=== PATIENT | male | born 1950 | race Caucasian/White ===

== ENCOUNTER 2017-08-20 19:31 | Emergency (ER) | payer MEDICARE, OTHER ==
[~2017-08-20] VITALS: Ht 172.7 cm; Wt 77.1 kg
[~2017-08-20 19:31] MED LIST: APPLE CIDER VINEGAR; DICLOFENAC SODI75 MG PO; MECLIZINE HCL25 MG PO; OMEGA-3 SOFTGE1 EACH PO; REFRESH15 ML OP
[2017-08-20] MEDS ORDERED: OFLOXACIN5 M1 OP (19:44)
== END 2017-08-20 20:04 | disposition home or self-care (01) ==
LOC: ED 19:31
DX: S91.331A Puncture wound without foreign body, right foot, initial encounter (principal); Z79.899 Other long term (current) drug therapy; Z23 Encounter for immunization; W22.09XA Striking against other stationary object, initial encounter
CPT/HCPCS: 90471; 90715; 99282

== ENCOUNTER 2019-04-09 12:51 | Day surgery (SDC) | payer MEDICARE, OTHER ==
[~2019-04-09] VITALS: Ht 172.7 cm; Wt 78.0 kg
[~2019-04-09 12:51] MED LIST changes: +FISH OIL 1,0001 EAC2 NG; +OFLOXACIN5 M1 OP
--- NOTE | 2019-04-09 14:22 | NUR ---
04/09/19 1422 Sheets,Apurva 1406 PT ARRIVED TO PACU, PT WAKES OFF AND ON AND TALKS TO RN. PT DENIES PAIN AND NAUSEA. PT ENCOURAGED TO PASS GAS. 1415 O2 REMOVED, PT WAKES AND TALKING TO RN. HOB INCREASED SLIGHTLY.
--- NOTE | 2019-04-10 14:56 | PATH ---
[facility] [address] [place], [place] [address] Signed SPECIMEN(S): A RECTAL POLYP SPECIMEN SOURCE: A. RECTAL POLYP CLINICAL HISTORY: Surveillance. Postop: Hyperplastic lesion rectosigmoid. MICROSCOPIC DESCRIPTION: Histologic sections of all submitted blocks are examined by light microscopy. These findings, together with the gross examination, support the pathologic diagnosis. FINAL PATHOLOGIC DIAGNOSIS: Rectum, polyp, polypectomy: - Fragments of rectal mucosa with no histopathologic abnormality. - Negative for dysplasia or malignancy. COMMENT: Multiple additional levels were examined. Benign lymphoid aggregates are seen, which can sometimes appear as a polypoid mass during colonoscopy. Clinical correlation is required. NAL:caw:C2NR GROSS DESCRIPTION: The specimen, labeled "DT, rectal polyp," is received in formalin and consists of two pink-kinney soft tissue fragment(s) that measure 0.3-0.4 cm in greatest dimension. The specimen is entirely submitted in cassette (A1). JS (under the direct supervision of a pathologist) The Gross Description was prepared using a voice recognition system. The report was reviewed for accuracy; however, sound-alike word errors, addition and/or deletions may occur. If there is any question about this report, please contact Client Services. PERFORMING LABORATORY: The technical component was performed by [email or web address], [address] [place] [id number] (Licensed Customs Broker: Benita Holley MD; CLIA# [id number]). [facility], [address] [address] (Licensed Customs Broker: Taiwo Oviedo MD; CLIA# [id number]). PATIENT NAME: SONIYA MENESES PATHOLOGY DATE OF : 46 REPORT #: [id number] PHYSICIAN: CHERELLEYTE PATHOLOGY PCP: OSWALD TALAVERA MD REPORT IS CONFIDENTIAL AND NOT TO BE RELEASED WITHOUT AUTHORIZATION [address] [address] Signed Diagnostician: Tessa Finley MD Pathologist Electronically Signed 04/10/2019 Copies: ~ PATIENT NAME: SONIYA MENESES PATHOLOGY DATE OF : 46 REPORT #: [id number] PHYSICIAN: RACHEAL PATHOLOGY PCP: OSWALD TALAVERA MD REPORT IS CONFIDENTIAL AND NOT TO BE RELEASED WITHOUT AUTHORIZATION
--- NOTE | 2019-04-11 12:08 | OR ---
[facility] [address] [place], [place] [address] Signed DATE OF OPERATION: 04/09/2019 SURGEON: Mckenna Gordon MD PREOPERATIVE DIAGNOSES: 1. Family history of colon cancer (father). 2. Surveillance colonoscopy. POSTOPERATIVE DIAGNOSIS: Linear possibly hyperplastic versus adenomatous lesion of rectosigmoid. PROCEDURE PERFORMED: Total colonoscopy to cecum with biopsy of rectosigmoid mucosal lesion. ANESTHESIA: Intravenous sedation, fentanyl 100 mcg, Versed 5 mg. INDICATION: This 68-year-old white man is a patient of Dr. Maurer and well known to me from the past having undergone colonoscopy in 2001, 2005, and 2011. He does have family history of colon cancer in his father and polyps in a brother. He is currently symptom free. He is admitted to undergo surveillance colonoscopy, understand the risks of bleeding, infection, and perforation. Additionally, the patient has a history of total knee replacement and Ancef antibiotic was given preoperatively. FINDINGS: The prep was excellent. Complete colonoscopy was undertaken to the cecum without question. It had a linear lesion of the rectosigmoid, which may have been hyperplastic versus adenomatous. It was multiply biopsied. There were no other findings of concern. DESCRIPTION OF PROCEDURE: The patient was brought to the endoscopy suite and placed in lateral decubitus position, given intravenous sedation to the point of slurred speech and nystagmus. Digital rectal examination was normal. An Olympus video colonoscope was passed in the rectum and manipulated throughout the colon ultimately intubating the cecum. The ileocecal valve and appendiceal orifice were well visualized. The scope was then withdrawn and examination throughout showed no sign of abnormality into the rectosigmoid where a linear mucosal lesion was noted. Narrow band imaging showed this to be of uncertain etiology. Multiple biopsies were taken of Electronically Signed By: MCKENNA GORDON MD 04/11/19 1208 PATIENT NAME: SONIYA MENESES OPERATIVE REPORT DATE OF : 46 REPORT #: [id number] PHYSICIAN: MCKENNA GORDON MD PCP: SHUBHAM MAURER MD REPORT IS CONFIDENTIAL AND NOT TO BE RELEASED WITHOUT AUTHORIZATION [facility] [address] [place], [place] [address] Signed the lesion. The scope was then retroflexed, showing a bit of anal papilla hypertrophy, but no other abnormality. The scope was straightened, withdrawn, removed, and the patient was taken to recovery room in good condition. CONCLUDING DIAGNOSIS: Mucosal lesion in the rectosigmoid, uncertain etiology, biopsied. PLAN: Recommend repeat colonoscopy in 5 years due to family history of colon cancer in his father, sooner if symptoms should develop. We will be mindful of the pathology report pending regarding the rectosigmoid biopsy. MD CARMEN Barron/MODL /[id number] cc: Shubham Maurer MD Copies: SHUBHAM MAURER MD ~ Electronically Signed By: MCKENNA GORDON MD 04/11/19 1208 PATIENT NAME: SONIYA MENESES OPERATIVE REPORT DATE OF : 46 REPORT #: [id number] PHYSICIAN: MCKENNA GORDON MD PCP: SHUBHAM MAURER MD REPORT IS CONFIDENTIAL AND NOT TO BE RELEASED WITHOUT AUTHORIZATION
== END 2019-04-09 15:37 | disposition home or self-care (01) ==
LOC: OPS 12:51 → DS 14:00 → OPS 15:37
PROVIDERS: Surgery
PROC: 0DBP8ZX Excision of Rectum, Via Natural or Artificial Opening Endoscopic, Diagnostic (ICD-10-PCS; principal; 2019-04-09 14:00)
DX: Z12.11 Encounter for screening for malignant neoplasm of colon (principal); K62.1 Rectal polyp; Z80.0 Family history of malignant neoplasm of digestive organs; Z98.890 Other specified postprocedural states
CPT/HCPCS: 99153; G0500; J0690; J2250; J3010; J7121

== ENCOUNTER 2019-09-03 12:34 | Emergency (ER) | payer MEDICARE, OTHER ==
[~2019-09-03] VITALS: Ht 172.7 cm; Wt 82.5 kg
--- OUTSIDE RECORDS SUMMARY | ~2019-09-03 | XMS | Encounter Summary ---
Demographics + + + | Address | [address] | | | [place] [address] | + + + | Home Phone | | + + + | Preferred Language | Unknown | + + + | Marital Status | Single | + + + | Sabianism Affiliation | 1077 | + + + | Race | Unknown | + + + | Ethnic Group | Unknown | + + + Author + + + | Author | [facility] | | | and [place] | + + + | Organization | [facility] | | | and [place] | + + + | Address | Unknown | + + + | Phone | Unavailable | + + + Support + + + + + | Name | Relationship | Address | Phone | + + + + + | Ron Day | ECON | Unknown | | + + + + + | Henok Day | ECON | Unknown | | + + + + + | Bruno Day | ECON | Unknown | | + + + + + | Yung Vivar | ECON | [place] | | | | | [address] | | + + + + + | Santo Cervantes | ECON | Unknown | | + + + + + Care Team Providers + +------+ + | Care Shampoo Person Name | Role | Phone | + +------+ + | Shubham Maurer MD | PCP | | + +------+ + Reason for Visit + + + | Reason | Comments | + + + | Follow-up | left knee pain onset 1 month | + + + Encounter Details +--------+---------+ + + + | Date | Type | Department | Care Team | Description | +--------+---------+ + + + | 10/05/ | Office | [facility] | Julius Nowak | Primary | | 2019 | Visit | ORTHOPEDIC SURGERY | MD Liliana [address] [facility] | osteoarthritis of | | | | [address] [place] [address] | [place] | left knee (Primary | | | | [place] | [address] | Dx) | | | | [address] | | | | | | [phone] | | | +--------+---------+ + + + Social History + +-------+ +--------+------+ | Tobacco Use | Types | Packs/Day | Years | Date | | | | | Used | | + +-------+ +--------+------+ | Never Smoker | | | | | + +-------+ +--------+------+ + +---+---+---+ | Smokeless Tobacco: | | | | | Never Used | | | | + +---+---+---+ + + +---------+ + | Alcohol Use | Drinks/Week | oz/Week | Comments | + + +---------+ + | Yes | 0 Standard drinks | 0.0 | | | | or equivalent | | | + + +---------+ + + + + | Sex Assigned at | Date Recorded | | | | + + + | Not on file | | + + + + + + + | Job Start Date | Occupation | Industry | + + + + | Not on file | Not on file | Not on file | + + + + + + + + | Travel History | Travel Start | Travel End | + + + + + + | No recent travel history available. | + + documented as of this encounter Last Filed Vital Signs + + + + + | Vital Sign | Reading | Time Taken | Comments | + + + + + | Blood Pressure | - | - | | + + + + + | Pulse | - | - | | + + + + + | Temperature | - | - | | + + + + + | Respiratory Rate | - | - | | + + + + + | Oxygen Saturation | - | - | | + + + + + | Inhaled Oxygen | - | - | | | Concentration | | | | + + + + + | Weight | 78.5 kg (173 lb) | 10/05/2018 11:56 AM | | | | | PDT | | + + + + + | Height | 171.5 cm (5' 7.5") | 10/05/2018 11:56 AM | | | | | PDT | | + + + + + | Body Mass Index | 26.7 | 10/05/2018 11:56 AM | | | | | PDT | | + + + + + documented in this encounter Progress Notes Julius Nowak MD - 10/05/2018 11:45 AM Colette returns for a complaint of left knee pain. He underwent a right total knee on 12/19/2017 which has gone on to do well. He is now noting left knee discomfort associated with vigorous activity. He does have known osteoar throsis of the left knee. Examination: Exam of the left knee reveals that his left knee range of motion is approximat john 8 to 115 degrees with pain at the limits of motion. The left knee is tender over the me dial and lateral joint lines. However, the left knee ligaments are stable and neurovascular function is intact to the left foot. Imaging: X-rays taken of the left knee last October are reviewed which show moderate degener ative joint disease with medial compartment narrowing and chondrocalcinosis. Advice: We have discussed our findings with Don. He is still getting along fairly well and is walking a mile a day. He notes occasional pain in his left knee but feels that it is st ill functioning satisfactorily. We therefore have suggested ongoing conservative management with Visco supplementation that he has found helpful in the past. He would like to procee d with a repeat left knee Visco supplementation injection and will return for this following financial clearance. documented in this encounter Plan of Treatment Not on filedocumented as of this encounter Visit Diagnoses + + | Diagnosis | + + | Primary osteoarthritis of left knee - Primary Primary localized osteoarthrosis, lower | | leg | + + documented in this encounter
--- OUTSIDE RECORDS SUMMARY | ~2019-09-03 | XMS | Encounter Summary ---
Demographics + + + | Address | [address] | | | [place] [address] | + + + | Home Phone | | + + + | Preferred Language | Unknown | + + + | Marital Status | Single | + + + | Alevism Affiliation | 1077 | + + + | Race | Unknown | + + + | Ethnic Group | Unknown | + + + Author + + + | Author | [facility] | | | and [place] | + + + | Organization | [facility] | | | and [place] | [...] [place] | | | | | [address] | | + + + + + | Santo Cervantes | ECON | Unknown | | + + + + + Care Team Providers + +------+ + | Care Manager Corporate Name | Role | Phone | + +------+ + | Shubham Maurer MD | PCP | | + +------+ + Encounter Details +--------+ + + + + | Date | Type | Department | Care Team | Description | +--------+ + + + + | 03/26/ | Hospital | [facility] | Min Tello MD | Lumbar | | 2015 | Encounter | MED CTR XRAY [address] | radiculopathy; Other | | | | [place] | [place] [address] | secondary | | | | [place] [address] | [phone] | scoliosis, lumbar | | | | [phone] | | region; Degenerative | | | | | Ron Montero MD | disc disease, | | | | | [address] [place] [address] | lumbar; Facet | | | | | [place], [place] | arthropathy, lumbar; | | | | | [address] | Lumbar spinal | | | | | | stenosis; Foraminal | | | | | | stenosis of lumbar | | | | | | region | +--------+ + + + + Social History + +-------+ [...] | 0 Standard drinks | 0.0 | Rare | | | or equivalent | | [...] + + documented as of this encounter Medications at Time of Discharge + + + +---------+--------+ + | Medication | Sig | Dispensed | Refills | Start | End Date | | | | | | Date | | + + + +---------+--------+ + | cholecalciferol | Take 1,000 Units by | | 0 | | / | | (VITAMIN D-3) 1,000 | mouth Daily. | | | | 6 | | units capsule | | | | | | + + + +---------+--------+ + | GCY-UKJ-Lolbyba E | Take 2 capsules by | | 0 | | 05/25/201 | | (OMEGA-3 COMPLEX PO) | mouth Daily. | | | | 6 | + + + +---------+--------+ + | diclofenac | Take 75 mg by mouth | | 0 | | | | (VOLTAREN) 75 mg EC | 2 times daily. | | | | 6 | | tablet | | | | | | + + + +---------+--------+ + | FERROUS SULFATE PO | Take by mouth | | 0 | | | | | Daily. | | | | 6 | + + + +---------+--------+ + | Henniker-3 Krill Oil | Take 2 capsules by | | 0 | | | | 500 MG CAPS | mouth 2 times daily. | | | | 6 | + + + +---------+--------+ + | PLANT STEROLS AND | Take by mouth 2 | | 0 | | | | STANOLS PO | times daily. | | | | 6 | + + + +---------+--------+ + | Red Yeast Rice 600 | Take 1 capsule by | | 0 | | | | MG CAPS | mouth 2 times daily. | | | | 6 | + + + +---------+--------+ + | TURMERIC PO | Take by mouth 2 | | 0 | | | | | times daily. | | | | 6 | + + + +---------+--------+ + documented as of this encounter Plan of Treatment Not on filedocumented as of this encounter Procedures + +--------+ + + + | Procedure Name | Priori | Date/Time | Associated Diagnosis | Comments | | | ty | | | | + +--------+ + + + | XR CHEST PA AND | Routin | 03/26/2015 | Lumbar | Results for this | | LATERAL | e | 11:55 AM | radiculopathy Other | procedure are in the | | | | PST | secondary | results section. | | | | | scoliosis, lumbar | | | | | | region Degenerative | | | | | | disc disease, | | | | | | lumbar Facet | | | | | | arthropathy, lumbar | | | | | | Lumbar spinal | | | | | | stenosis Foraminal | | | | | | stenosis of lumbar | | | | | | region | | + +--------+ + + + documented in this encounter Results XR Chest PA and Lateral (03/26/2015 11:55 AM PST) + + | Specimen | + + | | + + + + + | Narrative | Performed At | + + + | EXAM: XR CHEST PA AND LATERAL dated 03/26/2015 11:55 AM HISTORY: | [facility] | | preoperative clearance Comparison: None. TECHNIQUE: Frontal | [facility] | | and lateral views of the chest. FINDINGS: The lungs are | [facility] | | symmetrically aerated. They are clear. There are no pleural | - IMAGING | | effusions. There is no pneumothorax. The cardiac and mediastinal | | | contours are not enlarged. Focal levoconvex scoliosis in the upper | | | thoracic spine. IMPRESSION - Negative two-view chest | | | radiograph. Dictated and Signed by: Jeronimo Marr MD | | | Electronically signed: 03/26/2015 1:32 PM | | + + + + + | Procedure Note | + + | Luis, Reggie Results In - 03/26/2015 1:35 PM PST EXAM: XR CHEST PA AND LATERAL dated | | 03/26/2015 11:55 AMHISTORY: preoperative clearanceComparison: None.TECHNIQUE: Frontal | | and lateral views of the chest.FINDINGS:The lungs are symmetrically aerated. They are | | clear. There are no pleuraleffusions. There is no pneumothorax. The cardiac and | | mediastinal contours arenot enlarged. Focal levoconvex scoliosis in the upper thoracic | | spine.IMPRESSION -Negative two-view chest radiograph. Dictated and Signed by: Jeronimo Ceron | | MD Justa Electronically signed: 03/26/2015 1:32 PM | | | |FINDINGS: | |The lungs are symmetrically aerated. They are clear. There are no pleural | |effusions. There is no pneumothorax. The cardiac and mediastinal contours are | |not enlarged. Focal levoconvex scoliosis in the upper thoracic spine. | | | |IMPRESSION - | | | |Negative two-view chest radiograph. | | | |Dictated and Signed by: Jeronimo Marr MD | | Electronically signed: 03/26/2015 1:32 PM | + + + + + + + | Performing | Address | City/State/Zipcode | Phone Number | | Organization | | | | + + + + + | [place] | [address] | [place] | [phone] | | [facility] | | [address] | | | - IMAGING | | | | + + + + + documented in this encounter Visit Diagnoses + + | Diagnosis | + + | Lumbar radiculopathy Thoracic or lumbosacral neuritis or radiculitis, unspecified | + + | Other secondary scoliosis, lumbar region | + + | Degenerative disc disease, lumbar Degeneration of lumbar or lumbosacral | | intervertebral disc | + + | Facet arthropathy, lumbar Lumbosacral spondylosis without myelopathy | + + | Lumbar spinal stenosis Spinal stenosis, lumbar region, without neurogenic | | claudication | + + | Foraminal stenosis of lumbar region Spinal stenosis, lumbar region, without | | neurogenic claudication | + + documented in this encounter"
--- OUTSIDE RECORDS SUMMARY | ~2019-09-03 | XMS | Encounter Summary ---
Demographics + + + | Address | [address] | | | [place] [address] | + + + | Home Phone | | + + + | Preferred Language | Unknown | + + + | Marital Status | Single | + + + | Baptist Affiliation | 1077 | + + + | Race | Unknown | + + + | Ethnic Group | Unknown | + + + Author + + + | Author | [facility] | | | and [place] | + + + | Organization | [facility] | | | and [place] [...] [place] | | | | | [address] | | + + + + + | Santo Cervantes | ECON | Unknown | | + + + + + Care Team Providers + +------+ + | Care Levi Maker Name | Role | Phone | + +------+ + | Shubham Maurer MD | PCP | | + +------+ + Reason for Referral Evaluate & Treat (Routine) +--------+ + + + + + | Status | Reason | Specialty | Diagnoses / | Referred By | Referred To | | | | | Procedures | Contact | Contact | +--------+ + + + + + | Closed | Specialty | Physical | Diagnoses | [facility], | | | | Services | Therapy | Status post | Damian | | | | Required | | right knee | [facility]CCA [facility] | | | | | | replacement | [address] | | | | | | | [address] [place] | | | | | | | [place] | | | | | | | [address] | | | | | | | Phone: | | | | | | | [phone] | | | | | | | Fax: | | | | | | | [phone] | | +--------+ + + + + + Reason for Visit +--------+ + | Reason | Comments | +--------+ + | Other | | +--------+ + Encounter Details +--------+ + + + + | Date | Type | Department | Care Team | Description | +--------+ + + + + | 01/04/ | Telephone | [facility] | Damian Escobedo | Other | | 2017 | | ORTHOPEDIC SURGERY | [address] | | | | | [address] [facility] | [address] | | | | | [place] | [place] [address] | | | | | [address] | [phone] | | | | | [phone] | | | +--------+ + + + [...] as of this encounter Plan of Treatment + + +--------+ + + | Name | Type | Priori | Associated Diagnoses | Order Schedule | | | | ty | | | + + +--------+ + + | * [facility] | Outpatient | Routin | Status post right | Ordered: 01/09/2018 | | Therapy - AMB | Referral | e | knee replacement | | | Referral | | | | | + + +--------+ + + documented as of this encounter Visit Diagnoses + + | Diagnosis | + + | Status post right knee replacement - Primary | + + | Status post knee replacement, unspecified laterality | + + documented in this encounter"
--- OUTSIDE RECORDS SUMMARY | ~2019-09-03 | XMS | Encounter Summary ---
Demographics + + + | Address | [address] | | | [place] [address] | + + + | Home Phone | | + + + | Preferred Language | Unknown | + + + | Marital Status | Single | + + + | Jew Affiliation | 1077 | + + + | Race | Unknown | + + + | Ethnic Group | Unknown | + + + Author + + + | Author | [facility] | | | and [place] | + + + | Organization | [facility] | | | and [place] [...] [place] | | | | | [address] | | + + + + + | Santo Cervantes | ECON | Unknown | | + + + + + Care Team Providers + +------+ + | Care Hotel Clerk Name | Role | Phone | + +------+ + | Shubham Maurer MD | PCP | | + +------+ + Reason for Visit + + + | Reason | Comments | + + + | Knee Pain | | + + + Encounter Details +--------+ + + + + | Date | Type | Department | Care Team | Description | +--------+ + + + + | 06/10/ | Telephone | [facility] | Min Tello MD | Knee Pain | | 2016 | | NEUROSURGERY [address] | | | | | [address] | [place] [address] | | | | | [place] | [phone] | | | | | [address] | | | | | | [phone] | | | +--------+ + + + [...] filedocumented as of this encounter Visit Diagnoses Not on filedocumented in this encounter"
--- OUTSIDE RECORDS SUMMARY | ~2019-09-03 | XMS | Encounter Summary ---
Demographics + + + | Address | [address] | | | [place] [address] | + + + | Home Phone | | + + + | Preferred Language | Unknown | + + + | Marital Status | Single | + + + | Orthodoxy Affiliation | 1077 | + + + | Race | Unknown | + + + | Ethnic Group | Unknown | + + + Author + + + | Author | [facility] | | | and [place] | + + + | Organization | [facility] | | | and [place] [...] [place] | | | | | [address] | | + + + + + | [place]erv[place] | ECON | Unknown | | + + + + + Care Team Providers + +------+ + | Care Slot Machine Mechanic Name | Role | Phone | + +------+ + | Shubham Maurer MD | PCP | | + +------+ + Encounter Details +--------+ + + + + | Date | Type | Department | Care Team | Description | +--------+ + + + + | 01/24/ | Hospital | [facility] | Damian Escobedo | Status post right | | 2018 | Encounter | [facility] | [address] | knee replacement; | | | | [address] [place] | [address] | Right knee pain, | | | | [place] | [place] [address] | unspecified | | | | [address] | [phone] | chronicity | | | | [phone] | | | +--------+ + + + [...] + + + +---------+ + + | fish oil 1,000 mg | Take 1,000 mg by | | 0 | | | | capsule | mouth Daily. | | | | 9 | + + + +---------+ + + documented as of this encounter Plan of Treatment Not on filedocumented as of this encounter Procedures + +--------+ + + + | Procedure Name | Priori | Date/Time | Associated Diagnosis | Comments | | | ty | | | | + +--------+ + + + | XR KNEE RIGHT 1 - 2 | Routin | 01/24/2018 | Status post right | Results for this | | VW | e | 1:26 PM | knee replacement | procedure are in the | | | | PDT | Right knee pain, | results section. | | | | | unspecified | | | | | | chronicity | | + +--------+ + + + documented in this encounter Results XR Knee Right 1 - 2 Vw (01/24/2018 1:26 PM PDT) + + | Specimen | + + | | + + + + + | Narrative | Performed At | + + + | XR KNEE RIGHT 1 - 2 VW 01/24/2018 1:26 PM HISTORY: S/P RIGHT | [facility] | | TOTAL KNEE ARTHROPLASTY dos 12/19/17. COMPARISON: 12/19/2017 | | | FINDINGS: There is hardware for right knee arthroplasty that is | | | intact with no evidence for loosening. Bone mineralization is normal. | | | There is no significant joint effusion. Decreasing mild soft tissue | | | swelling throughout the right anterior knee soft tissues. | | | IMPRESSION - Intact right knee arthroplasty. Dictated and Signed | | | by: Dewey Lemon MD Electronically signed: 01/24/2018 2:03 PM | | | | | + + + + + | Procedure Note | + + | Luis, Rad Results In - 01/24/2018 2:07 PM PDT XR KNEE RIGHT 1 - 2 VW 01/24/2018 1:26 | | PMHISTORY: S/P RIGHT TOTAL KNEE ARTHROPLASTY dos 12/19/17.COMPARISON: | | 12/19/2017FINDINGS:There is hardware for right knee arthroplasty that is intact with no | | evidencefor loosening. Bone mineralization is normal. There is no significant | | jointeffusion.Decreasing mild soft tissue swelling throughout the right anterior knee | | softtissues.IMPRESSION -Intact right knee arthroplasty. Dictated and Signed by: Dewey | | MD Xochilt Electronically signed: 01/24/2018 2:03 PM | |There is hardware for right knee arthroplasty that is intact with no evidence | |for loosening. Bone mineralization is normal. There is no significant joint | |effusion. | |Decreasing mild soft tissue swelling throughout the right anterior knee soft | |tissues. | | | |IMPRESSION - | |Intact right knee arthroplasty. | | | |Dictated and Signed by: Dewey Lemon MD | | Electronically signed: 01/24/2018 2:03 PM | + + + +---------+ + + | Performing | Address | City/State/Zipcode | Phone Number | | Organization | | | | + +---------+ + + | [facility] | | | | + +---------+ + + documented in this encounter Visit Diagnoses + + | Diagnosis | + + | Status post right knee replacement | + + | Right knee pain, unspecified chronicity | + + documented in this encounter"
--- OUTSIDE RECORDS SUMMARY | ~2019-09-03 | XMS | Encounter Summary ---
Demographics + + + | Address | [address] | | | [place] [address] | + + + | Home Phone | | + + + | Preferred Language | Unknown | + + + | Marital Status | Single | + + + | Latter-Day Affiliation | 1077 | + + + | Race | Unknown | + + + | Ethnic Group | Unknown | + + + Author + + + | Author | [facility] | | | and [place] | + + + | Organization | [facility] | | | and [place] [...] [place] | | | | | [address] | | + + + + + | Santo Cervantes | ECON | Unknown | | + + + + + Care Team Providers + +------+ + | Care Catalyst Operator Gasoline Name | Role | Phone | + +------+ + | Shubham Maurer MD | PCP | | + +------+ + Reason for Visit + + + | Reason | Comments | + + + | Back Pain | Discuss CT | + + + Encounter Details +--------+---------+ + + + | Date | Type | Department | Care Team | Description | +--------+---------+ + + + | 12/29/ | Office | [facility] | Min Tello MD | S/P lumbar fusion | | 2016 | Visit | NEUROSURGERY [address] | [address] | (Primary Dx); DDD | | | | [address] | [place] [address] | (degenerative disc | | | | [place] | [phone] | disease), lumbar | | | | [address] | | | | | | [phone] | | | +--------+---------+ + + + [...] + + + | Blood Pressure | 104/62 | 12/30/2015 3:53 PM | | | | | PDT | | + + + + + | Pulse | 59 | 12/30/2015 3:53 PM | | | | | PDT | | + + + + + | Temperature | - | - | | + + + + + | Respiratory Rate | 16 | 12/30/2015 3:53 PM | | | | | PDT | | + + + + + | Oxygen Saturation | - | - | | + + + + + | Inhaled Oxygen | - | - | | | Concentration | | | | + + + + + | Weight | 80.2 kg (176 lb 12.8 | 12/30/2015 3:53 PM | | | | oz) | PDT | | + + + + + | Height | 172.7 cm (5' 8") | 12/30/2015 3:53 PM | | | | | PDT | | + + + + + | Body Mass Index | 26.88 | 12/30/2015 3:53 PM | | | | | PDT | | + + + + + documented in this encounter Progress Notes Min Tello MD - 12/31/2015 8:44 AM PDTFormatting of this note might be different from t isabel original. .. Min Tello MD [address] [place] [address], [address] [place] [address] FAX: NEUROSURGERY FOLLOW-UP CHIEF COMPLAINT: Chief Complaint Patient presents with Back Pain Discuss CT HISTORY OF PRESENT ILLNESS: The patient is a 65 y.o. male that had a lumbar fusion around 9 months ago. He has been doing better over the last several months and presents reporting that his strength is again improving and his symptoms are decreasing. He continues to exer cise and gradually increase his activities. CURRENT MEDICATIONS: Current Outpatient Prescriptions Medication Sig Dispense Refill diclofenac (VOLTAREN) 75 mg EC tablet Take 75 mg by mouth 2 times daily. mometasone (ELOCON) 0.1 % cream Apply 1 Application topically Daily. [place]-3 Fatty Acids (OMEGA 3 PO) Take 2 capsules by mouth 2 times daily. No current facility-administered medications for this visit. ALLERGIES: No Known Allergies SOCIAL HISTORY: The patient reports that he has never smoked. He has never used smokeless tobacco. He repo rts that he drinks alcohol. He reports that he does not use illicit drugs. INTERIM PHYSICAL EXAMINATION: Blood pressure 104/62, pulse 59, resp. rate 16, height 1.727 m (5' 8"), weight 80.196 kg (1 76 lb 12.8 oz). Body mass index is 26.89 kg/(m^2). GENERAL: Raúl Day is in no acute distress with unlabored respirations. SPINE: The patient s incisions are healing well without drainage, significant erythema, o r discharge. EXTREMITIES: No lower extremity edema. NEUROLOGICAL EXAMINATION: MENTAL STATUS: The patient is awake, alert, and oriented. He follows simple and complex commands MOTOR EXAM: Motor strength is 5/5 left dorsiflexion and EHL. 4/5 dorsiflexion and EHL on r ight side. SENSORY EXAM: The sensory examination is shows anterior foot numbness on the right side RADIOGRAPHIC REVIEW: MRI of the patient's lumbar spine shows disease at L1-2 and L2-3 with central spinal stenos is ranging from moderate to moderately severe. His canal at L3-S1 is markedly improved. CT imaging shows slight halo around his right S1 screw. His fusion has increased at each s egment. ASSESSMENT: Encounter Diagnoses Name Primary? S/P lumbar fusion Yes DDD (degenerative disc disease), lumbar Past Medical History Diagnosis Date Degenerative disc disease, lumbar Hard of hearing bilateral hearing aids PLAN: The patient is doing better now. He continues to use his bone growth stimulator and increases in his activities have helped him. I would like to see him back in about 3 months and follow-up on his progress or the lack th ereof. Hopefully he will have another good series of months. ELECTRONICALLY SIGNED BY: Min Tello MD, 12/31/2015 8:44 [facility] Plan [facility] Treatment Not on filedocumented as of this encounter Visit Diagnoses + + | Diagnosis | + + | S/P lumbar fusion - Primary Arthrodesis status | + + | DDD (degenerative disc disease), lumbar Degeneration of lumbar or lumbosacral | | intervertebral disc | + + documented in this encounter
--- OUTSIDE RECORDS SUMMARY | ~2019-09-03 | XMS | Encounter Summary ---
Demographics + + + | Address | [address] | | | [place] [address] | + + + | Home Phone | | + + + | Preferred Language | Unknown | + + + | Marital Status | Single | + + + | Yazidi Affiliation | 1077 | + + + | Race | Unknown | + + + | Ethnic Group | Unknown | + + + Author + + + | Author | [facility] | | | and [place] | + + + | Organization | [facility] | | | and [place] [...] [place] | | | | | [address] | | + + + + + | [place] | ECON | Unknown | | + + + + + Care Team Providers + +------+ + | Care Wildlife Biologist Name | Role | Phone | + [...] | | | | | | | [place] TOTAL | | | | | | [...] + + + + | 12/19/ | Anesthesia | [facility] | Abeba Han | | | 2017 | Event | [facility] | DO [place] [address] | | | | | [address] | [facility] | | | | | [place] | [place] [address] | | | | | [address] | [phone] | | | | | [phone] | | | +--------+ + + + + Anesthesia Record + + + + + | Procedure Name | Responsible | Anesthesia Start | Anesthesia Stop Time | | | Anesthesiologist | Time | | + + + + + | RIGHT ARTHROPLASTY | Abeba Han, | 12/19/17 1209 | 12/19/17 1359 | | KNEE (Right Knee) | DO | | | + + + + + +----+---+ + + | Da | T | Event | Comment | | te | i | | | | | m | | | | | e | | | +----+---+ + + | 09 | 1 | An Checkout | Pre-use anesthesia machine/equipment checkout. | | /2 | 1 | | | | 4/ | 4 | | | | 20 | 0 | | | | 18 | | | | +----+---+ + + | | 1 | | | | | 1 | | | | | 5 | | | | | 0 | | | +----+---+ + + | | 1 | An Start | Reassessment prior to anesthesia induction/procedure. | | | 2 | | | | | 0 | | | | | 9 | | | +----+---+ + + | | 1 | An Start | | | | 2 | Data | | | | 0 | | | | | 9 | | | +----+---+ + + | | 1 | Preoxygenat | | | | 2 | ed | | | | 1 | | | | | 1 | | | +----+---+ + + | | 1 | An | | | | 2 | Induction | | | | 1 | | | | | 2 | | | +----+---+ + + | | 1 | An | | | | 2 | Intubation | | | | 1 | | | | | 3 | | | +----+---+ + + | | 1 | [place] | | | | 2 | 43-degrees | | | | 2 | | | | | 6 | | | +----+---+ + + | | 1 | First | | | | 2 | Inc/Proc St | | | | 2 | | | | | 9 | | | +----+---+ + + | | 1 | [place] off | | | | 3 | | | | | 4 | | | | | 9 | | | +----+---+ + + | | 1 | Extubated | | | | 3 | Awake | | | | 5 | | | | | 5 | | | +----+---+ + + | | 1 | an stop | | | | 3 | data | | | | 5 | | | | | 5 | | | +----+---+ + + | | 1 | An Stop | Patient handed off to recovery nurse. | | | 5 | | | | | 9 | | | +----+---+ + + +------+ | Meds | +------+ + + + | Name | Total | + + + | fentaNYL injection (2 mL) | 75 mcg | + + + | ropivacaine 0.5% | 30 mL | + + + | lidocaine 2% (PF) | 10 mL | + + + | propofol (DIPRIVAN) injection | 200 mg | | (bolus) (20 mL) | | + + + | propofol | 183.21 mg | + + + | ePHEDrine | 5 mg | + + + | dexamethasone | 5 mg | + + + | tranexamic acid | 2,000 mg | + + + | ceFAZolin (ANCEF, KEFZOL) 100 | 2 g | | mg/mL IV syringe 2 g | | + + + | lidocaine 1% | 40 mg | + + + | lactated ringers (LR) infusion | 0 mL | + + + + + | Name | + + | N2O Flow Rate (L/Min) | + + | O2 Flow Rate (L/Min) | + + | Insp O2 | + + | Exp SEV | + + | Air Flow Rate (L/Min) | + + + + | No blood administrations on file. | + + +--------+ + + + | Type | Details | Placement | Removal | +--------+ + + + | Periph | 12/19/17; 1040; Left; Forearm; | 12/19/17 1040 by | 12/20/17 0425 by | | eral | [id number] catheter system; | Ying Mcgovern, | Francoise Darby, | | IV | 18 gauge, 1 1/4 in length; | RN | RN | | | distraction, intradermal | | | | | injection; removed inadvertently; | | | | | 12/20/17; 0425 | | | +--------+ + + + | Airway | Placement Date: 12/19/17; | 12/19/17 1214 by | 12/19/17 1355 by | | | Placement Time: 1214 (created via | Abeba Han, | Abeba Han, | | | procedure documentation); Mask | DO | DO | | | Ventilation: EZ; Attempts: 1; | | | | | Airway Type: laryngeal mask; | | | | | Size: 5; Trauma: none; Placement | | | | | Check: exhaled CO2 detection | | | | | device; Removal Date: 12/19/17; | | | | | Removal Time: 1355 | | | +--------+ + + + | Read | 12/19/17; 1231; Right; knee; | 12/19/17 1231 by | 12/22/17 1504 by | | only - | healing within expectations; | Madelyn Juarez RN | Adelita Benson RN | | | 12/22/17; 1504 | | | | Incisi | | | | | on | | | | +--------+ + + + documented in this encounter Social History + +-------+ +--------+------+ | Tobacco [...] | + +--------+ + + + | ANE AIRWAY NOTE | Routin | 12/19/2017 | | Results for this | | | e | 12:18 PM | | procedure are in the | | | | PDT | | results section. | + +--------+ + + + | ANE NERVE BLOCK | Routin | 12/19/2017 | | Results for this | | CATHETER NOTE | e | 12:09 PM | | procedure are in the | | | | PDT | | results section. | + +--------+ + + + | ANE NERVE BLOCK | Routin | 12/19/2017 | | Results for this | | CATHETER NOTE | e | 12:09 PM | | procedure are in the | | | | PDT | | results section. | + +--------+ + + + documented in this encounter Results Anesthesia Airway Note (12/19/2017 12:18 PM PDT) + + + | Narrative | Performed At | + + + | Abeba Han DO 12/19/2017 12:18 Anesthesia Airway | | | Placement 12/19/2017 12:14 Preprocedure check: patient identified, | | | oxygen, airway assessed, patient reassessment prior to induction, | | | airway equipment checked and suction Rapid Sequence Induction: no | | | Mask ventilation: easy Attempts: 1 Airway type: laryngeal mask | | | Size: 5 Tube secured with: adhesive tape Trauma: none Tube | | | placement verification: carbon dioxide detection Performing provider: | | | ABEBA HAN Electronically Signed by: Abeba Han | | Jose Chaparrog date/time: | | | 12/19/2017 12:18 | | + + + + + | Procedure Note | + + | Abeba Han DO - 12/19/2017 12:18 PM PDT Anesthesia Airway | | Placement12/19/2017 12:14Preprocedure check: patient identified, oxygen, airway assessed, | | patient reassessment prior to induction, airway equipment checked and suctionRapid | | Sequence Induction: noMask ventilation: easyAttempts: 1Airway type: laryngeal maskSize: | | 5Tube secured with: adhesive tapeTrauma: noneTube placement verification: carbon | | dioxide detectionPerforming provider: ABEBA HANElectronically Signed by: DO Jenny Recio date/time: 12/19/2017 12:18 | |Airway type: laryngeal mask | |Size: 5 | |Tube secured with: adhesive tape | |Trauma: none | |Tube placement verification: carbon dioxide detection | |Performing provider: ABEBA HAN | | | | | |Electronically Signed by: DO Jenny Card date/time: 11/27 12:18 | | | + + Anesthesia Perineural Note (12/19/2017 12:09 PM PDT) + + + | Narrative | Performed At | + + + | Abeba Han DO 12/19/2017 12:10 Perineural Procedure | | | Note 12/19/2017 11:55 LDA Nerve Block Type: IPACK. Laterality: | | | right Continuous block with catheter: No Provider requested | | | procedure: Julius Nowak Indication: postoperative analgesia | | | Preprocedure check: patient identified, procedure and rescue equipment | | | checked, preevaluation including airway assessment complete, | | | risks/benefits discussed, consent obtained, timeout performed, | | | reassessment prior to procedure and monitors applied Patient | | | position: supine Preparation: chlorhexidine/isopropyl alcohol, 1% | | | lidocaine infiltration Introducer used: no Local anesthetic | | | infiltration volume in ml: 2 mL Technique: ultrasound Radiology | | | image stored in patient's chart: ultrasound Needle: echogenic, | | | stimulating, insulated and short-bevel Needle size: 22 g Needle | | | length: 4 in Medication administered through: needle Negative | | | findings: no blood aspirated and no paresthesia Total volume of local | | | anesthetic solution administered: 20 mL Attempts: 1 Ease of | | | procedure: easy Comments: SpO2, NBP monitored during procedure and | | | recorded in anesthesia record. Patient supine with hip abducted and | | | knee flexed. Ultrasound probe used to identify popliteal artery | | | and femoral condyles. Under continuous ultrasound guidance the | | | Stimuplex needle was advanced from medial to lateral between the | | | femoral condyles and the popliteal artery with needle tip visualized | | | throughout. 15ml 0.5% Ropivacaine with 5ml 2% lidocaine was | | | injected in 5 ml increments as the needle was withdrawn, with | | | intermittent negative aspiration and no paresthesias. Ultrasound | | | image placed in chart. Please see anesthesia record or flowsheet | | | for vital sign documentation and see anesthesia record or MAR for | | | all medication documentation. Performing provider: ABEBA HAN | | | SARAVANAN Electronically Signed by: Abeba Han DO | | | ESig date/time: 12/19/2017 12:09 | | + + + + + | Procedure Note | + + | Abeba Han DO - 12/19/2017 12:09 PM PDT Perineural Procedure Note12/19/2017 | | 11:55LDA Nerve Block Type: IPACK.Laterality: rightContinuous block with catheter: | | NoProvider requested procedure: Julius NowakIndication: postoperative | | analgesiaPreprocedure check: patient identified, procedure and rescue equipment checked, | | preevaluation including airway assessment complete, risks/benefits discussed, consent | | obtained, timeout performed, reassessment prior to procedure and monitors appliedPatient | | position: supinePreparation: chlorhexidine/isopropyl alcohol, 1% lidocaine | | infiltrationIntroducer used: noLocal anesthetic infiltration volume in ml: 2 | | mLTechnique: ultrasoundRadiology image stored in patient's chart: ultrasoundNeedle: | | echogenic, stimulating, insulated and short-bevelNeedle size: 22 gNeedle length: 4 | | inMedication administered through: needleNegative findings: no blood aspirated and no | | paresthesiaTotal volume of local anesthetic solution administered: 20 mLAttempts: 1Ease | | of procedure: easyComments: SpO2, NBP monitored during procedure and recorded in | | anesthesia record. Patient supine with hip abducted and knee flexed. Ultrasound probe | | used to identify popliteal artery and femoral condyles. Under continuous ultrasound | | guidance the Stimuplex needle was advanced from medial to lateral between the femoral | | condyles and the popliteal artery with needle tip visualized throughout. 15ml 0.5% | | Ropivacaine with 5ml 2% lidocaine was injected in 5 ml increments as the needle was | | withdrawn, with intermittent negative aspiration and no paresthesias. Ultrasound image | | placed in chart.Please see anesthesia record or flowsheet for vital sign documentation | | and see anesthesia record or MAR for all medication documentation.Performing provider: | | ABEBA HANElectronically Signed by: Abeba Han DO | | ESig date/time: 12/19/2017 12:09 | | | |Comments: SpO2, NBP monitored during procedure and recorded in anesthesia record. Patient s upine with hip abducted and knee flexed. Ultrasound probe used to identify popliteal arter y and femoral condyles. Under | |continuous ultrasound guidance the Stimuplex needle was advanced from medial to lateral bet ween the femoral condyles and the popliteal artery with needle tip visualized throughout. 15ml 0.5% Ropivacaine with 5ml 2% | |lidocaine was injected in 5 ml increments as the needle was withdrawn, with intermittent ne gative aspiration and no paresthesias. Ultrasound image placed in chart. | | | |Please see anesthesia record or flowsheet for vital sign documentation and see anesthesia r ecord or MAR for all medication documentation. | | | | | |Performing provider: ABEBA HAN | | | | | | | |Electronically Signed by: Abeba Han DO ESig date/time: 12/19/2017 12:09 | + + Anesthesia Perineural Note (12/19/2017 12:09 PM PDT) + + + | Narrative | Performed At | + + + | Abeba Han DO 12/19/2017 12:09 Perineural Procedure | | | Note 12/19/2017 11:52 Nerve block: adductor canal-femoral | | | Laterality: right Continuous block with catheter: No Provider | | | requested procedure: Julius Nowak Indication: postoperative | | | analgesia Preprocedure check: patient identified, procedure and | | | rescue equipment checked, preevaluation including airway assessment | | | complete, risks/benefits discussed, consent obtained, timeout | | | performed, reassessment prior to procedure and monitors applied | | | Patient position: supine Preparation: chlorhexidine/isopropyl | | | alcohol, 1% lidocaine infiltration Introducer used: no Local | | | anesthetic infiltration volume in ml: 2 mL Technique: ultrasound | | | Radiology image stored in patient's chart: ultrasound Needle: | | | stimulating Needle size: 22 g Needle length: 4 in Medication | | | administered through: needle Negative findings: no blood aspirated | | | and no paresthesia Total volume of local anesthetic solution | | | administered: 20 mL Attempts: 1 Ease of procedure: easy | | | Comments: SpO2, NBP monitored during procedure and recorded in | | | anesthesia record. Ultrasound used to identify femoral artery and | | | femoral nerve. Femoral artery traced distally to mid thigh. | | | Under continuous ultrasound guidance the Stimuplex needle was | | | advanced to the adductor canal lateral to the femoral artery with | | | needle tip visualized throughout. 15ml 0.5% Ropivacaine with 5ml | | | 2% lidocaine was injected in 5 ml increments within the adductor | | | canal with intermittent negative aspiration and no paresthesias. | | | Ultrasound image placed in chart. Please see anesthesia record | | | or flowsheet for vital sign documentation and see anesthesia record | | | or MAR for all medication documentation. Performing provider: | | | ABEBA HAN Electronically Signed by: Abeba Mercado | | | DO Jenny Han date/time: 12/19/2017 | | | 12:09 | | + + + + + | Procedure Note | + + | Abeba Han DO - 12/19/2017 12:09 PM PDT Perineural Procedure Note12/19/2017 | | 11:52Nerve block: adductor canal-femoralLaterality: rightContinuous block with | | catheter: NoProvider requested procedure: Julius NowakIndication: postoperative | | analgesiaPreprocedure check: patient identified, procedure and rescue equipment checked, | | preevaluation including airway assessment complete, risks/benefits discussed, consent | | obtained, timeout performed, reassessment prior to procedure and monitors appliedPatient | | position: supinePreparation: chlorhexidine/isopropyl alcohol, 1% lidocaine | | infiltrationIntroducer used: noLocal anesthetic infiltration volume in ml: 2 | | mLTechnique: ultrasoundRadiology image stored in patient's chart: ultrasoundNeedle: | | stimulatingNeedle size: 22 gNeedle length: 4 inMedication administered through: | | needleNegative findings: no blood aspirated and no paresthesiaTotal volume of local | | anesthetic solution administered: 20 mLAttempts: 1Ease of procedure: easyComments: SpO2, | | NBP monitored during procedure and recorded in anesthesia record. Ultrasound used to | | identify femoral artery and femoral nerve. Femoral artery traced distally to mid thigh. | | Under continuous ultrasound guidance the Stimuplex needle was advanced to the adductor | | canal lateral to the femoral artery with needle tip visualized throughout. 15ml 0.5% | | Ropivacaine with 5ml 2% lidocaine was injected in 5 ml increments within the adductor | | canal with intermittent negative aspiration and no paresthesias. Ultrasound image placed | | in chart.Please see anesthesia record or flowsheet for vital sign documentation and see | | anesthesia record or MAR for all medication documentation.Performing provider: GUILLE | | ABEBA CARLTONElectronically Signed by: DO Jenny Card | | date/time: 12/19/2017 12:09 | |Ease of procedure: easy | | | |Comments: SpO2, NBP monitored during procedure and recorded in anesthesia record. Ultrasou nd used to identify femoral artery and femoral nerve. Femoral artery traced distally to mid thigh. Under continuous ultrasound | |guidance the Stimuplex needle was advanced to the adductor canal lateral to the femoral art humberto with needle tip visualized throughout. 15ml 0.5% Ropivacaine with 5ml 2% lidocaine was injected in 5 ml increments within | |the adductor canal with intermittent negative aspiration and no paresthesias. Ultrasound im age placed in chart. | | | | | |Please see anesthesia record or flowsheet for vital sign documentation and see anesthesia r ecord or MAR for all medication documentation. | | | | | |Performing provider: ABEBA HAN | | | | | | | |Electronically Signed by: DO Jenny Card date/time: 12/19/2017 12:09 | + + documented in this encounter Visit Diagnoses Not on filedocumented in this encounter Administered Medications + +--------+ +------+------+------+ | Medication Order | MAR | Action | Dose | Rate | Site | | | Action | Date | | | | + +--------+ +------+------+------+ | ceFAZolin (ANCEF, KEFZOL) 100 | Given | 12/20/19 | 2 g | | | | mg/mL IV syringe 2 g 2 g, | | 18 12:16 | | | | | Intravenous, Administer over 30 | | PM PDT | | | | | Minutes, Prior to Incision, | | | | | | | Starting 12/18/17 at 2312, For | | | | | | | 1 dose, Give within one hour | | | | | | | prior to incision., Pre-op, | | | | | | | Indications: Surgical Prophylaxis | | | | | | + +--------+ +------+------+------+ +---+---+ | | | +---+---+ + +-------+ +------+---+---+ | dexamethasone (PF) 10 mg/mL | Given | 12/20/19 | 5 mg | | | | injection Intravenous, PRN, | | 18 12:19 | | | | | Starting 12/19/17 at 1219, | | PM PDT | | | | | Anesthesia Intra-op | | | | | | + +-------+ +------+---+---+ +---+---+ | | | +---+---+ + +-------+ +------+---+---+ | ePHEDrine (AKOVAZ) 50 mg/mL | Given | 12/20/19 | 5 mg | | | | injection PRN, Starting Mon | | 18 1:27 | | | | | 12/19/17 at 1327, Anesthesia | | PM PDT | | | | | Intra-op | | | | | | + +-------+ +------+---+---+ +---+---+ | | | +---+---+ + +-------+ +--------+---+---+ | fentaNYL (PF) injection PRN, | Given | 12/20/19 | 50 mcg | | | | Pain, Starting 12/19/17 at | | 18 12:30 | | | | | 1222, Anesthesia Intra-op | | PM PDT | | | | + +-------+ +--------+---+---+ +-------+ +--------+---+---+ | Given | 12/20/19 | 25 mcg | | | | | 18 12:22 | | | | | | PM PDT | | | | +-------+ +--------+---+---+ +---+---+ | | | +---+---+ + +-------+ +-------+---+---+ | lidocaine (PF) 1% injection | Given | 12/20/19 | 40 mg | | | | Intravenous, PRN, Starting Mon | | 18 12:12 | | | | | 12/19/17 at 1212, Anesthesia | | PM PDT | | | | | Intra-op | | | | | | + +-------+ +-------+---+---+ +---+---+ | | | +---+---+ + +-------+ +-------+---+---+ | lidocaine (PF) 2% injection | Given | 12/20/19 | 5 mLs | | | | PRN, Starting 12/19/17 at | | 18 11:55 | | | | | 1152, Anesthesia Intra-op | | AM PDT | | | | + +-------+ +-------+---+---+ +-------+ +-------+---+---+ | Given | 12/20/19 | 5 mLs | | | | | 18 11:52 | | | | | | AM PDT | | | | +-------+ +-------+---+---+ +---+---+ | | | +---+---+ + +-------+ +--------+---+---+ | propofol (DIPRIVAN) injection | Given | 12/20/19 | 200 mg | | | | PRN, Starting Tue12/19/17 at | | 18 12:12 | | | | | 1212, Anesthesia Intra-op | | PM PDT | | | | + +-------+ +--------+---+---+ +---+---+ | | | +---+---+ + +---------+ + +-------+---+ | propofol (DIPRIVAN) injection | New Bag | 12/20/19 | 25 | 11.8 | | | Intravenous, CONTINUOUS PRN, | | 18 12:14 | mcg/kg/m | mL/hr | | | Starting Tue12/19/17 at 1214, | | PM PDT | in | | | | Anesthesia Intra-op | | | | | | + +---------+ + +-------+---+ +---+---+ | | | +---+---+ + +-------+ +--------+---+---+ | ropivacaine (NAROPIN) 5 mg/mL | Given | 12/20/19 | 15 mLs | | | | (0.5%) injection PERINEURAL, | | 18 11:55 | | | | | PRN, Starting Tue12/19/17 at | | AM PDT | | | | | 1152, Anesthesia Intra-op | | | | | | + +-------+ +--------+---+---+ +-------+ +--------+---+---+ | Given | 12/20/19 | 15 mLs | | | | | 18 11:52 | | | | | | AM PDT | | | | +-------+ +--------+---+---+ +---+---+ | | | +---+---+ + +-------+ + +---+---+ | tranexamic acid (CYKLOKAPRON) | Given | 12/20/19 | 1,000 mg | | | | injection Intravenous, | | 18 1:27 | | | | | Administer over 15 Minutes, PRN, | | PM PDT | | | | | Starting Tue12/19/17 at 1217, | | | | | | | Anesthesia Intra-op | | | | | | + +-------+ + +---+---+ +-------+ + +---+---+ | Given | 12/20/19 | 1,000 mg | | | | | 18 12:17 | | | | | | PM PDT | | | | +-------+ + +---+---+ +---+---+ | | | +---+---+ documented in this encounter"
--- OUTSIDE RECORDS SUMMARY | ~2019-09-03 | XMS | Encounter Summary ---
Demographics + + + | Address | [address] | | | [place] [address] | + + + | Home Phone | | + + + | Preferred Language | Unknown | + + + | Marital Status | Single | + + + | Orthodox Affiliation | 1077 | + + + | Race | Unknown | + + + | Ethnic Group | Unknown | + + + Author + + + | Author | [facility] | | | and [place] | + + + | Organization | [facility] | | | and [...] [place] | | | | | [address] | | + + + + + | Santo Cervantes | ECON | Unknown | | + + + + + Care Team Providers + +------+ + | Care Astronomy Professor Name | Role | Phone | + +------+ + | Shubham Maurer MD | PCP | | + +------+ + Reason for Visit + + + | Reason | Comments | + + + | Follow-up | F/U Xray's | + + + Encounter Details +--------+---------+ + + + | Date | Type | Department | Care Team | Description | +--------+---------+ + + + | 06/15/ | Office | [facility] | Min Tello MD | S/P lumbar fusion | | 2017 | Visit | NEUROSURGERY [address] | [address] | (Primary Dx) | | | | [address] | [place] [address] | | | | | [address] | [phone] | | | | | [address] | | | | | | [phone] | | | +--------+---------+ + + + [...] + + + | Blood Pressure | 93/56 | 06/15/2016 4:11 PM | | | | | PDT | | + + + + + | Pulse | 73 | 06/15/2016 4:11 PM | | | | | PDT [...] + + + + | Weight | 78 kg (172 lb) | 06/15/2016 4:11 PM | | | | | PDT | | + + + + + | Height | 172.7 cm (5' 8") | 06/15/2016 4:11 PM | | | | | PDT | | + + + + + | Body Mass Index | 26.15 | 06/15/2016 4:11 PM | | | | | PDT | | + + + + + documented in this encounter Progress Notes Min Tello MD - 06/15/2016 4:24 PM PDTFormatting of this note might be different from t isabel original. Min Tello MD [address] [facility], [address] [place] [address] FAX: NEUROSURGERY FOLLOW-UP CHIEF COMPLAINT: Chief Complaint Patient presents with Follow-up F/U Xray's HISTORY OF PRESENT ILLNESS: The patient is a 66 y.o. male that had a lumbar fusion around 04/2015. He has been doing better over the last several months and presents reporting that his strength is again improving and his symptoms are decreasing. He continues to exercise a nd gradually increase his activities. He has no new issues or complaints. CURRENT MEDICATIONS: Current Outpatient Prescriptions Medication Sig Dispense Refill diclofenac (VOLTAREN) 75 mg EC tablet Take 75 mg by mouth 2 times daily. mometasone (ELOCON) 0.1 % cream Apply 1 Application topically Daily. [place]-3 Fatty Acids (OMEGA 3 PO) Take 2 capsules by mouth 2 times daily. No current facility-administered medications for this visit. ALLERGIES: No Known Allergies SOCIAL HISTORY: The patient reports that he has never smoked. He has never used smokeless tobacco. He repo rts that he drinks alcohol. He reports that he does not use illicit drugs. INTERIM PHYSICAL EXAMINATION: Blood pressure 93/56, pulse 73, height 1.727 m (5' 8"), weight 78.019 kg (172 lb). Body mas s index is 26.16 kg/(m^2). GENERAL: Raúl Day is in no acute distress with unlabored respirations. SPINE: The patient s incisions are healing well without drainage, significant erythema, o r discharge. EXTREMITIES: No lower extremity edema. NEUROLOGICAL EXAMINATION: MENTAL STATUS: The patient is awake, alert, and oriented. He follows simple and complex commands MOTOR EXAM: Motor strength is 5/5 left dorsiflexion and EHL. 4+/5 dorsiflexion and EHL on right side. SENSORY EXAM: The sensory examination is [...] fusion has increased at each s egment. X-rays today whos increasing bone fromatino at L3-4 and L4-5. ASSESSMENT: Encounter Diagnosis Name Primary? S/P lumbar fusion Yes Past Medical History Diagnosis Date Degenerative disc disease, lumbar Hard of hearing bilateral hearing aids PLAN: The patient is doing better. While his CT is not ideal, I would recommend continued conser vative care. If his symptoms worsen, he may require revision. I would not recommend revision in the absence of severe symptoms. He agreed with this plan of care. He can follow-up on an as needed basis. ELECTRONICALLY SIGNED BY: Min Tello MD, 07/06/2016 10:54 documented in this enc nter Plan of Treatment Not on filedocumented as of this encounter Visit Diagnoses + + | Diagnosis | + + | S/P lumbar fusion - Primary Arthrodesis status | + + documented in this encounter
--- OUTSIDE RECORDS SUMMARY | ~2019-09-03 | XMS | Encounter Summary ---
Demographics + + + | Address | [address] | | | [place] [address] | + + + | Home Phone | | + + + | Preferred Language | Unknown | + + + | Marital Status | Single | + + + | Anglican Affiliation | 1077 | + + + | Race | Unknown | + + + | Ethnic Group | Unknown | + + + Author + + + | Author | [facility] | | | and [place] | + + + | Organization | [facility] | | | and [place] [...] [place] | | | | | [address] | | + + + + + | Santo Cervantes | ECON | Unknown | | + + + + + Care Team Providers + +------+ + | Care Cooker Syrup Name | Role | Phone | + +------+ + | Shubham Maurer MD | PCP | | + +------+ + Encounter Details +--------+ + + + + | Date | Type | Department | Care Team | Description | +--------+ + + + + | 03/26/ | Hospital | [facility] | Min Tello MD | | | 2014 | Encounter | [facility] | [address] | | | | | [address] | [place] [address] | | | | | [address] | [phone] | | | | | [address] | | | | | | [phone] | | | +--------+ + + + [...] Units by | | 0 | | | | (VITAMIN D-3) 1,000 | mouth Daily. | | | | 6 | | units capsule | | | | | | + + + +---------+--------+ + | ZEA-BMF-Msndflv E | Take 2 capsules by | | 0 | | | | (OMEGA-3 COMPLEX PO) | mouth [...] | + + + +---------+--------+ + | [place]-3 Krill Oil | Take 2 capsules by [...] | + + + +---------+--------+ + | EVANMERBRIAN PO | Take by mouth 2 | | 0 | | | | | times daily. | | | | 6 | + + + +---------+--------+ + documented as of this encounter Plan of Treatment Not on filedocumented as of this encounter Visit Diagnoses Not on filedocumented in this encounter"
--- OUTSIDE RECORDS SUMMARY | ~2019-09-03 | XMS | Encounter Summary ---
Demographics + + + | Address | [address] | | | [place] [address] | + + + | Home Phone | | + + + | Preferred Language | Unknown | + + + | Marital Status | Single | + + + | Restorationist Affiliation | 1077 | + + + | Race | Unknown | + + + | Ethnic Group | Unknown | + + + Author + + + | Author | [facility] | | | and [place] | + + + | Organization | [facility] | | | and [place] | + + + | Address | [...] [place] | | | | | [address] | | + + + + + | Santo Cervantes | ECON | Unknown | | + + + + + Care Team Providers + +------+ + | Care Supervisor Plastics Name | Role | Phone | + +------+ + | Shubham Maurer MD | PCP | | + +------+ + Encounter Details +--------+ + + + + | Date | Type | Department | Care Team | Description | +--------+ + + + + | 04/28/ | Orders Only | [facility] | Jovan Alford | Lumbar radiculopathy | | 2016 | | NEUROSURGERY [address] | [address] | (Primary Dx); S/P | | | | [address] | [address] | lumbar fusion | | | | [address] | [place] [address] | | | | | [address] | [phone] | | | | | [phone] | | | +--------+ + + + [...] Not on filedocumented as of this encounter Results XR Lumbar Spine 2 or 3 Vw (06/04/2015 11:24 AM [facility]) + + | Specimen | + + | | + + + + + | Narrative | Performed At | + + + | XR LUMBAR SPINE 2 OR 3 VW 06/04/2015 11:24 AM HISTORY: Postop. | [facility] | | COMPARISON: Multiple priors FINDINGS: There is stable hardware | [facility] | | for posterior fusion from L3 through S1 with spacer hardware at these [facility] | | levels. Moderate spondylosis is observed. Mild retrolisthesis is | - IMAGING | | present of L2 over L3. There is minimal anterolisthesis of L4 over L5. | | | Bone mineralization is normal. Vertebral body height are preserved | | | with no evidence for compression fractures. Moderate disc narrowing | | | is at L1-2. There is mild disc narrowing at L2-3. Vacuum phenomenon | | | are present at these 2 levels. Facet joints are intact. Visualized | | | ribs and pelvic osseous structures show no acute findings. Mild | | | atherosclerosis is seen. Soft tissues are unremarkable. IMPRESSION | | | - Stable posterior fusion from L3 through S1. Dictated and | | | Signed by: Faisal Nguyen MD Electronically signed: 06/04/2015 11:41 | | | AM | | + + + + + | Procedure Note | + + | Reggie Smith Results In - 06/04/2015 11:44 AM PST XR LUMBAR SPINE 2 OR 3 VW 06/04/2015 | | 11:24 AMHISTORY: Postop.COMPARISON: Multiple priorsFINDINGS:There is stable hardware for | | posterior fusion from L3 through S1 with spacerhardware at these levels. Moderate | | spondylosis is observed. Mild retrolisthesisis present of L2 over L3. There is minimal | | anterolisthesis of L4 over L5. Bonemineralization is normal. Vertebral body height are | | preserved with no evidencefor compression fractures. Moderate disc narrowing is at L1-2. | | There is milddisc narrowing at L2-3. Vacuum phenomenon are present at these 2 levels. | | Facetjoints are intact. Visualized ribs and pelvic osseous structures show no | | acutefindings. Mild atherosclerosis is seen. Soft tissues are unremarkable.IMPRESSION | | -Stable posterior fusion from L3 through S1.Dictated and Signed by: Faisal Nguyen MD | | Electronically signed: 06/04/2015 11:41 AM | |for compression fractures. Moderate disc narrowing is at L1-2. There is mild | |disc narrowing at L2-3. Vacuum phenomenon are present at these 2 levels. Facet | |joints are intact. Visualized ribs and pelvic osseous structures show no acute | |findings. Mild atherosclerosis is seen. Soft tissues are unremarkable. | | | |IMPRESSION - | |Stable posterior fusion from L3 through S1. | | | |Dictated and Signed by: Faisal Nguyen MD | | Electronically signed: 06/04/2015 11:41 AM | + + + + + + + | Performing | Address | City[facility]State[facility] | Phone Number | | Organization | | | | + + + + + | [address] | [address] | [place], [place] | [phone] | | [facility] | | [address] | | | - IMAGING | | | | + + + + + documented in this encounter Visit Diagnoses + + | Diagnosis | + + | Lumbar radiculopathy - Primary Thoracic or lumbosacral neuritis or radiculitis, | | unspecified | + + | S/P lumbar fusion Arthrodesis status | + + documented in this encounter"
--- OUTSIDE RECORDS SUMMARY | ~2019-09-03 | XMS | Encounter Summary ---
Demographics + + + | Address | [address] | | | [place] [address] | + + + | Home Phone | | + + + | Preferred Language | Unknown | + + + | Marital Status | Single | + + + | Adventism Affiliation | 1077 | + + + | Race | Unknown | + + + | Ethnic Group | Unknown | + + + Author + + + | Author | [facility] | | | and [place] | + + + | Organization | [facility] | | | and [...] [place] | | | | | [address] | | + + + + + | Santo Cervantes | ECON | Unknown | | + + + + + Care Team Providers + +------+ + | Care Quarry Supervisor Open Pit Name | Role | Phone | + +------+ + | Shubham Maurer MD | PCP | | + +------+ + Encounter Details +--------+ + + + + | Date | Type | Department | Care Team | Description | +--------+ + + + + | 06/15/ | Orders Only | [facility] | Min Tello MD | Status post lumbar | | 2017 | | NEUROSURGERY [address] | [address] | spinal fusion | | | | [address] | [place] [address] | (Primary Dx) | | | | [address] | [phone] | | | | | [address] | | | | | | [phone] | | | +--------+ + + + [...] XR Lumbar Spine 2 or 3 Vw (06/15/2016 2:57 PM PDT) + + | Specimen | + + | | + + + + + | Narrative | Performed At | + + + | EXAM:XR LUMBAR SPINE 2 OR 3 VW CLINICAL HISTORY: post lumbar | [facility] | | fusion COMPARISON: CT dated December 15, 2015. Radiographs | [facility] | | dated October 20, 2015. FINDINGS: Frontal and lateral views of the | [facility] | | lumbar spine. Posterior and interbody fusion changes from L3 | - IMAGING | | through S1. Intact hardware. No change in position of the | | | interbody graft markers. No change in spinal alignment. No solid | | | osseous fusion across L3-L4. No definite solid osseous fusion at | | | L4-L5 or L5-S1. No interval compression deformities. The soft | | | tissues are unremarkable. IMPRESSION - No solid osseous fusion | | | across L3-L4. Uncertain fusion status across L4-L5 and L5-S1. | | | Dictated and Signed by: Jeronimo Marr MD Electronically signed: | | | 06/15/2016 4:22 PM | | + + + + + | Procedure Note | + + | Luis, Rad Results In - 06/15/2016 4:25 PM PDT EXAM:XR LUMBAR SPINE 2 OR 3 VW | | | | CLINICAL HISTORY: post lumbar fusion | | | | COMPARISON: CT dated December 15, 2015. Radiographs dated October 20, 2015. | | | | FINDINGS: Frontal and lateral views of the lumbar spine. Posterior and | | interbody fusion changes from L3 through S1. Intact hardware. No change in | | position of the interbody graft markers. No change in spinal alignment. No | | solid osseous fusion across L3-L4. No definite solid osseous fusion at L4-L5 or | | L5-S1. No interval compression deformities. The soft tissues are unremarkable. | | | | IMPRESSION - | | | | No solid osseous fusion across L3-L4. | | | | Uncertain fusion status across L4-L5 and L5-S1. | | | | Dictated and Signed by: Jeronimo Marr MD | | Electronically signed: 06/15/2016 4:22 PM | + + + + + + + | Performing | Address | City/State/Zipcode | Phone Number | | Organization | | | | + + + + + | [address] | [address] | [place] | [phone] | | [facility] | | [address] | | | - IMAGING | | | | + + + + + documented in this encounter Visit Diagnoses + + | Diagnosis | + + | Status post lumbar spinal fusion - Primary Arthrodesis status | + + documented in this encounter"
--- OUTSIDE RECORDS SUMMARY | ~2019-09-03 | XMS | Encounter Summary ---
Demographics + + + | Address | [address] | | | [place] [address] | + + + | Home Phone | | + + + | Preferred Language | Unknown | + + + | Marital Status | Single | + + + | Buddhist Affiliation | 1077 | + + + | Race | Unknown | + + + | Ethnic Group | Unknown | + + + Author + + + | Author | [facility] | | | and [place] | + + + | Organization | [facility] | | | and [...] [place] | | | | | [address] | | + + + + + | Santo Cervantes | ECON | Unknown | | + + + + + Care Team Providers + +------+ + | Care Physician Chief Of Pathology Name | Role | Phone | + +------+ + | Shubham Maurer MD | PCP | | + +------+ + Encounter Details +--------+ + + + + | Date | Type | Department | Care Team | Description | +--------+ + + + + | 10/09/ | Orders Only | [facility] | Jovan Alford | Lumbar | | 2016 | | NEUROSURGERY [address] | [address] | radiculopathy; | | | | [address] | [address] | Spinal stenosis, | | | | [place], [place] | [place] [address] | lumbar; DDD | | | | [address] | [phone] | (degenerative disc | | | | [phone] | | disease), lumbar | +--------+ + + + + Social [...] or radiculitis, unspecified | + + | Spinal stenosis, lumbar Spinal stenosis, lumbar region, without neurogenic | | claudication | + + | DDD (degenerative disc disease), lumbar Degeneration of lumbar or lumbosacral | | intervertebral disc | + + documented in this encounter"
--- OUTSIDE RECORDS SUMMARY | ~2019-09-03 | XMS | Encounter Summary ---
Demographics + + + | Address | [address] | | | [place] [address] | + + + | Home Phone | | + + + | Preferred Language | Unknown | + + + | Marital Status | Single | + + + | Temple Affiliation | 1077 | + + + | Race | Unknown | + + + | Ethnic Group | Unknown | + + + Author + + + | Author | [facility] | | | and [place] | + + + | Organization | [facility] | | | and [place] [...] [place] | | | | | [address] | | + + + + + | Santo Cervantes | ECON | Unknown | | + + + + + Care Team Providers + +------+ + | Care Audit Associate Name | Role | Phone | + +------+ + | Shubham Maurer MD | PCP | | + +------+ + Reason for Visit + + + | Reason | Comments | + + + | Home Health | Request | + + + Encounter Details +--------+ + + + + | Date | Type | Department | Care Team | Description | +--------+ + + + + | 04/08/ | Telephone | [facility] [place] | Min Tello MD | Home Health (Request | | 2016 | | NEUR[address]UR[address]ERY [address] | [address] | ) | | | | [address] | [place] [address] | | | | | [address] | [phone] | | | | | [address] | | | | | | [phone] | | | +--------+ + + + [...]
--- OUTSIDE RECORDS SUMMARY | ~2019-09-03 | XMS | Encounter Summary ---
Demographics + + + | Address | [address] | | | [place] [address] | + + + | Home Phone | | + + + | Preferred Language | Unknown | + + + | Marital Status | Single | + + + | Latter Day Affiliation | 1077 | + + + | Race | Unknown | + + + | Ethnic Group | Unknown | + + + Author + + + | Author | [facility] | | | and [place] | + + + | Organization | [facility] | | | and [...] [place] | | | | | [address] | | + + + + + | Santo Cervantes | ECON | Unknown | | + + + + + Care Team Providers + +------+ + | Care Coding And Reimbursement Specialist Name | Role | Phone | + +------+ + | Shubham Maurer MD | PCP | | + +------+ + Reason for Visit + + + | Reason | Comments | + + + | Results, Imaging | | + + + Encounter Details +--------+ + + + + | Date | Type | Department | Care Team | Description | +--------+ + + + + | 03/05/ | Telephone | [facility] [place] | Min Tello MD | Results, Imaging | | 2015 | | NEUROSUR[address]ERY [address] | [address] | | | | | [address] | [place] [address] | | | | | [address] | [phone] | | | | | [address] | | | | | | [phone] | | | +--------+ + + + [...]
--- OUTSIDE RECORDS SUMMARY | ~2019-09-03 | XMS | Encounter Summary ---
Demographics + + + | Address | [address] | | | [place] [address] | + + + | Home Phone | | + + + | Preferred Language | Unknown | + + + | Marital Status | Single | + + + | Protestant Affiliation | 1077 | + + + | Race | Unknown | + + + | Ethnic Group | Unknown | + + + Author + + + | Author | [facility] | | | and [place] | + + + | Organization | [facility] | | | and [...] [place] | | | | | [address] | | + + + + + | Santo Cervantes | ECON | Unknown | | + + + + + Care Team Providers + +------+ + | Care Strategic Accounts Manager Name | Role | Phone | [...] Radiology | Diagnoses | Min Tello | [facility] | | | | | Neck pain, | [address] | [address] | | | | | acute Left | [address] | [place], | | | | | arm pain | [place], | [place] | | | | | Left arm | [place] [address] | [address] | | | | | numbness | Phone: | Phone: | | | | | Other | [phone] | [phone] | | | | | osteoarthrit | Fax: | Fax: | | | | | is of spine, | [phone] | [phone] | | | | | cervical | | | | | | | region | | | | | | | Procedures | | | | | | | MRI Cervical | | | | | | | Spine wo | | | | | | | Contrast | | | +--------+--------+ + + + + Reason for Visit Diagnostic/Screening (Urgent) +--------+--------+ + + + + | Status | Reason | Specialty | Diagnoses / | Referred By | Referred To | | | | | Procedures | Contact | Contact | +--------+--------+ + + + + | Closed | | Radiology | Diagnoses | Min Tello | [facility] | | | | | Neck pain, | [address] | [address] | | | | | acute Left | [address] | [place], | | | | | arm pain | [place], | [place] | | | | | Left arm | [place] [address] | [address] | | | | | numbness | Phone: | Phone: | | | | | Other | [phone] | [phone] | | | | | osteoarthrit | Fax: | Fax: | | | | | is of spine, | [phone] | [phone] | | | | | cervical | [...] | +--------+ + + + + | 02/28/ | Hospital | [facility] | Min Tello MD | Neck pain, acute; | | 2014 | Encounter | MED CTR MRI [address] | [address] | Left arm pain; Left | | | | [address] [place], | [place] [address] | arm numbness; Other | | | | [place] [address] | [phone] | osteoarthritis of | | | | [phone] | | spine, cervical | | | [...] | + + + +---------+--------+ + | MSN-RZC-Louwdfo E | Take 2 capsules by | [...] | + + + +---------+--------+ + | Wilmer-3 Krill Oil | Take 2 capsules by [...] | + +--------+ + + + | MRI CERVICAL SPINE | Routin | 02/28/2015 | Neck pain, acute | Results for this | | WO CONTRAST | e | 3:46 PM | Left arm pain Left | procedure are in the | | | | PST | arm numbness Other | results section. | | | | | osteoarthritis of | | | | | | spine, cervical | | | | | | region | | + +--------+ + + + documented in this encounter Results MRI Cervical Spine wo Contrast (02/28/2015 3:46 PM PST) + + | Specimen | + + | | + + + + + | Narrative | Performed At | + + + | EXAM: MRI CERVICAL SPINE WO CONTRAST dated 02/28/2015 2:02 PM. | [facility] | | HISTORY: neck and left arm symptoms COMPARISON: None. | [facility] | | TECHNIQUE: Multiplanar multisequence MR imaging of the cervical spine | [facility] | | without contrast. This is performed [...] ST. | [address] | [place], [place] | [phone] | | [facility] | | [address] | | | - IMAGING | | [...]
--- OUTSIDE RECORDS SUMMARY | ~2019-09-03 | XMS | Encounter Summary ---
Demographics + + + | Address | [address] | | | [place] [address] | + + + | Home Phone | | + + + | Preferred Language | Unknown | + + + | Marital Status | Single | + + + | Denominational Affiliation | 1077 | + + + | Race | Unknown | + + + | Ethnic Group | Unknown | + + + Author + + + | Author | [facility] | | | and [place] | + + + | Organization | [facility] | | | and [...] [place] | | | | | [address] | | + + + + + | Santo Cervantes | ECON | Unknown | | + + + + + Care Team Providers + +------+ + | Care Dcs Engineer Name | Role | Phone | + +------+ + | Shubham Maurer MD | PCP | | + +------+ + Reason for Visit + + + | Reason | Comments | + + + | Post-op Question | | + + + Encounter Details +--------+ + + + + | Date | Type | Department | Care Team | Description | +--------+ + + + + | 08/17/ | Telephone | [facility] [place] | Min Tello MD | Post-op Question | | 2017 | | NEUROSURGERY [address] | [address] | | | | | [address] | [place] [address] | | | | | [address] | [phone] | | | | | [address] | | | | | | [phone] | | | +--------+ + + + [...]
--- OUTSIDE RECORDS SUMMARY | ~2019-09-03 | XMS | Encounter Summary ---
Demographics + + + | Address | [address] | | | [place] [address] | + + + | Home Phone [...] + + + | Author | [facility] | | | and [place] | + + + | Organization | [facility] | | | and [place] [...] + | Yung Vivar | ECON | [place] | | | | | [address] | | + + + + + | Santo Cervantes | ECON | Unknown | | + + + + + Care Team Providers + +------+ + | Care Tunnel Drier Operator Name | Role | Phone | [...] + + | 01/24/ | Office | [facility] | Damian Escobedo | Status post right | | 2018 | Visit | ORTHOPEDIC SURGERY | [address] | knee replacement | | | | [address] | [address] [place] | (Primary Dx) | | | | [place], [place] | [place] [address] | | | | | [address] | [phone] | | | | | [phone] | | | +--------+---------+ + + + [...] differe nt from the original. Name:Raúl Day Todays Date: 01/25/2018 Age: 67 y.o. PCP: Shubham Maurer MD Chief Complaint Patient presents with Post Op right total knee arthroplasty DOS 12/19/17 SUBJECTIVE: Second postoperative visit for right total knee arthroplasty performed on 12/19/17. Continu es outpatient physical therapy and Agustina. Physical range of motion is improving. Only [...] 7:24 This note was dictated using the Outsell voice recognition system. Minor errors in grammar may have occurred. documented in t his encounter Plan of Treatment Not on filedocumented as of this encounter Visit Diagnoses + + | Diagnosis | + + | Status post right knee replacement - Primary | + + documented in this encounter
--- OUTSIDE RECORDS SUMMARY | ~2019-09-03 | XMS | Encounter Summary ---
Demographics + + + | Address | [address] | | | [place] [address] | + + + | Home Phone | | + + + | Preferred Language | Unknown | + + + | Marital Status | Single | + + + | Congregational Affiliation | 1077 | + + + | Race | Unknown | + + + | Ethnic Group | Unknown | + + + Author + + + | Author | [facility] | | | and [place] | + + + | Organization | [facility] | | | and [place] | [...] [place] | | | | | [address] | | + + + + + | Santo Cervantes | ECON | Unknown | | + + + + + Care Team Providers + +------+ + | Care Log Raft Worker Name | Role | Phone | + [...] | | [address] | [place] [address] | | | | | [place] | [phone] | | | | | [address] | | | | | | [phone] | | | +--------+ + + + [...]
--- OUTSIDE RECORDS SUMMARY | ~2019-09-03 | XMS | Encounter Summary ---
Demographics + + + | Address | [address] | | | [place] [address] | + + + | Home Phone | | + + + | Preferred Language | Unknown | + + + | Marital Status | Single | + + + | Yazidism Affiliation | 1077 | + + + | Race | Unknown | + + + | Ethnic Group | Unknown | + + + Author + + + | Author | [facility] | | | and [place] | + + + | Organization | [facility] | | | and [place] [...] [place] | | | | | [address] | | + + + + + | Santo Cervantes | ECON | Unknown | | + + + + + Care Team Providers + +------+ + | Care Aircraft Avionics Technician Name | Role | Phone | + +------+ + | Atul Adkins MD | PCP | | + +------+ + Reason for Visit + + + | Reason | Comments | + + + | New Patient | Back pain | + + + Evaluate & Treat (Routine) +--------+--------+ + + + + | Status | Reason | Specialty | Diagnoses / | Referred By | Referred To | | | | | Procedures | Contact | Contact | +--------+--------+ + + + + | Closed | | Neurosurgery | Diagnoses | Luc[place], | Min Tello | | | | | Lumbar pain | Atul Mandujano MD [address] | | | | | Procedures | MD [address] | [address] [address] | | | | | [place] OFFICE | [address] | [place], [place] | | | | | CONSULTATION | [address] | [address] | | | | | NEW/ESTAB | [place], | Phone: | | | | | PATIENT [address] | [place] | [phone] | | | | | MIN | [address] | Fax: | | | | | | Phone: | [phone] | | | | | | [phone] | | | | | | | Fax: | | | | | | | [phone] | | +--------+--------+ + + + + Encounter Details +--------+---------+ + + + | Date | Type | Department | Care Team | Description | +--------+---------+ + + + | 11/29/ | Office | [facility] | Min Tello MD | Bilateral low back | | 2015 | Visit | NEUROSURGERY [address] | [address] | pain, with sciatica | | | | [address] | [place] [address] | presence unspecified | | | | [place] | [phone] | (Primary Dx); | | | | [address] | | Lumbar scoliosis; | | | | [phone] | | Degenerative disc | | | | | | disease, lumbar; | | | | | | Facet arthropathy, | | | | | | lumbar; Lumbar | | | | | | radiculopathy; | | | | | | Lumbar [...] + + + | Blood Pressure | 110/70 | 11/29/2014 12:12 PM | | | | | PDT | | + + + + + | Pulse | 60 | 11/29/2014 12:12 PM | | | | | PDT | | + + + + + | Temperature | - | - | | + + + + + | Respiratory Rate | 20 | 11/29/2014 12:12 PM | | | | | PDT | | + + + + + | Oxygen Saturation | - | - | | + + + + + | Inhaled Oxygen | - | - | | | Concentration | | | | + + + + + | Weight | 78 kg (172 lb) | 11/29/2014 12:12 PM | | | | | PDT | | + + + + + | Height | 172.7 cm (5' 8") | 11/29/2014 12:12 PM | | | | | PDT | | + + + + + | Body Mass Index | 26.15 | 11/29/2014 12:12 PM | | | | | PDT | | + + + + + documented in this encounter Patient Instructions Patient Instructions Min Tello MD - 11/29/2014 1:27 PM PDTA spine class is usually neida ilable sometime before your surgery. These classes are very useful in preparing for spinal surgery. I would encourage you to attend one. After surgery, it is critical that you do not start or resume smoking and also that you kaye id taking any and all anti-inflammatory medications like ibuprofen, Motrin, naproxen, Aleve, Celebrex, diclofenac, Mobic, meloxicam, and many others. The bone is much less likely to h eal if you do not avoid these. It is usually best not to take these or smoke for 6 months. You can research this procedure more at: http://www.nuvasive.com/patient-solutions/ Choose your Diagnosis first and then choose XLIF and TLIF under the [facility] [facility] link. documented in this encounter Progress Notes Min Tello MD - 11/29/2014 12:21 PM PDTFormatting of this note might be different from t he original. Min Tello MD [address] [place] [address], [address] [place], [place] [address] FAX: NEUROSURGERY HISTORY AND PHYSICAL EXAMINATION CHIEF COMPLAINT: Chief Complaint Patient presents with New Patient Back pain HISTORY OF PRESENT ILLNESS: The patient is a 64 y.o. male with the complaint of back and l eg pain symptoms that began years prior. In January 2014, things got very severe. He has had severe back and leg pain. The patient describes severe pain down the right leg to the r ight foot. His right leg is weak. His pain is very intense if he over does things now. He has 6-9/10 pain. The symptoms have been stable but remain unimproved. He rates the pain as severe. The [...] and NSAIDS. He is taking pain medication. PAST MEDICAL HISTORY: Past Medical History Diagnosis Date Hernia cerebri (HCC) Degenerative disc disease, lumbar PAST SURGICAL HISTORY: Past Surgical History Procedure Laterality Date Hernia repair Right 1979 El Vasectomy 1982 CURRENT MEDICATIONS: Current Outpatient Prescriptions Medication Sig Dispense Refill cholecalciferol (VITAMIN D-3) 1,000 units capsule Take 1,000 Units by mouth Daily. FUY-ATX-Zwofsxw E (OMEGA-3 COMPLEX PO) Take 2 capsules by mouth Daily. diclofenac (VOLTAREN) 75 mg EC tablet Take 75 mg by mouth 2 times daily. FERROUS SULFATE PO Take by mouth Daily. [place]-3 Krill Oil 500 MG CAPS Take 1 [...] no rheumatoid arthritis. PHYSICAL EXAMINATION: Blood pressure 110/70, pulse 60, resp. rate 20, height 1.727 m (5' 8"), weight 78.019 kg (1 72 lb). Body mass index is 26.16 kg/(m^2). GENERAL: Raúl Day is in no acute distress with unlabored respirations. The patient does appear uncomfortable throughout the exam today. [...] has no apparent deficits with short or snf memory. CRANIAL NERVES: II: Acuity is intact. [...] Intrinsics 5 5 Ulnar Intrinsics 5 5 Fund Director Strength 5 5 Hip Flexion 5 5 [...] have rightward disc collap se with leftward scoliosis ASSESSMENT: NEUROSURGICAL DIAGNOSES: Encounter Diagnoses Name Primary? Bilateral low back pain, with sciatica presence unspecified Yes Lumbar scoliosis Degenerative disc disease, lumbar Facet arthropathy, lumbar Lumbar radiculopathy Lumbar spinal stenosis Foraminal stenosis of lumbar region GENERAL DIAGNOSES: Past Medical History Diagnosis Date Hernia cerebri (HCC) Degenerative disc disease, lumbar PLAN: Raúl Day presented today, and it was a pleasure seeing this patient and assessing h is problems. The patient has radiculopathy and stenosis symptoms with severe degenerative c hanges from L1-S1. I had a lengthy discussion with the patient about his options for care including surgical a nd non-surgical options. I recommended he obtain imaging of his lumbar spine with x-rays an d scoliosis series so that I could plan options for him. We did discuss techniques and options for a multilevel fusion. We discussed the risks, alternatives, and benefits [...] improve the probability and rate of fusion. I will await the x-rays and contact the patient with a presentation of his options. ELECTRONICALLY SIGNED BY: Min Tello MD, 11/29/2014 13:38 documented in this encou nter Plan of Treatment + +---------+--------+ + + | Name | Type | Priori | Associated Diagnoses | Order Schedule | | | | ty | | | + +---------+--------+ + + | XR Lumbar Spine 4 + | Imaging | Routin | Bilateral low back | Expected: | | Vw | | e | pain, with sciatica | 11/29/2014, Expires: | | | | | presence | 11/30/2015 | | | | | unspecified | | + +---------+--------+ + + documented as of this encounter Visit Diagnoses + + | Diagnosis | + + | Bilateral low back pain, with sciatica presence unspecified - Primary | + + | Lumbar scoliosis Scoliosis (and kyphoscoliosis), idiopathic | + + | Degenerative disc disease, lumbar Degeneration of lumbar or lumbosacral | | intervertebral disc | + + | Facet arthropathy, lumbar Lumbosacral spondylosis without myelopathy | + + | Lumbar radiculopathy Thoracic or lumbosacral neuritis or radiculitis, unspecified | + + | Lumbar spinal stenosis Spinal stenosis, lumbar region, without neurogenic | | claudication | + + | Foraminal stenosis of lumbar region Spinal stenosis, lumbar region, without | | neurogenic claudication | + + documented in this encounter
--- OUTSIDE RECORDS SUMMARY | ~2019-09-03 | XMS | Encounter Summary ---
Demographics + + + | Address | [address] | | | [place] [address] | + + + | Home Phone | | + + + | Preferred Language | Unknown | + + + | Marital Status | Single | + + + | Alevism Affiliation | 1077 | + + + | Race | Unknown | + + + | Ethnic Group | Unknown | + + + Author + + + | Author | [facility] | | | and [place] | + + + | Organization | [facility] | | | and [place] [...] [place] | | | | | [address] | | + + + + + | Santo Cervantes | ECON | Unknown | | + + + + + Care Team Providers + +------+ + | Care Batch And Furnace Operator Name | Role | Phone | + +------+ + | Shubham Maurer MD | PCP | | + +------+ + Encounter Details +--------+ + + + + | Date | Type | Department | Care Team | Description | +--------+ + + + + | 11/11/ | Orders Only | [facility] | Julius Nowak | Primary | | 2018 | | ORTHOPEDIC SURGERY | MD Liliana [address] [facility] | osteoarthritis of | | | | [address] [facility] | [place] | both knees (Primary | | | | [place] | [address] | Dx); Pain in both | | | | [address] | | knees, unspecified | | | | [phone] | | chronicity | +--------+ + + [...] | + + | Primary osteoarthritis of both knees - Primary Primary localized osteoarthrosis, | | lower leg | + + | Pain in both knees, unspecified chronicity | + + documented in this encounter"
--- OUTSIDE RECORDS SUMMARY | ~2019-09-03 | XMS | Encounter Summary ---
Demographics + + + | Address | [address] | | | [place] [address] | + + + | Home Phone | | + + + | Preferred Language | Unknown | + + + | Marital Status | Single | + + + | Episcopal Affiliation | 1077 | + + + | Race | Unknown | + + + | Ethnic Group | Unknown | + + + Author + + + | Author | [facility] | | | and [place] | + + + | Organization | [facility] | | | and [...] [place] | | | | | [address] | | + + + + + | [place] | ECON | Unknown | | + + + + + Care Team Providers + +------+ + | Care Aircraft Engine Mechanic Name | Role | Phone | [...] + + + | Closed | | | Diagnoses | | Min Tello | | | | | Scoliosis | | MD Nazia [address] | | | | | of lumbar | | [address] | | | | | spine, | | [place], [place] | | | | | unspecified | | [address] | | | | | scoliosis | | Phone: | | | | | Scoliosis of | | [phone] | | | | | lumbar | | Fax: | | | | | spine, | | [phone] | | | | | unspecified | | | | | | | scoliosis | | | | | | | [M41.9] | | | | | | | Procedures | | | | | | | [place] | | | | | | | ARTHRODESIS | | | | | | | POSTERIOR/PO | | | | | | | STEROLATERAL | | | | | | | LUMBAR | | | +--------+--------+ + + + + Encounter Details +--------+ + + + + | Date | Type | Department | Care Team | Description | +--------+ + + + + | 05/05/ | Anesthesia | [facility] | Anand Reeves | | | 2016 | Event | [facility] | MD Lyn [address] | | | | | [address] | [address] [place] | | | | | [place] | [address] | | | | | [address] | | | | | | [phone] | Nolberto Villavicencio MD | | | | | | [address] | | | | | | [place] | | | | | | [address] | | | | | | | | +--------+ + + + + Anesthesia Record + + + + + | Procedure Name | Responsible | Anesthesia Start | Anesthesia Stop Time | | | Anesthesiologist | Time | | + + + + + | L3-4, L4-5 Lateral | Anand Lyn Reeves, | 05/05/15 1529 | 05/05/152046 | | Anterior Interbody | MD | | | | Fusion, L5-S1 | | | | | Transforaminal | | | | | Lumbar Interbody | | | | | Fusion, Laminectomy | | | | | @ L3-4, L4-5, L5-S1 | | | | | (Bilateral Spine | | | | | Lumbar) | | | | + + + + + +----+---+ + + | Da | T | Event | Comment | | te | i | | | | | m | | | | | e | | | +----+---+ + + | 02 | 1 | | | | /0 | 5 | | | | 8/ | 0 | | | | 20 | 6 | | | | 16 | | | | +----+---+ + + | | 1 | An Checkout | Pre-use anesthesia machine/equipment checkout. | | | 5 | | | | | 0 | | | | | 9 | | | +----+---+ + + | | 1 | An Start | Reassessment prior to anesthesia induction/procedure. | | | 5 | | | | | 2 | | | | | 9 | | | +----+---+ + + | | 1 | Antibiotic | | | | 5 | Given | | | | 2 | | | | | 9 | | | +----+---+ + + | | 1 | Preoxygenat | | | | 5 | ed | | | | 3 | | | | | 5 | | | +----+---+ + + | | 1 | An | | | | 5 | Induction | | | | 3 | | | | | 6 | | | +----+---+ + + | | 1 | An | Reasonable mask with OPA; difficult seal with chisholm stubble | | | 5 | Intubation | however. Limited mouth opening; unable to achieve a good view | | | 3 | | with Mac 3 without risking cranking on teeth, so changed to | | | 8 | | Olson 3 following re-masking. Easily intubated with unassisted | | | | | Olson 3 attempt. | +----+---+ + + | | 1 | Quick Note | Nosebleed noted from initial nasopharyngeal temperature probe | | | 5 | | placement (R nare). 4x4 gauze packed into nose after temp probe | | | 4 | | pulled. Temp probe placed atraumatically in L nare. | | | 9 | | | +----+---+ + + | | 1 | Lillie | | | | 5 | 43-degrees | | | | 5 | | | | | 9 | | | +----+---+ + + | | 1 | First | | | | 6 | Inc/Proc St | | | | 0 | | | | | 1 | | | +----+---+ + + | | 1 | Lillie off | | | | 6 | | | | | 5 | | | | | 7 | | | +----+---+ + + | | 1 | Lillie | | | | 7 | 38-degrees | | | | 1 | | | | | 1 | | | +----+---+ + + | | 2 | Lillie off | | | | 0 | | | | | 3 | | | | | 4 | | | +----+---+ + + | | 2 | Breathing | | | | 0 | Spontaneous | | | | 3 | ly | | | | 4 | | | +----+---+ + + | | 2 | Oropharynx | | | | 0 | Suctioned | | | | 3 | | | | | 4 | | | +----+---+ + + | | 2 | An Stop | Patient handed off to recovery nurse. | | | 4 | | | | | 7 | | | +----+---+ + + +------+ | Meds | +------+ + + + | Name | Total | + + + | midazolam | 2 mg | + + + | fentaNYL | 200 mcg | + + + | lidocaine 2% (PF) | 80 mg | + + + | propofol | 200 mg | + + + | succinylcholine | 80 mg | + + + | ketamine | 125 mg | + + + | dexamethasone | 10 mg | + + + | ondansetron | 4 mg | + + + | dexmedetomidine (Bolus) | 80 mcg | + + + | HYDROmorphone | 2 mg | + + + | phenylephrine | 550 mcg | + + + | ePHEDrine | 45 mg | + + + | glycopyrrolate | 0.2 mg | + + + | ceFAZolin in dextrose (ANCEF) | 2 g | | IVPB 2 g | | + + + | magnesium sulfate | 2 g | + + + | lactated ringers (LR) infusion | 2,800 mL | + + + + + | Name | + + | N2O Flow Rate (L/Min) | + + | O2 Flow Rate (L/Min) | + + | Insp O2 | + + | Exp SEV | + + | Exp PIERRE | + + | Air Flow Rate (L/Min) | + + + + | No blood administrations on file. | + + +--------+ + + + | Type | Details | Placement | Removal | +--------+ + + + | Periph | 05/05/15; 1412; [id number] | 05/05/15 1412 by | 05/08/15 1036 by | | eral | catheter system; 20 gauge, 1 in | Nayana Salcedo RN | Katie Callahan | | IV | length; distraction; short term | | ROZ Delgado | | | use; 05/08/15; 1036 | | | +--------+ + + + | Airway | Placement Date: 05/05/15; | 05/05/151537 by | 05/05/152053 by | | | Placement Time: 1537; Mask | Nolberto Villavicencio MD | Doni Leyva RN | | | Ventilation: EZ w/OA; Airway | | | | | Grade: III (Modified Grade 1 w/ | | | | | Olson 3); Successful Technique: | | | | | video scope (Olson 3); | | | | | Laryngoscope Blade Size: 3; | | | | | Attempts: 2; Airway Type: | | | | | endotracheal, cuffed; Size: 6.5; | | | | | Airway Tube Secured At: 24; Tube | | | | | Reference Point: lip; Trauma: | | | | | none; Other Equipment: stylette; | | | | | Placement Check: exhaled CO2 | | | | | detection device; Removal: per | | | | | protocol, removed by RN; Removal | | | | | Date: 05/05/15; Removal Time: | | | | | 2053 | | | +--------+ + + + | Read | 05/05/15; 1614; Bilateral; back; | 05/05/151613 by | 05/08/15 104 by | | only - | healing within expectations; | Cathy Aquino RN | Katie E | | | 05/08/15; 1044 | | ROZ Delgado | | Incisi | | | | | on | | | | +--------+ + + + | Read | 05/05/15; 1614; Left; flank; | 05/05/151613 by | 05/08/15 1044 by | | only - | healing within expectations; | Cathy Aquino RN | Katie E | | | 02/11/16; 1044 | | ROZ Delgado | | Incisi | | | | | on | | | | +--------+ + + + | Urethr | 05/05/15; 1751; indicated due to | 05/05/151751 by | 05/06/15 09 by | | al | specific surgical procedure; | Cathy Aquino RN | Ying Ramirez RN | | Cathet | indwelling double lumen catheter; | | | | er | 14; 1; 10; 10; none; urethral | | | | | catheter removed; 05/06/15; 899 | | | +--------+ + + + | Drain/ | 05/05/15; 1999; #1; Left; lumbar | 05/05/151999 by | 05/08/15 1037 by | | Device | spine; collapsible closed device; | Wilberto Davis RN | Katie E | | Site | 10f nathan drain; short term use; | | ROZ Delgado | | | 05/08/15; 1037 | | | +--------+ + + + | Drain/ | 05/05/15; 1999; #2; Right; lumbar | 05/05/151999 by | 05/08/15 1037 by | | Device | spine; collapsible closed | Wilberto Davis RN | Katie E | | Site | device; 10f nathan drain; short | | ROZ Delgado | | | term use; 05/08/15; 1037 | | | +--------+ + + + [...] | | + +--------+ +------+------+------+ | ceFAZolin in dextrose (ANCEF) | Given | 05/05/19 | 2 g | | | | IVPB 2 g 2 g, Intravenous, | | 16 3:29 | | | | | Administer over 30 Minutes, Prior | | PM PST | | | | | to Incision, Starting 05/05/15 | | | | | | | at 1316, For 1 dose, Administer | | | | | | | within 1 hour of surgical | | | | | | | incision., Pre-op | | | | | | + +--------+ +------+------+------+ +---+---+ | | | +---+---+ + +-------+ +-------+---+---+ | dexamethasone (DECADRON) 10 | Given | 05/05/19 | 10 mg | | | | mg/mL injection Intravenous, | | 16 3:47 | | | | | PRN, Starting 05/05/15 at 1547, | | PM PST | | | | | Anesthesia Intra-op | | | | | | + +-------+ +-------+---+---+ +---+---+ | | | +---+---+ + +-------+ +--------+---+---+ | dexmedetomidine (PRECEDEX) in | Given | 05/05/19 | 80 mcg | | | | sodium chloride bolus infusion | | 16 5:12 | | | | | Intravenous, PRN, Starting Mon | | PM PST | | | | | 05/05/15 at 1712, Anesthesia | | | | | | | Intra-op | | | | | | + +-------+ +--------+---+---+ +---+---+ | | | +---+---+ + +-------+ +-------+---+---+ | ePHEDrine 50 mg/mL injection | Given | 05/05/19 | 10 mg | | | | PRN, Starting 05/05/15 at 1553, | | 16 6:21 | | | | | Anesthesia Intra-op | | PM PST | | | | + +-------+ +-------+---+---+ +-------+ +-------+---+---+ | Given | 05/05/19 | 10 mg | | | | | 16 5:02 | | | | | | PM PST | | | | +-------+ +-------+---+---+ | Given | 05/05/19 | 10 mg | | | | | 16 3:57 | | | | | | PM PST | | | | +-------+ +-------+---+---+ +---+---+ | | | +---+---+ + +-------+ +---------+---+---+ | fentaNYL injection PRN, Pain, | Given | 05/05/19 | 100 mcg | | | | Starting Tue05/05/15 at 1529, | | 16 7:27 | | | | | Anesthesia Intra-op | | PM PST | | | | + +-------+ +---------+---+---+ +-------+ +--------+---+---+ | Given | 05/05/19 | 50 mcg | | | | | 16 3:36 | | | | | | PM PST | | | | +-------+ +--------+---+---+ | Given | 05/05/19 | 50 mcg | | | | | 16 3:29 | | | | | | PM PST | | | | +-------+ +--------+---+---+ +---+---+ | | | +---+---+ + +-------+ +--------+---+---+ | glycopyrrolate (JANINE) | Given | 05/05/19 | 0.2 mg | | | | injection Intravenous, PRN, | | 16 3:54 | | | | | Secretions, Starting Tue05/05/15 | | PM PST | | | | | at 1554, Anesthesia Intra-op | | | | | | + +-------+ +--------+---+---+ +---+---+ | | | +---+---+ + +-------+ +--------+---+---+ | HYDROmorphone (DILAUDID) 2 | Given | 05/05/19 | 1.2 mg | | | | mg/mL injection PRN, Pain, | | 16 4:15 | | | | | Starting 05/05/15 at 1601, | | PM PST | | | | | Anesthesia Intra-op | | | | | | + +-------+ +--------+---+---+ +-------+ +--------+---+---+ | Given | 05/05/19 | 0.8 mg | | | | | 16 4:01 | | | | | | PM PST | | | | +-------+ +--------+---+---+ +---+---+ | | | +---+---+ + +-------+ +-------+---+---+ | ketamine 50 mg/mL injection | Given | 05/05/19 | 25 mg | | | | PRN, Starting Tue05/05/15 at 1545, | | 16 4:15 | | | | | Anesthesia Intra-op | | PM PST | | | | + +-------+ +-------+---+---+ +-------+ +-------+---+---+ | Given | 05/05/19 | 25 mg | | | | | 16 4:00 | | | | | | PM PST | | | | +-------+ +-------+---+---+ | Given | 05/05/19 | 75 mg | | | | | 16 3:45 | | | | | | PM PST | | | | +-------+ +-------+---+---+ +---+---+ | | | +---+---+ + +---------+ +---+-------+---+ | lactated ringers (LR) infusion | New Bag | 05/05/19 | | 100 | | | at 100 mL/hr, Intravenous, | | 16 11:29 | | mL/hr | | | CONTINUOUS, Starting 05/05/15 | | PM PST | | | | | at 1345 | | | | | | + +---------+ +---+-------+---+ +---------+ +---+---+---+ | New Bag | 05/05/19 | | | | | | 16 6:15 | | | | | | PM PST | | | | +---------+ +---+---+---+ | New Bag | 05/05/19 | | | | | | 16 4:55 | | | | | | PM PST | | | | +---------+ +---+---+---+ +---+---+ | | | +---+---+ + +-------+ +-------+---+---+ | lidocaine (PF) 2% injection | Given | 05/05/19 | 80 mg | | | | PRN, Starting 05/05/15 at 1536, | | 16 3:36 | | | | | Anesthesia Intra-op | | PM PST | | | | + +-------+ +-------+---+---+ +---+---+ | | | +---+---+ + +-------+ +-----+---+---+ | magnesium sulfate 500 mg/mL | Given | 05/05/19 | 2 g | | | | injection Intravenous, PRN, | | 16 5:12 | | | | | Starting Tue05/05/15 at 1712, | | PM PST | | | | | Anesthesia Intra-op | | | | | | + +-------+ +-----+---+---+ +---+---+ | | | +---+---+ + +-------+ +------+---+---+ | midazolam (VERSED) 1 mg/mL | Given | 05/05/19 | 2 mg | | | | injection Intravenous, PRN, | | 16 3:29 | | | | | Anxiety, Starting Tue05/05/15 at | | PM PST | | | | | 1529, Anesthesia Intra-op | | | | | | + +-------+ +------+---+---+ +---+---+ | | | +---+---+ + +-------+ +------+---+---+ | ondansetron (ZOFRAN) injection | Given | 05/05/19 | 4 mg | | | | PRN, Nausea, Vomiting, Starting | | 16 3:47 | | | | | 05/05/15 at 1547, Anesthesia | | PM PST | | | | | Intra-op | | | | | | + +-------+ +------+---+---+ +---+---+ | | | +---+---+ + +-------+ +---------+---+---+ | phenylephrine (KARINA-SYNEPHRINE) | Given | 05/05/19 | 100 mcg | | | | 10 mg/mL injection Intravenous, | | 16 8:17 | | | | | PRN, Starting 05/05/15 at 1536, | | PM PST | | | | | Anesthesia Intra-op | | | | | | + +-------+ +---------+---+---+ +-------+ +--------+---+---+ | Given | 05/05/19 | 50 mcg | | | | | 16 7:24 | | | | | | PM PST | | | | +-------+ +--------+---+---+ | Given | 05/05/19 | 50 mcg | | | | | 16 7:16 | | | | | | PM PST | | | | +-------+ +--------+---+---+ +---+---+ | | | +---+---+ + +-------+ +-------+---+---+ | propofol (DIPRIVAN) injection | Given | 05/05/19 | 40 mg | | | | PRN, Starting 05/05/15 at 1536, | | 16 5:02 | | | | | Anesthesia Intra-op | | PM PST | | | | + +-------+ +-------+---+---+ +-------+ +--------+---+---+ | Given | 05/05/19 | 160 mg | | | | | 16 3:36 | | | | | | PM PST | | | | +-------+ +--------+---+---+ +---+---+ | | | +---+---+ + +-------+ +-------+---+---+ | succinylcholine (ANECTINE) | Given | 02/08/20 | 80 mg | | | | injection Intravenous, MICHAELN, | | 16 3:36 | | | | | Starting 05/05/15 at 1536, | | PM PST | | | | | Anesthesia Intra-op | | | | | | + +-------+ +-------+---+---+ +---+---+ | | | +---+---+ documented in this encounter"
--- OUTSIDE RECORDS SUMMARY | ~2019-09-03 | XMS | Encounter Summary ---
Demographics + + + | Address | [address] | | | [place] [address] | + + + | Home Phone | | + + + | Preferred Language | Unknown | + + + | Marital Status | Single | + + + | Pentecostalism Affiliation | PRO | + + + | Race | Unknown | + + + | Ethnic Group | Not or | + + + Author + + + | Author | [facility] | + + + | Organization | [facility] | + + + | Address | Unknown | + + + | Phone | Unavailable | + + + Support + + +---------+ + | Name | Relationship | Address | Phone | + + +---------+ + | Ron Day | ECON | Unknown | | + + +---------+ + Care Team Providers + +------+ + | Care Data Warehouse Manager Name | Role | Phone | + +------+ + | Shubham Maurer MD | PCP | | + +------+ + Encounter Details +--------+ + + + + | Date | Type | Department | Care Team | Description | +--------+ + + + + | 01/15/ | [facility]Sc | [facility] | Min Tello MD | | | 2019 | anned | [facility] | [address] | | | | | [address] | [address] | | | | | [address] | [place] [address] | | | | | [place], [place] | [phone] | | | | | [address] | | | | | | [phone] | | | +--------+ + + + [...] Comments | + + +---------+ + | Never | | | | + + +---------+ + + + + + | Alcohol Habits | Answer | Date Recorded | + + + + | How often do you have a drink containing | Never | 01/09/2019 | | alcohol? | | | + + + + | How many drinks containing alcohol do you | Not asked | | | have on a typical day when you are | | | | drinking? | | | + + + + | How often do you have six or more drinks on | Not asked | | | one occasion? | | | + + + + + + + | Sex Assigned [...]
--- OUTSIDE RECORDS SUMMARY | ~2019-09-03 | XMS | Encounter Summary ---
Demographics + + + | Address | [address] | | | [place] [address] | + + + | Home Phone | | + + + | Preferred Language | Unknown | + + + | Marital Status | Single | + + + | Advent Affiliation | 1077 | + + + | Race | Unknown | + + + | Ethnic Group | Unknown | + + + Author + + + | Author | [facility] | | | and [place] | + + + | Organization | [facility] | | | and [place] | + + + | Address | Unknown | + + + | Phone | Unavailable | + + + Support + + + + + | Name | Relationship | Address | Phone | + + + + + | Maryam Day | ECON | Unknown | | + + + + + | Henok Day | ECON | Unknown | | + + + + + | Bruno Day | ECON | Unknown | | + + + + + | Yung [address]ar | ECON | [place] | | | | | [address] | | + + + + + | Santo Cervantes | ECON | Unknown | | + + + + + Care Team Providers + +------+ + | Care Conduit Mechanic Name | Role | Phone | + +------+ + | Shubham Maurer MD | PCP | | + +------+ + Encounter Details +--------+ + + + + | Date | Type | Department | Care Team | Description | +--------+ + + + + | 03/26/ | Preadmit | [facility] | Min Tello MD | Lumbar | | 2015 | Visit | [facility] | [address] | radiculopathy; Other | | | | CLINIC [address] | [place] [address] | secondary | | | | [place] | [phone] | scoliosis, lumbar | | | | [address] | | region; Degenerative | | | | [phone] | | disc disease, | | | | | | lumbar; Facet | | | | | | arthropathy, lumbar; | | | | | | Lumbar [...] | + +--------+ + + + | ECG 12 LEAD | Routin | 03/26/2015 | Lumbar | Results for this | | | e | 12:36 PM | radiculopathy Other | procedure are in [...] | + +--------+ + + + | CULTURE, MRSA | Routin | 03/26/2015 | | Results for this | | | e | 11:40 AM | | procedure are in the | | | | PST | | results section. | + +--------+ + + + | CBC WITH | Routin | 03/26/2015 | Lumbar | Results for this | | DIFFERENTIAL | e | 11:40 AM | radiculopathy Other | procedure are [...] + | BASIC METABOLIC | Routin | 03/26/2015 | Lumbar | Results for this | | PANEL | e | 11:40 AM | radiculopathy Other | procedure are [...] + + documented in this encounter Results ECG 12 lead (03/26/2015 12:36 PM PST) + + + + + + | Component | Value | Ref Range | Performed | Pathologist | | | | | At | Signature | + + + + + + | VENTRICULAR | 61 | BPM | [facility] | | | RATE EKG | | | | | + + + + + + | ATRIAL RATE | 61 | BPM | [facility] | | + + + + + + | P-R | 156 | ms | [facility] | | | INTERVAL | | | | | + + + + + + | QRS | 90 | ms | [facility] | | | DURATION | | | | | + + + + + + | Q-T | 398 | ms | [facility] | | | INTERVAL | | | | | + + + + + + | Q-T | 400 | ms | [facility] | | | INTERVAL | | | | | | (CORRECTED) | | | | | + + + + + + | P WAVE AXIS | 59 | degrees | [facility] | | + + + + + + | QRS AXIS | -17 | degrees | [facility] | | + + + + + + | T AXIS | -7 | degrees | [facility] | | + + + + + + | INTERPRETAT | Normal sinus | | [facility] | | | ION TEXT | rhythmMinimal voltage | | | | | | criteria for LVH, may be | | | | | | normal | | | | | | variantBorderline ECGNo | | | | | | previous ECGs | | | | | | availableConfirmed by | | | | | | MARYAM VILLALPANDO MD ([id number]) | | | | | | on 03/27/2015 7:02:51 AM | | | | | | | | | | + + + + + + + + | Specimen | + + | | + + + + + | Narrative | Performed At | + + + | | | + + + + +---------+ + + | Performing | Address | City/State/Zipcode | Phone Number | | Organization | | | | + +---------+ + + | [facility] | | | | + +---------+ + + CBC with Differential (03/26/2015 11:40 AM PST) + + + + + + | Component | Value | Ref Range | Performed | Pathologist | | | | | At | Signature | + + + + + + | WBC | 6.1 | 4.0 - 11.0 K/uL | [facility] | | | | | | [facility] | [facility] - | | | | | | [facility]ATORY | | + + + + + + | RBC | 5.41 | 4.30 - 5.70 | [facility] | | | | | M/uL | [facility] | | | | | [facility] | | | | | | [facility] - | | | | | | LABORATORY | | + + + + + + | Hemoglobin | 15.2 | 13.5 - 18.0 | [facility] | | | | | g/dL | [facility] | | | | | | [facility] | | | | | | [facility] - | | | | | | LABORATORY | | + + + + + + | Hematocrit | 47.1 | 40.0 - 51.0 % | [facility] | | | | | | [facility] | | [facility] | [facility] | | | | | | [facility] - | | | | | | LABORATORY | | + + + + + + | MCV | 87.1 | 83.0 - 101.0 fL | [facility] | | | | | | [facility] | | | | | | [facility] | | | | | | [facility] - | | | | | | LABORATORY | | + + + + + + | MCH | 28.1 | 28.0 - 35.0 pg | [facility] | | | | | | [facility] | | | | | | [facility] | | | | | | [facility] - | | | | | | LABORATORY | | + + + + + + | MCHC | 32.3 | 32.0 - 36.0 | [facility] | | | | | g/dL | [facility] | | | | | | [facility] | | | | | | [facility] - | | | | | | LABORATORY | | + + + + + + | RDW-CV | 14.9 | <15.0 % | [facility] | | | | | | [facility] | [facility] | [facility] | | | | | | [facility] - | | | | | | LABORATORY | | + + + + + + | Platelet | 273 | 140 - 440 K/uL | [facility] | | | Count | | | [facility] | | | | | | [facility] | | | | | | [facility] - | | | | | | LABORATORY | | + + + + + + | MPV | 9.3 | fL | [facility] | | | | | | [facility] | | | | | | [facility] | | | | | | [facility] - | | | | | | LABORATORY | | + + + + + + | % | 75.2 | 45.0 - 82.0 % | [facility] | | | Neutrophils | | | [facility] | | | | | | [facility] | | | | | | C[facility] - | | | | | | LABORATORY | | + + + + + + | % | 16.0 (L) | 20.0 - 45.0 % | [facility] | | | Lymphocytes | | | [facility] | | | | | | [facility] | | | | | | C[facility] - | | | | | | LABORATORY | | + + + + + + | % Monocytes | 5.6 | 4.0 - 12.0 % | [facility] | | | | | | [facility] | | | | | | [facility] | | | | | | [facility] - | | | | | | LABORATORY | | + + + + + + | % | 2.4 | 0.0 - 5.0 % | [facility] | | | Eosinophils | | | [facility] | | | | | | [facility] | | | | | | [facility] - | | | | | | LABORATORY | | + + + + + + | % Basophils | 0.8 | 0.0 - 1.0 % | [facility] | | | | | | [facility] | | | | | | [facility] | | | | | | [facility] - | | | | | | LABORATORY | | + + + + + + | Absolute | 4.60 | 1.80 - 8.50 | [facility] | | | Neutrophils | | K/uL | [facility] | | | | | | [facility] | | | | | | [facility] - | | | | | | LABORATORY | | + + + + + + | Absolute | 1.00 | 0.60 - 3.20 | [facility] | | | Lymphocytes | | K/uL | [facility] | | | | | | [facility] | | | | | | [facility] - | | | | | | LABORATORY | | + + + + + + | Absolute | 0.30 | 0.00 - 1.00 | [facility] | | | Monocytes | | K/uL | [facility] | | | | | | [facility] | | | | | | [facility] - | | | | | | LABORATORY | | + + + + + + | Absolute | 0.10 | 0.00 - 0.40 | [facility] | | | Eosinophils | | K/uL | [facility] | | | | | | [facility] | | | | | | C[facility] - | | | | | | LABORATORY | | + + + + + + | Absolute | 0.10 | 0.00 - 0.10 | [facility] | | | Basophils | | K/uL | [facility] | | | | [...] ST. | [address] | [place] | [phone] | | [facility] | | [address] | | | - LABORATORY | | | | + + + + + Basic Metabolic Panel (03/26/2015 11:40 AM PST) + +--------+ + + + | Component | Value | Ref Range | Performed | Pathologist | | | | | At | Signature | + +--------+ + + + | Na | 139 | 136 - 149 | [facility] | | | | | mmol/L | [facility] | | | [facility] | | [facility] | | | | | | [facility] - | | | | | | LABORATORY | | + +--------+ + + + | K | 4.2 | 3.5 - 5.1 | [facility] | | | | | mmol/L | [facility] | | | | | | [facility] | | | | | | [facility] - | | | | | | LABORATORY | | + +--------+ + + + | Cl | 101 | 98 - 109 mmol/L | [facility] | | | | | | [facility] | | | | | | [facility] | | | | | | [facility] - | | | | | | LABORATORY | | + +--------+ + + + | CO2 | 31 | 24 - 31 mmol/L | [facility] | | | | | | [facility] | | | | | | [facility] | | | | | | [facility] - | | | | | | LABORATORY | | + +--------+ + + + | Anion Gap | 7 | 3 - 16 mmol/L | [facility] | | | | | | [facility] | | | [facility] | | [facility] | | | | | | [facility] - | | | | | | LABORATORY | | + +--------+ + + + | Glucose | 89 | 70 - 109 mg/dL | [facility] | | | | | | [facility] | | | | | | [facility] | | | | | | [facility] - | | | | | | LABORATORY | | + +--------+ + + + | BUN | 22 (H) | 7 - 18 mg/dL | [facility] | | | | | | [facility] | | | | | | [facility] | | | | | | [facility] - | | | | | | LABORATORY | | + +--------+ + + + | Creatinine | 1.08 | 0.60 - 1.30 | [facility] | | | | | mg/dL | [facility] | | | | | | [facility] | | | | | | C[facility] - | | | | | | LABORATORY | | + +--------+ + + + | eGFR if not | >60 | >=60 | [facility] | | | | | mL/min/1.73m2 | [facility] | | [facility] | | | [facility] | | | | | | CENTER - | | | | | | LABORATORY | | + +--------+ + + + | Calcium | 9.5 | 8.3 - 10.5 | [facility] | | | | | mg/dL | [facility] | | | | | | [facility] | | | | | | CENTER - | | | | | | LABORATORY | | + +--------+ + + + | BUN/Creatin | 20.4 | | [facility] | | | ine Ratio | | | [facility] | | | | | | [facility] | | | | | | CENTER - | | | | | | LABORATORY | | + +--------+ + + + + + | Specimen | + + | Blood | + + + + + + + | Performing | Address | City/State/Zipcode | Phone Number | | Organization | | | | + + + + + | [facility] | [address] | [place] | [phone] | | [facility] | | [address] | | | - LABORATORY | | | | + + + + + Culture, MRSA (03/26/2015 11:40 AM PST) + + + + + + | Component | Value | Ref Range | Performed | Pathologist | | | | | At | Signature | + + + + + + | Culture | Negative for MRSA by | | [facility] | | | | chromogenic agar method | | [facility] | | | | | | [facility] | | | | | | CENTER - | | | | | | LABORATORY | | + + + + + + + + | Specimen | + + | Respiratory - Both | | anterior nares (body | | structure) | + + + + + + + | Performing | Address | City/State/Zipcode | Phone Number | | Organization | | | | + + + + + | [facility] | [address] | [place] | [phone] | | [facility] | | [address] | | | - LABORATORY | | [...]
--- OUTSIDE RECORDS SUMMARY | ~2019-09-03 | XMS | Encounter Summary ---
Demographics + + + | Address | [address] | | | [place] [address] | + + + | Home Phone | | + + + | Preferred Language | Unknown | + + + | Marital Status | Single | + + + | Restoration Affiliation | 1077 | + + + | Race | Unknown | + + + | Ethnic Group | Unknown | + + + Author + + + | Author | [facility] | | | and [place] | + + + | Organization | [facility] | | | and [...] [place] | | | | | [address] | | + + + + + | Santo Cervantes | ECON | Unknown | | + + + + + Care Team Providers + +------+ + | Care Regional Transportation Manager Name | Role | Phone | + +------+ + | Atul Adkins MD | PCP | | + +------+ + Reason for Visit +--------+ + | Reason | Comments | +--------+ + | Other | Xrays | +--------+ + Encounter Details +--------+ + + + + | Date | Type | Department | Care Team | Description | +--------+ + + + + | 12/19/ | Telephone | [facility] [place] | Min Tello MD | Other (Xrays) | | 2014 | | NEUROSURGERY [address] | [address] | | | | | [address] | [place] [address] | | | | | [place] | [phone] | | | | | [address] | | | | | | [phone] | | | +--------+ + + + [...]
--- OUTSIDE RECORDS SUMMARY | ~2019-09-03 | XMS | Encounter Summary ---
Demographics + + + | Address | [address] | | | [place] [address] | + + + | Home Phone | | + + + | Preferred Language | Unknown | + + + | Marital Status | Single | + + + | Sabianism Affiliation | 1077 | + + + | Race | Unknown | + + + | Ethnic Group | Unknown | + + + Author + + + | Author | [facility] | | | and [place] | + + + | Organization | [facility] | | | and [...] [place] | | | | | [address] | | + + + + + | Santo Cervantes | ECON | Unknown | | + + + + + Care Team Providers + +------+ + | Care Anchorer Name | Role | Phone | + +------+ + | Shubham Maurer MD | PCP | | + +------+ + Reason for Visit + + + | Reason | Comments | + + + | Medication Refill | | + + + Encounter Details +--------+--------+ + + + | Date | Type | Department | Care Team | Description | +--------+--------+ + + + | 09/21/ | Refill | [facility] [place] | Julius Nowak | Medication Refill | | 2018 | | ORTHOPEDIC SURGERY | MD [address] | | | | | [address] [facility] | [place] | | | | | [place] | [address] | | | | | [address] | | | | | | [phone] | | | +--------+--------+ + + + [...]
--- OUTSIDE RECORDS SUMMARY | ~2019-09-03 | XMS | Encounter Summary ---
Demographics + + + | Address | [address] | | | [place] [address] | + + + | Home Phone | | + + + | Preferred Language | Unknown | + + + | Marital Status | Single | + + + | Sikhism Affiliation | 1077 | + + + | Race | Unknown | + + + | Ethnic Group | Unknown | + + + Author + + + | Author | [facility] | | | and [place] | + + + | Organization | [facility] | | | and [...] [place] | | | | | [address] | | + + + + + | Santo Cervantes | ECON | Unknown | | + + + + + Care Team Providers + +------+ + | Care Rodbuster Name | Role | Phone | + [...] Services | Therapy | Status post | [place] | [facility] | | | Required | | right knee | [address] | PHYSICAL | | | | | replacement | [address] | THERAPY [address] | | | | | Right knee | [address] | [address] | | | | | pain, | [place] | [place], [place] | | | | | unspecified | [address] | [address] | | | | | chronicity | Phone: | Phone: | | | | | | [phone] | [phone] | | | | | | Fax: | Fax: | | | | | | [phone] | [phone] | +--------+ + + + + + Encounter Details +--------+ + + + + | Date | Type | Department | Care Team | Description | +--------+ + + + + | 01/10/ | Orders Only | [facility] | Damian Escobedo | Status post right | | 2018 | | ORTHOPEDIC SURGERY | [address] | knee replacement | | | | [address] [facility] | [address] | (Primary Dx); Right | | | | [place] | [facility] [place] [place] [address] | knee pain, | | | | [address] | [phone] | unspecified | | | | [phone] | | chronicity | +--------+ + + [...]
--- OUTSIDE RECORDS SUMMARY | ~2019-09-03 | XMS | Encounter Summary ---
Demographics + + + | Address | [address] | | | [place] [address] | + + + | Home Phone | | + + + | Preferred Language | Unknown | + + + | Marital Status | Single | + + + | Rastafarian Affiliation | 1077 | + + + | Race | Unknown | + + + | Ethnic Group | Unknown | + + + Author + + + | Author | [facility] | | | and [place] | + + + | Organization | [facility] | [...] [place] | | | | | [address] | | + + + + + | Santo Cervantes | ECON | Unknown | | + + + + + Care Team Providers + +------+ + | Care Precision Machining Instructor Name | Role | Phone | [...] | Radiology | Diagnoses | [place], | [address] | | | | | Spinal | Jovan | [address] | | | | | stenosis, | [address] | [place], | | | | | lumbar | [address] | [place] [address] | | | | | Lumbar | [address] | Phone: | | | | | radiculopath | [place] | [phone] | | | | | y S/P | [address] | Fax: | | | | | lumbar | Phone: | [phone] | | | | | fusion DDD | [phone] | | | | | | (degenerativ | Fax: | | | | | | e disc | [phone] | | | | | | disease), [...] + + | 11/12/ | Office | [facility] | Jovan Alford | Spinal stenosis, | | 2016 | Visit | NEUROSURGERY [address] | [address] | lumbar (Primary Dx); | | | | [address] | [address] | Lumbar | | | | [place], [place] | [place] [address] | radiculopathy; S/P | | | | [address] | [phone] | lumbar fusion; DDD | | | | [phone] | | (degenerative disc | | | [...] the original. .. Jovan Alford PA-C [address] [facility], [address] [place] [address] FAX: NEUROSURGERY FOLLOW-UP CHIEF COMPLAINT: Chief Complaint [...] % cream Apply 1 Application topically Daily. [place]-3 Fatty Acids (OMEGA 3 PO) Take 2 [...] documented in this encounter Plan of Treatment + +---------+--------+ + + [...]
--- OUTSIDE RECORDS SUMMARY | ~2019-09-03 | XMS | Encounter Summary ---
Demographics + + + | Address | [address] | | | [place] [address] | + + + | Home Phone | | + + + | Preferred Language | Unknown | + + + | Marital Status | Single | + + + | Gnosticism Affiliation | 1077 | + + + | Race | Unknown | + + + | Ethnic Group | Unknown | + + + Author + + + | Author | [facility] | | | and [place] | + + + | Organization | [facility] | | | and [...] [place] | | | | | [address] | | + + + + + | Santo Cervantes | ECON | Unknown | | + + + + + Care Team Providers + +------+ + | Care Retail Marketing Manager Name | Role | Phone | + +------+ + | Shubham Maurer MD | PCP | | + +------+ + Encounter Details +--------+ + + + + | Date | Type | Department | Care Team | Description | +--------+ + + + + | 12/13/ | Episode | [facility] [place] | Elsa Delaney, | | | 2017 | Changes | ORTHOPEDIC SURGERY | Channel Worker | | | | | [address] [place] | | | | | | [place] | | | | | | [address] | | | | | | [phone] | | | +--------+ + + + [...]
--- OUTSIDE RECORDS SUMMARY | ~2019-09-03 | XMS | Encounter Summary ---
Demographics + + + | Address | [address] | | | [place] [address] | + + + | Home Phone | | + + + | Preferred Language | Unknown | + + + | Marital Status | Single | + + + | Tenriism Affiliation | 1077 | + + + | Race | Unknown | + + + | Ethnic Group | Unknown | + + + Author + + + | Author | [facility] | | | and [place] | + + + | Organization | [facility] | | [...] [place] | | | | | [address] | | + + + + + | Santo Cervantes | ECON | Unknown | | + + + + + Care Team Providers + +------+ + | Care Automobile Detailer Name | Role | Phone | + +------+ + | Shubham Maurer MD | PCP | | + +------+ + Encounter Details +--------+ + + + + | Date | Type | Department | Care Team | Description | +--------+ + + + + | 01/24/ | Hospital | [facility] | Damian Escobedo | Status post right | | 2018 | Encounter | [facility] | [address] | knee replacement; | | | | [address] [place] | [place] | Right knee pain, | | | | [place] | [place] [address] | unspecified | | | | [address] | [phone] | chronicity | | | | [phone] | | | +--------+ + + + [...]
--- OUTSIDE RECORDS SUMMARY | ~2019-09-03 | XMS | Encounter Summary ---
Demographics + + + | Address | [address] | | | [place] [address] | + + + | Home Phone | | + + + | Preferred Language | Unknown | + + + | Marital Status | Single | + + + | Tenriism Affiliation | 1077 | + + + | Race | Unknown | + + + | Ethnic Group | Unknown | + + + Author + + + | Author | [facility] | | | and [place] | + + + | Organization | [facility] | | | and [place] | [...] [place] | | | | | [address] | | + + + + + | Santo Cervantes | ECON | Unknown | | + + + + + Care Team Providers + +------+ + | Care Fishing Vessel Captain Name | Role | Phone | + +------+ + | Shubham Maurer MD | PCP | | + +------+ + Reason for Visit +--------+ + | Reason | Comments | +--------+ + | Other | | +--------+ + Encounter Details +--------+ + + + + | Date | Type | Department | Care Team | Description | +--------+ + + + + | 10/07/ | Telephone | [facility] [place] | Min Tello MD | Other | | 2015 | | NEUROSURGERY [address] | [address] | | | | | [address] | [place] [address] | | | | | [place] | [phone] | | | | | [address] | | | | | | [phone] | | | +--------+ + + + [...]
--- OUTSIDE RECORDS SUMMARY | ~2019-09-03 | XMS | Encounter Summary ---
Demographics + + + | Address | [address] | | | [place] [address] | + + + | Home Phone [...] | Author | [facility] | | | and [place] | + + + | Organization | [facility] | | | and [place] [...] | + + + + + | rBuno Day | ECON | Unknown | | + + + + + | Yung Vivar | ECON | [place] | | | | | [address] | | + + + + + | Santo Cervantes | ECON | Unknown | | + + + + + Care Team Providers + +------+ + | Care Hand Blocker Name | Role | Phone | + [...] + + | Closed | Specialty | Pain Medicine | Diagnoses | Min Tello | SONYA | | | Services | | | [address] | HEALTHCARE | | | Required | | Degenerative | [address] | [address] | | | | | disc | [place], | [address] | | | | | disease, | [place] [address] | [place], | | | | | lumbar | Phone: | [place] [address] | | | | | Facet | [phone] | Phone: | | | | | arthropathy, | Fax: | [phone] | | | | | lumbar | [phone] | Fax: | | | | | Foram[place] | | [phone] | | | | | stenosis of | | | | | | | lumbar | | | | | | | region | | | | | | | Lumbar | | | | | | | radiculopath | | | | | | | y Other | | | | | | | secondary | | | | | | | scoliosis, | | | | | | | lumbar | | | | | | | region | | | | | | | Lumbar | | | | | | | spinal | | | | | | | stenosis | | | | | | | S/P lumbar | | | | | | | fusion | | | +--------+ + + + + + Reason for Visit +--------+ + | Reason | Comments | +--------+ + | Other | REQUEST FOR REFERRAL TO A PAIN MANAGEMENT FACILITY | +--------+ + Encounter Details +--------+ + + + + | Date | Type | Department | Care Team | Description | +--------+ + + + + | 06/12/ | Telephone | [facility] [place] | Min Tello MD | Other (REQUEST FOR | | 2015 | | NEUROSURGERY [address] | [address] | REFERRAL TO A PAIN | | | | [address] | [place] [address] | MANAGEMENT FACILITY) | | | | [place] | [phone] | | | | | [address] | | | | | | [phone] | | | +--------+ + + + [...] | + + +--------+ + + | Pain Clinic, | Outpatient | Routin | Degenerative disc | Ordered: 06/17/2015 | | External - AMB | Referral | e | disease, lumbar | | | Referral | | | Facet arthropathy, | | | | | | lumbar Foram[place] | | | | | | stenosis of lumbar | | | | | | region Lumbar | | | | | | radiculopathy Other | | | | | | secondary | | | | | | scoliosis, lumbar | | | | | | region Lumbar | | | | | | spinal stenosis S/P | | | | | | lumbar fusion | | + + +--------+ + + documented as of this encounter Visit Diagnoses + + | Diagnosis | + + | Degenerative disc disease, lumbar - Primary Degeneration of lumbar or lumbosacral | | intervertebral disc | + + | Facet arthropathy, lumbar Lumbosacral spondylosis without myelopathy | + + | Foraminal stenosis of lumbar region Spinal stenosis, lumbar region, without | | neurogenic claudication | + + | Lumbar radiculopathy Thoracic or lumbosacral neuritis or radiculitis, unspecified | + + | Other secondary scoliosis, lumbar region | + + | Lumbar spinal stenosis Spinal stenosis, lumbar region, without neurogenic | | claudication | + + | S/P lumbar fusion Arthrodesis status | + + documented in this encounter"
--- OUTSIDE RECORDS SUMMARY | ~2019-09-03 | XMS | Encounter Summary ---
Demographics + + + | Address | [address] | | | [place] [address] | + + + | Home Phone [...] Author | [facility] | | | and [place] | + + + | Organization | [facility] | | | and [place] [...] [place] | | | | | [address] | | + + + + + | Santo Cervantes | ECON | Unknown | | + + + + + Care Team Providers + +------+ + | Care Strip Picker Name | Role | Phone | + [...] + + + | Closed | | MRI | Diagnoses | West, | [address] ST | | | | | Lumbar | Jovan | FELISA | | | | | radiculopath | BECCA Mejia [facility] | | | | | y Spinal | [address] | [address] | | | | | stenosis, | [address] | [address] | | | | | lumbar DDD | [place] | [place] | | | | | (degenerativ | [address] | [address] | | | | | e disc | Phone: | Phone: | | | | | disease), | [phone] | [phone] | | | | | lumbar | Fax: | Fax: | | | | | Procedures | [phone] | [phone] | | | | | MRI Lumbar | | | | | | | Spine w wo | | | | | | | Contrast | | | +--------+--------+ + + + + Reason for Visit + + + | Reason | Comments | + + + | Follow-up | Discuss an increase in symptoms | + + + Encounter Details +--------+---------+ + + + | Date | Type | Department | Care Team | Description | +--------+---------+ + + + | 10/09/ | Office | [facility] | Jovan Alford | Lumbar radiculopathy | | 2015 | Visit | NEUROSURGERY [address] | [address] | (Primary Dx); | | | | [address] | [address] | Spinal stenosis, | | | | [place], [place] | [place] [address] | lumbar; DDD | | | | [address] | [phone] | (degenerative disc | | | | [phone] | | disease), lumbar | +--------+---------+ + + + Social History [...] + + + | Blood Pressure | 100/58 | 10/10/2015 8:46 AM | | | | | PDT | | + + + + + | Pulse | 59 | 10/10/2015 8:46 AM | | | | | PDT | | + + + + + | Temperature | - | - | | + + + + + | Respiratory Rate | 20 | 10/10/2015 8:46 AM | | | | | PDT | | + + + + + | Oxygen Saturation | - | - | | + + + + + | Inhaled Oxygen | - | - | | | Concentration | | | | + + + + + | Weight | 79.4 kg (175 lb) | 10/10/2015 8:46 AM | | | | | PDT | | + + + + + | Height | 172.7 cm (5' 8") | 10/10/2015 8:46 AM | | | | | PDT | | + + + + + | Body Mass Index | 26.61 | 10/10/2015 8:46 AM | | | | | PDT | | + + + + + documented in this encounter Progress Notes Jovan Alford PA - 10/10/2015 9:07 AM PDTFormatting of this note might be differen t from the original. .. STEVE Mills [address] [facility], [address] [place], [place] [id number] FAX: NEUROSURGERY FOLLOW-UP CHIEF COMPLAINT: Chief Complaint Patient presents with Follow-up Discuss an increase in symptoms HISTORY OF PRESENT ILLNESS: The patient is a 65 y.o. male that had a lumbar fusion around 6 months ago. The patient had been doing fairly well. Unfortunately over the last month o r so he is had increasing weakness and some numbness in his feet prior to surgery he had rig ht-sided weakness. This resolved after surgery. He notices both of his feet flap with walk ing. He notices numbness in the top of his right foot. He has been seen by his primary car e provider been asked to be seen here for follow-up because of his worsening symptoms CURRENT MEDICATIONS: Current Outpatient Prescriptions Medication Sig Dispense Refill diclofenac (VOLTAREN) 75 mg EC tablet Take 75 mg by mouth 2 times daily. [place]-3 Krill Oil 500 MG CAPS Take 1 capsule by mouth Daily. No current facility-administered medications for this visit. ALLERGIES: No Known Allergies SOCIAL HISTORY: The patient reports that he has never smoked. He has never used smokeless tobacco. He repo rts that he drinks alcohol. He reports that he does not use illicit drugs. INTERIM PHYSICAL EXAMINATION: Blood pressure 100/58, pulse 59, resp. rate 20, height 1.727 m (5' 8"), weight 79.379 kg (1 75 lb). Body mass index is 26.61 kg/(m^2). GENERAL: Raúl Day is in no [...] foot numbness on the rig ht side ASSESSMENT: Encounter Diagnoses Name Primary? Lumbar radiculopathy Yes Spinal stenosis, lumbar DDD (degenerative disc disease), lumbar Past Medical History Diagnosis Date Hernia cerebri (HCC) Degenerative disc disease, lumbar Hard of hearing bilateral hearing aids PLAN: Overall, the patient is doing okay but has had significant progressive symptoms over the la st month or so. He has significant weakness on the left side which has not been present michael or or since surgery. He does have weakness on the right side. This was present prior to carbajal rgery but had resolved completely his postoperative and follow this. Both right and left si ded weakness is a significant change from his recent baseline and needs to be further evalua becka. I am planning to obtain an MRI with and without contrast of his lumbar spine as well a s flexion and extension x-rays of his lumbar spine. He will follow up in our office to revi ew the results after these tests have been completed. He will continue to follow-up with pr s primary care provider as needed ELECTRONICALLY SIGNED BY: STEVE Mills, 10/10/2015 9:25 documented in th is encounter Plan of Treatment + +---------+--------+ + + | Name | Type | Priori | Associated Diagnoses | Order Schedule | | | | ty | | | + +---------+--------+ + + | MRI Lumbar Spine w | Imaging | Routin | Lumbar | Expected: | | wo Contrast | | e | radiculopathy | 10/10/2015, Expires: | | | | | Spinal stenosis, | 10/09/2016 | | | | | lumbar DDD | | | | | | (degenerative disc | | | | | | disease), lumbar | | + +---------+--------+ + + | XR Lumbar Spine 4 + | Imaging | Routin | Lumbar | Ordered: 10/10/2015 | | Vw | | e | radiculopathy | | | | | | Spinal stenosis, | | | | | | lumbar DDD | | | | | | (degenerative disc | | | | | | disease), lumbar | | + +---------+--------+ + + documented as of this encounter Visit Diagnoses + + | Diagnosis | + + | Lumbar radiculopathy - Primary Thoracic or lumbosacral neuritis or radiculitis, | | unspecified | + + | Spinal stenosis, lumbar Spinal stenosis, lumbar region, without neurogenic | | claudication | + + | DDD (degenerative disc disease), lumbar Degeneration of lumbar or lumbosacral | | intervertebral disc | + + documented in this encounter
--- OUTSIDE RECORDS SUMMARY | ~2019-09-03 | XMS | Encounter Summary ---
Demographics + + + | Address | [address] | | | [place] [address] | + + + | Home Phone | | + + + | Preferred Language | Unknown | + + + | Marital Status | Single | + + + | Gnosticism Affiliation | 1077 | + + + | Race | Unknown | + + + | Ethnic Group | Unknown | + + + Author + + + | Author | and [facility] | | | and [place] | + + + | Organization | and [facility] | | [...] [place] | | | | | [address] | | + + + + + | Santo Cervantes | ECON | Unknown | | + + + + + Care Team Providers + +------+ + | Care Landing Gear Mechanic Name | Role | Phone | [...] | +--------+ + + + + | 04/10/ | Telephone | [facility] | Min Tello MD | Other | | 2015 | | NEUROSURGERY [address] | [address] | | | | | [address] | [place] [address] | | | | | [place] | [phone] | | | | | [address] | | | | | | [phone] | | | +--------+ + + + [...]
--- OUTSIDE RECORDS SUMMARY | ~2019-09-03 | XMS | Encounter Summary ---
Demographics + + + | Address | [address] | | | [place] [address] | + + + | Home Phone | | + + + | Preferred Language | Unknown | + + + | Marital Status | Single | + + + | Hoahaoism Affiliation | 1077 | + + + | Race | Unknown | + + + | Ethnic Group | Unknown | + + + Author + + + | Author | [facility] | | | and [place] | + + + | Organization | [facility] | | [...] [place] | | | | | [address] | | + + + + + | Santo Cervantes | ECON | Unknown | | + + + + + Care Team Providers + +------+ + | Care Plant Operator Control Room Operator Name | Role | Phone | [...] | | [address] | [place] [address] | (degenerative disc | | | | [place] | [phone] | disease), lumbar | | | | [address] | | | | | | [phone] | | | +--------+---------+ + + + [...] t isabel original. .. Min Tello MD [address] [place] [address], [address] [place] [address] FAX: NEUROSURGERY FOLLOW-UP CHIEF COMPLAINT: [...] % cream Apply 1 Application topically Daily. [place]-3 Fatty Acids (OMEGA 3 PO) Take 2 [...] Tello MD, 12/31/2015 8:[address] [place] Plan of Treatment Not on filedocumented as of this encounter Visit Diagnoses + + | Diagnosis | + + | S/P lumbar fusion - Primary Arthrodesis status | + + | DDD (degenerative disc disease), lumbar Degeneration of lumbar or lumbosacral | | intervertebral disc | + + documented in this encounter
--- OUTSIDE RECORDS SUMMARY | ~2019-09-03 | XMS | Encounter Summary ---
Demographics + + + | Address | [address] | | | [place] [address] | + + + | Home Phone | | + + + | Preferred Language | Unknown | + + + | Marital Status | Single | + + + | Cheondoism Affiliation | 1077 | + + + | Race | Unknown | + + + | Ethnic Group | Unknown | + + + Author + + + | Author | [facility] | | | and [place] | + + + | Organization | [facility] | | | and [place] | [...] [place] | | | | | [address] | | + + + + + | Santo Cervantes | ECON | Unknown | | + + + + + Care Team Providers + +------+ + | Care Cloth Washer Name | Role | Phone | + +------+ + | Shubham Maurer MD | PCP | | + +------+ + Reason for Visit + + + | Reason | Comments | + + + | Pre-op Exam | right total knee arthroplasty dos 12/19/17 | + + + | Knee Pain | right knee | + + + Encounter Details +--------+---------+ + + + | Date | Type | Department | Care Team | Description | +--------+---------+ + + + | 12/15/ | Office | [facility] | Julius Nowak | Pre-op testing | | 2018 | Visit | ORTHOPEDIC SURGERY | MD Liliana [address] [facility] | (Primary Dx); | | | | [address] [facility] | [facility] [place] | Primary | | | | [place], [place] | [address] | osteoarthritis of | | | | [address] | | both knees; Nocturia | | | | [phone] | | | +--------+---------+ + + + [...] + + + | Blood Pressure | 123/65 | 12/15/2017 3:25 PM | | | | | PDT | | + + + + + | Pulse | 58 | 12/15/2017 3:25 PM | | | | | PDT | | + + + + + | Temperature | 36.1 C (96.9 F) | 12/15/2017 3:25 PM | | | | | PDT | | + + + + + | Respiratory Rate | 14 | 12/15/2017 3:25 PM | | | | | PDT | | + + + + + | Oxygen Saturation | 99% | 12/15/2017 3:25 PM | | | | | PDT | | + + + + + | Inhaled Oxygen | - | - | | | Concentration | | | | + + + + + | Weight | 79.4 kg (175 lb) | 12/15/2017 3:25 PM | | | | | PDT | | + + + + + | Height | 172.7 cm (5' 8") | 12/15/2017 3:25 PM | | | | | PDT | | + + + + + | Body Mass Index | 26.61 | 12/15/2017 3:25 PM | | | | | PDT | | + + + + + documented in this encounter Plan of Treatment Not on filedocumented as of this encounter Procedures + +--------+ + + + | Procedure Name | Priori | Date/Time | Associated Diagnosis | Comments | | | ty | | | | + +--------+ + + + | CULTURE, MRSA | Routin | 12/15/2017 | Pre-op testing | Results for this | | | e | 4:53 PM | Primary | procedure are in the | | | | PDT | osteoarthritis of | results section. | | | | | both knees | | + +--------+ + + + documented in this encounter Results Urinalysis with Microscopic with Culture if Indicated (12/15/2017 5:10 PM PDT) + + + + + + | Component | Value | Ref Range | Performed | Pathologist | | | | | At | Signature | + + + + + + | Color, | Yellow | Light Yellow, | [facility] | | | Urine | | Yellow, Straw | [facility] | | | | | | [facility] | | | | | | [facility] - | | | | | | LABORATORY | | + + + + + + | Clarity | Clear | Clear | [facility] | | | | | | [facility] | | | | | | [facility] | | | | | | [facility] - | | | | | | LABORATORY | | + + + + + + | pH, Urine | 5.0 | 5.0 - 8.0 | [facility] | | | | | | [facility] | | | | | | [facility] | | | | | | C[facility] - | | | | | | LABORATORY | | + + + + + + | Specific | 1.013 | 1.001 - 1.030 | [facility] | | | [place], | | | [facility] | | | Urine | | | MEDICAL | | | | | | CENTER - | | | | | | LABORATORY | | + + + + + + | Protein, | Negative | Negative | [facility] | | | Urine | | | [facility] | | | | | | MEDICAL | | | | | | CENTER - | | | | | | LABORATORY | | + + + + + + | Blood, | Negative | Negative | [facility] | | | Urine | | | [facility] | | | | | | MEDICAL | | | | | | CENTER - | | | | | | LABORATORY | | + + + + + + | Glucose, | Negative | Negative | [facility] | | | Urine | | | [facility] | | | | | | MEDICAL | | | | | | CENTER - | | | | | | LABORATORY | | + + + + + + | Ketones, | 20 mg/dL (A) | Negative | [facility] | | | Urine | | | [facility] | | | | | | [facility] | | | | | | CENTER - | | | | | | LABORATORY | | + + + + + + | Bilirubin, | Negative | Negative | [facility] | | | Urine | | | [facility] | | | | | | MEDICAL | | | | | | CENTER - | | | | | | LABORATORY | | + + + + + + | Nitrite, | Negative | Negative | [facility] | | | Urine | | | [facility] | | | | | | MEDICAL | | | | | | CENTER - | | | | | | LABORATORY | | + + + + + + | Leukocyte | Negative | Negative | [facility] | | | Esterase, | | | [facility] | | | Urine | | | MEDICAL | | | | | | CENTER - | | | | | | LABORATORY | | + + + + + + | Urobilinoge | Negative | 0.2 mg/dL, 1.0 | [facility] | | | n, Urine | | mg/dL, Negative | [facility] | | | | | | MEDICAL | | | | | | CENTER - | | | | | | LABORATORY | | + + + + + + | White Blood | 0-2 | 0 - 2 /HPF | [facility] | | | Cells, | | | [facility] | | | Urine | | | MEDICAL | | | | | | CENTER - | | | | | | LABORATORY | | + + + + + + | Red Blood | 0-2 | 0 - 2 /HPF | [facility] | | | Cells, | | | [facility] | | | Urine | | | MEDICAL | | | | | | CENTER - | | | | | | LABORATORY | | + + + + + + | Squamous | 0-2 | 0 - 2 /LPF | [facility] | | | Epithelial | | | [facility] | | | Cells, | | | MEDICAL | | | Urine | | | CENTER - | | | | | | LABORATORY | | + + + + + + | Bacteria, | Negative | Negative /HPF | [facility] | | | Urine | | | [facility] | | | | | | MEDICAL | | | | | | CENTER - | | | | | | LABORATORY | | + + + + + + + + | Specimen | + + | Urine | + + + + + + + | Performing | Address | City/State/Zipcode | Phone Number | | Organization | | | | + + + + + | [facility] | [address] | [place] | [phone] | | [facility] | | [address] | | | - LABORATORY | | | | + + + + + Culture, MRSA (12/15/2017 4:53 PM PDT) + + + + + + [...] + | Specimen | + + | Tissue - Both | | anterior nares (body | | structure) | + + + + + + + | Performing | Address | City/State/Zipcode | Phone Number | | Organization | | | | + + + + + | [facility] | [address] | [place] | [phone] | | [facility] | | [address] | | | - LABORATORY | | | | + + + + + documented in this encounter Visit Diagnoses + + | Diagnosis | + + | Pre-op testing - Primary Preoperative examination, unspecified | + + | Primary osteoarthritis of both knees Primary localized osteoarthrosis, lower leg | + + | Nocturia | + + documented in this encounter
--- OUTSIDE RECORDS SUMMARY | ~2019-09-03 | XMS | Encounter Summary ---
Demographics + + + | Address | [address] | | | [place] [address] | + + + | Home Phone | | + + + | Preferred Language | Unknown | + + + | Marital Status | Single | + + + | Alevism Affiliation | 1077 | + + + | Race | Unknown | + + + | Ethnic Group | Unknown | + + + Author + + + | Author | [facility] | | | and [place] | + + + | Organization | [facility] | | | and [place] [...] [place] | | | | | [address] | | + + + + + | Santo Cervantes | ECON | Unknown | | + + + + + Care Team Providers + +------+ + | Care Video Tape Duplicator Name | Role | Phone | + +------+ + | Shubham Maurer MD | PCP | | + +------+ + Encounter Details +--------+ + + + + | Date | Type | Department | Care Team | Description | +--------+ + + + + | 11/07/ | Orders Only | [facility] | Julius Nowak | Pain in both knees, | | 2018 | | ORTHOPEDIC SURGERY | MD [address]iana [address] [facility] | unspecified | | | | [address] [facility] | [place] | chronicity (Primary | | | | [place] | [address] | Dx) | | | | [address] | | | | | | [phone] | | | +--------+ + + + [...] filedocumented as of this encounter Results XR Knee Left 4 + Vw (11/08/2017 2:18 PM PDT) + + | Specimen | + + | | + + + + + | Narrative | Performed At | + + + | CLINICAL INFORMATION: left knee pain. COMPARISON: None | [facility] | | available. FINDINGS: 4 views of each knee. Bones: No | | | fracture or dislocation. No periostitis or erosion. Joints: | | | Severe right and moderate left renal compartment joint space | | | narrowing. The lateral compartment spaces appear preserved. | | | Patellofemoral compartment spaces are preserved. Bilateral | | | tricompartment osteophyte formation, most notable at the right medial | | | compartment. Probable small bilateral joint effusions. Soft | | | tissue: Mineralization noted within bilateral menisci. IMPRESSION | | | - Bilateral tricompartment osteoarthritis, severe right and moderate | | | left medial compartment degeneration. Probable small bilateral | | | joint effusions. Bilateral chondrocalcinosis. Dictated and | | | Signed by: Manpreet Curran MD Electronically signed: 11/08/2017 | | | 3:12 PM | | + + + + + | Procedure Note | + + | Luis, Rad Results In - 11/08/2017 3:15 PM PDT CLINICAL INFORMATION: left knee pain. | | | | COMPARISON: None available. | | | | FINDINGS: | | 4 views of each knee. | | | | Bones: No fracture or dislocation. No periostitis or erosion. | | | | Joints: Severe right and moderate left renal compartment joint space narrowing. | | The lateral compartment spaces appear preserved. Patellofemoral compartment | | spaces are preserved. Bilateral tricompartment osteophyte formation, most | | notable at the right medial compartment. Probable small bilateral joint | | effusions. | | | | Soft tissue: Mineralization noted within bilateral menisci. | | | | IMPRESSION - | | Bilateral tricompartment osteoarthritis, severe right and moderate left medial | | compartment degeneration. | | | | Probable small bilateral joint effusions. | | | | Bilateral chondrocalcinosis. | | | | Dictated and Signed by: Manpreet Curran MD | | Electronically signed: 11/08/2017 3:12 PM | + + + +---------+ + + | Performing | Address | City/State/Zipcode | Phone Number | | Organization | | | | + +---------+ + + | [facility] | | | | + +---------+ + + XR Knee Right 1 - 2 Vw (11/08/2017 2:18 PM PDT) + + | Specimen | + + | | + + + + + | Narrative | Performed At | + + + | CLINICAL INFORMATION: left knee pain. COMPARISON: None | [facility] | | available. FINDINGS: 4 views of each knee. Bones: No | | | fracture or dislocation. No periostitis or erosion. Joints: | | | Severe right and moderate left renal compartment joint space | | | narrowing. The lateral compartment spaces appear preserved. | | | Patellofemoral compartment spaces are preserved. Bilateral | | | tricompartment osteophyte formation, most notable at the right medial | | | compartment. Probable small bilateral joint effusions. Soft | | | tissue: Mineralization noted within bilateral menisci. IMPRESSION | | | - Bilateral tricompartment osteoarthritis, severe right and moderate | | | left medial compartment degeneration. Probable small bilateral | | | joint effusions. Bilateral chondrocalcinosis. Dictated and | | | Signed by: Manpreet Curran MD Electronically signed: 11/08/2017 | | | 3:12 PM | | + + + + + | Procedure Note | + + | Luis, Rad Results In - 11/08/2017 3:15 PM PDT CLINICAL INFORMATION: left knee pain. | | | | COMPARISON: None available. | | | | FINDINGS: | | 4 views of each knee. | | | | Bones: No fracture or dislocation. No periostitis or erosion. | | | | Joints: Severe right and moderate left renal compartment joint space narrowing. | | The lateral compartment spaces appear preserved. Patellofemoral compartment | | spaces are preserved. Bilateral tricompartment osteophyte formation, most | | notable at the right medial compartment. Probable small bilateral joint | | effusions. | | | | Soft tissue: Mineralization noted within bilateral menisci. | | | | IMPRESSION - | | Bilateral tricompartment osteoarthritis, severe right and moderate left medial | | compartment degeneration. | | | | Probable small bilateral joint effusions. | | | | Bilateral chondrocalcinosis. | | | | Dictated and Signed by: Manpreet Curran MD | | Electronically signed: 11/08/2017 3:12 PM | + + + +---------+ + + | Performing | Address | City/State/Zipcode | Phone Number | | Organization | | | | + +---------+ + + | [facility] | | | | + +---------+ + + documented in this encounter Visit Diagnoses + + | Diagnosis | + + | Pain in both knees, unspecified chronicity - Primary | + + documented in this encounter"
--- OUTSIDE RECORDS SUMMARY | ~2019-09-03 | XMS | Encounter Summary ---
Demographics + + + | Address | [address] | | | [place] [address] | + + + | Home Phone | | + + + | Preferred Language | Unknown | + + + | Marital Status | Single | + + + | Confucianism Affiliation | 1077 | + + + | Race | Unknown | + + + | Ethnic Group | Unknown | + + + Author + + + | Author | [facility] | | | and [place] | + + + | Organization | [facility] [...] [place] | | | | | [address] | | + + + + + | Santo Cervantes | ECON | Unknown | | + + + + + Care Team Providers + +------+ + | Care Paper Rewinder Operator Name | Role | Phone | [...] 2017 | Changes | ORTHOPEDIC SURGERY | Wire Bound Box Machine Helper | | | | | [place] | | | | | | [place] | | | | | | [address] | | | | | | [phone] | | | +--------+ + + + [...]
--- OUTSIDE RECORDS SUMMARY | ~2019-09-03 | XMS | Encounter Summary ---
Demographics + + + | Address | [address] | | | [place] [address] | + + + | Home Phone [...] + + + | Author | [facility] | | | and [place] | + + + | Organization | [facility] | | | and [...] [place] | | | | | [address] | | + + + + + | Santo Crevantes | ECON | Unknown | | + + + + + Care Team Providers + +------+ + | Care Aquarium Specialist Name | Role | Phone | [...] | | | | spine, | | [place], [place] | | | | | unspecified | | [address] | | | | | scoliosis | | Phone: | | | | | Scoliosis of | | [phone] | | | | | lumbar | | Fax: | | | | | spine, | | [phone] | | | | | unspecified | | | | | | | scoliosis | | | | | | | [M41.9] | | | | | | | Procedures | | | | | | | [place] | | | | | | | [...] + + | 05/05/ | Surgery | [facility] | Min Tello MD | L3-4, L4-5 Lateral | | 2016 | | MED CTR OR INTRA OP | [address] | Anterior Interbody | | | | [address] | [place] [address] | Fusion, L5-S1 | | | | [place] | [phone] | Transforaminal | | | | [address] | | Lumbar Interbody | | | | [phone] | | Fusion, Laminectomy | | | [...] + + + | Blood Pressure | 110/59 | 05/08/2015 8:00 AM | | | | | PST | | + + + + + | Pulse | 81 | 05/08/2015 8:00 AM | | | | | PST | | + + + + + | Temperature | 35.5 C (95.9 F) | 05/08/2015 8:00 AM | | | | | PST | | + + + + + | Respiratory Rate | 20 | 05/08/2015 8:00 AM | | | | | PST | | + + + + + | Oxygen Saturation | 96% | 05/08/2015 8:00 AM | | | | | PST | | + + + + + | Inhaled Oxygen | - | - | | | Concentration | | | | + + + + + | Weight | 83.5 kg (184 lb 1.4 | 05/06/2015 5:00 AM | | | | oz) | PST | | + + + [...] might be differen t from the original. [facility] NEUROSURGERY DISCHARGE SUMMARY Patient Name: Raúl Day [...] PO Take 2 capsules by mouth Daily. [place]-3 Krill Oil 500 MG Caps Take 1 [...] Units Take 1,000 Units by mouth Daily. VOO-NJT-Jpznaja E (OMEGA-3 COMPLEX PO) 2 capsules Take 2 capsules by mouth Daily. [place]-3 Krill Oil 500 MG CAPS 1 capsule [...] + + + +---------+ + + | BCR-OVX-Kpmdpbt E | Take 2 capsules by | [...] + + + +---------+ + + | [place]-3 Krill Oil | Take 2 capsules by [...] documented as of this encounter Progress Notes Katie Delgado RN - 05/08/2015 10:42 AM PSTPt [facility] Pt was wheeled out in a stable condition. Report given to Re at [facility]. Electro nically signed by Katie Delgado RN at 05/08/2015 10:44 AM PSTWest, Jaspreet Espino - 05/07/2015 7:42 AM PST [facility] PROGRESS NOTE Pt. Name/Age/: Raúl Day 65 y.o. 1950 Med. Record Number: [id number] Date of admission: 05/05/2015 Subjective: The patient [...] Electronically signed by: Jovan Alford, 05/07/2015 7:42 [facility] erik Joseph, Medical Student - 05/06/2015 7:36 AM PST67 [...] and ambulating today. documented in this encounter Plan of Treatment + +------+--------+ + + | Name | [...] placement of hardware for posterior fusion from Y3zstolxm S1 with spacer | | hardware at [...]
--- OUTSIDE RECORDS SUMMARY | ~2019-09-03 | XMS | Encounter Summary ---
Demographics + + + | Address | [address] | | | [place] [address] | + + + | Home Phone [...] + + + | Author | [facility] | | | and [place] | + + + | Organization | [facility] | | | and [place] [...] [place] | | | | | [address] | | + + + + + | Santo Cervantes | ECON | Unknown | | + + + + + Care Team Providers + +------+ + | Care Energy Efficiency Engineer Name | Role | Phone | [...] 2017 | Changes | ORTHOPEDIC SURGERY | Teaching Fellow | | | | | [place] | | | | | | [place] | | | | | | [address] | | | | | | [phone] | | | +--------+ + + + [...]
--- OUTSIDE RECORDS SUMMARY | ~2019-09-03 | XMS | Encounter Summary ---
Demographics + + + | Address | [address] | | | [place] [address] | + + + | Home Phone | | + + + | Preferred Language | Unknown | + + + | Marital Status | Single | + + + | Hinduism Affiliation | 1077 | + + + | Race | Unknown | + + + | Ethnic Group | Unknown | + + + Author + + + | Author | [facility] | | | and [place] | + + + | Organization | [facility] | | | and [place] [...] [place] | | | | | [address] | | + + + + + | Santo Cervantes | ECON | Unknown | | + + + + + Care Team Providers + +------+ + | Care Personnel Administrator Name | Role | Phone | + +------+ + | Shubham Maurer MD | PCP | | + +------+ + Reason for Visit + + + | Reason | Comments | + + + | Follow-up | S/P: L3-5 LAIF, L5-S1 DREW BARRIOS L3-S1 on 05/05/15 12wk po | + + + Encounter Details +--------+---------+ + + + | Date | Type | Department | Care Team | Description | +--------+---------+ + + + | 08/19/ | Office | [facility] | Min Tello MD | S/P lumbar fusion | | 2016 | Visit | NEUROSURGERY [address] | [address] | (Primary Dx) | | | | [address] | [place] [address] | | | | | [place] | [phone] | | | | | [address] | | | | | | [phone] | | | +--------+---------+ + + + [...] + + + | Blood Pressure | 99/59 | 08/20/2015 12:06 PM | | | | | PDT | | + + + + + | Pulse | 59 | 08/20/2015 12:06 PM | | | | | PDT | | + + + + + | Temperature | - | - | | + + + + + | Respiratory Rate | 16 | 08/20/2015 12:06 PM | | | | | PDT | | + + + + + | Oxygen Saturation | - | - | | + + + + + | Inhaled Oxygen | - | - | | | Concentration | | | | + + + + + | Weight | 78.9 kg (174 lb) | 08/20/2015 12:06 PM | | | | | PDT | | + + + + + | Height | 172.7 cm (5' 8") | 08/20/2015 12:06 PM | | | | | PDT | | + + + + + | Body Mass Index | 26.46 | 08/20/2015 12:06 PM | | | | | PDT | | + + + + + documented in this encounter Progress Notes Min Tello MD - 08/20/2015 2:13 PM PDTFormatting of this note might be different from t he original. Min Tello MD [address] [place] [address], [address] [place], [place] [id number] FAX: NEUROSURGERY FOLLOW-UP CHIEF COMPLAINT: Chief Complaint Patient presents with Follow-up S/P: L3-5 LAIF, L5-S1 TLIF, LAMI L3-S1 on 05/05/15 12wk po HISTORY OF PRESENT ILLNESS: The patient is a 65 y.o. male that had a lumbar fusion around 3 months ago. He returns and overall is doing great. The patient complains of some tingli ng in his legs but overall he feels like he is improving well. The patient has been walkin g as much as directed. He is not still taking pain medications at this point. The patient has had no issues with his surgical site. He is very pleased with his improvement. CURRENT MEDICATIONS: Current Outpatient Prescriptions Medication Sig Dispense Refill acetaminophen (TYLENOL) 500 mg tablet Take 500 mg by mouth every 6 hours as needed for Pain. [place]-3 Krill Oil 500 MG CAPS Take 1 capsule by mouth Daily. No current facility-administered medications for this visit. ALLERGIES: No Known Allergies SOCIAL HISTORY: The patient reports that he has never smoked. He has never used smokeless tobacco. He repo rts that he drinks alcohol. He reports that he does not use illicit drugs. INTERIM PHYSICAL EXAMINATION: Blood pressure 99/59, pulse 59, resp. rate 16, height 1.727 m (5' 8"), weight 78.926 kg (17 4 lb). Body mass index is 26.46 kg/(m^2). GENERAL: Raúl Day is in no acute distress with unlabored respirations. SPINE: The patient s incisions are healing well without drainage, significant erythema, o r discharge. EXTREMITIES: No lower extremity edema. NEUROLOGICAL EXAMINATION: MENTAL STATUS: The patient is awake, alert, and oriented. He follows simple and complex commands MOTOR EXAM: Motor strength is 5/5. SENSORY EXAM: The sensory examination is unchanged when compared to the preoperative exam. RADIOGRAPHIC REVIEW: The patient s x-rays show stable instrumentation and alignment and were reviewed with the patient today. Increased bony fusion is noted but it is not complete. ASSESSMENT: Encounter Diagnosis Name Primary? S/P lumbar fusion Yes Past Medical History Diagnosis Date Hernia cerebri (HCC) Degenerative disc disease, lumbar Hard of hearing bilateral hearing aids PLAN: Overall, the patient is doing well. Most of the preoperative symptoms are resolving as exp ected. The patient is planning to go home today after being at a [facility]p facility. He did start anti-inflammatories for his knee discomfort. I've asked him to follow-up with his primary care provider for direction on how to treat his knee pain without anti-inflamma tories. A median with a list of questions 2 pages long. All of these were reviewed with yanira ray in detail. All of his questions were answered fully. He did ask for refill of his pain m edication to help with pain control. This was again provided I increased the patient s activities now allowing a 30 pound lifting restriction that can be gradually increased to an as tolerated limit. The patient should increase range of bill on activities as tolerated. They should continue regular exercise and strengthening with th e hope that they can avoid additional surgery. [facility] pain medication does not appear to be needed. The patient needs to follow-up in 6 months with x-rays for re-evaluation ELECTRONICALLY SIGNED BY: Min Tello MD, 08/20/2015 14:13 documented in this encou nter Plan of Treatment + +---------+--------+ + + | Name | Type | Priori | Associated Diagnoses | Order Schedule | | | | ty | | | + +---------+--------+ + + | XR Lumbar Spine 2 or | Imaging | Routin | S/P lumbar fusion | Expected: 02/16/2016 | | 3 Vw | | e | | (Approximate), | | | | | | Expires: 08/18/2016 | + +---------+--------+ + + documented as of this encounter Visit Diagnoses + + | Diagnosis | + + | S/P lumbar fusion - Primary Arthrodesis status | + + documented in this encounter
--- OUTSIDE RECORDS SUMMARY | ~2019-09-03 | XMS | Encounter Summary ---
Demographics + + + | Address | [address] | | | [place] [address] | + + + | Home Phone | | + + + | Preferred Language | Unknown | + + + | Marital Status | Single | + + + | Episcopalian Affiliation | 1077 | + + + | Race | Unknown | + + + | Ethnic Group | Unknown | + + + Author + + + | Author | [facility] | | | and [place] | + + + | Organization | [facility] | | | and [place] [...] [place] | | | | | [address] | | + + + + + | Santo Cervantes | ECON | Unknown | | + + + + + Care Team Providers + +------+ + | Care Material Mixer Name | Role | Phone | + [...] | | [address] | [place] [address] | | | | | [place] | [phone] | | | | | [address] | | | | | | [phone] | | | +--------+ + + + [...]
--- OUTSIDE RECORDS SUMMARY | ~2019-09-03 | XMS | Encounter Summary ---
Demographics + + + | Address | [address] | | | [place] [address] | + + + | Home Phone | | + + + | Preferred Language | Unknown | + + + | Marital Status | Single | + + + | Orthodoxy Affiliation | PRO | + + + [...] Team Providers + +------+ + | Care Crap Game Box Person Name | Role | Phone | + +------+ + | Shubham Maurer MD | PCP | | + +------+ + Reason for Visit + + + | Reason | Comments | + + + | Phone communication | | + + + Encounter Details [...] | | | | [address] | [place] [address] | | | | | [place], [place] | [phone] | | | | | [address] | | | | | | [phone] | | | +--------+ + + + [...]
--- OUTSIDE RECORDS SUMMARY | ~2019-09-03 | XMS | Encounter Summary ---
Demographics + + + | Address | [address] | | | [place] [address] | + + + | Home Phone | | + + + | Preferred Language | Unknown | + + + | Marital Status | Single | + + + | Mosque Affiliation | 1077 | + + + | Race | Unknown | + + + | Ethnic Group | Unknown | + + + Author + + + | Author | [facility] | | | and [place] | + + + | Organization | [facility] | | | and [place] | [...] [place] | | | | | [address] | | + + + + + | Santo Cervantes | ECON | Unknown | | + + + + + Care Team Providers + +------+ + | Care Financial Operations Analyst Name | Role | Phone | + +------+ + | Shubham Maurer MD | PCP | | + +------+ + Encounter Details +--------+ + + + + | Date | Type | Department | Care Team | Description | +--------+ + + + + | 01/17/ | Orders Only | [facility] | Damian Escobedo | Status post right | | 2018 | | ORTHOPEDIC SURGERY | [address] | knee replacement | | | | [address] [facility] | Steven Awad | (Primary Dx); Right | | | | [place] | [place] [address] | knee pain, | | | | [address] | [phone] | unspecified | | | | [phone] | | chronicity | +--------+ + + [...]
--- OUTSIDE RECORDS SUMMARY | ~2019-09-03 | XMS | Encounter Summary ---
Demographics + + + | Address | [address] | | | [place] [address] | + + + | Home Phone [...] + | Author | [facility] | | | and [place] | + + + | Organization | [facility] | | | and [place] [...] [place] | | | | | [address] | | + + + + + | Santo Cervantes | ECON | Unknown | | + + + + + Care Team Providers + +------+ + | Care Final Assembly Inspector Name | Role | Phone | [...] Radiology | Diagnoses | Min Tello | [facility] | | | | | Neck pain, | [address] | [address] | | | | | acute Left | [address] | [place], | | | | | arm pain | [place], | [place] | | | | | Left arm | [place] [address] | [address] | | | | | numbness | Phone: | Phone: | | | | | Other | [phone] | [phone] | | | | | osteoarthrit | Fax: | Fax: | | | | | is of spine, | [phone] | [phone] | | | | | cervical | [...] Radiology | Diagnoses | Min Tello | [facility] | | | | | Neck pain, | [address] | [address] | | | | | acute Left | [address] | [place], | | | | | arm pain | [place], | [place] | | | | | Left arm | [place] [address] | [address] | | | | | numbness | Phone: | Phone: | | | | | Other | [phone] | [phone] | | | | | osteoarthrit | Fax: | Fax: | | | | | is of spine, | [phone] | [phone] | | | | | cervical | [...] + + | 02/28/ | Hospital | [facility] | Min Tello MD | Neck pain, acute; | | 2014 | Encounter | MED CTR MRI [address] | [address] | Left arm pain; Left | | | | [address] [place], | [place] [address] | arm numbness; Other | | | | [place] [address] | [phone] | osteoarthritis of | | | | [phone] | | spine, cervical | | | [...] | + + + +---------+--------+ + | AXP-HZW-Uutjndk E | Take 2 capsules by | [...] | + + + +---------+--------+ + | [place]-3 Krill Oil | Take 2 capsules by [...] MR imaging of the cervical spine | [facility] | | without contrast. This is performed [...] ST. | [address] | [place], [place] | [phone] | | [facility] | | [address] | | | - IMAGING | | [...]
--- OUTSIDE RECORDS SUMMARY | ~2019-09-03 | XMS | Encounter Summary ---
Demographics + + + | Address | [address] | | | [place] [address] | + + + | Home Phone [...] | Author | [facility] | | | and [place] | + + + | Organization | [facility] | | | and [place] [...] [place] | | | | | [address] | | + + + + + | Santo Cervantes | ECON | Unknown | | + + + + + Care Team Providers + +------+ + | Care Staying Machine Operator Name | Role | Phone [...] | +--------+ + + + + | 07/04/ | Telephone | [facility] [place] | Min Tello MD | Post-op Question | | 2018 | | NEUROSURGERY [address] | [address] | | | | | [address] | [place] [address] | | | | | [place] | [phone] | | | | | [address] | | | | | | [phone] | | | +--------+ + + + [...]
--- OUTSIDE RECORDS SUMMARY | ~2019-09-03 | XMS | Encounter Summary ---
Demographics + + + | Address | [address] | | | [place] [address] | + + + | Home Phone | | + + + | Preferred Language | Unknown | + + + | Marital Status | Single | + + + | Gnosticism Affiliation | 1077 | + + + | Race | Unknown | + + + | Ethnic Group | Unknown | + + + Author + + + | Author | [facility] | | | and [place] | + + + | Organization | [facility] | [...] [place] | | | | | [address] | | + + + + + | Santo Cervantes | ECON | Unknown | | + + + + + Care Team Providers + +------+ + | Care Plant Breeder Name | Role | Phone | + [...] | | | | spine, | | [place], [place] | | | | | unspecified | | [address] | | | | | scoliosis | | Phone: | | | | | Scoliosis of | | [phone] | | | | | lumbar | | Fax: | | | | | spine, | | [phone] | | | | | unspecified | | | | | | | scoliosis | | | | | | | [M41.9] | | | | | | | Procedures | | | | | | | [place] | | | | | | | [...] + + | 05/05/ | Surgery | [facility] | Min Tello MD | L3-4, L4-5 Lateral | | 2016 | | MED CTR OR INTRA OP | [address] | Anterior Interbody | | | | [address] | [place] [address] | Fusion, L5-S1 | | | | [place] | [phone] | Transforaminal | | | | [address] | | Lumbar Interbody | | | | [phone] | | Fusion, Laminectomy | | | [...] might be differen t from the original. [facility] NEUROSURGERY DISCHARGE SUMMARY Patient Name: Raúl [...] PO Take 2 capsules by mouth Daily. [place]-3 Krill Oil 500 MG Caps Take 1 [...] Units Take 1,000 Units by mouth Daily. THG-RFN-Affpcje E (OMEGA-3 COMPLEX PO) 2 capsules Take 2 capsules by mouth Daily. [place]-3 Krill Oil 500 MG CAPS 1 capsule [...] + + + +---------+ + + | JWK-KVX-Fzmmglv E | Take 2 capsules by | [...] + + + +---------+ + + | [place]-3 Krill Oil | Take 2 capsules by [...] - 05/08/2015 10:42 AM PSTPt [facility] Pt was wheeled out in a stable condition. Report given to Re at [facility]. Electro nically signed by Katie Delgado RN at 05/08/2015 10:44 AM PSTWest, Jaspreet Espino - 05/07/2015 7:42 AM PST [facility] PROGRESS NOTE Pt. Name/Age/: Raúl Day 65 y.o. 1950 Med. Record Number: [id number] Date of admission: 05/05/2015 Subjective: The patient [...] signed by: Jovan Alford, 05/07/2015 7:42 [facility] erik Joseph, Medical Student - 05/06/2015 [...] placement of hardware for posterior fusion from D4pfnpigj S1 with spacer | | hardware at [...]
--- OUTSIDE RECORDS SUMMARY | ~2019-09-03 | XMS | Encounter Summary ---
Demographics + + + | Address | [address] | | | [place] [address] | + + + | Home Phone [...] | Author | [facility] | | | and [place] | + + + | Organization | [facility] | | | and [place] [...] [place] | | | | | [address] | | + + + + + | Santo Cervantes | ECON | Unknown | | + + + + + Care Team Providers + +------+ + | Care Commercial Front Load Operator Name | Role | Phone | + +------+ + | Shubham Maurer MD | PCP | | + +------+ + Reason for Visit + + + | Reason | Comments | + + + | Appointment | | + + + Encounter Details +--------+ + + + + | Date | Type | Department | Care Team | Description | +--------+ + + + + | 10/23/ | Telephone | [facility] [place] | Min Tello MD | Appointment | | 2016 | | NEUROSURGERY [address] | [address] | | | | | [address] | [place] [address] | | | | | [place] | [phone] | | | | | [address] | | | | | | [phone] | | | +--------+ + + + [...]
--- OUTSIDE RECORDS SUMMARY | ~2019-09-03 | XMS | Encounter Summary ---
Demographics + + + | Address | [address] | | | [place] [address] | + + + | Home Phone [...] | [facility] | | | and [place] | + + + | Organization | [facility] | | | and [...] [place] | | | | | [address] | | + + + + + | Santo Cervantes | ECON | Unknown | | + + + + + Care Team Providers + +------+ + | Care Para Machine Operator Name | Role | Phone [...] | | | | spine, | | [place], [place] | | | | | unspecified | | [address] | | | | | scoliosis | | Phone: | | | | | Scoliosis of | | [phone] | | | | | lumbar | | Fax: | | | | | spine, | | [phone] | | | | | unspecified | | | | | | | scoliosis | | | | | | | [M41.9] | | | | | | | Procedures | | | | | | | [place] | | | | | | | [...] + + + + | 05/05/ | Hospital | [facility] | Min Tello MD | | | 2015 | Encounter | MED CTR XRAY [address] | [address] | | | | | [place] [address] | [place] [address] | | | | | [place] [address] | [phone] | | | | | [phone] | | | +--------+ + + + [...] + + + +---------+ + + | dexamethasone | 2 MG PO TID x 5 | 30 | 0 | 05/04/19 | | | (DECADRON) 2 MG | DAYS, THEN 2 MG PO | tablet | | 16 | 6 | | tablet | BID x 5 DAYS, THEN 2 | | | | | | | MG PO DAILY x 5 | | | | | | | DAYS | | | | | + + + +---------+ + + | FQR-MQK-Oezxoid E | Take 2 capsules by | | 0 | | | | (OMEGA-3 COMPLEX PO) | mouth Daily. | | | | 6 | + + + +---------+ + + | diclofenac | Take 75 mg by mouth | | 0 | | | | (VOLTAREN) 75 mg EC | 2 times daily. | | | | 6 | | tablet | | | | | | + + + +---------+ + + | FERROUS SULFATE PO | Take [...] + + + +---------+ + + | [place]-3 Krill Oil | Take 2 capsules by [...] | + +--------+ + + + | BARRON SOSA STATS NO | Routin | 05/05/2015 | | Results for this | | CHARGE | e | 8:12 PM | | procedure are in the | | | | PST | | results section. | + +--------+ + + + documented in this encounter Results BARRON Ceja Stats No Charge (05/05/2015 8:12 PM PST) + [...]
--- OUTSIDE RECORDS SUMMARY | ~2019-09-03 | XMS | Encounter Summary ---
Demographics + + + | Address | [address] | | | [place] [address] | + + + | Home Phone | | + + + | Preferred Language | Unknown | + + + | Marital Status | Single | + + + | Holiness Affiliation | 1077 | + + + | Race | Unknown | + + + | Ethnic Group | Unknown | + + + Author + + + | Author | [facility] | | | and [place] | + + + | Organization | [facility] | [...] + + + + + | Bruno Dya | ECON | Unknown | | + + + + + | Yung Vivar | ECON | [place] | | | | | [address] | | + + + + + | Santo Cervantes | ECON | Unknown | | + + + + + Care Team Providers + +------+ + | Care Transit Operator Name | Role | Phone | + +------+ + | Shubham Maurer MD | PCP | | + +------+ + Encounter Details +--------+ + + + + | Date | Type | Department | Care Team | Description | +--------+ + + + + | 11/14/ | Episode | [facility] [place] | Elsa Delaney, | | | 2017 | Changes | ORTHOPEDIC SURGERY | [employer]el [employer] Technician | | | | | [place] | | | | | | [place] | | | | | | [address] | | | | | | [phone] | | | +--------+ + + + [...]
--- OUTSIDE RECORDS SUMMARY | ~2019-09-03 | XMS | Encounter Summary ---
Demographics + + + | Address | [address] | | | [place] [address] | + + + | Home Phone | | + + + | Preferred Language | Unknown | + + + | Marital Status | Single | + + + | Restorationist Affiliation | 1077 | + + + | Race | Unknown | + + + | Ethnic Group | Unknown | + + + Author + + + | Author | [facility] | | | and [place] | + + + | Organization | [facility] | [...] [place] | | | | | [address] | | + + + + + | Santo Cervantes | ECON | Unknown | | + + + + + Care Team Providers + +------+ + | Care English Instructor Name | Role | Phone | [...] | | | | | | | [address] | | | | | | | Phone: | | | | | | | [phone] | | | | | | | Fax: | | | | | | | [phone] | | +--------+ + + + + + Reason for Visit +--------+ + | Reason | Comments | +--------+ + | Other | | +--------+ + Encounter Details +--------+ + + + + | Date | Type | Department | Care Team | Description | +--------+ + + + + | 01/04/ | Telephone | [facility] | Damian Escobedo | Other | | 2017 | | ORTHOPEDIC SURGERY | [address] | | | | | [address] [facility] | [address] | | | | | [place] | [place] [address] | | | | | [address] | [phone] | | | | | [phone] | | | +--------+ + + + [...]
--- OUTSIDE RECORDS SUMMARY | ~2019-09-03 | XMS | Encounter Summary ---
Demographics + + + | Address | [address] | | | [place] [address] | + + + | Home Phone | | + + + | Preferred Language | Unknown | + + + | Marital Status | Single | + + + | Yazidi Affiliation | 1077 | + + + | Race | Unknown | + + + | Ethnic Group | Unknown | + + + Author + + + | Author | [facility] | | | and [place] | + + + | Organization | [facility] | | | and [place] | [...] [place] | | | | | [address] | | + + + + + | Santo Cervantes | ECON | Unknown | | + + + + + Care Team Providers + +------+ + | Care Enterer Name | Role | Phone | + +------+ + | Shubham Maurer MD | PCP | | + +------+ + Encounter Details +--------+ + + + + | Date | Type | Department | Care Team | Description | +--------+ + + + + | 03/08/ | Hospital | [facility] | Julius Nowak | Left knee pain, | | 2019 | Encounter | [facility] | MD [address] [facility] | unspecified | | | | [address] | [place] | chronicity | | | | [place] | [address] | | | | | [address] | | | | | | [phone] | | | +--------+ + + + [...] TABLET THE | 2 | 0 | 09/21/ | | | (DURICEF) 500 mg | [...]
--- OUTSIDE RECORDS SUMMARY | ~2019-09-03 | XMS | Encounter Summary ---
Demographics + + + | Address | [address] | | | [place] [address] | + + + | Home Phone | | + + + | Preferred Language | Unknown | + + + | Marital Status | Single | + + + | Christianity Affiliation | 1077 | + + + | Race | Unknown | + + + | Ethnic Group | Unknown | + + + Author + + + | Author | [facility] | | | and [place] | + + + | Organization | [facility] | | | and [...] [place] | | | | | [address] | | + + + + + | Santo Cervantes | ECON | Unknown | | + + + + + Care Team Providers + +------+ + | Care Hydro Electric Station Operator Name | Role | Phone | + +------+ + | Shubham Maurer MD | PCP | | + +------+ + Reason for Visit +--------+ + | Reason | Comments | +--------+ + | LABS | | +--------+ + Encounter Details +--------+ + + + + | Date | Type | Department | Care Team | Description | +--------+ + + + + | 10/15/ | Telephone | [facility] | Jovan Alford | LABS | | 2015 | | NEUROSURGERY [address] | [address] | | | | | [facility] [address] | [address] | | | | | [address] | [place] [address] | | | | | [address] | [phone] | | | | | [phone] | | | +--------+ + + + [...] of this encounter Plan of Treatment + +------+--------+ + + | Name | Type | Priori | Associated Diagnoses | Order Schedule | | | | ty | | | + +------+--------+ + + | BUN | Lab | Routin | DDD (degenerative | 1 Occurrences | | | | e | disc disease), | starting 10/16/2015 | | | | | lumbar Lumbar | until 10/15/2016 | | | | | radiculopathy Other | | | | | | secondary | | | | | | scoliosis, lumbar | | | | | | region S/P lumbar | | | | | | fusion Spinal | | | | | | stenosis, lumbar | | + +------+--------+ + + | Creatinine | Lab | Routin | DDD (degenerative | 1 Occurrences | | | | e | disc disease), | starting 10/16/2015 | | | | | lumbar Lumbar | until 10/15/2016 | | | | | radiculopathy Other | | | | | | secondary | | | | | | scoliosis, lumbar | | | | | | region S/P lumbar | | | | | | fusion Spinal | | | | | | stenosis, lumbar | | + +------+--------+ + + documented as of this encounter Visit Diagnoses + + | Diagnosis | + + | DDD (degenerative disc disease), lumbar - Primary Degeneration of lumbar or | | lumbosacral intervertebral disc | + + | Lumbar radiculopathy Thoracic or lumbosacral neuritis or radiculitis, unspecified | + + | Other secondary scoliosis, lumbar region | + + | S/P lumbar fusion Arthrodesis status | + + | Spinal stenosis, lumbar Spinal stenosis, lumbar region, without neurogenic | | claudication | + + documented in this encounter"
--- OUTSIDE RECORDS SUMMARY | ~2019-09-03 | XMS | Encounter Summary ---
Demographics + + + | Address | [address] | | | [place] [address] | + + + | Home Phone | | + + + | Preferred Language | Unknown | + + + | Marital Status | Single | + + + | Synagogue Affiliation | 1077 | + + + | Race | Unknown | + + + | Ethnic Group | Unknown | + + + Author + + + | Author | [facility] | | | and [place] | + + + | Organization | [facility] | | | and [...] [place] | | | | | [address] | | + + + + + | Santo Cervantes | ECON | Unknown | | + + + + + Care Team Providers + +------+ + | Care Multiple Drum Sander Helper Name | Role | Phone | + +------+ + | Shubham Maurer MD | PCP | | + +------+ + Reason for Visit + + + | Reason | Comments | + + + | Post-op Exam | Right total knee arthroplasty | + + + Encounter Details +--------+---------+ + + + | Date | Type | Department | Care Team | Description | +--------+---------+ + + + | 10/09/ | Office | [facility] [place] | Damian Escobedo | Status post knee | | 2018 | Visit | ORTHOPEDIC SURGERY | [address] | replacement, | | | | [address] | [address] | unspecified | | | | [place], [place] | [place] [address] | laterality (Primary | | | | [address] | [phone] | Dx) | | | | [phone] | | | +--------+---------+ + + + [...] | 78.8 kg (173 lb 11.6 | 01/03/2018 2:18 PM | | | | oz) | PDT | | + + + + + | Height | 171.5 cm (5' 7.5") | 01/03/2018 2:18 PM | | | | | PDT | | + + + + + | Body Mass Index | 26.81 | 01/03/2018 2:18 PM | | | | | PDT | | + + + + + documented in this encounter Progress Notes Damian Escobedo PA-C - 01/03/2018 2:45 PM PDTFormatting of this note might be differe nt from the original. ORTHOPEDICS [address] [place] [address] FAX: [phone] Name: Raúl Day : 1950 Age: 67 y.o. Todays Date: 01/03/2018 Primary Care Provider: Shubham Maurer MD Subjective: First postoperative visit for right total knee arthroplasty performed on 12/19/17. He is be en discharged [facility] 4 he was placed postoperatively. He has a pain has b een prominent but well controlled. He is not taking any pain medication at this time. Cont inues with aspirin for blood thinning therapy. Current level pain is rated at 4 Objective: Inspection of the incision site reveals that it is his healing appropriately and quite well . No erythema, induration, swelling or signs of infection noted. No open wound or drainage is noted. Enrique over the incision site removed today in the office. Incision site was c leaned and Steri-Strips were placed over the incision site. Skin is warm and dry. Neurovas cularly intact over the incision site and right knee. Ambulates with assistance of a cane. Active range of motion today is approximately 8 80 degrees. Vitals: 01/03/18 1418 Weight: 78.8 kg (173 lb 11.6 oz) Height: 1.715 m (5' 7.5") Assessment/Plan: 1. Right total knee arthroplasty, status postop A. patient is recovering appropriately and well. No evidence of competition or infection. Active range wasapproximately 8 80 degrees with effort. Continue with pain medication a s prescribed. Continue with aspirin for blood thinning therapy for the next 2 weeks. [facility] physical therapy order was placed for the [facility] in [facility]. B. Patient will follow-up in approximately 3-4 weeks' time for reevaluation and x-rays. C. Patient was advised that should they have any questions, comments or concerns to irma ct our office. Damian Escobedo PA-C 01/03/2018 14:59 This note was dictated using the Sciona voice recognition system. There may be minor errors in grammar. documented in t his encounter Plan of Treatment Not on filedocumented as of this encounter Visit Diagnoses + + | Diagnosis | + + | Status post knee replacement, unspecified laterality - Primary | + + documented in this encounter
--- OUTSIDE RECORDS SUMMARY | ~2019-09-03 | XMS | Encounter Summary ---
Demographics + + + | Address | [address] | | | [place] [address] | + + + | Home Phone | | + + + | Preferred Language | Unknown | + + + | Marital Status | Single | + + + | Hoahaoism Affiliation | 1077 | + + + | Race | Unknown | + + + | Ethnic Group | Unknown | + + + Author + + + | Author | [facility] | | | and [place] | + + + | Organization | [facility] | | | and [place] [...] [place] | | | | | [address] | | + + + + + | Santo Cervantes | ECON | Unknown | | + + + + + Care Team Providers + +------+ + | Care Quarter Backer Name | Role | Phone | + [...] Radiology | Diagnoses | Min Tello | [facility] | | | | | Neck pain, | [address] | [address] | | | | | acute Left | [address] | [place], | | | | | arm pain | [place], | [place] | | | | | Left arm | [place] [address] | [address] | | | | | numbness | Phone: | Phone: | | | | | Other | [phone] | [phone] | | | | | osteoarthrit | Fax: | Fax: | | | | | is of spine, | [phone] | [phone] | | | | | cervical | [...] | 02/28/ | Office | [facility] [place] | Min Tello MD | 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 Min Tello MD [address] [place] [address], [address] [place] [address] FAX: NEUROSURGERY FOLLOW-UP CHIEF COMPLAINT: [...] Hernia repair Right 1980 El Vasectomy 1982 CURRENT MEDICATIONS: Current Outpatient Prescriptions Medication Sig Dispense Refill cholecalciferol (VITAMIN D-3) 1,000 units capsule Take 1,000 Units by mouth Daily. CVX-NHC-Kimmbzb E (OMEGA-3 COMPLEX PO) Take 2 capsules by mouth Daily. diclofenac (VOLTAREN) 75 mg EC tablet Take 75 mg by mouth 2 times daily. FERROUS SULFATE PO Take by mouth Daily. [place]-3 Krill Oil 500 MG CAPS Take 1 [...] has no apparent deficits with short or prison memory. CRANIAL NERVES: II: Acuity is intact. [...] Intrinsics 5 5 Ulnar Intrinsics 5 5 Building Mechanic Strength 5 5 Hip Flexion 5 5 [...] and benefits to surgical intervention with Mr. Bobo donovan in clinic. These risks included but were [...] in this encou nter Plan of Treatment Not on filedocumented as of this encounter Results MRI Cervical Spine wo Contrast (02/28/2015 3:46 PM PST) + + | Specimen | + + | | + + + + + | Narrative | Performed At | + + + | EXAM: MRI CERVICAL SPINE WO CONTRAST dated 02/28/2015 2:02 PM. | [facility] | | HISTORY: neck and left arm symptoms COMPARISON: None. | [facility] | | TECHNIQUE: Multiplanar multisequence MR imaging of the cervical spine | [facility] | | without contrast. This is performed [...] ST. | [address] | [place] | [phone] | | [facility] | | [address] | | | - IMAGING | | [...]
--- OUTSIDE RECORDS SUMMARY | ~2019-09-03 | XMS | Encounter Summary ---
Demographics + + + | Address | [address] | | | [place] [address] | + + + | Home Phone | | + + + | Preferred Language | Unknown | + + + | Marital Status | Single | + + + | Roman Catholic Affiliation | 1077 | + + + | Race | Unknown | + + + | Ethnic Group | Unknown | + + + Author + + + | Author | [facility] | | | and [place] | + + + | Organization | [facility] | | | and [place] [...] [place] | | | | | [address] | | + + + + + | Santo Cervantes | ECON | Unknown | | + + + + + Care Team Providers + +------+ + | Care Senior Systems Programmer Name | Role | Phone | + +------+ + | Atul Adkins MD | PCP | | + +------+ + Encounter Details +--------+ + + + + | Date | Type | Department | Care Team | Description | +--------+ + + + + | 11/29/ | Hospital | [facility] | Min Tello MD | Other back pain | | 2015 | Encounter | MED CTR XRAY [address] | [address] | | | | | [place] [address] | [place] [address] | | | | | [place] [address] | [phone] | | | | | [phone] | | | +--------+ + + + [...] | + + + +---------+--------+ + | TIR-CJO-Ilvkqxp E | Take 2 capsules by | [...] | + + + +---------+--------+ + | [place]-3 Krill Oil | Take 2 capsules by [...] + +--------+ + + + | XR SPINE SURVEY 2 OR | Routin | 11/29/2014 | Other back pain | Results for this | | 3 VIEWS | e | 3:04 PM | | procedure are in the | | | | PDT | | results section. | + +--------+ + + + documented in this encounter Results XR Spine Survey AP and Lateral (11/29/2014 3:04 PM PDT) + + | Specimen | + + | | + + + + + | Narrative | Performed At | + + + | EXAM: XR SPINE SURVEY AP AND LATERAL dated 11/29/2014 1:45 PM | [facility] | | HISTORY:back pain COMPARISON: None. FINDINGS:8 views of the | . [facility] | | spine. There is a levoconvex curvature in the upper thoracic | [facility] | | spine. The apex is at T3-T4. There is a compensatory gradual | - IMAGING | | curve through the thoracic spine. A focal levoconvex curvature in | | | the lumbar spine, apex at L4. Right and left lateral bending shows | | | movement in the compensatory curve through the thoracic spine. | | | Minimal movement in the upper thoracic and lower lumbar curvature. | | | No accentuated thoracic kyphosis. Retrolisthesis of L2. | | | Anterolisthesis of L4. Moderate disc narrowing at L1-L2 and | | | L2-L3. Mild disc narrowing at L5-S1. Significant facet arthrosis | | | at L4-L5 and L5-S1. No abnormal translation with flexion or | | | extension. Incidental note is made of cervical spondylosis at | | | C5-C6, C6-C7, and C7-T1. The soft tissues are unremarkable. | | | IMPRESSION - Levoconvex scoliosis in the upper thoracic spine and | | | lower lumbar spine. Spondylolisthesis and spondylosis in the | | | lumbar spine. Dictated and Signed by: Jeronimo Marr MD | | | Electronically signed: 11/29/2014 4:55 PM | | + + + + + | Procedure Note | + + | Luis, Rad Results In - 11/29/2014 4:58 PM PDT EXAM: XR SPINE SURVEY AP AND LATERAL | | dated 11/29/2014 1:45 PMHISTORY:back painCOMPARISON: None.FINDINGS:8 views of the | | spine.There is a levoconvex curvature in the upper thoracic spine. The apex is atT3-T4. | | There is a compensatory gradual curve through the thoracic spine. Afocal levoconvex | | curvature in the lumbar spine, apex at L4. Right and leftlateral bending shows movement | | in the compensatory curve through the thoracicspine. Minimal movement in the upper | | thoracic and lower lumbar curvature. Noaccentuated thoracic kyphosis.Retrolisthesis of | | L2. Anterolisthesis of L4. Moderate disc narrowing at L1-L2and L2-L3. Mild disc | | narrowing at L5-S1. Significant facet arthrosis at L4-L5and L5-S1. No abnormal | | translation with flexion or extension.Incidental note is made of cervical spondylosis at | | C5-C6, C6-C7, and C7-T1.The soft tissues are unremarkable.IMPRESSION -Levoconvex | | scoliosis in the upper thoracic spine and lower lumbar spine.Spondylolisthesis and | | spondylosis in the lumbar spine.Dictated and Signed by: Jeronimo Marr MD | | Electronically signed: 11/29/2014 4:55 PM | | | |Retrolisthesis of L2. Anterolisthesis of L4. Moderate disc narrowing at L1-L2 | |and L2-L3. Mild disc narrowing at L5-S1. Significant facet arthrosis at L4-L5 | |and L5-S1. No abnormal translation with flexion or extension. | | | |Incidental note is made of cervical spondylosis at C5-C6, C6-C7, and C7-T1. | | | |The soft tissues are unremarkable. | | | |IMPRESSION - | | | |Levoconvex scoliosis in the upper thoracic spine and lower lumbar spine. | | | |Spondylolisthesis and spondylosis in the lumbar spine. | | | |Dictated and Signed by: Jeronimo Marr MD | | Electronically signed: 11/29/2014 4:55 PM | + + + + + + + | Performing | Address | City/State/Zipcode | Phone Number | | Organization | | | | + + + + + | [place] | [address] | [place] | [phone] | | [facility] | | [address] | | | - IMAGING | | | | + + + + + documented in this encounter Visit Diagnoses + + | Diagnosis | + + | Other back pain | + + documented in this encounter"
--- OUTSIDE RECORDS SUMMARY | ~2019-09-03 | XMS | Encounter Summary ---
Demographics + + + | Address | [address] | | | [place] [address] | + + + | Home Phone [...] | Author | [facility] | | | and [place] | + + + | Organization | [facility] | | | and [place] [...] [place] | | | | | [address] | | + + + + + | Santo Cervantes | ECON | Unknown | | + + + + + Care Team Providers + +------+ + | Care Water Resources Engineer Name | Role | Phone | [...] | | [address] | [place] [address] | | | | | [place] | [phone] | | | | | [address] | | | | | | [phone] | | | +--------+---------+ + + + [...] t isabel original. Min Tello MD [address] [facility], [address] [place] [address] FAX: NEUROSURGERY FOLLOW-UP CHIEF COMPLAINT: [...] % cream Apply 1 Application topically Daily. [place]-3 Fatty Acids (OMEGA 3 PO) Take 2 [...]
--- OUTSIDE RECORDS SUMMARY | ~2019-09-03 | XMS | Encounter Summary ---
Demographics + + + | Address | [address] | | | [place] [address] | + + + | Home Phone [...] | Author | [facility] | | | and [place] | + + + | Organization | [facility] | | | and [place] [...] [place] | | | | | [address] | | + + + + + | Santo Cervantes | ECON | Unknown | | + + + + + Care Team Providers + +------+ + | Care Manager Business Operations Name | Role | Phone | + +------+ + | Atul Adkins MD | PCP | | + +------+ + Encounter Details +--------+ + + + + | Date | Type | Department | Care Team | Description | +--------+ + + + + | 09/23/ | Orders Only | [facility] [place] | Min Tello MD | Other back pain | | 2015 | | NEUROSURGERY [address] | [address] | (Primary Dx) | | | | [address] | [place] [address] | | | | | [place] | [phone] | | | | | [address] | | | | | | [phone] | | | +--------+ + + + + Social History + +-------+ +--------+------+ | Tobacco Use | Types | Packs/Day | Years | Date | | | | | Used | | + +-------+ +--------+------+ | Never Assessed | | | | | + +-------+ +--------+------+ + + + | Sex Assigned at [...] filedocumented as of this encounter Results XR Spine Survey AP [...] levoconvex curvature in the upper thoracic | [facility] | | spine. The apex is [...] + + | Performing | Address | City/State/[facility] | Phone Number | | Organization | | | | + + + + + | [facility] | [address] | [place] | [phone] | | [facility] | | [address] | | | - IMAGING | | | | + + + + + documented in this encounter Visit Diagnoses + + | Diagnosis | + + | Other back pain - Primary | + + documented in this encounter"
--- OUTSIDE RECORDS SUMMARY | ~2019-09-03 | XMS | Encounter Summary ---
Demographics + + + | Address | [address] | | | [place] [address] | + + + | Home Phone [...] | Author | [facility] | | | and [place] | + + + | Organization | [facility] | | | and [place] [...] [place] | | | | | [address] | | + + + + + | Santo Cervantes | ECON | Unknown | | + + + + + Care Team Providers + +------+ + | Care Blasting Entry Specialist Name | Role | Phone | [...] + + | 03/23/ | Telephone | [facility] | Damian Escobedo | Other | | 2017 | | ORTHOPEDIC SURGERY | [address] | | | | | [address] [facility] | [facility] | | | | | [place] | [place] [address] | | | | | [address] | [phone] | | | | | [phone] | | | +--------+ + + + [...]
--- OUTSIDE RECORDS SUMMARY | ~2019-09-03 | XMS | Encounter Summary ---
Demographics + + + | Address | [address] | | | [place] [address] | + + + | Home Phone | | + + + | Preferred Language | Unknown | + + + | Marital Status | Single | + + + | Methodist Affiliation | 1077 | + + + | Race | Unknown | + + + | Ethnic Group | Unknown | + + + Author + + + | Author | [facility] | | | and [place] | + + + | Organization | [facility] | | | and [...] [place] | | | | | [address] | | + + + + + | Santo Cervantes | ECON | Unknown | | + + + + + Care Team Providers + +------+ + | Care Hot Saw Helper Name | Role | Phone | [...] | | [address] | [place] [address] | | | | | [place] | [phone] | | | | | [address] | | | | | | [phone] | | | +--------+ + + + [...]
--- OUTSIDE RECORDS SUMMARY | ~2019-09-03 | XMS | Encounter Summary ---
Demographics + + + | Address | [address] | | | [place] [address] | + + + | Home Phone | | + + + | Preferred Language | Unknown | + + + | Marital Status | Single | + + + | Mu-Ism Affiliation | 1077 | + + + | Race | Unknown | + + + | Ethnic Group | Unknown | + + + Author + + + | Author | [facility] | | | and [place] | + + + | Organization | [facility] | | | and [...] [place] | | | | | [address] | | + + + + + | Santo Cervantes | ECON | Unknown | | + + + + + Care Team Providers + +------+ + | Care Coordinator Of Online Programs Name | Role | Phone | + +------+ + | Shubham Maurer MD | PCP | | + +------+ + Encounter Details +--------+ + + + + | Date | Type | Department | Care Team | Description | +--------+ + + + + | 06/15/ | [facility] | [facility] | Min Tello MD | Status post lumbar | | 2017 | Encounter | MED CTR XRAY [address] | [address] | spinal fusion | | | | [address] | [place] [address] | | | | | [place] [address] | [phone] | | | | | [phone] | | | +--------+ + + + [...] 2 times daily. | | | | 8 | | tablet | | | | | | + + + +---------+--------+ + | mometasone | Apply 1 Application | | 0 | | | | (ELOCON) 0.1 % cream | topically Daily. | | | | 8 | + + + +---------+--------+ + | [place]-3 Fatty | Take 2 capsules by | | 0 | | | | Acids (OMEGA 3 PO) | mouth 2 times daily. | | | | 8 | + + + +---------+--------+ + documented as of this encounter Plan of Treatment Not on filedocumented as of this encounter Procedures + +--------+ + + + | Procedure Name | Priori | Date/Time | Associated Diagnosis | Comments | | | ty | | | | + +--------+ + + + | XR LUMBAR SPINE 2 OR | Routin | 06/15/2016 | Status post lumbar | Results for this | | 3 VW | e | 2:57 PM | spinal fusion | procedure are in the | | [...] CT dated December 15, 2015. Radiographs | [facility] | | dated October 20, 2015. FINDINGS: Frontal and lateral views of the [facility] | | lumbar spine. Posterior [...] + + | [address] | [address] | [place], [place] | [phone] | | [facility] | | [address] | | | - IMAGING | | | | + + + + + documented in this encounter Visit Diagnoses + + | Diagnosis | + + | Status post lumbar spinal fusion Arthrodesis status | + + documented in this encounter"
--- OUTSIDE RECORDS SUMMARY | ~2019-09-03 | XMS | Encounter Summary ---
Demographics + + + | Address | [address] | | | [place] [address] | + + + | Home Phone | | + + + | Preferred Language | Unknown | + + + | Marital Status | Single | + + + | Rastafari Affiliation | 1077 | + + + | Race | Unknown | + + + | Ethnic Group | Unknown | + + + Author + + + | Author | [facility] | | | and [place] | + + + | Organization | [facility] | | | and [...] [place] | | | | | [address] | | + + + + + | Santo Cervantes | ECON | Unknown | | + + + + + Care Team Providers + +------+ + | Care Zmt Operator Name | Role | Phone | + +------+ + | Shubham Maurer MD | PCP | | + +------+ + Encounter Details +--------+ + + + + | Date | Type | Department | Care Team | Description | +--------+ + + + + | 03/26/ | Hospital | [facility] | Min Tello MD | | | 2014 | Encounter | MED CTR LABORATORY | [address] | | | | | [address] | [place] [address] | | | | | [place] | [phone] | | | | | [address] | | | | | | [phone] | | | +--------+ + + + [...] | + + + +---------+--------+ + | TCE-VBX-Qbguwtm E | Take 2 capsules by | [...] | + + + +---------+--------+ + | Skand[place]-3 Krill Oil | Take 2 capsules by [...]
--- OUTSIDE RECORDS SUMMARY | ~2019-09-03 | XMS | Encounter Summary ---
Demographics + + + | Address | [address] | | | [place] [address] | + + + | Home Phone | | + + + | Preferred Language | Unknown | + + + | Marital Status | Single | + + + | Zoroastrian Affiliation | 1077 | + + + | Race | Unknown | + + + | Ethnic Group | Unknown | + + + Author + + + | Author | [facility] | | | and [place] | + + + | Organization | [facility] | | | and [...] [place] | | | | | [address] | | + + + + + | Santo Cervantes | ECON | Unknown | | + + + + + Care Team Providers + +------+ + | Care Tour Bus Driver/Guide Name | Role | Phone | + [...] + + | 01/24/ | Office | [facility] | Damian Escobedo | Status post right | | 2018 | Visit | ORTHOPEDIC SURGERY | [address] | knee replacement | | | | [address] | [address] [place] | (Primary Dx) | | | | [place], [place] | [facility] [place] [address] | | | | | [address] | [phone] | | | | | [phone] | | | +--------+---------+ + + + [...] 7:24 This note was dictated using the ActiViews voice recognition system. Minor errors in grammar may have occurred. documented in t his encounter Plan of Treatment Not on filedocumented as of this encounter Visit Diagnoses + + | Diagnosis | + + | Status post right knee replacement - Primary | + + documented in this encounter
--- OUTSIDE RECORDS SUMMARY | ~2019-09-03 | XMS | Encounter Summary ---
Demographics + + + | Address | [address] | | | [place] [address] | + + + | Home Phone [...] | Author | [facility] | | | and [place] | + + + | Organization | [facility] | | | and [place] [...] [place] | | | | | [address] | | + + + + + | Santo Cervantes | ECON | Unknown | | + + + + + Care Team Providers + +------+ + | Care Saloon Keeper Name | Role | Phone | + [...] | | [address] | [place] [address] | | | | | [place] | [phone] | | | | | [address] | | | | | | [phone] | | | +--------+ + + + [...] levoconvex curvature in the upper thoracic | [facility] | | spine. The apex is [...] + + | Performing | Address | City/State/Inscription [facility] Cent[facility]ode | Phone Number | | Organization | | | | + + + + + | [facility] | [address] | [place] | [phone] | | [facility] | | [address] | | | - IMAGING | | | | + + + + + documented in this encounter Visit Diagnoses + + | Diagnosis | + + | Other back pain - Primary | + + documented in this encounter"
--- OUTSIDE RECORDS SUMMARY | ~2019-09-03 | XMS | Encounter Summary ---
Demographics + + + | Address | [address] | | | [place] [address] | + + + | Home Phone | | + + + | Preferred Language | Unknown | + + + | Marital Status | Single | + + + | Confucianist Affiliation | PRO | + + + [...] Team Providers + +------+ + | Care Cargo And Container Inspector Name | Role | Phone | [...]
--- OUTSIDE RECORDS SUMMARY | ~2019-09-03 | XMS | Encounter Summary ---
Demographics + + + | Address | [address] | | | [place] [address] | + + + | Home Phone [...] + | Author | [facility] | | | and [place] | + + + | Organization | [facility] | | | and [place] [...] [place] | | | | | [address] | | + + + + + | Santo Cervantes | ECON | Unknown | | + + + + + Care Team Providers + +------+ + | Care Offset Machine Operator Name | Role | Phone [...] | | | | | | [address] | [address] [place] | | | | | | [place], | [place], [place] | | | | | | [place] [address] | [address] Phone: | | | | | | Phone: | [phone] | | | | | | [phone] | Fax: | | | | | | Fax: | [phone] | | | | | | [phone] | | +--------+--------+ + + + + Encounter Details +--------+---------+ + + + | Date | Type | Department | Care Team | Description | +--------+---------+ + + + | 11/08/ | Office | [facility] | Julius Nowak | Primary | | 2018 | Visit | ORTHOPEDIC SURGERY | MD Liliana [address] | osteoarthritis of | | | | [address] | [place] | both knees (Primary | | | | [place], [place] | [address] | Dx) | | | | [address] | | | | | | [phone] | | | +--------+---------+ + + + [...] t from the original. Raúl Day 1950 [id number] Raúl Day is 67 y.o. male who [...] L4-5, L5-S1; Surgeon: Min Tello MD; Location: [facility] MAIN OR TOE SURGERY Right VASECTOMY 1982 No Known Allergies Current Outpatient Prescriptions Medication Sig Dispense Refill Black Pepper-Turmeric (TURMERIC COMPLEX/BLACK PEPPER) 3-500 MG CAPS Take by mouth. diclofenac (VOLTAREN) 75 mg EC tablet Take 75 mg by mouth 2 times daily. fish oil 1,000 mg capsule Take 1,000 mg by mouth 3 times daily. Misc Natural Products (GLUCOSAMINE CHOND COMPLEX/MSM PO) Take 1,500 mg by mouth. [place]-3 Fatty Acids (OMEGA 3 PO) Take 2 [...] change with prominent medial compartment wear with [id number]-br-[id number] articulation in th e medial compartment. There [...] a right total knee joint arthroplasty [facility] express financial clearance at a time that is [...]
--- OUTSIDE RECORDS SUMMARY | ~2019-09-03 | XMS | Encounter Summary ---
Demographics + + + | Address | [address] | | | [place] [address] | + + + | Home Phone [...] | [facility] | | | and [place] | + + + | Organization | [facility] | | | and [...] [place] | | | | | [address] | | + + + + + | Santo Cervantes | ECON | Unknown | | + + + + + Care Team Providers + +------+ + | Care Survey Technologist Name | Role | Phone | + [...] | | [address] | [place] [address] | | | | | [place] | [phone] | | | | | [address] | | | | | | [phone] | | | +--------+ + + + [...]
--- OUTSIDE RECORDS SUMMARY | ~2019-09-03 | XMS | Encounter Summary ---
Demographics + + + | Address | [address] | | | [place] [address] | + + + | Home Phone | | + + + | Preferred Language | Unknown | + + + | Marital Status | Single | + + + | Bahai Affiliation | 1077 | + + + | Race | Unknown | + + + | Ethnic Group | Unknown | + + + Author + + + | Author | [facility] | | | and [place] | + + + | Organization | [facility] | [...] [place] | | | | | [address] | | + + + + + | Santo Cervantes | ECON | Unknown | | + + + + + Care Team Providers + +------+ + | Care Tacking Machine Operator Name | Role | Phone [...] + + | 12/20/ | Telephone | [facility] | Damian Escobedo | Appointment | | 2017 | | ORTHOPEDIC SURGERY | [address] | | | | | [address] [facility] | [address] | | | | | [place] | [place] [address] | | | | | [address] | [phone] | | | | | [phone] | | | +--------+ + + + [...]
--- OUTSIDE RECORDS SUMMARY | ~2019-09-03 | XMS | Encounter Summary ---
Demographics + + + | Address | [address] | | | [place] [address] | + + + | Home Phone [...] | Author | [facility] | | | and [place] | + + + | Organization | [facility] | [...] [place] | | | | | [address] | | + + + + + | Santo Cervantes | ECON | Unknown | | + + + + + Care Team Providers + +------+ + | Care Highway Engineering Technician Name | Role | Phone | [...] 2017 | Changes | ORTHOPEDIC SURGERY | Pipefitter | | | | | [address] [place] | | | | | | [place] | | | | | | [address] | | | | | | [phone] | | | +--------+ + + + [...]
--- OUTSIDE RECORDS SUMMARY | ~2019-09-03 | XMS | Encounter Summary ---
Demographics + + + | Address | [address] | | | [place] [address] | + + + | Home Phone [...] Author | [facility] | | | and [place] | + + + | Organization | [facility] | | [...] [place] | | | | | [address] | | + + + + + | Santo Cervantes | ECON | Unknown | | + + + + + Care Team Providers + +------+ + | Care Spring Former Machine Name | Role | Phone | + [...] Min Tello MD | Other | | 2014 | | NEUROSURGERY [address] | [address] | | | | | [address] | [place] [address] | | | | | [place] | [phone] | | | | | [address] | | | | | | [phone] | | | +--------+ + + + [...]
--- OUTSIDE RECORDS SUMMARY | ~2019-09-03 | XMS | Encounter Summary ---
Demographics + + + | Address | [address] | | | [place] [address] | + + + | Home Phone [...] Team Providers + +------+ + | Care Dry Lumber Grader Name | Role | Phone | + [...] | | | | [address] | [place] [address] | | | | | [place], [place] | [phone] | | | | | [address] | | | | | | [phone] | | | +--------+ + + + [...]
--- OUTSIDE RECORDS SUMMARY | ~2019-09-03 | XMS | Encounter Summary ---
Demographics + + + | Address | [address] | | | [place] [address] | + + + | Home Phone | | + + + | Preferred Language | Unknown | + + + | Marital Status | Single | + + + | Muslim Affiliation | 1077 | + + + | Race | Unknown | + + + | Ethnic Group | Unknown | + + + Author + + + | Author | [facility] | | | and [place] | + + + | Organization | [facility] | [...] [place] | | | | | [address] | | + + + + + | Santo Cervantes | ECON | Unknown | | + + + + + Care Team Providers + +------+ + | Care Information Consultant Name | Role | Phone | + [...] | | [address] | [place] [address] | | | | | [place] | [phone] | | | | | [address] | | | | | | [phone] | | | +--------+ + + + [...]
--- OUTSIDE RECORDS SUMMARY | ~2019-09-03 | XMS | Encounter Summary ---
Demographics + + + | Address | [address] | | | [place] [address] | + + + | Home Phone | | + + + | Preferred Language | Unknown | + + + | Marital Status | Single | + + + | Yarsanism Affiliation | 1077 | + + + | Race | Unknown | + + + | Ethnic Group | Unknown | + + + Author + + + | Author | [facility] | | | and [place] | + + + | Organization | [facility] | | | and [...] [place] | | | | | [address] | | + + + + + | Santo Cervantes | ECON | Unknown | | + + + + + Care Team Providers + +------+ + | Care Manufacturing Weaver Name | Role | Phone | + +------+ + | Shubham Maurer MD | PCP | | + +------+ + Encounter Details +--------+ + + + + | Date | Type | Department | Care Team | Description | +--------+ + + + + | 06/03/ | Hospital | [facility] | Jovan Alford | Lumbar | | 2016 | Encounter | MED CTR XRAY [address] | [address] | radiculopathy; S/P | | | | [place] | [place] [address] | lumbar fusion | | | | [place] [address] | [place] [address] | | | | | [phone] | [phone] | | | | | | | [...] + + + +---------+ + + | AUL-QUA-Scpzrqq E | Take 2 capsules by | [...] + + + +---------+ + + | [place]-3 Krill Oil | Take 2 capsules by | | 0 | | | | 500 MG CAPS | mouth 2 times daily. | | | | 6 | + + + +---------+ + + | | Take 1-2 tablets by | 120 | 0 | 06/04/19 | | | oxyCODONE-acetaminop | mouth every [...] LUMBAR SPINE 2 [place] | Routin | 06/04/2015 | Lumbar | Results for this | | 3 VW | e | 11:24 AM | radiculopathy S/P | procedure are in the | | | | PST | lumbar fusion | results section. | + +--------+ + [...] priors FINDINGS: There is stable hardware | . [facility] | | for posterior fusion from L3 through S1 with spacer hardware at these [facility] | | levels. Moderate spondylosis is observed. [...] + | Luis, Rad Results In - 06/04/2015 11:44 AM PST [...] [address] | [place] | [phone] | | [facility] | | [address] | | | - IMAGING | | | | + + + + + documented in this encounter Visit Diagnoses + + | Diagnosis | + + | Lumbar radiculopathy Thoracic or lumbosacral neuritis or radiculitis, unspecified | + + | S/P lumbar fusion Arthrodesis status | + + documented in this encounter"
--- OUTSIDE RECORDS SUMMARY | ~2019-09-03 | XMS | Encounter Summary ---
Demographics + + + | Address | [address] | | | [place] [address] | + + + | Home Phone [...] Author | [facility] | | | and [place] | + + + | Organization | [facility] | | | and [place] [...] [place] | | | | | [address] | | + + + + + | Santo Cervantes | ECON | Unknown | | + + + + + Care Team Providers + +------+ + | Care Spectrographic Analyst Name | Role | Phone | + +------+ + | Shubham Maurer MD | PCP | | + +------+ + Encounter Details +--------+ + + + + | Date | Type | Department | Care Team | Description | +--------+ + + + + | 03/05/ | Orders Only | [facility] | Min Tello MD | Lumbar radiculopathy | | 2015 | | NEUROSURGERY [address] | [address] | (Primary Dx); Other | | | | [address] | [place] [address] | secondary | | | | [place] | [phone] | scoliosis, lumbar | | | | [address] | | region; Degenerative | | | | [phone] | | disc disease, | | | [...] on filedocumented as of this encounter Results ECG 12 [...] | | | | MARYAM VILLALPANDO MD ([id number]) | | | | | | on [...] + | [facility] | [address] | [place] | [phone] | | [facility] | | [address] | | | - IMAGING | | [...] [facility] | | | | | | [facility] | | | | | | MEDICAL | | | | | | CENTER - | | | | | | LABORATORY | | + + + + + + | RBC | 5.41 | 4.30 - 5.70 | [facility] | | | | | M/uL | [facility] | [...] | + + + + + | [facility] [facility] | [address] | [place] | [phone] | | [facility] | | [address] | | | - LABORATORY | | [...] [facility] | | | | | | [facility] | | | | | | MEDICAL | | | | | | CENTER - | | | | | | LABORATORY | | + +--------+ + + + | Creatinine | 1.08 | 0.60 - 1.30 | [facility] | | | | | mg/dL | [facility] | | | | | | MEDICAL | | | | | | CENTER - | | | | | | LABORATORY | | + +--------+ + + + | eGFR if not | >60 | >=60 | [facility] | | | | | mL/min/1.73m2 | [facility] | | | [place] | | | MEDICAL | | | [...] [address] | [place] | [phone] | | [facility] | | [address] | | | - LABORATORY | | [...]
--- OUTSIDE RECORDS SUMMARY | ~2019-09-03 | XMS | Encounter Summary ---
Demographics + + + | Address | [address] | | | [place] [address] | + + + | Home Phone | | + + + | Preferred Language | Unknown | + + + | Marital Status | Single | + + + | Gnosticism Affiliation | PRO | + + + [...] Team Providers + +------+ + | Care Website Designer Name | Role | Phone | + [...]
--- OUTSIDE RECORDS SUMMARY | ~2019-09-03 | XMS | Encounter Summary ---
Demographics + + + | Address | [address] | | | [place] [address] | + + + | Home Phone [...] Author | [facility] | | | and [place] | + + + | Organization | [facility] | | | and [...] [place] | | | | | [address] | | + + + + + | Santo Cervantes | ECON | Unknown | | + + + + + Care Team Providers + +------+ + | Care Promotions Representative Name | Role | Phone | + [...] + | 03/23/ | Telephone | [facility] | Damian Escobedo | Other | | 2017 | | ORTHOPEDIC SURGERY | [address] | | | | | [address] [facility] | [facility] | | | | | [place] | [place] [address] | | | | | [address] | [phone] | | | | | [phone] | | | +--------+ + + + [...]
--- OUTSIDE RECORDS SUMMARY | ~2019-09-03 | XMS | Encounter Summary ---
Demographics + + + | Address | [address] | | | [place] [address] | + + + | Home Phone | | + + + | Preferred Language | Unknown | + + + | Marital Status | Single | + + + | Yazdanism Affiliation | 1077 | + + + | Race | Unknown | + + + | Ethnic Group | Unknown | + + + Author + + + | Author | [facility] | | | and [place] | + + + | Organization | [facility] | | | and [place] [...] [place] | | | | | [address] | | + + + + + | Santo Cervantes | ECON | Unknown | | + + + + + Care Team Providers + +------+ + | Care Marine Surveyor Name | Role | Phone | + [...] | | spinal | [address] | HOSPITAL | | | | | stenosis | [address] | [address] | | | | | Lumbar | [address] | AVE | | | | | radiculopath | [place] | [place] | | | | | [place] | [address] | [address] | | | | | stenosis of | Phone: | Phone: | | | | | lumbar | [phone] | [phone] | | | | | region | Fax: | Fax: | | | | | Facet | [phone] | [phone] | | | | | arthropathy, | [...] + + | 06/03/ | Office | [facility] | Jovan Alford | Lumbar spinal | | 2016 | Visit | NEUROSURGERY [address] | [address] | stenosis (Primary | | | | [address] | [address] | Dx); Lumbar | | | | [place] | [place] [address] | radiculopathy; | | | | [address] | [phone] | 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 WEEK 1 If [...] your back and use good technique when picker tender helper things and bending. Electronica lly signed by STEVE Ricardo at 06/04/2015 1:38 PM PST documented in this encounter Progress Notes Jovan Alford PA - 06/04/2015 1:39 PM PSTFormatting of this note might be differen t from the original. STEVE Mills [address] [facility], [address] [place], [place] [address] FAX: NEUROSURGERY FOLLOW-UP CHIEF COMPLAINT: Chief Complaint [...] needed for Muscle spasms. 90 tablet 3 KLC-ADG-Macvbjg E (OMEGA-3 COMPLEX PO) Take 2 capsules by mouth Daily. lactulose 10 g/15 mL solution Take 30 mLs by mouth Daily as needed. 240 mL PRN [place]-3 Krill Oil 500 MG CAPS Take 1 [...] home today after being a t a fdc facility. He did start anti-inflammatories for his [...] rehabilitation and to advance with therapy as tolera becka. We discussed that we can provide pain [...] th is encounter Plan of Treatment + + +--------+ [...] priors. FINDINGS: Again seen are hardware | [facility] | | for posterior fusion from L3 through S1 with spacer hardware at these | [facility] | | levels. Slight left curvature [...] + | [address] | [address] | [place] | [phone] | | [facility] | | [address] | | | - IMAGING | | [...]
--- OUTSIDE RECORDS SUMMARY | ~2019-09-03 | XMS | Encounter Summary ---
Demographics + + + | Address | [address] | | | [place] [address] | + + + | Home Phone | | + + + | Preferred Language | Unknown | + + + | Marital Status | Single | + + + | Adventist Affiliation | 1077 | + + + | Race | Unknown | + + + | Ethnic Group | Unknown | + + + Author + + + | Author | [facility] | | | and [place] | + + + | Organization | [facility] | | | and [...] [place] | | | | | [address] | | + + + + + | Santo Cervantes | ECON | Unknown | | + + + + + Care Team Providers + +------+ + | Care Electric Trucker Name | Role | Phone | + [...] | | | | spine, | | [place], [place] | | | | | unspecified | | [address] | | | | | scoliosis | | Phone: | | | | | Scoliosis of | | [phone] | | | | | lumbar | | Fax: | | | | | spine, | | [phone] | | | | | unspecified | | | | | | | scoliosis | | | | | | | [M41.9] | | | | | | | Procedures | | | | | | | CT | | | | | | | [...] + + | 05/05/ | Hospital | [facility] | Min Tello MD | Gait abnormality | | 2016 - | Encounter | MED CTR SUR[facility] | [address] | (Primary Dx) | | | | [address] | [place] [address] | | | 05/08/ | | [place] [address] | [phone] | | | 2015 | | [phone] | | | +--------+ + + + [...] might be differen t from the original. [facility] NEUROSURGERY DISCHARGE SUMMARY Patient Name: Raúl Day [...] PO Take 2 capsules by mouth Daily. [place]-3 Krill Oil 500 MG Caps Take 1 [...] Units Take 1,000 Units by mouth Daily. HQD-CNV-Mzsrruv E (OMEGA-3 COMPLEX PO) 2 capsules Take 2 capsules by mouth Daily. [place]-3 Krill Oil 500 MG CAPS 1 capsule [...] + + + +---------+ + + | ADT-QLZ-Ilqopat E | Take 2 capsules by | [...] + + + +---------+ + + | [place]-3 Krill Oil | Take 2 capsules by [...] - 05/08/2015 10:42 [facility] Pt was wheeled out in a stable condition. Report given to Re at [facility]. Electro nically signed by Katie Delgado RN at 05/08/2015 10:44 AM Jovan Pat P A - 05/07/2015 7:42 AM PST [facility] PROGRESS NOTE Pt. Name/Age/: Raúl Day 65 y.o. 1950 Med. Record Number: [id number] Date of admission: 05/05/2015 Subjective: The patient [...] Intake/Output Summary (Last 24 hours) at 05/07/15 0710 Last data filed at 05/07/15 0500 Gross per 24 hour Intake 1260 ml [...] signed by: Jovan Alford, 05/07/2015 7:42 [facility] Derik Yu, Medical Student - 05/06/2015 7:36 [...] + | Reggie Smith Results In - 05/06/2015 10:35 AM PST XR LUMBAR SPINE 2 OR 3 VW 05/05/2015 | | 11:17 PMHISTORY: post op.COMPARISON: MRI lumbar spine 09/06/2014.FINDINGS:There has been | | interval placement of hardware for posterior fusion from C0vlrndsz S1 with spacer | | hardware at [...] | | | + +---------+ + + BARRON AlemanMehrdad Segura (05/05/2015 8:12 PM PST) + + | [...] + | Diagnosis | + + | Gait abnormality - Primary Abnormality of gait | + + documented in this encounter Administered Medications + +--------+ +-------+------+------+ | Medication Order | MAR | Action | Dose | Rate | Site | | | Action | Date | | | | + +--------+ +-------+------+------+ | bisacodyl (DULCOLAX) | Given | 05/07/ | 10 mg | | | | suppository 10 mg 10 mg, Rectal, | | 16 1:43 | | | | | DAILY PRN, Constipation, | | PM PST | | | | | Starting 05/05/15 at 2300, If | | | | | | | all other bowel medications | | | | | | | ineffective x 24 hours or not | | | | | | | ordered, Post-op/Phase II | | | | | | + +--------+ +-------+------+------+ +---+---+ | | | +---+---+ + +-------+ + +---+---+ | calcium carbonate (TUMS) | Given | 05/06/19 | 1,000 mg | | | | chewable tablet 1,000 mg 1,000 | | 16 11:01 | | | | | mg, Oral, EVERY 2 HOURS PRN, | | AM PST | | | | | Indigestion, Starting 05/05/15 | | | | | | | at 2300, Post-op/Phase II | | | | | | + +-------+ + +---+---+ +---+---+ | | | +---+---+ + +---------+ +-----+-------+---+ | ceFAZolin in dextrose (ANCEF) | New Bag | 05/06/19 | 2 g | 100 | | | IVPB 2 g 2 g, Intravenous, | | 16 6:34 | | mL/hr | | | Administer over 30 Minutes, EVERY | | AM PST | | | | | 8 HOURS INTERVAL, First dose on | | | | | | | 05/05/15 at 2330, For 2 doses, | | | | | | | Start 8 hours after previous | | | | | | | dose. Last dose to be given | | | | | | | within 24 hours of surgery end | | | | | | | time., Post-op/Phase II | | | | | | + +---------+ +-----+-------+---+ +---------+ +-----+-------+---+ | New Bag | 05/05/19 | 2 g | 100 | | | | 16 11:29 | | mL/hr | | | | PM PST | | | | +---------+ +-----+-------+---+ +---+---+ | | | +---+---+ + +-------+ +-------+---+---+ | cyclobenzaprine (FLEXERIL) | Given | 05/06/19 | 10 mg | | | | tablet 10 mg 10 mg, Oral, EVERY | | 16 5:09 | | | | | 8 HOURS PRN, Muscle spasms, | | PM PST | | | | | Starting 05/05/15 at 2300, Use | | | | | | | if methocarbamol ineffective or | | | | | | | not ordered., Post-op/Phase II | | | | | | + +-------+ +-------+---+---+ +-------+ +-------+---+---+ | Given | 05/06/19 | 10 mg | | | | | 16 9:42 | | | | | | AM PST | | | | +-------+ +-------+---+---+ +---+---+ | | | +---+---+ + +-------+ +--------+---+---+ | docusate sodium (COLACE) | Given | 05/07/19 | 100 mg | | | | capsule 100 mg 100 mg, Oral, 2 | | 16 10:19 | | | | | TIMES DAILY PRN, Constipation, | | AM PST | | | | | Starting 05/05/15 at 2300, | | | | | | | First line agent for | | | | | | | constipation, Post-op/Phase II | | | | | | + +-------+ +--------+---+---+ +-------+ +--------+---+---+ | Given | 05/06/19 | 100 mg | | | | | 16 8:49 | | | | | | AM PST | | | | +-------+ +--------+---+---+ +---+---+ | | | +---+---+ + +-------+ +--------+---+---+ | fentaNYL injection 25-50 mcg | Given | 05/05/19 | 50 mcg | | | | 25-50 mcg, Intravenous, EVERY 5 | | 16 9:13 | | | | | MIN PRN, Pain, Starting Mon | | PM PST | | | | | 05/05/15 at 1947, Maximum total | | | | | | | dose 250 mcg. PACU IV Narcotic | | | | | | | Priority: Only use fentanyl for | | | | | | | immediate post-op pain (one dose) | | | | | | | or breakthrough pain when any | | | | | | | other IV narcotics ordered have | | | | | | | been ineffective (if ordered). | | | | | | | If both morphine and | | | | | | | hydromorphone are ordered, use | | | | | | | morphine first, and use | | | | | | | hydromporphone if morphine | | | | | | | ineffective., Recovery/Phase I | | | | | | + +-------+ +--------+---+---+ +---+---+ | | | +---+---+ + +-------+ +--------+---+---+ | HYDROmorphone (DILAUDID) | Given | 05/05/19 | 0.5 mg | | | | injection 0.2-0.5 mg 0.2-0.5 mg, | | 16 9:52 | | | | | Intravenous, EVERY 5 MIN PRN, | | PM PST | | | | | Pain, Starting 05/05/15 at | | | | | | | 1947, Maximum total dose 4 mg. | | | | | | | PACU IV Narcotic Priority: Only | | | | | | | use fentanyl for immediate | | | | | | | post-op pain (one dose) or | | | | | | | breakthrough pain when any other | | | | | | | IV narcotics ordered have been | | | | | | | ineffective (if ordered). If | | | | | | | both morphine and hydromorphone | | | | | | | are ordered, use morphine first, | | | | | | | and use hydromporphone if | | | | | | | morphine ineffective., | | | | | | | Recovery/Phase I | | | | | | + +-------+ +--------+---+---+ +-------+ +--------+---+---+ | Given | 05/05/19 | 0.5 mg | | | | | 16 9:42 | | | | | | PM PST | | | | +-------+ +--------+---+---+ | Given | 05/05/19 | 0.5 mg | | | | | 16 9:33 | | | | | | PM [...] | | +---+---+ + +-------+ +--------+---+---+ | lactulose liquid 30 mL 30 mL, | Given | 05/07/19 | 30 mLs | | | | Oral, DAILY PRN, Constipation, | | 16 1:43 | | | | | Starting 05/05/15 at 2300, If | | PM PST | | | | | docusate, senna, and polyethylene | | | | | | | glycol ineffective x 24 hours or | | | | | | | not ordered, Post-op/Phase II | | | | | | + +-------+ +--------+---+---+ +---+---+ | | | +---+---+ + +-------+ +--------+---+---+ | magnesium hydroxide (MILK OF | Given | 05/07/19 | 30 mLs | | | | MAGNESIA) 400 mg/5 mL suspension | | 16 1:43 | | | | | 30 mL 30 mL, Oral, NIGHTLY PRN, | | PM PST | | | | | Constipation, Starting Wed | | | | | | | 05/07/15 at 0000, If docusate, | | | | | | | senna, and polyethylene glycol | | | | | | | ineffective x 24 hours or not | | | | | | | ordered, Post-op/Phase II | | | | | | + +-------+ +--------+---+---+ +---+---+ | | | +---+---+ + +---------+ +--------+--------+---+ | methocarbamol (ROBAXIN) 750 mg | New Bag | 05/06/19 | 750 mg | 143.3 | | | in sodium chloride 0.9% 100 mL | | 16 8:47 | | mL/hr | | | IVPB 750 mg, Intravenous, | | AM PST | | | | | Administer over 45 Minutes, EVERY | | | | | | | 6 HOURS INTERVAL, First dose on | | | | | | | 05/05/15 at 2100, For 3 doses, | | | | | | | Post-op/Phase II | | | | | | + +---------+ +--------+--------+---+ +---------+ +--------+--------+---+ | New Bag | 05/06/19 | 750 mg | 143.3 | | | | 16 2:24 | | mL/hr | | | | AM PST | | | | +---------+ +--------+--------+---+ | New Bag | 05/05/19 | 750 mg | 143.3 | | | | 16 9:09 | | mL/hr | | | | PM PST | | | | +---------+ +--------+--------+---+ +---+---+ | | | +---+---+ + +-------+ +-------+---+ + | methylnaltrexone (RELISTOR) | Given | 05/07/19 | 12 mg | | Abdomen- | | injection 12 mg 12 mg, | | 16 4:18 | | | LLQ | | Subcutaneous, ONCE PRN, | | PM PST | | | | | Constipation, Unrelieved by | | | | | | | Miralax, milk of magnesia, and | | | | | | | bisacodyl suppository, Starting | | | | | | | 05/07/15 at 1200, For 1 dose, | | | | | | | Call pharmacy if needed, | | | | | | + +-------+ +-------+---+ + +---+---+ | | | +---+---+ + +-------+ +-------+---+---+ | metoclopramide (REGLAN) 5 mg/mL | Given | 05/07/19 | 10 mg | | | | injection 10 mg 10 mg, | | 16 2:54 | | | | | Intravenous, EVERY 4 HOURS PRN, | | PM PST | | | | | Nausea, Vomiting, Starting Mon | | | | | | | 05/05/15 at 2209, Use if | | | | | [...] +-------+ +-------+---+---+ +-------+ +-------+---+---+ | Given | 05/07/19 | 10 mg | | | | | 16 6:32 | | | | | | AM PST | | | | +-------+ +-------+---+---+ | Given | 05/06/19 | 10 mg | | | | | 16 11:04 | | | | | | PM PST | | | | +-------+ +-------+---+---+ +---+---+ | | | +---+---+ + +-------+ +------+---+---+ | morphine injection 2-4 mg 2-4 | Given | 05/07/19 | 4 mg | | | | mg, Intravenous, EVERY 2 HOURS | | 16 6:57 | | | | | PRN, Pain, Starting 05/05/15 at | | PM PST | | | | | 2300, Slow IV push, not faster | | | | | | | than 2 mg/minute. If ineffective | | | | | | | or not tolerated, use | | | | | | | hydromorphone IV if ordered., | | | | | | | Post-op/Phase II | | | | | | + +-------+ +------+---+---+ +-------+ +------+---+---+ | Given | 05/07/19 | 2 mg | | | | | 16 1:43 | | | | | | PM PST | | | | +-------+ +------+---+---+ | Given | 05/05/19 | 2 mg | | | | | 16 11:29 | | | | | | PM PST | | | | +-------+ +------+---+---+ +---+---+ | | | +---+---+ + +-------+ +------+---+---+ | ondansetron (ZOFRAN) injection | Given | 05/05/19 | 4 mg | | | | 4 mg 4 mg, Intravenous, ONCE | | 16 9:15 | | | | | PRN, Nausea, Starting 05/05/15 | | PM PST | | | | | at 1947, For 1 dose, | | | | | | | Recovery/Phase I | | | | | | + +-------+ +------+---+---+ +---+---+ | | | +---+---+ + +-------+ +------+---+---+ | ondansetron (ZOFRAN) injection | Given | 05/07/19 | 4 mg | | | | 4 mg 4 mg, Intravenous, EVERY 6 | | 16 6:57 | | | | | HOURS PRN, Nausea, Vomiting, | | PM PST | | | | | Starting 05/05/15 at 2300, | | | | | | | First line agent Use PO option | | | | | | | unless NPO status or unable to | | | | | | | tolerate, Post-op/Phase II | | | | | | + +-------+ +------+---+---+ +-------+ +------+---+---+ | Given | 05/07/19 | 4 mg | | | | | 16 1:43 | | | | | | PM PST | | | | +-------+ +------+---+---+ +---+---+ | | | +---+---+ + +-------+ +---------+---+---+ | oxyCODONE-acetaminophen | Given | 05/08/19 | 2 | | | | (PERCOCET) 5-325 mg per tablet | | 16 9:52 | tablets | | | | 1-2 tablet 1-2 tablet, Oral, | | AM PST | | | | | EVERY 4 HOURS PRN, Pain, Starting | | | | | | | 05/05/15 at 2300, | | | | | | | Post-op/Phase II | | | | | | + +-------+ +---------+---+---+ +-------+ +---------+---+---+ | Given | 05/07/19 | 2 | | | | | 16 3:35 | tablets | | | | | AM PST | | | | +-------+ +---------+---+---+ | Given | 05/06/19 | 2 | | | | | 16 11:21 | tablets | | | | | PM PST | | | | +-------+ +---------+---+---+ +---+---+ | | | +---+---+ + +-------+ +------+---+---+ | polyethylene glycol (MIRALAX) | Given | 05/07/19 | 17 g | | | | powder 17 g 17 g, Oral, DAILY | | 16 10:19 | | | | | PRN, Constipation, Starting Mon | | AM PST | | | | | 05/05/15 at 2300, If docusate and | | | | | | | senna ineffective or not ordered, | | | | | | | Post-op/Phase II | | | | | | + +-------+ +------+---+---+ +---+---+ | | | +---+---+ + +---------+ +---------+---+ + | scopolamine (TRANSDERM-SCOP) 1 | Patch | 05/05/19 | 1 patch | | Ear-Behi | | mg/3 days 1 patch 1 patch, | Applied | 16 2:19 | | | nd Left | | Transdermal, ONCE PRN, For | | PM PST | | | | | history of Post-Operative Nausea | | | | | | | that has not been resolved by | | | | | | | more modern anesthetics., | | | | | | | Starting 05/05/15 at 1316, For | | | | | | | 1 dose, Apply to mastoid process, | | | | | | | Pre-op | | | | | | + +---------+ +---------+---+ + +---+---+ | | | +---+---+ + +-------+ +--------+---+---+ | senna (SENOKOT) tablet 8.6 mg | Given | 05/07/19 | 8.6 mg | | | | 8.6 mg, Oral, 2 TIMES DAILY PRN, | | 16 10:19 | | | | | Constipation, Starting 05/05/15 | | AM PST | | | | | at 2300, If docusate ineffective | | | | | | | or not ordered, Post-op/Phase II | | | | | | + +-------+ +--------+---+---+ +-------+ +--------+---+---+ | Given | 05/06/19 | 8.6 mg | | | | | 16 8:49 | | | | | | AM PST | | | | +-------+ +--------+---+---+ +---+---+ | | | +---+---+ + +-------+ +-------+---+---+ | simethicone (MYLICON) chewable | Given | 05/06/19 | 80 mg | | | | tablet 80 mg 80 mg, Oral, 4 | | 16 5:08 | | | | | TIMES DAILY PRN, Gas, Starting | | PM PST | | | | | 05/06/15 at 1152 | | | | | | + +-------+ +-------+---+---+ +-------+ +-------+---+---+ | Given | 05/06/19 | 80 mg | | | | | 16 12:58 | | | | | | PM PST | | | | +-------+ +-------+---+---+ +---+---+ | | | +---+---+ + +-------+ +-------+---+---+ | simethicone (MYLICON) chewable | Given | 05/07/19 | 80 mg | | | | tablet 80 mg 80 mg, Oral, ONCE, | | 16 4:58 | | | | | 05/07/15 at 0515, For 1 dose | | AM PST | | | | + +-------+ +-------+---+---+ +---+---+ | | | +---+---+ + +-------+ +-------+---+---+ | simethicone (MYLICON) chewable | Given | 05/07/19 | 80 mg | | | | tablet 80 mg 80 mg, Oral, 4 | | 16 7:00 | | | | | TIMES DAILY PRN, Ari, Starting | | PM PST | | | | | 05/07/15 at 0453 | | | | | | + +-------+ +-------+---+---+ +-------+ +-------+---+---+ | Given | 05/07/19 | 80 mg | | | | | 16 6:40 | | | | | | AM PST | | | | +-------+ +-------+---+---+ +---+---+ | | | +---+---+ + +-------+ +--------+---+---+ | tamsulosin (FLOMAX) capsule 0.4 | Given | 05/08/19 | 0.4 mg | | | | mg 0.4 mg, Oral, DAILY AFTER | | 16 9:47 | | | | | BREAKFAST, First dose on Tue | | AM PST | | | | | 05/06/15 at 0900, Do not open | | | | | | | capsule., Post-op/Phase II | | | | | | + +-------+ +--------+---+---+ +-------+ +--------+---+---+ | Given | 05/07/19 | 0.4 mg | | | | | 16 10:18 | | | | | | AM PST | | | | +-------+ +--------+---+---+ | Given | 05/06/19 | 0.4 mg | | | | | 16 8:47 | | | | | | AM PST | | | | +-------+ +--------+---+---+ +---+---+ | | | +---+---+ documented in this encounter
--- OUTSIDE RECORDS SUMMARY | ~2019-09-03 | XMS | Encounter Summary ---
Demographics + + + | Address | [address] | | | [place] [address] | + + + | Home Phone [...] + + + | Author | [facility] | | | and [place] | + + + | Organization | [facility] | | | and [...] [place] | | | | | [address] | | + + + + + | Santo Cervantes | ECON | Unknown | | + + + + + Care Team Providers + +------+ + | Care Business Development Specialist Name | Role | Phone | [...] | | [address] | [place] [address] | osteoarthritis of | | | | [place] | [phone] | spine, cervical | | | | [address] | | region | | | | [phone] | | | +--------+ + + + [...]
--- OUTSIDE RECORDS SUMMARY | ~2019-09-03 | XMS | Encounter Summary ---
Demographics + + + | Address | [address] | | | [place] [address] | + + + | Home Phone [...] + + | Author | [facility] | | | and [place] | + + + | Organization | [facility] | | | and [place] [...] [place] | | | | | [address] | | + + + + + | Santo Cervantes | ECON | Unknown | | + + + + + Care Team Providers + +------+ + | Care Monkey Keeper Name | Role | Phone | [...] | | | | | | | [place] | | | | | | [...] + + | 12/19/ | Anesthesia | [facility] | Abeba Han | | | 2017 | Event | MED CTR OR INTRA OP | DO [address] | | | | | [address] | [address] [facility] | | | | | [place] | [place] [address] | | | | | [address] | [phone] | | | | | [phone] | | | +--------+ + + + [...] +----+---+ + + | | 1 | [place] | | | | 2 | 43-degrees | | | | 2 | | | | | 6 | | | +----+---+ + + | | 1 | First | | | | 2 | Inc/Proc St | | | | 2 | | | | | 9 | | | +----+---+ + + | | 1 | [place] off | | | | 3 | [...] 12/20/17 0425 by | | eral | [id number] catheter system; | Ying Mcgovern, | Francoise [...] Performed At | + + + | bAeba Han DO 12/19/2017 12:10 Perineural Procedure | [...]
--- OUTSIDE RECORDS SUMMARY | ~2019-09-03 | XMS | Encounter Summary ---
Demographics + + + | Address | [address] | | | [place] [address] | + + + | Home Phone [...] | Author | [facility] | | | and [place] | + + + | Organization | [facility] | | | and [...] [place] | | | | | [address] | | + + + + + | Santo Cervantes | ECON | Unknown | | + + + + + Care Team Providers + +------+ + | Care Front End Developer Designer Name | Role | Phone | [...] | | | | | | [place] [address] | [address] Phone: | | | | | | Phone: | [phone] | | | | | | [phone] | Fax: | | | | | | Fax: | [phone] | | | | | | [phone] | | +--------+--------+ + + + + Encounter Details +--------+---------+ + + + | Date | Type | Department | Care Team | Description | +--------+---------+ + + + | 11/08/ | Office | [facility] | Julius Nowak | Primary | | 2018 | Visit | ORTHOPEDIC SURGERY | MD Liliana [address] | osteoarthritis of | | | | [address] | [place] | both knees (Primary | | | | [place], [place] | [id number] | Dx) | | | | [address] | | | | | | [phone] | | | +--------+---------+ + + + [...] t from the original. Raúl Day 1950 [id number] Raúl Day is 67 y.o. male who [...] L4-5, L5-S1; Surgeon: Min Tello MD; Location: [facility] MAIN OR TOE SURGERY Right VASECTOMY [...] COMPLEX/MSM PO) Take 1,500 mg by mouth. [facility]-3 Fatty Acids (OMEGA 3 PO) Take 2 [...] change with prominent medial compartment wear with [id number] articulation in th e medial compartment. There [...] a right total knee joint arthroplasty f [facility] financial clearance at a time that is [...]
--- OUTSIDE RECORDS SUMMARY | ~2019-09-03 | XMS | Encounter Summary ---
Demographics + + + | Address | [address] | | | [place] [address] | + + + | Home Phone | | + + + | Preferred Language | Unknown | + + + | Marital Status | Single | + + + | Oriental Orthodox Affiliation | 1077 | + + + | Race | Unknown | + + + | Ethnic Group | Unknown | + + + Author + + + | Author | [facility] | | | and [place] | + + + | Organization | [facility] | | | and [place] [...] [place] | | | | | [address] | | + + + + + | Santo Cervantes | ECON | Unknown | | + + + + + Care Team Providers + +------+ + | Care Line Installation Supervisor Name | Role | Phone | [...] | | [address] | [place] [address] | | | | | [place] | [phone] | | | | | [address] | | | | | | [phone] | | | +--------+ + + + [...]
--- OUTSIDE RECORDS SUMMARY | ~2019-09-03 | XMS | Encounter Summary ---
Demographics + + + | Address | [address] | | | [place] [address] | + + + | Home Phone [...] Author | [facility] | | | and [place] | + + + | Organization | [facility] | | | and [place] [...] [place] | | | | | [address] | | + + + + + | Santo Cervantes | ECON | Unknown | | + + + + + Care Team Providers + +------+ + | Care Loss Prevention Research Engineer Name | Role | Phone | [...] | +--------+ + + + + | 05/08/ | Telephone | [facility] | Damian Escobedo | Other | | 2018 | | ORTHOPEDIC SURGERY | [address] | | | | | [address] [facility] | [place] | | | | | [place] | [place] [address] | | | | | [address] | [phone] | | | | | [phone] | | | +--------+ + + + [...]
--- OUTSIDE RECORDS SUMMARY | ~2019-09-03 | XMS | Encounter Summary ---
Demographics + + + | Address | [address] | | | [place] [address] | + + + | Home Phone [...] | Author | [facility] | | | and [place] | + + + | Organization | [facility] | | | and [place] [...] [place] | | | | | [address] | | + + + + + | Santo Cervantes | ECON | Unknown | | + + + + + Care Team Providers + +------+ + | Care C4 Planner Name | Role | Phone | + [...] + + | 12/15/ | Office | [facility] | Julius Nowak | Pre-op testing | | 2018 | Visit | ORTHOPEDIC SURGERY | MD Liliana [address] [facility] | (Primary Dx); | | | | [address] [facility] | [facility] | Primary | | | | [place] | [address] | osteoarthritis of | | | | [address] | | both knees; Nocturia | | | | [phone] | | | +--------+---------+ + + + [...] - 1.030 | [facility] | | | [place], | | | [facility] | | [...] [address] | [place] | [phone] | | [facility] | | [address] | | | - LABORATORY | | [...] [address] | [place] | [phone] | | [facility] | | [address] | | | - LABORATORY | | [...]
--- OUTSIDE RECORDS SUMMARY | ~2019-09-03 | XMS | Encounter Summary ---
Demographics + + + | Address | [address] | | | [place] [address] | + + + | Home Phone | | + + + | Preferred Language | Unknown | + + + | Marital Status | Single | + + + | Scientologist Affiliation | [id number] | + + + | Race | Unknown | + + + | Ethnic Group | Unknown | + + + Author + + + | Author | [facility] | | | and [place] | + + + | Organization | [facility] | | | and [place] [...] [place] | | | | | [address] | | + + + + + | [place] | ECON | Unknown | | + + + + + Care Team Providers + +------+ + | Care Mannequin Decorator Name | Role | Phone | + +------+ + | Shubham Maurer MD | PCP | | + +------+ + Encounter Details +--------+ + + + + | Date | Type | Department | Care Team | Description | +--------+ + + + + | 06/15/ | Hospital | [facility] | Jovan Alford | Canceled (OTHER) | | 2016 | Encounter | [facility] [address] | | | | | [place] | [address] | | | | | [place] [address] | [place] [address] | | | | | [phone] | [phone] | | | | | | | [...] | + + + +---------+--------+ + | [place]-3 Fatty | Take 2 capsules by | | 0 | | | | Acids (OMEGA 3 PO) | mouth 2 times daily. | | | | 8 | + + + +---------+--------+ + documented as of this encounter Plan of Treatment Not on filedocumented as of this encounter Visit Diagnoses Not on filedocumented in this encounter"
--- OUTSIDE RECORDS SUMMARY | ~2019-09-03 | XMS | Encounter Summary ---
Demographics + + + | Address | [address] | | | [place] [address] | + + + | Home Phone [...] Author | [facility] | | | and [place] | + + + | Organization | [facility] | | | and [place] [...] [place] | | | | | [address] | | + + + + + | Santo Cervantes | ECON | Unknown | | + + + + + Care Team Providers + +------+ + | Care Manager Mortgage Name | Role | Phone | + +------+ + | Shubham Maurer MD | PCP | | + +------+ + Encounter Details +--------+ + + + + | Date | Type | Department | Care Team | Description | +--------+ + + + + | 02/28/ | Hospital | [facility] | Min Tello MD | Bilateral low back | | 2015 | Encounter | MED CTR XRAY [address] | [address] | pain, with sciatica | | | | [address] [address] | [place] [address] | presence unspecified | | | | [place] [address] | [phone] | | | | | [phone] | | | +--------+ + + + [...] | + + + +---------+--------+ + | OXP-MLD-Qvgssgv E | Take 2 capsules by | [...] | + + + +---------+--------+ + | [place]-3 Krill Oil | Take 2 capsules by [...] of this encounter Plan of Treatment + +---------+--------+ + + | Name | Type | Priori | Associated Diagnoses | Order Schedule | | | | ty | | | + +---------+--------+ + + | XR Lumbar Spine 4 + | Imaging | Routin | Bilateral low back | 1 Occurrences | | Vw | | e | pain, with sciatica | starting 02/28/2015 | | | | | presence | until 02/28/2015 | | | | | unspecified | | + +---------+--------+ + + documented as of this encounter Visit Diagnoses + + | Diagnosis | + + | Bilateral low back pain, with sciatica presence unspecified | + + documented in this encounter"
--- OUTSIDE RECORDS SUMMARY | ~2019-09-03 | XMS | Clinical Summary ---
Demographics + + + | Address | [address] | | | [place] [address] | + + + | Home Phone [...] | Author | [facility] | | | and [place] | + + + | Organization | [facility] | | [...] [place] | | | | | [address] | | + + + + + | Santo Cervantes | ECON | Unknown | | + + + + + Care Team Providers + +------+ + | Care Rn Plasma Center Name | Role | Phone | + [...] TABLET THE | 2 | 0 | 06/ | | Activ | | (DURICEF) 500 mg | MORNING OF DENTAL | capsule | | 10/14 | | e | | capsule | PROCEDURE AND ONE 12 | | | 19 | | | | | HOURS LATER | | | | | | + + + +---------+------+------+-------+ Active Problems + + + | Problem | Noted Date | + + + | Spondylosis of lumbar [...] | 6 | + + + + Immunizations + + + + | Name [...] Comments | + + +------+ + | Prostate cancer | Father | | | + + +------+ + | Heart disease | Mother | | | + + +------+ + | Stroke | Mother | | | + + +------+ + | Cancer | Paternal | | | | | Grandfath | | | | | er | | | + + +------+ + + +------+ + + | Relation | Name | Status | Comments | + +------+ + + | Child | | Alive | | + +------+ + + | Father | | | cancer | + +------+ + + | Mother | | Alive | | + +------+ + + | Paternal Grandfather | | | | + +------+ + + Social [...] recent travel history available. | + + Last Filed Vital Signs + [...] Weight | 78.5 kg (173 lb) | 03/08/2019 2:38 PM | | | | | PST | | + + + + + | Height | 171.5 cm (5' 7.5") | 03/08/2019 2:38 PM | | | | | PST | | + + + + + | Body Mass Index | 26.7 | 03/08/2019 2:38 PM | | | | | PST | | + + + + + Plan of Treatment + + + + + | Health Maintenance | Due Date | Last Done | Comments | + + + + [...] + + + + | Vaccine: Zoster (3 | | 01/29/2019, 07/30/2008 | | | of 3) | 9 | | | + + + + + | Vaccine: | | 08/20/2017, 11/09/2011, | | | Dtap/Tdap/Td (4 - | 8 | 05/30/2006 | | | Td) | | | | + + + + + | Vaccine: | Completed | 12/24/2013, 07/30/2013 | | | Pneumococcal 65+ | | | | + + + + + | Vaccine: Influenza | Completed | 01/19/2019, 12/17/2016, | | | | | 12/06/2014, Additional history | | | | | exists [...] | | 04/27/ | 00-111 | | [id number]: Qty: 2 | c | Knee | ZIMM | | 2022 | 2-140- | | on 12/19/2017 by Eliu, | | | | | | 01 / | | Julius Ford MD at [facility] | | | | | | /[id number] | | [facility] | | | | | | 767 | | CENTER | | | | | | | + +--------+--------+ +--------+--------+--------+ | Imp Knee Fem Stem Rt Sz9 - | Generi | Right: | NORAH - | | 02/24/ | 42-502 | | [id number]: Qty: 1 | c | Knee | ZIMM | | 2026 | 6-066- | | on 12/19/2017 by Eliu, | | | | | | 02 / | | Julius Ford MD at [facility] | | | | | | /[id number] | | [facility] | | | | | | 975 | | CENTER | | | | | | | + +--------+--------+ +--------+--------+--------+ | Imp Knee Tib 5deg Rt Szf - | Generi | Right: | NORAH - | | 08/25/ | 42-532 | | [id number]: Qty: 1 | c | Knee | ZIMM | | 2027 | 0-075- | | on 12/19/2017 by Eliu, | | | | | | 02 / | | Julius Ford MD at [facility] | | | | | | /[id number] | | [facility] | | | | | | 098 | | CENTER | | | | | | | + +--------+--------+ +--------+--------+--------+ | Imp Knee Ptela Polyeth 35mm - | Generi | Right: | NORAH - | | 09/24/ | 42-540 | | [id number]: Qty: 1 | c | Knee | ZIM | | 2025 | 0-000- | | on 12/19/2017 by Eliu, | | | | | | 35 / | | Julius Ford MD at [facility] | | | | | | /[id number] | | [facility] | | | | | | 384 | | CENTER | | | | | | | + +--------+--------+ +--------+--------+--------+ | Imp Knee Surf [facility] R 11 | Generi | Right: | NORAH - | | 12/25/ | 42-522 | | 8-11ef - [id number]: | c | Knee | ZIMM | | 2021 | 1-008- | | Qty: 1 on 12/19/2017 by | | | | | | 11 / | | Julius Nowak MD at | | | | | | /[id number] | | [facility] | | | | | | 859 | | [facility] | | | | | | | + +--------+--------+ +--------+--------+--------+ | Chips Can 1.7-10mm 30cc - | | Spine | MEDTRONIC - | | 09/10/ | [id number] | | SnaImplanted: Qty: 1 on | | Lumbar | MEDT | | 2020 | | | 05/05/2015 by Min Tello, | | | | | | /[id number] | | at [facility] | | | | | | 1-022 | | [facility] | | | | | | / | + +--------+--------+ +--------+--------+--------+ | Yonatan Ti Prebent Lordtc 95mm - | | Spine | NUVASIVE - | | | [id number] | | [id number]: Qty: 2 on | | Lumbar | NVSV | | | 5 / / | | 05/05/2015 by Min Tello | | | | | | | | at [facility] | | | | | | | | [facility] | | | | | | | + +--------+--------+ +--------+--------+--------+ | Screw Polyax Prcpt 7.5x50mm - | | Spine | NUVASIVE - | | | [id number] | | [id number]: Qty: 4 | | Lumbar | NVSV | | | 0A / / | | on 05/05/2015 by Min Tello | | | | | | | | MD Nazia at [facility] | | | | | | | | [facility] | | | | | | | + +--------+--------+ +--------+--------+--------+ | Screw Prcpt 8.5x45mm - | | Spine | NUVASIVE - | | | [id number] | | [id number]: Qty: 2 on | | Lumbar | NVSV | | | 5A / / | | 05/05/2015 by Min Tello, | | | | | | | | at [facility] | | | | | | | | [facility] | | | | | | | + +--------+--------+ +--------+--------+--------+ | Putty [place] 10cc Dbm - | | Spine | OSTEOTECH - | | 01/14/ | [id number] | | [id number]: Qty: 1 | | Lumbar | OSTT | | 2017 | /[id number] | | on 05/05/2015 by Min Tello | | | | | | 9-033 | | MD Nazia at [facility] | | | | | | / | | [facility] | | | | | | | + +--------+--------+ +--------+--------+--------+ | Graft Infuse Bone Kit Xxs - | | Spine | SOFAMOR | | 12/03/ | [id number] | | SnaImplanted: Qty: 1 on | | Lumbar | DANEK - DIV | | 2016 | 0 / | | 05/05/2015 by Min Tello, | | | [employer] | | | /[id number] | | at [facility] | | | - SFDK | | | [id number] | | [facility] | | | | | | | + +--------+--------+ +--------+--------+--------+ | Graft Infuse Bone Kit Xs - | | Spine | SOFAMOR | | 02/02/ | [id number] | | SnaImplanted: Qty: 1 on | | Lumbar | DANEK - DIV | | 2015 | 0 / | | 05/05/2015 by Min Tello, | | | [employer] | | | /[id number] | | MD at [facility] | | | - SFDK | | | 47AAD | | [facility] | | | | | | | + +--------+--------+ +--------+--------+--------+ | Imp Spn Intbdy Xlw | | Spine | NUVASIVE - | | | [id number] | | [id number] - | | Lumbar | NVSV | | | 0 / / | | [id number]: Qty: 1 on | | | | | | | | 05/05/2015 by Min Tello, | | | | | | | | at [facility] | | | | | | | | [facility] | | | | | | | + +--------+--------+ +--------+--------+--------+ | Imp Spn Intbdy Xlw | | Spine | NUVASIVE - | | | [id number] | | [id number] - | | Lumbar | NVSV | | | 5 / / | | [id number]: Qty: 1 on | | | | | | | | 05/05/2015 by Min Tello, | | | | | | | | at [facility] | | | | | | | | [facility] | | | | | | | + +--------+--------+ +--------+--------+--------+ | Tlif Oblique [id number] 12deg | | Spine | NUVASIVE - | | | [id number] | | - [id number]: Qty: 1 | | Lumbar | NVSV | | | 2 / / | | on 05/05/2015 by Min Tello | | | | | | | | MD Nazia at [facility] | | | | | | | | [facility] | | | | | | | + +--------+--------+ +--------+--------+--------+ | Screw Set - | | Spine | NUVASIVE - | | | [id number] | | [id number]: Qty: 9 on | | Lumbar | NVSV | | | 0 / / | | 05/05/2015 by Min Tello | | | | | | | | at [facility] | | | | | | | | [facility] | | | | | | | + +--------+--------+ +--------+--------+--------+ | Screw Polyax Precept 7.5x55 - | | Spine | NUVASIVE - | | | [id number] | | [id number]: Qty: 2 | | Lumbar | NVSV | | | 5A / / | | on 05/05/2015 by Min Tello | | | | | | | | MD Nazia at [facility] | | | | | | | | [facility] | | | | | | | + +--------+--------+ +--------+--------+--------+ Results Not on filefrom Last 3 Months [...] +--------+ +---------+--------+ | MEDICARE | MEDICA | [id number] | 04/28/19 | [phone] | | Medica | | | RE | | 14-Pre | 5 | | re | | | PART A | | sent | | | | | | AND B | | | | | | + +--------+ +--------+ +---------+--------+ | | TRICAR | [id number] | | [phone] | | Indemn | [...] Self | [birth year] | [address] | | [place] | sharda/Zelalem | | 1951 | [phone] | [place] [address] | | | [place] | | | 2 (Home) | | + +--------+ +--------+ + + Advance Directives + + + + + | Type | Date Recorded | Patient | Explanation | | | | Director Of Consumer Marketing | | + + + + + | Power of | | | | | Food Preparation Worker | | | | + + + [...]
--- OUTSIDE RECORDS SUMMARY | ~2019-09-03 | XMS | Encounter Summary ---
Demographics + + + | Address | [address] | | | [place] [address] | + + + | Home Phone [...] | Author | [facility] | | | and [place] | + + + | Organization | [facility] | [...] [place] | | | | | [address] | | + + + + + | Santo Cervantes | ECON | Unknown | | + + + + + Care Team Providers + +------+ + | Care Floor Helper Name | Role | Phone | + +------+ + | Shubham Maurer MD | PCP | | + +------+ + Encounter Details +--------+ + + + + | Date | Type | Department | Care Team | Description | +--------+ + + + + | 04/28/ | [facility] Only | [facility] Jovan Alford | Lumbar radiculopathy | | 2016 | | NEUROSURGERY [address] | [address] | (Primary Dx); S/P | | | | [address] | [address] | lumbar fusion | | | | [place] | [place] [address] | | | | | [address] | [phone] | | | | | [phone] | | | +--------+ + + + [...] 2 or 3 Vw (06/04/2015 11:24 AM [facility]) + + | Specimen | [...] through S1 with spacer hardware at these [facility] | | levels. Moderate spondylosis [...] + + | Performing | Address | City/State[facility] | Phone Number | | Organization | | | | + + + + + | [address] | [address] | [place], [place] | [phone] | | [facility] | | [address] | | | - IMAGING | | [...]
--- OUTSIDE RECORDS SUMMARY | ~2019-09-03 | XMS | Encounter Summary ---
Demographics + + + | Address | [address] | | | [place] [address] | + + + | Home Phone | | + + + | Preferred Language | Unknown | + + + | Marital Status | Single | + + + | Scientology Affiliation | 1077 | + + + | Race | Unknown | + + + | Ethnic Group | Unknown | + + + Author + + + | Author | [facility] | | | and [place] | + + + | Organization | [facility] | | | and [...] [place] | | | | | [address] | | + + + + + | Santo Cervantes | ECON | Unknown | | + + + + + Care Team Providers + +------+ + | Care Mine Safety Engineer Name | Role | Phone | [...] | | Spinal | Jovan | [place] | | | | | stenosis, | [address] | [place], | | | | | lumbar | [address] | [place] [address] | | | | | Lumbar | [address] | Phone: | | | | | radiculopath | [place] | [phone] | | | | | y S/P | [address] | Fax: | | | | | lumbar | Phone: | [phone] | | | | | fusion DDD | [phone] | | | | | | (degenerativ | Fax: | | | | | | e disc | [phone] | | | | | | disease), [...] + + | 11/12/ | Office | [facility] | Jovan Alford | Spinal stenosis, | | 2016 | Visit | NEUROSURGERY [address] | [address] | lumbar (Primary Dx); | | | | [address] | [address] | Lumbar | | | | [place], [place] | [place] [address] | radiculopathy; S/P | | | | [address] | [phone] | lumbar fusion; DDD | | | | [phone] | | (degenerative disc | | | [...] the original. .. Jovan Alford PA-C [address] [facility] [address] [place] [address] FAX: NEUROSURGERY FOLLOW-UP CHIEF COMPLAINT: Chief Complaint [...] % cream Apply 1 Application topically Daily. [place]-3 Fatty Acids (OMEGA 3 PO) Take 2 [...]
--- OUTSIDE RECORDS SUMMARY | ~2019-09-03 | XMS | Encounter Summary ---
Demographics + + + | Address | [address] | | | [place] [address] | + + + | Home Phone [...] Author | [facility] | | | and [place] | + + + | Organization | [facility] [...] [place] | | | | | [address] | | + + + + + | Santo Cervantes | ECON | Unknown | | + + + + + Care Team Providers + +------+ + | Care Tradeshow Worker Name | Role | Phone | + +------+ + | Shubham Maurer MD | PCP | | + +------+ + Reason for Visit + + + | Reason | Comments | + + + | Follow-up | Left knee pain *HAVING EXTREME PAIN* | + + + Follow Up (Routine) +--------+--------+ + + + + | Status | Reason | Specialty | Diagnoses / | Referred By | Referred To | | | | | Procedures | Contact | Contact | +--------+--------+ + + + + | Closed | | Orthopedic | Diagnoses | [place], | Eliu, | | | | Surgery | Pain in | Shubham C, | Julius Ford MD | | | | | right knee | [address] | [address] | | | | | Pain in left | [address] | [address] | | | | | knee | [place], | [place] | | | | | Procedures | [place] [address] | [address] Phone: | | | | | FOLLOW UP | Phone: | [phone] | | | | | | [phone] | Fax: | | | | | | Fax: | [phone] | | | | | | [phone] | | +--------+--------+ + + + + Encounter Details +--------+---------+ + + + | Date | Type | Department | Care Team | Description | +--------+---------+ + + + | 03/08/ | Office | [facility] | Julius Nowak | Left knee pain, | | 2019 | Visit | ORTHOPEDIC SURGERY | MD Liliana [address] | unspecified | | | | [address] | [place] | chronicity (Primary | | | | [place] | [address] | Dx); Primary | | | | [address] | | osteoarthritis of | | | | [phone] | | left knee | +--------+---------+ + + + Social History [...] encounter Progress Notes Julius Nowak MD - 03/08/2019 3:15 PM PSTDon turns for follow-up of his left knee. He has already undergone a successful right total knee joint replacement on 12/19/2017 but now is noting intermittent left knee pain. He states today that he had a particularly bad s juan of pain over 1 month ago but now has been essentially pain-free for the past 4 weeks. Examination: Exam reveals that Kvng is walking with an even gait. His left knee motion is a pproximately 8 to 115 degrees with some pain at the limits of motion. He continues to have good stability and neurovascular function is intact his left foot. Imaging: X rays taken today of the left knee show moderate medial compartment narrowing wi th some preservation of joint space. Chondrocalcinosis is seen in the medial and lateral me nisci as well. Advice: Kvng is experiencing ongoing symptoms of osteoarthrosis of his left knee. However, he is still ambulating well and is having only intermittent pain. He therefore plans to con tinue to manage his symptoms with vdcx-cje-aydzbyk medication and will contact us in the fut ure if his pain becomes more intense and more persisting. He understands that he may requir e left knee joint replacement at some future time but currently is getting by fairly well. documented in th is encounter Plan of Treatment Not on filedocumented [...] + | Left knee pain, unspecified chronicity - Primary | + + | Primary osteoarthritis of left knee Primary localized osteoarthrosis, lower leg | + + documented in this encounter
--- OUTSIDE RECORDS SUMMARY | ~2019-09-03 | XMS | Encounter Summary ---
Demographics + + + | Address | [address] | | | [place] [address] | + + + | Home Phone [...] Author + + + | Author | [facility] | | | and [place] | + + + | Organization | [facility] | | | and [...] [place] | | | | | [address] | | + + + + + | Santo Cervantes | ECON | Unknown | | + + + + + Care Team Providers + +------+ + | Care Programmer Analyst Name | Role | Phone [...] | | [address] | [place] [address] | | | | | [place] | [phone] | | | | | [address] | | | | | | [phone] | | | +--------+ + + + [...]
--- OUTSIDE RECORDS SUMMARY | ~2019-09-03 | XMS | Encounter Summary ---
Demographics + + + | Address | [address] | | | [place] [address] | + + + | Home Phone [...] Author | [facility] | | | and [place] | + + + | Organization | [facility] | | | and [...] [place] | | | | | [address] | | + + + + + | Santo Cervantes | ECON | Unknown | | + + + + + Care Team Providers + +------+ + | Care Manager Installation Name | Role | Phone | + +------+ + | Shubham Maurer MD | PCP | | + +------+ + Encounter Details +--------+ + + + + | Date | Type | Department | Care Team | Description | +--------+ + + + + | 02/28/ | Hospital | [facility] | Min Tello MD | Bilateral low back | | 2015 | Encounter | MED CTR XRAY [address] | [address] | pain, with sciatica | | | | [place] [address] | [place] [address] | presence unspecified | | | | [place] [address] | [phone] | | | | | [phone] | | | +--------+ + + + [...] | + + + +---------+--------+ + | UGQ-MOJ-Kbnboxq E | Take 2 capsules by | [...] | + + + +---------+--------+ + | [place]-3 Krill Oil | Take 2 capsules by [...]
--- OUTSIDE RECORDS SUMMARY | ~2019-09-03 | XMS | Encounter Summary ---
Demographics + + + | Address | [address] | | | [place] [address] | + + + | Home Phone | | + + + | Preferred Language | Unknown | + + + | Marital Status | Single | + + + | Faith Affiliation | PRO | + + + [...] Team Providers + +------+ + | Care Sales Team Leader Name | Role | Phone | + [...] | | | | | radiculopath | [place], | | | | | | y DDD | [place] [address] | | | | | | (degenerativ | Phone: | | | | | | e disc | [phone] | | | | | | disease), | Fax: | | | | | | cervical | [phone] | | | | | | Cervical [...] | | | | disc | | [place], [place] | | | | | disease, | | [address] | | | | | lumbar | | Phone: | | | | | Facet | | [phone] | | | | | arthropathy, | | Fax: | | | | | lumbar | | [phone] | | | | | Lumbar | [...] | | [address] | [place] [address] | (degenerative disc | | | | [place], [place] | [phone] | disease), cervical; | | | | [address] | | Cervical stenosis of | | | | [phone] | | spinal canal; Other | | [...] from t isabel original. Min Tello MD [facility] [address] [place] [address] NEUROSURGERY HISTORY AND PHYSICAL EXAMINATION CHIEF COMPLAINT: [...] has no apparent deficits with short or alf memory. CRANIAL NERVES: II: Acuity is intact. [...] Intrinsics 5 5 Ulnar Intrinsics 5 5 Floor Framer Strength 5 5 Hip Flexion 4+ 5 [...] stenosis. We will order the imaging at [facility]. We had a general discussion about [...] ed by Rene Hope. Min Tello MD [facility] [address] [place] [address] [address] [place] [id number] Rhianna Roberts MA - 12/26 1:00 PM [...]
--- OUTSIDE RECORDS SUMMARY | ~2019-09-03 | XMS | Encounter Summary ---
Demographics + + + | Address | [address] | | | [place] [address] | + + + | Home Phone | | + + + | Preferred Language | Unknown | + + + | Marital Status | Single | + + + | Scientology Affiliation | 1077 | + + + | Race | Unknown | + + + | Ethnic Group | Unknown | + + + Author + + + | Author | [facility] | | | and [place] | + + + | Organization | [facility] | [...] [place] | | | | | [address] | | + + + + + | Santo Cervantes | ECON | Unknown | | + + + + + Care Team Providers + +------+ + | Care Superintendent Marine Name | Role | Phone | + +------+ + | Shubham Maurer MD | PCP | | + +------+ + Reason for Visit + + + | Reason | Comments | + + + | Surgery Appointment | | + + + Encounter Details +--------+ + + + + | Date | Type | Department | Care Team | Description | +--------+ + + + + | 12/13/ | Telephone | [facility] | Julius Nowak | Surgery Appointment | | 2017 | | ORTHOPEDIC SURGERY | MD Liliana [address] | | | | | [address] [facility] | [place] | | | | | [place] | [address] | | | | | [address] | | | | | | [phone] | | | +--------+ + + + [...]
--- OUTSIDE RECORDS SUMMARY | ~2019-09-03 | XMS | Encounter Summary ---
Demographics + + + | Address | [address] | | | [place] [address] | + + + | Home Phone | | + + + | Preferred Language | Unknown | + + + | Marital Status | Single | + + + | Gnosticism Affiliation | 1077 | + + + | Race | Unknown | + + + | Ethnic Group | Unknown | + + + Author + + + | Author | [facility] | | | and [place] | + + + | Organization | [facility] | | | [...] [place] | | | | | [address] | | + + + + + | Santo Cervantes | ECON | Unknown | | + + + + + Care Team Providers + +------+ + | Care Screw Machine Tool Setter Name | Role | Phone | + +------+ + | Shubham Maurer MD | PCP | | + +------+ + Encounter Details +--------+ + + + + | Date | Type | Department | Care Team | Description | +--------+ + + + + | 10/09/ | Orders Only | [facility] | Jovan Alford | Lumbar | | 2016 | | NEUROSURGERY [address] | [address] | radiculopathy; | | | | [address] | [address] | Spinal stenosis, | | | | [place], [place] | [place] [address] | lumbar; [place] | | | | [address] | [phone] | (degenerative disc | | | | [phone] | | disease), lumbar | +--------+ + [...]
--- OUTSIDE RECORDS SUMMARY | ~2019-09-03 | XMS | Encounter Summary ---
Demographics + + + | Address | [address] | | | [place] [address] | + + + | Home Phone [...] | Author | [facility] | | | and [place] | + + + | Organization | [facility] | | | and [...] [place] | | | | | [address] | | + + + + + | Santo Cervantes | ECON | Unknown | | + + + + + Care Team Providers + +------+ + | Care Transmission Maintenance Supervisor Name | Role | Phone | + +------+ + | Shubham Maurer MD | PCP | | + +------+ + Reason for Visit +---------+ + | Reason | Comments | +---------+ + | Post Op | | +---------+ + Encounter Details +--------+ + + + + | Date | Type | Department | Care Team | Description | +--------+ + + + + | 05/14/ | Telephone | [facility] | Min Tello MD | Post Op | | 2015 | | NEUROSURGERY [address] | [address] | | | | | [address] | [place] [address] | | | | | [place] | [phone] | | | | | [address] | | | | | | [phone] | | | +--------+ + + + [...]
--- OUTSIDE RECORDS SUMMARY | ~2019-09-03 | XMS | Encounter Summary ---
Demographics + + + | Address | [address] | | | [place] [address] | + + + | Home Phone [...] + + + | Author | [facility] | | | and [place] | + + + | Organization | [facility] | | | and [...] [place] | | | | | [address] | | + + + + + | Santo Cervantes | ECON | Unknown | | + + + + + Care Team Providers + +------+ + | Care Counselor Nurses' Association Name | Role | Phone | + +------+ + | Shubham Maurer MD | PCP | | + +------+ + Encounter Details +--------+ + + + + | Date | Type | Department | Care Team | Description | +--------+ + + + + | 06/15/ | Orders Only | [facility] | Min Tello MD | Status post lumbar | | 2017 | | NEUROSURGERY [address] | [address] | spinal fusion | | | | [address] | [place] [address] | (Primary Dx) | | | | [place] | [phone] | | | | | [address] | | | | | | [phone] | | | +--------+ + + + [...] CT dated December 15, 2015. Radiographs | [facility] | | dated October 20, 2015. FINDINGS: Frontal and lateral views of the | [facility] | | lumbar spine. Posterior and interbody [...] + | [address] | [address] | [place] | [phone] | | [facility] | | [address] | | | - IMAGING | | | | + + + + + documented in this encounter Visit Diagnoses + + | Diagnosis | + + | Status post lumbar spinal fusion - Primary Arthrodesis status | + + documented in this encounter"
--- OUTSIDE RECORDS SUMMARY | ~2019-09-03 | XMS | Encounter Summary ---
Demographics + + + | Address | [address] | | | [place] [address] | + + + | Home Phone [...] | Author | [facility] | | | and [place] | + + + | Organization | [facility] | | | and [...] [place] | | | | | [address] | | + + + + + | Santo Cervantes | ECON | Unknown | | + + + + + Care Team Providers + +------+ + | Care Sdv Pilot/Navigator/Dds Operator Name | Role | Phone | [...] | | [address] | [place] [address] | | | | | [place] | [phone] | | | | | [address] | | | | | | [phone] | | | +--------+ + + + [...]
--- OUTSIDE RECORDS SUMMARY | ~2019-09-03 | XMS | Encounter Summary ---
Demographics + + + | Address | [address] | | | [place] [address] | + + + | Home Phone [...] | Author | [facility] | | | and [place] | + + + | Organization | [facility] | [...] [place] | | | | | [address] | | + + + + + | Santo Cervantes | ECON | Unknown | | + + + + + Care Team Providers + +------+ + | Care Union Laborer Name | Role | Phone | + [...] YAW | unspecified | | | | [place], [place] | [place] [address] | laterality (Primary | | | | [address] | [phone] | Dx) | | | | [phone] | | | +--------+---------+ + + + [...] be differe nt from the original. ORTHOPEDICS [address] [place] [address] FAX: [phone] Name: Raúl Day : 1950 Age: 67 y.o. Todays Date: 01/03/2018 Primary Care Provider: Shubham Maurer MD Subjective: First postoperative visit for right total knee arthroplasty performed on 12/19/17. He is be en [facility] 4 he was placed [...] thinning therapy for the next 2 weeks. [facility] physical therapy order was placed for the R[facility] in [facility]. B. Patient will follow-up in approximately 3-4 weeks' time for reevaluation and x-rays. C. Patient was advised that should they have any questions, comments or concerns to irma ct our office. Damian Escobedo PA-C 01/03/2018 14:59 This note was dictated using the Cartour voice recognition system. There may be minor errors in grammar. documented in t his encounter Plan of Treatment Not on filedocumented as of this encounter Visit Diagnoses + + | Diagnosis | + + | Status post knee replacement, unspecified laterality - Primary | + + documented in this encounter
--- OUTSIDE RECORDS SUMMARY | ~2019-09-03 | XMS | Encounter Summary ---
Demographics + + + | Address | [address] | | | [place] [address] | + + + | Home Phone | | + + + | Preferred Language | Unknown | + + + | Marital Status | Single | + + + | Uatsdin Affiliation | 1077 | + + + | Race | Unknown | + + + | Ethnic Group | Unknown | + + + Author + + + | Author | [facility] | | | and [place] | + + + | Organization | [facility] | | | and [place] [...] [place] | | | | | [address] | | + + + + + | Santo Cervantes | ECON | Unknown | | + + + + + Care Team Providers + +------+ + | Care Slubber Runner Name | Role | Phone | + [...] + | 08/19/ | Office | [facility] | Min Tello MD | S/P lumbar fusion | | 2016 | Visit | NEUROSURGERY [address] | [address] | (Primary Dx) | | | | [address] | [place] [address] | | | | | [place] | [phone] | | | | | [address] | | | | | | [phone] | | | +--------+---------+ + + + [...] from t he original. Min Tello MD [address] [place] [address], [address] [place], [place] [id number] FAX: NEUROSURGERY FOLLOW-UP CHIEF COMPLAINT: Chief Complaint [...] every 6 hours as needed for Pain. [place]-3 Krill Oil 500 MG CAPS Take 1 [...] go home today after being at a custodial facility. He did start anti-inflammatories for his [...] hope that they can avoid additional surgery. group home pain medication does not appear to be [...]
--- OUTSIDE RECORDS SUMMARY | ~2019-09-03 | XMS | Encounter Summary ---
Demographics + + + | Address | [address] | | | [place] [address] | + + + | Home Phone [...] [facility] | | | and [place] | + + + | Organization | [facility] | | | and [...] [place] | | | | | [address] | | + + + + + | Santo Cervantes | ECON | Unknown | | + + + + + Care Team Providers + +------+ + | Care Center Machine Set Up Operator Name | Role | Phone | [...] Description | +--------+--------+ + + + | 03/06/ | Refill | [facility] | Damian Escobedo | Medication Refill | | 2017 | | ORTHOPEDIC SURGERY | [address] | | | | | [address] [facility] | [place] | | | | | [place] | [place] [address] | | | | | [address] | [phone] | | | | | [phone] | | | +--------+--------+ + + + [...]
--- OUTSIDE RECORDS SUMMARY | ~2019-09-03 | XMS | Encounter Summary ---
Demographics + + + | Address | [address] | | | [place] [address] | + + + | Home Phone [...] | Author | [facility] | | | and [place] | + + + | Organization | [facility] | | | and [...] [place] | | | | | [address] | | + + + + + | Santo Cervantes | ECON | Unknown | | + + + + + Care Team Providers + +------+ + | Care Chair Name | Role | Phone | + [...] 2017 | Changes | ORTHOPEDIC SURGERY | Director Transportation | | | | | [place] | | | | | | [place] | | | | | | [address] | | | | | | [phone] | | | +--------+ + + + [...]
--- OUTSIDE RECORDS SUMMARY | ~2019-09-03 | XMS | Encounter Summary ---
Demographics + + + | Address | [address] | | | [place] [address] | + + + | Home Phone [...] [facility] | | | and [place] | + + + | Organization | [facility] | | [...] [place] | | | | | [address] | | + + + + + | Santo Cervantes | ECON | Unknown | | + + + + + Care Team Providers + +------+ + | Care Boats Renter Name | Role | Phone | + +------+ + | Atul Adkins MD | PCP | | + +------+ + Encounter Details +--------+ + + + + | Date | Type | Department | Care Team | Description | +--------+ + + + + | 11/11/ | Abstract | [facility] | Min Tello MD | | | 2015 | | NEUROSURGERY [address] | [address] [facility] [address] | | | | | [address] [facility] [address] | [place] [address] | | | | | [place] | [phone] | | | | | [address] | | | | | | [phone] | | | +--------+ + + + [...]
--- OUTSIDE RECORDS SUMMARY | ~2019-09-03 | XMS | Encounter Summary ---
Demographics + + + | Address | [address] | | | [place] [address] | + + + | Home Phone | | + + + | Preferred Language | Unknown | + + + | Marital Status | Single | + + + | Roman Catholic Affiliation | PRO | + + + [...] Team Providers + +------+ + | Care Bacon Skinner Name | Role | Phone | + [...] | | | | [address] | [place] [address] | | | | | [place], [place] | [phone] | | | | | [address] | | | | | | [phone] | | | +--------+ + + + [...]
--- OUTSIDE RECORDS SUMMARY | ~2019-09-03 | XMS | Clinical Summary ---
Demographics + + + | Address | [address] | | | [place] [address] | + + + | Home Phone [...] | Author | [facility] | | | and [place] | + + + | Organization | [facility] | | | and [...] [place] | | | | | [address] | | + + + + + | Santo Cervantes | ECON | Unknown | | + + + + + Care Team Providers + +------+ + | Care Undertaker Assistant Name | Role | Phone | + [...] | | 04/27/ | 00-111 | | [id number]: Qty: 2 | c | Knee | ZIMM | | 2022 | 2-140- | | on 12/19/2017 by Eliu, | | | | | | 01 / | | Julius Ford MD at [facility] | | | | | | /[id number] | | [facility] | | | | | | 767 | | CENTER | | | | | | | + +--------+--------+ +--------+--------+--------+ | Imp Knee Fem Stem Rt Sz9 - | Generi | Right: | NORAH - | | 02/24/ | 42-502 | | [id number]: Qty: 1 | c | Knee | ZIMM | | 2026 | 6-066- | | on 12/19/2017 by Eliu, | | | | | | 02 / | | Julius Ford MD at [facility] | | | | | | /[id number] | | [facility] | | | | | | 975 | | CENTER | | | | | | | + +--------+--------+ +--------+--------+--------+ | Imp Knee Tib 5deg Rt Szf - | Generi | Right: | NORAH - | | 08/25/ | 42-532 | | [id number]: Qty: 1 | c | Knee | ZIMM | | 2027 | 0-075- | | on 12/19/2017 by Eliu, | | | | | | 02 / | | Julius Ford MD at [facility] | | | | | | /[id number] | | [facility] | | | | | | 098 | | CENTER | | | | | | | + +--------+--------+ +--------+--------+--------+ | Imp Knee Ptela Polyeth 35mm - | Generi | Right: | NORAH - | | 09/24/ | 42-540 | | [id number]: Qty: 1 | c | Knee | ZIM | | 2025 | 0-000- | | on 12/19/2017 by Eliu, | | | | | | 35 / | | Julius Ford MD at [facility] | | | | | | /[id number] | | [facility] | | | | | | 384 | | CENTER | | | | | | | + +--------+--------+ +--------+--------+--------+ | Imp Knee Surf [facility] R 11 | Generi | Right: | NORAH - | | 12/25/ | 42-522 | | 8-11ef - [id number]: | c | Knee | ZIMM | | 2021 | 1-008- | | Qty: 1 on 12/19/2017 by | | | | | | 11 / | | Julius Nowak MD at | | | | | | /[id number] | | [facility] | | | | | | 859 | | [facility] | | | | | | | + +--------+--------+ +--------+--------+--------+ | Chips Can 1.7-10mm 30cc - | | Spine | MEDTRONIC - | | 09/10/ | [id number] | | SnaImplanted: Qty: 1 on | | Lumbar | MEDT | | 2020 | | | 05/05/2015 by Min Tello, | | | | | | /[id number] | | at [facility] | | | | | | 1-022 | | [facility] | | | | | | / | + +--------+--------+ +--------+--------+--------+ | Yonatan Ti Prebent Lordtc 95mm - | | Spine | NUVASIVE - | | | 145554 | | [id number]: Qty: 2 on | | Lumbar | NVSV | | | 5 / / | | 05/05/2015 by Min Tello | | | | | | | | at [facility] | | | | | | | | [facility] | | | | | | | + +--------+--------+ +--------+--------+--------+ | Screw Polyax Prcpt 7.5x50mm - | | Spine | NUVASIVE - | | | [id number] | | [id number]: Qty: 4 | | Lumbar | NVSV | | | 0A / / | | on 05/05/2015 by Min Tello | | | | | | | | MD Nazia at [facility] | | | | | | | | [facility] | | | | | | | + +--------+--------+ +--------+--------+--------+ | Screw Prcpt 8.5x45mm - | | Spine | NUVASIVE - | | | [id number] | | [id number]: Qty: 2 on | | Lumbar | NVSV | | | 5A / / | | 05/05/2015 by Min Tello, | | | | | | | | at [facility] | | | | | | | | [facility] | | | | | | | + +--------+--------+ +--------+--------+--------+ | Putty Mason 10cc Dbm - | | Spine | OSTEOTECH - | | 01/14/ | 05069 | | [id number]: Qty: 1 | | Lumbar | OSTT | | 2017 | /[id number] | | on 05/05/2015 by Min Tello | | | | | | 9-033 | | MD Nazia at [facility] | | | | | | / | | [facility] | | | | | | | + +--------+--------+ +--------+--------+--------+ | Graft Infuse Bone Kit Xxs - | | Spine | SOFAMOR | | 12/03/ | [id number] | | SnaImplanted: Qty: 1 on | | Lumbar | DANEK - DIV | | 2016 | 0 / | | 05/05/2015 by Min eTllo, | | | MEDTRONIC | | | /[id number] | | at [facility] | | | - SFDK | | | [id number] | | [facility] | | | | | | | + +--------+--------+ +--------+--------+--------+ | Graft Infuse Bone Kit Xs - | | Spine | SOFAMOR | | 02/02/ | [id number] | | SnaImplanted: Qty: 1 on | | Lumbar | DANEK - DIV | | 2015 | 0 / | | 05/05/2015 by Min Tello, | | | MEDTRONIC | | | /[id number] | | MD at [facility] | | | - SFDK | | | 47AAD | | [facility] | | | | | | | + +--------+--------+ +--------+--------+--------+ | Imp Spn Intbdy Xlw | | Spine | NUVASIVE - | | | [id number] | | [id number] - | | Lumbar | NVSV | | | 0 / / | | [id number]: Qty: 1 on | | | | | | | | 05/05/2015 by Min Tello, | | | | | | | | at [facility] | | | | | | | | [facility] | | | | | | | + +--------+--------+ +--------+--------+--------+ | Imp Spn Intbdy Xlw | | Spine | NUVASIVE - | | | [id number] | | [id number] - | | Lumbar | NVSV | | | 5 / / | | [id number]: Qty: 1 on | | | | | | | | 05/05/2015 by Min Tello, | | | | | | | | at [facility] | | | | | | | | [facility] | | | | | | | + +--------+--------+ +--------+--------+--------+ | Tlif Oblique [id number] 12deg | | Spine | NUVASIVE - | | | 889155 | | - [id number]: Qty: 1 | | Lumbar | NVSV | | | 2 / / | | on 05/05/2015 by Min Tello | | | | | | | | MD Nazia at [facility] | | | | | | | | [facility] | | | | | | | + +--------+--------+ +--------+--------+--------+ | Screw Set - | | Spine | NUVASIVE - | | | [id number] | | [id number]: Qty: 9 on | | Lumbar | NVSV | | | 0 / / | | 05/05/2015 by Min Tello | | | | | | | | at [facility] | | | | | | | | [facility] | | | | | | | + +--------+--------+ +--------+--------+--------+ | Screw Polyax Precept 7.5x55 - | | Spine | NUVASIVE - | | | [id number] | | [id number]: Qty: 2 | | Lumbar | NVSV | | | 5A / / | | on 05/05/2015 by Min Tello | | | | | | | | MD Nazia at [facility] | | | | | | | | [facility] | | | | | | [...] +--------+ +---------+--------+ | MEDICARE | MEDICA | [id number] | 04/28/19 | [phone] | | Medica | | | RE | | 14-Pre | 5 | | re | | | PART A | | sent | | | | | | AND B | | | | | | + +--------+ +--------+ +---------+--------+ | | TRICAR | [id number] | | [phone] | | Indemn | [...] | 1951 | [phone] | [place] [address] | | | [place] | | | 2 (Home) | | + +--------+ +--------+ + + Advance Directives + + + + + | Type | Date Recorded | Patient | Explanation | | | | Natural Gas Shothole Driller | | + + + + + | Power of | | | | | Epoxy Fabrication Supervisor | | | | + + + [...]
--- OUTSIDE RECORDS SUMMARY | ~2019-09-03 | XMS | Encounter Summary ---
Demographics + + + | Address | [address] | | | [place] [address] | + + + | Home Phone | | + + + | Preferred Language | Unknown | + + + | Marital Status | Single | + + + | Jainism Affiliation | 1077 | + + + | Race | Unknown | + + + | Ethnic Group | Unknown | + + + Author + + + | Author | [facility] | | | and [place] | + + + | Organization | [facility] | | | and [place] [...] [place] | | | | | [address] | | + + + + + | Santo Cervantes | ECON | Unknown | | + + + + + Care Team Providers + +------+ + | Care Straw Boss Name | Role | Phone | + [...] | NEUROSURGERY [address] | [address] [facility] [address] | | | | | [address]IRT [facility] [address] | [place] [address] | | | | | [place] | [phone] | | | | | [address] | | | | | | [phone] | | | +--------+ + + + [...]
--- OUTSIDE RECORDS SUMMARY | ~2019-09-03 | XMS | Encounter Summary ---
Demographics + + + | Address | [address] | | | [place] [address] | + + + | Home Phone [...] + | Author | [facility] | | | and [place] | + + + | Organization | [facility] | | | and [...] [place] | | | | | [address] | | + + + + + | Santo Cervantes | ECON | Unknown | | + + + + + Care Team Providers + +------+ + | Care Brand Director Name | Role | Phone | [...] | | | | spine, | | [place], [place] | | | | | unspecified | | [address] | | | | | scoliosis | | Phone: | | | | | Scoliosis of | | [phone] | | | | | lumbar | | Fax: | | | | | spine, | | [phone] | | | | | unspecified | | | | | | | scoliosis | | | | | | | [M41.9] | | | | | | | Procedures | | | | | | | ID | | | | | | | [...] | | | | | [address] [place] | | | | | [place] | [address] | | | | | [address] | | | | | | [phone] | Nolberto Villavicencio MD | | | | | | [address] | | | | | | [place] | | | | | | [address] | | | | | | | [...] +----+---+ + + | | 1 | [place] | | | | 5 | 43-degrees | | | | 5 | | | | | 9 | | | +----+---+ + + | | 1 | First | | | | 6 | [address] | | | | 0 | | | | | 1 | | | +----+---+ + + | | 1 | [place] off | | | | 6 | | | | | 5 | | | | | 7 | | | +----+---+ + + | | 1 | [place] | | | | 7 | 38-degrees | | | | 1 | | | | | 1 | | | +----+---+ + + | | 2 | [place] off | | | | 0 | [...] + + | Periph | 05/05/15; 1412; [id number] | 05/05/15 1412 by | 05/08/15 1036 [...]
--- OUTSIDE RECORDS SUMMARY | ~2019-09-03 | XMS | Encounter Summary ---
Demographics + + + | Address | [address] | | | [place] [address] | + + + | Home Phone [...] + | Author | [facility] | | | and [place] | + + + | Organization | [facility] | | | and [...] [place] | | | | | [address] | | + + + + + | Santo Cervantes | ECON | Unknown | | + + + + + Care Team Providers + +------+ + | Care Management Development Specialist Name | Role | Phone | + +------+ + | Shubham Maurer MD | PCP | | + +------+ + Encounter Details +--------+ + + + + | Date | Type | Department | Care Team | Description | +--------+ + + + + | 11/08/ | Hospital | [facility] | Julius Nowak | Pain in both knees, | | 2018 | Encounter | [facility] | MD Liliana [address] [facility] | unspecified | | | | [address] | [place] | chronicity | | | | [place] | [address] | | | | | [address] | | | | | | [phone] | | | +--------+ + + + [...] | + + + +---------+--------+ + | [place]-3 Fatty | Take 2 capsules by | [...]
--- OUTSIDE RECORDS SUMMARY | ~2019-09-03 | XMS | Encounter Summary ---
Demographics + + + | Address | [address] | | | [place] [address] | + + + | Home Phone | | + + + | Preferred Language | Unknown | + + + | Marital Status | Single | + + + | Quaker Affiliation | 1077 | + + + | Race | Unknown | + + + | Ethnic Group | Unknown | + + + Author + + + | Author | [facility] | | | and [place] | + + + | Organization | [facility] | | | and [...] [place] | | | | | [address] | | + + + + + | Santo Cervantes | ECON | Unknown | | + + + + + Care Team Providers + +------+ + | Care Railroad Crossing Protection Maintainer Name | Role | Phone | + [...] | | | | | disc | [place], | [address] | | | | | disease, | [place] [address] | [place], | | | | | lumbar | Phone: | [place] [address] | | | | | Facet | [phone] | Phone: | | | | | arthropathy, | Fax: | [phone] | | | | | lumbar | [phone] | Fax: | | | | | Foraminal | | [phone] | | | | | stenosis of [...] | | [address] | [place] [address] | MANAGEMENT FACILITY) | | | | [place] | [phone] | | | | | [address] | | | | | | [phone] | | | +--------+ + + + [...]
--- OUTSIDE RECORDS SUMMARY | ~2019-09-03 | XMS | Encounter Summary ---
Demographics + + + | Address | [address] | | | [place] [address] | + + + | Home Phone | | + + + | Preferred Language | Unknown | + + + | Marital Status | Single | + + + | Anabaptist Affiliation | 1077 | + + + | Race | Unknown | + + + | Ethnic Group | Unknown | + + + Author + + + | Author | [facility] | | | and [place] | + + + | Organization | [facility] | | | and [...] [place] | | | | | [address] | | + + + + + | Santo Cervantes | ECON | Unknown | | + + + + + Care Team Providers + +------+ + | Care Filing Machine Operator Name | Role | Phone [...] | | [address] | [place] [address] | laterality (Primary | | | | [place] | [phone] | Dx) | | | | [address] | | | | | | [phone] | | | +--------+ + + + [...]
--- OUTSIDE RECORDS SUMMARY | ~2019-09-03 | XMS | Encounter Summary ---
Demographics + + + | Address | [address] | | | [place] [address] | + + + | Home Phone [...] | [facility] | | | and [place] | + + + | Organization | [facility] | [...] [place] | | | | | [address] | | + + + + + | Santo Cervantes | ECON | Unknown | | + + + + + Care Team Providers + +------+ + | Care Garbage Collector Driver Name | Role | Phone | + [...] Services | Therapy | Status post | [place] | [facility] | | | Required | | right knee | BECCA Nuñez | PHYSICAL | | | | | replacement | [address] | THERAPY [address] | | | | | Right knee | [address] | [place]IA [place] | | | | | pain, | [place], [place] | [place], [place] | | | | | unspecified | [address] | [address] | | | | | chronicity | Phone: | Phone: | | | | | | [phone] | [phone] | | | | | | Fax: | Fax: | | | | | | [phone] | [phone] | +--------+ + + + + + Encounter Details +--------+ + + + + | Date | Type | Department | Care Team | Description | +--------+ + + + + | 01/10/ | Orders Only | [facility] | Damian Escobedo | Status post right | | 2018 | | ORTHOPEDIC SURGERY | BECCA Nuñez [address] | knee replacement | | | | [address] [facility] | Steven Starkey | (Primary Dx); Right | | | | [place] | [place] [address] | knee pain, | | | | [address] | [phone] | unspecified | | | | [phone] | | chronicity | +--------+ + + [...]
--- OUTSIDE RECORDS SUMMARY | ~2019-09-03 | XMS | Encounter Summary ---
Demographics + + + | Address | [address] | | | [place] [address] | + + + | Home Phone [...] | Author | [facility] | | | and [place] | + + + | Organization | [facility] | | [...] [place] | | | | | [address] | | + + + + + | Santo Cervantes | ECON | Unknown | | + + + + + Care Team Providers + +------+ + | Care Field Assessor Name | Role | Phone | + [...] | | [address] | [place] [address] | | | | | [place] | [phone] | | | | | [address] | | | | | | [phone] | | | +--------+ + + + [...]
--- OUTSIDE RECORDS SUMMARY | ~2019-09-03 | XMS | Encounter Summary ---
Demographics + + + | Address | [address] | | | [place] [address] | + + + | Home Phone | | + + + | Preferred Language | Unknown | + + + | Marital Status | Single | + + + | Adventism Affiliation | 1077 | + + + | Race | Unknown | + + + | Ethnic Group | Unknown | + + + Author + + + | Author | [facility] | | | and [place] | + + + | Organization | [facility] | | | and [...] [place] | | | | | [address] | | + + + + + | Santo Cervantes | ECON | Unknown | | + + + + + Care Team Providers + +------+ + | Care Spool Tender Name | Role | Phone | + +------+ + | Shubham Maurer MD | PCP | | + +------+ + Encounter Details +--------+ + + + + | Date | Type | Department | Care Team | Description | +--------+ + + + + | 11/07/ | Orders Only | [facility] | Julius Nowak | Pain in both knees, | | 2018 | | ORTHOPEDIC SURGERY | MD Liliana [address] [facility] | unspecified | | | | [address] [facility] | [place] | chronicity (Primary | | | | [place] | [address] | Dx) | | | | [address] | | | | | | [phone] | | | +--------+ + + + [...]
--- OUTSIDE RECORDS SUMMARY | ~2019-09-03 | XMS | Encounter Summary ---
Demographics + + + | Address | [address] | | | [place] [address] | + + + | Home Phone [...] | Author | [facility] | | | and [place] | + + + | Organization | [facility] | | | and [place] [...] [place] | | | | | [address] | | + + + + + | Santo Cervantes | ECON | Unknown | | + + + + + Care Team Providers + +------+ + | Care Wallpaper Inspector Name | Role | Phone | + +------+ + | Shubham Maurer MD | PCP | | + +------+ + Encounter Details +--------+ + + + + | Date | Type | Department | Care Team | Description | +--------+ + + + + | 11/11/ | Orders Only | [facility] | Julius Nowak | Primary | | 2018 | | ORTHOPEDIC SURGERY | MD Liliana [address] 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
--- OUTSIDE RECORDS SUMMARY | ~2019-09-03 | XMS | Encounter Summary ---
Demographics + + + | Address | [address] | | | [place] [address] | + + + | Home Phone [...] Author | [facility] | | | and [place] | + + + | Organization | [facility] | | | and [place] [...] [place] | | | | | [address] | | + + + + + | Santo Cervantes | ECON | Unknown | | + + + + + Care Team Providers + +------+ + | Care Mechanical And Auto Body Car Checker Name | Role | Phone | + +------+ + | Shubham Maurer MD | PCP | | + +------+ + Encounter Details +--------+ + + + + | Date | Type | Department | Care Team | Description | +--------+ + + + + | 03/26/ | Hospital | [facility] | Min Tello MD | Lumbar | | 2015 | Encounter | MED CTR XRAY [address] | [address] | radiculopathy; Other | | | | [address] [place] | [place] [address] | secondary | | | | [place] [address] | [phone] | scoliosis, lumbar | | | | [phone] | | region; Degenerative | | | | | Ron Montero MD | disc disease, | | | | | [address] [place] [address] | lumbar; Facet | | | | | [place], [place] | arthropathy, lumbar; | | | | | [address] | Lumbar spinal | | | | [...] | + + + +---------+--------+ + | QEL-NYA-Hjbfztb E | Take 2 capsules by | [...] | + + + +---------+--------+ + | [place]-3 Krill Oil | Take 2 capsules by [...] [address] | [place] | [phone] | | [facility] | | [address] | | | - IMAGING | | [...]
--- OUTSIDE RECORDS SUMMARY | ~2019-09-03 | XMS | Encounter Summary ---
Demographics + + + | Address | [address] | | | [place] [address] | + + + | Home Phone | | + + + | Preferred Language | Unknown | + + + | Marital Status | Single | + + + | Religion Affiliation | 1077 | + + + | Race | Unknown | + + + | Ethnic Group | Unknown | + + + Author + + + | Author | [facility] | | | and [place] | + + + | Organization | [facility] | | | and [place] [...] [place] | | | | | [address] | | + + + + + | Santo Cervantes | ECON | Unknown | | + + + + + Care Team Providers + +------+ + | Care Director Mba Name | Role | Phone | + +------+ + | Shubham Maurer MD | PCP | | + +------+ + Encounter Details +--------+ + + + + | Date | Type | Department | Care Team | Description | +--------+ + + + + | 03/26/ | Preadmit | [facility] | Min Tello MD | Lumbar | | 2015 | Visit | MED CTR PREADMIT | [address] | radiculopathy; Other | | | | CLINIC [address] | [place] [address] | secondary | | | | [place] | [phone] | scoliosis, lumbar | | | | [address] | | region; Degenerative | | | | [phone] | | disc disease, | | | [...] | | | | MARYAM VILLALPANDO MD ([id number]) | | | | | | on [...] ST. | [address] | [place] | [phone] | | [facility] | | [address] | | | - LABORATORY | | [...] mL/min/1.73m2 | [facility] | | | [place] | | | MEDICAL | | | [...] [address] | [place] | [phone] | | [facility] | | [address] | | | - LABORATORY | | [...] [address] | [place] | [phone] | | [facility] | | [address] | | | - LABORATORY | | [...]
--- OUTSIDE RECORDS SUMMARY | ~2019-09-03 | XMS | Encounter Summary ---
Demographics + + + | Address | [address] | | | [place] [address] | + + + | Home Phone [...] Team Providers + +------+ + | Care Clinical Laboratory Medical Director Name | Role | Phone | [...] | | | | [address] | [place] [address] | | | | | [place], [place] | [phone] | | | | | [address] | | | | | | [phone] | | | +--------+ + + + [...]
--- OUTSIDE RECORDS SUMMARY | ~2019-09-03 | XMS | Encounter Summary ---
Demographics + + + | Address | [address] | | | [place] [address] | + + + | Home Phone [...] | [facility] | | | and [place] | + + + | Organization | [facility] | | | and [place] [...] [place] | | | | | [address] | | + + + + + | Santo Cervantes | ECON | Unknown | | + + + + + Care Team Providers + +------+ + | Care Olive Pitter Name | Role | Phone | + +------+ + | Atul Adkins MD | PCP | | + +------+ + Encounter Details +--------+ + + + + | Date | Type | Department | Care Team | Description | +--------+ + + + + | 11/29/ | Hospital | [facility] | Min Tello MD | Other back pain | | 2015 | Encounter | MED CTR XRAY [address] | [address] | | | | | [place] | [place] [address] | | | | | [place] [address] | [phone] | | | | | [phone] | | | +--------+ + + + [...] | + + + +---------+--------+ + | KII-GSP-Jurfpeh E | Take 2 capsules by | [...] | + + + +---------+--------+ + | Cook-3 Krill Oil | Take 2 capsules by [...] [address] | [place] | [phone] | | [facility] | | [address] | | | - IMAGING | | | | + + + + + documented in this encounter Visit Diagnoses + + | Diagnosis | + + | Other back pain | + + documented in this encounter"
--- OUTSIDE RECORDS SUMMARY | ~2019-09-03 | XMS | Encounter Summary ---
Demographics + + + | Address | [address] | | | [place] [address] | + + + | Home Phone | | + + + | Preferred Language | Unknown | + + + | Marital Status | Single | + + + | Islam Affiliation | 1077 | + + + | Race | Unknown | + + + | Ethnic Group | Unknown | + + + Author + + + | Author | [facility] | | | and [place] | + + + | Organization | [facility] | | | and [...] [place] | | | | | [address] | | + + + + + | Santo Cervantes | ECON | Unknown | | + + + + + Care Team Providers + +------+ + | Care Sander Portable Machine Name | Role | Phone | + +------+ + | Shubham Maurer MD | PCP | | + +------+ + Encounter Details +--------+ + + + + | Date | Type | Department | Care Team | Description | +--------+ + + + + | 01/17/ | Orders Only | [facility] | Damian Escobedo | Status post right | | 2018 | | ORTHOPEDIC SURGERY | [address] | knee replacement | | | | [address] [facility] | [address] | (Primary Dx); Right | | | | [place] | [place] [address] | knee pain, | | | | [address] | [phone] | unspecified | | | | [phone] | | chronicity | +--------+ + + [...]
--- OUTSIDE RECORDS SUMMARY | ~2019-09-03 | XMS | Clinical Summary ---
Demographics + + + | Address | [address] | | | [place] [address] | + + + | Home Phone [...] + + + | Author | [facility] Location | + + + | [...] Team Providers + +------+ + | Care Ranch Manager Name | Role | Phone | + +------+ + | Shubham Maurer MD | PCP | | + +------+ + Source Comments S[facility] is fully live on both [facility] and [facility] InPatient.[facility] Allergies No Known Allergies Medications No known [...] + + | Influenza (Flu) | | 11/26/2017, 12/17/2016, | | | vaccination (#1) | 9 | 12/06/2014, Additional history | | | | | exists | | + + + + + | Pneumococcal | Completed | 12/24/2013, 07/30/2013 | | | vaccination | | | | + + + [...] + +--------+ | MEDICARE | MEDICA | xxxxxxxxxxx | Effect | [phone] | [address] | Medica | | | RE A & | | meera | 1 | [address] | re | | | B | | for | | [place], [place] | | | | | | all | | [address] | | | | | | dates | | | | + +--------+ +--------+ + +--------+ | | TRICAR | xxxxxxxxx | | [phone] | | Indemn | | | E [...] | | [address] | | | al/[place] | | 1951 | [phone] | [place] [address] | | | [place] | | | 2 (Home) | | + +--------+ +--------+ + +
--- OUTSIDE RECORDS SUMMARY | ~2019-09-03 | XMS | Encounter Summary ---
Demographics + + + | Address | [address] | | | [place] [address] | + + + | Home Phone [...] | Author | [facility] | | | and [place] | + + + | Organization | [facility] | [...] [place] | | | | | [address] | | + + + + + | Santo Cervantes | ECON | Unknown | | + + + + + Care Team Providers + +------+ + | Care Biller Name | Role | Phone | + [...] | | radiculopath | BECCA Mejia | [facility] | | | | | y Spinal | [address] | [address] | | | | | stenosis, | [address] | [address]VE | | | | | lumbar DDD | [place] | [place] | | | | | (degenerativ | [address] | [address] | | | | | e disc | Phone: | Phone: | | | | | disease), | [phone] | [phone] | | | | | lumbar | Fax: | Fax: | | | | | Procedures | [phone] | [phone] | | | | | MRI Lumbar [...] + + | 10/09/ | Office | [facility] | Jovan Alford | Lumbar radiculopathy | | 2015 | Visit | NEUROSURGERY [address] | [address] | (Primary Dx); | | | | [address] | [address] | Spinal stenosis, | | | | [place], [place] | [place] [address] | lumbar; DDD | | | | [address] | [phone] | (degenerative disc | | | | [phone] | | disease), lumbar | +--------+---------+ + [...] from the original. .. STEVE [place] [address] [facility], [address] [place], [place] [id number] FAX: NEUROSURGERY FOLLOW-UP CHIEF COMPLAINT: Chief Complaint [...] 75 mg by mouth 2 times daily. [place]-3 Krill Oil 500 MG CAPS Take 1 [...] right side. This was present prior to carbaajl rgery but had resolved completely his postoperative [...]
--- OUTSIDE RECORDS SUMMARY | ~2019-09-03 | XMS | Encounter Summary ---
Demographics + + + | Address | [address] | | | [place] [address] | + + + | Home Phone [...] Author | [facility] | | | and [place] | + + + | Organization | [facility] | | [...] [place] | | | | | [address] | | + + + + + | Santo Cervantes | ECON | Unknown | | + + + + + Care Team Providers + +------+ + | Care Painter Aircraft Name | Role | Phone | + +------+ + | Shubham Maurer MD | PCP | | + +------+ + Encounter Details +--------+ + + + + | Date | Type | Department | Care Team | Description | +--------+ + + + + | 03/05/ | Orders Only | [facility] | Min Tello MD | Lumbar radiculopathy | | 2015 | | NEUROSURGERY [address] | [address] | (Primary Dx); Other | | | | [address] | [place] [address] | secondary | | | | [place] | [phone] | scoliosis, lumbar | | | | [address] | | region; Degenerative | | | | [phone] | | disc disease, | | | [...] | | | | MARYAM VILLALPANDO MD ([id number]) | | | | | | on [...] + | [facility] | [address] | [place] | [phone] | | [facility] | | [address] | | | - IMAGING | | [...] + | [facility] | [address] | [place] | [phone] | | [facility] | | [address] | | | - LABORATORY | | [...] mL/min/1.73m2 | [facility] | | | [place] | | | MEDICAL | | | [...] [address] | [place] | [phone] | | [facility] | | [address] | | | - LABORATORY | | [...]
--- OUTSIDE RECORDS SUMMARY | ~2019-09-03 | XMS | Encounter Summary ---
Demographics + + + | Address | [address] | | | [place] [address] | + + + | Home Phone | | + + + | Preferred Language | Unknown | + + + | Marital Status | Single | + + + | Catholic Affiliation | 1077 | + + + | Race | Unknown | + + + | Ethnic Group | Unknown | + + + Author + + + | Author | [facility] | | | and [place] | + + + | Organization | [facility] | | | and [place] | [...] [place] | | | | | [address] | | + + + + + | Santo Cervantes | ECON | Unknown | | + + + + + Care Team Providers + +------+ + | Care Welt Pocket Machine Operator Name | Role | Phone [...] | | [address] | [place] [address] | | | | | [place] | [phone] | | | | | [address] | | | | | | [phone] | | | +--------+ + + + [...]
--- OUTSIDE RECORDS SUMMARY | ~2019-09-03 | XMS | Encounter Summary ---
Demographics + + + | Address | [address] | | | [place] [address] | + + + | Home Phone [...] + + + | Author | and [facility] | | | and [place] | + + + | Organization | [facility] | | | and [place] [...] [place] | | | | | [address] | | + + + + + | Santo Cervantes | ECON | Unknown | | + + + + + Care Team Providers + +------+ + | Care It Applications Analyst Name | Role | Phone | [...] | | | | | | | DC TOTAL | | | | | | [...] + + | 12/19/ | Hospital | [facility] | Julius Nowak | Primary | | 2018 - | Encounter | MED CTR SURGICAL | MD Liliana [address] [facility] | osteoarthritis of | | | | [address] | [place] | right knee | | 12/22/ | | [place] [address] | [address] | | | 2017 | | [phone] | | | +--------+ + + + [...] Physician Discharge Summary Patient ID: Raúl Day [id number] y.o. 1950 Admit date: 12/19/2017 Discharge [...] felt to be ready for transfer to [facility] on 12/22/17. Consults: none Significant Diagnostic Studies: radiology: X-Ray: Right total knee arthroplasty. Treatments: therapies: PT Discharge Exam: Intact, recent right total knee arthroplasty. Disposition: [facility] Patient Instructions: Discharge Medications New [...] mg of acetaminophen (Tylenol) per day. Hydrocodone-acetaminophen (Dodge ) and Oxycodone-acetaminophen (Percocet) have 325 mg [...] within 3 days after discharge, contact the doc tor's office. documented in this encounter Medications at [...] | | | (TYLENOL) 500 mg | mouth [...] no signi ficant hemarthrosis. Plan: Transfer to [facility] for rehab/ PT RTC 01/03 for staple removal. ulius Nowak MD - 12/21/2017 1:50 PM PDT Raúl Day SUBJECTIVE: Some pain as expected with nausea due to pain medication. Otherwise, no complaints. OBJECTIVE: Vitals with Comments 12/20/2017 12/20/2017 12/20/2017 12/21/2017 SYSTOLIC 98 98 112 105 DIASTOLIC 53 50 57 60 BP Comments - - - - Pulse 61 68 66 65 Temp 97.9 97.6 98.6 98.6 Resp 20 18 18 18 Weight - - - - Height [...] Intake/Output Summary (Last 24 hours) at 12/20/17 0817 Last data filed at 12/20/17 0814 Gross [...] Julius Nowak MD documented in this encounter Plan of Treatment [...] (L) | 40.0 - 51.0 % | [facility] [...] ST. | [address] | [place], [place] | [phone] | | [facility] | | [address] | | | - LABORATORY | | [...] | | | | | mg/dL | [facility] | | | | | | MEDICAL | | | | | | CENTER - | | | | | | LABORATORY | | + + + + + + | eGFR if not | >60Comment: GLOMERULAR | >=60 | [facility] | | | | FILTRATION | mL/min/1.73m2 | [facility] | | | [place] | RATE,ESTIMATED | | MEDICAL | | | | mL/min/1.10l2Zlan than | | CENTER - | | [...] | | | | | mg/dL | [facility] | | | | | | MEDICAL [...] | [address] | [place] | [phone] | | [facility] | | [address] | | | - LABORATORY | | [...] + | Reggie Smith Results In - 12/19/2017 2:32 PM PDT [...] | | | | | Oral, ONCE, Tue12/19/17 at 1030, | | AM PDT | [...]
--- OUTSIDE RECORDS SUMMARY | ~2019-09-03 | XMS | Encounter Summary ---
Demographics + + + | Address | [address] | | | [place] [address] | + + + | Home Phone [...] + + + | Author | [facility] | | | and [place] | + + + | Organization | [facility] | | | and [...] [place] | | | | | [address] | | + + + + + | Santo Cervantes | ECON | Unknown | | + + + + + Care Team Providers + +------+ + | Care Design Checker Name | Role | Phone | [...] [place] | | | | | [address] [facility] | [place] | | | | | [place] | [address] | | | | | [address] | | | | | | [phone] | | | +--------+ + + + [...]
--- OUTSIDE RECORDS SUMMARY | ~2019-09-03 | XMS | Encounter Summary ---
Demographics + + + | Address | [address] | | | [place] [address] | + + + | Home Phone [...] | Author | [facility] | | | and [place] | + + + | Organization | [facility] | [...] [place] | | | | | [address] | | + + + + + | Santo Cervantes | ECON | Unknown | | + + + + + Care Team Providers + +------+ + | Care Digital Circuit Designer Name | Role | Phone | [...] 2017 | Changes | ORTHOPEDIC SURGERY | Mitten Stitcher | | | | | [place] | | | | | | [place] | | | | | | [address] | | | | | | [phone] | | | +--------+ + + + [...]
--- OUTSIDE RECORDS SUMMARY | ~2019-09-03 | XMS | Encounter Summary ---
Demographics + + + | Address | [address] | | | [place] [address] | + + + | Home Phone [...] | Author | [facility] | | | and [place] | + + + | Organization | [facility] [...] [place] | | | | | [address] | | + + + + + | Santo Cervantes | ECON | Unknown | | + + + + + Care Team Providers + +------+ + | Care Metal Refiner Name | Role | Phone | + +------+ + | Shubham Maurer MD | PCP | | + +------+ + Encounter Details +--------+ + + + + | Date | Type | Department | Care Team | Description | +--------+ + + + + | 06/15/ | [facility] | [facility] | Min Tello MD | Status post lumbar | | 2017 | Encounter | MED CTR XRAY [address] | [address] | spinal fusion | | | | [address] [address] | [place] [address] | | | | | [place] [address] | [phone] | | | | | [phone] | | | +--------+ + + + [...] | + + + +---------+--------+ + | [place]-3 Fatty | Take 2 capsules by | [...] CT dated December 15, 2015. Radiographs | [facility] | | dated October 20, 2015. FINDINGS: Frontal and lateral views of the [facility] | | lumbar spine. Posterior [...] ST. | [address] | [place], [place] | [phone] | | [facility] | | [address] | | | - IMAGING | | | | + + + + + documented in this encounter Visit Diagnoses + + | Diagnosis | + + | Status post lumbar spinal fusion Arthrodesis status | + + documented in this encounter"
--- OUTSIDE RECORDS SUMMARY | ~2019-09-03 | XMS | Encounter Summary ---
Demographics + + + | Address | [address] | | | [place] [address] | + + + | Home Phone | | + + + | Preferred Language | Unknown | + + + | Marital Status | Single | + + + | Congregation Affiliation | 1077 | + + + | Race | Unknown | + + + | Ethnic Group | Unknown | + + + Author + + + | Author | [facility] | | | and [place] | + + + | Organization | [facility] | | | and [...] [place] | | | | | [address] | | + + + + + | Santo Cervantes | ECON | Unknown | | + + + + + Care Team Providers + +------+ + | Care Coin Box Inspector Name | Role | Phone | [...] | | | | | | | ME TOTAL | | | | | | [...] 12/19/ | Surgery | [facility] | Julius Nowak | RIGHT ARTHROPLASTY | | 2018 | | MED CTR OR INTRA OP | MD Liliana [address] [facility] | KNEE | | | | [address] | [place] | | | | | [place] | [address] | | | | | [address] | | | | | | [phone] | | | +--------+---------+ + + + [...] Physician Discharge Summary Patient ID: Raúl Day [id number] y.o. 1950 Admit date: 12/19/2017 Discharge [...] felt to be ready for transfer to [facility] [place] on 12/22/17. Consults: none Significant Diagnostic Studies: radiology: X-Ray: Right total knee arthroplasty. Treatments: therapies: PT Discharge Exam: Intact, recent right total knee arthroplasty. Disposition: [facility] Patient Instructions: Discharge Medications New Medications Details [...] with Dr. Nowak in 12 days. Signed: uJlius Nowak MD 12/22/2017 13:01 documented in th [...] mg of acetaminophen (Tylenol) per day. Hydrocodone-acetaminophen (Alvord ) and Oxycodone-acetaminophen (Percocet) have 325 mg [...] no signi ficant hemarthrosis. Plan: Transfer to [facility] for rehab/ PT RTC 01/03 for staple [...] [address] | [place] | [phone] | | [facility] | | [address] | | | - LABORATORY | | [...] | | | FILTRATION | mL/min/1.73m2 | [facility] | | | [place] | RATE,ESTIMATED | | MEDICAL | | | | mL/min/1.18v4Qhcj than | | CENTER - | | [...] | ine Ratio | | | ST[facility]iana [facility] | | | | [...] + + | [facility] | [address] | [place] | [phone] | | [facility] | | [address] | | | - LABORATORY | | [...] | | | | | | Infiltration, VIDEO PRODUCTION SPECIALIST, Starting | | | | | | [...]
--- OUTSIDE RECORDS SUMMARY | ~2019-09-03 | XMS | Encounter Summary ---
Demographics + + + | Address | [address] | | | [place] [address] | + + + | Home Phone | | + + + | Preferred Language | Unknown | + + + | Marital Status | Single | + + + | Voodoo Affiliation | 1077 | + + + | Race | Unknown | + + + | Ethnic Group | Unknown | + + + Author + + + | Author | [facility] | | | and [place] | + + + | Organization | [facility] [...] [place] | | | | | [address] | | + + + + + | Santo Cervantes | ECON | Unknown | | + + + + + Care Team Providers + +------+ + | Care Medical Records Receptionist Name | Role | Phone | + [...] | | | | | | | RI TOTAL | | | | | | [...] + + | 12/19/ | Hospital | [facility] | Julius Nowak | Primary | | 2018 - | Encounter | MED CTR SURGICAL | MD [address] [facility] | osteoarthritis of | | | | [address] [place] | [place] | right knee | | 12/22/ | | [place] [address] | 173[address] | | | 2017 | | [phone] | | | +--------+ + + + [...] Physician Discharge Summary Patient ID: Raúl Day [id number] y.o. 1950 Admit date: 12/19/2017 Discharge [...] to be ready for transfer to [facility] [place] on 12/22/17. Consults: none Significant Diagnostic Studies: radiology: X-Ray: Right total knee arthroplasty. Treatments: therapies: PT Discharge Exam: Intact, recent right total knee arthroplasty. Disposition: [facility] Patient Instructions: Discharge Medications New [...] mg of acetaminophen (Tylenol) per day. Hydrocodone-acetaminophen ([place] ) and Oxycodone-acetaminophen (Percocet) have 325 mg [...] no signi ficant hemarthrosis. Plan: Transfer to [facility] for rehab/ PT RTC 01/03 for [...] ST[address] | [address] | [place], [place] | [phone] | | [facility] | | [address] | | | - LABORATORY | | [...] | | | | | mg/dL | [facility] | | | | | | MEDICAL | | | | | | CENTER - | | | | | | LABORATORY | | + + + + + + | eGFR if not | >60Comment: GLOMERULAR | >=60 | [facility] | | | | FILTRATION | mL/min/1.73m2 | [facility] | | | [place]BANIAN | RATE,ESTIMATED | | MEDICAL | | | | mL/min/1.75c0Wwct than | | CENTER - | | [...] | | | | | mg/dL | [facility] | | | | | | MEDICAL [...] [address] | [place] | [phone] | | [facility] | | [address] | | | - LABORATORY | | [...]
--- OUTSIDE RECORDS SUMMARY | ~2019-09-03 | XMS | Encounter Summary ---
Demographics + + + | Address | [address] | | | [place] [address] | + + + | Home Phone [...] + | Author | [facility] | | | and [place] | + + + | Organization | [facility] | | | and [...] [place] | | | | | [address] | | + + + + + | Santo Cervantes | ECON | Unknown | | + + + + + Care Team Providers + +------+ + | Care Fruit Thinner Name | Role | Phone | + [...] + + | 03/06/ | Office | [facility] | Damian Escobedo | Status post right | | 2018 | Visit | ORTHOPEDIC SURGERY | [address] | knee replacement | | | | [address] [facility] | [address] [place] | (Primary Dx) | | | | [place], [place] | [place] [address] | | | | | [address] | [phone] | | | | | [phone] | | | +--------+---------+ + + + [...] from the original. Name:Raúl Day Todays Date: 03/06/2018 Age: 67 y.o. PCP: Shubham Maurer MD Chief Complaint Patient presents with Post Op right total knee arthroplasty DOS 12/19/17 SUBJECTIVE: Postoperative visit for right total knee arthroplasty performed on 12/19/17. This pain over lying the minimal and well-controlled. He is not taking any prescribed ueoc-bjp-iggmvox johanna n medication. He is doing physical therapy in [place] and doing well. Current level pain is [...] 14:25 This note was dictated using the Scivantage voice recognition system. Minor errors in grammar may have occurred. documented in t his encounter Plan of Treatment Not on filedocumented as of this encounter Visit Diagnoses + + | Diagnosis | + + | Status post right knee replacement - Primary | + + documented in this encounter
--- OUTSIDE RECORDS SUMMARY | ~2019-09-03 | XMS | Encounter Summary ---
Demographics + + + | Address | [address] | | | [place] [address] | + + + | Home Phone [...] + | Author | [facility] | | | and [place] | + + + | Organization | [facility] | | [...] [place] | | | | | [address] | | + + + + + | Santo Cervantes | ECON | Unknown | | + + + + + Care Team Providers + +------+ + | Care Skull Chopper Name | Role | Phone | + [...] | | | | Procedures | [place] [address] | [address] Phone: | | | | | FOLLOW UP | Phone: | [phone] | | | | | | [phone] | Fax: | | | | | | Fax: | [phone] | | | | | | [phone] | | +--------+--------+ + + + + [...] | | | | [place] | [address] | Dx); Primary | | | | [address] | | osteoarthritis of | | | | [phone] | | left knee | +--------+---------+ + [...] con tinue to manage his symptoms with qaeu-stp-haqkwyc medication and will contact us in the [...]
--- OUTSIDE RECORDS SUMMARY | ~2019-09-03 | XMS | Encounter Summary ---
Demographics + + + | Address | [address] | | | [place] [address] | + + + | Home Phone [...] Author | [facility] | | | and [place] | + + + | Organization | [facility] | | [...] [place] | | | | | [address] | | + + + + + | Santo Cervantes | ECON | Unknown | | + + + + + Care Team Providers + +------+ + | Care Supervisor Ornamental Ironworking Name | Role | Phone | + +------+ + | Shubham Maurer MD | PCP | | + +------+ + Encounter Details +--------+ + + + + | Date | Type | Department | Care Team | Description | +--------+ + + + + | 06/03/ | Hospital | [facility] | Jovan Alford | Lumbar | | 2016 | Encounter | MED CTR XRAY [address] | [address] | radiculopathy; S/P | | | | [place] | [address] | lumbar fusion | | | | [place] [address] | [place] [address] | | | | | [phone] | [phone] | | | | | | | [...] + + + +---------+ + + | UMO-IXQ-Ycihvyk E | Take 2 capsules by | [...] + + + +---------+ + + | [place]-3 Krill Oil | Take 2 capsules by [...] through S1 with spacer hardware at these [facility] | | levels. Moderate spondylosis is [...] [address] | [place] | [phone] | | [facility] | | [address] | | | - IMAGING | | | | + + + + + documented in this encounter Visit Diagnoses + + | Diagnosis | + + | Lumbar radiculopathy Thoracic or lumbosacral neuritis or radiculitis, unspecified | + + | S/P lumbar fusion Arthrodesis status | + + documented in this encounter"
--- OUTSIDE RECORDS SUMMARY | ~2019-09-03 | XMS | Encounter Summary ---
Demographics + + + | Address | [address] | | | [place] [address] | + + + | Home Phone [...] Author | [facility] | | | and [place] | + + + | Organization | [facility] | | | and [...] [place] | | | | | [address] | | + + + + + | Santo Cervantes | ECON | Unknown | | + + + + + Care Team Providers + +------+ + | Care Product Safety Officer Name | Role | Phone | [...] Radiology | Diagnoses | Min Tello | [facility] | | | | | Neck pain, | MD [address] | [address] | | | | | acute Left | [address] | [place], | | | | | arm pain | [place], | [place] | | | | | Left arm | [place] [address] | [address] | | | | | numbness | Phone: | Phone: | | | | | Other | [phone] | [phone] | | | | | osteoarthrit | Fax: | Fax: | | | | | is of spine, | [phone] | [phone] | | | | | cervical | [...] | 02/28/ | Office | [facility] | Min Tello MD | 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 Min Tello MD [address] [place] [address], [address] [place] [address] FAX: NEUROSURGERY FOLLOW-UP CHIEF COMPLAINT: [...] capsule Take 1,000 Units by mouth Daily. UVI-VEL-Pkvrxpq E (OMEGA-3 COMPLEX PO) Take 2 capsules by mouth Daily. diclofenac (VOLTAREN) 75 mg EC tablet Take 75 mg by mouth 2 times daily. FERROUS SULFATE PO Take by mouth Daily. [place]-3 Krill Oil 500 MG CAPS Take 1 [...] has no apparent deficits with short or long-term memory. CRANIAL NERVES: II: Acuity is intact. [...] Intrinsics 5 5 Ulnar Intrinsics 5 5 Sample Puller Strength 5 5 Hip Flexion 5 5 [...] and left arm symptoms COMPARISON: None. | [facility] | | TECHNIQUE: Multiplanar multisequence MR imaging of the cervical spine | [facility] | | without contrast. This is performed [...] [address] | [place] | [phone] | | [facility] | | [address] | | | - IMAGING | | [...]
--- OUTSIDE RECORDS SUMMARY | ~2019-09-03 | XMS | Encounter Summary ---
Demographics + + + | Address | [address] | | | [place] [address] | + + + | Home Phone | | + + + | Preferred Language | Unknown | + + + | Marital Status | Single | + + + | Adventism Affiliation | 1077 | + + + | Race | Unknown | + + + | Ethnic Group | Unknown | + + + Author + + + | Author | [facility] | | | and [place] | + + + | Organization | [facility] | | | and [place] | [...] [place] | | | | | [address] | | + + + + + | Santo Cervantes | ECON | Unknown | | + + + + + Care Team Providers + +------+ + | Care Plasterer Journeyman Name | Role | Phone | + [...] | | [address] | [place] [address] | osteoarthritis of | | | | [place] | [phone] | spine, cervical | | | | [address] | | region | | | | [phone] | | | +--------+ + + + [...]
--- OUTSIDE RECORDS SUMMARY | ~2019-09-03 | XMS | Encounter Summary ---
Demographics + + + | Address | [address] | | | [place] [address] | + + + | Home Phone [...] | Author | [facility] | | | and [place] | + + + | Organization | [facility] | | | and [...] [place] | | | | | [address] | | + + + + + | Santo Cervantes | ECON | Unknown | | + + + + + Care Team Providers + +------+ + | Care Ob/Gyn Doctor Name | Role | Phone | + [...] | Procedures | MD [address] | [facility] [address] | | | | | [place] OFFICE | [address] | [place], [place] | | | | | CONSULTATION | [address] | [address] | | | | | NEW/ESTAB | [place], | Phone: | | | | | PATIENT 60 | [place] | [phone] | | | | | MIN | [address] | Fax: | | | | | | Phone: | [phone] | | | | | | [phone] | | | | | | | Fax: | | | | | | | [phone] | | +--------+--------+ + + + + [...] | | [address] | [place] [address] | presence unspecified | | | | [place] | [phone] | (Primary Dx); | | | | [address] | | Lumbar scoliosis; | | | | [phone] | | Degenerative disc | | | [...] from t he original. Min Tello MD [address] [place] [address], [address] [place], [place] [address] FAX: NEUROSURGERY HISTORY AND PHYSICAL EXAMINATION CHIEF [...] capsule Take 1,000 Units by mouth Daily. DHS-WYS-Tbirxuu E (OMEGA-3 COMPLEX PO) Take 2 capsules by mouth Daily. diclofenac (VOLTAREN) 75 mg EC tablet Take 75 mg by mouth 2 times daily. FERROUS SULFATE PO Take by mouth Daily. [place]-3 Krill Oil 500 MG CAPS Take 1 [...] has no apparent deficits with short or fdc memory. CRANIAL NERVES: II: Acuity is intact. [...] Intrinsics 5 5 Ulnar Intrinsics 5 5 Extrusion Die Repair Manager Strength 5 5 Hip Flexion 5 5 [...]
--- OUTSIDE RECORDS SUMMARY | ~2019-09-03 | XMS | Encounter Summary ---
Demographics + + + | Address | [address] | | | [place] [address] | + + + | Home Phone | | + + + | Preferred Language | Unknown | + + + | Marital Status | Single | + + + | Jainism Affiliation | PRO | + + + [...] Team Providers + +------+ + | Care Asset Specialist Name | Role | Phone | [...] | | | | [address] | [place] [address] | | | | | [place], [place] | [phone] | | | | | [address] | | | | | | [phone] | | | +--------+ + + + [...]
--- OUTSIDE RECORDS SUMMARY | ~2019-09-03 | XMS | Encounter Summary ---
Demographics + + + | Address | [address] | | | [place] [address] | + + + | Home Phone [...] + + | Author | [facility] | | | and [place] | + + + | Organization | [facility] | | | and [place] [...] [place] | | | | | [address] | | + + + + + | Santo Cervantes | ECON | Unknown | | + + + + + Care Team Providers + +------+ + | Care Stock Handler Name | Role | Phone | + [...] | | | | | | | NM TOTAL | | | | | | [...] [place] INTRA OP | MD [address] [facility] | [place] | | | | [address] | [place] | | | | | [place] | [address] | | | | | [address] | | | | | | [phone] | | | +--------+---------+ + + + [...] Physician Discharge Summary Patient ID: Raúl Day [id number] y.o. 1950 Admit date: 12/19/2017 Discharge [...] felt to be ready for transfer to [facility] [place] on 12/22/17. Consults: none Significant Diagnostic Studies: radiology: X-Ray: Right total knee arthroplasty. Treatments: therapies: PT Discharge Exam: Intact, recent right total knee arthroplasty. Disposition: [facility] Patient Instructions: Discharge Medications New [...] mg of acetaminophen (Tylenol) per day. Hydrocodone-acetaminophen ([place] ) and Oxycodone-acetaminophen (Percocet) have 325 mg [...] no signi ficant hemarthrosis. Plan: Transfer to [facility] for rehab/ PT RTC 01/03 [...] [address] | [place] | [phone] | | [facility] | | [address] | | | - LABORATORY | | [...] | | | FILTRATION | mL/min/1.73m2 | [facility] | | | [place] | RATE,ESTIMATED | | MEDICAL | | | | mL/min/1.26z5Bvcc than | | CENTER - | | [...] | ine Ratio | | | [facility] | | | | | | [...] [address] | [place] | [phone] | | [facility] | | [address] | | | - LABORATORY | | [...] | | | | | | Infiltration, ELEVATOR INSTALLER APPRENTICE, Starting | | | | | | [...]
--- OUTSIDE RECORDS SUMMARY | ~2019-09-03 | XMS | Encounter Summary ---
Demographics + + + | Address | [address] | | | [place] [address] | + + + | Home Phone [...] + | Author | [facility] | | | and [place] | + + + | Organization | [facility] [place] [...] [place] | | | | | [address] | | + + + + + | Santo Cervantes | ECON | Unknown | | + + + + + Care Team Providers + +------+ + | Care Collection Systems Modeler Name | Role | Phone | + [...] 2017 | Changes | ORTHOPEDIC SURGERY | Manager Utilization | | | | | [address] [place] | | | | | | [place] | | | | | | [address] | | | | | | [phone] | | | +--------+ + + + [...]
--- OUTSIDE RECORDS SUMMARY | ~2019-09-03 | XMS | Encounter Summary ---
Demographics + + + | Address | [address] | | | [place] [address] | + + + | Home Phone [...] | Author | [facility] | | | and [place] | + + + | Organization | [facility] [...] [place] | | | | | [address] | | + + + + + | Santo Cervantes | ECON | Unknown | | + + + + + Care Team Providers + +------+ + | Care Leak Detector Name | Role | Phone | + [...] + + | 03/06/ | Office | [facility] | Damian Escobedo | Status post right | | 2018 | Visit | ORTHOPEDIC SURGERY | [address] | knee replacement | | | | [address] [facility] | [address] [place] | (Primary Dx) | | | | [place], [place] | [place] [address] | | | | | [address] | [phone] | | | | | [phone] | | | +--------+---------+ + + + [...] well-controlled. He is not taking any prescribed xvqd-upr-cvynnzp johanna n medication. He is doing physical therapy in [place] and doing well. Current level pain is [...] 14:25 This note was dictated using the [email or web address] voice recognition system. Minor errors in grammar may have occurred. documented in t his encounter Plan of Treatment Not on filedocumented as of this encounter Visit Diagnoses + + | Diagnosis | + + | Status post right knee replacement - Primary | + + documented in this encounter
--- OUTSIDE RECORDS SUMMARY | ~2019-09-03 | XMS | Encounter Summary ---
Demographics + + + | Address | [address] | | | [place] [address] | + + + | Home Phone [...] | Author | [facility] | | | and [place] | + + + | Organization | [facility] | | | and [...] [place] | | | | | [address] | | + + + + + | Santo Cervantes | ECON | Unknown | | + + + + + Care Team Providers + +------+ + | Care Senior Communications Engineer Name | Role | Phone | + +------+ + | Shubham Maurer MD | PCP | | + +------+ + Encounter Details +--------+ + + + + | Date | Type | Department | Care Team | Description | +--------+ + + + + | 11/08/ | Hospital | [facility] | Julius Nowak | Pain in both knees, | | 2018 | Encounter | MED CTR [facility]NA [facility] | MD [address] [facility] | unspecified | | | | [address] [place] | [place] | chronicity | | | | [place] | [address] | | | | | [address] | | | | | | [phone] | | | +--------+ + + + [...] | + + + +---------+--------+ + | Merkel-3 Fatty | Take 2 capsules by | [...]
--- OUTSIDE RECORDS SUMMARY | ~2019-09-03 | XMS | Encounter Summary ---
Demographics + + + | Address | [address] | | | [place] [address] | + + + | Home Phone | | + + + | Preferred Language | Unknown | + + + | Marital Status | Single | + + + | Shinto Affiliation | 1077 | + + + | Race | Unknown | + + + | Ethnic Group | Unknown | + + + Author + + + | Author | [facility] | | | and [place] | + + + | Organization | [facility] | | | and [...] [place] | | | | | [address] | | + + + + + | Santo Cervantes | ECON | Unknown | | + + + + + Care Team Providers + +------+ + | Care Drug Safety Assistant Name | Role | Phone | [...] | ORTHOPEDIC SURGERY | MD [address] [facility] | osteoarthritis of | | | | [address] [place] [address] | [place] | left knee (Primary | | | | [place] | [address] | Dx) | | | | [address] | | | | | | [phone] | | | +--------+---------+ + + + [...]
--- OUTSIDE RECORDS SUMMARY | ~2019-09-03 | XMS | Encounter Summary ---
Demographics + + + | Address | [address] | | | [place] [address] | + + + | Home Phone [...] | [facility] | | | and [place] | + + + | Organization | [facility] | [...] [place] | | | | | [address] | | + + + + + | Santo Cervantes | ECON | Unknown | | + + + + + Care Team Providers + +------+ + | Care Patient Flow Coordinator Name | Role | Phone | [...] + | 10/15/ | Telephone | [facility] | Jovan Alford | LABS | | 2015 | | NEUROSURGERY [address] | [address] | | | | | [facility] | [place] [address] | | | | | [place] | [place] [address] | | | | | [address] | [phone] | | | | | [phone] | | | +--------+ + + + [...]
--- OUTSIDE RECORDS SUMMARY | ~2019-09-03 | XMS | Encounter Summary ---
Demographics + + + | Address | [address] | | | [place] [address] | + + + | Home Phone [...] | Author | [facility] | | | and [place] | + + + | Organization | [facility] | | | and [place] [...] [place] | | | | | [address] | | + + + + + | Santo Cervantes | ECON | Unknown | | + + + + + Care Team Providers + +------+ + | Care Shift Coordinator Name | Role | Phone | [...] | | [address] | [place] [address] | laterality (Primary | | | | [place] | [phone] | Dx) | | | | [address] | | | | | | [phone] | | | +--------+ + + + [...]
--- OUTSIDE RECORDS SUMMARY | ~2019-09-03 | XMS | Encounter Summary ---
Demographics + + + | Address | [address] | | | [place] [address] | + + + | Home Phone | | + + + | Preferred Language | Unknown | + + + | Marital Status | Single | + + + | Quaker Affiliation | 1077 | + + + | Race | Unknown | + + + | Ethnic Group | Unknown | + + + Author + + + | Author | [facility] | | | and [place] | + + + | Organization | [facility] | | | and [place] [...] [place] | | | | | [address] | | + + + + + | Santo Cervantes | ECON | Unknown | | + + + + + Care Team Providers + +------+ + | Care Rapid Outsole Stitcher Name | Role | Phone | + [...] SUSANA | | | | | [address] [facility] | [place] | | | | | [place] | [address] | | | | | [address] | | | | | | [phone] | | | +--------+--------+ + + + [...]
--- OUTSIDE RECORDS SUMMARY | ~2019-09-03 | XMS | Encounter Summary ---
Demographics + + + | Address | [address] | | | [place] [address] | + + + | Home Phone | | + + + | Preferred Language | Unknown | + + + | Marital Status | Single | + + + | Zoroastrian Affiliation | PRO | + + + [...] Team Providers + +------+ + | Care Tea Taster Name | Role | Phone | + [...] | | | | | radiculopath | [place], | | | | | | y [place] | [place] [address] | | | | | | (degenerativ | Phone: | | | | | | e disc | [phone] | | | | | | disease), | Fax: | | | | | | cervical | [phone] | | | | | | Cervical [...] | Lumbar | Epic Brittanyt | MD Nazai [address] | | | | | scoliosis | | [address] | | | | | Degenerative | | [address] | | | | | disc | | [place], [place] | | | | | disease, | | [address] | | | | | lumbar | | Phone: | | | | | Facet | | [phone] | | | | | arthropathy, | | Fax: | | | | | lumbar | | [phone] | | | | | Lumbar | [...] | | [address] | [place] [address] | (degenerative disc | | | | [place], [place] | [phone] | disease), cervical; | | | | [address] | | Cervical stenosis of | | | | [phone] | | spinal canal; Other | | [...] from t isabel original. Min Tello MD [facility] [address] [place] [address] [place] [address] NEUROSURGERY HISTORY AND PHYSICAL EXAMINATION CHIEF COMPLAINT: [...] has no apparent deficits with short or nursing home memory. CRANIAL NERVES: II: Acuity is [...] Intrinsics 5 5 Ulnar Intrinsics 5 5 Fishing Guide Strength 5 5 Hip Flexion 4+ 5 [...] stenosis. We will order the imaging at [facility]. We had a general discussion about [...] ed by Rene Hope. Min Tello MD [facility] NEUROSURGERY [address] [place] [address] [address] [place] [id number] Rhianna Roberts MA - 12/26 1:00 PM [...]
--- OUTSIDE RECORDS SUMMARY | ~2019-09-03 | XMS | Encounter Summary ---
Demographics + + + | Address | [address] | | | [place] [address] | + + + | Home Phone | | + + + | Preferred Language | Unknown | + + + | Marital Status | Single | + + + | Taoism Affiliation | 1077 | + + + | Race | Unknown | + + + | Ethnic Group | Unknown | + + + Author + + + | Author | [facility] | | | and [place] | + + + | Organization | [facility] | | | and [place] | [...] [place] | | | | | [address] | | + + + + + | Santo Cervantes | ECON | Unknown | | + + + + + Care Team Providers + +------+ + | Care Engineering Executive Name | Role | Phone | + [...] | | | | y [place] | [address] | [address] | | | | | stenosis of | Phone: | Phone: | | | | | lumbar | [phone] | [phone] | | | | | region | Fax: | Fax: | | | | | Facet | [phone] | [phone] | | | | | arthropathy, | [...] + + | 06/03/ | Office | [facility] | Jovan Alford | Lumbar spinal | | 2016 | Visit | NEUROSURGERY [address] | [address] | stenosis (Primary | | | | [address] | [address] | Dx); Lumbar | | | | [place] | [place] [address] | radiculopathy; | | | | [address] | [phone] | Foraminal stenosis | | | | [phone] | | of lumbar region; | | [...] your back and use good technique when worm picker things and bending. Electronica lly signed by STEVE Ricardo at 06/04/2015 1:38 PM PST documented in this encounter Progress Notes Jovan Alford PA - 06/04/2015 1:39 PM PSTFormatting of this note might be differen t from the original. STEVE Mills [address] [facility], [address] [place], [place] [address] FAX: NEUROSURGERY FOLLOW-UP CHIEF COMPLAINT: Chief Complaint [...] needed for Muscle spasms. 90 tablet 3 AGA-HVR-Izrsegg E (OMEGA-3 COMPLEX PO) Take 2 capsules by mouth Daily. lactulose 10 g/15 mL solution Take 30 mLs by mouth Daily as needed. 240 mL PRN [place]-3 Krill Oil 500 MG CAPS Take 1 [...] home today after being a t a care home facility. He did start anti-inflammatories for his [...] priors. FINDINGS: Again seen are hardware | [facility] | | for posterior fusion from L3 through S1 with spacer hardware at these | [facility] | | levels. Slight left curvature of [...] + | [address] | [address] | [place] | [phone] | | [facility] | | [address] | | | - IMAGING | | [...]
--- OUTSIDE RECORDS SUMMARY | ~2019-09-03 | XMS | Clinical Summary ---
Demographics + + + | Address | [address] | | | [place] [address] | + + + | Home Phone | | + + + | Preferred Language | Unknown | + + + | Marital Status | Single | + + + | Presybeterian Affiliation | PRO | + + + [...] Providers + +------+ + | Care Senior Category Manager Name | Role | Phone | + +------+ + | Shubham Maurer MD | PCP | | + +------+ + Source Comments SANTIAGO is fully live on both [facility] and [facility] InPatient.[facility] Allergies No Known Allergies Medications No known [...] | [employer] | xxxxxxxxxxx | Effect | [phone] | [address] | [employer] | | | RE A & | | meera | 1 | [address] | re | | | B | | for | | [place], [place] | | | | | | all | | [address] | | | | | | dates [...] Self | [birth year] | [address] | | | al/[place] | | 1951 | [phone] | [place] [address] | | | [place] | | | 2 (Home) | | + +--------+ +--------+ + +
--- OUTSIDE RECORDS SUMMARY | ~2019-09-03 | XMS | Encounter Summary ---
Demographics + + + | Address | [address] | | | [place] [address] | + + + | Home Phone [...] + | Author | [facility] | | | and [place] | + + + | Organization | [facility] [place] [...] [place] | | | | | [address] | | + + + + + | Santo Cervantes | ECON | Unknown | | + + + + + Care Team Providers + +------+ + | Care Security Supervisor Name | Role | Phone | + +------+ + | Shubham Maurer MD | PCP | | + +------+ + Encounter Details +--------+ + + + + | Date | Type | Department | Care Team | Description | +--------+ + + + + | 08/19/ | Hospital | [facility] | Jovan Alford | Lumbar spinal | | 2016 | Encounter | MED CTR XRAY [address] | [address] | stenosis; Lumbar | | | | [place] | [address] | radiculopathy; | | | | [place] [address] | [place] [address] | Foraminal stenosis | | | | [phone] | of lumbar region; | | | [...] | + + + +---------+--------+ + | [place]-3 Krill Oil | Take 2 capsules by [...] priors. FINDINGS: Again seen are hardware | [employer] | | for posterior fusion from L3 through S1 with spacer hardware at these [facility] | | levels. Slight left curvature [...] + + + + + | [facility] | [address] | [place] | [phone] | | [facility] | | [address] | | | - IMAGING | | [...]
--- OUTSIDE RECORDS SUMMARY | ~2019-09-03 | XMS | Encounter Summary ---
Demographics + + + | Address | [address] | | | [place] [address] | + + + | Home Phone [...] Author | [facility] | | | and [place] | + + + | Organization | [facility] | [...] [place] | | | | | [address] | | + + + + + | Santo Cervantes | ECON | Unknown | | + + + + + Care Team Providers + +------+ + | Care Hand Stapler Name | Role | Phone | + +------+ + | Shubham Maurer MD | PCP | | + +------+ + Encounter Details +--------+ + + + + | Date | Type | Department | Care Team | Description | +--------+ + + + + | 06/15/ | Hospital | [facility] | Jovan Alford | Canceled (OTHER) | | 2016 | Encounter | MED CTR XRAY [address] | [address] | | | | | [place] | [address] | | | | | [place] [address] | [place] [address] | | | | | [phone] | [phone] | | | | | | | [...] | + + + +---------+--------+ + | [place]-3 Fatty | Take 2 capsules by | | 0 | | | | Acids (OMEGA 3 PO) | mouth 2 times daily. | | | | 8 | + + + +---------+--------+ + documented as of this encounter Plan of Treatment Not on filedocumented as of this encounter Visit Diagnoses Not on filedocumented in this encounter"
--- OUTSIDE RECORDS SUMMARY | ~2019-09-03 | XMS | Encounter Summary ---
Demographics + + + | Address | [address] | | | [place] [address] | + + + | Home Phone [...] | Author | [facility] | | | and [place] | + + + | Organization | [facility] | | | and [...] [place] | | | | | [address] | | + + + + + | Santo Cervantes | ECON | Unknown | | + + + + + Care Team Providers + +------+ + | Care Underwater Welder Name | Role | Phone | + [...] + + | 05/01/ | Telephone | [facility] | Min Tello MD | Other | | 2016 | | NEUROSURGERY [address] | [address] | | | | | [address] | [place] [address] | | | | | [place] | [phone] | | | | | [address] | | | | | | [phone] | | | +--------+ + + + [...]
--- OUTSIDE RECORDS SUMMARY | ~2019-09-03 | XMS | Encounter Summary ---
Demographics + + + | Address | [address] | | | [place] [address] | + + + | Home Phone [...] Author | [facility] | | | and [place] | + + + | Organization | [facility] [...] [place] | | | | | [address] | | + + + + + | Santo Cervantes | ECON | Unknown | | + + + + + Care Team Providers + +------+ + | Care Ip Litigation Associate Name | Role | Phone | [...] | | | | spine, | | [place], [place] | | | | | unspecified | | [address] | | | | | scoliosis | | Phone: | | | | | Scoliosis of | | [phone] | | | | | lumbar | | Fax: | | | | | spine, | | [phone] | | | | | unspecified | | | | | | | scoliosis | | | | | | | [M41.9] | | | | | | | Procedures | | | | | | | [place] | | | | | | | [...] + + | 05/05/ | Hospital | [facility] | Min Tello MD | Gait abnormality | | 2016 - | Encounter | MED CTR SURGICAL | [address] | (Primary Dx) | | | | [address] | [place] [address] | | | 05/08/ | | [place] [address] | [phone] | | | 2015 | | [phone] | | | +--------+ + + + [...] might be differen t from the original. [facility] NEUROSURGERY DISCHARGE SUMMARY Patient Name: Raúl Day [...] PO Take 2 capsules by mouth Daily. [place]-3 Krill Oil 500 MG Caps Take 1 [...] Units Take 1,000 Units by mouth Daily. URA-ZXE-Bdblxcd E (OMEGA-3 COMPLEX PO) 2 capsules Take 2 capsules by mouth Daily. [place]-3 Krill Oil 500 MG CAPS 1 capsule [...] + + + +---------+ + + | WWB-JVB-Xpuypqo E | Take 2 capsules by | [...] + + + +---------+ + + | [place]-3 Krill Oil | Take 2 capsules by [...] - 05/08/2015 10:[facility] in a stable condition. Report given to Re at [facility]. Electro nically signed by Katie Delgado RN at 05/08/2015 10:44 AM Jovan Pat P A - 05/07/2015 7:42 AM PST [facility] PROGRESS NOTE Pt. Name/Age/: Raúl Day 65 y.o. 1950 Med. Record Number: [id number] Date of admission: 05/05/2015 Subjective: The patient [...] Intake/Output Summary (Last 24 hours) at 05/07/15 0731 Last data filed at 05/07/15 0505 Gross per 24 hour Intake 1260 ml [...] signed by: Jovan Alford, 05/07/2015 7:42 [facility] Derik Yu, Medical Student - 05/06/2015 [...] placement of hardware for posterior fusion from [id number] S1 with spacer | | hardware at [...]
--- OUTSIDE RECORDS SUMMARY | ~2019-09-03 | XMS | Encounter Summary ---
Demographics + + + | Address | [address] | | | [place] [address] | + + + | Home Phone [...] + + | Author | [facility] | | | and [place] | + + + | Organization | [facility] | | [...] [place] | | | | | [address] | | + + + + + | Santo Cervantes | ECON | Unknown | | + + + + + Care Team Providers + +------+ + | Care Finish Saw Operator Name | Role | Phone | [...] + + | 12/20/ | Telephone | [facility] | Damian Escobedo | Appointment | | 2017 | | ORTHOPEDIC SURGERY | [address] | | | | | [address] [facility] | [place] | | | | | [place] | [place] [address] | | | | | [address] | [phone] | | | | | [phone] | | | +--------+ + + + [...]
--- OUTSIDE RECORDS SUMMARY | ~2019-09-03 | XMS | Encounter Summary ---
Demographics + + + | Address | [address] | | | [place] [address] | + + + | Home Phone [...] Author | [facility] | | | and [place] | + + + | Organization | [facility] | | | and [place] | [...] [place] | | | | | [address] | | + + + + + | Santo Cervantes | ECON | Unknown | | + + + + + Care Team Providers + +------+ + | Care Registered Art Therapist Name | Role | Phone | + [...] | | [address] | [place] [address] | | | | | [place] | [phone] | | | | | [address] | | | | | | [phone] | | | +--------+ + + + [...]
--- OUTSIDE RECORDS SUMMARY | ~2019-09-03 | XMS | Encounter Summary ---
Demographics + + + | Address | [address] | | | [place] [address] | + + + | Home Phone [...] + | Author | [facility] | | | and [place] | + + + | Organization | [facility] | [...] [place] | | | | | [address] | | + + + + + | Santo Cervantes | ECON | Unknown | | + + + + + Care Team Providers + +------+ + | Care Loom Changeover Operator Name | Role | Phone | [...] | | [address] | [place] [address] | | | | | [place] | [phone] | | | | | [address] | | | | | | [phone] | | | +--------+ + + + [...]
--- OUTSIDE RECORDS SUMMARY | ~2019-09-03 | XMS | Encounter Summary ---
Demographics + + + | Address | [address] | | | [place] [address] | + + + | Home Phone [...] | Author | [facility] | | | and [place] | + + + | Organization | [facility] | | | and [place] | [...] [place] | | | | | [address] | | + + + + + | Santo Cervantes | ECON | Unknown | | + + + + + Care Team Providers + +------+ + | Care Director Of Managed Care Name | Role | Phone | + +------+ + | Shubham Maurer MD | PCP | | + +------+ + Encounter Details +--------+ + + + + | Date | Type | Department | Care Team | Description | +--------+ + + + + | 08/19/ | Hospital | [facility] | Jovan Alford | Lumbar spinal | | 2016 | Encounter | MED CTR XRAY [address] | [address] | stenosis; Lumbar | | | | [place] | [address] | radiculopathy; | | | | [place] [address] | [place] [address] | Foraminal stenosis | | | | [phone] | of lumbar region; | | | [...] | + + + +---------+--------+ + | [place]-3 Krill Oil | Take 2 capsules by [...] priors. FINDINGS: Again seen are hardware | [employer] | | for posterior fusion from L3 through S1 with spacer hardware at these [facility] | | levels. Slight left [...] | + + + + + | [facility] | [address] | [place] | [phone] | | [facility] | | [address] | | | - IMAGING | | [...]
--- OUTSIDE RECORDS SUMMARY | ~2019-09-03 | XMS | Encounter Summary ---
Demographics + + + | Address | [address] | | | [place] [address] | + + + | Home Phone | | + + + | Preferred Language | Unknown | + + + | Marital Status | Single | + + + | Christianity Affiliation | 1077 | + + + | Race | Unknown | + + + | Ethnic Group | Unknown | + + + Author + + + | Author | [facility] | | | and [place] | + + + | Organization | [facility] | [...] [place] | | | | | [address] | | + + + + + | Santo Cervantes | ECON | Unknown | | + + + + + Care Team Providers + +------+ + | Care Electronic Publications Specialist Name | Role | Phone | [...] + | 05/08/ | Telephone | [facility] | Damian Escobedo | Other | | 2018 | | ORTHOPEDIC SURGERY | [address] | | | | | [address] [facility] | [address] [place] | | | | | [place] | [place] [address] | | | | | [address] | [phone] | | | | | [phone] | | | +--------+ + + + [...]
--- OUTSIDE RECORDS SUMMARY | ~2019-09-03 | XMS | Encounter Summary ---
Demographics + + + | Address | [address] | | | [place] [address] | + + + | Home Phone [...] + + | Author | [facility] | | | and [place] | + + + | Organization | [facility] | | | and [...] [place] | | | | | [address] | | + + + + + | Santo Cervantes | ECON | Unknown | | + + + + + Care Team Providers + +------+ + | Care Carrot Harvester Name | Role | Phone | + [...] | | | | spine, | | [place], [place] | | | | | unspecified | | [address] | | | | | scoliosis | | Phone: | | | | | Scoliosis of | | [phone] | | | | | lumbar | | Fax: | | | | | spine, | | [phone] | | | | | unspecified | | | | | | | scoliosis | | | | | | | [M41.9] | | | | | | | Procedures | | | | | | | [place] | | | | | | | [...] + + | 05/05/ | Hospital | [facility] | Min Tello MD | | | 2015 | Encounter | MED CTR XRAY [address] | [address] | | | | | [place] | [place] [address] | | | | | [place] [address] | [phone] | | | | | [phone] | | | +--------+ + + + [...] + + + +---------+ + + | DPM-OMH-Sfiqdur E | Take 2 capsules by | [...] + + + +---------+ + + | [place]-3 Krill Oil | Take 2 capsules by [...]
--- OUTSIDE RECORDS SUMMARY | ~2019-09-03 | XMS | Encounter Summary ---
Demographics + + + | Address | [address] | | | [place] [address] | + + + | Home Phone [...] Author | [facility] | | | and [place] | + + + | Organization | [facility] | | | and [place] [...] [place] | | | | | [address] | | + + + + + | Santo Cervantes | ECON | Unknown | | + + + + + Care Team Providers + +------+ + | Care Mint Wafer Depositor Name | Role | Phone | + +------+ + | Shubham Maurer MD | PCP | | + +------+ + Encounter Details +--------+ + + + + | Date | Type | Department | Care Team | Description | +--------+ + + + + | 03/08/ | Hospital | [facility] | Julius Nowak | Left knee pain, | | 2019 | Encounter | MED CTR [place] [facility]IN | MD [address]iana [address] [facility] | unspecified | | | | [address] [place] | [place] | chronicity | | | | [place] | [address] | | | | | [address] | | | | | | [phone] | | | +--------+ + + + [...]
--- OUTSIDE RECORDS SUMMARY | ~2019-09-03 | XMS | Encounter Summary ---
Demographics + + + | Address | [address] | | | [place] [address] | + + + | Home Phone [...] + + + | Author | [facility] | | | and [place] | + + + | Organization | [facility] [...] [place] | | | | | [address] | | + + + + + | Santo Cervantes | ECON | Unknown | | + + + + + Care Team Providers + +------+ + | Care Tax Collection Coordinator Name | Role | Phone | [...] [address] | | | | | [address] [facility] | [address] | | | | | [place] | [place] [address] | | | | | [address] | [phone] | | | | | [phone] | | | +--------+--------+ + + + [...]
[2019-09-03] MEDS ORDERED: CEFADROXIL500 MG PO (12:44)
--- NOTE | 2019-09-03 16:37 | EKG ---
[facility] [address] [facility] [place], [place] [address] Signed Atrial flutter with variable AV block Possible Inferior infarct , age undetermined Abnormal ECG No previous ECGs available Confirmed by KHADRA HILLS MD ([id number]) on 09/03/2019 4:36:44 PM Electronically Signed By: KHADRA HILLS MD 09/03/19 1637 PATIENT NAME: SONIYA MENESES Electrocardiogram DATE OF : 46 PHYSICIAN: KHADRA HILLS MD REPORT #: [id number] REPORT IS CONFIDENTIAL AND NOT TO BE RELEASED WITHOUT AUTHORIZATION
== END 2019-09-03 20:49 | disposition short-term general hospital (02) ==
LOC: ED 12:34
DX: I63.231 Cerebral infarction due to unspecified occlusion or stenosis of right carotid arteries (principal); I48.92 Unspecified atrial flutter; Z79.899 Other long term (current) drug therapy
CPT/HCPCS: 70450; 70496; 70498; 71045; 80053; 84484; 85025; 85610; 85730; 93005; 93010; 99285-25; Q9967

== ENCOUNTER 2019-09-16 14:57 | Emergency (ER) | payer MEDICARE, OTHER ==
[~2019-09-16] VITALS: Ht 172.7 cm; Wt 82.5 kg
[~2019-09-16 14:57] MED LIST changes: +CEFADROXIL500 MG PO
--- OUTSIDE RECORDS SUMMARY | 2019-09-16 15:00 | XMS ---
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 - 2 Visits in 30 Days CARE PROVIDERS There are no care providers on record at this time. Radha has no Care Guidelines for this patient. [place] VISIT COUNT (12 MO.) [facility] T[facility] 2 NOTE: Visits indicate total known visits. ED/C VISIT TRACKING (12 MO.) 09/16/2019 14:[address] [facility] [place] TYPE: Emergency COMPLAINT: - SOB 09/03/2019 12:34 [facility] [place] TYPE: Emergency COMPLAINT: - LEFT ARM NUMBNESS/TINGLING DIAGNOSES: - Cerebral infarction due to unspecified occlusion or stenosis - Anesthesia of skin - Unspecified atrial flutter - Other group home (current) drug therapy INPATIENT VISIT TRACKING (12 MO.) 09/03/2019 23:53 [place] TYPE: Neuro Surgery DIAGNOSES: - Acute embolism and thrombosis of unspecified vein - Hyperlipidemia, unspecified - carotid stenosis - Occlusion and stenosis of right carotid artery - Postprocedural hypotension - Cerebral infarction, unspecified - Unspecified atrial flutter [id number]
[2019-09-16] MEDS ORDERED: CLOPIDOGREL75 MG PO (15:12)
[2019-09-16] MEDS ORDERED: ATORVASTATIN CA80 MG PO (15:12)
[2019-09-16] MEDS ORDERED: ELIQUIS5 MG PO (15:13)
[2019-09-16] MEDS ORDERED: METOPROLOL SUCC50 MG PO (18:15)
[2019-09-17] MEDS ORDERED: METOPROLOL SUCC25 MG PO (05:48)
--- NOTE | 2019-09-17 07:32 | EKG ---
[facility] [address] [facility] [place] [address] Signed Atrial flutter with 3:1 AV conduction Left axis deviation Inferior infarct (cited on or before 03-SEP-2019) Abnormal ECG When compared with ECG of 03-SEP-2019 13:23, Questionable change in initial forces of Inferior leads ST now depressed in Inferior leads T wave inversion more evident in Inferior leads QT has lengthened Confirmed by KHADRA HILLS MD ([id number]) on 09/17/2019 7:32:05 AM Electronically Signed By: KHADRA HILLS MD 09/17/19 0732 PATIENT NAME: SONIYA MENESES Electrocardiogram DATE OF : 46 PHYSICIAN: KHADRA HILLS MD REPORT #: [id number] REPORT IS CONFIDENTIAL AND NOT TO BE RELEASED WITHOUT AUTHORIZATION
== END 2019-09-16 19:00 | disposition home or self-care (01) ==
LOC: ED 14:57
DX: I48.92 Unspecified atrial flutter (principal); Z79.899 Other long term (current) drug therapy; Z79.01 Long term (current) use of anticoagulants
CPT/HCPCS: 71045; 71260; 80053; 83735; 84484; 85025; 93005; 93010; 99285-25; Q9967

== ENCOUNTER 2020-01-09 12:13 | Emergency (ER) | payer MEDICARE, OTHER ==
[~2020-01-09] VITALS: Ht 172.7 cm; Wt 81.7 kg
--- OUTSIDE RECORDS SUMMARY | ~2020-01-09 | XMS | Encounter Summary ---
Demographics + + + | Address | [address] | | | [place] [address] | + + + | Home Phone | | + + + | Preferred Language | Unknown | + + + | Marital Status | Single | + + + | Uatsdin Affiliation | 1077 | + + + | Race | White | + + + | Ethnic Group | Not or | + + + Author + + + | Author | [facility] | | | and [place] | + + + | Organization | [facility] | | | and [place] | + + + | Address | [...] | + + + + + | [address] Viv[address] | ECON | [place] | | | | | [address] | | + + + + + | S[place] Cervantes | ECON | Unknown | | + + + + + Care Team Providers + +------+ + | Care Set Up Mechanic [employer] Name | Role | Phone | + +------+ + | Shubham Maurer MD | PCP | | + +------+ + Encounter Details +--------+ + + + + | Date | Type | Department | Care Team | Description | +--------+ + + + + | 03/08/ | Hospital | [facility] | Julius Nowak | Left knee pain, | | 2019 | Encounter | [facility] | MD [address] [facility] | unspecified | | | | [address] | [place] | chronicity | | | | [place] | [id number] | | | | | [address] | | | | | | [phone] | | | +--------+ + + + + Social [...] on file | | + + + documented as of this encounter Medications at Time of Discharge + + + +---------+ + + | Medication | Sig | Dispensed | Refills | Start | End Date | | | | | | Date | | + + + +---------+ + + | artificial tears | Place 1 drop into | | 0 | | | | (REFRESH TEARS) | both eyes every hour | | | | | | ophthalmic solution | as needed for Dry | | | | | | | Eyes. | | | | | + + + +---------+ + + | cefadroxil | TAKE ONE TABLET THE | 2 | 0 | 09/22/19 | | | (DURICEF) 500 mg | MORNING OF DENTAL | capsule | | 19 | | | capsule | PROCEDURE AND ONE 12 | | | | | | | HOURS LATER | | | | | + + + +---------+ + + documented as of this encounter Plan of Treatment +--------+---------+ + + + | Date | Type | Specialty | Care Team | Description | +--------+---------+ + + + | 01/24/ | Office | Cardiology | Christiano Frost, | | | 2019 | Visit | | MD [address] | | | | | | [place], | | | | | | [place] [address] | | | | | | [phone] | | | | | | | | +--------+---------+ + + + documented as of this encounter Procedures + +--------+ + + + | Procedure Name | Priori | Date/Time | Associated Diagnosis | Comments | | | ty | | | | + +--------+ + + + | XR KNEE LEFT 4 + VW | Routin | 03/08/2019 | Left knee pain, | Results for this | | | e | 2:44 PM | unspecified | procedure are in the | | | | PST | chronicity | results section. 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 Meniscal chondrocalcinosis. Dictated and Signed | | | by: Manpreet Curran MD Electronically signed: 03/08/2019 3:33 PM | | | | | + + + + + + | Narrative | Performed At | + + + | CLINICAL INFORMATION: left knee pain. COMPARISON: 11/08/2017. | [facility] | | FINDINGS: 4 views of the left knee. Bones: No fracture or | | | dislocation. No periostitis. Joints: Right total knee | | | arthroplasty changes. Left moderate medial compartment joint space | | | narrowing. The lateral and patellofemoral joint spaces appear | | | preserved. Small tricompartment osteophyte formation. No joint | | | effusion. Soft tissue: Medial and lateral meniscal | | | chondrocalcinosis. | | + + + + + | Procedure Note | + + | Luis, Rad Results In - 03/08/2019 3:36 PM PST CLINICAL INFORMATION: left knee pain. | | | | COMPARISON: 11/08/2017. | | | | FINDINGS: | | 4 views of the left knee. | | | | Bones: No fracture or dislocation. No periostitis. | | | | Joints: Right total knee arthroplasty changes. Left moderate medial compartment | | joint space narrowing. The lateral and patellofemoral joint spaces appear | | preserved. Small tricompartment osteophyte formation. No joint effusion. | | | | Soft tissue: Medial and lateral meniscal chondrocalcinosis. 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 | | | | Meniscal chondrocalcinosis. | | | | Dictated and Signed by: Manpreet Curran MD | | Electronically signed: 03/08/2019 3:33 PM | + + + +---------+ + + | Performing | Address | City/State/Zipcode | Phone Number | | Organization | | | | + +---------+ + + | [facility] | | | | + +---------+ + + documented in this encounter Visit Diagnoses + + | Diagnosis | + + | Left knee pain, unspecified chronicity | + + documented in this encounter"
--- OUTSIDE RECORDS SUMMARY | ~2020-01-09 | XMS | Encounter Summary ---
Demographics + + + | Address | [address] | | | [place] [address] | + + + | Home Phone | | + + + | Preferred Language | Unknown | + + + | Marital Status | Single | + + + | Yarsani Affiliation | [id number] | + + + | Race | White | + + + | Ethnic Group | Not or | + + + Author + + + | Author | Located Within [facility] | | | and [place] | + + + | Organization | Located Within [facility] | | | and [...] [place] | | | | | [address] | | + + + + + | Santo Cervantes | ECON | Unknown | | + + + + + Care Team Providers + +------+ + | Care Fur Weigher Name | Role | Phone | + +------+ + | Shubham Maurer MD | PCP | | + +------+ + Reason for Visit Auth/Cert +--------+--------+ + + + + | Status | Reason | Specialty | Diagnoses / | Referred By | Referred To | | | | | Procedures | Contact | Contact | +--------+--------+ + + + + | | | | Diagnoses | | | | | | | Primary | | | | | | | osteoarthrit | | | | | | | is of both | | | | | | | knees | | | | | | | (M17.0), | | | | | | | Pain in both | | | | | | | knees, | | | | | | | unspecified | | | | | | | chronicity | | | | | | | (M25.561, | | | | | | | M25.562) | | | | | | | Procedures | | | | | | | [place] TOTAL | | | | | | | KNEE | | | | | | | ARTHROPLASTY | | | | | | | RIGHT | | | | | | | ARTHROPLASTY | | | | | | | KNEE | | | +--------+--------+ + + + + Encounter Details +--------+ + + + + | Date | Type | Department | Care Team | Description | +--------+ + + + + | 12/19/ | Hospital | [facility] | Julius Nowak | Primary | | 2018 - | Encounter | MED [facility] SUR[facility] | MD Liliana [address] [facility] | osteoarthritis of | | | | [address] | [place] | right knee | | 12/22/ | | [place] [address] | [id number] | | | 2018 | | [phone] | | | +--------+ + + + [...] + + + | Blood Pressure | 103/56 | 12/22/2017 7:43 AM | | | | | PDT | | + + + + + | Pulse | 71 | 12/22/2017 7:43 AM | | | | | PDT | | + + + + + | Temperature | 36.4 C (97.5 F) | 12/22/2017 7:43 AM | | | | | PDT | | + + + + + | Respiratory Rate | 18 | 12/22/2017 7:43 AM | | | | | PDT | | + + + + + | Oxygen Saturation | 97% | 12/22/2017 7:43 AM | | | | | PDT | | + + + + + | Inhaled Oxygen | - | - | | | Concentration | | | | + + + + + | Weight | 78.8 kg (173 lb 11.6 | 12/19/2017 10:10 AM | | | | oz) | PDT | | + + + + + | Height | 171.5 cm (5' 7.5") | 12/19/2017 10:10 AM | | | | | PDT | | + + + + + | Body Mass Index | 26.81 | 12/19/2017 10:10 AM | | | | | PDT | | + + + + + documented in this encounter Discharge Summaries Julius Nowak MD - 12/22/2017 1:01 PM PDTFormatting of this note might be differen t from the original. Physician Discharge Summary Patient ID: Raúl Day [id number] 67 y.o. 1950 Admit date: 12/19/2017 Discharge date and time: 12/22/17 Admitting Physician: Julius Nowak MD Discharge Physician: Julius Nowak MD Admission Diagnoses: Primary osteoarthritis of both knees (M17.0), Pain in both knees, unsp ecified chronicity (M25.561, M25.562) Discharge Diagnoses: same. Admission Condition: fair Discharged Condition: stable Indication for Admission: Disabling right knee pain. Hospital Course: The patient was admitted and underwent a right total knee joint arthroplas ty on 12/19/17 which went well. He did well post operatively and Physical therapy proceeded well. Moderate swelling occurred at the operative site but it was felt that swelling/hemart hrosis did not require formal drainage. The patient was felt to be ready for transfer to [facility] at the [place] on 12/22/17. Consults: none Significant Diagnostic Studies: radiology: X-Ray: Right total knee arthroplasty. Treatments: therapies: PT Discharge Exam: Intact, recent right total knee arthroplasty. Disposition: [facility] Patient Instructions: Discharge Medications New Medications Details aspirin 325 MG EC tablet Take 1 tablet by mouth Daily. docusate sodium 100 MG capsule Take 100 mg by mouth Twice daily as needed for Constipation. aka: COLACE HYDROcodone-acetaminophen 7.5-325 mg per tablet Take 1 tablet by mouth every 6 hours as needed for Pain. aka: NORCO Unchanged Medications Details acetaminophen 500 mg tablet Take 500-1,000 mg by mouth every 6 hours as needed for Pain. aka: TYLENOL artificial tears ophthalmic solution Place 1 drop into both eyes every hour as needed for Dry Eyes. aka: REFRESH TEARS Discontinued Medications fish oil 1,000 mg capsule GLUCOSAMINE CHOND COMPLEX/MSM PO Activity: activity as tolerated Diet: regular diet Wound Care: May remove Aquacel in one week and leave off. Follow-up with Dr. Nowak in 12 days. Signed: Julius Nowak MD 12/22/2017 13:01 documented in th is encounter Discharge Instructions Instructions Damian Escobedo PA-C - 12/22/2017Please keep appointment in Dr Nowak' s office as already scheduled. Take pain medications as prescribed if necessary Remove aquacell bandage from left knee in 6 days Continue with aspirin 325mg daily for blood thinning therapy for next 4 wks. Continue with full wt bearing on right leg. If you have any questions, comments or concerns please contact our office Do not exceed 4,000 mg of acetaminophen (Tylenol) per day. Hydrocodone-acetaminophen ([place] ) and Oxycodone-acetaminophen (Percocet) have 325 mg acetaminophen per tablet. Regular stren gth acetaminophen is 325 mg per tablet. Extra strength has 500 mg per tablet. Do not consume alcohol while taking opioid mediations. If constipation arises, try docusate-senna one tablet twice daily; milk of magnesia 30 mL o nce each night; or Miralax one capful (17 grams) dissolved in half a cup of water once daily for 3 days. If constipation does not resolve within 3 days after discharge, contact the brandon saldivar's office. documented in this encounter Medications at Time of Discharge [...] + + + +---------+ + + | acetaminophen | Take 500-1,000 mg by | | 0 | | 01/24/ | | (TYLENOL) 500 mg | mouth every 6 hours | | | | 8 | | tablet | as needed for Pain. | | | | | + + + +---------+ + + | aspirin 325 MG EC | Take 1 tablet by | 30 | 0 | 12/24/19 | | | tablet | mouth Daily. | tablet | | 18 | 8 | + + + +---------+ + + | docusate sodium | Take 100 mg by mouth | 30 | 0 | 12/23/19 | | | (COLACE) 100 MG | Twice daily as | capsule | | 18 | 8 | | capsule | needed for | | | | | | | Constipation. | | | | | + + + +---------+ + + | | Take 1 tablet by | 80 | 0 | 12/23/19 | | | HYDROcodone-acetamin | mouth every 6 hours | tablet | | 18 | 8 | | ophen (NORCO) | as needed for Pain. | | | | | | 7.5-325 mg per | | | | | | | tablet | | | | | | + + + +---------+ + + documented as of this encounter Progress Notes Julius Nowak MD - 12/22/2017 12:54 PM PDTORTHO Pod # 3 No complaints, pain improving. Afebrile, VSS Right knee Aquacel bandage is dry and intact. Moderate swelling of right knee but no signi ficant hemarthrosis. Plan: Transfer to [facility] for rehab/ PT RTC 01/03 for staple removal. Julius Wang MD - 12/21/2017 1:50 PM PDT Raúl Day SUBJECTIVE: Some pain as expected with nausea due to pain medication. Otherwise, no complaints. OBJECTIVE: Vitals with Comments 12/20/2017 12/20/2017 12/20/2017 12/21/2017 SYSTOLIC 98 98 112 105 DIASTOLIC 53 50 57 60 BP Comments - - - - Pulse 61 68 66 65 Temp 97.9 97.6 98.6 98.6 Resp 18 Weight - - - - Height - - - - SPO2 99 95 94 94 BMI - - - - Pain Score - - - - Pain Score - - - - Pain Loc - - - - Pain Loc - - - - Pain Edu? - - - - Intake/Output Summary (Last 24 hours) at 12/21/17 1350 Last data filed at 12/21/17 0910 Gross per 24 hour Intake 1240 ml Output 2650 ml Net -1410 ml No results found for this or any previous visit (from the past 24 hour(s)). Microbiology Results (72 hrs) No results found for the last 72 hours. Bandages removed. Drainage on bandages but no active drainage seen. Some swelling of righ t knee joint and subcutaneous tissues. NV function intact to feet. ASSESSMENT: Stable. PLAN: Mobilize. Will monitor knee swelling to see if hemarthrosis evacuation will be needed. Julius Nowak MD Julius Wang MD - 12/20/2017 8:17 AM PDTFormatting of this note might be di fferent from the original. Raúl Day SUBJECTIVE: Comfortable. Answered multiple questions. Has not had any pain medication yet. OBJECTIVE: Vitals with Comments 12/19/2017 12/19/2017 12/20/2017 12/20/2017 SYSTOLIC 136 111 101 114 DIASTOLIC 77 67 58 56 BP Comments - - - - Pulse 72 67 71 60 Temp 98.8 98.8 97.7 97.9 Resp - 18 18 20 Weight - - - - Height - - - - SPO2 97 95 95 99 BMI - - - - Pain Score - - - - Pain Score - - - - Pain Loc - - - - Pain Loc - - - - Pain Edu? - - - - Intake/Output Summary (Last 24 hours) at 12/20/17 08 Last data filed at 12/20/17 0814 Gross per 24 hour Intake 2505 ml Output 2230 ml Net 275 ml Recent Results (from the past 24 hour(s)) Basic Metabolic Panel Collection Time: 12/20/17 5:24 Result Value Ref Range NA 139 136 - 149 mmol/L K 4.6 3.5 - 5.1 mmol/L CL 104 98 - 109 mmol/L CO2 26 24 - 31 mmol/L ANION GAP 9 3 - 16 mmol/L GLUCOSE 105 70 - 109 mg/dL BUN 13 7 - 18 mg/dL Creatinine, Serum/Plasma 0.89 0.60 - 1.30 mg/dL eGFR if not >60 >=60 mL/min/1.73m2 CALCIUM 9.1 8.3 - 10.5 mg/dL BUN/CREA 14.6 Hemoglobin and Hematocrit Collection Time: 12/20/17 5:24 Result Value Ref Range Hct 38.9 (L) 40.0 - 51.0 % Hgb 12.8 (L) 13.5 - 18.0 g/dL Microbiology Results (72 hrs) No results found for the last 72 hours. Bandages clean and dry. NV function intact to feet. ASSESSMENT: Stable. PLAN: Mobilize with PT. Julius Nowak MD documented in this encounter H&P Notes Julius Nowak MD - 12/19/2017 11:50 AM PDTSURGICAL INTERIM HISTORY & PHYSICAL UPDAT E Pt. Name/Age/: Raúl Day 67 y.o. 1950 Date of admission: 12/19/2017 The current H&P was reviewed. The patient was reexamined. Re-evaluation of the patient co nfirms the necessity for the scheduled procedure. No change has occurred in the patient s condition since the H&P was completed less than 30 days ago. VERIFICATION OF CONSENT (PARQ) The patient was counseled regarding the procedure, its indications, risks, potential compli cations and alternatives. Any questions were answered. Consent was obtained. Electronically signed by: Julius Nowak MD, 12/19/2017 11:50 [facility] Julius Wang MD - 12/15/2017 3:00 PM PDT History of present illness: Raúl is a 67 y.o. male who presents to our clinic today for a preop examination. Raúl is scheduled for a right total knee joint arthroplasty on 12/19/17 . He has a many year history of bilateral knee pain, right worse than left. He has failed conservative measures including oral medication, glucosamine, exercises, and knee joint inje ctions. His x-rays show advanced osteoarthrosis of both knees and he therefore is felt to b e a candidate for staged, bilateral total knee joint replacement starting with the right anish e first. Past Medical History: Diagnosis Date Arthritis Cataract Degenerative disc disease, lumbar Hard of hearing bilateral hearing aids Hernia cerebri (HCC) Past Surgical History: Procedure Laterality Date CATARACT REMOVAL Bilateral 2017 in [place] HERNIA REPAIR Right 1980 [place]UMBAR SPINE SURGERY Bilateral 05/05/2015 Procedure: L3-4, L4-5 Lateral Anterior Interbody Fusion, L5-S1 Transforaminal Lumbar Inter body Fusion, Laminectomy @ L3-4, L4-5, L5-S1; Surgeon: Jan Tello MD; Location: [facility] MAIN OR TOE SURGERY Right VASECTOMY 1982 No Known Allergies Current Outpatient Prescriptions on File Prior to Visit Medication Sig Dispense Refill fish oil 1,000 mg capsule Take 1,000 mg by mouth 3 times daily. Misc Natural Products (GLUCOSAMINE CHOND COMPLEX/MSM PO) Take 1 tablet by mouth 3 times daily. No current facility-administered medications on file prior to visit. Family History Problem Relation Age of Onset Prostate cancer Father Heart disease Mother Stroke Mother Cancer Paternal Grandfather Social History Social History Marital status: Single Spouse name: N/A Number of children: 1 Years of education: 14 Occupational History retired Social History Main Topics Smoking status: Never Smoker Smokeless tobacco: Never Used Alcohol use 0.0 oz/week Comment: Rare Drug use: No Sexual activity: No Other Topics Concern Not on file Social History Narrative No narrative on file Review of Systems Eyes: [] Double vision [x] Glasses/contacts [] Failing vision Ear/Nose/Throat: [] Frequent Colds [] Sinus Disease [] Nose obstruction [] Sneezing Spells [] Change in taste [] Artificial teeth [] Ears ringing [] Ear pain [] Hearing loss [] Teeth problems [] Hoarseness [] Neck swelling [] Sore throat [] Congestion [] Nosebleeds [] Nasal allergies Respiratory: [] Asthma/Wheezing [] Pneumonia [] Night sweats [] Shortness of breath [] Chronic cough [] Coughing up blood [] Exposure to tuberculosis Cardiovascular: [] Heart Problems [] Hypertension [] Heart murmur [] Palpitations [] Rheumatic fever [] Phlebitis [] Chest pain [] Ankle swelling [] Leg cramps [] Racin g heart [] Skipping beats [] Blood clots Gastrointestinal: [] Abdominal pain [] Heartburn [] Blood from rectum [] Colitis [] Gallbladder problems [] Troubl e swallowing [] Bloated stomach [] Change in stools [] Vomiting blood [] Nausea [] Hemorrhoids [] Jaundice [ ] Hepatitis [] Diarrhea [] Constipation [] Diverticulitis Urinary Tract: [] Painful urination [] Kidney Stones [] Any urine leakage [] Weak urine stream [] Night urination [] Urine infections [] Bedwetting [] Blood in urine Skin: [] Skin rashes [] Itching/Burning [] Skin bruises easil y [] Artificial tanning [] Skin cancer [] Hair loss [] Changes in moles Musculoskeletal: [] Physical handicaps [] Back or shoulder pain []Rheumatoid disease [] Osteoarthritis [] Joint pain [] Joint swelling []Gout [] Leg cramps at night Neurological: [] Headaches [] Seizures [] Stroke/TIA [] Faintness [] Tremors [] Numbness [] Dizziness [] Changes in handwriting [] Memory loss [] Shooting pains Psychiatric: [] Depression [] Suicidal thoughts [] Sleep pattern changes [] Appetite changes [] Recent counseling [] Nervousness/anxiety [] Physical violence [] Marital problems Endocrine: [] Thyroid [] Diabetes Systemic: []Weight loss/gain (over 10 lbs) []Fever/chills []Fatigue [] Sleeping Difficulties [] Speech change [] Voice change Vitals: 12/15/17 1525 BP: 123/65 Pulse: 58 Resp: 14 Temp: 36.1 C (96.9 F) PainSc: 7 PainLoc: Knee Estimated body mass index is 26.61 kg/m as calculated from the following: Height as of this encounter: 1.727 m (5' 8"). Weight as of this encounter: 79.4 kg (175 lb). Physical examination:Patient is alert and oriented and in no acute distress. Inspection reveals: Skin is warm dry and intact with no gross deformity. Head: Oral pharnyx nonerythematous nonedematous no exudate noted Neck: Supple nontender without any lymphadenopathy. Heart: Regular rate and rhythm. Lungs: Clear to auscultation. Abdomen: Soft nontender no masses organomegaly. Cranial nerves 2-12 grossly intact. Musculoskeletal: His right knee is mildly swollen. The knee joint is tender to palpation particularly over the joint lines. Range of motion is approximately 5-115. Ligaments are stable and neurovascular function is intact to the right foot. Assessment: Bilateral knee osteoarthrosis, right worse than left. Plan: The patient is scheduled for a right total knee joint arthroplasty on 12/19/17. There fore, the planned procedure with its risks, possible complications, expected prognosis, and treatment alternatives was discussed with the patient. Risks and possible complications wer e listed but not limited to infection, nerve and vessel damage, bleeding, pain, scarring, st iffness, residual symptoms remaining after surgery, and the risk of anesthesia including kaycee th. No guarantees were given or implied other than that of diligent effort. I expect that this patient will require at least 2 days of inpatient care. documented in th is encounter Miscellaneous Notes Plan of Care - Adelita Benson RN - 12/22/2017 3:11 PM PDTProblem: Patient Care Overview (A dult) Goal: Care Team Goals & Evaluation PROBLEM-RELATED GOALS: Patient will remain free from falls/injury throughout the time of admission until discharge on 12/21/17 Patient will demonstrate increased movement of RLE and efficiently weight bear at tolerated on the RLE by 12/21/17 Patient will achieve adequate pain relieve of 3/10 or less by time of discharge on 12/21/17 Patient will remain free from infection and demonstrate wound healing by time of discharge on 12/21/17 5. Prevent post operative hypoxia by 12/22/17 6. Prevent post operative atelectasis/pneumonia by 12/22/17 7. Patient will be modified independent with ambulation in the hallway by 12/22/2017 STRATEGY TO ACHIEVE GOALS: Routinely round on patient to ensure safety measures are in place and patient's needs are m et appropriately Assess patients CMS and muscle strengths, encourage AROM of RLE, and ambulation Routinely assess patients pain and implement non-pharmacologic and pharmacologic interventi ons as appropriate Assess patients surgical site for any sign/symptoms of infection, monitor vital signs, and lab results 5. Titrate oxygen to room air keeping oxygen saturation at or >92% 6. Patient to achieve 75% of predicted normal for inspirometer and or using on own -Patient will participate in PT activities Outcome: Adequate for Discharge Date Met: 12/22/17 Goal Evaluation: Kvng is doing very well. Modified independence in room, with FWW. Reminder to continue to use walker when ambulating in room, Kvng verbalized his understanding. No falls this shift. R eports pain in right knee of 0-1/10, well controlled with Oxycodone 5 mg x 1 today. VSS, afe brile, on RA with SpO2 at 97%. Aquacel dressing CDI. Polar care in place. Dorsal/plantar f lexion strong in RLE, brisk cap refill, CMS intact. Calls appropriately for cares and needs . IV removed intact. Escorted out with staff from [facility] in wheelchair. Discharged to [facility] for continued Rehab. NF Transfer - Hammad Escobedo PA-C - 12/22/2017 1:24 PM PDTFormatting of this note might be different from t isabel original. [facility] FACILITY TRANSFER ORDERS Patient Name: Raúl Day Patient : 1950 Gender: male Date of Admission: 12/19/2017 Date of Discharge: 12/22/2017 Admitting Provider: Julius Nowak* Discharging Provider: Damian Escobedo PA-C Consultants: PT, OT, Respiratory PCP: Shubham Maurer [facility] transferring to: [facility] Provider after transfer: To Be determined CODE STATUS: [x] Attempt CPR [] Do not resuscitate If patient is pulseless and not breathing, RN/CANDY POLISHER may pronounce . Advanced Directives included: [x] POLST [] MOLST/MOST [] Comfort One ([place]) [] Other: Code status discussed with: [x] Patient [] Spouse/Family [] DPOA [] Other: Name of person discussed with: Date discussed: Isolation/Infection Precautions: [x] None Height: Height: 171.5 cm (5' 7.5") Wt Readings from Last 3 Encounters: 12/19/17 78.8 kg (173 lb 11.6 oz) 12/15/17 79.4 kg (175 lb) 11/08/17 78 kg (172 lb) Admitting Diagnosis: Primary osteoarthritis left knee Patient Active Problem List Diagnosis Lumbar scoliosis S/P lumbar fusion Lumbar radiculopathy Spinal stenosis, lumbar DDD (degenerative disc disease), lumbar Spondylosis of lumbar joint Neurogenic claudication No Known Allergies There is no immunization history on file for this patient. Diet: [] As tolerated CONFIDENTIAL SECRETARY may upgrade or downgrade diet as condition Indicates. [x] RN may downgrade diet as indicated. Type: [x] Continue current diet of: Diet and Supplements Diet Diet general; Effective Now Number of Occurrences: Until Specified Order Questions: Type Diet general [] Other: Consistency/Precautions: [] Whole [] Thin Liquids [] Cut-up [] [place] Thick [] Advanced Chopped [] Honey Thickened [] Chopped [] Advanced Ground [] 1:1 feedings [] Ground/Pureed [] Other: Tube Feedings: [] PEG [] GT [] JT [] NGT [] Formula type: (Embossograph Operator may change/substitute if indicated). [] Continuous Rate: ml/hr, infusing hrs/day [] Bolus feeds: ml every hours [] Additional water: ml every hours Respiratory: [] BiPAP at night & PRN SOB. Settings: O2 L bleed Dx: [] CPAP at night & PRN SOB. Settings: O2 L bleed Dx: [] Suction & Pulmonary toilet PRN secretion/sputum management. Dx: [] Incentive Spirometer QID and PRN while awake. Duration: Dx: [] Tracheostomy management per protocol [] Oxygen: Lpm NC/Trach [] Continuous [] NOC [] Humidified [] prn SaO2 < % [] prn SOB/dyspnea Dx: [] Other: Dx: Bladder: [] Follow nursing protocol for recent lewis removal [] Lewis catheter managment per nursing protocol - Indication: [] Permanent [] Temporary [] Remove lewis catheter on and follow nursing protocol for recent lewis remova l. [] Straight catheter every hour(s) and record amount drain Dx: [] Bladder scan every hour(s) and straight cath for > ml Dx: [] Suprapubic catheter management Dx: Other Lines, Tubes and Drains: (to be managed by nursing protocol) [] IV access and location: [] Permanent [] Temporary: Instructions/indications for removal of IV access: [] May use Alteplase per protocol PRN occluded central venous catheter [] Colostomy [] Ileostomy [] Urostomy [] Nephrostomy [] Dialysis Access - Type & Location: [] Drains - Type & Location: [] Other: Activity/Therapies: [x]WBAT [] Weight Bearing Restricted (specify limb(s)): [x] PT Evaluation & Management for: ____Right total knee arthroplasty [x] OT Evaluation & Management for: ___Right total knee arthroplasty [] CONFIDENTIAL SECRETARY Evaluation &Management for: [] Other: Wound/Skin Care: [] Follow current recommendations of the wound team for treatment. [] Follow standard nursing protocols for wound care. [] Wound Vac management per nursing protocol. Indication: Location: Settings: Change frequency: & prn [x] Other: removal aqua cell bandage from right anterior knee in 6 days. Enrique can get wet in the shower thereafter Labs/Imaging: [] PT/INR: Frequency: Dx: Goal INR: Duration of therapy: [] Fingerstick glucose checks: Dx: DM [] Other: Test/Study Needed/Frequency Diagnosis/Indication Follow up appointments and consultations: ___Damian Escobedo PA-C Date/Time: as schedu led Dr. Date/Time I have advised this patient that he/she not use tobacco products. TB screening: Upon admission the 1st and 2nd step TST will be done as per protocol if Resid ent has no history of TB or a past positive TST. Pharmacist may substitute equivalent Rx based on facility or insurance formulary as needed unless otherwise specified by physician. Please write "EDILBERTO" (Dispense as written) if a medi cation should not be substituted. Please make sure to write a diagnosis for ALL medications continued on transfer. Antibioti cs require a stop date. If medications do not contain a SIG, make sure doses/routes and jamia edule is included. Medication Orders New Medications Details Order Next Dose Due aspirin 325 MG EC tablet Take 1 tablet by mouth Daily. By: Julius Nowak MD Quant: 30 tablet docusate sodium 100 MG capsule Take 100 mg by mouth Twice daily as needed for Constipation. aka: COLACE By: Julius Nowak MD Quant: 30 capsule HYDROcodone-acetaminophen 7.5-325 mg per tablet Take 1 tablet by mouth every 6 hours as needed for Pain. aka: NORCO By: Julius Nowak MD Quant: 80 tablet Unchanged Medications Details Order Next Dose Due acetaminophen 500 mg tablet Take 500-1,000 mg by mouth every 6 hours as needed for Pain. aka: TYLENOL artificial tears ophthalmic solution Place 1 drop into both eyes every hour as needed for Dry Eyes. aka: REFRESH TEARS Discontinued Medications fish oil 1,000 mg capsule GLUCOSAMINE CHOND COMPLEX/MSM PO I, Damian Escobedo PA-C, certify that post hospital nursing home care is medically nece ssary on a continuing basis for any of the conditions for which he/she received care during this hospitalization. Check one: [x] Skilled [] Intermediate Additional Orders/Instructions: Physician's signature: Damian Escobedo PA-C 12/22/2017 13: 24 [facility] USE ONLY: [] Admitting orders verbally reviewed with Admitting Physician, modified where appropriate, and approved. Verbal Order from Date: Time: _ RN name: RN signature: [] Admitting orders reviewed, modified where appropriate, and approved. Physician's signature: Date: Time: lan of Care - Kaila Oviedo MSW - 12/22/2017 12:10 PM PDTThank you for the referral to IPR. We reviewed the patient's chart and he does not meet criteria for admission at this time. The patient i s modified independent with gait, transfers, and bed mobility and walking 150'. Combined thi s is too high functioning for IPR. Thank you again for the referral. Electronically signed by: RYAN Alegre 12/22/2017 12:14 lan of Care - Kenna Rayo, OT - 12/22/2017 11:02 AM PDT Problem: Patient Care Overview (Adult) Goal: Care Team Goals & Evaluation PROBLEM-RELATED GOALS: Patient will remain free from falls/injury throughout the time of admission until discharge on 12/21/17 Patient will demonstrate increased movement of RLE and efficiently weight bear at tolerated on the RLE by 12/21/17 Patient will achieve adequate pain relieve of 3/10 or less by time of discharge on 12/21/17 Patient will remain free from infection and demonstrate wound healing by time of discharge on 12/21/17 5. Prevent post operative hypoxia by 12/22/17 6. Prevent post operative atelectasis/pneumonia by 12/22/17 7. Patient will be modified independent with ambulation in the hallway by 12/22/2017 STRATEGY TO ACHIEVE GOALS: Routinely round on patient to ensure safety measures are in place and patient's needs are m et appropriately Assess patients CMS and muscle strengths, encourage AROM of RLE, and ambulation Routinely assess patients pain and implement non-pharmacologic and pharmacologic interventi ons as appropriate Assess patients surgical site for any sign/symptoms of infection, monitor vital signs, and lab results 5. Titrate oxygen to room air keeping oxygen saturation at or >92% 6. Patient to achieve 75% of predicted normal for inspirometer and or using on own -Patient will participate in PT activities Outcome: Adequate for Discharge Date Met: 12/22/17 Occupational Therapy Plan of Care Treatment Note Summary: Raúl has been participating in occupational therapy for treatment of decrea sed independence with ADL s/p R TKA. Emphasis of session included LB dressing, bed mobility , functional t/fs and mobility, and education and training on manual lymphedema massage to p romote the reduction of swelling ( hand out and training provided). Patient demonstrates pr ogress towards functional goals as evidenced by demonstrating mod I with dressing and functi onal t/fs and mobility in room. Pt reports having no further questions or concerns at this t chanell. Raúl has shown adequate progress towards goals and is to discharge OT at this time. Staff to continue to encourage and promote independence with ADLs and functional mobility. Occupational Therapy Discharge Recommendations are: Recommended discharge disposition: home, home with assist (vs) Post discharge occupational therapy recommendation: pt is motivated participant Planned Interventions:ADL retraining, bed mobility training, transfer training Recommended Frequency: 4 times/wk, 5 times/wk Patient Status/Goals: Reflects last filed data and may be from multiple contributors. ADLs mod I. no assist. UB Dressing, Level of Udell: modified independent Assistive Device: none UB Dressing Assess/Train, Position: sitting increased time and effort but no physcial assist required. LB Dressing, Level of Udell: modified independent Assistive Device: none LB Dressing Assess/Train, Position: sitting, standing LB Dressing Assess/Train, Impairments: impaired balance, decreased flexibility mod I at sink. Grooming, Level of Udell: stand by assist Assistive Device: none Grooming Assess/Train, Position: standing Grooming Assess/Train, Impairments: impaired balance, pain Lymphedema/Edema management Manual Lymphatic Mobilization following right knee surgery: Raúl was instructed if swelling occurs at home to perform 1 set 10 repetitions of each ma ssage technique before meals. 1. Deep breathe - 5x in through the nose, out through the mouth - push all air out. 2. Pull hand from pocket - with hand flat, place index finger on the underwear line (crease of leg), hand toward inside of leg. Gently stretch skin away from groin - this "milks" the lymph nodes in the area. Repeat 10 times. 3. Massage inside of leg - start at the inside of the knee and stroke to the outside of the leg - this will require you to repeat multiple times as you want to include the entire uppe r leg. Repeat 10 times each area. 4. Massage the outside of the leg - start at the knee and stroke up the outside of the leg past the hip. Repeat [address] both hands on each side of the knee with thumbs up and fingers behind knee - gentl y roll your hands upward towards your heart. Repeat 10 times. Bed Mobility increased felicia/effort Assistive Device: none Scoot/Bridge, Level of Udell: modified independent Supine to Sit, Level of Udell: modified independent Sit to Supine, Level of Udell: modified independent Safety Issues: decreased use of legs for bridging/pushing Impairments: decreased flexibility, pain, strength decreased, ROM decreased Transfers increased time/effort; no physcial assist. talked with pt pertaining to tub/shower t/f. pt reports feeling comfortable with t/f and has no further questions or concerns. Bed-Chair, Level of Udell: modified independent Chair-Bed, Level of Udell: modified independent [id number], Assistive Device: 2 wheeled walker (FWW) Sit-Stand, Level of Udell: modified independent Stand-Sit, Level of Udell: modified independent [id number], Assistive Device: 2 wheeled walker (FWW) Toilet, Level of Udell: set up required, verbal cues required, stand by assist Toilet, Assistive Device: 2 wheeled walker (FWW), commode (3 in 1) Maintain Weight Bearing Status: (.) Safety Issues: weight-shifting ability decreased Impairments: decreased flexibility, ROM decreased, strength decreased, pain OT Goal Review Date Most Recent Value STG Review Date 12/27/17 at 12/20/2017 1012 LB Dressing Goal Most Recent Value STG Status met at 12/22/2017 1102 STG Udell Level modified independent at 12/20/2017 1012 STG Adaptive Equipment none at 12/20/2017 1012 Tub/Shower Transfer Goal Most Recent Value Tub/Shower Type tub at 12/20/2017 1012 STG Status discontinued [pt reports feeling comfortable with task, reporting needing no f urther training] at 12/22/2017 1102 STG Udell Level modified independent at 12/20/2017 1012 Electronically signed by: Kenna Christian OT, 12/22/2017 12:09 lan of [facility] - Patricia Phipps - 12/22/2017 9:00 AM PDTThis CM received a call from Dr. Nowak regarding the disposition. This CM talked with Kvng about his discharge plan. Don is ok with going to [facility]. He has been there in the past. Faxed referral to [facility] and messaged Michelle. Michelle will go over the referral and let this CM know. Electronically signed by: Patricia Dawn 12/22/2017 9:02 lan of [facility] - Jenaro Sanchez RN - 12/22/2017 5:29 AM PDTProblem: Patient Care Overview (Adult) Goal: Care Team Goals & Evaluation PROBLEM-RELATED GOALS: Patient will remain free from falls/injury throughout the time of admission until discharge on 12/21/17 Patient will demonstrate increased movement of RLE and efficiently weight bear at tolerated on the RLE by 12/21/17 Patient will achieve adequate pain relieve of 3/10 or less by time of discharge on 12/21/17 Patient will remain free from infection and demonstrate wound healing by time of discharge on 12/21/17 5. Prevent post operative hypoxia by 12/22/17 6. Prevent post operative atelectasis/pneumonia by 12/22/17 7. Patient will be modified independent with ambulation in the hallway by 12/22/2017 STRATEGY TO ACHIEVE GOALS: Routinely round on patient to ensure safety measures are in place and patient's needs are m et appropriately Assess patients CMS and muscle strengths, encourage AROM of RLE, and ambulation Routinely assess patients pain and implement non-pharmacologic and pharmacologic interventi ons as appropriate Assess patients surgical site for any sign/symptoms of infection, monitor vital signs, and lab results 5. Titrate oxygen to room air keeping oxygen saturation at or >92% 6. Patient to achieve 75% of predicted normal for inspirometer and or using on own -Patient will participate in PT activities Outcome: Improving Goal Evaluation: Don is A&O x4, VSS, pain to R knee, continues with polar care and 5 mg of oxycodone; Aqua cell dressing to R knee CDI; Pedal pulses 2+ bilat, No numbness/tingling; tolerating CPM at 0-50; Free from falls/injury, SBA with FWW; Voiding adequate clear yellow urine, up to bathr oom, Last BM 12/20, passing flatus; Able to get sleep during shift. lan of Care - Jitendra Stout RN - 12/21/2017 8:28 PM PDTProblem: Patient Care Overview (Adult) Goal: Care Team Goals & Evaluation PROBLEM-RELATED GOALS: Patient will remain free from falls/injury throughout the time of admission until discharge on 12/21/17 Patient will demonstrate increased movement of RLE and efficiently weight bear at tolerated on the RLE by 12/21/17 Patient will achieve adequate pain relieve of 3/10 or less by time of discharge on 12/21/17 Patient will remain free from infection and demonstrate wound healing by time of discharge on 12/21/17 5. Prevent post operative hypoxia by 12/22/17 6. Prevent post operative atelectasis/pneumonia by 12/22/17 7. Patient will be modified independent with ambulation in the hallway by 12/22/2017 STRATEGY TO ACHIEVE GOALS: Routinely round on patient to ensure safety measures are in place and patient's needs are m et appropriately Assess patients CMS and muscle strengths, encourage AROM of RLE, and ambulation Routinely assess patients pain and implement non-pharmacologic and pharmacologic interventi ons as appropriate Assess patients surgical site for any sign/symptoms of infection, monitor vital signs, and lab results 5. Titrate oxygen to room air keeping oxygen saturation at or >92% 6. Patient to achieve 75% of predicted normal for inspirometer and or using on own -Patient will participate in PT activities Outcome: Improving Goal Evaluation: Don's pain has been better controlled with PO pain medication, PT/OT cleared to be mod-I i n room with FWW, tolerated meals well, dressing changed per Dr. Nowak, voids well, passi ng flatus, no BM today, calls appropriately and makes need known. Possible d/c tomorrow. lan of Care - Kristi Sharma, PT - 12/21/2017 3:55 PM PDTFormatting of this note might be different fr om the original. Problem: Patient Care Overview (Adult) Goal: Care Team Goals & Evaluation PROBLEM-RELATED GOALS: Patient will remain free from falls/injury throughout the time of admission until discharge on 12/21/17 Patient will demonstrate increased movement of RLE and efficiently weight bear at tolerated on the RLE by 12/21/17 Patient will achieve adequate pain relieve of 3/10 or less by time of discharge on 12/21/17 Patient will remain free from infection and demonstrate wound healing by time of discharge on 12/21/17 5. Prevent post operative hypoxia by 12/22/17 6. Prevent post operative atelectasis/pneumonia by 12/22/17 7. Patient will be modified independent with ambulation in the hallway by 12/22/2017 STRATEGY TO ACHIEVE GOALS: Routinely round on patient to ensure safety measures are in place and patient's needs are m et appropriately Assess patients CMS and muscle strengths, encourage AROM of RLE, and ambulation Routinely assess patients pain and implement non-pharmacologic and pharmacologic interventi ons as appropriate Assess patients surgical site for any sign/symptoms of infection, monitor vital signs, and lab results 5. Titrate oxygen to room air keeping oxygen saturation at or >92% 6. Patient to achieve 75% of predicted normal for inspirometer and or using on own -Patient will participate in PT activities Outcome: Goal Achieved Date Met: 12/21/17 Physical Therapy Plan of Care Treatment, Discharge Note Summary: Raúl has been participating in physical therapy for treatment of Impaired fun ctional mobility, decreased flexibility, and pain following elective left total knee arthrop lasty. Patient is now weightbearing as tolerated left lower extremity.. Emphasis of sima mora included review of all functional mobility for consistency, discussion of safety issues w/ being cleared for Mod I in room and review of HEP w/ pt demonstrating independence. Current ly Kvng has met all his goals and is mobilizing at a level necessary for safe home discharge OT and RN consulted and all agree pt is appropriate for Mod I in room during day hours. Whit e board updated to reflect pt's mobility status. Consulted CM regarding assisting pt w/ adele palmaing OP PT at [facility] prior to d/c in order to get him in to see a therapist at [facility] possible time. No further acute PT services indicated at this time. Physical Therapy Discharge Recommendations are: Recommended discharge disposition: home Post discharge physical therapy recommendation: outpatient therapy Equipment Recommendations: 2 wheeled walker (FWW) Planned Interventions: balance training, bed mobility training, gait training, home exerci se program, patient/family education, ROM (Range of Motion), transfer training Recommended Frequency: 2 times/day Patient Status/Goals: Reflects last filed data and may be from multiple contributors. Gait cueing for heel strike/toe off to normalize gait pattern Level of Udell: modified independent Assistive Device: 2 wheeled walker (FWW) Distance (feet): 150' Gait Deviations: conner decreased, step length decreased, weight-shifting ability decrease d Safety Issues: step length decreased, weight-shifting ability decreased Impairments: decreased flexibility, ROM decreased, strength decreased, pain Transfers Increased time and effort but no additional assist Bed-Chair, Level of Udell: modified independent Chair-Bed, Level of Udell: modified independent Lmr-Fzfli-Pao, Assistive Device: 2 wheeled walker (FWW) Sit-Stand, Level of Udell: modified independent Stand-Sit, Level of Udell: modified independent [id number]-Pwd, Assistive Device: 2 wheeled walker (FWW) Safety Issues: weight-shifting ability decreased Impairments: decreased flexibility, ROM decreased, strength decreased, pain Bed Mobility increased time and effort Assistive Device: none Scoot/Bridge, Level of Udell: modified independent Supine to Sit, Level of Udell: modified independent Sit to Supine, Level of Udell: modified independent Safety Issues: decreased use of legs for bridging/pushing Impairments: decreased flexibility, pain, strength decreased, ROM decreased Balance improving Sitting Balance: Static: normal balance Sitting Balance: Dynamic: good balance Standing Balance: Static: good balance Standing Balance: Dynamic: good balance Therapeutic Exercise Reviewed HEP w/ pt able to perform all exercises w/o additional instruction, only reference to handout TKA exercises: right, TKA program Repetitions: 10 Functional Endurance good for stated goals ROM L LE ROM: Within functional limits R LE ROM: knee 7-98 w/ mild overpressure Strength L LE Strength: Grossly 4/5 R LE Strength: 4/5 t/o except quad 3-/5 PT Goal Review Date Most Recent Value STG Review Date 12/22/17 at 12/19/2017 1720 [id number] Goal Most Recent Value STG Status met at 12/20/2017 1357 STG Udell Level modified independent at 12/19/2017 1720 STG Assistive Device none at 12/19/2017 1720 Zth-Aiswe-Izm Goal Most Recent Value STG Status met at 12/21/2017 1030 STG Udell Level modified independent at 12/19/2017 1720 STG Assistive Device 2 wheeled walker (FWW) at 12/19/2017 1720 Gait Goal Most Recent Value STG Status met at 12/21/2017 1030 STG Udell Level modified independent at 12/19/2017 1720 STG Assistive Device 2 wheeled walker (FWW) at 12/19/2017 1720 STG Distance (feet) 150 feet at 12/19/2017 1720 Stair Goal Most Recent Value STG Status progressing at 12/21/2017 1030 STG Udell Level modified independent at 12/19/2017 1720 STG Assistive Device 2 rails at 12/19/2017 1720 STG Number of Stairs 2 at 12/19/2017 1720 Additional Goal #1 PT Most Recent Value STG Status met at 12/21/2017 1555 STG Patient will demonstrate good understanding of TKA exercises and receive a printed johns dout at 12/19/2017 1720 Electronically signed by: Kristi Sharma, PT, 12/21/2017 16:07 lan of [facility] - Lakeshia Alan, EYE PHYSICIAN - 12/21/2017 3:21 PM PDT Problem: Patient Care Overview (Adult) Goal: Care Team Goals & Evaluation PROBLEM-RELATED GOALS: Patient will remain free from falls/injury throughout the time of admission until discharge on 12/21/17 Patient will demonstrate increased movement of RLE and efficiently weight bear at tolerated on the RLE by 12/21/17 Patient will achieve adequate pain relieve of 3/10 or less by time of discharge on 12/21/17 Patient will remain free from infection and demonstrate wound healing by time of discharge on 12/21/17 5. Prevent post operative hypoxia by 12/22/17 6. Prevent post operative atelectasis/pneumonia by 12/22/17 7. Patient will be modified independent with ambulation in the hallway by 12/22/2017 STRATEGY TO ACHIEVE GOALS: Routinely round on patient to ensure safety measures are in place and patient's needs are m et appropriately Assess patients CMS and muscle strengths, encourage AROM of RLE, and ambulation Routinely assess patients pain and implement non-pharmacologic and pharmacologic interventi ons as appropriate Assess patients surgical site for any sign/symptoms of infection, monitor vital signs, and lab results 5. Titrate oxygen to room air keeping oxygen saturation at or >92% 6. Patient to achieve 75% of predicted normal for inspirometer and or using on own -Patient will participate in PT activities Outcome: Improving Physical Therapy Plan of Care Treatment Note Summary: Raúl has been participating in physical therapy for treatment of Impaired fun ctional mobility, decreased flexibility, and pain following elective left total knee arthrop lasty. Patient is now weightbearing as tolerated left lower extremity.. Emphasis of sessio n included functional mobility and activity tolerance training; focus on gait and transfer t raining with FWW. Patient requires cueing regarding conner and normalizing gait pattern . Patient demonstrates progress towards functional goals as evidenced by meeting and exceedin g many PT goals. Remaining barriers to discharge and functional limitations include decreas ed insight into safety and deficits, decreased functional activity tolerance, decreased bed mobility, decreased functional transfers, decreased functional gait distance, decreased gait velocity, stairs at home, not able to navigate stairs and lives alone. Raúl will benefit from continued therapeutic intervention to address ongoing impairments and increase safety and independence with activities necessary for safe discharge. Refer be low for specific details regarding functional levels. Physical Therapy Discharge Recommendations are: Recommended discharge disposition: home Post discharge physical therapy recommendation: outpatient therapy Equipment Recommendations: 2 wheeled walker (FWW) Planned Interventions: balance training, bed mobility training, gait training, home exerci se program, patient/family education, ROM (Range of Motion), transfer training Recommended Frequency: 2 times/day Patient Status/Goals: Reflects last filed data and may be from multiple contributors. Gait cueing for heel strike/toe off to normalize gait pattern Level of Udell: modified independent Assistive Device: 2 wheeled walker (FWW) Distance (feet): 150' Gait Deviations: conner decreased, step length decreased, weight-shifting ability decrease d Safety Issues: step length decreased, weight-shifting ability decreased Impairments: decreased flexibility, ROM decreased, strength decreased, pain Stairs cueing, extra time and effort Number of Stairs: 4 Handrail Location: both sides Level of Udell: supervised, verbal cues required Assistive Device: 2 rails Technique Used: step to step (ascending), step to step (descending) Safety Issues: sequencing ability decreased, weight-shifting ability decreased Impairments: decreased flexibility, ROM decreased, pain, strength decreased Transfers Mod I with FWW Bed-Chair, Level of Udell: modified independent Chair-Bed, Level of Udell: modified independent Vmp-Flexv-Ilg, Assistive Device: 2 wheeled walker (FWW) Sit-Stand, Level of Udell: modified independent Stand-Sit, Level of Udell: modified independent [id number], Assistive Device: 2 wheeled walker (FWW) Maintain Weight Bearing Status: able to maintain weight bearing status Safety Issues: weight-shifting ability decreased, step length decreased Impairments: decreased flexibility, ROM decreased, strength decreased, pain Bed Mobility Mod I Assistive Device: bed rails Scoot/Bridge, Level of Udell: modified independent Supine to Sit, Level of Udell: modified independent Sit to Supine, Level of Udell: modified independent Safety Issues: decreased use of legs for bridging/pushing Impairments: decreased flexibility, pain, strength decreased, ROM decreased Balance improving Sitting Balance: Static: normal balance Sitting Balance: Dynamic: good balance Standing Balance: Static: good balance Standing Balance: Dynamic: good balance Therapeutic Exercise ROM exs Seated exercises: bilateral, knee flexion, long arc quads Repetitions: x 10, x 2 Functional Endurance improving to good PT Goal Review Date Most Recent Value STG Review Date 12/22/17 at 12/19/2017 1720 [id number] Goal Most Recent Value STG Status met at 12/20/2017 1357 STG Udell Level modified independent at 12/19/2017 1720 STG Assistive Device none at 12/19/2017 1720 Zfk-[id number]-Afg Goal Most Recent Value STG Status met at 12/21/2017 1030 STG Udell Level modified independent at 12/19/2017 1720 STG Assistive Device 2 wheeled walker (FWW) at 12/19/2017 1720 Gait Goal Most Recent Value STG Status met at 12/21/2017 1030 STG Udell Level modified independent at 12/19/2017 1720 STG Assistive Device 2 wheeled walker (FWW) at 12/19/2017 1720 STG Distance (feet) 150 feet at 12/19/2017 1720 Stair Goal Most Recent Value STG Status progressing at 12/21/2017 1030 STG Udell Level modified independent at 12/19/2017 1720 STG Assistive Device 2 rails at 12/19/2017 1720 STG Number of Stairs 2 at 12/19/2017 1720 Additional Goal #1 PT Most Recent Value STG Status progressing at 12/20/2017 1357 STG Patient will demonstrate good understanding of TKA exercises and receive a printed johns dout at 12/19/2017 1720 Electronically signed by: Lakeshia Alan PTA, 12/21/2017 15:17 lan of Care - Racquel Jimenez OT - 12/21/2017 3:18 PM PDTFormatting of this note might be different from t he original. Problem: Patient Care Overview (Adult) Goal: Care Team Goals & Evaluation PROBLEM-RELATED GOALS: Patient will remain free from falls/injury throughout the time of admission until discharge on 12/21/17 Patient will demonstrate increased movement of RLE and efficiently weight bear at tolerated on the RLE by 12/21/17 Patient will achieve adequate pain relieve of 3/10 or less by time of discharge on 12/21/17 Patient will remain free from infection and demonstrate wound healing by time of discharge on 12/21/17 5. Prevent post operative hypoxia by 12/22/17 6. Prevent post operative atelectasis/pneumonia by 12/22/17 7. Patient will be modified independent with ambulation in the hallway by 12/22/2017 STRATEGY TO ACHIEVE GOALS: Routinely round on patient to ensure safety measures are in place and patient's needs are m et appropriately Assess patients CMS and muscle strengths, encourage AROM of RLE, and ambulation Routinely assess patients pain and implement non-pharmacologic and pharmacologic interventi ons as appropriate Assess patients surgical site for any sign/symptoms of infection, monitor vital signs, and lab results 5. Titrate oxygen to room air keeping oxygen saturation at or >92% 6. Patient to achieve 75% of predicted normal for inspirometer and or using on own -Patient will participate in PT activities Occupational Therapy Plan of Care Treatment Note Summary: Raúl has been participating in occupational therapy for treatment of decrease d independence with ADL s/p R TKA. Emphasis of session included tub transfer with tub trans danny bench. Patient demonstrates progress towards functional goals as evidenced by demonstra tion of safe transfer after demonstration. Pt. performing functional mobility without physic al assistance and demonstrates good safety awareness. Remaining barriers to discharge and f unctional limitations include decreased functional activity tolerance, decreased functional transfers and decreased ability to perform ADLs. Raúl will benefit from continued therapeutic intervention to address ongoing impairments and increase safety and independence with activities necessary for safe discharge. Refer be low for specific details regarding functional levels. Occupational Therapy Discharge Recommendations are: Recommended discharge disposition: home, home with assist (vs) Post discharge occupational therapy recommendation: pt is motivated participant Planned Interventions:ADL retraining, bed mobility training, transfer training Recommended Frequency: 4 times/wk, 5 times/wk Patient Status/Goals: Reflects last filed data and may be from multiple contributors. Bed Mobility Increased time and effort. No assistance required Assistive Device: bed rails Supine to Sit, Level of Udell: modified independent Sit to Supine, Level of Udell: not tested Safety Issues: decreased use of legs for bridging/pushing Impairments: decreased flexibility, pain, strength decreased, ROM decreased Transfers Increased time, but pt. able to safely manage FWW and complete transfers. Pt. has tub bench at home. Demonstrated safe transfer with tub bench after demonstration. Sit-Stand, Level of Udell: modified independent Stand-Sit, Level of Udell: modified independent [id number], Assistive Device: 2 wheeled walker (FWW) Tub, Level of Udell: stand by assist, verbal cues required Tub, Assistive Device: 2 wheeled walker (FWW), tub bench Safety Issues: weight-shifting ability decreased Impairments: decreased flexibility, ROM decreased, strength decreased, pain OT Goal Review Date Most Recent Value STG Review Date 12/27/17 at 12/20/2017 1012 LB Dressing Goal Most Recent Value STG Status new at 12/20/2017 1012 STG Udell Level modified independent at 12/20/2017 1012 STG Adaptive Equipment none at 12/20/2017 1012 Tub/Shower Transfer Goal Most Recent Value Tub/Shower Type tub at 12/20/2017 1012 STG Status progressing at 12/21/2017 1518 STG Udell Level modified independent at 12/20/2017 1012 Electronically signed by: Racquel Mcrae OT, 12/21/2017 15:29 lan of Care - Ronel Cadena Chaplain - 12/21/2017 11:39 AM PDTProblem: Patient Care Overview (Adult) Goal: Care Team Goals & Evaluation PROBLEM-RELATED GOALS: Patient will remain free from falls/injury throughout the time of admission until discharge on 12/21/17 Patient will demonstrate increased movement of RLE and efficiently weight bear at tolerated on the RLE by 12/21/17 Patient will achieve adequate pain relieve of 3/10 or less by time of discharge on 12/21/17 Patient will remain free from infection and demonstrate wound healing by time of discharge on 12/21/17 5. Prevent post operative hypoxia by 12/22/17 6. Prevent post operative atelectasis/pneumonia by 12/22/17 7. Patient will be modified independent with ambulation in the hallway by 12/22/2017 STRATEGY TO ACHIEVE GOALS: Routinely round on patient to ensure safety measures are in place and patient's needs are m et appropriately Assess patients CMS and muscle strengths, encourage AROM of RLE, and ambulation Routinely assess patients pain and implement non-pharmacologic and pharmacologic interventi ons as appropriate Assess patients surgical site for any sign/symptoms of infection, monitor vital signs, and lab results 5. Titrate oxygen to room air keeping oxygen saturation at or >92% 6. Patient to achieve 75% of predicted normal for inspirometer and or using on own -Patient will participate in PT activities Spiritual Care Raúl Day is a 67 y.o. male who is admitted for Primary osteoarthritis of both knees (M17.0), Pain in both knees, unspecified chronicity (M25.561, M25.562). Extractions Technician visit was in response to a nurse's spiritual care consult request. Spiritual Evaluation: The patient was resting in a bed with his Bible and a Bible study guide open on his lap. H e welcomed the presence of a deli/bakery associate. 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 He seems to be well-supported by friends/fam milton who were calling. He has a strong heidi in God and he welcomed prayer. Spiritual Interventions: The deli/bakery associate attended, offered care, witnessed patient's story, explored meaning and offere d prayer. Spiritual Outcomes: The patient expressed relief for the pain control he was experiencing. He has a strong kimberly th and seemed to be content and hopeful. Spiritual Goals/Follow-up: Follow up as needed or requested. lan of [facility] - Radha Lechuga RN - 12/21/2017 4:11 AM PDTProblem: Patient Care Overview (Adult) Goal: Care Team Goals & Evaluation PROBLEM-RELATED GOALS: Patient will remain free from falls/injury throughout the time of admission until discharge on 12/21/17 Patient will demonstrate increased movement of RLE and efficiently weight bear at tolerated on the RLE by 12/21/17 Patient will achieve adequate pain relieve of 3/10 or less by time of discharge on 12/21/17 Patient will remain free from infection and demonstrate wound healing by time of discharge on 12/21/17 5. Prevent post operative hypoxia by 12/22/17 6. Prevent post operative atelectasis/pneumonia by 12/22/17 7. Patient will be modified independent with ambulation in the hallway by 12/22/2017 STRATEGY TO ACHIEVE GOALS: Routinely round on patient to ensure safety measures are in place and patient's needs are m et appropriately Assess patients CMS and muscle strengths, encourage AROM of RLE, and ambulation Routinely assess patients pain and implement non-pharmacologic and pharmacologic interventi ons as appropriate Assess patients surgical site for any sign/symptoms of infection, monitor vital signs, and lab results 5. Titrate oxygen to room air keeping oxygen saturation at or >92% 6. Patient to achieve 75% of predicted normal for inspirometer and or using on own -Patient will participate in PT activities Outcome: Improving Goal Evaluation: heart regular, lungs clear on R/A. Denies N/T. M/S 06/30. D/P moderate. Some old drainage to RLE, no new drainage. Oxycodone given for pain. ambulating 1 person, FWW. Bowel tones activ e. Last BM 12/20/17. Passing flatus. lan of Care - Oleg arroyo, Enedelia Cueva, TANK REFINISHER - 12/20/2017 6:02 PM PDTProblem: Discharge Planning Goal: Patient's discharge needs will be identified in a timely manner Discharge Planning: Met with patient as he was up sitting in a chair. Kvng is alert, oriented and enjoys conver sing. Kvng states that he lives alone in a single level home with one step in the front and one in the back. He reports that he is independent at baseline. In anticipation of his surgery he has a walker, cane, transfer bench, grabber and high toil et. He denies using any other DME, and states he does not feel that he will need anything a dditional before being discharged. Kvng states that he has a good support system in [place] and that he should get along with out any problems. PCP: Dr. Maurer Preferred pharmacy: [facility] When asked who his ride would be when discharged, he states that a lady named Ronel ([phone], he thinks) told him who would be picking him up. This CM has been unable to locate who t his ride might be. CM should follow up with patient or try calling Ronel to determine if the re is a ride pending. DISPO: Home when ready for discharge. Plans to go to the [facility] in [place] for rehab. lan of Jitendra Radford RN - 12/20/2017 5:30 PM PDTProblem: Patient Care Overview (Adult) Goal: Care Team Goals & Evaluation PROBLEM-RELATED GOALS: Patient will remain free from falls/injury throughout the time of admission until discharge on 12/21/17 Patient will demonstrate increased movement of RLE and efficiently weight bear at tolerated on the RLE by 12/21/17 Patient will achieve adequate pain relieve of 3/10 or less by time of discharge on 12/21/17 Patient will remain free from infection and demonstrate wound healing by time of discharge on 12/21/17 5. Prevent post operative hypoxia by 12/22/17 6. Prevent post operative atelectasis/pneumonia by 12/22/17 7. Patient will be modified independent with ambulation in the hallway by 12/22/2017 STRATEGY TO ACHIEVE GOALS: Routinely round on patient to ensure safety measures are in place and patient's needs are m et appropriately Assess patients CMS and muscle strengths, encourage AROM of RLE, and ambulation Routinely assess patients pain and implement non-pharmacologic and pharmacologic interventi ons as appropriate Assess patients surgical site for any sign/symptoms of infection, monitor vital signs, and lab results 5. Titrate oxygen to room air keeping oxygen saturation at or >92% 6. Patient to achieve 75% of predicted normal for inspirometer and or using on own -Patient will participate in PT activities Outcome: Improving Goal Evaluation: Don has remained free from falls and injury on this shift, SBA FWW to bathroom, JOSE R Wrap C DI, polar care on, educated patient on PRN pain medication with encouragement of some prior to therapy, tolerated meals well, voids without difficulty, BM today, calls appropriately an d makes needs known. lan of Care - Derik Alfredo, EYE PHYSICIAN - 12/20/2017 1:57 PM PDTFormatting of this note might be different fr om the original. Problem: Patient Care Overview (Adult) Goal: Care Team Goals & Evaluation PROBLEM-RELATED GOALS: Patient will remain free from falls/injury throughout the time of admission until discharge on 12/21/17 Patient will demonstrate increased movement of RLE and efficiently weight bear at tolerated on the RLE by 12/21/17 Patient will achieve adequate pain relieve of 3/10 or less by time of discharge on 12/21/17 Patient will remain free from infection and demonstrate wound healing by time of discharge on 12/21/17 5. Prevent post operative hypoxia by 12/22/17 6. Prevent post operative atelectasis/pneumonia by 12/22/17 7. Patient will be modified independent with ambulation in the hallway by 12/22/2017 STRATEGY TO ACHIEVE GOALS: Routinely round on patient to ensure safety measures are in place and patient's needs are m et appropriately Assess patients CMS and muscle strengths, encourage AROM of RLE, and ambulation Routinely assess patients pain and implement non-pharmacologic and pharmacologic interventi ons as appropriate Assess patients surgical site for any sign/symptoms of infection, monitor vital signs, and lab results 5. Titrate oxygen to room air keeping oxygen saturation at or >92% 6. Patient to achieve 75% of predicted normal for inspirometer and or using on own -Patient will participate in PT activities Outcome: Improving Physical Therapy Plan of Care Treatment Note Summary: RN cleared patient for participation and patient agreeable to PT. Raúl has be en participating in physical therapy for treatment of Impaired functional mobility, decrease d flexibility, and pain following elective left total knee arthroplasty. Patient is now salazar ghtbearing as tolerated left lower extremity.. Emphasis of session included bed mobility tr ansfer training, gt training, stair navigation. Patient demonstrates progress towards funct ional goals as evidenced by pt able to navigate stair x4 with close Sup this session, min in creased tolerance with ambulation, pt able to complete bed mobility at a Martita level this ses natalya. Pt cont to present with RLE pain/weakness with WB improving throughout session, improv ising sequencing and safety with transfers and gt training this session. Remaining barriers to discharge and functional limitations include decreased bed mobility, decreased functiona l transfers, decreased functional gait distance, decreased gait velocity, stairs at home and not yet able to mobilize at level safe for home discharge. Raúl will benefit from continued therapeutic intervention to address ongoing impairments and increase safety and independence with activities necessary for safe discharge. Refer be low for specific details regarding functional levels. Physical Therapy Discharge Recommendations are: Recommended discharge disposition: home Post discharge physical therapy recommendation: outpatient therapy Equipment Recommendations: 2 wheeled walker (FWW) Planned Interventions: balance training, bed mobility training, gait training, home exerci se program, patient/family education, ROM (Range of Motion), transfer training Recommended Frequency: 2 times/day Patient Status/Goals: Reflects last filed data and may be from multiple contributors. Gait vc for heel/toe strike to promote normalized gt pattern, AD mgmt, sequencing and safety, ex tra time/effort d/t RLE pain/weakness, reduced conner, general safety d/t slight instabilit y with turn navigation, reduced Level of Udell: supervised, verbal cues required Assistive Device: 2 wheeled walker (FWW) Distance (feet): 145' Impairments: impaired balance, decreased flexibility, motor control impaired Stairs extra time/effort d/t RLE weakness/pain, vc for sequencing and hand palcement, good- return demo post visual demo and vc this session Number of Stairs: 4 Handrail Location: both sides Level of Udell: supervised, verbal cues required Assistive Device: 2 rails Technique Used: step to step (ascending), step to step (descending) Safety Issues: sequencing ability decreased, weight-shifting ability decreased Impairments: pain, strength decreased, decreased flexibility, ROM decreased Transfers pt display good- return demo for sequencing and safety this session, no physical assist thi s session, vc for LE positioning, pacing this [facility] Bed-Chair, Level of Udell: supervised, verbal cues required Chair-Bed, Level of Udell: supervised, verbal cues required [id number], Assistive Device: 2 wheeled walker (FWW) Sit-Stand, Level of Udell: verbal cues required, supervised Stand-Sit, Level of Udell: verbal cues required, supervised [id number], Assistive Device: 2 wheeled walker (FWW) Maintain Weight Bearing Status: assist to maintain weight bearing status, cues to maintain weight bearing status Safety Issues: balance decreased during turns, weight-shifting ability decreased Impairments: decreased flexibility, impaired balance, pain, strength decreased, ROM decreas ed Bed Mobility no physical assist this session, pt able to compelte at a Martita level this session, extra ti me/effort d/t RLE pain/weakness Assistive Device: bed rails Scoot/Bridge, Level of Udell: modified independent Supine to Sit, Level of Udell: modified independent Sit to Supine, Level of Udell: modified independent Safety Issues: decreased use of legs for bridging/pushing Impairments: decreased flexibility, pain, strength decreased, ROM decreased Balance Sitting Balance: Static: normal balance Sitting Balance: Dynamic: good balance Standing Balance: Static: good balance Standing Balance: Dynamic: fair balance Therapeutic Exercise Seated exercises: bilateral, ankle pumps, marching, long arc quads, knee flexion (glut sets ) Repetitions: x10 Functional Endurance good- with mild activities presented this session, secondary to RLE pain/weakness, no rest breaks this session PT Goal Review Date Most Recent Value STG Review Date 12/22/17 at 12/19/2017 1720 [id number] Goal Most Recent Value STG Status met at 12/20/2017 1357 STG Udell Level modified independent at 12/19/2017 1720 STG Assistive Device none at 12/19/2017 1720 [id number] Goal Most Recent Value STG Status progressing at 12/20/2017 1357 STG Udell Level modified independent at 12/19/2017 1720 STG Assistive Device 2 wheeled walker (FWW) at 12/19/2017 1720 Gait Goal Most Recent Value STG Status progressing at 12/20/2017 1357 STG Udell Level modified independent at 12/19/2017 1720 STG Assistive Device 2 wheeled walker (FWW) at 12/19/2017 1720 STG Distance (feet) 150 feet at 12/19/2017 1720 Stair Goal Most Recent Value STG Status progressing at 12/20/2017 1357 STG Udell Level modified independent at 12/19/2017 1720 STG Assistive Device 2 rails at 12/19/2017 1720 STG Number of Stairs 2 at 12/19/2017 1720 Additional Goal #1 PT Most Recent Value STG Status progressing at 12/20/2017 1357 STG Patient will demonstrate good understanding of TKA exercises and receive a printed johns dout at 12/19/2017 1720 Electronically signed by: Derik Alfredo PTA, 12/20/2017 16:58 lan of Care - Racquel Alexander OT - 12/20/2017 10:12 AM PDT Problem: Patient Care Overview (Adult) Goal: Care Team Goals & Evaluation PROBLEM-RELATED GOALS: Patient will remain free from falls/injury throughout the time of admission until discharge on 12/21/17 Patient will demonstrate increased movement of RLE and efficiently weight bear at tolerated on the RLE by 12/21/17 Patient will achieve adequate pain relieve of 3/10 or less by time of discharge on 12/21/17 Patient will remain free from infection and demonstrate wound healing by time of discharge on 12/21/17 5. Prevent post operative hypoxia by 12/22/17 6. Prevent post operative atelectasis/pneumonia by 12/22/17 7. Patient will be modified independent with ambulation in the hallway by 12/22/2017 STRATEGY TO ACHIEVE GOALS: Routinely round on patient to ensure safety measures are in place and patient's needs are m et appropriately Assess patients CMS and muscle strengths, encourage AROM of RLE, and ambulation Routinely assess patients pain and implement non-pharmacologic and pharmacologic interventi ons as appropriate Assess patients surgical site for any sign/symptoms of infection, monitor vital signs, and lab results 5. Titrate oxygen to room air keeping oxygen saturation at or >92% 6. Patient to achieve 75% of predicted normal for inspirometer and or using on own -Patient will participate in PT activities Occupational Therapy Plan of Care Initial Evaluation, Treatment Note Summary: Raúl presents to occupational therapy with decreased independence with ADL s/ p R TKA. Objective exam reveals impairments with ergonomics and body mechanics, gait, locom otion, and balance, muscle performance. Emphasis of session included LB dressing, grooming a t sink, and toilet transfer. Pt. Is motivated to participate and did not require physical as sistance with functional mobility this session. Barriers to discharge and functional limitat ions include decreased functional activity tolerance, decreased bed mobility, decreased func tional transfers, decreased ability to perform BADLs and not yet able to mobilize at level s afe for home discharge. Raúl will benefit from therapeutic intervention to address impairments and increase safet y and independence with activities necessary for safe discharge. Refer below for specific d etails regarding functional levels. Precautions/Limitations: weight bearing status Precaution Comment: WBAT RLE Left Lower Extremity Weight-Bearing: weight-bearing as tolerated Right Lower Extremity Weight-Bearing: weight-bearing as tolerated Previous Level of Function: Transferring: independent Ambulation: independent Toileting: independent Bathing: independent Dressing: independent Eating: independent Communication: understands/communicates without difficulty Swallowin-->swallows foods/liquids without difficulty Equipment Currently Used at Home: raised toilet, bath bench Prior Functional Level Comment: Patient reports he has intermittently used a cane for ambul ation due to pain. Otherwise he is independent with ADLs. Potential available assistance at discharge: Significant Relationships: brother Primary Roles/Responsibilities: (Retired) Provides Primary Care For: no one Living Environment/Accessibility: Lives With: alone Living Arrangements: house Home Accessibility: no concerns Number of Stairs to Enter Home: 1 Number of Stairs Within Home: 0 Financial Concerns: none Transportation Available: none Patient/Family s Goals: To return home and resume outdoor activities, like gardening Rehabilitation potential: good, to achieve stated therapy goals Occupational Therapy Discharge Recommendations are: Recommended discharge disposition: home, home with assist (vs) Post discharge occupational therapy recommendation: pt is motivated participant Equipment Recommendations: Planned Interventions:ADL retraining, bed mobility training, transfer training Recommended Frequency: 4 times/wk, 5 times/wk Patient Status/Goals: Reflects last filed data and may be from multiple contributors. ADLs Pt. able to doff and don socks without AE by bending over to reach feet. LB Dressing, Level of Udell: stand by assist, verbal cues required, set up required Assistive Device: none LB Dressing Assess/Train, Position: sitting LB Dressing Assess/Train, Impairments: impaired balance, decreased flexibility Pt. stood to brush teeth at sink. Grooming, Level of Udell: stand by assist Assistive Device: none Grooming Assess/Train, Position: standing Grooming Assess/Train, Impairments: impaired balance, pain Bed Mobility No assistance needed. Additional time and effort Assistive Device: bed rails, HOB elevated Supine to Sit, Level of Udell: supervised Sit to Supine, Level of Udell: supervised Safety Issues: decreased use of legs for bridging/pushing Impairments: decreased flexibility, motor control impaired Transfers Pt. walked to bathroom and transferred to toilet with commode frame. Brushed teeth while st anding at sink. Sit-Stand, Level of Udell: stand by assist, verbal cues required Stand-Sit, Level of Udell: stand by assist, verbal cues required [id number], Assistive Device: 2 wheeled walker (FWW) Toilet, Level of Udell: set up required, verbal cues required, stand by assist Toilet, Assistive Device: 2 wheeled walker (FWW), commode (3 in 1) Safety Issues: balance decreased during turns, weight-shifting ability decreased Impairments: decreased flexibility, motor control impaired, impaired balance ROM BUE WNL Strength L UE Strength: Grossly 5/5 R UE Strength: Grossly 5/5 OT Goal Review Date Most Recent Value STG Review Date 12/27/17 at 12/20/2017 1012 LB Dressing Goal Most Recent Value STG Status new at 12/20/2017 1012 STG Udell Level modified independent at 12/20/2017 1012 STG Adaptive Equipment none at 12/20/2017 1012 Tub/Shower Transfer Goal Most Recent Value Tub/Shower Type tub at 12/20/2017 1012 STG Status new at 12/20/2017 1012 STG Udell Level modified independent at 12/20/2017 1012 Electronically signed by: Racquel Mcrae OT, 12/20/2017 11:51 lan of Care - Kristi Morris, PT - 12/20/2017 8:58 AM PDT Problem: Patient Care Overview (Adult) Goal: Care Team Goals & Evaluation PROBLEM-RELATED GOALS: Patient will remain free from falls/injury throughout the time of admission until discharge on 12/21/17 Patient will demonstrate increased movement of RLE and efficiently weight bear at tolerated on the RLE by 12/21/17 Patient will achieve adequate pain relieve of 3/10 or less by time of discharge on 12/21/17 Patient will remain free from infection and demonstrate wound healing by time of discharge on 12/21/17 5. Prevent post operative hypoxia by 12/22/17 6. Prevent post operative atelectasis/pneumonia by 12/22/17 7. Patient will be modified independent with ambulation in the hallway by 12/22/2017 STRATEGY TO ACHIEVE GOALS: Routinely round on patient to ensure safety measures are in place and patient's needs are m et appropriately Assess patients CMS and muscle strengths, encourage AROM of RLE, and ambulation Routinely assess patients pain and implement non-pharmacologic and pharmacologic interventi ons as appropriate Assess patients surgical site for any sign/symptoms of infection, monitor vital signs, and lab results 5. Titrate oxygen to room air keeping oxygen saturation at or >92% 6. Patient to achieve 75% of predicted normal for inspirometer and or using on own -Patient will participate in PT activities Outcome: Improving Physical Therapy Plan of Care Treatment Note Summary: Raúl has been participating in physical therapy for treatment of Impaired fun ctional mobility, decreased flexibility, and pain following elective left total knee arthrop lasty. Patient is now weightbearing as tolerated left lower extremity.. Emphasis of sessio n included bed mob, transfers, gait and pt ed. Patient demonstrates progress towards functi onal goals as evidenced by diminishing need for assistance w/ functional mobility and improv ing tolerance for activity w/ increased gait distance w/ improving gait pattern. Pt now able to take full wt thru RLE w/o knee buckling. Remaining barriers to discharge and functional limitations include decreased bed mobility, decreased functional transfers, decreased functional gait distance, decreased gait velocity, stairs at home and not yet able to mobilize at level safe for home discharge. Raúl will benefit from continued therapeutic intervention to address ongoing impairments and increase safety and independence with activities necessary for safe discharge. Refer be low for specific details regarding functional levels. Physical Therapy Discharge Recommendations are: Recommended discharge disposition: home Post discharge physical therapy recommendation: outpatient therapy Equipment Recommendations: 2 wheeled walker (FWW) Planned Interventions: balance training, bed mobility training, gait training, home exerci se program, patient/family education, ROM (Range of Motion), transfer training Recommended Frequency: 2 times/day Patient Status/Goals: Reflects last filed data and may be from multiple contributors. Gait cuing for step sequencing and pattern w/ good return demo of smooth swing thru pattern Level of Udell: supervised, verbal cues required Assistive Device: 2 wheeled walker (FWW) Distance (feet): 100 Impairments: impaired balance, decreased flexibility, motor control impaired Stairs Stairs not assessed at this time however pt does have a step to access home therefore stair training is indicated Transfers cuing for sequencing and hand placement, no additional assist needed Sit-Stand, Level of Udell: stand by assist, verbal cues required Stand-Sit, Level of Udell: stand by assist, verbal cues required Wan-Xsuon-Tux, Assistive Device: 2 wheeled walker (FWW) Maintain Weight Bearing Status: assist to maintain weight bearing status, cues to maintain weight bearing status Safety Issues: balance decreased during turns, weight-shifting ability decreased Impairments: decreased flexibility, motor control impaired, impaired balance Bed Mobility good technique, no assist needed, additional time and effort Assistive Device: bed rails, HOB elevated Scoot/Bridge, Level of Udell: supervised, verbal cues required Supine to Sit, Level of Udell: supervised, verbal cues required Sit to Supine, Level of Udell: supervised, verbal cues required Safety Issues: decreased use of legs for bridging/pushing Impairments: decreased flexibility, motor control impaired Balance Sitting Balance: Static: normal balance Sitting Balance: Dynamic: good balance Standing Balance: Static: good balance Standing Balance: Dynamic: fair balance Therapeutic Exercise Standing exercises: weight shifting Repetitions: 10 Functional Endurance good PT Goal Review Date Most Recent Value STG Review Date 12/22/17 at 12/19/2017 1720 [id number] Goal Most Recent Value STG Status progressing at 12/20/2017 0902 STG Udell Level modified independent at 12/19/2017 1720 STG Assistive Device none at 12/19/2017 1720 Axo-Dtpyz-Oro Goal Most Recent Value STG Status progressing at 12/20/2017 0902 STG Udell Level modified independent at 12/19/2017 1720 STG Assistive Device 2 wheeled walker (FWW) at 12/19/2017 1720 Gait Goal Most Recent Value STG Status progressing at 12/20/2017 0902 STG Udell Level modified independent at 12/19/2017 1720 STG Assistive Device 2 wheeled walker (FWW) at 12/19/2017 1720 STG Distance (feet) 150 feet at 12/19/2017 1720 Stair Goal Most Recent Value STG Status new at 12/19/2017 1720 STG Udell Level modified independent at 12/19/2017 1720 STG Assistive Device 2 rails at 12/19/2017 1720 STG Number of Stairs 2 at 12/19/2017 1720 Additional Goal #1 PT Most Recent Value STG Status new at 12/19/2017 1720 STG Patient will demonstrate good understanding of TKA exercises and receive a printed johns dout at 12/19/2017 1720 Electronically signed by: Kristi Sharma, PT, 12/20/2017 9:08 lan of Radha Hardwick RN - 12/20/2017 4:56 AM PDTProblem: Patient Care Overview (Adult) Goal: Care Team Goals & Evaluation PROBLEM-RELATED GOALS: Patient will remain free from falls/injury throughout the time of admission until discharge on 12/21/17 Patient will demonstrate increased movement of RLE and efficiently weight bear at tolerated on the RLE by 12/21/17 Patient will achieve adequate pain relieve of 3/10 or less by time of discharge on 12/21/17 Patient will remain free from infection and demonstrate wound healing by time of discharge on 12/21/17 5. Prevent post operative hypoxia by 12/22/17 6. Prevent post operative atelectasis/pneumonia by 12/22/17 7. Patient will be modified independent with ambulation in the hallway by 12/22/2017 STRATEGY TO ACHIEVE GOALS: Routinely round on patient to ensure safety measures are in place and patient's needs are m et appropriately Assess patients CMS and muscle strengths, encourage AROM of RLE, and ambulation Routinely assess patients pain and implement non-pharmacologic and pharmacologic interventi ons as appropriate Assess patients surgical site for any sign/symptoms of infection, monitor vital signs, and lab results 5. Titrate oxygen to room air keeping oxygen saturation at or >92% 6. Patient to achieve 75% of predicted normal for inspirometer and or using on own -Patient will participate in PT activities Outcome: Improving Goal Evaluation: Heart regular, lungs on R/A. Numbness to RLE. Pulses 2+. Able to wiggle toes. D/P moderate. Refuses to take anything for pain. Patient stated he wants to try ice and position changes, but says he will take pain medication if pain gets to unbearable. Dressing to RLE CDI. 1 pe rson to BSC, FWW. Bowel tones active, passing flatus. Last BM 12/18/17. Denies N/V. Tolerati ng general diet. lan of Jessica Cope RN - 12/19/2017 6:50 PM PDTProblem: Patient Care Overview (Adult) Goal: Care Team Goals & Evaluation PROBLEM-RELATED GOALS: Patient will remain free from falls/injury throughout the time of admission until discharge on 12/21/17 Patient will demonstrate increased movement of RLE and efficiently weight bear at tolerated on the RLE by 12/21/17 Patient will achieve adequate pain relieve of 3/10 or less by time of discharge on 12/21/17 Patient will remain free from infection and demonstrate wound healing by time of discharge on 12/21/17 5. Prevent post operative hypoxia by 12/22/17 6. Prevent post operative atelectasis/pneumonia by 12/22/17 7. Patient will be modified independent with ambulation in the hallway by 12/22/2017 STRATEGY TO ACHIEVE GOALS: Routinely round on patient to ensure safety measures are in place and patient's needs are m et appropriately Assess patients CMS and muscle strengths, encourage AROM of RLE, and ambulation Routinely assess patients pain and implement non-pharmacologic and pharmacologic interventi ons as appropriate Assess patients surgical site for any sign/symptoms of infection, monitor vital signs, and lab results 5. Titrate oxygen to room air keeping oxygen saturation at or >92% 6. Patient to achieve 75% of predicted normal for inspirometer and or using on own -Patient will participate in PT activities Outcome: Improving Goal Evaluation: Patient alert and oriented x3, free from falls/inury, calls appropriately to make needs kno wn. Patient requested no pain medication and would prefer non-pharmacological interventions. CPM and polar care utilized, IV antibiotics received, patient advanced to a full liquid t for the evening. Patient worked with PT and is a 1 person assist with pivot transfer to BS C. Dressing to RLE is CDI, patient received nerve block and reports numbness to RLE, pulse t o RLE are 2+ and palapable, no discoloration present, a little cooler to touch than the LLE. Will continue to monitor. lan of Care - Nico Biswas, PT - 12/19/2017 5:20 PM PDT Problem: Patient Care Overview (Adult) Goal: Care Team Goals & Evaluation PROBLEM-RELATED GOALS: Patient will remain free from falls/injury throughout the time of admission until discharge on 12/21/17 Patient will demonstrate increased movement of RLE and efficiently weight bear at tolerated on the RLE by 12/21/17 Patient will achieve adequate pain relieve of 3/10 or less by time of discharge on 12/21/17 Patient will remain free from infection and demonstrate wound healing by time of discharge on 12/21/17 5. Prevent post operative hypoxia by 12/22/17 6. Prevent post operative atelectasis/pneumonia by 12/22/17 7. Patient will be modified independent with ambulation in the hallway by 12/22/2017 STRATEGY TO ACHIEVE GOALS: Routinely round on patient to ensure safety measures are in place and patient's needs are m et appropriately Assess patients CMS and muscle strengths, encourage AROM of RLE, and ambulation Routinely assess patients pain and implement non-pharmacologic and pharmacologic interventi ons as appropriate Assess patients surgical site for any sign/symptoms of infection, monitor vital signs, and lab results 5. Titrate oxygen to room air keeping oxygen saturation at or >92% 6. Patient to achieve 75% of predicted normal for inspirometer and or using on own -Patient will participate in PT activities Outcome: Improving Physical Therapy Plan of Care Initial Evaluation, Treatment Note Summary: Raúl presents to physical therapy with Impaired functional mobility, decrease d flexibility, and pain following elective left total knee arthroplasty. Patient is now salazar ghtbearing as tolerated left lower extremity.. Objective exam reveals impairments with ergo nomics and body mechanics, gait, locomotion, and balance, muscle performance. Emphasis of s ession to determine current functional level, bed mobility training, transfer training from bed to commode using frontwheel walker and pivot method, weight-shifting tolerance, safety, application of CPM machine. Barriers to discharge and functional limitations include decreas ed functional transfers, decreased functional gait distance, decreased gait velocity, stairs at home, not able to navigate stairs, lives alone and not yet able to mobilize at level saf e for home discharge. Raúl will benefit from therapeutic intervention to address impairments and increase safet y and independence with activities necessary for safe discharge. Refer below for specific d etails regarding functional levels. Precautions/Limitations: weight bearing status Precaution Comment: Weightbearing as tolerated left lower extremity Left Lower Extremity Weight-Bearing: weight-bearing as tolerated Right Lower Extremity Weight-Bearing: full weight-bearing Previous Level of Function: Transferring: independent Ambulation: independent Toileting: independent Bathing: independent Dressing: independent Eating: independent Communication: understands/communicates without difficulty Swallowin-->swallows foods/liquids without difficulty Equipment Currently Used at Home: cane, straight, single point, shower chair, grab bars, ra ised toilet (patient collected these items for home prior to admission) Prior Functional Level Comment: Patient reports he has intermittently used a cane for ambul ation due to pain. Otherwise he is independent with ADLs. Potential available assistance at discharge: Significant Relationships: brother Primary Roles/Responsibilities: (Retired) Provides Primary Care For: no one Living Environment/Accessibility: Lives With: alone (friends near by) Living Arrangements: house Home Accessibility: no concerns Number of Stairs to Enter Home: 1 Number of Stairs Within Home: 0 Financial Concerns: none Transportation Available: none Patient/Family s Goals: Return home and to walking without pain. Rehabilitation potential: good, to achieve stated therapy goals Physical Therapy Discharge Recommendations are: Recommended discharge disposition: home Post discharge physical therapy recommendation: ongoing low intensity therapy, will benefi t from structured setting, pt is motivated participant, outpatient therapy Equipment Recommendations: 2 wheeled walker (FWW) Planned Interventions: balance training, bed mobility training, gait training, home exerci se program, patient/family education, ROM (Range of Motion), transfer training Recommended Frequency: 2 times/day Patient Status/Goals: Reflects last filed data and may be from multiple contributors. Gait Level of Udell: not appropriate to assess Transfers Moderate physical assistance at left knee for buckling due to residual effects of nerve blo ck. With instruction patient was able to straighten legs underneath him for support, able t o complete bed to commode transfer with heavy use of arms on front will walker. Sit-Stand, Level of Udell: moderate assist (50% patient effort), set up required, ve rbal cues required, tactile cues required Stand-Sit, Level of Udell: moderate assist (50% patient effort), set up required, ve rbal cues required, tactile cues required Bps-[id number]-Icl, Assistive Device: 2 wheeled walker (FWW) Toilet, Level of Udell: moderate assist (50% patient effort), set up required, verba l cues required, tactile cues required Toilet, Assistive Device: 2 wheeled walker (FWW), commode (3 in 1) Maintain Weight Bearing Status: assist to maintain weight bearing status, cues to maintain weight bearing status Safety Issues: balance decreased during turns, weight-shifting ability decreased Impairments: decreased flexibility, pain Bed Mobility No physical assistance necessary patient able to manage lower extremity to edge of bed and sit unassisted. Assistive Device: bed rails, HOB elevated Scoot/Bridge, Level of Udell: stand by assist Supine to Sit, Level of Udell: stand by assist Sit to Supine, Level of Udell: stand by assist Safety Issues: decreased use of legs for bridging/pushing Impairments: decreased flexibility, pain Balance Sitting Balance: Static: good balance Sitting Balance: Dynamic: good balance Standing Balance: Static: poor balance Standing Balance: Dynamic: unable to balance Therapeutic Exercise Standing exercises: weight shifting Repetitions: 10 Functional Endurance Fair, for activities performed ROM L LE ROM: Within functional limits except knee extension/flexion not tested due to Jose R wrap R LE ROM: Within functional limits Strength L LE Strength: Grossly 4/5 except knee extension/flexion and plantar flexion/dorsiflexion n ot tested due to residual effects of nerve block R LE Strength: Grossly 4/5 PT Goal Review Date Most Recent Value STG Review Date 12/22/17 at 12/19/2017 1720 [id number]-Cxb-Vtnygf Goal Most Recent Value STG Status new at 12/19/2017 1720 STG Udell Level modified independent at 12/19/2017 1720 STG Assistive Device none at 12/19/2017 1720 Vlv-Lydms-Dul Goal Most Recent Value STG Status new at 12/19/2017 1720 STG Udell Level modified independent at 12/19/2017 1720 STG Assistive Device 2 wheeled walker (FWW) at 12/19/2017 1720 Gait Goal Most Recent Value STG Status new at 12/19/2017 1720 STG Udell Level modified independent at 12/19/2017 1720 STG Assistive Device 2 wheeled walker (FWW) at 12/19/2017 1720 STG Distance (feet) 150 feet at 12/19/2017 1720 Stair Goal Most Recent Value STG Status new at 12/19/2017 1720 STG Udell Level modified independent at 12/19/2017 1720 STG Assistive Device 2 rails at 12/19/2017 1720 STG Number of Stairs 2 at 12/19/2017 1720 Additional Goal #1 PT Most Recent Value STG Status new at 12/19/2017 1720 STG Patient will demonstrate good understanding of TKA exercises and receive a printed johns dout at 12/19/2017 1720 Electronically signed by: Nico Park, PT, 12/19/2017 17:47 lan of Care - Jan Bain RRT - 12/19/2017 3:52 PM PDTProblem: Patient Care Overview (Adult) Goal: Care Team Goals & Evaluation PROBLEM-RELATED GOALS: Patient will remain free from falls/injury throughout the time of admission until discharge on 12/21/17 Patient will demonstrate increased movement of RLE and efficiently weight bear at tolerated on the RLE by 12/21/17 Patient will achieve adequate pain relieve of 3/10 or less by time of discharge on 12/21/17 Patient will remain free from infection and demonstrate wound healing by time of discharge on 12/21/17 5. Prevent post operative hypoxia by 12/22/17 6. Prevent post operative atelectasis/pneumonia by 12/22/17 STRATEGY TO ACHIEVE GOALS: Routinely round on patient to ensure safety measures are in place and patient's needs are m et appropriately Assess patients CMS and muscle strengths, encourage AROM of RLE, and ambulation Routinely assess patients pain and implement non-pharmacologic and pharmacologic interventi ons as appropriate Assess patients surgical site for any sign/symptoms of infection, monitor vital signs, and lab results 5. Titrate oxygen to room air keeping oxygen saturation at or >92% 6. Patient to achieve 75% of predicted normal for inspirometer and or using on own Goal Evaluation: Patient oxygen saturation on room air = 99%. Patient achieved 85% of predicted normal for inspirometer but became confused as to how to use inspirometer. He n eeds more instruction. Will continue to follow p Note - Julius Nowak MD - 12/19/2017 1:54 PM PDTDate of surgery: 12/19/17 Operating surgeon: Dr. Julius Nowak Independent Film Maker: STEVE Sanchez Anesthesiologist: Dr. Keaton Munoz Preoperative diagnosis: Advanced degenerative joint disease of the right knee Postoperative diagnosis: same Title of procedure: Right total knee joint arthroplasty utilizing Norah Persona componen ts including a size 9 standard width right CR cemented femoral component, size F right stemm ed tibial component, an 11 mm MC articular surface, and a 35 mm all poly patella. History and reason for surgery: Raúl Day is a 67 y.o. male with a long histo ry of right knee pain. He has failed conservative measures and is having difficulty perform ing activities of daily living. The patient has been having increasingly severe right knee p ain and would like to proceed with surgery. X-rays of the right knee show advanced varus os teoarthrosis of the knee joint and therefore is felt to be an appropriate surgical candidate . Therefore, the planned surgical procedure with its risks, possible complications, expecte d prognosis, and treatment alternatives was discussed with the patient. Risks and possible complications were listed but not limited to, infection, nerve and vessel damage, bleeding, pain, scarring, stiffness, the need for physical therapy, and the risk of anesthesia. The p atient verbalized understanding. No guarantees were given or implied other contact diligent effort. Operative procedure: After the patient signed the consent for surgery he received a regiona l anesthetic including adductor canal and I-PACK blocks from anesthesia in the preoperative area. he was then brought to the operating room where he underwent general anesthesia succe ssfully. he received appropriate size doses of Ancef and tranexamic acid. A tourniquet wa s applied to the right proximal thigh. The entire right lower extremity was prepped with al cohol and ChloraPrep and draped in the usual free and sterile manner. At this time the midd le column of the surgical safety checklist was carried out by the surgical team. We then exsanguinated the right lower extremity with an Esmarch bandage and inflated the to urniquet to 250 mmHg with a tourniquet time of 57 minutes. We made a midline anterior inci natalya carried down along the medial side of the patella. We measured the patella thickness a nd then osteotomized and removed the patellar articular surface. We then drilled the patell a for a 35 mm all poly patella and placed the patella protector. We then placed the bent kn ee retractors. We drilled a hole between the femoral condyles through which the distal fem oral alignment guide was placed set at 5 of valgus. We then attached the resection jig se t at 10 mm resection and then secured this and resected the distal femoral articular surface . We then measured the knee for AP distance and then selected the size 10 anterior posterio r chamfer cutting guide. The guide was attached and we first made the anterior cut. Howeve r, we noted that we were overly externally rotated due to the medial posterior femoral condy lar wear that allowed the guide to rotate. We therefore removed the chamfer guide and appli ed to rotational correction guide and drilled new holes. We then applied the size 9 chamfer cutting guide which now fitted well and made the appropriate anterior, posterior, and chamf er cuts and were pleased. Then directed attention to the tibia and attached the external alignment guide and secured it with a measured 4 mm resection from the worn medial tibia. We placed the appropriate ret ractors to protect the posterior structures. We then resected the tibial articular surface. We placed the size F trial tibial tray and secured this in the appropriate position we the n placed the trial femur and a trial articular surface and carried out a range of motion of the knee. We placed a 10-mm thick trial surface. We had good balance, alignment, flexion, e xtension and patellar tracking. We then drilled the femoral lug holes and removed the femoral trial. We drilled and broach ed the tibia and removed the tibial trial. We explored the posterior recess of the knee usi ng the lamina tacking stitch remover and made sure all debris was removed from the posterior recess. We t hen injected the entire interior of the knee with the first injection which included 59 cc o f 0.2% ropivacaine, 1 vial Toradol, and 0.3 cc of epinephrine. We then irrigated the knee t horoughly and used CarboJet to dry the bone. We then mixed methyl methacrylate cement with the usual antibiotics and first cemented in the size F stemmed right tibia. We then cemente d in the size 9 standard width right CR femur. We then placed a trial articular surface and held the knee in full extension while we cemented in the 35 mm patellar component. Excess cement was removed. Following secure cement hardening, we released the tourniquet with tour niquet time of 57 minutes. We then again carried out several trial articular surfaces and f ound that the 11 mm MC articular surface gave us full extension and flexion with a little me dial tightness. We therefore performed an additional medial release and found that we now h ad excellent balance, motion, and alignment and we were pleased. We then removed the trial surface and injected the interior of the knee with a second injection which included 1 vial of Exparel diluted with 30 cc of preservative-free normal saline. We then again irrigated the knee and then inserted and snapped into place the 11 mm MC articular surface. It did no t go in immediately and we removed it an found a small piece of soft tissue in the posterior recess of the tibial tray. We removed this and then we were able to fully seat the articul ar surface. Once again we noted excellent extension and flexion balance alignment and garrett lar tracking. Closure: We sprinkled in 1/2 g of vancomycin powder and 0.6 g of tobramycin powder into the medial and lateral gutters of the knee. We also had soaked the knee on several occasions throughout the case with Irrisept. We then securely closed the capsule with closely spaced interrupted [id number] sutures of #2 Vicryl. We again irrigated the knee and sprinkled the remaining half gram of vancomycin powder and 0.6 g of tobramycin powder and then closed subcutaneous tissues in two layers with 2-0 Vicryl followed by clips for the skin. We dres sed the wound with Xeroform gauze, dry gauze fluffs, ABDs, Kerlix, and a flexed past Jose R wra p. Anesthesia was terminated. The patient was transported to the recovery room in a stable co ndition. There are no immediate postoperative complications. Estimated blood loss: 30 cc. Blood replaced: None Specimens: None Prognosis: Good Electronically signed by: Julius Nowak MD 12/19/2017 13:54 documented in this encounter Plan of Treatment +--------+---------+ + + + | Date | Type | Specialty | Care Team | Description | +--------+---------+ + + + | 01/24/ | Office | Cardiology | Christiano Frost, | | | 2019 | Visit | | [address] | | | | | | [place], | | | | | | [place] [address] | | | | | | [phone] | | | | | | | | +--------+---------+ + + + documented as of this encounter Procedures + +--------+ + + + | Procedure Name | Priori | Date/Time | Associated Diagnosis | Comments | | | ty | | | | + +--------+ + + + | HEMOGLOBIN AND | Routin | 12/20/2017 | | Results for this | | HEMATOCRIT | e | 5:24 AM | | procedure are in the | | | | PDT | | results section. | + +--------+ + + + | BASIC METABOLIC | Routin | 12/20/2017 | | Results for this | | PANEL | e | 5:24 AM | | procedure are in the | | | | PDT | | results section. | + +--------+ + + + | XR KNEE RIGHT 1 - 2 | STAT | 12/19/2017 | | Results for this | | VW | | 2:16 PM | | procedure are in the | | | | PDT | | results section. | + +--------+ + + + | ARTHROPLASTY KNEE | | 12/19/2017 | Primary | | | | | 12:09 PM | osteoarthritis of | | | | | PDT | both knees (M17.0), | | | | | | Pain in both knees, | | | | | | unspecified | | | | | | chronicity (M25.561, | | | | | | M25.562) | | + +--------+ + + + +---+--------+ | | | | | Specia | | | l | | | Needs | | | JAN | | | SABRINA | | | | | | NORAH | +---+--------+ documented in this encounter Results Hemoglobin and Hematocrit (12/20/2017 5:24 AM PDT) + + + + + + | Component | Value | Ref Range | Performed | Pathologist | | | | | At | Signature | + + + + + + | Hematocrit | 38.9 (L) | 40.0 - 51.0 % | [facility] | | | | | | [facility] | | | | | | [facility] | | | | | | [facility] - | | | | | | LABORATORY | | + + + + + + | Hemoglobin | 12.8 (L) | 13.5 - 18.0 | [facility] | | | | | g/dL | [facility] | | | | | | [facility] | | | | | | [facility] - | | | | | | LABORATORY | | + + + + + + + + | Specimen | + + | Blood | + + + + + + + | Performing | Address | City/State/Zipcode | Phone Number | | Organization | | | | + + + + + | [facility] | [address] | [place] | [phone] | | [facility] | | [address] | | | - LABORATORY | | | | + + + + + Basic Metabolic Panel (12/20/2017 5:24 AM PDT) + + + + + + | Component | Value | Ref Range | Performed | Pathologist | | | | | At | Signature | + + + + + + | Na | 139 | 136 - 149 | [facility] | | | | | mmol/L | [facility] | | | | | | [facility] | | | | | | CENTER - | | | | | | LABORATORY | | + + + + + + | K | 4.6 | 3.5 - 5.1 | [facility] | | | | | mmol/L | [facility] | | | | | | [facility] | | | | | | C[facility] - | | | | | | LABORATORY | | + + + + + + | Cl | 104 | 98 - 109 mmol/L | [facility] | | | | | | [facility] | | | | | | [facility] | | | | | | C[facility] - | | | | | | LABORATORY | | + + + + + + | CO2 | 26 | 24 - 31 mmol/L | [facility] | | | | | | [facility] | | | | | | [facility] | | | | | | [facility] - | | | | | | LABORATORY | | + + + + + + | Anion Gap | 9 | 3 - 16 mmol/L | [facility] | | | | | | [facility] | | | | | | [facility] | | | | | | [facility] - | | | | | | LABORATORY | | + + + + + + | Glucose | 105 | 70 - 109 mg/dL | [facility] | | | | | | [facility] | | | | | | [facility] | | | | | | C[facility] - | | | | | | LABORATORY | | + + + + + + | BUN | 13 | 7 - 18 mg/dL | [facility] | | | | | | [facility] | | | | | | [facility] | | | | | | C[facility] - | | | | | | LABORATORY | | + + + + + + | Creatinine | 0.89 | 0.60 - 1.30 | [facility] | | | | | mg/dL | [facility] | | | | | | MEDICAL | | | | | | CENTER - | | | | | | LABORATORY | | + + + + + + | eGFR, | >60Comment: GLOMERULAR | >=60 | [facility] | | | non- | FILTRATION | mL/min/1.73m2 | [facility] | | | [place] | RATE,ESTIMATED | | MEDICAL | | | | mL/min/1.32y7Mqsz than | | CENTER - | | | | 60 Chronic kidney | | LABORATORY | | | | disease,if found over a | | | | | | 3-month period.Less than | | | | | | 15 Kidney failureFor | | | | | | | | | | | | Americans,multiply the | | | | | | calculated GFR by 1.21. | | | | | | | | | | + + + + + + | Calcium | 9.1 | 8.3 - 10.5 | [facility] | | | | | mg/dL | [facility] | | | | | | MEDICAL | | | | | | CENTER - | | | | | | LABORATORY | | + + + + + + | BUN/Creatin | 14.6 | | [facility] | | | ine Ratio | | | [facility] | | | | | | MEDICAL | | | | | | CENTER - | | | | | | LABORATORY | | + + + + + + + + | Specimen | + + | Blood | + + + + + + + | Performing | Address | City/State/Zipcode | Phone Number | | Organization | | | | + + + + + | [facility] | [address] | [place] | [phone] | | [facility] | | [address] | | | - LABORATORY | | | | + + + + + XR Knee Right 1 - 2 Vw (12/19/2017 2:16 PM PDT) + + | Specimen | + + | | + + + + + | Narrative | Performed At | + + + | EXAM:XR KNEE RIGHT 1 - 2 VW CLINICAL HISTORY: right total knee | [facility] | | replacement COMPARISON: Preoperative study 11/08/2017. | | | FINDINGS: Total knee arthroplasty components are now in place. There | | | is no evidence for a component related complication. There are | | | expected operative changes in the soft tissues. IMPRESSION - | | | No radiographic evidence for an immediate complication. Dictated | | | and Signed by: Jeronimo Marr MD Electronically signed: 12/19/2017 | | | 2:29 PM | | + + + + + | Procedure Note | + + | Luis, Reggie Results In - 12/19/2017 2:32 PM PDT EXAM:XR KNEE RIGHT 1 - 2 VW | | | | CLINICAL HISTORY: right total knee replacement | | | | COMPARISON: Preoperative study 11/08/2017. | | | | FINDINGS: Total knee arthroplasty components are now in place. There is no | | evidence for a component related complication. There are expected operative | | changes in the soft tissues. | | | | IMPRESSION - | | | | No radiographic evidence for an immediate complication. | | | | Dictated and Signed by: Jeronimo Marr MD | | Electronically signed: 12/19/2017 2:29 PM | + + + +---------+ + + | Performing | Address | City/State/Zipcode | Phone Number | | Organization | | | | + +---------+ + + | [facility] | | | | + +---------+ + + documented in this encounter Visit Diagnoses + + | Diagnosis | + + | Primary osteoarthritis of right knee Primary localized osteoarthrosis, lower leg | + + documented in this encounter Administered Medications + +--------+ +--------+------+------+ | Medication Order | MAR | Action | Dose | Rate | Site | | | Action | Date | | | | + +--------+ +--------+------+------+ | acetaminophen (TYLENOL) tablet | Given | 12/20/19 | 650 mg | | | | 650 mg 650 mg, Oral, ONCE, Mon | | 18 10:28 | | | | | 12/19/17 at 1030, For 1 dose, | | AM PDT | | | | | Pre-op | | | | | | + +--------+ +--------+------+------+ +---+---+ | | | +---+---+ + +-------+ +--------+---+---+ | aspirin EC tablet 325 mg 325 | Given | 12/23/19 | 325 mg | | | | mg, Oral, DAILY, First dose on | | 18 9:54 | | | | | 12/20/17 at 0700, Do not cut | | AM PDT | | | | | or crush Give first dose within | | | | | | | 20 hours of surgery end time. | | | | | | | Nursing/Pharmacy to retime first | | | | | | | dose to 1900 for surgeries ending | | | | | | | between 2200 and 0900., | | | | | | | Post-op/Phase II | | | | | | + +-------+ +--------+---+---+ +-------+ +--------+---+---+ | Given | 12/22/19 | 325 mg | | | | | 18 8:00 | | | | | | AM PDT | | | | +-------+ +--------+---+---+ | Given | 12/21/19 | 325 mg | | | | | 18 6:58 | | | | | | AM PDT | | | | +-------+ +--------+---+---+ +---+---+ | | | +---+---+ + +---------+ +-----+ +---+ | ceFAZolin (ANCEF, KEFZOL) 100 | New Bag | 12/21/19 | 1 g | 20 mL/hr | | | mg/mL IV syringe 1 g 1 g, | | 18 6:59 | | | | | Intravenous, Administer over 30 | | AM PDT | | | | | Minutes, EVERY 6 HOURS INTERVAL, | | | | | | | First dose on Tue12/19/17 at | | | | | | | 1800, For 3 doses, Start 8 hours | | | | | | | after previous dose. Last dose | | | | | | | to be given within 24 hours of | | | | | | | surgery end time., Post-op/Phase | | | | | | | II, Indications: Surgical | | | | | | | Prophylaxis | | | | | | + +---------+ +-----+ +---+ +---------+ +-----+ +---+ | New Bag | 12/21/19 | 1 g | 20 mL/hr | | | | 18 1:06 | | | | | | AM PDT | | | | +---------+ +-----+ +---+ | New Bag | 12/20/19 | 1 g | 20 mL/hr | | | | 18 5:59 | | | | | | PM PDT | | | | +---------+ +-----+ +---+ +---+---+ | | | +---+---+ + +-------+ +--------+---+---+ | celecoxib (CELEBREX) capsule | Given | 12/23/19 | 100 mg | | | | 100 mg 100 mg, Oral, 2 TIMES | | 18 9:53 | | | | | DAILY, First dose on 12/19/17 | | AM PDT | | | | | at 2100, For 6 doses, If urine | | | | | | | output is less than 240ml/8 hours | | | | | | | (30ml/hr) or if signs of | | | | | | | bleeding, contact MD and hold., | | | | | | | Post-op/Phase II | | | | | | + +-------+ +--------+---+---+ +-------+ +--------+---+---+ | Given | 12/22/19 | 100 mg | | | | | 18 8:47 | | | | | | PM PDT | | | | +-------+ +--------+---+---+ | Given | 12/22/19 | 100 mg | | | | | 18 8:00 | | | | | | AM PDT | | | | +-------+ +--------+---+---+ + +---+ | | | + +---+ | diphenhydrAMINE (BENADRYL) 12.5 | | | mg/5 mL liquid 25 mg 25 mg, | | | Oral, EVERY 4 HOURS PRN, Itching, | | | Starting 12/19/17 at 1511, | | | Oral route is preferred., | | | Post-op/Phase II | | + +---+ | | | + +---+ | diphenhydrAMINE (BENADRYL) | | | injection 12.5 mg 12.5 mg, | | | Intravenous, EVERY 4 HOURS PRN, | | | Itching, Starting 12/19/17 at | | | 1511, Oral route is preferred., | | | Post-op/Phase II | | + +---+ | | | + +---+ | diphenhydrAMINE (BENADRYL) | | | tablet 25 mg 25 mg, Oral, EVERY | | | 4 HOURS PRN, Itching, Starting | | | 12/19/17 at 1511, Oral route | | | is preferred., Post-op/Phase II | | + +---+ | | | + +---+ + +-------+ +--------+---+---+ | gabapentin (NEURONTIN) capsule | Given | 12/20/19 | 300 mg | | | | 300 mg 300 mg, Oral, ONCE, Tue | | 18 10:28 | | | | | 12/19/17 at 1030, For 1 dose, | | AM PDT | | | | | Pre-op | | | | | | + +-------+ +--------+---+---+ +---+---+ | | | +---+---+ + +---------+ +---+-------+---+ | lactated ringers (LR) infusion | New Bag | 12/20/19 | | 100 | | | at 10-100 mL/hr, Intravenous, | | 18 10:28 | | mL/hr | | | CONTINUOUS, Starting 12/19/17 | | AM PDT | | | | | at 1030, TKO. Use unless patient | | | | | | | is on dialysis., Pre-op | | | | | | + +---------+ +---+-------+---+ +---+---+ | | | +---+---+ + + + +---+ +---+ | lactated ringers (LR) infusion | Rate/Dos | 12/20/19 | | 50 mL/hr | | | at 100 mL/hr, Intravenous, | e Change | 18 7:33 | | | | | CONTINUOUS, Starting 12/19/17 | | PM PDT | | | | | at 1530, Post-op/Phase II | | | | | | + + + +---+ +---+ +---------+ +---+-------+---+ | New Bag | 12/20/19 | | 100 | | | | 18 3:25 | | mL/hr | | | | PM PDT | | | | +---------+ +---+-------+---+ +---+---+ | | | +---+---+ + +-------+ +-------+---+---+ | metoclopramide (REGLAN) 5 mg/mL | Given | 12/22/19 | 10 mg | | | | injection 10 mg 10 mg, | | 18 8:00 | | | | | Intravenous, EVERY 4 HOURS PRN, | | AM PDT | | | | | Nausea, Vomiting, Starting Mon | | | | | | | 12/19/17 at 1511, Use if | | | | | | | ondansetron and prochlorperazine | | | | | | | ineffective after 30 minutes or | | | | | | | not ordered Use PO option unless | | | | | | | NPO status or unable to tolerate | | | | | | | Protect from light., | | | | | | | Post-op/Phase II | | | | | | + +-------+ +-------+---+---+ +---+---+ | | | +---+---+ + +-------+ +------+---+---+ | ondansetron (ZOFRAN ODT) | Given | 12/20/19 | 8 mg | | | | disintegrating tablet 8 mg 8 mg, | | 18 10:28 | | | | | Oral, ONCE, 12/19/17 at 1030, | | AM PDT | | | | | For 1 dose, Pre-op | | | | | | + +-------+ +------+---+---+ +---+---+ | | | +---+---+ + +-------+ +------+---+---+ | ondansetron (ZOFRAN) injection | Given | 12/22/19 | 4 mg | | | | 4 mg 4 mg, Intravenous, EVERY 6 | | 18 5:21 | | | | | HOURS PRN, Nausea, Vomiting, | | AM PDT | | | | | Starting 12/19/17 at 1511, | | | | | | | First line agent Use PO option | | | | | | | unless NPO status or unable to | | | | | | | tolerate, Post-op/Phase II | | | | | | + +-------+ +------+---+---+ +---+---+ | | | +---+---+ + +-------+ +------+---+---+ | oxyCODONE (ROXICODONE) tablet | Given | 12/23/19 | 5 mg | | | | 5-20 mg 5-20 mg, Oral, EVERY 3 | | 18 2:39 | | | | | HOURS PRN, Pain, Starting Mon | | PM PDT | | | | | 12/19/17 at 1511, First dose must | | | | | | | be the lowest dose, can titrate | | | | | | | to effective dose by repeat of | | | | | | | lowest dose every 60 minutes prn | | | | | | | pain, may not exceed maximum dose | | | | | | | ordered per interval. Use Pasero | | | | | | | Sedation Scale., Post-op/Phase | | | | | | | II | | | | | | + +-------+ +------+---+---+ +-------+ +------+---+---+ | Given | 12/23/19 | 5 mg | | | | | 18 5:46 | | | | | | AM PDT | | | | +-------+ +------+---+---+ | Given | 12/23/19 | 5 mg | | | | | 18 12:29 | | | | | | AM PDT | | | | +-------+ +------+---+---+ +---+---+ | | | +---+---+ documented in this encounter
--- OUTSIDE RECORDS SUMMARY | ~2020-01-09 | XMS | Encounter Summary ---
Demographics + + + | Address | [address] | | | [place] [address] | + + + | Home Phone | | + + + | Preferred Language | Unknown | + + + | Marital Status | Single | + + + | Caodaism Affiliation | [id number] | + + + [...] [place] | | | | | [id number] | | + + + + + | [place] | ECON | Unknown | | + + + + + Care Team Providers + +------+ + | Care Over[employer]uler [employer] Name | Role | Phone | + +------+ + | Shubham Maurer MD | PCP | | + +------+ + Reason for Visit +---------+ + | Reason | Comments | +---------+ + | Post Op | right total knee arthroplasty DOS 12/19/17 | +---------+ + Encounter Details +--------+---------+ + + + | Date | Type | Department | Care Team | Description | +--------+---------+ + + + | 01/24/ | Office | [facility] | Damian Escobedo | Status post right | | 2018 | Visit | ORTHOPEDIC SURGERY | [address] | knee replacement | | | | [address] [place] | [address] | (Primary Dx) | | | | [place], [place] | [place] [address] | | | | | [address] | [phone] | | | | | [phone] | | | +--------+---------+ + + + [...] | 78.8 kg (173 lb 11.6 | 01/24/2018 1:46 PM | | | | oz) | PDT | | + + + + + | Height | 171.5 cm (5' 7.5") | 01/24/2018 1:46 PM | | | | | PDT | | + + + + + | Body Mass Index | 26.81 | 01/24/2018 1:46 PM | | | | | PDT | | + + + + + documented in this encounter Progress Notes Damian Escobedo PA-C - 01/24/2018 1:45 PM PDTFormatting of this note might be differe nt from the original. Name:Raúl Day Today Date: 01/25/2018 Age: 67 y.o. PCP: Shubham Maurer MD Chief Complaint Patient presents with Post Op right total knee arthroplasty DOS 12/19/17 SUBJECTIVE: Second postoperative visit for right total knee arthroplasty performed on 12/19/17. Continu es outpatient physical therapy and [place]. Physical range of motion is improving. Only using pain medication as prescribed necessary. Usually just uses Tylenol for pain control. He has been full weightbearing. No injuries since surgery. OBJECTIVE: Incision site at the right anterior knees healing appropriately and quite well. There is 7 0, location or infection. skin is warm and dry. active range of motion today is approximat john 5 110 degrees. the right knee remains mild swollen compared bilaterally. warm with p alpation. there is no evidence of any convocation or infection. he was without assistance. he is full weightbearing on the right knee Imaging/Studies: Xr Knee Right 1 - 2 Vw Result Date: 01/24/2018 XR KNEE RIGHT 1 - 2 VW 01/24/2018 1:26 PM HISTORY: S/P RIGHT TOTAL KNEE ARTHROPLASTY dos . COMPARISON: 12/19/2017 FINDINGS: There is hardware for right knee arthroplasty that is intact with no evidence for loosening. Bone mineralization is normal. There is no significa nt joint effusion. Decreasing mild soft tissue swelling throughout the right anterior knee s oft tissues. IMPRESSION - Intact right knee arthroplasty. Dictated and Signed by: Dewey gordillo MD Electronically signed: 01/24/2018 2:03 PM Vitals: 01/24/18 1346 Weight: 78.8 kg (173 lb 11.6 oz) Height: 1.715 m (5' 7.5") ASSESSMENT/PLAN: 1. Right total knee arthroplasty, status postop A. patient is healing appropriately and quite well from right total knee arthroplasty perf ormed just 6 weeks ago. These outpatient physical therapy. Encouraged physical therapy at home upon his own accord daily. Continue with pain medication as prescribed necessary. Fol low-up in about 6 weeks for reexamination. Review of plain film imaging studies obtained to day reveals no evidence of hardware complication or loosening. B. Patient is advised that if they have any questions, comments or concerns to contact our office. Electronically signed by: Damian Escobedo PA-C 01/25/2018 7:24 This note was dictated using the [employer] voice recognition system. Minor errors in grammar may have occurred. documented in t his encounter Plan of Treatment +--------+---------+ + + + | Date | Type | Specialty | Care Team | Description | +--------+---------+ + + + | 01/24/ | Office | Cardiology | Christiano Frost, | | | 2019 | Visit | | MD [address] | | | | | | [place], | | | | | | [place] [address] | | | | | | [phone] | | | | | | | | +--------+---------+ + + + documented as of this encounter Visit Diagnoses + + | Diagnosis | + + | Status post right knee replacement - Primary | + + documented in this encounter
--- OUTSIDE RECORDS SUMMARY | ~2020-01-09 | XMS | Encounter Summary ---
Demographics + + + | Address | [address] | | | [place] [address] | + + + | Home Phone | | + + + | Preferred Language | Unknown | + + + | Marital Status | Single | + + + | Yarsanism Affiliation | 1077 | + + + | Race | White | + + + | Ethnic Group | Not or | + + + Author + + + | Author | [facility] | | | and [place] | + + + | Organization | [facility] | | | and [...] [place] | | | | | [address] | | + + + + + | Santo Cervantes | ECON | Unknown | | + + + + + Care Team Providers + +------+ + | Care Admissions Director Name | Role | Phone | + +------+ + | Shubham Maurer MD | PCP | | + +------+ + Reason for Referral Diagnostic/Screening (Routine) +--------+--------+ + + + + | Status | Reason | Specialty | Diagnoses / | Referred By | Referred To | | | | | Procedures | Contact | Contact | +--------+--------+ + + + + | Closed | | Radiology | Diagnoses | [place], | [address] | | | | | Spinal | Jovan | [address] | | | | | stenosis, | BECCA Mejia | [place], | | | | | lumbar | [address] | [place] [address] | | | | | Lumbar | AVE | Phone: | | | | | radiculopath | [place] | [phone] | | | | | y S/P | [address] | Fax: | | | | | lumbar | Phone: | [phone] | | | | | fusion DDD | [phone] | | | | | | (degenerativ | Fax: | | | | | | e disc | [phone] | | | | | | disease), | | | | | | | lumbar | | | | | | | Osteoarthrit | | | | | | | is of spine | | | | | | | with | | | | | | | radiculopath | | | | | | | y, lumbar | | | | | | | region | | | | | | | Neurogenic | | | | | | | claudication | | | | | | | Procedures | | | | | | | CT Lumbar | | | | | | | Spine wo | | | | | | | Contrast | | | +--------+--------+ + + + + Reason for Visit + + + | Reason | Comments | + + + | Follow-up | | + + + Encounter Details +--------+---------+ + + + | Date | Type | Department | Care Team | Description | +--------+---------+ + + + | 11/12/ | Office | [facility] | Jovan Alford | Spinal stenosis, | | 2016 | Visit | NEUROSURGERY [address] | [address] | lumbar (Primary Dx); | | | | [address] [place], [place] | Lumbar | | | | [place] | [address] | radiculopathy; S/P | | | | [address] | | lumbar fusion; DDD | | | | [phone] | | (degenerative disc | | | | | | disease), lumbar; | | | | | | Osteoarthritis of | | | | | | spine with | | | | | | radiculopathy, | | | | | | lumbar region; | | | | | | Neurogenic | | | | | | claudication | +--------+---------+ + + + Social History [...] + + + | Blood Pressure | 106/64 | 11/13/2015 1:58 PM | | | | | PDT | | + + + + + | Pulse | 65 | 11/13/2015 1:58 PM | | | | | PDT | | + + + + + | Temperature | - | - | | + + + + + | Respiratory Rate | 17 | 11/13/2015 1:58 PM | | | | | PDT | | + + + + + | Oxygen Saturation | - | - | | + + + + + | Inhaled Oxygen | - | - | | | Concentration | | | | + + + + + | Weight | 80.8 kg (178 lb 3.2 | 11/13/2015 1:58 PM | | | | oz) | PDT | | + + + + + | Height | 172.7 cm (5' 8") | 11/13/2015 1:58 PM | | | | | PDT | | + + + + + | Body Mass Index | 27.1 | 11/13/2015 1:58 PM | | | | | PDT | | + + + + + documented in this encounter Patient Instructions Patient Instructions Jovan Alford PA-C - 11/13/2015 2:47 PM PDTToday we decided t o obtain a CT scan of your lumbar spine. After we have completed your evaluation and would like you to return to the office to review the results and make further recommendationsElect ronically signed by Jovan Alford PA-C at 11/13/2015 2:47 PM PDT documented in this encounter Progress Notes Jovan Alford PA-C - 11/13/2015 2:47 PM PDTFormatting of this note might be differ ent from the original. .. Jovan Alford PA-C [address] [place] [address] FAX: NEUROSURGERY FOLLOW-UP CHIEF COMPLAINT: Chief Complaint Patient presents with Follow-up HISTORY OF PRESENT ILLNESS: The patient is a 65 y.o. male that had a lumbar fusion around 6 months ago. Patient is here to follow-up on an MRI of his lumbar spine. Patient had pre vious L3-S1 lumbar fusion. The patient had been doing fairly well. Unfortunately around y or August of this year or so he is had increasing weakness and some numbness in his feet michael or to surgery he had right-sided weakness. This resolved after surgery. He notices both of his feet flap with walking. He notices numbness in the top of his right foot. He has been seen by his primary care provider been asked to be seen here for follow-up because of his w orsening symptoms CURRENT MEDICATIONS: Current Outpatient Prescriptions Medication Sig Dispense Refill diclofenac (VOLTAREN) 75 mg EC tablet Take 75 mg by mouth 2 times daily. mometasone (ELOCON) 0.1 % cream Apply 1 Application topically Daily. Gilbert-3 Fatty Acids (OMEGA 3 PO) Take 2 capsules by mouth 2 times daily. No current facility-administered medications for this visit. ALLERGIES: No Known Allergies SOCIAL HISTORY: The patient reports that he has never smoked. He has never used smokeless tobacco. He repo rts that he drinks alcohol. He reports that he does not use illicit drugs. INTERIM PHYSICAL EXAMINATION: Blood pressure 106/64, pulse 65, resp. rate 17, height 1.727 m (5' 8"), weight 80.831 kg (1 78 lb 3.2 oz). Body mass index is 27.1 kg/(m^2). GENERAL: Raúl Day is in no acute distress with unlabored respirations. SPINE: The patient s incisions are healing well without drainage, significant erythema, o r discharge. EXTREMITIES: No lower extremity edema. NEUROLOGICAL EXAMINATION: MENTAL STATUS: The patient is awake, alert, and oriented. He follows simple and complex commands MOTOR EXAM: Motor strength is 4-/5 left dorsiflexion and EHL.4/5 dorsiflexion and EHL on ri ght side. Both of these are significant change from his last evaluation in our office.. Th e left side his symptoms are new and were not present prior to his previous surgery SENSORY EXAM: The sensory examination is Abnormal showing anterior foot numbness on the rig ht side MRI of the patient's lumbar spine shows progressive disease at L1-2 and L2-3 with central s jean stenosis ranging from moderate to moderately severe ASSESSMENT: Encounter Diagnoses Name Primary? Spinal stenosis, lumbar Yes Lumbar radiculopathy S/P lumbar fusion DDD (degenerative disc disease), lumbar Osteoarthritis of spine with radiculopathy, lumbar region Neurogenic claudication Past Medical History Diagnosis Date Hernia cerebri (HCC) Degenerative disc disease, lumbar Hard of hearing bilateral hearing aids PLAN: I would like the patient to have a CT scan of his lumbar spine. All of this was discussed with him and a friend with him today I would like him to follow-up with after his MRI to review the results and make further recommendations Today I spent greater than 25 minutes with the patient in consultation. A majority of this time was spent in education and counseling of the patient and reviewing his images and janet rds. He had multiple questions today ELECTRONICALLY SIGNED BY: Jovan Alford PA-C, 11/13/2015 14:47 documented in this encounter Plan of Treatment +--------+---------+ + + + | Date | Type | Specialty | Care Team | Description | +--------+---------+ + + + | 01/24/ | Office | Cardiology | Christiano Frost, | | | 2019 | Visit | | MD [address] | | | | | | [place], | | | | | | [place] [address] | | | | | | [phone] | | | | | | | | +--------+---------+ + + + + +---------+--------+ + + | Name | Type | Priori | Associated Diagnoses | Order Schedule | | | | ty | | | + +---------+--------+ + + | CT Lumbar Spine wo | Imaging | Routin | Spinal stenosis, | Expected: | | Contrast | | e | lumbar Lumbar | 11/13/2015, Expires: | | | | | radiculopathy S/P | 11/12/2016 | | | | | lumbar fusion DDD | | | | | | (degenerative disc | | | | | | disease), lumbar | | | | | | Osteoarthritis of | | | | | | spine with | | | | | | radiculopathy, | | | | | | lumbar region | | | | | | Neurogenic | | | | | | claudication | | + +---------+--------+ + + documented as of this encounter Procedures + +--------+ + + + | Procedure Name | Priori | Date/Time | Associated Diagnosis | Comments | | | ty | | | | + +--------+ + + + | IMAGING REPORT - | | 12/15/2015 | | Results for this | | EXTERNAL SCAN | | 12:00 AM | | procedure are in the | | | | PDT | | results section. | + +--------+ + + + documented in this encounter Results IMAGING REPORT - EXTERNAL SCAN (12/15/2015 12:00 AM PDT) + + + | Narrative | Performed At | + + + | Ordered by an | | | unspecified provider. | | + + + documented in this encounter Visit Diagnoses + + | Diagnosis | + + | Spinal stenosis, lumbar - Primary Spinal stenosis, lumbar region, without neurogenic | | claudication | + + | Lumbar radiculopathy Thoracic or lumbosacral neuritis or radiculitis, unspecified | + + | S/P lumbar fusion Arthrodesis status | + + | DDD (degenerative disc disease), lumbar Degeneration of lumbar or lumbosacral | | intervertebral disc | + + | Osteoarthritis of spine with radiculopathy, lumbar region | + + | Neurogenic claudication Spinal stenosis, lumbar region, with neurogenic claudication | + + documented in this encounter
--- OUTSIDE RECORDS SUMMARY | ~2020-01-09 | XMS | Encounter Summary ---
Demographics + + + | Address | [address] | | | [place] [address] | + + + | Home Phone | | + + + | Preferred Language | Unknown | + + + | Marital Status | Single | + + + | Mormonism Affiliation | 1077 | + + + | Race | White | + + + | Ethnic Group | Not or | + + + Author + + + | Author | [facility] | | | and [place] | + + + | Organization | [facility] | | | [...] [place] | | | | | [address] | | + + + + + | Santo Cervantes | ECON | Unknown | | + + + + + Care Team Providers + +------+ + | Care Spring Repairer Helper Hand Name | Role | Phone | + +------+ + | Shubham Maurer MD | PCP | | + +------+ + Reason for Visit + +--------+ + | Reason | Onset | Comments | | | Date | | + +--------+ + | Appointment | 12/20/ | | | | 2017 | | + +--------+ + Encounter Details +--------+ + + + + | Date | Type | Department | Care Team | Description | +--------+ + + + + | 12/20/ | Telephone | [facility] | Damian Escobedo | Appointment | | 2017 | | ORTHOPEDIC SURGERY | [address] | | | | | [address] | [facility] | | | | | [place], [place] | [place] [address] | | | | | [address] | [phone] | | | | | [phone] | | | +--------+ + + + [...] + + documented as of this encounter Miscellaneous Notes Telephone Encounter - Jes Butler CMA - 12/21/2017 8:10 AM PDTOk to check in 1/2 hour [place] akins. eleSamira Her - 12/20/2017 11:32 AM PDTPatient wanted to know if it is ok to check in early on 01/03/18 for his staple removal. He would like to check in a little early. Carey porras documented in th is encounter Plan of Treatment +--------+---------+ + + + | Date | Type | Specialty | Care Team | Description | +--------+---------+ + + + | 01/24/ | Office | Cardiology | Christiano Frost, | | | 2019 | Visit | | MD [address] | | | | | | [place], | | | | | | [place] [address] | | | | | | [phone] | | | | | | | | +--------+---------+ + + + documented as of this encounter Visit Diagnoses Not on filedocumented in this encounter"
--- OUTSIDE RECORDS SUMMARY | ~2020-01-09 | XMS | Encounter Summary ---
Demographics + + + | Address | [address] | | | [place] [address] | + + + | Home Phone | | + + + | Preferred Language | Unknown | + + + | Marital Status | Single | + + + | Sabianist Affiliation | 1077 | + + + | Race | White | + + + | Ethnic Group | Not or | + + + Author + + + | Author | [facility] | | | and [place] | + + + | Organization | [facility] | | [...] [place] | | | | | [address] | | + + + + + | Santo Cervantes | ECON | Unknown | | + + + + + Care Team Providers + +------+ + | Care Lead Cargoman Name | Role | Phone | + +------+ + | Shubham Maurer MD | PCP | | + +------+ + Encounter Details +--------+ + + + + | Date | Type | Department | Care Team | Description | +--------+ + + + + | 03/04/ | Orders Only | [facility] [place] | Min Tello MD | Neck pain, acute | | 2015 | | NEUROSURGERY [address] | [address] | (Primary Dx); Other | | | | [address] | [place] [address] | osteoarthritis of | | | | [place] | [phone] | spine, cervical | | | | [address] | | region | | | | [phone] | | | +--------+ + + + [...] | | | | | | [place] [address] | | | | | | [phone] | | | | | | | | +--------+---------+ + + + documented as of this encounter Visit Diagnoses + + | Diagnosis | + + | Neck pain, acute - Primary Cervicalgia | + + | Other osteoarthritis of spine, cervical region | + + documented in this encounter"
--- OUTSIDE RECORDS SUMMARY | ~2020-01-09 | XMS | Encounter Summary ---
Demographics + + + | Address | [address] | | | [place] [address] | + + + | Home Phone | | + + + | Preferred Language | Unknown | + + + | Marital Status | Single | + + + | Christian Affiliation | 1077 | + + + | Race | White | + + + | Ethnic Group | Not or | + + + Author + + + | Author | [facility] | | | and [place] | + + + | Organization | [facility] | | [...] [place] | | | | | [address] | | + + + + + | Santo Cervantes | ECON | Unknown | | + + + + + Care Team Providers + +------+ + | Care Dust Mill Operator Name | Role | Phone | + +------+ + | Shubham Maurer MD | PCP | | + +------+ + Encounter Details +--------+ + + + + | Date | Type | Department | Care Team | Description | +--------+ + + + + | 12/13/ | Episode | [facility] [place] | Elsa Delaney, | | | 2017 | Changes | ORTHOPEDIC SURGERY | Computer Installation Engineer | | | | | [address] | | | | | | [place] | | | | | | [address] | | | | | | [phone] | | | +--------+ + + + [...] | | | | | | [place] [address] | | | | | | [phone] | | | | | | | | +--------+---------+ + + + documented as of this encounter Visit Diagnoses Not on filedocumented in this encounter"
--- OUTSIDE RECORDS SUMMARY | ~2020-01-09 | XMS | Encounter Summary ---
Demographics + + + | Address | [address] | | | [place] [address] | + + + | Home Phone | | + + + | Preferred Language | Unknown | + + + | Marital Status | Single | + + + | Samaritan Affiliation | 1077 | + + + | Race | White | + + + | Ethnic Group | Not or | + + + Author + + + | Author | [facility] | | | and [place] | + + + | Organization | [facility] | | | [...] [place] | | | | | [address] | | + + + + + | Santo Cervantes | ECON | Unknown | | + + + + + Care Team Providers + +------+ + | Care Drop Forge Operator Name | Role | Phone | [...] | Physical | Diagnoses | [place], | [facility] | | | Services | Therapy | Status post | [place] | [facility] | | | Required | | right knee | [address] | PHYSICAL | | | | | replacement | [address] | THERAPY [address] | | | | | Right knee | [address] | [address] | | | | | pain, | [place] | [place], [place] | | | | | unspecified | [address] | [address] | | | | | chronicity | Phone: | Phone: | | | | | | [phone] | [phone] | | | | | | Fax: | Fax: | | | | | | [phone] | [phone] | +--------+ + + + + + Encounter Details +--------+ + + + + | Date | Type | Department | Care Team | Description | +--------+ + + + + | 01/10/ | Orders Only | [facility] | Damian Escobedo | Status post right | | 2018 | | ORTHOPEDIC SURGERY | [address] | knee replacement | | | | [address] | [place] | (Primary Dx); Right | | | | [place] | [place] [address] | knee pain, | | | | [address] | [phone] | unspecified | | | | [phone] | | chronicity | +--------+ + + + + Social [...] | | | | | | [place] [address] | | | | | | [phone] | | | | | | | | +--------+---------+ + + + + + +--------+ + + | Name | Type | Priori | Associated Diagnoses | Order Schedule | | | | ty | | | + + +--------+ + + | Physical Therapy - | Outpatient | Routin | Status post right | Ordered: 01/10/2018 | | Ambulatory Referral | Referral | e | knee replacement | | | | | | Right knee pain, | | | | | | unspecified | | | | | | chronicity | | + + +--------+ + + documented as of this encounter Visit Diagnoses + + | Diagnosis | + + | Status post right knee replacement - Primary | + + | Right knee pain, unspecified chronicity | + + documented in this encounter"
--- OUTSIDE RECORDS SUMMARY | ~2020-01-09 | XMS | Encounter Summary ---
Demographics + + + | Address | [address] | | | [place] [address] | + + + | Home Phone | | + + + | Preferred Language | Unknown | + + + | Marital Status | Single | + + + | Pentecostal Affiliation | 1077 | + + + | Race | White | + + + | Ethnic Group | Not or | + + + Author + + + | Author | [facility] | | | and [place] | + + + | Organization | [facility] | | | and [...] [place] | | | | | [address] | | + + + + + | Santo Cervantes | ECON | Unknown | | + + + + + Care Team Providers + +------+ + | Care Automatic Dispenser Mechanic Name | Role | Phone | + +------+ + | Shubham Maurer MD | PCP | | + +------+ + Reason for Visit +--------+ + | Reason | Comments | +--------+ + | Other | 30 event monitor | +--------+ + Evaluate & Treat (Routine) +--------+--------+ + + + + | Status | Reason | Specialty | Diagnoses / | Referred By | Referred To | | | | | Procedures | Contact | Contact | +--------+--------+ + + + + | Closed | | Cardiology | Diagnoses | Jose [address] | | | | | 30 day | Christiano Glass, | Cardiology | | | | | Procedures | MD [address] | [place] | | | | | CR EVENT | [address] | [address] | | | | | MONITOR | [place] [address] | [address] | | | | | | [place] | [address] | | | | | | [address] | [place] | | | | | | Phone: | [address] | | | | | | [phone] | Phone: | | | | | | Fax: | [phone] | | | | | | [phone] | Fax: | | | | | | | [phone] | +--------+--------+ + + + + Encounter Details +--------+ + + + + | Date | Type | Department | Care Team | Description | +--------+ + + + + | 10/22/ | Procedure | [facility] | Christiano Frost, | Atrial flutter, | | 2020 | visit | CARDIOLOGY [place] | MD [address] | unspecified type | | | | [address] | [place] [address] [place] ([facility]) | | | | [address] [place] | [place] [address] | | | | | [address] | [phone] | | | | | [phone] | | | +--------+ + + + [...] Comments | + + +---------+ + | Not Currently | 0 Standard drinks | 0.0 | [...] + + + + | Temperature | 36.3 C (97.3 F) | 10/23/2019 1:36 PM | | | | | PDT [...] + + + + | Weight | - | - | | + + + + + | Height | - | - | | + + + + + | Body Mass Index | - | - | | + + + + + documented in this encounter Progress Notes Shelli Crump CMA - 10/23/2019 1:45 PM PDT30 day cardiac event monitor placed on patie nt. EOB/Billing information discussed. Instructions given and understood.Electronically sign ed by Shelli Crump CMA at 10/23/2019 2:30 PM PDTdocumented in this encounter Plan of Treatment +--------+---------+ + + + | Date | Type | Specialty | Care Team | Description | +--------+---------+ + + + | 01/24/ | Office | Cardiology | Christiano Frost, | | | 2019 | Visit | | MD [address] | | | | | | [place] | | | | | | [place] [address] | | | | | | [phone] | | | | | | | | +--------+---------+ + + + documented as of this encounter Visit Diagnoses + + | Diagnosis | + + | Atrial flutter, unspecified type (HCC) | + + documented in this encounter"
--- OUTSIDE RECORDS SUMMARY | ~2020-01-09 | XMS | Encounter Summary ---
Demographics + + + | Address | [address] | | | [place] [address] | + + + | Home Phone | | + + + | Preferred Language | Unknown | + + + | Marital Status | Single | + + + | Jehovah'S Witness Affiliation | 1077 | + + + | Race | White | + + + | Ethnic Group | Not or | + + + Author + + + | Author | [facility] | | | and [place] | + + + | Organization | [facility] | | [...] [place] | | | | | [address] | | + + + + + | Santo Cervantes | ECON | Unknown | | + + + + + Care Team Providers + +------+ + | Care Drug Regulatory Affairs Specialist Name | Role | Phone | + [...] 2017 | Changes | ORTHOPEDIC SURGERY | Print Line Tailer | | | | | [address] | | | | | | [place] | | | | | | [address] | | | | | | [phone] | | | +--------+ + + + [...] | | | | | | [place] [address] | | | | | | [phone] | | | | | | | | +--------+---------+ + + + documented as of this encounter Visit Diagnoses Not on filedocumented in this encounter"
--- OUTSIDE RECORDS SUMMARY | ~2020-01-09 | XMS | Encounter Summary ---
Demographics + + + | Address | [address] | | | [place] [address] | + + + | Home Phone | | + + + | Preferred Language | Unknown | + + + | Marital Status | Single | + + + | Spiritism Affiliation | 1077 | + + + | Race | White | + + + | Ethnic Group | Not or | + + + Author + + + | Author | [facility] | | | and [place] | + + + | Organization | [facility] | | | and [...] [place] | | | | | [address] | | + + + + + | Santo Cervantes | ECON | Unknown | | + + + + + Care Team Providers + +------+ + | Care Email Operations Manager Name | Role | Phone | + +------+ + | Shubham Maurer MD | PCP | | + +------+ + Encounter Details +--------+ + + + + | Date | Type | Department | Care Team | Description | +--------+ + + + + | 01/24/ | Hospital | [facility] | Damian Escobedo | Status post right | | 2018 | Encounter | [facility] [address] [facility] | [address] | knee replacement; | | | | [address] | [address] | Right knee pain, | | | | [place], [place] | [place] [address] | unspecified | | | | [address] | [phone] | chronicity | | | | [phone] | | | +--------+ + + + [...] | 01/24/ | Office | Cardiology | Margot, Christiano M, | | | 2020 | Visit | | MD [address] | | | | | | [place], | | | | | | [place] [address] | | | | | | [phone] | | | | | | | [...]
--- OUTSIDE RECORDS SUMMARY | ~2020-01-09 | XMS | Encounter Summary ---
Demographics + + + | Address | [address] | | | [place] [address] | + + + | Home Phone | | + + + | Preferred Language | Unknown | + + + | Marital Status | Single | + + + | Temple Affiliation | 1077 | + + + | Race | White | + + + | Ethnic Group | Not or | + + + Author + + + | Author | [facility] | | | and [place] | + + + | Organization | [facility] | | | [...] [place] | | | | | [address] | | + + + + + | S[place]ervantes | ECON | Unknown | | + + + + + Care Team Providers + +------+ + | Care Paragliding Instructor Name | Role | Phone | + +------+ + | Shubham Maurer MD | PCP | | + +------+ + Reason for Referral Diagnostic/Screening (Urgent) +--------+--------+ + + + + | Status | Reason | Specialty | Diagnoses / | Referred By | Referred To | | | | | Procedures | Contact | Contact | +--------+--------+ + + + + | Closed | | Radiology | Diagnoses | Min Tello | [facility] | | | | | Neck pain, | MD [address] | [address] | | | | | acute Left | [address] | [place], | | | | | arm pain | [facility], | [place] | | | | | Left arm | [place] [address] | [address] | | | | | numbness | Phone: | Phone: | | | | | Other | [phone] | [phone] | | | | | osteoarthrit | Fax: | Fax: | | | | | is of spine, | [phone] | [phone] | | | | | cervical | | | | | | | region | | | | | | | Procedures | | | | | | | MRI Cervical | | | | | | | Spine wo | | | | | | | Contrast | | | +--------+--------+ + + + + Reason for Visit + + + | Reason | Comments | + + + | Follow-up | Discuss Surgery | + + + Encounter Details +--------+---------+ + + + | Date | Type | Department | Care Team | Description | +--------+---------+ + + + | 02/28/ | Office | [facility] [place] | Min Tello MD | Other secondary | | 2014 | Visit | NEUROSURGERY [address] | [address] | scoliosis, lumbar | | | | [address] | [place] [address] | region (Primary Dx); | | | | [place], [place] | [phone] | Lumbar spinal | | | | [address] | | stenosis; Lumbar | | | | [phone] | | radiculopathy; | | | | | | Foraminal stenosis | | | | | | of lumbar region; | | | | | | Facet arthropathy, | | | | | | lumbar; Degenerative | | | | | | disc disease, | | | | | | lumbar; Neck pain, | | | | | | acute; Left arm | | | | | | pain; Left arm | | | | | | numbness; Other | | | | | | osteoarthritis of | | | | | | spine, cervical | | | | | | region | +--------+---------+ + + + Social History [...] + + + | Blood Pressure | 145/92 | 02/28/2015 9:04 AM | | | | | PST | | + + + + + | Pulse | 64 | 02/28/2015 9:04 AM | | | | | PST | | + + + + + | Temperature | - | - | | + + + + + | Respiratory Rate | 16 | 02/28/2015 9:04 AM | | | | | PST | | + + + + + | Oxygen Saturation | - | - | | + + + + + | Inhaled Oxygen | - | - | | | Concentration | | | | + + + + + | Weight | 78 kg (172 lb) | 02/28/2015 9:04 AM | | | | | PST | | + + + + + | Height | 172.7 cm (5' 8") | 02/28/2015 9:04 AM | | | | | PST | | + + + + + | Body Mass Index | 26.15 | 02/28/2015 9:04 AM | | | | | PST | | + + + + + documented in this encounter Progress Notes Min Tello MD - 02/28/2015 12:57 PM PSTFormatting of this note might be different from leela quinones. Min Tello MD [address] [place] [address], [address] [place] [address] FAX: NEUROSURGERY FOLLOW-UP CHIEF COMPLAINT: Chief Complaint Patient presents with Follow-up Discuss Surgery HISTORY OF PRESENT ILLNESS: The patient is a 64 y.o. male with the complaint of back and l eg pain symptoms that began years prior. In January 2014, things got very severe. He retu rns today still complaining of had severe back and leg pain. The patient describes severe p ain down the right leg to the right foot. His right leg is weak. His pain is very intense if he over does things now. He has 6-9/10 pain. The symptoms have been stable but remain u nimproved. He rates the pain as severe. The symptoms are daily. He describes the pain as aching, num ban, sharp and tingling. His walking distance and leg strength are limited. The patient does not report any change in bowel or bladder function recently. His symptoms improve with walking short distances. His symptoms worsen with moderate exertion. He has tried PT and NSAIDS. He is taking pain medication. He also has intermittent arm numbness and neck pain. PAST MEDICAL HISTORY: Past Medical History Diagnosis Date Hernia cerebri (HCC) Degenerative disc disease, lumbar PAST SURGICAL HISTORY: Past Surgical History Procedure Laterality Date Hernia repair Right 1979 El Vasectomy 1982 CURRENT MEDICATIONS: Current Outpatient Prescriptions Medication Sig Dispense Refill cholecalciferol (VITAMIN D-3) 1,000 units capsule Take 1,000 Units by mouth Daily. AXH-KEK-Pfuqppc E (OMEGA-3 COMPLEX PO) Take 2 capsules by mouth Daily. diclofenac (VOLTAREN) 75 mg EC tablet Take 75 mg by mouth 2 times daily. FERROUS SULFATE PO Take by mouth Daily. [place]-3 Krill Oil 500 MG CAPS Take 1 capsule by mouth Daily. PLANT STEROLS AND STANOLS PO Take by mouth 2 times daily. Red Yeast Rice 600 MG CAPS Take 1 capsule by mouth 2 times daily. TURMERIC PO Take by mouth 2 times daily. No current facility-administered medications for this visit. ALLERGIES: No Known Allergies SOCIAL HISTORY: The patient reports that he has never smoked. He has never used smokeless tobacco. He repo rts that he drinks alcohol. He reports that he does not use illicit drugs. FAMILY HISTORY: Family History Problem Relation Age of Onset Prostate cancer Father Heart disease Mother Stroke Mother Cancer Paternal Grandfather REVIEW OF SYSTEMS GENERALLY: No fever, no night sweats, no anemia, no fatigue, no recent profound weight ch anges. EYES: + eye problems, + use of corrective lenses, no eye injury, no double vision, no blin dness. EARS, NOSE, AND THROAT: No changes in taste or smell, + hearing difficulty, + ringing in t he ears, no ear drainage, no dizziness, no voice changes, no difficulty swallowing, + signif icant snoring, no sleep apnea, no sinus problems, + major dental work. NEUROLOGICALLY: Please see the review of systems discussed above in the history of present illness. In addition, the patient has numbness of arms and legs, muscle aching, and pain i n back. PSYCHIATRIC: + depression, no sleep disorders, + anxiety, no bipolar disorder, no psychoti c episodes. CARDIOVASCULAR: No heart attacks, no heart murmur, no heart fluttering, no chest pain, no ankle swelling. LUNG DISEASE: No shortness of breath, no cough, no tuberculosis, no bloody cough, no asth ma, no emphysema/COPD. GASTROINTESTINAL: No bowel disease, no nausea or vomiting, no rectal bleeding, no constipa tion, no stool incontinence, no liver disease, no gallbladder disease, no abdominal pain, no ulcers. KIDNEY DISEASE: No urinary frequency, no painful or difficult urination, no incontinence. ENDOCRINE: No diabetes, no thyroid disease, no osteopenia or osteoporosis, no breast drain age. SKIN: No breast lumps, no skin changes, no rashes, no itches. HEMATOLOGIC/LYMPHATIC: No enlarged lymph nodes, no easy or unusual bleeding, no personal h istory of cancer. RHEUMATOLOGIC: No joint arthritis, no rheumatoid arthritis. PHYSICAL EXAMINATION: Blood pressure 145/92, pulse 64, resp. rate 16, height 1.727 m (5' 8"), weight 78.019 kg (1 72 lb). Body mass index is 26.16 kg/(m^2). GENERAL: Raúl Day is in no acute distress with unlabored respirations. The p atient does appear uncomfortable throughout the exam today. HEENT: HEAD/FACE: EYES: EARS: NASOPHARNYX: OROPHARNYX: Normocephalic and atraumatic. There are no areas of recent trauma. Normal sclerae without icterus. No drainage or tenderness. Clear without drainage. Clear without erythema. NECK (ANTERIOR): Supple and without palpable masses. CHEST: Clear to ausculation without crackles or wheeze. HEART: Regular rate and rhythm without murmurs. ABDOMEN: Soft, non-tender, non-distended, and without palpable masses. The patient is notob moe. SPINE: There is no tenderness in the midline of the cervical or thoracic spine. There is m ajor palpable deformity of the spine. The lumbar spine shows there is tenderness in the midline of the L4, L5 levels. To palpati on, there is no signficant myofascial tenderness. EXTREMITIES: No cyanosis, clubbing, or edema. Distal pulses are palpable. NEUROLOGICAL EXAM: MENTAL STATUS: The patient is awake, alert, and oriented. He follows simple and complex commands. His speech is fluent, he comprehends speech well, and he repeats well. He has no apparent deficits with short or oysterman memory. CRANIAL NERVES: II: Acuity is intact. Nino are full to confrontation. III, IV, : The pupils are reactive. Extraocular movements are intact. No ptosis is note d. V: Facial sensation is intact and symmetric. VII: Facial movements are symmetric. VIII: Hearing is intact bilaterally. IX, X: The uvula and palate move appropriately. XI: Shrug is equal bilaterally. XII: Tongue protrusion is midline. MOTOR EXAM: (5 IS NORMAL) * Indicates pain limited MUSCLE/ MOVEMENT: RIGHT LEFT Deltoids 5 5 Biceps 5 5 Triceps 5 5 Wrist Flexion 5 5 Wrist Extension 5 5 Median Intrinsics 5 5 Ulnar Intrinsics 5 5 Arts Education Teacher Strength 5 5 Hip Flexion 5 5 Hip Extension 5 5 Knee Flexion 4 5 Knee Extension 5 5 Dorsiflexion 4 5 Extensor Hallicus Longus 4 5 Plantarflexion 5 5 SENSORY EXAM: Sensory exam shows no diminished sensation to light touch or pain throughout the upper and lower extremities. REFLEXES: (2 OR 2+ IS NORMAL) REFLEX: RIGHT LEFT BICEPS 1 1 BRACHIORADIALIS 1 1 TRICEPS 1 1 PATELLAR 1 1 ACHILLES 1 1 CABRAL'S ABSENT ABSENT PLANTAR DOWNGOING DOWNGOING GAIT: Gait is steady. RADIOGRAPHIC REVIEW: The patient's imaging was reviewed in detail with the patient today during the visit. The MRI from 2014 shows severe multilevel lumbar degeneration with central stenosis, foraminal s tenosis, severe DDD, and severe facet arthropathy. He appears to have rightward disc collap se with leftward scoliosis. His worst segments are by far L3-S1. ASSESSMENT: NEUROSURGICAL DIAGNOSES: Encounter Diagnoses Name Primary? Other secondary scoliosis, lumbar region Yes Lumbar spinal stenosis Lumbar radiculopathy Foraminal stenosis of lumbar region Facet arthropathy, lumbar Degenerative disc disease, lumbar Neck pain, acute Left arm pain Left arm numbness Other osteoarthritis of spine, cervical region GENERAL DIAGNOSES: Past Medical History Diagnosis Date Hernia cerebri (HCC) Degenerative disc disease, lumbar PLAN: Raúl Day presented today, and it was a pleasure seeing this patient and asses sing his problems. The patient has radiculopathy and stenosis symptoms with severe degenera tive changes from L1-S1. I had a lengthy discussion with the patient about his options for care including surgical a nd non-surgical options. I recommended he obtain imaging of his lumbar spine with x-rays an d scoliosis series so that I could plan options for him. We did discuss techniques and options for a multilevel fusion. He has the option for a L1- S1 or a more focused surgery from L3-S1. The pros and cons of each were discussed. We discussed the risks, alternatives, and benefits to surgical intervention with Mr. Broussard son in clinic. These risks included but were not limited to , stroke, heart attack, nu mbness, weakness, paralysis, failure of fusion, failure of hardware, subsidence, adjacent se gment degeneration, cerebrospinal fluid leak, bleeding, infection, injury to surrounding tis sues and organs, injury from positioning, injury to the nerves, difficulty with breathing, d ifficulty with swallowing, difficulty with voice change, and need for additional surgery. Surgical options were discussed and the technique to be employed was described in detail to him. All his questions were answered. We discussed that the goal of the surgery is to prevent progression of his disease, but it is not considered a cure. We also discussed that although some patients may obtain 100% sym ptom relief, it is realistic to anticipate that some symptoms will continue postoperatively despite a successful surgery. We also discussed that there is no guarantee that surgery will provide improvement in his c ondition, and indeed may even worsen the symptoms. We also discussed that in the course of the procedure the operative plan may be altered to include more, less, or different levels d epending upon findings in order to provide him with the best possible outcome. I am prescribing a brace before surgery to improve his stability now to support his weak mu scles and to reduce pain by restricting mobility. For multiple (more than 1 level) fusions, I am also prescribing a bone growth stimulator po stoperatively. This is to improve the probability and rate of fusion. He would like to get a cervical MRI and then make a final decision about what he would like to do. He was leaning toward a L3-S1 surgery as discussed and I answered about 30 questio ns he had prepared today for me about the operation. ELECTRONICALLY SIGNED BY: Min Tello MD, 02/28/2015 12:57 documented in this encou nter Plan of Treatment +--------+---------+ + + + | Date | Type | Specialty | Care Team | Description | +--------+---------+ + + + | 01/24/ | Office | Cardiology | Christiano Frost, | | | 2019 | Visit | | [address] | | | | | | [place], | | | | | | [place] [address] | | | | | | [phone] | | | | | | | | +--------+---------+ + + + documented as of this encounter Results MRI Cervical Spine wo Contrast (02/28/2015 3:46 PM PST) + + | Specimen | + + | | + + + + + | Narrative | Performed At | + + + | EXAM: MRI CERVICAL SPINE WO CONTRAST dated 02/28/2015 2:02 PM. | [facility] | | HISTORY: neck and left arm symptoms COMPARISON: None. | [facility] | | TECHNIQUE: Multiplanar multisequence MR imaging of the cervical spine | [facility] | | without contrast. This is performed on a 1.5 Hollie magnet. | - IMAGING | | FINDINGS: There is levoconvex scoliosis in the upper thoracic spine. | | | There is slight retrolisthesis of C6 and C7. Slight | | | anterolisthesis of T1. Diffuse disc desiccation. Mild to moderate | | | disc narrowing at C4-C5 through T1. Modic type I changes in the | | | left half of C7. The cord has normal size and signal throughout its | | | visible course. Limited evaluation of the posterior fossa contents | | | is unremarkable. There is no precervical soft tissue thickening. | | | C2-C3 is unremarkable on the sagittal sequence. The following | | | levels are evaluated in the axial plane: C3-C4: Small posterior | | | disc protrusion. Mild uncinate hypertrophy and facet arthrosis. | | | Mild to moderate right and mild left neural foraminal narrowing. | | | Mild narrowing of the central spinal canal. C4-C5: Posterior disc | | | protrusion. Cord contouring. No cord signal alteration. Facet | | | and uncinate degenerative changes contribute to moderate bilateral | | | neural foraminal narrowing. C5-C6: Posterior disc and osteophyte. | | | Cord contouring. No cord signal alteration. Facet and uncinate | | | degenerative changes. Severe bilateral neural foraminal narrowing. | | | C6-C7: Posterior disc and osteophyte. There is close | | | approximation to the cord. No cord contouring. Facet and uncinate | | | degenerative changes bilaterally. Moderate left and mild right | | | neural foraminal narrowing. C7-T1: Minimal retrolisthesis. | | | Patent central spinal canal. Mild to moderate neural foraminal | | | narrowing bilaterally. The visible paravertebral soft tissues are | | | unremarkable. IMPRESSION - Upper thoracic scoliosis. | | | Diffuse cervical spondylosis. This most significantly affects the | | | central spinal canal at C4-C5 and C5-C6 where there is cord | | | contouring. Neural foraminal narrowing most significantly affects | | | C5-C6 where it is severe bilaterally. It is moderate bilaterally at | | | C4-C5 and moderate on the left at C6-C7. Dictated and Signed by: | | | Jeronimo Marr MD Electronically signed: 02/28/2015 3:41 PM | | + + + + + | Procedure Note | + + | Luis, Rad Results In - 02/28/2015 3:47 PM PST EXAM: MRI CERVICAL SPINE WO CONTRAST | | dated 02/28/2015 2:02 PM.HISTORY: neck and left arm symptomsCOMPARISON: None.TECHNIQUE: | | Multiplanar multisequence MR imaging of the cervical spine withoutcontrast. This is | | performed on a 1.5 Hollie magnet. FINDINGS: There is levoconvex scoliosis in the upper | | thoracic spine. There isslight retrolisthesis of C6 and C7. Slight anterolisthesis of | | T1. Diffuse discdesiccation. Mild to moderate disc narrowing at C4-C5 through T1. | | Modic type Ichanges in the left half of C7. The cord has normal size and signal | | throughoutits visible course. Limited evaluation of the posterior fossa contents | | isunremarkable. There is no precervical soft tissue thickening. C2-C3 isunremarkable | | on the sagittal sequence.The following levels are evaluated in the axial plane:C3-C4: | | Small posterior disc protrusion. Mild uncinate hypertrophy and facetarthrosis. Mild to | | moderate right and mild left neural foraminal narrowing. Mild narrowing of the central | | spinal canal.C4-C5: Posterior disc protrusion. Cord contouring. No cord signal | | alteration. Facet and uncinate degenerative changes contribute to moderate bilateral | | neuralforaminal narrowing.C5-C6: Posterior disc and osteophyte. Cord contouring. No | | cord signalalteration. Facet and uncinate degenerative changes. Severe bilateral | | neuralforaminal narrowing.C6-C7: Posterior disc and osteophyte. There is close | | approximation to the cord. No cord contouring. Facet and uncinate degenerative changes | | bilaterally. Moderate left and mild right neural foraminal narrowing.C7-T1: Minimal | | retrolisthesis. Patent central spinal canal. Mild to moderateneural foraminal | | narrowing bilaterally.The visible paravertebral soft tissues are unremarkable.IMPRESSION | | -Upper thoracic scoliosis.Diffuse cervical spondylosis. This most significantly | | affects the centralspinal canal at C4-C5 and C5-C6 where there is cord contouring.Neural | | foraminal narrowing most significantly affects C5-C6 where it is severebilaterally. It | | is moderate bilaterally at C4-C5 and moderate on the left atC6-C7.Dictated and Signed | | by: Jeronimo Marr MD Electronically signed: 02/28/2015 3:41 PM | | | |C5-C6: Posterior disc and osteophyte. Cord contouring. No cord signal | |alteration. Facet and uncinate degenerative changes. Severe bilateral neural | |foraminal narrowing. | | | |C6-C7: Posterior disc and osteophyte. There is close approximation to the cord. | | No cord contouring. Facet and uncinate degenerative changes bilaterally. | |Moderate left and mild right neural foraminal narrowing. | | | |C7-T1: Minimal retrolisthesis. Patent central spinal canal. Mild to moderate | |neural foraminal narrowing bilaterally. | | | |The visible paravertebral soft tissues are unremarkable. | | | |IMPRESSION - | | | |Upper thoracic scoliosis. | | | |Diffuse cervical spondylosis. This most significantly affects the central | |spinal canal at C4-C5 and C5-C6 where there is cord contouring. | | | |Neural foraminal narrowing most significantly affects C5-C6 where it is severe | |bilaterally. It is moderate bilaterally at C4-C5 and moderate on the left at | |C6-C7. | | | |Dictated and Signed by: Jeronimo Marr MD | | Electronically signed: 02/28/2015 3:41 PM | + + + + + + + | Performing | Address | City/State/Zipcode | Phone Number | | Organization | | | | + + + + + | [facility] | [address] | [place], [place] | [phone] | | [facility] | | [id number] | | | - IMAGING | | | | + + + + + documented in this encounter Visit Diagnoses + + | Diagnosis | + + | Other secondary scoliosis, lumbar region - Primary | + + | Lumbar spinal stenosis Spinal stenosis, lumbar region, without neurogenic | | claudication | + + | Lumbar radiculopathy Thoracic or lumbosacral neuritis or radiculitis, unspecified | + + | Foraminal stenosis of lumbar region Spinal stenosis, lumbar region, without | | neurogenic claudication | + + | Facet arthropathy, lumbar Lumbosacral spondylosis without myelopathy | + + | Degenerative disc disease, lumbar Degeneration of lumbar or lumbosacral | | intervertebral disc | + + | Neck pain, acute Cervicalgia | + + | Left arm pain Pain in limb | + + | Left arm numbness Disturbance of skin sensation | + + | Other osteoarthritis of spine, cervical region | + + documented in this encounter
--- OUTSIDE RECORDS SUMMARY | ~2020-01-09 | XMS | Encounter Summary ---
Demographics + + + | Address | [address] | | | [place] [address] | + + + | Home Phone | | + + + | Preferred Language | Unknown | + + + | Marital Status | Single | + + + | Denominational Affiliation | 1077 | + + + [...] [place] | | | | | [address] | | + + + + + | [place]erv[place] | ECON | Unknown | | + + + + + Care Team Providers + +------+ + | Care Wood Last Maker Name | Role | Phone | + +------+ + | Shubham Maurer MD | PCP | | + +------+ + Reason for Visit + +--------+ + | Reason | Onset | Comments | | | Date | | + +--------+ + | Medication Refill | 10/31/ | | | | 2019 | | + +--------+ + Encounter Details +--------+--------+ + + + | Date | Type | Department | Care Team | Description | +--------+--------+ + + + | 10/31/ | Refill | [facility] | Christiano Frost, | Medication Refill | | 2019 | | CARDIOLOGY [place] | [address] | | | | | [address] | [facility], | | | | | [place], [place] | [place] [address] | | | | | [address] | [phone] | | | | | [phone] | | | +--------+--------+ + + + Social History + +-------+ [...] Description | +--------+---------+ + + + | 10/30/ | Office | Cardiology | Christiano Frost, | | | 2019 | Visit | | [address] | | | | | | [place], | | | | | | [place] [address] | | | | | | [phone] | | | | | | | | +--------+---------+ + + + documented as of this encounter Visit Diagnoses Not on filedocumented in this encounter"
--- OUTSIDE RECORDS SUMMARY | ~2020-01-09 | XMS | Encounter Summary ---
Demographics + + + | Address | [address] | | | [place] [address] | + + + | Home Phone | | + + + | Preferred Language | Unknown | + + + | Marital Status | Single | + + + | Worship Affiliation | 1077 | + + + | Race | White | + + + | Ethnic Group | Not or | + + + Author + + + | Author | [facility] | | | and [place] | + + + | Organization | [facility] | | | [...] [place] | | | | | [address] | | + + + + + | Santo Cervantes | ECON | Unknown | | + + + + + Care Team Providers + +------+ + | Care Food Service Sales Representatives Name | Role | Phone | + [...] 2017 | Changes | ORTHOPEDIC SURGERY | Cat Hooker | | | | | [address] | | | | | | [place] | | | | | | [address] | | | | | | [phone] | | | +--------+ + + + [...] | | | | | | [place] [address] | | | | | | [phone] | | | | | | | | +--------+---------+ + + + documented as of this encounter Visit Diagnoses Not on filedocumented in this encounter"
--- OUTSIDE RECORDS SUMMARY | ~2020-01-09 | XMS | Encounter Summary ---
Demographics + + + | Address | [address] | | | [place] [address] | + + + | Home Phone | | + + + | Preferred Language | Unknown | + + + | Marital Status | Single | + + + | Faith Affiliation | 1077 | + + + | Race | White | + + + | Ethnic Group | Not or | + + + Author + + + | Author | [facility] | | | and [place] | + + + | Organization | [facility] | | | [...] [place] | | | | | [address] | | + + + + + | Santo Cervantes | ECON | Unknown | | + + + + + Care Team Providers + +------+ + | Care Menhaden Fishing Crew Member Name | Role | Phone | + +------+ + | Shubham Maurer MD | PCP | | + +------+ + Encounter Details +--------+ + + + + | Date | Type | Department | Care Team | Description | +--------+ + + + + | 01/17/ | Orders Only | [facility] | Damian Escobedo | Status post right | | 2018 | | ORTHOPEDIC SURGERY | [address] | knee replacement | | | | [address] [place] | [address] | (Primary Dx); Right | | | | [place] | [place] [address] | knee pain, | | | | [address] | [phone] | unspecified | | | | [phone] | | chronicity | +--------+ + + [...] | | | | | | [place] [address] | | | | | | [phone] | | | | | | | | +--------+---------+ + + + documented as of this encounter Results XR Knee Right 1 [...]
--- OUTSIDE RECORDS SUMMARY | ~2020-01-09 | XMS | Encounter Summary ---
Demographics + + + | Address | [address] | | | [place] [address] | + + + | Home Phone [...] Author + + + | Author | [facility] | | | and [place] | + + + | Organization | [facility] | | | and [...] [place] | | | | | [address] | | + + + + + | Santo Cervantes | ECON | Unknown | | + + + + + Care Team Providers + +------+ + | Care Code Inspector Name | Role | Phone | + +------+ + | Shbuham Maurer MD | PCP | | + +------+ + Reason for Visit + +--------+ + | Reason | Onset | Comments | | | Date | | + +--------+ + | Results, Imaging | 03/05/ | | | | 2014 | | + +--------+ + Encounter Details +--------+ + + + + | Date | Type | Department | Care Team | Description | +--------+ + + + + | 03/05/ | Telephone | [facility] [place] | Min Tello MD | Results, Imaging | | 2015 | | NEUROSURGERY [address] | [address] | | | | | [address] | [place] [address] | | | | | [place], [place] | [phone] | | | | | [address] | | | | | | [phone] | | | +--------+ + + + [...] this encounter Miscellaneous Notes Telephone Encounter - Linnea Mclean - 03/05/2015 9:42 AM PSTSurgery scheduled Jada Olsen is advised per Dr. Tello. He verbalized understanding. elephone Encounter - Linnea Mclean - 015 9:21 AM PST----- Message from Min Tello MD sent at 03/04/2015 15:42 PST ----- Regarding: RE: REVIEW MRI He has cervical degeneration and may require surgery on his neck but his back is much worse . Min Tello ----- Message ----- From: Linnea Mclean, Seafood Process Worker Sent: 03/04/2015 9:31 To: Min Tello MD Subject: REVIEW MRI Please review Cervical spine MRI for surgical planning. Letter/telephone f/u. Procedure planned: L3-5 LAIF, L5-S1 TLIF, Lami L3-S1. Thanks, LINNEA MCLEAN documented in this enc ounter Plan of Treatment +--------+---------+ + + + | Date | Type | Specialty | Care Team | Description | +--------+---------+ + + + | 01/24/ | Office | Cardiology | Christiano Frost, | | 2019 | Visit | | MD [address] | | | | | | [place], | | | | | | [place] [address] | | | | | | [phone] | | | | | | | | +--------+---------+ + + + documented as of this encounter Visit Diagnoses Not on filedocumented in this encounter"
--- OUTSIDE RECORDS SUMMARY | ~2020-01-09 | XMS | Encounter Summary ---
Demographics + + + | Address | [address] | | | [place] [address] | + + + | Home Phone | | + + + | Preferred Language | Unknown | + + + | Marital Status | Single | + + + | Judaism Affiliation | 1077 | + + + | Race | White | + + + | Ethnic Group | Not or | + + + Author + + + | Author | [facility] | | | and [place] | + + + | Organization | [facility] | | [...] [place] | | | | | [address] | | + + + + + | Santo Cervantes | ECON | Unknown | | + + + + + Care Team Providers + +------+ + | Care Bus Steward Name | Role | Phone | + +------+ + | Shubham Maurer MD | PCP | | + +------+ + Encounter Details +--------+ + + + + | Date | Type | Department | Care Team | Description | +--------+ + + + + | 08/19/ | Hospital | [facility] | Jovan Alford | Lumbar spinal | | 2016 | Encounter | MED CTR XRAY [address] | [address] | stenosis; Lumbar | | | | [place] | [address] [place] | radiculopathy; | | | | [place] [address] | [address] | Foraminal stenosis | | | | [phone] | | of lumbar region; | | | | | | Facet arthropathy, | | | | | | lumbar; S/P lumbar | | | | | | fusion | +--------+ + + + + Social [...] | + + + +---------+--------+ + | acetaminophen | Take 500 mg by mouth | | 0 | | | | (TYLENOL) 500 mg | every 6 hours as | | | | 6 | | tablet | needed for Pain. | | | | | + + + +---------+--------+ + | Rock[place]-3 Krill Oil | Take 2 capsules by [...] | | | | | | [place] [address] | | | | | | [phone] | | | | | | | | +--------+---------+ + + + documented as of this encounter Procedures + +--------+ + + + | Procedure Name | Priori | Date/Time | Associated Diagnosis | Comments | | | ty | | | | + +--------+ + + + | XR LUMBAR SPINE 2 OR | Routin | 08/20/2015 | Lumbar spinal | Results for this | | 3 VW | e | 10:59 AM | stenosis Lumbar | procedure are in the | | | | PDT | radiculopathy | results section. | | | | | Foraminal stenosis | | | | | | of lumbar region | | | | | | Facet arthropathy, | | | | | | lumbar S/P lumbar | | | | | | fusion | | + +--------+ + + + documented in this encounter Results XR Lumbar Spine 2 or 3 Vw (08/20/2015 10:59 AM PDT) + + | Specimen | + + | | + + + + + | Narrative | Performed At | + + + | XR LUMBAR SPINE 2 OR 3 VW 08/20/2015 10:59 AM HISTORY: Postop. | [facility] | | COMPARISON: Multiple priors. FINDINGS: Again seen are hardware | [employer] | | for posterior fusion from L3 through S1 with spacer hardware at these [facility] | | levels. Slight left curvature of the lumbar spine is observed. | - IMAGING | | Moderate spondylosis is seen. Mild retrolisthesis is present of L2 | | | over L3. There is mild anterolisthesis of L4 over L5. Bone | | | mineralization is normal. Vertebral body height are preserved with no | | | evidence for compression fractures. Moderate disc narrowing is at | | | L1-2. There is mild disc narrowing at L2-3. Facet joints are intact. | | | Visualized ribs and pelvic osseous structures show no acute findings. | | | Mild atherosclerosis is seen. Soft tissues are unremarkable. | | | IMPRESSION - Stable posterior fusion from L3 through S1. Dictated | | | and Signed by: Faisal Nguyen MD Electronically signed: 08/20/2015 | | | 12:44 PM | | + + + + + | Procedure Note | + + | Luis, Rad Results In - 08/20/2015 12:48 PM PDT XR LUMBAR SPINE 2 OR 3 VW 08/20/2015 | | 10:59 AMHISTORY: Postop.COMPARISON: Multiple priors.FINDINGS:Again seen are hardware for | | posterior fusion from L3 through S1 with spacerhardware at these levels. Slight left | | curvature of the lumbar spine is observed.Moderate spondylosis is seen. Mild | | retrolisthesis is present of L2 over L3.There is mild anterolisthesis of L4 over L5. | | Bone mineralization is normal.Vertebral body height are preserved with no evidence for | | compression fractures.Moderate disc narrowing is at L1-2. There is mild disc narrowing | | at L2-3. Facetjoints are intact. Visualized ribs and pelvic osseous structures show no | | acutefindings. Mild atherosclerosis is seen. Soft tissues are unremarkable.IMPRESSION | | -Stable posterior fusion from L3 through S1.Dictated and Signed by: Faisal Nguyen MD | | Electronically signed: 08/20/2015 12:44 PM | |Vertebral body height are preserved with no evidence for compression fractures. | |Moderate disc narrowing is at L1-2. There is mild disc narrowing at L2-3. Facet | |joints are intact. Visualized ribs and pelvic osseous structures show no acute | |findings. Mild atherosclerosis is seen. Soft tissues are unremarkable. | | | |IMPRESSION - | |Stable posterior fusion from L3 through S1. | | | |Dictated and Signed by: Faisal Nguyen MD | | Electronically signed: 08/20/2015 12:44 PM | + + + + + + + | Performing | Address | City/State/Zipcode | Phone Number | | Organization | | | | + + + + + | [facility] | [address] 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
--- OUTSIDE RECORDS SUMMARY | ~2020-01-09 | XMS | Encounter Summary ---
Demographics + + + | Address | [address] | | | [place] [address] | + + + | Home Phone | | + + + | Preferred Language | Unknown | + + + | Marital Status | Single | + + + | Baptism Affiliation | 1077 | + + + [...] + + + + + | Bruno aDy | ECON | Unknown | | + + + + + | Yung Vivar | ECON | [place] | | | | | [address] | | + + + + + | Santo Cervantes | ECON | Unknown | | + + + + + Care Team Providers + +------+ + | Care Lean Engineer Name | Role | Phone | + +------+ + | Shubham Maurer MD | PCP | | + +------+ + Reason for Visit +--------+--------+ + | Reason | Onset | Comments | | | Date | | +--------+--------+ + | Other | 03/23/ | | | | 2017 | | +--------+--------+ + Encounter Details +--------+ + + + + | Date | Type | Department | Care Team | Description | +--------+ + + + + | 03/23/ | Telephone | [facility] | Damian Escobedo | Other | | 2017 | | ORTHOPEDIC SURGERY | [address] | | | | | [address] | [facility] | | | | | [place] | [place] [address] | | | | | [address] | [phone] | | | | | [phone] | | | +--------+ + + + [...] this encounter Miscellaneous Notes Telephone Encounter - Angela Mattson - 03/23/2018 4:30 PM PSTCalled patient to nehemiah goyal that any future dental work will require an antibiotic prior. Thank you. Electronicall y signed by Angela Mattson at 03/23/2018 4:34 PM PSTdocumented in this encounter Plan of Treatment +--------+---------+ + + + | Date | Type | Specialty | Care Team | Description | +--------+---------+ + + + | 01/24/ | Office | Cardiology | Christiano Frost, | | | 2019 | Visit | | MD [address] | | | | | | [place], | | | | | | [place] [address] | | | | | | [phone] | | | | | | | | +--------+---------+ + + + documented as of this encounter Visit Diagnoses Not on filedocumented in this encounter"
--- OUTSIDE RECORDS SUMMARY | ~2020-01-09 | XMS | Encounter Summary ---
Demographics + + + | Address | [address] | | | [place] [address] | + + + | Home Phone | | + + + | Preferred Language | Unknown | + + + | Marital Status | Single | + + + | Gnosticist Affiliation | 1077 | + + + | Race | White | + + + | Ethnic Group | Not or | + + + Author + + + | Author | [facility] | | | and [place] | + + + | Organization | [facility] | | | [...] [place] | | | | | [address] | | + + + + + | Santo Cervantes | ECON | Unknown | | + + + + + Care Team Providers + +------+ + | Care Classroom Instructional Aide Name | Role | Phone | + +------+ + | Shubham Maurer MD | PCP | | + +------+ + Reason for Visit +--------+--------+ + | Reason | Onset | Comments | | | Date | | +--------+--------+ + | Pre-Op | 10/10/ | | | | 2020 | | +--------+--------+ + Encounter Details +--------+ + + + + | Date | Type | Department | Care Team | Description | +--------+ + + + + | 10/10/ | Telephone | [facility] | Christiano Frost, | Pre-Op | | 2020 | | CENTER CV INTRA OP | [address] | | | | | [address] | [address] [address] [facility], | | | | | [place], [place] | [place] [address] | | | | | [address] | [phone] | | | | | [phone] | | | +--------+ + + + [...] this encounter Miscellaneous Notes Telephone Encounter - Faisal Kumari - 10/11/2019 11:29 AM PDTSpoke with patient regarding pr e op instructions. Asked all COVID-19 scheduling questions. All answers were no. documented in this encounter Plan of Treatment +--------+---------+ + + + | Date | Type | Specialty | Care Team | Description | +--------+---------+ + + + | 01/24/ | Office | Cardiology | Christiano Frost, | | | 2019 | Visit | | MD [address] | | | | | | [place], | | | | | | [place] [address] | | | | | | [phone] | | | | | | | | +--------+---------+ + + + documented as of this encounter Visit Diagnoses Not on filedocumented in this encounter"
--- OUTSIDE RECORDS SUMMARY | ~2020-01-09 | XMS | Encounter Summary ---
Demographics + + + | Address | [address] | | | [place] [address] | + + + | Home Phone | | + + + | Preferred Language | Unknown | + + + | Marital Status | Single | + + + | Muslim Affiliation | 1077 | + + + | Race | White | + + + | Ethnic Group | Not or | + + + Author + + + | Author | [facility] | | | and [place] | + + + | Organization | [facility] | | | and [...] [place] | | | | | [address] | | + + + + + | Santo Cervantes | ECON | Unknown | | + + + + + Care Team Providers + +------+ + | Care Otorhinolaryngologist Name | Role | Phone | + [...] + + | 10/05/ | Office | [facility] | Julius Nowak | Primary | | 2018 | Visit | ORTHOPEDIC SURGERY | MD Liliana [address] | osteoarthritis of | | | | [address] [place] | [place] | left knee (Primary | | | | [place], [place] | [address] | Dx) | | | | [address] | | | | | | [phone] | | | +--------+---------+ + + + [...] Advice: We have discussed our findings with Kvng. He is still getting along fairly well [...] | | | | | | [place] [address] | | | | | | [phone] | | | | | | | | +--------+---------+ + + + documented as of this encounter Visit Diagnoses + + | Diagnosis | + + | Primary osteoarthritis of left knee - Primary Primary localized osteoarthrosis, lower | | leg | + + documented in this encounter
--- OUTSIDE RECORDS SUMMARY | ~2020-01-09 | XMS | Encounter Summary ---
Demographics + + + | Address | [address] | | | [place] [address] | + + + | Home Phone | | + + + | Preferred Language | Unknown | + + + | Marital Status | Single | + + + | Hindu Affiliation | 1077 | + + + | Race | White | + + + | Ethnic Group | Not or | + + + Author + + + | Author | [facility] | | | and [place] | + + + | Organization | [facility] | | | [...] [place] | | | | | [address] | | + + + + + | Santo Cervantes | ECON | Unknown | | + + + + + Care Team Providers + +------+ + | Care Scientific Programmer Analyst Name | Role | Phone | + +------+ + | Shubham Maurer MD | PCP | | + +------+ + Reason for Visit +--------+ + | Reason | Comments | +--------+ + | Other | end of study | +--------+ + Encounter Details +--------+ + + + + | Date | Type | Department | Care Team | Description | +--------+ + + + + | 10/22/ | Documentati | [facility] | Beierle, Adelita R, | Other (end of study) | | 2020 | on | CARDIOLOGY [place] | Technologist | | | | | [address] | | | | | | [place] | | | | | | [address] | | | | | | [phone] | | | +--------+ + + + [...] documented as of this encounter Progress Notes Adelita Huang, Technologist - 10/23/2019 11:59 PM PDT Cardiac Fundraising Coordinator Date of Event Monitor: 10/23/19 Referring Physician: [place]: Raúl Day : 1950 Age: 69 y.o. male INDICATIONS: W I48.92 Unspecified atrial flutter, I63.2 CVA FINDINGS: CONCLUSIONS: Associated attestation - Christiano Frost MD - 11/28/2019 9:11 PM PDTA cardiac rhythm anal ysis was performed on 2 leads for 30 days, corresponding to > 2.3 million beats. During the monitored time period, 85.79% of the total recording yielded tracings that were capable of b eing analyzed, which showed the following: The predominant rhythm was sinus, with an average heart rate of 63 bpm, ranging from 45 - 1 15 bpm. A normal circadian rhythm was seen. Sinus bradycardia was present for 33.1% of the recording, with heart rates < 50 bpm present for 3% the recording, confined to late night/ea rly morning hours. Sinus tachycardia was present for < 1% of the time. There was no evidence of atrioventricular block, and no clinically significant pauses were noted. The overall ventricular ectopy burden was 1.82%. There were 63,260 isolated PVCs (approxima tely 1.5 per minute). There were also 1727 ventricular couplets, 109 ventricular triplets, but no evidence of ventricular tachycardia. In addition, 16,890 PVCs occurred in the settin g of ventricular bigeminy and 789 in the setting of of ventricular trigeminy. The overall atrial ectopic rhythm burden was 2.63%. There were 81,965 isolated PACs (1.9 pe r minute). There were 885 atrial couplets and 142 atrial triplets. There were 123 runs of p aroxysmal atrial tachycardia during the monitored time period, the maximum duration of which was 26 consecutive beats, at a rate of 92 bpm. The maximum recorded heart rate during any o f these runs was a 4 beat run at 151 bpm. There were 21,779 PACs in the setting of atrial b igeminy, and 3474 in atrial trigeminy. There was no evidence of paroxysmal atrial fibrillation, atrial flutter or PSVT during the monitored time period. 349 episodes of symptoms were reported during the monitored time period, including 237 epis odes of "shortness of breath" (of which 74 corresponded to sinus bradycardia, 55 to isolated PACs, 49 to isolated PVCs, 5 to ventricular couplets, 5 to atrial couplets, 1 to a blocked PAC, and 1 to an atrial triplet). There were 71 episodes of "palpitations" (of which 33 cor responded to isolated PACs, 24 to isolated PVCs, 6 to NSR, 4 to ventricular couplets, 3 to a trial couplets, and one to an atrial triplet). There were episodes of "dizziness" (5 corre sponded to isolated PVCs, 3 to isolated PACs, and 3 in sinus rhythm). There were 3 episodes of "chest discomfort" that occurred in NSR, and 5 episodes, without specified symptoms (of which 3 corresponded to PACs and 2 occurred in NSR). No significant ST segment abnormalities were noted. CONCLUSION: This is a mildly abnormal 30 day event monitor, with sinus rhythm, rare PVCs, PACs, and rare episodes of low grade complex ventricular and supraventricular ectopy. Howev er, no clinically significant arrhythmias were noted. There were multiple episodes of repo rted symptoms, most of which corresponded to PVCs and PACs or mild low grade ectopy, but felix e occurred in the setting of sinus rhythm. documented in this encounter Plan of Treatment [...] | | | | | | [place] [address] | | | | | | [phone] | | | | | | | | +--------+---------+ + + + documented as of this encounter Visit Diagnoses Not on filedocumented in this encounter
--- OUTSIDE RECORDS SUMMARY | ~2020-01-09 | XMS | Encounter Summary ---
Demographics + + + | Address | [address] | | | [place] [address] | + + + | Home Phone | | + + + | Preferred Language | Unknown | + + + | Marital Status | Single | + + + | Mormonism Affiliation | PRO | + + + [...] Team Providers + +------+ + | Care Non Garment Sewing Machine Operator Name | Role | Phone | + +------+ + | Shubham Maurer MD | PCP | | + +------+ + Encounter Details +--------+ + + + + | Date | Type | Department | Care Team | Description | +--------+ + + + + | 01/09/ | Document-Sc | [facility] | Min Tello MD | | | 2019 | anned | Neurosurgery at [facility] | [address] | | | | | [address] | [address] | | | | | [address] | [place] [address] | | | | | [place], [place] | [phone] | | | | | [address] | | | | | | [phone] | | | +--------+ + + + [...]
--- OUTSIDE RECORDS SUMMARY | ~2020-01-09 | XMS | Encounter Summary ---
Demographics + + + | Address | [address] | | | [place] [address] | + + + | Home Phone [...] Author + + + | Author | [facility] | | | and [place] | + + + | Organization | [facility] | | | [...] [place] | | | | | [address] | | + + + + + | Santo Cervantes | ECON | Unknown | | + + + + + Care Team Providers + +------+ + | Care Aerotriangulation Specialist Name | Role | Phone | [...] | | | | | disc | [place], | [address] | | | | | disease, | [place] [address] | [place] | | | | | lumbar | Phone: | [place] [address] | | | | | Facet | [phone] | Phone: | | | | | arthropathy, | Fax: | [phone] | | | | | lumbar | [phone] | Fax: | | | | | Foraminal | | [phone] | | | | | stenosis of [...] + + + + Reason for Visit +--------+--------+ + | Reason | Onset | Comments | | | Date | | +--------+--------+ + | Other | 06/12/ | REQUEST FOR REFERRAL TO A PAIN MANAGEMENT FACILITY | | | 2015 | | +--------+--------+ + Encounter Details +--------+ + + + + | Date | Type | Department | Care Team | Description | +--------+ + + + + | 06/12/ | Telephone | [facility] | Min Tello MD | Other (REQUEST FOR | | 2015 | | NEUROSURGERY [address] | [address] | REFERRAL TO A PAIN | | | | [address] | [place] [address] | MANAGEMENT FACILITY) | | | | [place] | [phone] | | | | | [address] | | | | | | [phone] | | | +--------+ + + + [...] this encounter Miscellaneous Notes Telephone Encounter - Sarah Mclean - 06/17/2015 11:38 AM PDTReferral to [facility] through [facility] for fax[facility]. Rúal is updated at this time. He will call them directly if he does not get a call to claudia bell in 1 week. elep adrian Encounter - David Stevens - 06/17/2015 9:50 AM PDTPatient is calling to check the status of his referral for pain management. Patient also states that he has an appointment scheduled for today for a knee injection. Patient is asking for a call back at [phone]. Thank you. elephone E eunice - Jovan Alford PA - 06/17/2015 6:45 AM PDTapproved elephone Encounter - Mclean Sarah Rojas - 06/13/2015 12:24 [address]Dr. Maurer calls to let STEVE Bolanos know that Mr. Day st opped by his office requesting Narcotic medication to help manage his knee pain. Current int [place] of medication is Oxycodone 5 mg 2 tabs every [address] Maurer is concerned about t he current narcotic intake. He referred Raúl to get an injection in his knee, and to star t aquatic therapy but would like assistance from our office to help Raúl wean from the med ication-Requests we refer him to the [facility] for pain management. Also, asks t hat we please communicate with him before sending his patient back to him on high doses of n arcotics-possible concerns of an indication of patient having a history of addiction. He is going to start Raúl back on Diclofenac on 08/03/15. Referral to the [facility] attached. Please approve/deny. documented in this encounter Plan of Treatment [...] | | | | | | [place] [address] | | | | | | [phone] | | | | | | | [...]
--- OUTSIDE RECORDS SUMMARY | ~2020-01-09 | XMS | Encounter Summary ---
Demographics + + + | Address | [address] | | | [place] [address] | + + + | Home Phone | | + + + | Preferred Language | Unknown | + + + | Marital Status | Single | + + + | Hinduism Affiliation | PRO | + + + | Race | Unknown | + + + | Ethnic Group | Not or | + + + Author + + + | Organization | Unknown | + + + | Address | Unknown | + + + | Phone | Unavailable | + + + Support + + +---------+ + | Name | Relationship | Address | Phone | + + +---------+ + | Ron Day | ECON | Unknown | | + + +---------+ + Care Team Providers + +------+ + | Care Heel Slugger Name | Role | Phone | + +------+ + | Shubham Maurer MD | PCP | | + +------+ + Encounter Details +--------+--------+ + + + | Date | Type | Department | Care Team | Description | +--------+--------+ + + + | 01/09/ | Travel | | | | | 2019 | | | | | +--------+--------+ + + + [...]
--- OUTSIDE RECORDS SUMMARY | ~2020-01-09 | XMS | Encounter Summary ---
Demographics + + + | Address | [address] | | | [place] [address] | + + + | Home Phone | | + + + | Preferred Language | Unknown | + + + | Marital Status | Single | + + + | Zoroastrianism Affiliation | 1077 | + + + | Race | White | + + + | Ethnic Group | Not or | + + + Author + + + | Author | [facility] | | | and [place] | + + + | Organization | [facility] | | [...] [place] | | | | | [address] | | + + + + + | Santo Cervantes | ECON | Unknown | | + + + + + Care Team Providers + +------+ + | Care [employer] Humanities Teacher Name | Role | Phone | + +------+ + | Shubham Maurer MD | PCP | | + +------+ + Reason for Visit + + + | Reason | Comments | + + + | New Patient | bilateral knee pain onset years | + + + Evaluate & Treat (Routine) +--------+--------+ + + + + | Status | Reason | Specialty | Diagnoses / | Referred By | Referred To | | | | | Procedures | Contact | Contact | +--------+--------+ + + + + | Closed | | Orthopedic | Diagnoses | [place], | Eliu, | | | | Surgery | Bilateral | Shubham Owens, | Julius Ford MD | | | | | knee pain | [address] | [address] | | | | | | [address] | [address] [place] | | | | | | [place], | [place], [place] | | | | | | [place] [address] | [address] Phone: | | | | | | Phone: | [phone] | | | | | | [phone] | Fax: | | | | | | Fax: | [phone] | | | | | | [phone] | | +--------+--------+ + + + + Encounter Details +--------+---------+ + + + | Date | Type | Department | Care Team | Description | +--------+---------+ + + + | 11/08/ | Office | [facility] [place] | Julius Nowak | Primary | | 2018 | Visit | ORTHOPEDIC SURGERY | MD Liliana [address] | osteoarthritis of | | | | [address] [place] | [place] | both knees (Primary | | | | [place] | [address] | Dx) | | | | [address] | | | | | | [phone] | | | +--------+---------+ + + + [...] Weight | 78 kg (172 lb) | 11/08/2017 3:00 PM | | | | | PDT | | + + + + + | Height | 172.7 cm (5' 8") | 11/08/2017 3:00 PM | | | | | PDT | | + + + + + | Body Mass Index | 26.15 | 11/08/2017 3:00 PM | | | | | PDT | | + + + + + documented in this encounter Progress Notes Julius Nowak MD - 11/08/2017 3:00 PM PDTFormatting of this note might be differen t from the original. Raúl Day [id number] Raúl Day is 67 y.o. male who sees Shubham Maurer MD for primary care. Glenis porter has a many year history of bilateral knee pain right worse than left and is now failed con servative measures including rest, tibia modification, bilateral knee injections, tumor, glu cosamine, bracing, and exercises. He basically has come today to discuss the option of knee joint replacement. Past Medical History: Diagnosis Date Degenerative disc disease, lumbar Hard of hearing bilateral hearing aids Hernia cerebri (HCC) Past Surgical History: Procedure Laterality Date HERNIA REPAIR Right 1979 El LUMBAR SPINE SURGERY Bilateral 05/05/2015 Procedure: L3-4, L4-5 Lateral Anterior Interbody Fusion, L5-S1 Transforaminal Lumbar Inter body Fusion, Laminectomy @ L3-4, L4-5, L5-S1; Surgeon: Min Tello MD; Location: [facility] MAIN OR TOE SURGERY Right VASECTOMY 1983 No Known Allergies Current Outpatient Prescriptions Medication Sig Dispense Refill Black Pepper-Turmeric (TURMERIC COMPLEX/BLACK PEPPER) 3-500 MG CAPS Take by mouth. diclofenac (VOLTAREN) 75 mg EC tablet Take 75 mg by mouth 2 times daily. fish oil 1,000 mg capsule Take 1,000 mg by mouth 3 times daily. Misc Natural Products (GLUCOSAMINE CHOND COMPLEX/MSM PO) Take 1,500 mg by mouth. Erie-3 Fatty Acids (OMEGA 3 PO) Take 2 capsules by mouth 2 times daily. No current facility-administered medications for this visit. Family History Problem Relation Age of [...] No narrative on file Review of Systems - Eyes: [] Double vision [x] Glasses/contacts [] [...] or shoulder pain []Rheumatoid disease [] Osteoarthritis [x] Joint pain [] Joint swelling []Gout [] [...] Difficulties [] Speech change [] Voice change Physical Examination: Ht 1.727 m (5' 8") | Wt 78 kg (172 lb) | BMI 26.15 kg/m EXTREMITIES: Examination of both knees reveals that he has moderate varus deformities. His right knee motion is approximately 10 to 110 his left knee motion is approximate 5-115. Ligaments are stable. Both knees are tender to palpation in the region of the joint lines , particularly medially. Neurovascular function is intact to both feet. Imaging results: X-rays taken of both knees are reviewed which show rather significant deg enerative change with prominent medial compartment wear with [id number] articulation in th e medial compartment. There is degenerative change throughout the remainder both knees as w ell. ASSESSMENT: Advanced bilateral knee osteoarthrosis, right worse than left. PLAN: We have discussed our findings at length and have answered multiple questions for Raúl. He clearly has advanced knee degenerative joint disease and would like to proceed with defin itive treatment. He therefore will be scheduled for a right total knee joint arthroplasty f ollowing financial clearance at a time that is convenient for his schedule. Today, we have given him educational material regarding total knee joint replacement surgery. documented in this encounter Plan of Treatment +--------+---------+ + + + | Date | Type | Specialty | Care Team | Description | +--------+---------+ + + + | 01/24/ | Office | Cardiology | Christiano Frost, | | | 2019 | Visit | | MD [address] | | | | | | [place], | | | | | | [place] [address] | | | | | | [phone] | | | | | | | | +--------+---------+ + + + documented as of this encounter Visit Diagnoses + + | Diagnosis | + + | Primary osteoarthritis of both knees - Primary Primary localized osteoarthrosis, | | lower leg | + + documented in this encounter
--- OUTSIDE RECORDS SUMMARY | ~2020-01-09 | XMS | Encounter Summary ---
Demographics + + + | Address | [address] | | | [place] [address] | + + + | Home Phone | | + + + | Preferred Language | Unknown | + + + | Marital Status | Single | + + + | Voodoo Affiliation | PRO | + + + [...] Team Providers + +------+ + | Care Electrical Electronics Technician Name | Role | Phone | + +------+ + | Shubham Maurer MD | PCP | | + +------+ + Reason for Referral Diagnostic Testing (Routine) + +--------+ + + + + | Status | Reason | Specialty | Diagnoses / | Referred By | Referred To | | | | | Procedures | Contact | Contact | + +--------+ + + + + | Authorized | | Radiology | Diagnoses | Min Tello | | | | | | Cervical | MD [address] | | | | | | spondylosis | [address] | | | | | | with | [address] | | | | | | radiculopath | [place], | | | | | | y [place] | [place] [address] | | | | | | (degenerativ | Phone: | | | | | | e disc | [phone] | | | | | | disease), | Fax: | | | | | | cervical | [phone] | | | | | | Cervical | | | | | | | stenosis of | | | | | | | spinal canal | | | | | | | Other | | | | | | | osteoarthrit | | | | | | | is of spine, | | | | | | | cervical | | | | | | | region | | | | | | | Procedures | | | | | | | MRI SPINE | | | | | | | CERVICAL WO | | | | | | | CONTRAST | | | + +--------+ + + + + Reason for Visit + + + | Reason | Comments | + + + | New patient | Lumbar | | consultation | | + + + Consultation (Routine) +--------+--------+ + + + + | Status | Reason | Specialty | Diagnoses / | Referred By | Referred To | | | | | Procedures | Contact | Contact | +--------+--------+ + + + + | Closed | | Neurological | Diagnoses | Non-[facility] | Min Tello | | | | Surgery | Lumbar | Epic Brittanyt | MD [address] | | | | | scoliosis | [address] | | | | | Degenerative | | [address] | | | | | disc | | [place], [place] | | | | | disease, | | [address] | | | | | lumbar | | Phone: | | | | | Facet | | [phone] | | | | | arthropathy, | | Fax: | | | | | lumbar | | [phone] | | | | | Lumbar | | | | | | | radiculopath | | | | | | | y Lumbar | | | | | | | spinal | | | | | | | stenosis | | | | | | | Foraminal | | | | | | | stenosis of | | | | | | | lumbar | | | | | | | region | | | | | | | Procedures | | | | | | | CONSULT TO | | | | | | | NEUROSURGERY | | | +--------+--------+ + + + + Encounter Details +--------+---------+ + + + | Date | Type | Department | Care Team | Description | +--------+---------+ + + + | 01/09/ | Office | [facility] | Min Tello MD | Cervical spondylosis | | 2019 | Visit | Neurosurgery at [address] | [address] | with radiculopathy | | | | [address] | [address] | (Primary Dx); DDD | | | | [address] | [place] [address] | (degenerative disc | | | | [place], [place] | [phone] | disease), cervical; | | | | [address] | | Cervical stenosis of | | | | [phone] | | spinal canal; Other | | | | | | [...] + + + | Blood Pressure | 117/75 | 01/09/2019 12:50 PM | | | | | PDT | | + + + + + | Pulse | 86 | 01/09/2019 12:50 PM | | | | | PDT | | + + + + + | Temperature | 36.5 C (97.7 F) | 01/09/2019 12:50 PM | | | | | PDT | | + + + + + | Respiratory Rate | - | - | | + + + + + | Oxygen Saturation | 97% | 01/09/2019 12:50 PM | | | | | PDT | | + + + + + | Inhaled Oxygen | - | - | | | Concentration | | | | + + + + + | Weight | 81 kg (178 lb 9.2 | 01/09/2019 12:50 PM | | | | oz) | PDT | | + + + + + | Height | 172.7 cm (5' 8") | 01/09/2019 12:50 PM | | | | | PDT | | + + + + + | Body Mass Index | 27.15 | 01/09/2019 12:50 PM | | | | | PDT | | + + + + + documented in this encounter Progress Notes Min Tello MD - 01/09/2019 1:00 PM PDTFormatting of this note might be different from t he original. Min Tello MD [facility] Neurosurgery [place] [address] [address] [address] NEUROSURGERY HISTORY AND PHYSICAL EXAMINATION CHIEF COMPLAINT: New patient consultation (Lumbar) REFERRING PROVIDER: Shubham Maurer MD HISTORY OF PRESENT ILLNESS: The patient is a 68 y.o. male with the complaint of discomfort and pain in between the shou lder blades and upper back that began November 2018. The patient describes he had originall y been lifting something which started the pain. It subsided on its own and returned during a camping trip. Taking Advil and using heating pads has helped alleviate pain, but there con tinues to be dysesthesia between the shoulder blades. He denies numbness or tingling. Of note, he had previous multilevel lumbar fusion by Dr. Tello in 2015. The symptoms have been gradually improving. The symptoms are intermittent. He describes the pain as sharp. The patient does not report any change in bowel or bladder function recently. His symptoms improve with heat and Advil. His symptoms worsen with changing positions, bending, and twisting. He has tried NSAIDS. The patient is not currently taking nerve medication and opioids. Thes e measures are still helping. PAST MEDICAL HISTORY: History reviewed. No pertinent past medical history. PAST SURGICAL HISTORY: Past Surgical History Procedure Laterality Date L3-4, l4-5 lateral anterior interbody fusion, l5-s1 transforaminal lumbar interbody fus ion, laminectomy @ l3-4, l4-5, l5-s1 05/05/2015 Knee replacement 12/2017 CURRENT MEDICATIONS: No current outpatient medications on file. No current facility-administered medications for this visit. ALLERGIES: No Known Allergies SOCIAL HISTORY: Social History Tobacco Use Smoking status: Never Smoker Smokeless tobacco: Never Used Substance Use Topics Alcohol use: Never Frequency: Never FAMILY HISTORY: Family History Problem Relation Cancer Father REVIEW OF SYSTEMS: Constitutional: Negative. HENT: Negative. Eyes: Negative. Respiratory: Negative. Cardiovascular: Negative. Gastrointestinal: Negative. Genitourinary: Negative. Musculoskeletal: Negative. Skin: Negative. Neurological: Negative. Endo/Heme/Allergies: Negative. Psychiatric/Behavioral: Negative. PHYSICAL EXAMINATION: Blood pressure 117/75, pulse 86, temperature 36.5 C (97.7 F), height 1.727 m (5' 8"), w eight 81 kg (178 lb 9.2 oz), SpO2 97 %. Body mass index is 27.15 kg/m. GENERAL: Raúl Day is in no acute distress with unlabored respirations. The patient does not appear uncomfortable throughout the exam today. HEENT: Head: Normocephalic/atraumatic with no areas of recent trauma. Eyes: Normal sclerae without icterus. Ears: No drainage or tenderness. Nasopharnyx: Clear without drainage. Oropharnyx: Clear without erythema. NECK (ANTERIOR): Supple and without palpable masses. CHEST: Clear to ausculation without crackles or wheeze. HEART: Regular rate and rhythm without murmurs. ABDOMEN: Soft, non-tender, non-distended, and without palpable masses. The patient is not o bese. SPINE: There is no tenderness of the cervical spine. Rotation of the neck does not cause symptoms to radiation into either arm. Flexion or extension does not cause discomfort. Range of motion is not limited. EXTREMITIES: No cyanosis, clubbing, or edema. Distal pulses are palpable. NEUROLOGICAL EXAM: MENTAL STATUS: The patient is awake, alert, and oriented. He follows simple and complex commands. His speech is fluent, he comprehends speech well, and he repeats well. He has no apparent deficits with short or care home memory. CRANIAL NERVES: II: Acuity is intact. [...] Intrinsics 5 5 Ulnar Intrinsics 5 5 Examining Chair Assembler Strength 5 5 Hip Flexion 4+ 5 Hip Extension 5 5 Knee Flexion 5 5 Knee Extension 5 5 Dorsiflexion 5 5 Extensor Hallicus Longus 5 5 Plantarflexion 5 5 SENSORY EXAM: Sensory exam shows no diminished sensation to light touch or pain throughout the upper and lower extremities. REFLEXES: (2 OR 2+ IS NORMAL) REFLEX: RIGHT LEFT BICEPS 1 1 BRACHIORADIALIS 1 1 TRICEPS 1 1 PATELLAR 1 1 ACHILLES 1 1 CABRAL'S Absent Absent PLANTAR Down Down GAIT: Gait is steady. TEST AND RADIOGRAPHIC REVIEW: The patient's imaging was reviewed in detail with the patient today during the visit. The M RI from 2014 shows spinal canal stenosis at C5-T1 from cervical spondylosis. ASSESSMENT: NEUROSURGICAL DIAGNOSES: 1. Cervical spondylosis with radiculopathy 2. DDD (degenerative disc disease), cervical 3. Cervical stenosis of spinal canal 4. Other osteoarthritis of spine, cervical region GENERAL DIAGNOSES: History reviewed. No pertinent past medical history. PLAN: Raúl Day presented today, and we went over in great detail his neurologic problems. The patient has pain and dysesthesia in between the shoulder blades likely from an intermit tent radiculopathy. The patient is improving with conservative care at this point but had fa irly severe symptoms recently. I discussed updating our cervical MRI and flexion/extension x-rays for complete work-up of his symptoms and to evaluate for worsening of canal stenosis. We will order the imaging at [facility]. We had a general discussion about other non-conservative options including steroid injectio ns and physical therapy. The patient will follow-up with us once his imaging is complete. I am Rene Hope functioning as a scribe for Min Tello MD at 1:46 PM on 01/09/2019 I have reviewed and verified the above scribed note of my visit with this patient as record ed by Rene Hope. Min Tello MD [facility] NEUROSURGERY AT [address] [place] [id number] Rhianna Roberts MA - 12/26 1:00 PM PDTReview of Systems Constitutional: Negative. HENT: Negative. Eyes: Negative. Respiratory: Negative. Cardiovascular: Negative. Gastrointestinal: Negative. Genitourinary: Negative. Musculoskeletal: Negative. Skin: Negative. Neurological: Negative. Endo/Heme/Allergies: Negative. Psychiatric/Behavioral: Negative. documented in this enco unter Plan of Treatment + +---------+--------+ + + | Name | Type | Priori | Associated Diagnoses | Order Schedule | | | | ty | | | + +---------+--------+ + + | MRI SPINE CERVICAL | Imaging | Routin | Cervical | Expected: | | WO CONTRAST | | e | spondylosis with | 01/09/2019, Expires: | | | | | radiculopathy DDD | 02/10/2020 | | | | | (degenerative disc | | | | | | disease), cervical | | | | | | Cervical stenosis of | | | | | | spinal canal Other | | | | | | osteoarthritis of | | | | | | spine, cervical | | | | | | region | | + +---------+--------+ + + | X-RAY SPINE CERVICAL | Imaging | Routin | Cervical | Expected: | | 2 VIEWS | | e | spondylosis with | 01/09/2019, Expires: | | FLEXION/EXTENSION | | | radiculopathy DDD | 02/10/2020 | | | | | (degenerative disc | | | | | | disease), cervical | | | | | | Cervical stenosis of | | | | | | spinal canal Other | | | | | | osteoarthritis of | | | | | | spine, cervical | | | | | | region | | + +---------+--------+ + + documented as of this encounter Visit Diagnoses + + | Diagnosis | + + | Cervical spondylosis with radiculopathy - Primary Cervical spondylosis with | | myelopathy | + + | DDD (degenerative disc disease), cervical Degeneration of cervical intervertebral | | disc | + + | Cervical stenosis of spinal canal Spinal stenosis in cervical region | + + | Other osteoarthritis of spine, cervical region | + + documented in this encounter
--- OUTSIDE RECORDS SUMMARY | ~2020-01-09 | XMS | Encounter Summary ---
Demographics + + + | Address | [address] | | | [place] [address] | + + + | Home Phone | | + + + | Preferred Language | Unknown | + + + | Marital Status | Single | + + + | Restorationism Affiliation | 1077 | + + + | Race | White | + + + | Ethnic Group | Not or | + + + Author + + + | Author | [facility] | | | and [place] | + + + | Organization | [facility] | | | [...] [place] | | | | | [address] | | + + + + + | Santo Cervantes | ECON | Unknown | | + + + + + Care Team Providers + +------+ + | Care Donations Attendant Name | Role | Phone | + +------+ + | Shubham Maurer MD | PCP | | + +------+ + Reason for Visit +--------+--------+ + | Reason | Onset | Comments | | | Date | | +--------+--------+ + | Other | 03/11/ | | | | 2014 | | +--------+--------+ + Encounter Details +--------+ + + + + | Date | Type | Department | Care Team | Description | +--------+ + + + + | 03/11/ | Telephone | [facility] [place] | Min Tello MD | Other | | 2015 | | NEUROSURGERY [address] | | | | | [address] | [place] [address] | | | | | [place], [place] | [phone] | | | | | [address] | | | | | | [phone] | | | +--------+ + + + [...] Notes Telephone Encounter - Sarah Mclean - 03/12/2015 9:36 AM PSTUnfortmario, the surger y time on 04/07/15 is no longer available. Raúl is updated at this time. He verbalized u nderstanding. elephone Encounter - Esmer Mathur - 03/11/2015 4:12 PM PSTPatient returned call. He states this call is regarding rescheduling surgery. Electronically signed by Esmer Mathur at 5 4:13 PM PSTTelephone Encounter - Sarah Mclean - 03/11/2015 11:38 AM PSTCall dea jay Left a voicemail requesting callback. elephone Encounter - Tiara Oviedo 03/11/2015 9:00 AM PSTPatient called stating that Sarah called him y and he was returning her call. He would like a call back. documented in this encounter Plan of Treatment [...] | | | | | | [place] [address] | | | | | | [phone] | | | | | | | | +--------+---------+ + + + documented as of this encounter Visit Diagnoses Not on filedocumented in this encounter"
--- OUTSIDE RECORDS SUMMARY | ~2020-01-09 | XMS | Encounter Summary ---
Demographics + + + | Address | [address] | | | [place] [address] | + + + | Home Phone [...] | [facility] | | | and [place] | + + + | Organization | [facility] | | [...] [place] | | | | | [address] | | + + + + + | Santo Cervantes | ECON | Unknown | | + + + + + Care Team Providers + +------+ + | Care Driver Courier Name | Role | Phone | + [...] | | radiculopath | [facility] | | | | | y Spinal | [address] | [address] | | | | | stenosis, | AVE | AVE | | | | | lumbar [place] | [place] | [place], [place] | | | | | (degenerativ | [address] | [address] | | | | | e disc | Phone: | Phone: | | | | | disease), | [phone] | [phone] | | | | | lumbar | Fax: | Fax: | | | | | Procedures | [phone] | [phone] | | | | | MRI Lumbar [...] + + | 10/09/ | Office | [facility] | Jovan Alford | Lumbar radiculopathy | | 2016 | Visit | NEUROSURGERY [address] | [facility] [address] | (Primary Dx); | | | | [address] [place], [place] | Spinal stenosis, | | | | [place], [place] | [address] | lumbar; [place] | | | | [address] | | (degenerative disc | | | | [phone] | | disease), lumbar | +--------+---------+ + [...] from the original. .. STEVE Mills [address] [facility], [address] [place] [address] FAX: NEUROSURGERY FOLLOW-UP CHIEF COMPLAINT: Chief Complaint [...] 75 mg by mouth 2 times daily. [place]-3 Krill Oil 500 MG CAPS Take 1 [...] has had significant progressive symptoms over the month or so. He has significant weakness [...] completed. He will continue to follow-up with az s primary care provider as needed ELECTRONICALLY [...] | | | | | | [place] [address] | | | | | | [phone] | | | | | | | [...]
--- OUTSIDE RECORDS SUMMARY | ~2020-01-09 | XMS | Encounter Summary ---
Demographics + + + | Address | [address] | | | [place] [address] | + + + | Home Phone | | + + + | Preferred Language | Unknown | + + + | Marital Status | Single | + + + | Church Affiliation | 1077 | + + + | Race | White | + + + | Ethnic Group | Not or | + + + Author + + + | Author | [facility] | | | and [place] | + + + | Organization | [facility] | | | and [...] [place] | | | | | [address] | | + + + + + | Santo Cervantes | ECON | Unknown | | + + + + + Care Team Providers + +------+ + | Care Child Protective Services Social Worker Name | Role | Phone | [...] | | | | spine, | | [place], [place] | | | | | unspecified | | [id number] | | | | | scoliosis | | Phone: | | | | | Scoliosis of | | [phone] | | | | | lumbar | | Fax: | | | | | spine, | | [phone] | | | | | unspecified | | | | | | | scoliosis | | | | | | | [M41.9] | | | | | | | Procedures | | | | | | | [place] | | | | | | | ARTHRODESIS | | | | | | | POSTERIOR/PO | | | | | | | STEROLATERAL | | | | | | | LUMBAR | | | +--------+--------+ + + + + Encounter Details +--------+---------+ + + + | Date | Type | Department | Care Team | Description | +--------+---------+ + + + | 05/05/ | Surgery | [facility] | Min Tello MD | L3-4, L4-5 Lateral | | 2016 | | MED CTR OR INTRA OP | [address] | Anterior Interbody | | | | [address] | [place] [address] | Fusion, L5-S1 | | | | [facility] | [phone] | Transforaminal | | | | [address] | | Lumbar Interbody | | | | [phone] | | Fusion, Laminectomy | | | | | | @ L3-4, L4-5, L5-S1 | +--------+---------+ + + + Social History [...] + + + | Blood Pressure | 118/82 | 05/05/2015 12:00 PM | | | | | PST | | + + + + + | Pulse | 70 | 05/05/2015 12:00 PM | | | | | PST | | + + + + + | Temperature | 36.3 C (97.3 F) | 05/05/2015 12:00 PM | | | | | PST | | + + + + + | Respiratory Rate | 18 | 05/05/2015 12:00 PM | | | | | PST | | + + + + + | Oxygen Saturation | 97% | 05/05/2015 12:00 PM | | | | | PST | | + + + + + | Inhaled Oxygen | - | - | | | Concentration | | | | + + + + + | Weight | 79.8 kg (176 lb) | 05/05/2015 12:00 PM | | | | | PST | | + + + + + | Height | 172.7 cm (5' 8") | 05/05/2015 12:00 PM | | | | | PST | | + + + + + | Body Mass Index | 27.99 | 05/05/2015 12:00 PM | | | | | PST | | + + + + + documented in this encounter Discharge Summaries Jovan Alford PA - 05/08/2015 7:20 AM PSTFormatting of this note might be differen t from the original. [facility] NEUROSURGERY DISCHARGE SUMMARY Patient Name: Raúl Day Patient : 1950 PCP: Shubham Maurer Date of Admission: 05/05/2015 Date of Discharge: 05/08/2015 Primary Discharge Dx: Scoliosis of lumbar spine, unspecified scoliosis [M41.9] Lumbar flat back syndrome Lumbar degenerative disc disease L5-S1 Lumbar spinal stenosis Lumbar foraminal stenosis Lumbar facet arthropathy Lumbar spondylolisthesis Lumbar radiculopathy Secondary Discharge Dx(s): Patient Active Problem List Diagnosis Lumbar scoliosis Degenerative disc disease, lumbar Facet arthropathy, lumbar Lumbar radiculopathy Facet arthropathy, lumbar Lumbar spinal stenosis Foraminal stenosis of lumbar region Neck pain, acute Left arm pain Left arm numbness Cervical spondylosis Procedures 1. Minimally invasive lumbar fusion via anterior and posterior approaches 2. Combined posterolateral and posterior interbody arthrodesis L5-S1 3. Anterior lumbar interbody arthrodesis L3-4, L4-5 4. Posterolateral lumbar arthrodesis L3, L4, L5 5. Posterior spinal instrumentation L3-S1 with use of Precept 6. Placement of PEEK interbody spacer L3-4, L4-5 and L5-S1 7. L3 laminectomy, L3-4 facetectomy, L3 and L4 foraminotomy for decompression of L3 and L4 nerves 8. L4 laminectomy, L4-5 facetectomy, L4 and L5 foraminotomy for decompression of L4 and L5 nerves 9. L5 laminectomy, L5-S1 facetectomy, L5 and S1 foraminotomy for decompression of L5 and S1 nerves 10. Microsurgical technique with use of operating microscope Hospital Course: Post op the patient did well with the exception of distention of hi Abdomen. This improved on day 3 with a large BM and passing of flatus. He was also started on flowmax and will co ntinue for about 30 days. He worked well with PT and OT. Pain was controlled. He lives al one and wishes SNF for rehab Condition on Discharge: Stable Discharge Medications: Discharge Medications New Medications Details cyclobenzaprine 10 mg tablet Take 1 tablet by mouth every 8 hours as needed for Muscle spasms. aka: FLEXERIL lactulose 10 g/15 mL solution Take 30 mLs by mouth Daily as needed. oxyCODONE-acetaminophen 5-325 mg per tablet Take 1-2 tablets by mouth every 4 hours as needed for Pain. aka: PERCOCET tamsulosin 0.4 mg Caps Take 1 capsule by mouth daily (after breakfast). aka: FLOMAX Unchanged Medications Details cholecalciferol 1,000 units capsule Take 1,000 Units by mouth Daily. aka: VITAMIN D-3 OMEGA-3 COMPLEX PO Take 2 capsules by mouth Daily. [place]-3 Krill Oil 500 MG Caps Take 1 capsule by mouth Daily. PLANT STEROLS AND STANOLS PO Take by mouth 2 times daily. Red Yeast Rice 600 MG Caps Take 1 capsule by mouth 2 times daily. Discontinued Medications dexamethasone 2 MG tablet aka: DECADRON diclofenac 75 mg EC tablet aka: VOLTAREN FERROUS SULFATE PO ; Current Discharge Medication List START taking these medications Medication Dose Last Dose Taken; cyclobenzaprine (FLEXERIL) 10 mg tablet 10 mg Take 1 tablet by mouth every 8 hours as needed for Muscle spasms. Quantity: 90 tablet Refills: 3 Start date: 05/08/2015 lactulose 10 g/15 mL solution 30 mLs Take 30 mLs by mouth Daily as needed. Quantity: 240 mL Refills: PRN Start date: 05/08/2015 oxyCODONE-acetaminophen (PERCOCET) 5-325 mg per tablet 1-2 tablets Take 1-2 tablets by mouth every 4 hours as needed for Pain. Quantity: 120 tablet Refills: 0 Start date: 05/08/2015 tamsulosin (FLOMAX) 0.4 mg CAPS 0.4 mg Take 1 capsule by mouth daily (after breakfast). Quantity: 30 capsule Refills: 0 Start date: 05/08/2015 CONTINUE these medications which have NOT CHANGED Medication Dose Last Dose Taken; cholecalciferol (VITAMIN D-3) 1,000 units capsule 1,000 Units Take 1,000 Units by mouth Daily. XMH-MTP-Ewuofhn E (OMEGA-3 COMPLEX PO) 2 capsules Take 2 capsules by mouth Daily. [place]-3 Krill Oil 500 MG CAPS 1 capsule Take 1 capsule by mouth Daily. PLANT STEROLS AND STANOLS PO Take by mouth 2 times daily. Red Yeast Rice 600 MG CAPS 1 capsule Take 1 capsule by mouth 2 times daily. Follow-Up: documented in th is encounter Medications at Time of Discharge + + + +---------+ + + | Medication | Sig | Dispensed | Refills | Start | End Date | | | | | | Date | | + + + +---------+ + + | cholecalciferol | Take 1,000 Units by | | 0 | | | | (VITAMIN D-3) 1,000 | mouth Daily. | | | | 6 | | units capsule | | | | | | + + + +---------+ + + | cyclobenzaprine | Take 1 tablet by | 90 | 3 | 05/08/19 | | | (FLEXERIL) 10 mg | mouth every 8 hours | tablet | | 16 | 6 | | tablet | as needed for Muscle | | | | | | | spasms. | | | | | + + + +---------+ + + | KSP-VKG-Ssiwkip E | Take 2 capsules by | | 0 | | | | (OMEGA-3 COMPLEX PO) | mouth Daily. | | | | 6 | + + + +---------+ + + | lactulose 10 g/15 | Take 30 mLs by mouth | 240 mL | 0 | 05/08/19 | | | mL solution | Daily as needed. | | | 16 | 6 | + + + +---------+ + + | [place]-3 Krill Oil | Take 2 capsules by | | 0 | | | | 500 MG CAPS | mouth 2 times daily. | | | | 6 | + + + +---------+ + + | | Take 1-2 tablets by | 120 | 0 | 05/08/19 | | | oxyCODONE-acetaminop | mouth every 4 hours | tablet | | 16 | 6 | | hen (PERCOCET) 5-325 | as needed for Pain. | | | | | | mg per tablet | | | | | | + + + +---------+ + + | PLANT STEROLS AND | Take by mouth 2 | | 0 | | | | STANOLS PO | times daily. | | | | 6 | + + + +---------+ + + | Red Yeast Rice 600 | Take 1 capsule by | | 0 | | | | MG CAPS | mouth 2 times daily. | | | | 6 | + + + +---------+ + + | tamsulosin | Take 1 capsule by | 30 | 0 | 05/08/19 | | | (FLOMAX) 0.4 mg CAPS | mouth daily (after | capsule | | 16 | 6 | | | breakfast). | | | | | + + + +---------+ + + documented as of this encounter Progress Katie Bernabe RN - 05/08/2015 10:42 AM PSTPt [facility] Pt was [facility] out in a stable condition. Report given to Re at [facility]. Electro nically signed by Katie Delgado RN at 05/08/2015 10:44 AM PSTWest, Jaspreet Espino - 05/07/2015 7:42 AM PST [facility] PROGRESS NOTE Pt. Name/Age/: Raúl Day 65 y.o. 1950 Med. Record Number: [id number] Date of admission: 05/05/2015 Subjective: The patient chart and medications were reviewed in detail and the patient was s een and examined. The patient is doing OK post op day 2. Abdomen is distended and painful. Pt is nauseated. Back pain is improved some with pain medication. Most of his complaint is abdominal diste ntion Objective: Temp: 37.9 C (100.2 F) BP: 121/63 mmHg Pulse: 90 Resp: 18 SpO2: 90 % on Min/Max Temp past 24 hours:Temp Av.5 C (99.5 F) Min: 36.9 C (98.4 F) Max: 3 7.9 C (100.2 F) Intake/Output Summary (Last 24 hours) at 05/07/15 0742 Last data filed at 05/07/15 0503 Gross per 24 hour Intake 1260 ml Output 1220 ml Net 40 ml Wt. Admission: Weight: 79.833 kg (176 lb) Wt. Current: Weight: 83.5 kg (184 lb 1.4 oz) Exam: General: A&O Cardiovascular: RRR Respiratory: clear Abdomen: tympanic/distended Extremities: no edema Neurological: stable Diagnostic studies: Available data and images were reviewed personally. See reports. Signi ficant results and findings are addressed here or in the Assessment and Plan. Assessment and Plan: Sp lumbar fusion Patient Active Problem List Diagnosis Lumbar scoliosis Degenerative disc disease, lumbar Facet arthropathy, lumbar Lumbar radiculopathy Facet arthropathy, lumbar Lumbar spinal stenosis Foraminal stenosis of lumbar region Neck pain, acute Left arm pain Left arm numbness Cervical spondylosis Plan. Work with PT and OT [facility]. Will probably DC to SNF vs Home Electronically signed by: Jovan Alford, 05/07/2015 7:42 [facility] Derik Yu, Medical Student - 05/06/2015 7:36 AM PST65 yo male POD-1 for L3-L4 lateral anterior interb radha fusion and L5-S1 transforaminal lumbar interbody fusion. States that the pre-op pain (b ack to right leg) is much better and currently rates his incisional/neuropathic pain at 0/10 . His primary concern at this time is bloating with nausea; tried carbonated beverage witho ut relief. Has not been up to ambulate yet, but anxious to do so. Urine: Catheter, gas: None. Afebrile with 5/5 motor strength bilaterally with plantar extension and dorsiflexion. Sensory function grossly intact. Drain #1: 100 cc past 12 hours, drain #2: 50 cc past 1 2 hours. Will get patient up and ambulating today. documented in this encounter H&P Notes Min Tello MD - 05/05/2015 3:16 PM PSTFormatting of this note might be different from t he original. Min Tello MD [address] [facility] [facility], [address] [place] [address] FAX: NEUROSURGERY FOLLOW-UP CHIEF COMPLAINT: Chief Complaint Patient presents with Follow-up Discuss Surgery HISTORY OF PRESENT ILLNESS: The patient is a 65 y.o. male with the complaint of back and le g pain symptoms that began years prior. In January 2014, things got very severe. He returns still complaining of had severe back and leg pain. The patient describes severe pain down t he right leg to the right foot. His right leg is weak. His pain is very intense if he over d oes things now. He has 6-9/10 pain. The symptoms have been stable but remain unimproved. He presents for planned surgery. His symptoms have worsened further since stopping NSAIDS. He has increased arthritic pain in his knees worst on the right in particular. He rates the pain as severe. The symptoms are daily. He describes the pain as aching, numbi ng, sharp and tingling. His walking distance and [...] capsule Take 1,000 Units by mouth Daily. BKP-NAI-Fnjtqzb E (OMEGA-3 COMPLEX PO) Take 2 capsules by mouth Daily. diclofenac (VOLTAREN) 75 mg EC tablet Take 75 mg by mouth 2 times daily. FERROUS SULFATE PO Take by mouth Daily. [place]-3 Krill Oil 500 MG CAPS Take 1 [...] anemia, no fatigue, no recent profound weight alav ges. EYES: + eye problems, + use of corrective lenses, no eye injury, no double vision, no blind ness. EARS, NOSE, AND THROAT: No changes in taste or smell, + hearing difficulty, + ringing in th e ears, no ear drainage, no dizziness, no voice changes, no difficulty swallowing, + signifi cant snoring, no sleep apnea, no sinus problems, + major dental work. NEUROLOGICALLY: Please see the review of systems discussed above in the history of present illness. In addition, the patient has numbness of arms and legs, muscle aching, and pain in back. PSYCHIATRIC: + depression, no sleep disorders, + anxiety, no bipolar disorder, no psychotic episodes. CARDIOVASCULAR: No heart attacks, no heart murmur, no heart fluttering, no chest pain, no a nkle swelling. LUNG DISEASE: No shortness of breath, no cough, no tuberculosis, no bloody cough, no asthma , no emphysema/COPD. GASTROINTESTINAL: No bowel disease, no nausea or vomiting, no rectal bleeding, no constipat ion, no stool incontinence, no liver disease, no gallbladder disease, no abdominal pain, no ulcers. KIDNEY DISEASE: No urinary frequency, no painful or difficult urination, no incontinence. ENDOCRINE: No diabetes, no thyroid disease, no osteopenia or osteoporosis, no breast draina ge. SKIN: No breast lumps, no skin changes, no rashes, no itches. HEMATOLOGIC/LYMPHATIC: No enlarged lymph nodes, no easy or unusual bleeding, no personal hi story of cancer. RHEUMATOLOGIC: No joint arthritis, no [...] and without palpable masses. The patient is pushpa bese. SPINE: There is no tenderness in the midline of the cervical or thoracic spine. There is m ajor palpable deformity of the spine. The lumbar spine shows there is tenderness in the midline of the L4, L5 levels. To palpatio n, there is no signficant myofascial tenderness. EXTREMITIES: No cyanosis, clubbing, or edema. Distal pulses are palpable. NEUROLOGICAL EXAM: MENTAL STATUS: The patient is awake, alert, and oriented. He follows simple and complex commands. His speech is fluent, he comprehends speech well, and he repeats well. He has no apparent deficits with short or jail memory. MOTOR EXAM: (5 IS NORMAL) * Indicates pain limited MUSCLE/ MOVEMENT: RIGHT LEFT Deltoids 5 5 Biceps 5 5 Triceps 5 5 Wrist Flexion 5 5 Wrist Extension 5 5 Median Intrinsics 5 5 Ulnar Intrinsics 5 5 Furnace Operator Strength 5 5 Hip Flexion 5 5 [...] visit. The M RI from 2014 shows severe multilevel lumbar degeneration with central stenosis, foraminal st enosis, severe DDD, and severe facet arthropathy. He appears to have rightward disc collapse with leftward scoliosis. His worst segments are by far L3-S1. ASSESSMENT: NEUROSURGICAL DIAGNOSES: Encounter Diagnoses Name Primary? Other secondary scoliosis, lumbar region Yes Lumbar spinal stenosis Lumbar radiculopathy Foraminal stenosis of lumbar region Facet arthropathy, lumbar Degenerative disc disease, lumbar Neck pain, acute Left arm pain Left arm numbness Other osteoarthritis of spine, cervical region GENERAL DIAGNOSES: Past Medical History Diagnosis Date Hernia Degenerative disc disease, lumbar PLAN: Raúl Day presented today, and it was a pleasure seeing this patient and asses sing his problems. The patient has radiculopathy and stenosis symptoms with severe degenerat meera changes from L1-S1. He decided previously to avoid at L1-S1 operation and chose a L3-S1 to address his worst findings. He is aware he might require additional surgery later. I had a lengthy discussion with the patient about his options for care including surgical a nd non-surgical options. I recommended he obtain imaging of his lumbar spine with x-rays and scoliosis series so that I could plan options for him. We did discuss techniques and options for a multilevel fusion. We discussed the risks, alternatives, and benefits to surgical intervention with Mr. Broussard son . These risks included but were not limited to , stroke, heart attack, numbness, we akness, paralysis, failure of fusion, failure of hardware, subsidence, adjacent segment dege neration, cerebrospinal fluid leak, bleeding, infection, injury to surrounding tissues and o rgans, injury from positioning, injury to the nerves, difficulty with breathing, difficulty with swallowing, difficulty with voice change, and [...] that although some patients may obtain 100% symp jena relief, it is realistic to anticipate that some symptoms will continue postoperatively d espite a successful surgery. We also discussed that there is no guarantee that surgery will provide improvement in his c ondition, and indeed may even worsen the symptoms. We also discussed that in the course of t he procedure the operative plan may be altered to include more, less, or different levels de pending upon findings in order to provide him [...] rate of fusion. He would like to proceed with surgery as discussed. ELECTRONICALLY SIGNED BY: Min Tello MD, 05/05/2015 15:20 documented in this encou nter Miscellaneous Notes Plan of Care - Katie Delgado RN - 05/08/2015 10:36 AM PSTProblem: Patient Care Ove rview (Adult) Goal: Care Team Goals & Evaluation PROBLEM-RELATED GOALS: 1. Will meet 75% of predicted goal for Inspirometer of 2400 by 05/09/14.completed Pt will void adq amts on by 6hr past post-op transfer lewis in place at time of transfer ginette r dr ramos. 05/07/2015 Pts pain will be rated as tolerable by 05/06/2015. Pt will be free from falls through hospital stay 05/07/2015 Pt will be modified inpdt in his room and halls using FWW, safely demonstrated by 05/09/15. 6. Pt. Will be mod(I) with all aspects of his ADLs by 05/10/15 STRATEGY TO ACHIEVE GOALS: 1. Instruct patient in the use of Incentive Spirometry and/or deep breath and cough. Nursin g and Respiratory to work together to have patient use every hour while awake. Respiratory t o monitor progress 4 times daily until 75% goal met then turn over to nursing.completed 05/07 Ambulate pt to BR to void, if unable to void bladder scan and straight cath/place lewis per Dr. Ramos. Monitor pt s ain level frequently, adm pain meds as needed per DR. Order. Monitor pt closely,maintain call bol[place] by bedside, encouraged pt to call prn, place bed alar m as needed. PT intervention and pt education and training. Pt. To participate fully in OT sessions and be receptive to recommendations. Outcome: Improving Goal Evaluation: 1. Pt reaching 1500 with IS 2. Pt voiding adequately. 3. Pt reports tolerable pain. Medicated pt for hip pain. 4. No falls. 5. Pt SBA using FWW Pt had BM on 05/07/15. Pt reports no discomfort. Tolerated General diet for breakfast with no n/v. Pt discharged to [facility]. lan of Vince - Patricia Dawn - 05/08/2015 7:51 AM PSTReferral faxed to [facility]. [place]: [phone] Electronically signed by: Patricia Dawn 05/08/2015 7:52 Received a call from Sola @ [facility]. She can accept this patient today. Faxed orders, PASRR and Discharge Summary over. Received the Communication Result Report. Result OK. SNF packet complete, T/M to [facility], asked for RX for medications. Paged [facility]. Electronically signed by: Patricia Dawn 05/08/2015 9:07 Spoke with Kvng this morning regarding discharging today. IMM given and explained. Answered all his questions and concerns Electronically signed by: Patricia Dawn 05/08/2015 9:29 converter supervisor time is 1030. Left a message for [facility] regarding the RX for Percocet. Staff notified of product picker time. Electronically signed by: Patricia Dawn 05/08/2015 9:50 [facility] Transfer - Eben Alford PA - 05/08/2015 7:17 AM PSTFormatting of this note might be different from the o riginal. [facility] FACILITY TRANSFER ORDERS Patient Name: Raúl Day Patient : 1950 Gender: male Date of Admission: 05/05/2015 Date of Discharge: 05/08/2015 Admitting Provider: Min Tello MD Discharging Provider: STEVE Mills Consultants: PT/OT PCP: Shubham Maurer [facility] transferring to: [facility] Provider after transfer: CODE STATUS: [x] Attempt CPR [] Do not resuscitate If patient is pulseless and not breathing, RN/PHOTONICS ENGINEER may pronounce . Advanced Directives included: [] POLST [] MOLST/MOST [] [facility] ([place]) [] Other: Code status discussed with: [x] Patient [] Spouse/Family [] DPOA [] Other: Name of person discussed with: Date discussed: Isolation/Infection Precautions: [x] None Height: Height: 172.7 cm (5' 8") Wt Readings from Last 3 Encounters: 05/06/15 83.5 kg (184 lb 1.4 oz) 02/28/15 78.019 kg (172 lb) 11/29/14 78.019 kg (172 lb) Admitting Diagnosis: Scoliosis of lumbar spine, unspecified scoliosis Patient Active Problem List Diagnosis Lumbar scoliosis Degenerative disc disease, lumbar Facet arthropathy, lumbar Lumbar radiculopathy Facet arthropathy, lumbar Lumbar spinal stenosis Foraminal stenosis of lumbar region Neck pain, acute Left arm pain Left arm numbness Cervical spondylosis No Known Allergies There is no immunization history on file for this patient. Diet: [x] As tolerated THUMB SEWER may upgrade or downgrade diet as condition Indicates. [] RN may downgrade diet as indicated. Type: [] Continue current diet of: Diet and Supplements Diet DIET GENERAL Number of Occurrences: Until Specified [] Other: Consistency/Precautions: [] Whole [] Thin Liquids [] Cut-up [] [place] Thick [] Advanced Chopped [] Honey Thickened [] Chopped [] Advanced Ground [] 1:1 feedings [] Ground/Pureed [] Other: Tube Feedings: [] PEG [] GT [] JT [] NGT [] Formula type: (Leave Specialist may change/substitute if indicated). [] Continuous Rate: ml/hr, infusing hrs/day [] Bolus feeds: ml every hours [] Additional water: ml every hours Respiratory: [] BiPAP at night & PRN SOB. Settings: O2 L bleed Dx: [] CPAP at night & PRN SOB. Settings: O2 L bleed Dx: [] Suction & Pulmonary toilet PRN secretion/sputum management. Dx: [x] Incentive Spirometer QID and PRN while awake. Duration: ____3 weeks Dx: [] Tracheostomy management per protocol [] [...] - Type & Location: [] Other: Activity/Therapies: []WBAT [] Weight Bearing Restricted (specify limb(s)): [x] PT Evaluation & Management for: strength and mobility____ [x] OT Evaluation & Management for: strength and mobility_ [] THUMB SEWER Evaluation &Management for: [] Other: Wound/Skin Care: [] Follow current recommendations of the wound team for treatment. [x] Follow standard nursing protocols for wound care. [] Wound Vac management per nursing protocol. Indication: Location: Settings: Change frequency: & prn [] Other: Labs/Imaging: [] PT/INR: Frequency: Dx: Goal INR: Duration of therapy: [] Fingerstick glucose checks: Dx: DM [] Other: Test/Study Needed/Frequency Diagnosis/Indication Follow up appointments and consultations: Dr eTllo/Chuck Alford Date/Time: 4 weeks Date/Time I have advised this patient that [...] New Medications Details Order Next Dose Due cyclobenzaprine 10 mg tablet Take 1 tablet by mouth every 8 hours as needed for Muscle spasms. aka: FLEXERIL By: Jovan Alford Quant: 90 tablet lactulose 10 g/15 mL solution Take 30 mLs by mouth Daily as needed. By: Jovan Alford Quant: 240 mL oxyCODONE-acetaminophen 5-325 mg per tablet Take 1-2 tablets by mouth every 4 hours as needed for Pain. aka: PERCOCET By: Jovan Alford Quant: 120 tablet tamsulosin 0.4 mg Caps Take 1 capsule by mouth daily (after breakfast). aka: FLOMAX By: Jovan Alford Quant: 30 capsule Unchanged Medications Details Order Next Dose Due cholecalciferol 1,000 units capsule Take 1,000 Units by mouth Daily. aka: VITAMIN D-3 OMEGA-3 COMPLEX PO Take 2 capsules by mouth Daily. [place]-3 Krill Oil 500 MG Caps Take 1 capsule by mouth Daily. PLANT STEROLS AND STANOLS PO Take by mouth 2 times daily. Red Yeast Rice 600 MG Caps Take 1 capsule by mouth 2 times daily. Discontinued Medications dexamethasone 2 MG tablet aka: DECADRON diclofenac 75 mg EC tablet aka: VOLTAREN FERROUS SULFATE PO IJovan PA, certify that post hospital long-term care is medically necess felicia on a continuing basis for any of the conditions for which he/she received care during th is hospitalization. Check one: [x] Skilled [] Intermediate Additional Orders/Instructions: Physician's signature: Chuck alford PA-C 05/08/2015 7:17 [facility] USE ONLY: [] Admitting orders verbally reviewed with Admitting Physician, modified where appropriate, and approved. Verbal Order from Date: Time: _ RN name: RN signature: [] Admitting orders reviewed, modified where appropriate, and approved. Physician's signature: Date: Time: lan of Care - Julius Sanford RN - 05/08/2015 4:00 AM PSTProblem: Patient Care Overview (Adult) Goal: Care Team Goals & Evaluation PROBLEM-RELATED GOALS: 1. Will meet 75% of predicted goal for Inspirometer of 2400 by 05/09/14.completed Pt will void adq amts on by 6hr past post-op transfer lewis in place at time of transfer ginette ramos. 05/07/2015 Pts pain will be rated as tolerable by 05/06/2015. Pt will be free from falls through hospital stay 05/07/2015 Pt will be modified inpdt in his room and halls using FWW, safely demonstrated by 05/09/15. 6. Pt. Will be mod(I) with all aspects of his ADLs by 05/10/15 STRATEGY TO ACHIEVE GOALS: 1. Instruct patient in the use of Incentive Spirometry and/or deep breath and cough. Nursin g and Respiratory to work together to have patient use every hour while awake. Respiratory t o monitor progress 4 times daily until 75% goal met then turn over to nursing.completed 05/07 Ambulate pt to BR to void, if unable to void bladder scan and straight cath/place lewis per Order. Monitor pt s ain level frequently, adm pain meds as needed per Order. Monitor pt closely,maintain call bolton by bedside, encouraged pt to call prn, place bed alar m as needed. PT intervention and pt education and training. Pt. To participate fully in OT sessions and be receptive to recommendations. Outcome: Improving Goal Evaluation: Kvng is using his IS throughout the shift, lung sounds are clear and he denies any SOB. He is voiding fine and had a BM and is passing significant amounts of gas. This has relieved hi s abdominal pressure/pain and he is feeling much better. He rates his pain at 2/10. He is am bulating in the halls with FWW and supervision. His ADY drains are collection small (<10 ml) amounts of serosanguinous fluid. lan of Care - Katie Floyd RN - 05/07/2015 6:42 PM PSTProblem: Patient Care Overview (Adult) Goal: Care Team Goals & Evaluation PROBLEM-RELATED GOALS: 1. Will meet 75% of predicted goal for Inspirometer of 2400 by 05/09/14.completed Pt will void adq amts on by 6hr past post-op transfer lewis in place at time of transfer ginette carrizales dr order. 05/07/2015 Pts pain will be rated as tolerable by 05/06/2015. Pt will be free from falls through hospital stay 05/07/2015 Pt will be modified inpdt in his room and halls using FWW, safely demonstrated by 05/09/15. 6. Pt. Will be mod(I) with all aspects of his ADLs by 05/10/15 STRATEGY TO ACHIEVE GOALS: 1. Instruct patient in the use of Incentive Spirometry and/or deep breath and cough. Nursin g and Respiratory to work together to have patient use every hour while awake. Respiratory t o monitor progress 4 times daily until 75% goal met then turn over to nursing.completed 05/07 Ambulate pt to BR to void, if unable to void bladder scan and straight cath/place lewis per Order. Monitor pt s ain level frequently, adm pain meds as needed per Order. Monitor pt closely,maintain call bolton by bedside, encouraged pt to call prn, place bed alar m as needed. PT intervention and pt education and training. Pt. To participate fully in OT sessions and be receptive to recommendations. Outcome: Improving Goal Evaluation: 1. Pt able to get up to 2000. 2. Pt voiding adequate amount with no problem. 3. Pt pain has been between 6 and 10. Pt complains of abdominal pain. 4. No falls 5.Pt needs modified assistance in the room. Using FWW to ambulate. . Pt has been struggling with abdominal discomfort all day. Medicated pt with pain medicatio n. And Gave all bowel medications. Pt passing gas, but has not had a bowel movement yet. Denton brown continue to monitor. Dr Omer arguelles. lan of [facility] RosaTanya rodriguez COTA - 05/07/2015 2:35 PM PSTProblem: Patient Care Overview (Adult) Goal: Care Team Goals & Evaluation PROBLEM-RELATED GOALS: 1. Will meet 75% of predicted goal for Inspirometer of 2400 by 05/09/14.completed Pt will void adq amts on by 6hr past post-op transfer lewis in place at time of transfer ginette ramos. 05/07/2015 Pts pain will be rated as tolerable by 05/06/2015. Pt will be free from falls through hospital stay 05/07/2015 Pt will be modified inpdt in his room and halls using FWW, safely demonstrated by 05/09/15. 6. Pt. Will be mod(I) with all aspects of his ADLs by 05/10/15 STRATEGY TO ACHIEVE GOALS: 1. Instruct patient in the use of Incentive Spirometry and/or deep breath and cough. Nursin g and Respiratory to work together to have patient use every hour while awake. Respiratory t o monitor progress 4 times daily until 75% goal met then turn over to nursing.completed 05/07 Ambulate pt to BR to void, if unable to void bladder scan and straight cath/place lewis per Dr. Ramos. Monitor pt s ain level frequently, adm pain meds as needed per DR. Ramos. Monitor pt closely,maintain call bolton by bedside, encouraged pt to call prn, place bed alar m as needed. PT intervention and pt education and training. Pt. To participate fully in OT sessions and be receptive to recommendations. Missed Visit Patient Information Patient Name: Raúl Day Date of : 1950 Age: 65 y.o. The patient was unable to be seen for today's scheduled visit due to: Attempted to see pt f or tx and pt unavailable d/t just getting suppository from RN to facilitate bm d/t constipat ion issues/discomfort today. Plan: OT to see pt for tx tomorrow Electronically signed by: BRIANNE Monterroso, 05/07/2015 14:32 lan of Care - Julius Castro RN - 05/07/2015 7:44 AM PSTProblem: Patient Care Overview (Adult) Goal: Care Team Goals & Evaluation PROBLEM-RELATED GOALS: 1. Will meet 75% of predicted goal for Inspirometer of 2400 by 05/09/14. Pt will void adq amts on by 6hr past post-op transfer lewis in place at time of transfer ginette ramos. 05/07/2015 Pts pain will be rated as tolerable by 05/06/2015. Pt will be free from falls through hospital stay 05/07/2015 Pt will be modified inpdt in his room and halls using FWW, safely demonstrated by 05/09/15. 6. Pt. Will be mod(I) with all aspects of his ADLs by 05/10/15 STRATEGY TO ACHIEVE GOALS: 1. Instruct patient in the use of Incentive Spirometry and/or deep breath and cough. Nursin g and Respiratory to work together to have patient use every hour while awake. Respiratory t o monitor progress 4 times daily until 75% goal met then turn over to nursing. Ambulate pt to BR to void, if unable to void bladder scan and straight cath/place lewis per Order. Monitor pt s ain level frequently, adm pain meds as needed per Order. Monitor pt closely,maintain call bolton by bedside, encouraged pt to call prn, place bed alar m as needed. PT intervention and pt education and training. Pt. To participate fully in OT sessions and be receptive to recommendations. Outcome: Improving Goal Evaluation: Don is voiding, using the urinal, adequate amounts which is clear yellow. Incisional pain is well controlled but he has been c/o abdominal pain d/t gas. Dr. Omer ford red Gas X which has helped. He has not had a BM or passing gas, bowel meds are being given. He is ambulating in the halls x2 with FWW but became fatiuged quickly. lan of Care - Keanu Cash, MEDIA SERVICES SPECIALIST - 05/06/2015 11:33 PM PSTProblem: Patient Care Overview (Adult) Goal: Care Team Goals & Evaluation PROBLEM-RELATED GOALS: 1. Will meet 75% of predicted goal for Inspirometer of 2400 by 05/09/14. Pt will void adq amts on by 6hr past post-op transfer lewis in place at time of transfer ginette ramos. 05/07/2015 Pts pain will be rated as tolerable by 05/06/2015. Pt will be free from falls through hospital stay 05/07/2015 Pt will be modified inpdt in his room and halls using FWW, safely demonstrated by 05/09/15. 6. Pt. Will be mod(I) with all aspects of his ADLs by 05/10/15 STRATEGY TO ACHIEVE GOALS: 1. Instruct patient in the use of Incentive Spirometry and/or deep breath and cough. Nursin g and Respiratory to work together to have patient use every hour while awake. Respiratory t o monitor progress 4 times daily until 75% goal met then turn over to nursing. Ambulate pt to BR to void, if unable to void bladder scan and straight cath/place lewis per Order. Monitor pt s ain level frequently, adm pain meds as needed per Order. Monitor pt closely,maintain call bolton by bedside, encouraged pt to call prn, place bed alar m as needed. PT intervention and pt education and training. Pt. To participate fully in OT sessions and be receptive to recommendations. Outcome: Unchanged Goal Evaluation: Pt on R/A sats 96 %, BS clear, IS 1500 lan of Care - Gu Lanie hernandez, OT - 05/06/2015 3:24 PM PST Problem: Patient Care Overview (Adult) Goal: Care Team Goals & Evaluation PROBLEM-RELATED GOALS: 1. Will meet 75% of predicted goal for Inspirometer of 2400 by 05/09/14. Pt will void adq amts on by 6hr past post-op transfer lewis in place at time of transfer ginette ramos. 05/07/2015 Pts pain will be rated as tolerable by 05/06/2015. Pt will be free from falls through hospital stay 05/07/2015 Pt will be modified inpdt in his room and halls using FWW, safely demonstrated by 05/09/15. 6. Pt. Will be mod(I) with all aspects of his ADLs by 05/10/15 STRATEGY TO ACHIEVE GOALS: 1. Instruct patient in the use of Incentive Spirometry and/or deep breath and cough. Nursin g and Respiratory to work together to have patient use every hour while awake. Respiratory t o monitor progress 4 times daily until 75% goal met then turn over to nursing. Ambulate pt to BR to void, if unable to void bladder scan and straight cath/place lewis per Order. Monitor pt s ain level frequently, adm pain meds as needed per Order. Monitor pt closely,maintain call bolton by bedside, encouraged pt to call prn, place bed alar m as needed. PT intervention and pt education and training. Pt. To participate fully in OT sessions and be receptive to recommendations. Occupational Therapy Acute Initial Evaluation Note Patient Information Patient Name: Raúl Day Date of : 1950 Age: 65 y.o. History Encounter Diagnoses Code Name Primary? R26.9 Gait abnormality Yes Date of Onset: 05/05/15 Past Medical History Diagnosis Date Hernia cerebri (HCC) Degenerative disc disease, lumbar Hard of hearing bilateral hearing aids Past Surgical History Procedure Laterality Date Hernia repair Right 1980 El Vasectomy 1983 Toe surgery Right Lumbar spine surgery Bilateral 05/05/2015 Procedure: L3-4, L4-5 Lateral Anterior Interbody Fusion, L5-S1 Transforaminal Lumbar In terbody Fusion, Laminectomy @ L3-4, L4-5, L5-S1; Surgeon: Min Tello MD; Location: [facility] OR No Known Allergies Precautions/Limitations: spinal, falls, brace on when up Left Lower Extremity Weight-Bearing: full weight-bearing Right Lower Extremity Weight-Bearing: full weight-bearing Evaluation SUBJECTIVE: History of Presenting Problem: Raúl Day is a 65 y.o. who presents to therapy for Pt with back and leg pain/sxs for years. January 2015, symptoms worsened an d he is now s/p L3-S1 fusion. Patient is right handed. OT Diagnosis: OT eval. and treat post-op back surgery Previous Level of Function: Ambulation: 1-->assistive equipment Transferrin-->independent Toiletin-->independent Bathin-->independent Dressin-->independent Eatin-->independent Communication: 0-->understands/communicates without difficulty Swallowin-->swallows foods/liquids without difficulty Prior Functional Level Comment: Used cane, also has knee problems. Role/Relationships: Living Environment/Accessibility: Lives With: alone Living Arrangements: house Home Accessibility: no concerns Number of Stairs to Enter Home: 1 Number of Stairs Within Home: 0 Financial Concerns: none Transportation Available: none Living Environment Comment: has a tub/shower with a shower seat, a cane, and is getting a h and held shower head installed, a tall toilet and a grab bar. Has a toilet riser currentl y. Patient s Goals: "I am hoping to go to rehab. at [facility]" OT Visit Summary: OT able to assess his ability to get OOB, and amaury his LSO and underwear . He needed to have help with socks. Pt. changed his gown only at EOB. Stood and was CGA with sit to stand. FWW placed in front of him and he was able to walk over 75 feet, and ret urned to sink where he stood and brushed his teeth, washed his face. He then expressed fee ling light headed, so helped Pt. back to chair. [employer] arrived and made his bed. Pt. agreed to stay up in chair to wait for PT. Occupational Therapy will follow Raúl Day 3 times/wk [facility] from the hospital. Occupational Therapy Anticipated Discharge Needs: Ongoing occupational therapy required. DC disposition TBD. Post discharge occupational therapy recommendation: home health, pt is motivated participa nt, ongoing low intensity therapy Equipment Recommendations: brace, shower chair, 2 wheeled walker (FWW) Identified Problems Needing Skilled Intervention: OT eval. and treat post-op back surgery , aerobic capacity/endurance, gait, locomotion, and balance Planned Interventions:Planned Therapy Interventions: ADL retraining, transfer training, ort hotic fitting/training Patient Status/Goals Reflects last filed data of patient status; may be from multiple contributors. FIM: FIM Self Care Eatin Eating Score Evidence: 7 No Limitations Groomin Grooming Score Evidence: 5 Get Items, 5 Safety Supervison Dressing - Lower Body: 3 Dressing Lower Score Evidence: On/Off L Underwear Leg, Up/ Down Underwear, On/Off R Underwe ar Leg ADLs LB, Level of Dickenson: maximum assist (25% patient effort) Assistive Device: none LB Dressing Assess/Train, Position: sitting, standing LB Dressing Assess/Train, Impairments: strength decreased, pain Grooming, Level of Dickenson: contact guard assist Assistive Device: none Grooming Assess/Train, Position: standing Grooming Assess/Train, Impairments: strength decreased IADLs Therapeutic Exercise Functional Endurance Cognitive Cognitive Tests Bed Mobility Transfers OT able to assist Pt. OOB with to EOB and Log rolling cues. Pt. did not need to use toilet and is not able to shower yet. he was able to stand up at EOB with CGA. Wheelchair Mobility Balance ROM Strength STG Goals Transfer Training Goal, Activity Type: toilet, tub Dickenson Level: modified independence Assistive Device: 2 wheeled walker (FWW) Time to Achieve: by discharge Goal Status: new Grooming Goal, Dickenson Level: modified independence Adaptive Equipment: none Position: standing Time to Achieve: by discharge Goal Status: new Bathing Goal, Dickenson Level: contact guard assist Adaptive Equpiment: grab bars, shower head, detachable, sponge, long handled, shower c hair Time to Achieve: by discharge Goal Status: new LB Dressing Goal, Dickenson Level: contact guard assist Adaptive Equipment: operator cavity pump, dressing stick Time to Achieve: by discharge Goal Status: new LTG Goals Demonstrates need for referral to other service: Assessment: Occupational therapy orders received and acknowledged. Objective impairments i nclude generalized weakness and debility from surgery. These impairments are causing functio nal limitations with patient s inability to be home alone. Complexities contributing to th e need for skilled therapy include ongoing ed. On back precautions and use of A/E to maximiz e functional (I). Prognosis: good, to achieve stated therapy goals Patient and/or family has indicated understanding of treatment needs and actively participa becka in the creation of this plan for care. Today's Treatment Start Time: 45 Stop time: 1035 Time Calculation: 50 minutes Missed Treatment Time: minutes Total Treatment Time: 50 minutes TimedTreatment Code Minutes: 40 minutes Objective: Education: pos-op precautions Treatment Provided: Eval. And treatment initiated. Assessment: Pt was eager to get up OOB and reports he has not been up yet. He was able to sit up and his nausea and lightheadness resolved at EOB. Pt. Motivated to go to in. Rehab but due to unavailability of beds, he is now planning to go to [facility]. Plan for next treatment: 1P. RG. OT to see for ADLs to include a shower once ADY drains pu lled. Electronically signed by: Lanie Kline OT, 05/06/2015 15:18 lan of Care - Be tts, Kameron Ceron MEDIA SERVICES SPECIALIST - 05/06/2015 1:24 PM PSTProblem: Patient Care Overview (Adult) Goal: Care Team Goals & Evaluation PROBLEM-RELATED GOALS: 1. Will meet 75% of predicted goal for Inspirometer of 2400 by 05/09/14. Pt will void adq amts on by 6hr past post-op transfer lewis in place at time of transfer ginette ramos. 05/07/2015 Pts pain will be rated as tolerable by 05/06/2015. Pt will be free from falls through hospital stay 05/07/2015 Pt will be modified inpdt in his room and halls using FWW, safely demonstrated by 05/09/15. STRATEGY TO ACHIEVE GOALS: 1. Instruct patient in the use of Incentive Spirometry and/or deep breath and cough. Nursin g and Respiratory to work together to have patient use every hour while awake. Respiratory t o monitor progress 4 times daily until 75% goal met then turn over to nursing. Ambulate pt to BR to void, if unable to void bladder scan and straight cath/place lewis per Order. Monitor pt s ain level frequently, adm pain meds as needed per Order. Monitor pt closely,maintain call bolton by bedside, encouraged pt to call prn, place bed alar m as needed. PT intervention and pt education and training. Outcome: Improving Goal Evaluation: BS clear and diminished - pt bloated and is having trouble taking deep breaths, works hard with IS Patient achieving 1300 of Predicted Level (mL) : 2400 use encouraged, SpO2 96% on RA , NPC lan of Care - Kle in, Esperanza Glass, PT - 05/06/2015 12:18 PM PST Problem: Patient Care Overview (Adult) Goal: Care Team Goals & Evaluation PROBLEM-RELATED GOALS: Will meet 75% of predicted goal of 2400 by 05/09/14. Pt will void adq amts on by 6hr past post-op transfer lewis in place at time of transfer ginette ramos. 05/07/2015 Pts pain will be rated as tolerable by 05/06/2015. Pt will be free from falls through hospital stay 05/07/2015 Pt will be modified inpdt in his room and halls using FWW, safely demonstrated by 05/09/15. STRATEGY TO ACHIEVE GOALS: Instruct patient in the use of Incentive Spirometry and/or deep breath and cough. Nursing a nd Respiratory to work together to have patient use every hour while awake. Respiratory to m onitor progress 4 times daily until 75% goal met then turn over to nursing. Ambulate pt to BR to void, if unable to void bladder scan and straight cath/place lewis per Dr. Ramos. Monitor pt s ain level frequently, adm pain meds as needed per DR. Ramos. Monitor pt closely,maintain call bolton by bedside, encouraged pt to call prn, place bed alar m as needed. PT intervention and pt education and training. Physical Therapy Acute Initial Evaluation Note Patient Information Patient Name: Raúl Day Date of : 1950 Age: 65 y.o. History Encounter Diagnoses Code Name Primary? R26.9 Gait abnormality Yes Date of Onset: 05/05/15 Past Medical History Diagnosis Date Hernia cerebri (HCC) Degenerative disc disease, lumbar Hard of hearing bilateral hearing aids Past Surgical History Procedure Laterality Date Hernia repair Right 1980 El Vasectomy 1982 Toe surgery Right Lumbar spine surgery Bilateral 05/05/2015 Procedure: L3-4, L4-5 Lateral Anterior Interbody Fusion, L5-S1 Transforaminal Lumbar In terbody Fusion, Laminectomy @ L3-4, L4-5, L5-S1; Surgeon: Min Tello MD; Location: [facility] OR No Known Allergies Precautions/Limitations: spinal, falls, brace on when up Left Lower Extremity Weight-Bearing: full weight-bearing Right Lower Extremity Weight-Bearing: full weight-bearing EVALUATION: SUBJECTIVE: History of Presenting Problem: Raúl Day is a 65 y.o. who presents to therapy for Pt with back and leg pain/sxs for years. January 2015, symptoms worsened an d he is now s/p L3-S1 fusion. PT Diagnosis: Impaired functional mobility Impairments Found: aerobic capacity/endurance, gait, locomotion, and balance Previous Level of Function: Ambulation: 1-->assistive equipment Transferrin-->independent Toiletin-->independent Bathin-->independent Dressin-->independent Eatin-->independent Communication: 0-->understands/communicates without difficulty Swallowin-->swallows foods/liquids without difficulty Prior Functional Level Comment: Used cane, also has knee problems. Living Environment/Accessibility: Lives With: alone Living Arrangements: house Home Accessibility: no concerns Number of Stairs to Enter Home: 1 Number of Stairs Within Home: 0 Financial Concerns: none Transportation Available: none Living Environment Comment: has a tub/shower with a shower seat, a cane, and is getting a h and held shower head installed, a tall toilet and a grab bar. Has a toilet riser currentl y. Patient s Goals: "Relief from feeling bloated" OBJECTIVE : Patient Status/Goals: Reflects last filed data of patient status; may be from multiple contributors. Gait Level of Dickenson : modified independence, supervision required Assistive Device: 2 wheeled walker (FWW) Distance (feet): 125 Stairs NT Transfers Sit-Stand, Level of Dickenson: modified independence Stand-Sit, Level of Dickenson: modified independence [id number], Assistive Device: 2 wheeled walker (FWW) Safety Issues: step length decreased Impairments: coordination impaired, motor control impaired, strength decreased, pain Bed Mobility Assistive Device: bed rails Supine to Sit, Level of Dickenson: not tested Sit to Supine, Level of Dickenson: minimum assist (75% patient effort), verbal cues requ ired Safety Issues: decreased use of legs for bridging/pushing Impairments: pain, strength decreased, coordination impaired, motor control impaired STG GOALS Bed Mobility Goal, Activity Type: supine to sit/sit to supine Dickenson Level: independent Assistive Device: none Time to Achieve: 2 - 3 days Goal Status: new Transfer Training Goal, Activity Type: sit to stand/stand to sit Dickenson Level: modified independence Assistive Device: 2 wheeled walker (FWW) Time to Achieve: 2 - 3 days Goal Status: new Gait Training Goal, Dickenson Level: modified independence Assistive Device: 2 wheeled walker (FWW) Distance: 500 Time to Achieve: 2 - 3 days Goal Status: new Stairs Goal, Dickenson Level: modified independence Assistive Device: (1 rail) Number of Stairs: 4 Time to Achieve: 2 - 3 days Goal Status: new Assessment: Physical therapy orders received and acknowledged. Objective impairments inclu de pain, functional weakness. These impairments are causing functional limitations with shabnam ent s inability to safely mobilize w/o AD. Complexities contributing to the need for skill ed therapy include recent surgery. Rehabilitation potential: Patient demonstrates good potential to achieve established goals to address the documented impairments by participating in skilled physical therapy services . PLAN: bed mobility training, gait training, stair training, postural re-education, orthotic fitti ng/training, transfer training Physical Therapy will follow Raúl Day daily until discharge from therapy or d ischarged from the hospital. Anticipated days that therapy will be provided: 05/09/15 Physical Therapy Anticipated Discharge Needs: Ongoing PT services required. DC disposition TBD. Post discharge physical therapy recommendation: pt is motivated participant Equipment Recommendations: 2 wheeled walker (FWW) Pt has cane and FWW at home. Patient and/or family has indicated understanding of treatment needs and actively participa becka in the creation of this plan for care. Today's Treatment Start Time: 1030 Stop time: 1100 Time Calculation: 30 minutes Missed Treatment Time: minutes Total Treatment Time: 30 minutes TimedTreatment Code Minutes: 20 minutes Objective: Treatment Provided: PT eval/tx completed. Pt demonstrated modified indpt transfers sit/samantha d and safe ambulation in room and halls using FWW, see above. PT reviewed grade B precaution s/postop education. BTB after activity, needing min A for 1 leg into bed. All needs in reach . Education: education, safe mobility Assessment: Pt did well with initial mobility. C/c is "bloating feeling", RN assisting with management. Pt ambulated self into bathroom to attempt urination with FWW. Pt demonstrates ability to be modified indpt in room with FWW, in halls SBA with nrsg. PT to see in am. And progress toward modified indpt level. May need additional rehab/SNF prior to returning home indpt. Plan for next treatment: SMK, FWW, progress toward modified indpt, steps Electronically signed by: Esperanza Bird, PT, 05/06/2015 12:09 lan of Care - Ying Rodriguez, RN - 05/06/2015 10:17 AM PSTProblem: Patient Care Overview (Adult) Goal: Care Team Goals & Evaluation PROBLEM-RELATED GOALS: Will meet 75% of predicted goal of 2400 by 05/09/14. Pt will void adq amts on by 6hr past post-op transfer lewis in place at time of transfer ginette ramos. 05/07/2015 Pts pain will be rated as tolerable by 05/06/2015. Pt will be free from falls through hospital stay 05/07/2015 STRATEGY TO ACHIEVE GOALS: Instruct patient in the use of Incentive Spirometry and/or deep breath and cough. Nursing a nd Respiratory to work together to have patient use every hour while awake. Respiratory to m onitor progress 4 times daily until 75% goal met then turn over to nursing. Ambulate pt to BR to void, if unable to void bladder scan and straight cath/place lewis per Order. Monitor pt s ain level frequently, adm pain meds as needed per Order. Monitor pt closely,maintain call bolton by bedside, encouraged pt to call prn, place bed alar m as needed. Outcome: Improving Goal Evaluation: Working on IS hourly. Pulled lewis this morning at 0900, gave scheduled Flomax. Will monitor for adequate urine o utput. Pain has been well controlled alternating with [place] and muscle relaxant. No falls, calling appropriately. He has voided once so far. Still c/o gas pain and bloating. Simethicone, Tums, warm blanket s and walking encouraged. P M PSTPlan Patricia Cardozo - 05/06/2015 9:43 AM PSTDischarge Planning: Met with Kvng this morning regarding discharge planning: Patient lives alone. He stated, he will have friends coming in to help out. Kvng attended sp ine class and has all the DME equipment needed at home. He uses [facility] for all his DME n eeds. He will have a friend transport him home at discharge. Home health was declined. Plan B. [facility]. Only if needed. SNF option form signed and placed in the ghost chart Electronically signed by: Patricia Dawn 05/06/2015 9:54 lan [facility] Surendra Truong RN - 05/06/2015 7:16 AM PSTProblem: Patient Care Overview (Adult) Goal: Care Team Goals & Evaluation PROBLEM-RELATED GOALS: Will meet 75% of predicted goal of 2400 by 05/09/14. Pt will void adq amts on by 6hr past post-op transfer lewis in place at time of transfer ginette carrizales dr order. 05/07/2015 Pts pain will be rated as tolerable by 05/06/2015. Pt will be free from falls through hospital stay 05/07/2015 STRATEGY TO ACHIEVE GOALS: Instruct patient in the use of Incentive Spirometry and/or deep breath and cough. Nursing a nd Respiratory to work together to have patient use every hour while awake. Respiratory to m onitor progress 4 times daily until 75% goal met then turn over to nursing. Ambulate pt to BR to void, if unable to void bladder scan and straight cath/place lewis per DrLiana Order. Monitor pt s ain level frequently, adm pain meds as needed per DRLiana Order. Monitor pt closely,maintain call bolton by bedside, encouraged pt to call prn, place bed alar m as needed. Goal Evaluation: Pt's lewis draining adq amts of clear dark yellow urine. Pt rating pain as tolerable and t aking 2 percocet with relief and prn muscle relaxer's. Pt sba to min assist from pacu gurney to bed wobbly. Pt calls appropriately. ADY x2 draining a moderaet amt of serosang. Drainage. Strengths strong throughout grading 07/30 lan of Care - Joesph Lockhart RRT - 05/06/2015 4:40 AM PSTProblem: Patient Care Overview (Adult) Goal: Care Team Goals & Evaluation PROBLEM-RELATED GOALS: Will meet 75% of predicted goal of 2400 by 05/09/14. STRATEGY TO ACHIEVE GOALS: Instruct patient in the use of Incentive Spirometry and/or deep breath and cough. Nursing a nd Respiratory to work together to have patient use every hour while awake. Respiratory to m onitor progress 4 times daily until 75% goal met then turn over to nursing. RESTRAINT-RELATED GOALS: STRATEGIES TO ACHIEVE RESTRAINT GOALS: Outcome: Unchanged The patient has a SpO2: 99 % on room air (Removed from 1 L/Min) and is clear throughout. Patient had no complaints with their respiratory effort. He was unable to do his IS. His Predicted Level (mL) : 2400. He does not have a smoking or respiratory history. He did not require additional respiratory care throughout the night. p Note - Ana Tello MD - 05/05/2015 8:37 PM PSTFormatting of this note might be different from the orig inal. Brief Operative Note Raúl Day 65 y.o. male 1950 [id number] Proc. Date 05/05/2015 Preop Dx Scoliosis of lumbar spine, unspecified scoliosis [M41.9] Lumbar flat back syndrome Lumbar degenerative disc disease L5-S1 Lumbar spinal stenosis Lumbar foraminal stenosis Lumbar facet arthropathy Lumbar spondylolisthesis Lumbar radiculopathy Postop Dx same Procedure 1. Minimally invasive lumbar fusion via anterior and posterior approaches 2. Combined posterolateral and posterior interbody arthrodesis L5-S1 3. Anterior lumbar interbody arthrodesis L3-4, L4-5 4. Posterolateral lumbar arthrodesis L3, L4, L5 5. Posterior spinal instrumentation L3-S1 with use of Precept 6. Placement of PEEK interbody spacer L3-4, L4-5 and L5-S1 7. L3 laminectomy, L3-4 facetectomy, L3 and L4 foraminotomy for decompression of L3 and L4 nerves 8. L4 laminectomy, L4-5 facetectomy, L4 and L5 foraminotomy for decompression of L4 and L5 nerves 9. L5 laminectomy, L5-S1 facetectomy, L5 and S1 foraminotomy for decompression of L5 and S1 nerves 10. Microsurgical technique with use of operating microscope Anesthesia , Dr. Reeves Surgeon Min Tello MD - Primary STEVE Ricardo - Assisting EBL 424 Findings L3-S1 kyphosis and scoliosis. Severe facet disease. Good bone. B bracing Complications none Specimens * No specimens in log * Drains Drain/Device Site 05/05/151999 #1 Left lumbar spine (Active) Drain/Device Site 05/05/151999 #2 Right lumbar spine (Active) Operative details: After obtaining consent, the patient was taken to the operating room and placed under gener al anesthesia. He was then positioned in a lateral position with the right side up. He was c onnected to the neurovision neuromonitoring system and secured to the bed with tape. His fac e, neck, chest and extremities positioned and padded appropriately. His flank was prepped a nd draped in standard fashion and a timeout was performed. All members of the surgical team agreed with the timeout. Fluoroscopy was then used to localize the levels of L3-5 on lateral fluoroscopy, and a skin incision was made in the left lateral flank approximately 3 cm in length. Subcutaneous tiss ues were dissected with bovie and blunt dissection to the abdominal wall. The musculature wa s divided with tonsils and then finger sweeping was used to develop the retroperitoneal spac e. An initial dilator was then inserted onto the surface of the psoas at L4-5 and neuromonit oring was performed. The nerves were identified posteriorly at 20. Sequential dilatation and monitor was performed and then a retractor was inserted over the dilators. The light source s were connected and the area was inspected visually and with a ball tip neuro probe. No ner ves were identified. The shelley was then inserted into the posterior blade, and the retractor was opened anteriorly. The disc at L4-5 was then removed in a piecemeal fashion by first incising it and then usin g Clovis, broaches, curretes, and pituitary rongeurs. The endplates were prepared for arthrod esis. Trials were then inserted and a 15 degree by 14 by 22 by 55 mm spacer was determined t o be the appropriate size. A PEEK spacer was prepared filling it with Sim/BMP and then t amping it into the interspace at L4-5. The retractor was then removed obtaining hemostasis a long the tract. An initial dilator was then inserted onto the surface of the psoas at L3-4 and neuromonitor ing was performed. The nerves were identified posteriorly at >20. Sequential dilatation and monitor was performed and then a retractor was inserted over the dilators. The light sources were connected and the area was inspected visually and with a ball tip neuro probe. No nerv es were identified. The shelley was then inserted into the posterior blade, and the retractor w as opened anteriorly. The disc at L3-4 was then removed in similar, piecemeal fashion by first incising it and th en using Clovis, broaches, curretes, and pituitary rongeurs. The endplates were prepared for arthrodesis. Trials were then inserted and a 15 degree by 14 by 22 by 55 mm spacer was deter mined to be the appropriate size. A PEEK spacer was prepared filling it with [place]/BMP and then tamping it into the interspace at L3-4. The retractor was then removed obtaining hemos tasis along the tract. The fascia was then closed with 0 Vicryl sutures, followed by closure of the skin with two layers of 2-0 Quill-type sutures followed by closure of the skin with skin glue. The wound w as dressed with steristrips and a Band-Aid. This completed the anterior approaches at L3-L5 . He was then positioned in a prone position on the Moses axis table with his face, neck, c hest and extremities positioned and padded appropriately. His back was prepped and draped in standard fashion and a timeout was performed. All members of the surgical team agreed with the timeout. This began the posterior approach of the fusion and decompression. Fluoroscopy was then used to localize the level of L3-S1 on lateral fluoroscopy, and then 2 skin incisions were made approximately 5 cm in length, appropoximately 3.75 cm off the midl ine in a paramedian fashion on both sides. Subcutaneous tissues were made hemostatic with Merlin vie cautery. Pedicle cannulas were then guided into pedicles at L3, L4, L5, and S1 using AP fluoroscopic guidance and lateral confirmation. There were no breaches to the canal or the pedicles. Bone marrow was aspirated in the pedicles and then the cannulas were removed aft er cannulating them with K-wires. The wires were secured to the drape. Working between the wires starting on the patient's right side, a METRx tube was docked shaquille n on the L3-4, L4-5, and L5-S1 lamina facet complexes. Bovie cautery was used to expose the lamina of L3, L4, L5, and S1 and the L3-4, L4-5, and L5-S1 facets. High-speed drill was us ed to decorticate the exposed bone, and then morselized local bone autograft obtained from t he drilling and [place]/cancellous chips with bone marrow aspirate were packed in the rivet tapping machine operator olateral aspect of the spine along the decorticated bone. This completed the posterolateral fusion from L3-S1. Attention was then paid to the right and more symptomatic side where a decompression was pe rformed. A METRx tube was docked on the patient's lamina and facet complex and then a high- speed drill was used to drill through the lamina and the pars segment using the microscope f or microsurgical dissection. The drilling allowed for an en bloc removal of the L5 lamina a nd the L5 inferior facet, which was harvested for planned arthrodesis. The S1 superior face t was then removed from the foramen by disconnecting it from its base with a high-speed dril l and removing the fragment with pituitary rongeur. The superior lamina of S1 was removed w ith a Kerrison to decompress with traversing root to its proximal foramen. The ligamentum w as then taken down with a microhook and Kerrison rongeur, decompressing the underlying dura. There was severe disc collapse and severe diffuse epidural scarring. The scar was removed with a microhook and then the disc was opened with an osteotome. Once the disk space could adequately be accessed, pituitary rongeurs, end plate carmine, curettes, and Kerrison ronge urs were used to widen the decompression and perform an aggressive diskectomy. The endplate s were prepared for arthrodesis. The exiting L5 nerve and traversing S1 nerve were then fel t to be free of compression. Trials were then inserted, and a 8 x 30 mm PEEK spacer using Coroent LO 12 degree was deter mined to be the appropriate size. The interspace was packed with cancellous chips/[place] a nd also with morselized local autograft. The PEEK spacer was filled with morselized local b one autograft and BMP. The PEEK spacer was then tamped into the posterior interbody space a nd confirmed to appropriate position on AP and lateral fluoroscopy at L5-S1. Additional bon y materials were then packed lateral to the PEEK spacer. The tubular retractor was then rem roel here, obtaining hemostasis with FloSeal and bipolar cautery. Attention was then paid to the right side at L4-5 where a decompression was performed. A M ETRx tube was docked on the patient's lamina and facet complex and then a high-speed drill w as used to drill through the lamina and the pars segment using the microscope for microsurgi dory dissection. The drilling allowed for an en bloc removal of the L4 lamina and the L4 inf erior facet, which was harvested for planned arthrodesis. The medial aspects of the L5 supe rior facet was then removed using a Kerrison. The superior lamina of L5 was removed with a Kerrison to decompress with traversing root to its proximal foramen connecting the two decom pressions. The ligamentum was then taken down with a microhook and Kerrison rongeur, decomp ressing the underlying dura. There was again epidural scarring taken down microsurgically i n similar fashion. The exiting L4 nerve and traversing L5 nerve were then felt to be free o f compression. Attention was then paid to the right side at L3-4 where a decompression was performed. A M ETRx tube was docked on the patient's lamina and facet complex and then a high-speed drill w as used to drill through the lamina and the pars segment using the microscope for microsurgi dory dissection. The drilling allowed for an en bloc removal of the L3 lamina and the L3 inf erior facet, which was harvested for planned arthrodesis. The medial aspects of the L4 supe rior facet was then removed using a Kerrison. The superior lamina of L4 was removed with a Kerrison to decompress with traversing root to its proximal foramen connecting the three dec ompressions. The ligamentum was then taken down with a microhook and Kerrison rongeur, deco mpressing the underlying dura. There was less scarring present here but its was still mobil ized off the dura to allow better expansion. The exiting L3 nerve and traversing L4 nerve w ere then felt to be free of compression. The previously placed wires were then used for placement of instrumentation. The pedicles were undertapped and then instrumented. 7.5 x 50 mm Precept screws were inserted at L3 and L4. 7.5 x 55 and 8.5 x 45 mm screws were inserted at L5 and S1 bilaterally. The screw towe rs were aligned, and then a 95 mm nasreen was passed through the towers and successfully reduced down bilaterally. Distraction was applied on the right to correct the scoliosis further. Set screws were inserted and then final tightening of the set screws was performed. Then th e towers and nasreen passers were removed fully. Final fluoroscopic images confirmed appropriate placement of instrumentation. 20 mL of exparel was infiltrated into the paraspinous muscles. Epidural blood was evacuated using a METRx tube, two drains were placed over L3-S1, and luciano neled out the skin. The fascia was then closed bilaterally with 0 Vicryl sutures, followed b y closure of the skin with two layers of 2-0 Quill-type sutures. Then 20 mL of 0.5% Marcaine with epinephrine was infiltrated in the back followed by closure of the skin with skin glue . The wounds were dressed with steristrips/Band-Aids. The drains were secured with Band-Aids and Tegaderms. All counts were reported as correct. The patient tolerated the procedure and was transferr ed to the recovery room in stable condition. Electronically signed by: Min Tello MD 05/05/2015 20:33 [facility] rief Op Note - Jaguar Tello MD - 05/05/2015 8:33 PM PSTFormatting of this note might be different from the origin al. Brief Operative Note Raúl Day 65 y.o. male 1950 [id number] Proc. Date 05/05/2015 Preop Dx Scoliosis of lumbar spine, unspecified scoliosis [M41.9] Lumbar flat back syndrome Lumbar degenerative disc disease L5-S1 Lumbar spinal stenosis Lumbar foraminal stenosis Lumbar facet arthropathy Lumbar spondylolisthesis Lumbar radiculopathy Postop Dx same Procedure 1. Minimally invasive lumbar fusion via anterior and posterior approaches 2. Combined posterolateral and posterior interbody arthrodesis L5-S1 3. Anterior lumbar interbody arthrodesis L3-4, L4-5 4. Posterolateral lumbar arthrodesis L3, L4, L5 5. Posterior spinal instrumentation L3-S1 with use of Precept 6. Placement of PEEK interbody spacer L3-4, L4-5 and L5-S1 7. L3 laminectomy, L3-4 facetectomy, L3 and L4 foraminotomy for decompression of L3 and L4 nerves 8. L4 laminectomy, L4-5 facetectomy, L4 and L5 foraminotomy for decompression of L4 and L5 nerves 9. L5 laminectomy, L5-S1 facetectomy, L5 and S1 foraminotomy for decompression of L5 and S1 nerves 10. Microsurgical technique with use of operating microscope Anesthesia , Dr. Reeves Surgeon Min Tello MD - Primary STEVE Ricardo - Assisting EBL 424 Findings L3-S1 kyphosis and scoliosis. Severe facet disease. Good bone. B bracing Complications none Specimens * No specimens in log * Drains Drain/Device Site 05/05/151999 #1 Left lumbar spine (Active) Drain/Device Site 05/05/151999 #2 Right lumbar spine (Active) Electronically signed by: Min Tello MD 05/05/2015 20:33 [facility] Min Tello MD at 016 8:37 PM PSTPlan of Care - Min Goyal, PT - 05/05/2015 6:44 PM PSTProblem: Erin nt Care Overview (Adult) Goal: Care Team Goals & Evaluation PROBLEM-RELATED GOALS: STRATEGY TO ACHIEVE GOALS: RESTRAINT-RELATED GOALS: STRATEGIES TO ACHIEVE RESTRAINT GOALS: Missed Visit Patient Information Patient Name: Raúl Day Date of : 1950 Age: 65 y.o. The patient was unable to be seen for today's scheduled visit due to patient still insurger y [id number]. Plan: Eval tomorrow. Electronically signed by: Min Goyal PT, 05/05/2015 18:43 documented in thi s encounter Plan of Treatment +--------+---------+ + + + | Date | Type | Specialty | Care Team | Description | +--------+---------+ + + + | 01/24/ | Office | Cardiology | Christiano Frost, | | | 2019 | Visit | | [address] | | | | | | [place], | | | | | | [place] [address] | | | | | | [phone] | | | | | | | | +--------+---------+ + + + + +------+--------+ + + | Name | Type | Priori | Associated Diagnoses | Order Schedule | | | | ty | | | + +------+--------+ + + | DME: Walker | DME | Routin | Gait abnormality | DME 1 Time for 1 | | | | e | | Occurrences starting | | | | | | 05/05/2015 until | | | | | | 05/05/2015 | + +------+--------+ + + documented as of this encounter Procedures + +--------+ + + + | Procedure Name | Priori | Date/Time | Associated Diagnosis | Comments | | | ty | | | | + +--------+ + + + | XR LUMBAR SPINE 2 OR | STAT | 05/05/2015 | | Results for this | | 3 VW | | 11:18 PM | | procedure are in the | | | | PST | | results section. | + +--------+ + + + | FL SHEILA STATS NO | Routin | 05/05/2015 | | Results for this | | CHARGE | e | 8:12 PM | | procedure are in the | | | | PST | | results section. | + +--------+ + + + | FUSION LUMBAR W/ | | 05/05/2015 | Scoliosis of | | | LATERAL APPROACH | | 3:12 PM | lumbar spine, | | | (XLIF) | | PST | unspecified | | | | | | scoliosis | | + +--------+ + + + +---+--------+ | | Case | | | Notes | | | | | | Origin | | | al | | | Schedu | | | ler | | | Commen | | | ts/Not | | | es | | | Sent | | | Over | | | 04/08/ | | | 2015 @ | | | | | | 1451:C | | | -ARM, | | | DRILL, | | | | | | MICROS | | | COPE, | | | METRX, | | | XLIF, | | | | | | PRECEP | | | T, | | | TLIF | | | CAGES, | | | BMP, | | | CHIPS, | | | | | | GRAFTO | | | N, | | | XS/30/ | | | 10, | | | JACKSO | | | N AXIS | | | | | | FRAME, | | | | | | NEUROV | | | ISION | | | SIDE: | | | 1: | | | LEFT | | | (LAIF) | | | , 2. | | | RIGHT | | | (TLIF/ | | | DIANA)ES | | | TIMATE | | | D | | | TIME: | | | 4. 5 | | | HOURS | +---+--------+ | | | | | Specia | | | l | | | Needs | | | Michael | | | ([place]as | | | meera) - | | | XLIF, | | | | | | Precep | | | t, | | | TLIF | | | Cages | +---+--------+ documented in this encounter Results XR Lumbar Spine 2 or 3 Vw (05/05/2015 11:18 PM PST) + + | Specimen | + + | | + + + + + | Narrative | Performed At | + + + | XR LUMBAR SPINE 2 OR 3 VW 05/05/2015 11:17 PM HISTORY: post op. | [facility] | | COMPARISON: MRI lumbar spine 09/06/2014. FINDINGS: There has | | | been interval placement of hardware for posterior fusion from L3 | | | through S1 with spacer hardware at these levels. Moderate spondylosis | | | is observed. Bone mineralization is normal. Vertebral body height are | | | preserved with no evidence for compression fractures. Moderate disc | | | narrowing is at L1-2. There is mild disc narrowing at L2-3. Vacuum | | | phenomenon are present at these 2 levels. Facet joints are intact. | | | Visualized ribs and pelvic osseous structures show no acute findings. | | | Mild atherosclerosis is seen. There are 2 right posterior drainage | | | catheters. IMPRESSION - Interval posterior fusion from L3 through | | | S1. Dictated and Signed by: Faisal Nguyen MD Electronically | | | signed: 05/06/2015 10:32 AM | | + + + + + | Procedure Note | + + | Luis, Rad Results In - 05/06/2015 10:35 AM PST XR LUMBAR SPINE 2 OR 3 VW 05/05/2015 | | 11:17 PMHISTORY: post op.COMPARISON: MRI lumbar spine 09/06/2014.FINDINGS:There has been | | interval placement of hardware for posterior fusion from [id number] S1 with spacer | | hardware at these levels. Moderate spondylosis isobserved. Bone mineralization is | | normal. Vertebral body height are preservedwith no evidence for compression fractures. | | Moderate disc narrowing is at L1-2.There is mild disc narrowing at L2-3. Vacuum | | phenomenon are present at these 2levels. Facet joints are intact. Visualized ribs and | | pelvic osseous structuresshow no acute findings. Mild atherosclerosis is seen. There are | | 2 rightposterior drainage catheters.IMPRESSION -Interval posterior fusion from L3 | | through S1.Dictated and Signed by: Faisal Nguyen MD Electronically signed: 05/06/2015 | | 10:32 AM | |There is mild disc narrowing at L2-3. Vacuum phenomenon are present at these 2 | |levels. Facet joints are intact. Visualized ribs and pelvic osseous structures | |show no acute findings. Mild atherosclerosis is seen. There are 2 right | |posterior drainage catheters. | | | |IMPRESSION - | |Interval posterior fusion from L3 through S1. | | | |Dictated and Signed by: Faisal Nguyen MD | | Electronically signed: 05/06/2015 10:32 AM | + + + +---------+ + + | Performing | Address | City/State/Zipcode | Phone Number | | Organization | | | | + +---------+ + + | [facility] | | | | + +---------+ + + [place] [facility] Little No Charge (05/05/2015 8:12 PM PST) + + | Specimen | + + | | + + + + + | Narrative | Performed At | + + + | No Radiologist interpretation, please see Chart Review. | [facility] | + + + + +---------+ + + | Performing | Address | City/State/Zipcode | Phone Number | | Organization | | | | + +---------+ + + | [facility] | | | | + +---------+ + + documented in this encounter Visit Diagnoses + + | Diagnosis | + + | Scoliosis of lumbar spine, unspecified scoliosis | + + documented in this encounter Administered Medications + +--------+ +--------+------+ + | Medication Order | MAR | Action | Dose | Rate | Site | | | Action | Date | | | | + +--------+ +--------+------+ + | bupivacaine (liposomal) | Given | 05/05/19 | 20 mLs | | Surgical | | (EXPAREL) 1.3% injection PRN, | | 16 7:40 | | | Site | | Starting 05/05/15 at 1940, | | PM PST | | | | | Intra-op | | | | | | + +--------+ +--------+------+ + +---+---+ | | | +---+---+ + +-------+ +--------+---+---+ | bupivacaine 0.5%-EPINEPHrine | Given | 05/05/19 | 30 mLs | | | | 1:200,000 injection PRN, | | 16 8:00 | | | | | Starting 05/05/15 at 2000, | | PM PST | | | | | Intra-op | | | | | | + +-------+ +--------+---+---+ +---+---+ | | | +---+---+ documented in this encounter
--- OUTSIDE RECORDS SUMMARY | ~2020-01-09 | XMS | Encounter Summary ---
Demographics + + + | Address | [address] | | | [place] [address] | + + + | Home Phone | | + + + | Preferred Language | Unknown | + + + | Marital Status | Single | + + + | Taoist Affiliation | 1077 | + + + | Race | White | + + + | Ethnic Group | Not or | + + + Author + + + | Author | [facility] | | | and [place] | + + + | Organization | [facility] | | | [...] [place] | | | | | [address] | | + + + + + | Santo Cervantes | ECON | Unknown | | + + + + + Care Team Providers + +------+ + | Care Watch Repair Person Name | Role | Phone | + +------+ + | Shubham Maurer MD | PCP | | + +------+ + Reason for Visit + +--------+ + | Reason | Onset | Comments | | | Date | | + +--------+ + | Knee Pain | 06/10/ | | | | 2015 | | + +--------+ + Encounter Details [...] | | [address] | [place] [address] | | | | | [place] | [phone] | | | | | [address] | | | | | | [phone] | | | +--------+ + + + [...] Notes Telephone Encounter - Sarah Mclean - 06/11/2015 4:01 PM PDTS/P L3-5 fusion 05/05/15 Raúl calls to see when he can restart Diclofenac? He is advised that we recommend that danae porter not take any Nsaid's for 90 days after surgery. He was taking Oxycodone 5/325 mg and it has not been helping to alleviate his knee pain-dis cussed in the office with STEVE Bolanos. Because he is not taking the Oxycodone for lumbar p ost-op pain he will need to discuss management of this medication by his PCP. He verbalized understanding. Suzanne jovel in this encounter Plan of Treatment +--------+---------+ + + + | Date | Type | Specialty | Care Team | Description | +--------+---------+ + + + | 01/24/ | Office | Cardiology | Christiano Frost, | | | 2019 | Visit | | MD [address] | | | | | | [place], | | | | | | [place] [address] | | | | | | [phone] | | | | | | | | +--------+---------+ + + + documented as of this encounter Visit Diagnoses Not on filedocumented in this encounter"
--- OUTSIDE RECORDS SUMMARY | ~2020-01-09 | XMS | Encounter Summary ---
Demographics + + + | Address | [address] | | | [place] [address] | + + + | Home Phone | | + + + | Preferred Language | Unknown | + + + | Marital Status | Single | + + + | Mormon Affiliation | PRO | + + + [...] Team Providers + +------+ + | Care Plunket Nurse Name | Role | Phone | + +------+ + | Shubham Maurer MD | PCP | | + +------+ + Reason for Visit + +--------+ + | Reason | Onset | Comments | | | Date | | + +--------+ + | Phone communication | 02/20/ | | | | 2019 | | + +--------+ + Encounter Details +--------+ + + + + | Date | Type | Department | Care Team | Description | +--------+ + + + + | 02/20/ | Telephone | [facility] | Min Tello MD | Phone communication | | 2019 | | Neurosurgery at [address] | [address] | | | | | [address] | [address] | | | | | [address] | [place] [address] | | | | | [place], [place] | [phone] | | | | | [address] | | | | | | [phone] | | | +--------+ + + + [...] this encounter Miscellaneous Notes Telephone Encounter - Rhianna Rm MA - 02/21/2019 8:19 AM PSTMessage given to DonElectr onically signed by Rhianna Rm MA at 02/21/2019 8:20 AM PSTTelephone Encounter - Bob Luo PA-C - 02/20/2019 3:21 PM PSTWe do not recommend massage. He can use heat or ice but only if he protects the skin from direct contact with the source of the heat or cold.El ectronically signed by Gabe Luo PA-C at 02/20/2019 3:22 PM PSTTelephone Encounter - Svetlana Berger PA-C - 02/20/2019 3:21 PM PSTHe has multilevel cervical spondylosis w ith moderate central stenosis. Neck manipulations are contraindicated. If he has been havi ng massages on his low back, he may continue to do so. He can use ice and/or heat on his neck and shoulders to help w/tension?pain. Please make s ure he protects his skin from the thermal therapy w/towels or fabric. elephone Encounter - Rhianna Rm MA - 02/20/2019 2:48 PM PSTReceived message from answering service Don would like to get a massage before surgery. Not yet scheduled. Please advise. documente d in this encounter Plan of Treatment Not on filedocumented as of this encounter Visit Diagnoses Not on filedocumented in this encounter"
--- OUTSIDE RECORDS SUMMARY | ~2020-01-09 | XMS | Encounter Summary ---
Demographics + + + | Address | [address] | | | [place] [address] | + + + | Home Phone [...] + + + | Author | [facility] | | | and [place] | + + + | Organization | [facility] | | | and [...] [place] | | | | | [address] | | + + + + + | Santo Cervantes | ECON | Unknown | | + + + + + Care Team Providers + +------+ + | Care Elastic Cutter Name | Role | Phone | + +------+ + | Shubham Maurer MD | PCP | | + +------+ + Reason for Visit + +--------+ + | Reason | Onset | Comments | | | Date | | + +--------+ + | Appointment | 10/23/ | | | | 2015 | | + +--------+ + Encounter Details +--------+ + + + + | Date | Type | Department | Care Team | Description | +--------+ + + + + | 10/23/ | Telephone | [facility] | Min Tello MD | Appointment | | 2015 | | NEUROSURGERY [address] | [address] | | | | | [address] | [place] [address] | | | | | [place] | [phone] | | | | | [address] | | | | | | [phone] | | | +--------+ + + + [...] this encounter Miscellaneous Notes Telephone Encounter - Jovan Alford PA-C - 10/24/2015 10:40 AM PDTThe patient frankie breen to have degenerative changes at the 2 levels above his fusion. There may be some sligh t worsening of the narrowing at L1-L2. If he has worsening symptoms he really should be see n in our office. In addition I would like his appointment in January to be with so they can review the images and make further recommendations. elephone Encounter - Darya Vegas Student MA - 10/24/2015 9:53 AM PDTImaging is available on gestigon for review, please advise further . elephone En delma Greene Phoenix T - 10/24/2015 8:55 AM PDTPatient called in her needed to cancel the 11/03 appointment because he will be out of town until then. He would rather just have Chuck Tello review the MRI and xrays that were done at [facility] on the and then just call him if there are any issues. He asked to please call him back to discuss is this is possible.El ectronically signed by Phoenix Greene at 10/24/2015 8:57 AM PDTdocumented in this encounter Plan of Treatment [...] | | | | | | [place] [address] | | | | | | [phone] | | | | | | | | +--------+---------+ + + + documented as of this encounter Visit Diagnoses Not on filedocumented in this encounter"
--- OUTSIDE RECORDS SUMMARY | ~2020-01-09 | XMS | Encounter Summary ---
Demographics + + + | Address | [address] | | | [place] [address] | + + + | Home Phone [...] [place] | | | | | [address] | | + + + + + | Santo Cervantes | ECON | Unknown | | + + + + + Care Team Providers + +------+ + | Care Community Relations Director Name | Role | Phone | [...] | | | | spine, | | [place], [place] | | | | | unspecified | | [address] | | | | | scoliosis | | Phone: | | | | | Scoliosis of | | [phone] | | | | | lumbar | | Fax: | | | | | spine, | | [phone] | | | | | unspecified | | | | | | | scoliosis | | | | | | | [M41.9] | | | | | | | Procedures | | | | | | | [place] | | | | | | | [...] + + | 05/05/ | Hospital | [facility] | Min Tello MD | | | 2016 | Encounter | MED CTR XRAY [address] | | | | | [place] | [place] [address] | | | | | [place] [address] | [phone] | | | | | [phone] | | | +--------+ + + + [...] + + + +---------+ + + | LCK-OLL-Swwmfhg E | Take 2 capsules by | [...] + + + +---------+ + + | [employer]-3 Krill Oil | Take 2 capsules by [...] | | | | | | [place] [address] | | | | | | [phone] | | | | | | | [...]
--- OUTSIDE RECORDS SUMMARY | ~2020-01-09 | XMS | Encounter Summary ---
Demographics + + + | Address | [address] | | | [place] [address] | + + + | Home Phone [...] Author + + + | Author | [facility] | | | and [place] | + + + | Organization | [facility] | | [...] [place] | | | | | [address] | | + + + + + | Santo Cervantes | ECON | Unknown | | + + + + + Care Team Providers + +------+ + | Care Condominium Association Manager Name | Role | Phone | + +------+ + | Shubham Maurer MD | PCP | | + +------+ + Encounter Details +--------+ + + + + | Date | Type | Department | Care Team | Description | +--------+ + + + + | 03/05/ | Orders Only | [facility] | Min Tello MD | Lumbar radiculopathy | | 2015 | | NEUROSURGERY [address] | [address] | (Primary Dx); Other | | | | [address] | [place] [address] | secondary | | | | [place] | [phone] | scoliosis, lumbar | | | | [address] | | region; Degenerative | | | | [phone] | | disc disease, | | | [...] | | | | | | [place] [address] | | | | | | [phone] | | | | | | | | +--------+---------+ + + + documented as of this encounter Results ECG 12 lead (03/26/2015 [...] | | | | MARYAM VILLALPANDO MD ([id number]) | | | | | | on [...] | | + +---------+ + + XR Chest PA and Lateral (03/26/2015 11:55 [...] + | Luis, Rad Results In - 03/26/2015 1:35 PM PST [...] + | [facility] | [address] | [place] | [phone] | | [facility] | | [address] | | | - IMAGING | | | | + + + + + CBC with Differential (03/26/2015 11:40 AM PST) + + + + + + | Component | Value | Ref Range | Performed | Pathologist | | | | | At | Signature | + + + + + + | White Blood | 6.1 | 4.0 - 11.0 K/uL | [facility] | | | Cells | | | [facility] | | | | | | [facility] | | | | | | C[facility] - | | | | | | LABORATORY | | + + + + + + | Red Blood | 5.41 | 4.30 - 5.70 | [facility] | | | Cells | | M/uL | [facility] | | | | | | MEDICAL | | | | | | CENTER - | | | | | | LABORATORY | | + + + + + + | Hemoglobin | 15.2 | 13.5 - 18.0 | [facility] | | | | | g/dL | [facility] | | | | | | [...] [address] | [place] | [phone] | | [facility] | | [address] | | | - LABORATORY | | [...] (H) | 7 - 18 mg/dL | [facility] | | | | | [...] | + +--------+ + + + | eGFR, | >60 | >=60 | [facility] | | | non- | | mL/min/1.73m2 | [facility] | | | [facility] | | | MEDICAL | | | [...] ST. | [address] | [place] | [phone] | | [facility] | | [address] | | | - LABORATORY | | | | + + + + + documented in this encounter Visit Diagnoses + + | Diagnosis | + + | Lumbar radiculopathy - Primary Thoracic or lumbosacral neuritis or radiculitis, | | unspecified | + + | Other secondary [...]
--- OUTSIDE RECORDS SUMMARY | ~2020-01-09 | XMS | Clinical Summary ---
Demographics + + + | Address | [address] | | | [place] [address] | + + + | Home Phone | | + + + | Preferred Language | Unknown | + + + | Marital Status | Single | + + + | Adventist Affiliation | PRO | + + + | Race | Unknown | + + + | Ethnic Group | Not or | + + + Author + + + | Author | [facility] | + + + | Organization | [facility] | + + + | Address | Unknown | + + + | Phone | Unavailable | + + + Support + + +---------+ + | Name | Relationship | Address | Phone | + + +---------+ + | Ron Day | ECON | Unknown | | + + +---------+ + Care Team Providers + +------+ + | Care Vascular Surgery Physician Name | Role | Phone | + +------+ + | Shubham Maurer MD | PCP | | + +------+ + Source Comments [facility] is fully live on both [facility] and [facility] In[facility] Allergies No Known Allergies Medications No known medications Active Problems + + + | Problem | Noted Date | + + + | DDD (degenerative disc disease), cervical | 01/09/2019 | + + + | Cervical spondylosis with radiculopathy | 01/09/2019 | + + + | Cervical stenosis of spinal canal | 01/09/2019 | + + + | Spinal osteoarthritis | 01/09/2019 | + + + Family History + + +------+ + | Medical History | Relation | Name | Comments | + + +------+ + | Cancer | Father | | | + + +------+ + + +------+--------+ + | Relation | Name | Status | Comments | + +------+--------+ + | Father | | | | + +------+--------+ + Social History + +-------+ +--------+------+ | [...] on file | | + + + Last Filed Vital Signs + + + [...] | | + + + + + Plan of Treatment + + + + + | Health Maintenance | Due Date | Last | Comments | | | | Done | | + + + + + | Influenza (Flu) | | 11/27/19 | | | vaccination (#1) | 0 | 18, | | | | | 12/18/19 | | | | | 17, | | | | | 12/07/19 | | | | | 15, | | | | | Addition | | | | | al | | | | | history | | | | | exists | | + + + + + | Pneumococcal | Completed | 12/25/19 | | | vaccination | | 14, | | | | | 07/31/19 | | | | | 14 | | + + + + + Results Not on filefrom Last 3 Months Insurance + +--------+ +--------+ + +--------+ | Payer | Benefi | Subscriber | Effect | Phone | Address | Type | | | t Plan | ID | meera | | | | | | / | | Dates | | | | | | Group | | | | | | + +--------+ +--------+ + +--------+ | MEDICARE | MEDICA | [id number] | Effect | [phone] | [address] | [address] | | | RE A & | | meera | [address] | [phone] | [address] | | | B | | for | | [place], [place] | | | | | | all | | [phone] | | | | | | dates | | | | + +--------+ +--------+ + +--------+ | | TRICAR | [id number] | | [phone] | | Indemn | | | E 4 | | 019-Pr | 8 | | ity | | | LIFE | | esent | | | | + +--------+ +--------+ + +--------+ + +--------+ +--------+ + + | Guarantor Name | Accoun | Relation to | Date | Phone | Billing Address | | | t Type | Patient | of | | | | | | | | | | + +--------+ +--------+ + + | Raúl Day | Person | Self | [birth year] | [address] | | | [place] | | 1951 | [phone] | [place] [address] | | | [place] | | | 2 (Home) | | + +--------+ +--------+ + +
--- OUTSIDE RECORDS SUMMARY | ~2020-01-09 | XMS | Encounter Summary ---
Demographics + + + | Address | [address] | | | [place] [address] | + + + | Home Phone [...] Author + + + | Author | [facility] | | | and [place] | + + + | Organization | [facility] | | | [...] [place] | | | | | [address] | | + + + + + | Santo Cervantes | ECON | Unknown | | + + + + + Care Team Providers + +------+ + | Care Real Estate Subagent Name | Role | Phone | + +------+ + | Shubham Maurer MD | PCP | | + +------+ + Reason for Visit + +--------+ + | Reason | Onset | Comments | | | Date | | + +--------+ + | Medication Question | 10/01/ | | | | 2020 | | + +--------+ + Encounter Details +--------+ + + + + | Date | Type | Department | Care Team | Description | +--------+ + + + + | 10/01/ | Telephone | [facility] | Wendy Kasper | Medication Question | | 2019 | | CARDIOLOGY [place], Erp Business Analyst | | | | | [address] | | | | | | [place] | | | | | | [address] | | | | | | [phone] | | | +--------+ + + + [...] this encounter Miscellaneous Notes Telephone Encounter - Wendy Kasper Medical Assistant - 10/02/2019 1:19 PM PDTPt ret urned call. I relayed message to patient. No questions or concerns. He states understanding of plan. El ectronically signed by Kanu Dimas at 10/02/2019 1:20 PM PDTTeleph one Encounter - Wendy Kasper Medical Assistant - 10/02/2019 10:29 AM PDTCalled pt. No answer. LVM asking for return call. Clinic number was given. el ephone Encounter - Wendy Kasper Medical Assistant - 10/02/2019 10:29 AM PDT----- Mess age from Adela Tavares MD sent at 10/01/2019 6:05 PM PDT ----- 1. Yes he can use the same holding parameters for verapamil as metoprolol 2. It seems these are the same symptoms for which she was evaluated in the ER previously p er Dr. Frost notes. If this is due to A. fib/flutter that will likely improve after his card ioversion scheduled on 10/12/2019. If symptoms are significantly worse since his last office visit and he wants to be seen before his cardioversion he can be scheduled in our office wi th the earliest available provider. Or he may have to go to the ER. Otherwise I would janet mmend he wait till his cardioversion. ----- Message ----- From: Wendy Kasper Erp Business Analyst Sent: 10/01/2019 10:09 AM PDT To: MD Dr. Margot Parikh out this week. Pt has a couple medication questions. 1. Metoprolol succinate 25mg was d/c and changed to verapamil 120. When he was taking metoprolol and if his pulse was below 60 he was not to take it. If his s ystolic was less than 100 he was not to take it. He is wondering if this is still how he is to take the verapamil. 2. He is still still having SOB because of the a flutter he believes. He has a cough with t he SOB. The symptoms come and go but has them no matter if he exerting himself or not. Please advise. Please see HPI below from last OV with Dr. Frost; "Mr. Desir came to the office today for a cardiology evaluation. He was transferred [facility] to [facility] in [place] 09/03/2019 for an acute righ t-sided CVA. He had noted tingling in his left forearm earlier in the day, and developed le ft hand weakness, dropping his cell phone and objects. He was noted to have new onset atria l flutter with a controlled ventricular rate, but because of the acute watershed stroke in t he borderline between the right anterior and middle cerebral arteries, with multiple small i n acute acute infarcts noted on a brain MRI, oral anticoagulation was withheld initially. Glenis porter was treated with Plavix, which he is still taking, although he is now also on Eliquis, whi ch was started 09/09/19. The stroke could have been caused by this, or possibly from the 50- 79% stenosis that was found in the proximal right internal carotid artery, treated with a ca rotid stent on 09/06/2019. Records were reviewed. He had transient postoperative hypotensio n that resolved. He was discharged on Plavix and atorvastatin. He was seen in the [facility] ER 09/16/2019 for shortness of breath, which occurs with or without exertion, along with a cough, which began when he was started on metoprolol. This is still persistent, although there is no orthopnea, PND or edema. He has no history of asthma, but I suspect that the metoprolol has triggered mild, latent bronchospasm, altho ugh I do not hear any wheezing today. He had mild lightheadedness, which responded to decre asing the dose of metoprolol from 50 mg down to 25 mg. I stopped it today, and changed him to verapamil 120 mg daily. He will be scheduled for an elective DC cardioversion on , 10/12/2019. After this, he will have a 30-day event monitor, and if there is no recurren t atrial flutter, we could consider stopping his Eliquis. If there is evidence of recurrent flutter, he would appear to be a good candidate for an electrophysiology evaluation and flu tter ablation. DC Cardioversion: the procedure, with its associated alternatives, benefits, and risks, th e latter including but not limited to the associated risks of moderate anesthesia/sedation,s troke, etc. were discussed in detail. No guarantees were given. All questions were answe red. The patient verbalized understanding and gave informed consent for the procedure. Soumya quate use of anticoagulation therapy was confirmed prior to the procedure. I will see him back in the [place] office, after the 30-day monitor." [facility] umkrystin in this encounter Plan of Treatment +--------+---------+ + + + | Date | Type | Specialty | Care Team | Description | +--------+---------+ + + + | 01/24/ | Office | Cardiology | Christiano Frost, | | | 2019 | Visit | | MD [address] | | | | | | [place], | | | | | | [place] [address] | | | | | | [phone] | | | | | | | | +--------+---------+ + + + documented as of this encounter Visit Diagnoses Not on filedocumented in this encounter
--- OUTSIDE RECORDS SUMMARY | ~2020-01-09 | XMS | Encounter Summary ---
Demographics + + + | Address | [address] | | | [place] [address] | + + + | Home Phone [...] [place] | | | | | [address] | | + + + + + | Santo Cervantes | ECON | Unknown | | + + + + + Care Team Providers + +------+ + | Care Inspector Rubber Stamp Die Name | Role | Phone | + +------+ + | Shubham Maurer MD | PCP | | + +------+ + Encounter Details +--------+ + + + + | Date | Type | Department | Care Team | Description | +--------+ + + + + | 06/15/ | Hospital | [facility] | Jovan Alford | Canceled (OTHER) | | 2017 | Encounter | MED CTR XRAY [address] | [address] | | | | | [place] | [address] [place] [address] | | | | | [place] [address] | [address] | | | | | [phone] | | | +--------+ + + + [...] | + + + +---------+--------+ + | [place]-3 Fatty | Take 2 capsules by | [...] [place], | | | | | | [place] [address] | | | | | | [phone] | | | | | | | | +--------+---------+ + + + documented as of this encounter Visit Diagnoses Not on filedocumented in this encounter"
--- OUTSIDE RECORDS SUMMARY | ~2020-01-09 | XMS | Encounter Summary ---
Demographics + + + | Address | [address] | | | [place] [address] | + + + | Home Phone [...] + | Author | [facility] | | | and [place] | + + + | Organization | [facility] | | | and [...] [place] | | | | | [address] | | + + + + + | Santo Cervantes | ECON | Unknown | | + + + + + Care Team Providers + +------+ + | Care Stone Cleaner Name | Role | Phone | + +------+ + | Shubham Maurer MD | PCP | | + +------+ + Encounter Details +--------+ + + + + | Date | Type | Department | Care Team | Description | +--------+ + + + + | 04/28/ | Orders Only | [facility] | Jovan Alford | Lumbar radiculopathy | | 2016 | | NEUROSURGERY [address] | [address] | (Primary Dx); S/P | | | | [address] [place] | lumbar fusion | | | | [place] | [address] | | | | | [address] | | | | | | [phone] | | | +--------+ + + + [...] | | | | | | [place] [address] | | | | | | [phone] | | | | | | | | +--------+---------+ + + + documented as of this encounter Results XR Lumbar Spine 2 or 3 Vw (06/04/2015 11:24 AM PST) + + | Specimen | [...] through S1 with spacer hardware at these [facility] | | levels. Moderate spondylosis is observed. [...] + | [facility] | [address] | [place], [place] | [phone] | | [facility] | | [address] | | | - IMAGING | | [...]
--- OUTSIDE RECORDS SUMMARY | ~2020-01-09 | XMS | Encounter Summary ---
Demographics + + + | Address | [address] | | | [place] [address] | + + + | Home Phone [...] | Author | [facility] | | | and [place] | + + + | Organization | [facility] | | | and [...] + | Yung Vivar | ECON | [place] | | | | | [address] | | + + + + + | Santo Cervantes | ECON | Unknown | | + + + + + Care Team Providers + +------+ + | Care Snuff Maker Name | Role | Phone | + +------+ + | Shubham Maurer MD | PCP | | + +------+ + Encounter Details +--------+ + + + + | Date | Type | Department | Care Team | Description | +--------+ + + + + | 03/26/ | Hospital | [facility] | Min Tello MD | Lumbar | | 2015 | Encounter | MED CTR XRAY [address] | [address] | radiculopathy; Other | | | | [place] | [place] [address] | secondary | | | | [place] [address] | [phone] | scoliosis, lumbar | | | | [phone] | | region; Degenerative | | | | | Ron Montero MD | disc disease, | | | | | [address] [facility] | lumbar; Facet | | | | | [place] | arthropathy, lumbar; | | | | | [address] | Lumbar spinal | | | | [...] | + + + +---------+--------+ + | TBC-PLY-Mdyncyi E | Take 2 capsules by | [...] | + + + +---------+--------+ + | [place]-3 Krill Oil | Take 2 capsules by [...] | | | | | | [place] [address] | | | | | | [phone] | | | | | | | [...] + + | [address] | [address] | [place] | [phone] | | [facility] | | [address] | | | - IMAGING | | [...]
--- OUTSIDE RECORDS SUMMARY | ~2020-01-09 | XMS | Encounter Summary ---
Demographics + + + | Address | [address] | | | [place] [address] | + + + | Home Phone | | + + + | Preferred Language | Unknown | + + + | Marital Status | Single | + + + | Mandaen Affiliation | 1077 | + + + | Race | White | + + + | Ethnic Group | Not or | + + + Author + + + | Author | [facility] | | | and [place] | + + + | Organization | [facility] | | [...] [place] | | | | | [address] | | + + + + + | Santo Cervantes | ECON | Unknown | | + + + + + Care Team Providers + +------+ + | Care Sample Box Maker Name | Role | Phone | + +------+ + | Shubham Maurer MD | PCP | | + +------+ + Encounter Details +--------+ + + + + | Date | Type | Department | Care Team | Description | +--------+ + + + + | 10/09/ | Orders Only | [facility] | Jovan Alford | Lumbar | | 2016 | | NEUROSURGERY [address] | [address] | radiculopathy; | | | | [address] [place], [place] | Spinal stenosis, | | | | [place], [place] | [address] | lumbar; DDD | | | | [address] | | (degenerative disc | | | | [phone] | | disease), lumbar | +--------+ + [...] | | | | | | [place] [address] | | | | | | [phone] | | | | | | | [...]
--- OUTSIDE RECORDS SUMMARY | ~2020-01-09 | XMS | Encounter Summary ---
Demographics + + + | Address | [address] | | | [place] [address] | + + + | Home Phone | | + + + | Preferred Language | Unknown | + + + | Marital Status | Single | + + + | Evangelical Affiliation | 1077 | + + + | Race | White | + + + | Ethnic Group | Not or | + + + Author + + + | Author | [facility] | | | and [place] | + + + | Organization | [facility] | | | [...] [place] | | | | | [address] | | + + + + + | Santo Cervantes | ECON | Unknown | | + + + + + Care Team Providers + +------+ + | Care Acid Correction Hand Name | Role | Phone | + +------+ + | Atul Adkins MD | PCP | | + +------+ + Encounter Details +--------+ + + + + | Date | Type | Department | Care Team | Description | +--------+ + + + + | 11/29/ | [facility] | [facility] | Min Tello MD | Other back pain | | 2014 | Encounter | MED CTR XRAY [address] | | | | | [place] | [place] [address] | | | | | [place] [address] | [phone] | | | | | [phone] | | | +--------+ + + + [...] | + + + +---------+--------+ + | LZO-NYJ-Cfwxmrs E | Take 2 capsules by | [...] | + + + +---------+--------+ + | [place]-3 Krill Oil | Take 2 capsules by [...] | | | | | | [place] [address] | | | | | | [phone] | | | | | | | [...] + + | [address] | [address] | [place] | [phone] | | [facility] | | [address] | | | - IMAGING | | | | + + + + + documented in this encounter Visit Diagnoses + + | Diagnosis | + + | Other back pain | + + documented in this encounter"
--- OUTSIDE RECORDS SUMMARY | ~2020-01-09 | XMS | Encounter Summary ---
Demographics + + + | Address | [address] | | | [place] [address] | + + + | Home Phone [...] Author + + + | Author | [facility] | | | and [place] | + + + | Organization | [facility] | | [...] [place] | | | | | [address] | | + + + + + | Santo Cervantes | ECON | Unknown | | + + + + + Care Team Providers + +------+ + | Care Cushion Former Name | Role | Phone | + +------+ + | Atul Adkisn MD | PCP | | + +------+ [...] | | | Lumbar pain | Atul | MD [address] | | | | | Procedures | MD [address] | | | | | [place] OFFICE | [address] | [place], [place] | | | | | CONSULTATION | [address] | [address] | | | | | NEW/ESTAB | [place], | Phone: | | | | | PATIENT 58 | [place] | [phone] | | | | | MIN | [address] | Fax: | | | | | | Phone: | [phone] | | | | | | [phone] | | | | | | | Fax: | | | | | | | [phone] | | +--------+--------+ + + + + [...] | | [address] | [place] [address] | presence unspecified | | | | [place] | [phone] | (Primary Dx); | | | | [address] | | Lumbar scoliosis; | | | | [phone] | | Degenerative disc | | | [...] You can research this procedure more at: [email or web address] Choose your Diagnosis first and then choose XLIF and TLIF under the [employer] link. documented in this encounter Progress Notes Min Tello MD - 11/29/2014 12:21 PM PDTFormatting of this note might be different from t he original. Min Tello MD [address] [facility] [address] [place], [place] [address] FAX: NEUROSURGERY HISTORY AND PHYSICAL EXAMINATION CHIEF [...] capsule Take 1,000 Units by mouth Daily. BGK-HKI-Tqxfoda E (OMEGA-3 COMPLEX PO) Take 2 capsules by mouth Daily. diclofenac (VOLTAREN) 75 mg EC tablet Take 75 mg by mouth 2 times daily. FERROUS SULFATE PO Take by mouth Daily. [place]-3 Krill Oil 500 MG CAPS Take 1 [...] has no apparent deficits with short or senior living memory. CRANIAL NERVES: II: Acuity is intact. [...] Intrinsics 5 5 Ulnar Intrinsics 5 5 Cell Preparer Strength 5 5 Hip Flexion 5 5 [...] DR | | | | | | [place], | | | | | | [place] [address] | | | | | | [phone] | | | | | | | [...]
--- OUTSIDE RECORDS SUMMARY | ~2020-01-09 | XMS | Encounter Summary ---
Demographics + + + | Address | [address] | | | [place] [address] | + + + | Home Phone [...] | Author | [facility] | | | and [place] | + + + | Organization | [facility] | | | [...] | + + + + + | Yugn Vivar | ECON | [place] | | | | | [address] | | + + + + + | Santo Cervantes | ECON | Unknown | | + + + + + Care Team Providers + +------+ + | Care Shoe Salesperson Name | Role | Phone | + [...] | | | | spine, | | [place], [place] | | | | | unspecified | | [address] | | | | | scoliosis | | Phone: | | | | | Scoliosis of | | [phone] | | | | | lumbar | | Fax: | | | | | spine, | | [phone] | | | | | unspecified | | | | | | | scoliosis | | | | | | | [M41.9] | | | | | | | Procedures | | | | | | | [place] | | | | | | | [...] | | | | | [address] | [address] [place] | | | | | [place] | [address] | | | | | [address] | | | | | | [phone] | Nolberto Villavicencio MD | | | | | | [address] | | | | | | [place] | | | | | | [address] | | | | | | | | +--------+ + + + + Anesthesia Record + + + + + | Procedure Name | Responsible | Anesthesia Start | Anesthesia Stop Time | | | Anesthesiologist | Time | | + + + + + | L3-4, L4-5 Lateral | Anand Reeves, | 05/05/15 1529 | 05/05/152046 | [...] +----+---+ + + | | 1 | Belpre | | | | 5 | 43-degrees | | | | 5 | | | | | 9 | | | +----+---+ + + | | 1 | First | | | | 6 | Inc/Proc St | | | | 0 | | | | | 1 | | | +----+---+ + + | | 1 | Belpre off | | | | 6 | | | | | 5 | | | | | 7 | | | +----+---+ + + | | 1 | [place]pre | | | | 7 | 38-degrees | | | | 1 | | | | | 1 | | | +----+---+ + + | | 2 | Belpre off | | | | 0 | [...] + + | Periph | 05/05/15; 1412; [id number] | 05/05/15 1412 by | 05/08/15 1036 [...] + + + | Read | 05/05/15; 161; Bilateral; back; | 05/05/151613 by | 05/08/15 1044 by [...] | | | | catheter removed; 05/06/15; 0900 | | | +--------+ + + + [...] + + documented as of this encounter [place] Notes Anesthesia Postprocedure Evaluation - Anand Reeves MD - 05/05/2015 9:05 PM PSTForma tting of this note might be different from the original. ANESTHESIA POSTANESTHESIA EVALUATION Raúl Day 65 y.o. male 1950 [id number] Procedure(s) L3-4, L4-5 Lateral Anterior Interbody Fusion, L5-S1 Transforaminal Lumbar Int erbody Fusion, Laminectomy @ L3-4, L4-5, L5-S1 (Bilateral Spine Lumbar) Filed Vitals: 05/05/15205205/05/15205305/05/152054 BP: 117/69 Pulse: 84 84 92 Temp: Resp: 11 12 16 SpO2: 98% 98% 98% Cooperates? Yes Mental Status Performs simple tasks. Respiratory Satisfactory - Airway patent (self maintained). Cardiovascular Satisfactory Blood pressure and heart rate acceptable Temperature Satisfactory 37.2F Pain Satisfactory N/V Control Satisfactory Hydration Satisfactory No signs of dehydration Complications None apparent Electronically signed by Anand Reeves MD 05/05/2015 21:05 [facility] nesthesia Preproc edure Evaluation - Nolberto Villavicencio MD - 05/05/2015 1:01 PM PSTFormatting of this note migdanae t be different from the original. ANESTHESIA PREANESTHESIA EVALUATION Raúl Day 65 y.o. male 1950 [id number] Procedure(s): L3-4, L4-5 Lateral Anterior Interbody Fusion, L5-S1 Transforaminal Lumbar Int erbody Fusion, Laminectomy @ L3-4, L4-5, L5-S1 (Bilateral ) Medical history, anesthesia, medications, allergy, NPO status verified histories reviewed. ECG reviewed. Labs reviewed. Review of Systems / Med History Anesthesia History (-) PONV, difficult intubation, malignant hyperthermia . Cardiovascular (-) past [place]. Exercise tolerance >4 METS. Pulmonary No acute pulmonary concerns.. Neurology (+) back pain.(-) CVA. Renal (-) chronic renal insufficiency Gastrointestinal/Hepatic (-) reflux/GERD. Endocrine (-) Diabetes. Physical Exam Airway MP II, TM >3 FB, Mouth opening >2 FB. Neck: full ROM, extends >30 degrees. Dental Shabbir ssly normal except where noted below.; (+) Chipped/Broken teeth. CV Rhythm regular. Rate Normal. (-) murmur. Pulm Clear to auscultation bilaterally. Neuro Grossly normal. Anesthesia Plan ASA 2 Type: General. Induction: Intravenous. Potential problems: None anticipated. Monitors: Standard ASA monitors. Consent statement:Anesthetic plan, alternatives, risks and benefits discussed with patient. Risks discussed included (but were not limited to): sore throat, nausea, heart problems, re spiratory events, pain, perioperative CV events, . Consenting person understands and agrees to proceed. PARQ. Multimodal pain control to supplement opioids up to and including ketamine and dexmedetomid ine as hemodynamically tolerated. . documented in this en counter Plan of Treatment +--------+---------+ + + + | Date | Type | Specialty | Care Team | Description | +--------+---------+ + + + | 01/24/ | Office | Cardiology | Christiano Frost, | | | 2019 | Visit | | MD [address] | | | | | | [place], | | | | | | [place] [address] | | | | | | [phone] | | | | | | | [...] 100 mcg | | | | Starting 05/05/15 at 1529, | | 16 7:27 | [...] | +---+---+ + +-------+ +--------+---+---+ | glycopyrrolate (ROBINUL) | Given | 05/05/19 | 0.2 mg [...] 4:15 | | | | | Starting Tue05/05/15 at 1601, | | PM PST | [...] | | | PRN, Starting 05/05/15 at 1545, | | 16 4:15 | [...] | | | PRN, Starting Tue05/05/15 at 1536, | | 16 3:36 | [...] 16 3:47 | | | | | Tue05/05/15 at 1547, Anesthesia | | PM PST | | | | | Intra-op | | | | | | + +-------+ +------+---+---+ +---+---+ | | | +---+---+ + +-------+ +---------+---+---+ | phenylephrine (KARINA-SYNEPHRINE) | Given | 05/05/19 | 100 mcg | | | | 10 mg/mL injection Intravenous, | | 16 8:17 | | | | | PRN, Starting Tue05/05/15 at 1536, | | PM PST | [...] +-------+---+---+ | succinylcholine (ANECTINE) | Given | 05/05/19 | 80 mg | | | | injection Intravenous, PRN, | | 16 3:36 | | | | | Starting 05/05/15 at 1536, | | PM PST | | | | | Anesthesia Intra-op | | | | | | + +-------+ +-------+---+---+ +---+---+ | | | +---+---+ documented in this encounter"
--- OUTSIDE RECORDS SUMMARY | ~2020-01-09 | XMS | Encounter Summary ---
Demographics + + + | Address | [address] | | | [place] [address] | + + + | Home Phone [...] + + + | Author | [facility] | | | and [place] | + + + | Organization | [facility] | | [...] [place] | | | | | [address] | | + + + + + | Santo Cervantes | ECON | Unknown | | + + + + + Care Team Providers + +------+ + | Care Traffic Analysis Technician Name | Role | Phone | [...] | | | | Diagnoses | | [place], | | | | | Atrial | | Christiano Glass MD | | | | | flutter, | | [address] | | | | | unspecified | | [address] | | | | | type (HCC) | | [place] | | | | | Procedures | | [place] | | | | | [place] | | [address] Phone: | | | | | CARDIOVERSIO | | [phone] | | | | | N ELECTIVE | | Fax: | | | | | ARRHYTHMIA | | [phone] | | | | | EXTERNAL CV | | | | | | | EP | | | | | | | CARDIOVERSIO | | | | | | | N | | | +--------+--------+ + + + + Encounter Details +--------+---------+ + + + | Date | Type | Department | Care Team | Description | +--------+---------+ + + + | 10/11/ | Surgery | [facility] | Christiano Frost, | Canceled CV | | 2019 | | CENTER CV INTRA OP | [address] | Incomplete Procedure | | | | [address] | [place], | | | | | [place] | [place] [address] | | | | | [address] | [phone] | | | | | [phone] | | | +--------+---------+ + + + [...] + + + | Blood Pressure | 124/65 | 10/12/2019 6:54 AM | | | | | PDT | | + + + + + | Pulse | 69 | 10/12/2019 6:54 AM | | | | | PDT | | + + + + + | Temperature | 36.2 C (97.2 F) | 10/12/2019 6:54 AM | | | | | PDT | | + + + + + | Respiratory Rate | 18 | 10/12/2019 6:54 AM | | | | | PDT | | + + + + + | Oxygen Saturation | 99% | 10/12/2019 6:54 AM | | | | | PDT | | + + + + + | Inhaled Oxygen | - | - | | | Concentration | | | | + + + + + | Weight | 83.3 kg (183 lb 10.3 | 10/12/2019 6:54 AM | | | | oz) | PDT | | + + + + + | Height | 172.7 cm (5' 8") | 10/12/2019 6:54 AM | | | | | PDT | | + + + + + | Body Mass Index | 27.92 | 10/12/2019 6:54 AM | | | | | PDT | | + + + + + documented in this encounter Medications at Time of Discharge + + + +---------+ + + | Medication | Sig | Dispensed | Refills | Start | End Date | | | | | | Date | | + + + +---------+ + + | apixaban (ELIQUIS) | Take 5 mg by mouth 2 | | 0 | | | | 5 mg tablet | times daily. | | | | | + + [...] + + + +---------+ + + | atorvaSTATin | Take 80 mg by mouth | | 0 | | | | (LIPITOR) 80 MG | nightly. | | | | | | tablet [...] + + + +---------+ + + | clopidogrel | Take 75 mg by mouth | | 0 | | | | (PLAVIX) 75 mg | Daily. | | | | | | tablet | | | | | | + + + +---------+ + + | verapamil (CALAN | Take 1 tablet by | 30 | 11 | 09/26/19 | | | SR) 120 mg SR tablet | mouth Daily. | tablet | | 20 | 0 | + + + +---------+ + + documented as of this encounter Progress Notes Mily Fernandes RN - 10/12/2019 8:[address] Frost, patient's cardioversion is cancel led. Patient inquired about cancelling his appointment for holter monitor. Advised him to keep the appointment or call Dr. Frost's office to find out if he still wants him to go. Rojelio Fernandes RN hMily damon RN - 0 10/12/2019 7:[address] Frost to let him know that patient is in NSR. Left voicemail . Mily Fernandes RN documented in this enc ounter Plan of [...] | | | | | | [place] [address] | | | | | | [phone] | | | | | | | | +--------+---------+ + + + documented as of this encounter Procedures + +--------+ + + + | Procedure Name | Priori | Date/Time | Associated Diagnosis | Comments | | | ty | | | | + +--------+ + + + | CV INCOMPLETE | Routin | 10/15/2019 | Atrial flutter, | Results for this | | PROCEDURE | e | 11:09 AM | unspecified type | procedure are in the | | | | PDT | ([facility]) | results section. | + +--------+ + + + | ECG 12 LEAD | STAT | 10/12/2019 | | Results for this | | | | 7:32 AM | | procedure are in the | | | | PDT | | results section. | + +--------+ + + + | PROTIME INR | STAT | 10/12/2019 | | Results for this | | | | 7:26 AM | | procedure are in the | | | | PDT | | results section. | + +--------+ + + + | CBC WITH | STAT | 10/12/2019 | | Results for this | | DIFFERENTIAL | | 7:26 AM | | procedure are in the | | | | PDT | | results section. | + +--------+ + + + | CORONAVIRUS | STAT | 10/12/2019 | | Results for this | | (COVID-19) NAAT | | 7:04 AM | | procedure are in the | | | | PDT | | results section. | + +--------+ + + + documented in this encounter Results CV INCOMPLETE PROCEDURE (10/15/2019 11:09 AM PDT) + + | Specimen | + + | | + + + + + | Narrative | Performed At | + + + | DC | | | Cardioversion canceled, as he was in NSR on arrival. For additional | | | detail as to the procedures performed and the equipment that was | | | utilized, please refer to the Procedure Log. | | |that was utilized, please refer to the Procedure Log. | | | | | + + + ECG 12 lead (10/12/2019 7:32 AM PDT) + + + + + + | Component | Value | Ref Range | Performed | Pathologist | | | | | At | Signature | + + + + + + | VENTRICULAR | 62 | BPM | [facility] | | | RATE EKG | | | | | + + + + + + | ATRIAL RATE | 62 | BPM | [facility] | | + + + + + + | P-R | 162 | ms | [facility] | | | INTERVAL | | | | | + + + + + + | QRS | 94 | ms | [facility] | | | DURATION | | | | | + + + + + + | Q-T | 444 | ms | [facility] | | | INTERVAL | | | | | + + + + + + | Q-T | 450 | ms | [facility] | | | INTERVAL | | | | | | (CORRECTED) | | | | | + + + + + + | P WAVE AXIS | 69 | degrees | [facility] | | + + + + + + | QRS AXIS | -20 | degrees | [facility] | | + + + + + + | T AXIS | -7 | degrees | [facility] | | + + + + + + | INTERPRETAT | Normal sinus | | [facility] | | | ION TEXT | rhythmNonspecific ST | | | | | | and/or T wave | | | | | | abnormalitiesBorderline | | | | | | ECGWhen compared with | | | | | | ECG of 26-SEP-2019 | | | | | | 14:51,Sinus rhythm has | | | | | | replaced Atrial | | | | | | flutterST no longer | | | | | | depressed in Inferior | | | | | | leadsNon-specific change | | | | | | in ST segment in | | | | | | Lateral leadsConfirmed | | | | | | by NIDIA WILLIS MD | | | | | | ([id number]) on 10/12/2019 | | | | | | 2:05:09 PM | | | | + + + [...] | | | + +---------+ + + Shabnamime RENNY (10/12/2019 7:26 AM PDT) + + + + + + | Component | Value | Ref Range | Performed | Pathologist | | | | | At | Signature | + + + + + + | INR | 1.1Comment: REFERENCE | | [facility] | | | | RANGE:0.9 - 1.2 | | LABORATORY | | | | NON-ANTICOAGULATED2.0 | | | | | | - 3.0 ALL OTHER | | | | | | THERAPEUTIC | | | | | | INDICATIONS2.5 - 3.5 | | | | | | MECHANICAL HEART VALVES, | | | | | | RECURRENT OR SYSTEMIC | | | | | | EMBOLISMTesting | | | | | | performed at [facility];[address] | | | | | | [address];[place], [place] | | | | | | [address] | | | | + + + + + + + + | Specimen | + + | Blood | + + + + + + + | Performing | Address | City/State/Zipcode | Phone Number | | Organization | | | | + + + + + | [facility] | [address] | [place] [address] | [phone] | + + + + + CBC with Differential (10/12/2019 7:26 AM PDT) + + + + + + | Component | Value | Ref Range | Performed | Pathologist | | | | | At | Signature | + + + + + + | WBC | 6.57 | 3.80 - 11.00 | [facility] | | | | | K/uL | LABORATORY | | + + + + + + | Red Blood | 5.90 (H) | 4.20 - 5.70 | [facility] | | | Cells | | M/uL | LABORATORY | | + + + + + + | Hemoglobin | 17.6 (H) | 13.2 - 17.0 | [facility] | | | | | g/dL | LABORATORY | | + + + + + + | Hematocrit | 52.3 (H) | 39.0 - 50.0 % | [facility] | | | | | | LABORATORY | | + + + + + + | MCV | 88.6 | 80.0 - 100.0 fl | [facility] | | | | | | LABORATORY | | + + + + + + | MCH | 29.8 | 27.0 - 34.0 pg | [facility] | | | | | | LABORATORY | | + + + + + + | MCHC | 33.7 | 32.0 - 35.5 | [facility] | | | | | g/dL | LABORATORY | | + + + + + + | RDW-SD | 46.5 | 37 - 53 fl | [facility] | | | | | | LABORATORY | | + + + + + + | Platelet | 261 | 150 - 400 K/uL | [facility] | | | Count | | | LABORATORY | | + + + + + + | MPV | 10.2Comment: NO NORMAL | fl | [facility] | | | | RANGE ESTABLISHED | | LABORATORY | | + + + + + + | Diff Type | AUTOMATED | | [facility] | | | | | | LABORATORY | | + + + + + + | % nRBC | 0.0 | 0 /100WBC | [facility] | | | | | | LABORATORY | | + + + + + + | % | 66.30 | % | [facility] | | | Neutrophils | | | LABORATORY | | + + + + + + | IMMATURE | 0.20 | % | [facility] | | | GRANULOCYTE | | | LABORATORY | | + + + + + + | % | 22.50 | % | [facility] | | | Lymphocytes | | | LABORATORY | | + + + + + + | Monocyte % | 8.40 | % | [facility] | | | | | | LABORATORY | | + + + + + + | Eosinophils | 2.30 | % | [facility] | | | % | | | LABORATORY | | + + + + + + | Basophils % | 0.30 | % | [facility] | | | | | | LABORATORY | | + + + + + + | Neutrophils | 4.36 | 1.90 - 7.40 | [facility] | | | , Absolute | | K/uL | LABORATORY | | + + + + + + | IMMATURE | 0.01Comment: NOTE NEW | 0.00 - 0.07 | [facility] | | | GRANS AB | REFERENCE RANGE | K/uL | LABORATORY | | + + + + + + | Absolute | 1.48 | 1.00 - 3.90 | [facility] | | | Lymphocytes | | K/uL | LABORATORY | | + + + + + + | Absolute | 0.55 | 0.00 - 0.80 | [facility] | | | Monocytes | | K/uL | LABORATORY | | + + + + + + | Eosinophils | 0.15 | 0.00 - 0.50 | [facility] | | | , Absolute | | K/uL | LABORATORY | | + + + + + + | Basophils, | 0.02Comment: Testing | 0.00 - 0.10 | [facility] | | | Absolute | performed at [facility];[address] | LABORATORY | | | | [address];[place], [place] | | | | | | [address] | | | | + + + + + + + + | Specimen | + + | Blood | + + + + + + + | Performing | Address | City/State/Zipcode | Phone Number | | Organization | | | | + + + + + | [facility] | [address] | [place] [address] | [phone] | + + + + + Coronavirus (COVID-19) NAAT (10/12/2019 7:04 AM PDT) + + + + + + | Component | Value | Ref Range | Performed | Pathologist | | | | | At | Signature | + + + + + + | SARS-CoV-2, | NEGATIVEComment: This | NEG | [facility] | | | NAAT | test was developed and | | LABORATORY | | | (COVID-19) | its performance | | | | | | characteristics | | | | | | determined byCepheid. It | | | | | | has not been cleared or | | | | | | approved by the [place] FDA. | | | | | | This test has | | | | | | beenauthorized by FDA | | | | | | under an Emergency Use | | | | | | Authorization (EUA). | | | | | | Clinicians shouldbe | | | | | | advised to consider a | | | | | | patients signs, | | | | | | symptoms, history, and | | | | | | results ofother | | | | | | diagnostic tests when | | | | | | interpreting | | | | | | results.Testing | | | | | | performed at [facility] | | | | | | [address];[place], [place] | | | | | | [address] | | | | + + + + + + + + | Specimen | + + | Tissue - Entire | | nasopharynx (body | | structure) | + + + + + + + | Performing | Address | City/State/Zipcode | Phone Number | | Organization | | | | + + + + + | [facility] | [address] | [place] [address] | [phone] | + + + + + documented in this encounter Visit Diagnoses + + | Diagnosis | + + | Atrial flutter, unspecified type (HCC) | + + documented in this encounter Admitting Diagnoses + + | Diagnosis | + + | Atrial flutter, unspecified type (HCC) | + + documented in this encounter Administered Medications + +--------+---------+------+------+------+ | Medication Order | MAR | Action | Dose | Rate | Site | | | Action | Date | | | | + +--------+---------+------+------+------+ + +---+ | sodium chloride 0.9% (NS) | | | infusion at 100 mL/hr, | | | Intravenous, CONTINUOUS, Starting | | | Tue10/12/19 at 0715, Pre-op | | + +---+ | | | + +---+ documented in this encounter
--- OUTSIDE RECORDS SUMMARY | ~2020-01-09 | XMS | Encounter Summary ---
Demographics + + + | Address | [address] | | | [place] [address] | + + + | Home Phone [...] Author + + + | Author | [facility] | | | and [place] | + + + | Organization | [facility] | | | and [...] [place] | | | | | [address] | | + + + + + | Santo Cervantes | ECON | Unknown | | + + + + + Care Team Providers + +------+ + | Care Scholarship Counselor Name | Role | Phone | + [...] | 12/29/ | Office | [facility] | Min Tello MD | S/P lumbar fusion | | 2016 | Visit | NEUROSURGERY [address] | (Primary Dx); DDD | | | | [address] | [place] [address] | (degenerative disc | | | | [place] | [phone] | disease), lumbar | | | | [address] | | | | | | [phone] | | | +--------+---------+ + + + [...] t isabel original. .. Min Tello MD [address] [place] [address], [facility] [address] [place], [place] [address] FAX: NEUROSURGERY FOLLOW-UP CHIEF COMPLAINT: Chief Complaint [...] % cream Apply 1 Application topically Daily. [place]-3 Fatty Acids (OMEGA 3 PO) Take 2 [...] Tello MD, 12/31/2015 8:44 documented in this encou nter Plan of [...] | | | | | | [place] [address] | | | | | | [phone] | | | | | | | [...]
--- OUTSIDE RECORDS SUMMARY | ~2020-01-09 | XMS | Encounter Summary ---
Demographics + + + | Address | [address] | | | [place] [address] | + + + | Home Phone [...] Author + + + | Author | [facility] | | | and [place] | + + + | Organization | [facility] | | [...] [place] | | | | | [address] | | + + + + + | Santo Cervantes | ECON | Unknown | | + + + + + Care Team Providers + +------+ + | Care Switchboard Wire Worker Helper Name | Role | Phone | [...] | | | | Diagnoses | | [place], | | | | | Atrial | | Christiano Glass MD | | | | | flutter, | | [address] | | | | | unspecified | | [address] | | | | | type (HCC) | | [place] | | | | | Procedures | | [place] | | | | | [place] | | [address] Phone: | | | | | CARDIOVERSIO | | [phone] | | | | | N ELECTIVE | | Fax: | | | | | ARRHYTHMIA | | [phone] | | | | | EXTERNAL CV [...] | +--------+ + + + + | 10/11/ | Hospital | [facility] | Christiano Frost, | Atrial flutter, | | 2020 | Encounter | CENTER CV INTRA OP | MD [address] | unspecified type | | | | [address] | [place], | ([facility]); Atrial | | | | [place] | [place] [address] | flutter, unspecified | | | | [address] | [phone] | type ([facility]) | | | | [phone] | | | +--------+ + + + [...] wants him to go. Rojelio Fernandes RN ily Fernandes RN - 0 10/12/2019 7:30 AM PDTCalled [...] | | | | | | [place] [address] | | | | | | [phone] | | | | | | | [...] the | | | | PDT | ([facility]) | results section. | + +--------+ + [...] | | | + +---------+ + + Protime INR (10/12/2019 7:26 AM PDT) + + + [...] | | | | | performed at [facility] | | | | | | [address];[place], [place] | | | | | | [address] | | | | + + + + + + + + | Specimen | + + | Blood | + + + + + + + | Performing | Address | City/State/Zipcode | Phone Number | | Organization | | | | + + + + + | [facility] | [address] | [place] [address] | [phone] | + + + + + CBC [...] | | | Absolute | performed at [facility];[address] | [address] | LABORATORY | | | | [address];[place] | | | | | | [address] | | | | + + + + + + + + | Specimen | + + | Blood | + + + + + + + | Performing | Address | City/State/Zipcode | Phone Number | | Organization | | | | + + + + + | [facility] | [address] | [place] [address] | [phone] | + + + + + Coronavirus (COVID-19) NAAT (10/12/2019 7:04 AM PDT) + + + + + + | Component | Value | Ref Range | Performed | Pathologist | | | | | At | Signature | + + + + + + | SARS-CoV-2, | NEGATIVEComment: This | NEG | [facility] | | | NAAT | test was [...] | | | | | performed at [facility] | | | | | | [address];[place], [place] | | | | | | [address] | | | | + + + + + + + + | Specimen | + + | Tissue - Entire | | nasopharynx (body | | structure) | + + + + + + + | Performing | Address | City/State/Zipcode | Phone Number | | Organization | | | | + + + + + | [facility] | [address] | [place] [address] | [phone] | + + + + + documented in this encounter Visit Diagnoses + + | Diagnosis | + + | Atrial flutter, unspecified type (HCC) - Primary | + + documented in [...]
--- OUTSIDE RECORDS SUMMARY | ~2020-01-09 | XMS | Clinical Summary ---
Demographics + + + | Address | [address] | | | [place] [address] | + + + | Home Phone [...] Author + + + | Author | [facility] | | | and [place] | + + + | Organization | [facility] | | [...] [place] | | | | | [address] | | + + + + + | [place] | ECON | Unknown | | + + + + + Care Team Providers + +------+ + | Care Stock Control Supervisor Name | Role | Phone | + +------+ + | Shubham Maurer MD | PCP | | + +------+ + Allergies No Known Allergies Medications + + + +---------+------+------+-------+ | Medication | Sig | Dispensed | Refills | Star | End | Statu | | | | | | t | Date | s | | | | | | Date | | | + + + +---------+------+------+-------+ | artificial tears | Place 1 drop into | | 0 | | | Activ | | (REFRESH TEARS) | both eyes every hour | | | | | e | | ophthalmic solution | as needed for Dry | | | | | | | | Eyes. | | | | | | + + + +---------+------+------+-------+ | cefadroxil | TAKE ONE TABLET THE | 2 | 0 | 06/2 | | Activ | | (DURICEF) 500 mg | MORNING OF DENTAL | capsule | | 7/20 | | e | | capsule | PROCEDURE AND ONE 12 | | | 19 | | | | | HOURS LATER | | | | | | + + + +---------+------+------+-------+ | atorvaSTATin | Take 80 mg by mouth | | 0 | | | Activ | | (LIPITOR) 80 MG | nightly. | | | | | e | | tablet | | | | | | | + + + +---------+------+------+-------+ | clopidogrel | Take 75 mg by mouth | | 0 | | | Activ | | (PLAVIX) 75 mg | Daily. | | | | | e | | tablet | | | | | | | + + + +---------+------+------+-------+ | apixaban (ELIQUIS) | Take 5 mg by mouth 2 | | 0 | | | Activ | | 5 mg tablet | times daily. | | | | | e | + + + +---------+------+------+-------+ | verapamil (CALAN | Take 1 tablet by | 90 | 3 | 08/0 | 08/0 | Activ | | SR) 120 mg SR tablet | mouth Daily. | tablet | | 09/14 | 09/14 | e | | | | | | 20 | 21 | | + + + +---------+------+------+-------+ Active Problems + + + | Problem | Noted Date | + + + | Atrial flutter, unspecified type | 09/26/2019 | + + + + + | Overview: Added automatically from request for surgery | | [id number] | + + + + + | Carotid stenosis, right | 09/04/2019 | + + + + + | Overview: 10x40 Enroute Carotid Stent placed 09/06/2019 | + + + + + | Stroke due to stenosis of right carotid artery | 09/03/2019 | + + + + + | Overview: watershed stroke of right MCA territory, with | | multiple acute small infarcts in the borderline between the [place] | | and MCA | + + + + + | Spondylosis of lumbar joint | 11/13/2015 | + + + | Neurogenic claudication | 11/13/2015 | + + + | Lumbar radiculopathy | 10/10/2015 | + + + | Spinal stenosis, lumbar | 10/10/2015 | + + + | DDD (degenerative disc disease), lumbar | 10/10/2015 | + + + | S/P lumbar fusion | 06/04/2015 | + + + | Lumbar scoliosis | 11/29/2014 | + + + Resolved Problems + + + + | Problem | Noted | Resolved | | | Date | Date | + + + + | Neck pain, acute | 02/29/20 | | | | 15 | 6 | + + + + | Left arm pain | 02/29/20 | | | | 15 | 6 | + + + + | Left arm numbness | 02/29/20 | | | | 15 | 6 | + + + + | Cervical spondylosis | 02/29/20 | | | | 15 | 6 | + + + + | Facet arthropathy, lumbar | 11/30/19 | | | | 15 | 6 | + + + + | Lumbar radiculopathy | 11/30/19 | | | | 15 | 6 | + + + + | Facet arthropathy, lumbar | 11/30/19 | | | | 15 | 6 | + + + + | Lumbar spinal stenosis | 11/30/19 | | | | 15 | 6 | + + + + | Foraminal stenosis of lumbar region | 11/30/19 | | | | 15 | 6 | + + + + Encounters +--------+ + + + + | Date | Type | Specialty | Care Team | Description | +--------+ + + + + | 10/31/ | Refill | Cardiology | Christiano Frost, | Medication Refill | | 2019 | | | MD | | +--------+ + + + + | 10/22/ | Procedure | Cardiology | Christiano Frost, | Atrial flutter, | | 2019 | visit | | MD | unspecified type | | | | | | (HCC) | +--------+ + + + + | 10/22/ | Documentati | Cardiology | Beierle, Adelita R, | Other (end of study) | | 2019 | on | | Technologist | | +--------+ + + + + | 10/11/ | Surgery | Cardiology | Christiano Frost, | Canceled CV | | 2019 | | | MD | Incomplete Procedure | +--------+ + + + + | 10/11/ | Anesthesia | Cardiology | Roque Gar MD | | | 2019 | Event | | | | +--------+ + + + + | 10/11/ | Hospital | Cardiology | Christiano Frost, | Atrial flutter, | | 2019 | Encounter | | MD | unspecified type | | | | | | ([facility]); Atrial | | | | | | flutter, unspecified | | | | | | type (HCC) | +--------+ + + + + | 10/10/ | Telephone | Cardiology | Christiano Frost, | Pre-Op | | 2020 | | | MD | | +--------+ + + + + from Last 3 Months Immunizations + + + + | Name | Administration Dates | Next Due | + + + + | HEP A, 2 DOSE | 05/30/2006 | | | (ADULT) | | | + + + + | INFLUENZA 63 Y OR >, | 12/17/2016, 12/06/2014, 12/24/2013 | | | TRIVALENT HIGH-DOSE | | | + + + + | INFLUENZA TRIV | 12/26/2012, 01/16/2012, 11/26/2010 | | | W/PRES(PED/ADOL/ADUL | | | | T),MULTIDOSE | | | + + + + | INFLUENZA, | 01/20/2010, 12/16/2008, 12/29/2007, | | | UNSPECIFIED | 04/03/2005 | | | FORMULATION | | | + + + + | PNEUMOCOCCAL | 12/24/2013 | | | CONJUGATE 13-VALENT | | | | (PCV13) | | | + + + + | PNEUMOCOCCAL | 07/30/2013 | | | POLYSACCHARIDE | | | | 23-VALENT (PPSV23) | | | + + + + | TDAP, (ADOL/ADULT) | 08/20/2017, 11/09/2011, 05/30/2006 | | + + + + | TYPHOID, ORAL (LIVE) | 05/30/2006 | | + + + + | YELLOW FEVER, SQ | 05/30/2006 | | | (LIVE) | | | + + + + | ZOSTER, 1 DOSE | 07/30/2008 | | | (ZOSTAVAX) | | | + + + + Family History + + +------+ + | Medical History | Relation | Name | Comments | + + +------+ + | Diabetes, NIDDM | Brother | | | + + +------+ + | Nephrolithiasis | Brother | | | + + +------+ + | Atrial fibrillation | Brother | | | + + +------+ + | Gout | Brother | | | + + +------+ + | Prostate cancer | Father | | | + + +------+ + | Dementia | Mother | | | + + +------+ + | Other (see comment) | Mother | | carotid stenosis | + + +------+ + | Stroke | Mother | | TIAs, CVA | + + +------+ + | Cancer | Paternal | | | | | Grandfath | | | | | er | | | + + +------+ + + +------+ + + | Relation | Name | Status | Comments | + +------+ + + | Brother | | Alive | | + +------+ + + | Brother | | Alive | | + +------+ + + | Father | | | cancer | | | | (Age | | | | | 78) | | + +------+ + + | Mother | | | | | | | (Age | | | | | 81) | | + +------+ + + | Paternal Grandfather | | | | + +------+ + + | Son | | Alive | | + +------+ + + Social History + +-------+ +--------+------+ [...] + + + + Plan of Treatment +--------+---------+ + + + | Date | Type | Specialty | Care Team | Description | +--------+---------+ + + + | 01/24/ | Office | Cardiology | Christiano Frost, | | | 2019 | Visit | | MD [address] | | | | | | [place], | | | | | | [place] [address] | | | | | | [phone] | | | | | | | | +--------+---------+ + + + + + + + + | Health Maintenance | Due Date | Last | Comments | | | | Done | | + + + + + | Hepatitis C | | | | | Screening | 9 | | | + + + + + | Medication | | | | | Management | 9 | | | + + + + + | Colorectal Cancer | | | | | Screening | 9 | | | | (Colonoscopy) | | | | + + + + + | Vaccine: Zoster (2 | | 07/31/19 | | | of 3) | 9 | 09 | | + + + + + | Adult Annual | | | | | Wellness Visit | 5 | | | + + + + + | Med Mgmt: Cr | | 12/21/19 | | | | 9 | 18, | | | | | 03/26/20 | | | | | 15 | | + + + + + | Vaccine: Influenza | | 12/18/19 | | | (#1) | 0 | 17, | | | | | 12/07/19 | | | | | 15, | | | | | 12/25/19 | | | | | 14, | | | | | Addition | | | | | al | | | | | history | | | | | exists | | + + + + + | Med Mgmt: HCT | | 10/12/19 | | | | 1 | 20, | | | | | 12/21/19 | | | | | 18, | | | | | 03/26/20 | | | | | 15 | | + + + + + | Med Mgmt: HGB | | 10/12/19 | | | | 1 | 20, | | | | | 12/21/19 | | | | | 18, | | | | | 03/26/20 | | | | | 15 | | + + + + + | Vaccine: | | 08/21/19 | | | Dtap/Tdap/Td (4 - | 8 | 18, | | | Td) | | 11/09/19 | | | | | 12, | | | | | 05/31/19 | | | | | 07 | | + + + + + | Vaccine: | Completed | 12/25/19 | | | Pneumococcal 65+ | | 14, | | | | | 07/31/19 | | | | | 14 | | + + + + + Implants + +--------+--------+ +--------+--------+--------+ | Implanted | Type | Area | Manufacture | Device | Shelf | Model | | | | | r | | Expira | / | | | | | | Identi | tion | Serial | | | | | | fier | Date | / Lot | + +--------+--------+ +--------+--------+--------+ | Cliff Bone Palacos-R 40gm - | Generi | Right: | NORAH - | | 04/27/ | 00-111 | | [id number]: Qty: 2 | c | Knee | ZIMM | | 2022 | 2-140- | | on 12/19/2017 by Eliu, | | | | | | 01 / | | Julius Ford MD at [facility] | | | | | | /[id number] | | [facility] | | | | | | 767 | | CENTER | | | | | | | + +--------+--------+ +--------+--------+--------+ | Imp Knee Fem Stem Rt Sz9 - | Generi | Right: | NORAH - | | 02/24/ | 42-502 | | [id number]: Qty: 1 | c | Knee | ZIMM | | 2026 | 6-066- | | on 12/19/2017 by Eliu, | | | | | | 02 / | | Julius Ford MD at [facility] | | | | | | /[id number] | | [facility] | | | | | | 975 | | CENTER | | | | | | | + +--------+--------+ +--------+--------+--------+ | Imp Knee Tib 5deg Rt Szf - | Generi | Right: | NORAH - | | 08/25/ | 42-532 | | [id number]: Qty: 1 | c | Knee | ZIMM | | 2027 | 0-075- | | on 12/19/2017 by Eliu, | | | | | | 02 / | | Julius Ford MD at [facility] | | | | | | /[id number] | | [facility] | | | | | | 098 | | CENTER | | | | | | | + +--------+--------+ +--------+--------+--------+ | Imp Knee Ptela Polyeth 35mm - | Generi | Right: | NORAH - | | 09/24/ | 42-540 | | [id number]: Qty: 1 | c | Knee | ZIMM | | 2025 | 0-000- | | on 12/19/2017 by Eliu, | | | | | | 35 / | | Julius Ford MD at [facility] | | | | | | /[id number] | | [facility] | | | | | | 384 | | CENTER | | | | | | | + +--------+--------+ +--------+--------+--------+ | Imp Knee Surf Artc R 11 | Generi | Right: | NORAH - | | 12/25/ | 42-522 | | [id number] - [id number]: | c | Knee | ZIMM | | 2022 | 1-008- | | Qty: 1 on 12/19/2017 by | | | | | | 11 / | | Julius Nowak MD at | | | | | | /[id number] | | [facility] | | | | | | 859 | | [facility] | | | | | | | + +--------+--------+ +--------+--------+--------+ | Chips Canc 1.7-10mm 30cc - | | Spine | [employer]IC - | | 09/10/ | [id number] | | SnaImplanted: Qty: 1 on | | Lumbar | MEDT | | 2019 | | | 05/05/2015 by Min Tello, | | | | | | /[id number] | | at [facility] | | | | | | 1-022 | | [facility] | | | | | | / | + +--------+--------+ +--------+--------+--------+ | Yonatan Ti Prebent Lordtc 95mm - | | Spine | NUVASIVE - | | | [id number] | | [id number]: Qty: 2 on | | Lumbar | NVSV | | | / | | 05/05/2015 by Min Tello, | | | | | | | | at [facility] | | | | | | | | [facility] | | | | | | | + +--------+--------+ +--------+--------+--------+ | Screw Polyax Prcpt 7.5x50mm - | | Spine | NUVASIVE - | | | [id number] | | [id number]: Qty: 4 | | Lumbar | NVSV | | | 0A / / | | on 05/05/2015 by Min Tello | | | | | | | | MD Nazia at [facility] | | | | | | | | [facility] | | | | | | | + +--------+--------+ +--------+--------+--------+ | Screw Prcpt 8.5x45mm - | | Spine | NUVASIVE - | | | [id number] | | [id number]: Qty: 2 on | | Lumbar | NVSV | | | 5A / / | | 05/05/2015 by Min Tello | | | | | | | | at [facility] | | | | | | | | [facility] | | | | | | | + +--------+--------+ +--------+--------+--------+ | Putty Sim 10cc Dbm - | | Spine | OSTEOTECH - | | 01/14/ | 00226 | | [id number]: Qty: 1 | | Lumbar | OSTT | | 2017 | /[id number] | | on 05/05/2015 by Min Tello | | | | | | 9-033 | | MD Nazia at [facility] | | | | | | / | | [facility] | | | | | | | + +--------+--------+ +--------+--------+--------+ | Graft Infuse Bone Kit Xxs - | | Spine | SOFAMOR | | 12/03/ | [id number] | | SnaImplanted: Qty: 1 on | | Lumbar | DANEK - DIV | | 2015 | 0 / | | 05/05/2015 by Min Tello, | | | [employer] | | | /[id number] | | at [facility] | | | - SFDK | | | [id number] | | [facility] | | | | | | | + +--------+--------+ +--------+--------+--------+ | Graft Infuse Bone Kit Xs - | | Spine | SOFAMOR | | 02/02/ | [id number] | | SnaImplanted: Qty: 1 on | | Lumbar | DANEK - DIV | | 2015 | 0 / | | 05/05/2015 by Min Tello, | | | [employer] | | | /[id number] | | at [facility] | | | - SFDK | | | [id number] | | [facility] | | | | | | | + +--------+--------+ +--------+--------+--------+ | Imp Spn Intbdy Xlw | | Spine | NUVASIVE - | | | [id number] | | [id number] - | | Lumbar | NVSV | | | 0 / / | | [id number]: Qty: 1 on | | | | | | | | 05/05/2015 by Min Tello, | | | | | | | | MD at [facility] | | | | | | | | [facility] | | | | | | | + +--------+--------+ +--------+--------+--------+ | Imp Spn Intbdy Xlw | | Spine | NUVASIVE - | | | [id number] | | [id number] - | | Lumbar | NVSV | | | 5 / / | | [id number]: Qty: 1 on | | | | | | | | 05/05/2015 by Min Tello, | | | | | | | | MD at [facility] | | | | | | | | [facility] | | | | | | | + +--------+--------+ +--------+--------+--------+ | Tlif Oblique [id number] 12deg | | Spine | NUVASIVE - | | | [id number] | | - [id number]: Qty: 1 | | Lumbar | NVSV | | | 2 / / | | on 05/05/2015 by Min Tello | | | | | | | | MD Nazia at [facility] | | | | | | | | [facility] | | | | | | | + +--------+--------+ +--------+--------+--------+ | Screw Set - | | Spine | NUVASIVE - | | | [id number] | | [id number]: Qty: 9 on | | Lumbar | NVSV | | | 0 / / | | 05/05/2015 by Min Tello | | | | | | | | at [facility] | | | | | | | | [facility] | | | | | | | + +--------+--------+ +--------+--------+--------+ | Screw Polyax Precept 7.5x55 - | | Spine | NUVASIVE - | | | [id number] | | [id number]: Qty: 2 | | Lumbar | NVSV | | | 5A / / | | on 05/05/2015 by Min Tello | | | | | | | | MD Nazia at [facility] | | | | | | | | [facility] | | | | | | | + +--------+--------+ +--------+--------+--------+ Procedures + +--------+ + + + | [...] the | | | | PDT | ([facility]) | results section. | + +--------+ + [...] section. | + +--------+ + + + from Last 3 Months Results CV INCOMPLETE PROCEDURE (10/15/2019 11:09 AM [...] | | | | | | by NDIIA WILLIS MD | | | | | [...] | | | | | performed at [facility];[address];[place] | | | | | | [address] | | | | + + + + + + + + | Specimen | + + | Blood | + + + + + + + | Performing | Address | City/State/Zipcode | Phone Number | | Organization | | | | + + + + + | [facility] | [address] | [place] [address] | [phone] | + + + + + CBC [...] 0.02Comment: Testing | 0.00 - 0.10 | [facility] | | | Absolute | performed at [facility];[address] | | | | [address];[place], [place] | | | | | | [address] | | | | + + + + + + + + | Specimen | + + | Blood | + + + + + + + | Performing | Address | City/State/Zipcode | Phone Number | | Organization | | | | + + + + + | [facility] | [address] | [place] [address] | [phone] | + + + + + Coronavirus (COVID-19) NAAT (10/12/2019 7:04 AM PDT) + + + + + + | Component | Value | Ref Range | Performed | Pathologist | | | | | At | Signature | + + + + + + | SARS-CoV-2, | NEGATIVEComment: This | NEG | KR | | | NAAT | test was [...] | | | | | performed at [facility] | | | | | | [facility];[place], [place] | | | | | | [address] | | | | + + + + + + + + | Specimen | + + | Tissue - Entire | | nasopharynx (body | | structure) | + + + + + + + | Performing | Address | City/State/Zipcode | Phone Number | | Organization | | | | + + + + + | [facility] | [address] | [place] [address] | [phone] | + + + + + from Last 3 Months Insurance + +--------+ +--------+ +---------+--------+ | Payer | Benefi | Subscriber | Effect | Phone | Address | Type | | | t Plan | ID | meera | | | | | | / | | Dates | | | | | | Group | | | | | | + +--------+ +--------+ +---------+--------+ | MEDICARE | MEDICA | [id number] | 04/28/19 | [phone] | | Medica | | | RE | | 14-Pre | 5 | | re | | | PART A | | sent | | | | | | AND B | | | | | | + +--------+ +--------+ +---------+--------+ | | TRICAR | [id number] | | [phone] | | Indemn | | | E FOR | | 012-Pr | 0 | | ity | | | LIFE | | esent | | | | + +--------+ +--------+ +---------+--------+ | MEDICARE | MEDICA | [id number] | 04/28/19 | [phone] | | Medica | | | RE | | 14-Pre | 5 | | re | | | PART A | | sent | | | | | | AND B | | | | | | + +--------+ +--------+ +---------+--------+ | | TRICAR | [id number] | | [phone] | | Indemn | | | E FOR | | 020-Pr | 0 | | ity | | | LIFE | | esent | | | | + +--------+ +--------+ +---------+--------+ + +--------+ +--------+ + + | Guarantor Name | Accoun | Relation to | Date | Phone | Billing Address | | | t Type | Patient | of | | | | | | | | | | + +--------+ +--------+ + + | Raúl Day | Person | Self [birth year] | [address] | | [place] | al/Fam | | 1951 | [phone] | [place] | | | [place] | | | [address] (Home) | [address] | + +--------+ +--------+ + + | Raúl Day | Person | Self | [birth year] | [address] | | [place] | al/Fam | | 1951 | [phone] | [place], [place] | | | [place] | | | [address] (Home) | [address] | + +--------+ +--------+ + + Advance Directives + + + + + | Type | Date Recorded | Patient | Explanation | | | | Oil Change Technician | | + + + + + | Power of | | | | | Sound Printer | | | | + + + + + | Advance | 05/05/2015 11:57 | | | | Directive | AM | | | + + + + + + + + + + | Code Status | Date | Date | Comments | | | Activated | Inactivated | | + + + + + | Full Code | 12/19/2017 | 12/22/2017 | | | | 3:11 PM | 5:06 PM | | + + + + + + + + +---+ | | | | | + + + +---+ | Full Code | 05/05/2015 | 05/08/2015 | | | | 11:00 PM | 12:36 PM | | + + + +---+
--- OUTSIDE RECORDS SUMMARY | ~2020-01-09 | XMS | Encounter Summary ---
Demographics + + + | Address | [address] | | | [place] [address] | + + + | Home Phone [...] + + | Author | [facility] | | | and [place] | + + + | Organization | [facility] | | | and [...] [place] | | | | | [address] | | + + + + + | Santo Cervantes | ECON | Unknown | | + + + + + Care Team Providers + +------+ + | Care Freight Service Inspector Name | Role | Phone | [...] | Specialty | Physical | Diagnoses | [place], | [address] | | | Services | Therapy | Lumbar | Jovan | FELISA | | | Required | | spinal | BECCA Mejia | [facility] | | | | | stenosis | [address] | [address] | | | | | Lumbar | AVE | AVE | | | | | radiculopath | [place] [address] | [place] | | | | | y [place] | [address] | [address] | | | | | stenosis of | Phone: | Phone: | | | | | lumbar | [phone] | [phone] | | | | | region | Fax: | Fax: | | | | | Facet | [phone] | [phone] | | | | | arthropathy, | | | | | | | lumbar S/P | | | | | | | lumbar | | | | | | | fusion | | | +--------+ + + + + + Reason for Visit + + + | Reason | Comments | + + + | Follow-up | 4w PO | + + + Encounter Details +--------+---------+ + + + | Date | Type | Department | Care Team | Description | +--------+---------+ + + + | 06/03/ | Office | [facility] [place] | Jovan Alford | Lumbar spinal | | 2016 | Visit | NEUROSURGERY [address] | BECCA Mejia [address] | stenosis (Primary | | | | [address] [place] | Dx); Lumbar | | | | [place] | [address] | radiculopathy; | | | | [address] | | Foraminal stenosis | | | | [phone] | | of lumbar region; | | | | | | Facet arthropathy, | | | | | | lumbar; S/P lumbar | | | | | | fusion | +--------+---------+ + + + Social History [...] + + + | Blood Pressure | 112/76 | 06/04/2015 12:59 PM | | | | | PST | | + + + + + | Pulse | 74 | 06/04/2015 12:59 PM | | | | | PST | | + + + + + | Temperature | - | - | | + + + + + | Respiratory Rate | 20 | 06/04/2015 12:59 PM | | | | | PST | | + + + + + | Oxygen Saturation | - | - | | + + + + + | Inhaled Oxygen | - | - | | | Concentration | | | | + + + + + | Weight | 83.5 kg (184 lb) | 06/04/2015 12:59 PM | | | | | PST | | + + + + + | Height | 172.7 cm (5' 8") | 06/04/2015 12:59 PM | | | | | PST | | + + + + + | Body Mass Index | 27.98 | 06/04/2015 12:59 PM | | | | | PST | | + + + + + documented in this encounter Patient Instructions Patient Instructions Jovan Alford PA - 06/04/2015 1:38 PM PSTToday we discussed i ncreasing your activity by allowing you to lift up to 15 pounds. You may also begin the pro cess of weaning your lumbar brace and you may begin physical therapy. Please discontinue us ing all nonsteroidal anti-inflammatory medications as they interfere with the fusion process . Please discuss medications for your knee pain with your primary care provider. SPINE BRACE WEANING PROTOCOL (5 WEEKS) Below are instructions for weaning your brace. You can move through the weeks slower if yo u feel the need to do so, but the overall goal is to get you out of the brace slowly over th e next several weeks. WEEK 1 If you have been using your brace for activities like sleeping, showering, do not use the b race for these activities any longer but continue using it for everything else. WEEK 2 Stop wearing your brace for sitting and short distance walking. You should use the brace f or anything more involved. WEEK 3 Stop using the brace for medium distance walking. You can bend and twist your back but sti ll proceed slowly with these activities. WEEK 4 Stop using the brace for everything but the most difficult tasks. You should now be able to go on long walks and lift more weight as directed. Add more bending and twisting as tolera becka. WEEK 5 Stop using the brace for daily use. I would encourage you to use the brace in the future f or activities that you know might aggravate your back or cause pain. You should still work to strengthen your back and use good technique when slat pickler things and bending. Electronica lly signed by STEVE Ricardo at 06/04/2015 1:38 PM PST documented in this encounter Progress Notes Jovan Alford PA - 06/04/2015 1:39 PM PSTFormatting of this note might be differen t from the original. STEVE Mills [address] [facility] [place] [address] [place], [place] [id number] FAX: NEUROSURGERY FOLLOW-UP CHIEF COMPLAINT: Chief Complaint Patient presents with Follow-up 4w PO HISTORY OF PRESENT ILLNESS: The patient is a 65 y.o. male that had a lumbar fusion around 4 weeks ago. He returns and overall is doing good. The patient complains of some tingling in his legs but overall he feels like he is improving well. The patient has been walking as much as directed. He is not still taking pain medications at this point. The patient flores s had no issues with his surgical site. CURRENT MEDICATIONS: Current Outpatient Prescriptions Medication Sig Dispense Refill cholecalciferol (VITAMIN D-3) 1,000 units capsule Take 1,000 Units by mouth Daily. cyclobenzaprine (FLEXERIL) 10 mg tablet Take 1 tablet by mouth every 8 hours as needed for Muscle spasms. 90 tablet 3 KQE-ADL-Nqaaejj E (OMEGA-3 COMPLEX PO) Take 2 capsules by mouth Daily. lactulose 10 g/15 mL solution Take 30 mLs by mouth Daily as needed. 240 mL PRN [place]-3 Krill Oil 500 MG CAPS Take 1 capsule by mouth Daily. oxyCODONE-acetaminophen (PERCOCET) 5-325 mg per tablet Take 1-2 tablets by mouth every 4 hours as needed for Pain. 120 tablet 0 PLANT STEROLS AND STANOLS PO Take by mouth 2 times daily. Red Yeast Rice 600 MG CAPS Take 1 capsule by mouth 2 times daily. tamsulosin (FLOMAX) 0.4 mg CAPS Take 1 capsule by mouth daily (after breakfast). 30 cap zena 0 No current facility-administered medications for this visit. ALLERGIES: No Known Allergies SOCIAL HISTORY: The patient reports that he has never smoked. He has never used smokeless tobacco. He repo rts that he drinks alcohol. He reports that he does not use illicit drugs. INTERIM PHYSICAL EXAMINATION: Blood pressure 112/76, pulse 74, resp. rate 20, height 1.727 m (5' 8"), weight 83.462 kg (1 84 lb). Body mass index is 27.98 kg/(m^2). GENERAL: Raúl Day is in no [...] and were reviewed with the patient today. There have been no interval changes since the immediate postoperative films . Complete fusion has not yet occurred, but this is normal and would not be expected at thi s time. ASSESSMENT: Encounter Diagnoses Name Primary? Lumbar spinal stenosis Yes Lumbar radiculopathy Foraminal stenosis of lumbar region Facet arthropathy, lumbar S/P lumbar fusion Past Medical History Diagnosis Date Hernia cerebri (HCC) Degenerative disc disease, lumbar Hard of hearing bilateral hearing aids PLAN: Overall, the patient is doing fairly well. The patient can see some improvements but frankie nues to recover from recent surgery. The patient is planning to go home today after being a t a assisted facility. He did start anti-inflammatories for his knee discomfort. I' ve asked him to follow-up with his primary care provider for direction on how to treat his k nee pain without anti-inflammatories. A median with a list of questions 2 pages long. All of these were reviewed with him in detail. All of his questions were answered fully. He di d ask for refill of his pain medication to help with pain control. This was again provided I increased the patient s activities now allowing 15 pound lifting. The patient should i ncrease range of motion activities as tolerated. I would like the patient to advance slowly with this process and discussed this at length during today's visit. I would also like the patient to continue with postoperative rehabilitation and to advance with therapy as gaudencio jovel. We discussed that we can provide pain medications for up to two additional months. We disc ussed the need to continue tapering pain medication. If they need longer term pain medicati on, they should begin working on either pain management or with the primary care provider. I am hoping to see improvement over the coming weeks to months and plan to continue to foll ow this patient. The patient will follow-up in clinic in around 8 weeks for re-evaluation. ELECTRONICALLY SIGNED BY: STEVE Mills, 06/04/2015 13:39 documented in th is encounter Plan of [...] [place], | | | | | | [place] [address] | | | | | | [phone] | | | | | | | | +--------+---------+ + + + + + +--------+ + + | Name | Type | Priori | Associated Diagnoses | Order Schedule | | | | ty | | | + + +--------+ + + | OUTPATIENT PT | Outpatient | Routin | Lumbar spinal | Ordered: 06/04/2015 | | EXTERNAL | Referral | e | stenosis Lumbar | | | | | | radiculopathy | | | | | | Foraminal stenosis | | | | | | of lumbar region | | | | | | Facet arthropathy, | | | | | | lumbar S/P lumbar | | | | | | fusion | | + + +--------+ + [...] priors. FINDINGS: Again seen are hardware | . [facility]ATH[facility] | | for posterior fusion from L3 through S1 with spacer hardware at these [facility] | | levels. Slight left curvature of [...] | + + + + + | [facility] | [address] | [place] | [phone] | | [facility] | | [address] | | | - IMAGING | | | | + + + + + documented in this encounter Visit Diagnoses + + | Diagnosis | + + | Lumbar spinal stenosis - Primary Spinal stenosis, lumbar region, without [...]
--- OUTSIDE RECORDS SUMMARY | ~2020-01-09 | XMS | Encounter Summary ---
Demographics + + + | Address | [address] | | | [place] [address] | + + + | Home Phone | | + + + | Preferred Language | Unknown | + + + | Marital Status | Single | + + + | Jain Affiliation | 1077 | + + + [...] [place] | | | | | [address] | | + + + + + | Santo Cervantes | ECON | Unknown | | + + + + + Care Team Providers + +------+ + | Care Parts Specialist Name | Role | Phone | + +------+ + | Shubham Maurer MD | PCP | | + +------+ + Encounter Details +--------+ + + + + | Date | Type | Department | Care Team | Description | +--------+ + + + + | 11/14/ | Episode | [facility] [place] | Elsa Delaney, | | | 2017 | Changes | ORTHOPEDIC SURGERY | Inside Sales Advertising Executive | | | | | [address] | | | | | | [place] | | | | | | [address] | | | | | | [phone] | | | +--------+ + + + [...] | | | | | | [place] [address] | | | | | | [phone] | | | | | | | | +--------+---------+ + + + documented as of this encounter Visit Diagnoses Not on filedocumented in this encounter"
--- OUTSIDE RECORDS SUMMARY | ~2020-01-09 | XMS | Encounter Summary ---
Demographics + + + | Address | [address] | | | [place] [address] | + + + | Home Phone [...] + + | Author | [facility] | | | and [place] | + + + | Organization | [facility] | | | [...] [place] | | | | | [address] | | + + + + + | Santo Cervantes | ECON | Unknown | | + + + + + Care Team Providers + +------+ + | Care Consumer Loan Processor Name | Role | Phone | + +------+ + | Shubham Maurer MD | PCP | | + +------+ + Reason for Visit +--------+--------+ + | Reason | Onset | Comments | | | Date | | +--------+--------+ + | Other | 04/10/ | | | | 2015 | | +--------+--------+ + Encounter Details +--------+ + + + + | Date | Type | Department | Care Team | Description | +--------+ + + + + | 04/10/ | Telephone | [facility] [place] | Min Tello MD | Other | | 2016 | | NEUROSURGERY [address] | [address] | | | | | [address] | [place] [address] | | | | | [place], [place] | [phone] | | | | | [address] | | | | | | [phone] | | | +--------+ + + + [...] this encounter Miscellaneous Notes Telephone Encounter - Hansa Clemens RN - 04/10/2015 9:07 AM PSTCalled and advised Anum herron per Jovan Alford PA-C, he verbalized understanding, no further questions at this time.El ectronically signed by Hansa Clemens RN at 04/10/2015 9:10 AM PSTTelephone Encounter - Jovan Arias PA - 04/10/2015 9:02 AM PSTJanak should hold off on giving any blood or b lood products until he is healing up from surgery. After surgery, at his 3 month appointmen t, he may ask about resuming his blood donation at that time elephone Encounter - Sarah Mclean - 2015 8:29 AM PSTRaúl gives blood regularly. He is scheduled to give platelets on 6. He has an upcoming surgery scheduled with Dr. Tello on 05/05/15. Does Dr. Tello advise elena nst him continuing to give blood prior to surgery? documented in this encounter Plan of Treatment [...] | | | | | | [place] [address] | | | | | | [phone] | | | | | | | | +--------+---------+ + + + documented as of this encounter Visit Diagnoses Not on filedocumented in this encounter"
--- OUTSIDE RECORDS SUMMARY | ~2020-01-09 | XMS | Encounter Summary ---
Demographics + + + | Address | [address] | | | [place] [address] | + + + | Home Phone [...] [place] | | | | | [address] | | + + + + + | Santo Cervantes | ECON | Unknown | | + + + + + Care Team Providers + +------+ + | Care Surgical Services Director Name | Role | Phone | + +------+ + | Shubham Maurer MD | PCP | | + +------+ + Encounter Details +--------+ + + + + | Date | Type | Department | Care Team | Description | +--------+ + + + + | 03/26/ | Hospital | [facility] | Min Tello MD | | | 2014 | Encounter | MED CTR LAB[facility]ORY | [address] | | | | | [address] | [place] [address] | | | | | [place] | [phone] | | | | | [address] | | | | | | [phone] | | | +--------+ + + + [...] | + + + +---------+--------+ + | KZL-SUZ-Qaldbif E | Take 2 capsules by | [...] | + + + +---------+--------+ + | [place]-3 Krill Oil | Take 2 capsules by [...] | | | | | | [place] [address] | | | | | | [phone] | | | | | | | | +--------+---------+ + + + documented as of this encounter Visit Diagnoses Not on filedocumented in this encounter"
--- OUTSIDE RECORDS SUMMARY | ~2020-01-09 | XMS | Encounter Summary ---
Demographics + + + | Address | [address] | | | [place] [address] | + + + | Home Phone [...] Author + + + | Author | [facility] | | | and [place] | + + + | Organization | [facility] | | | [...] [place] | | | | | [address] | | + + + + + | Santo Cervantes | ECON | Unknown | | + + + + + Care Team Providers + +------+ + | Care Director Mobile Media Solutions Name | Role | Phone | + +------+ + | Shubham Maurer MD | PCP | | + +------+ + Encounter Details +--------+ + + + + | Date | Type | Department | Care Team | Description | +--------+ + + + + | 03/26/ | Preadmit | [facility] | Min Tello MD | Lumbar | | 2015 | Visit | [facility] | [address] | radiculopathy; Other | | | | CLINIC [address] | [place] [address] | secondary | | | | [place] | [phone] | scoliosis, lumbar | | | | [address] | | region; Degenerative | | | | [phone] | | disc disease, | | | [...] | | | | | | [place] [address] | | | | | | [phone] | | | | | | | [...] | | | | MARYAM VILLALPANDO MD ([id number]) | | | | | | on [...] | | Eosinophils | | | [facility] | | [...] | | Neutrophils | | K/uL | [facility]ATH[facility] | | | | | [...] [address] | [place] | [phone] | | [facility] | | [address] | | | - LABORATORY | | [...] | eGFR, | >60 | >=60 | [facility] | | | non- | | mL/min/1.73m2 | [facility] | | | [place] | | | MEDICAL | | | [...] | ine Ratio | | | [facility] | | [...] [address] | [place] | [phone] | | [facility] | | [address] | | | - LABORATORY | | [...] | + + + + + | [facility] | [address] | [place] | [phone] | | [facility] | | [address] | | | - LABORATORY | | [...]
--- OUTSIDE RECORDS SUMMARY | ~2020-01-09 | XMS | Encounter Summary ---
Demographics + + + | Address | [address] | | | [place] [address] | + + + | Home Phone | | + + + | Preferred Language | Unknown | + + + | Marital Status | Single | + + + | Taoist Affiliation | PRO | + + + [...] Team Providers + +------+ + | Care Photographer Lithographic Name | Role | Phone | + [...] | | | | [address] | [place] [address] | | | | | [place], [place] | [phone] | | | | | [address] | | | | | | [phone] | | | +--------+ + + + [...]
--- OUTSIDE RECORDS SUMMARY | ~2020-01-09 | XMS | Encounter Summary ---
Demographics + + + | Address | [address] | | | [place] [address] | + + + | Home Phone | | + + + | Preferred Language | Unknown | + + + | Marital Status | Single | + + + | Druze Affiliation | 1077 | + + + [...] [place] | | | | | [address] | | + + + + + | Santo Cervantes | ECON | Unknown | | + + + + + Care Team Providers + +------+ + | Care Sports Specialist Name | Role | Phone | + +------+ + | Shubham Maurer MD | PCP | | + +------+ + Reason for Visit + +--------+ + | Reason | Onset | Comments | | | Date | | + +--------+ + | Post-op Question | 08/17/ | | | | 2016 | | + +--------+ + Encounter Details [...] | | [address] | [place] [address] | | | | | [place], [place] | [phone] | | | | | [address] | | | | | | [phone] | | | +--------+ + + + [...] this encounter Miscellaneous Notes Telephone Encounter - Andria Greene RN - 08/18/2016 2:25 PM PDTPatient clarified that he has been doing PT-suggested core exercises as well as core exercises found online every d ay and he is wondering if it would be ok to go to 3 times per week, acknowledging that Dr. Neal loredo recommended continuing core strengthening exercises for life. Discussed with patient that generally as one builds strength and recovers, it is expected t hat they advance in activities rather than decrease. To further strengthen core, he may nee d to change routine to include increased intensity, frequency or type of exercise and PT wou ld be a great resource to help him modify his exercises and guide his workouts for optimal b enefits. Patient verbalized understanding and was agreeable to scheduling appointment with PT to dis cuss and modify workout as recommended.Electronically signed by Andria Greene RN at 08/18 2:37 PM PDTTelephone Encounter - Andria Greene RN - 08/18/2016 2:04 PM PDTLeft cory essage on home & cell # for patient to return call for message from PA elephone Encounter - Jovan Alford PA-C - 08/18/2016 12:56 PM PDTThese exercises were given to him as h ome exercises by physical therapy. We have therapy direct this. If he needs further instru ction, he may benefit from a few more visits with therapy elephone Encounter - Andria Greene RN - 08/17 2:57 PM PDTS/p 05/05/2015 L3-4, L4-5 Lateral Anterior Interbody Fusion, L5-S1 Transfora paulette Lumbar Interbody Fusion, Laminectomy @ L3-4, L4-5, L5-S1 Last seen 06/15/2016 No recommendations for specific exercises noted in office visit notes since surgery. Carey porras. elephone En delma - Phoenix Greene - 08/17/2016 2:51 PM PDTPatient called in with some questions about the core exercises that were discuss with Dr Tello at his last office visit. Please call him back to discuss documented i n this encounter Plan of Treatment +--------+---------+ + + + | Date | Type | Specialty | Care Team | Description | +--------+---------+ + + + | 01/24/ | Office | Cardiology | Christiano Frost, | | | 2019 | Visit | | MD [address] | | | | | | [place], | | | | | | [place] [address] | | | | | | [phone] | | | | | | | | +--------+---------+ + + + documented as of this encounter Visit Diagnoses Not on filedocumented in this encounter"
--- OUTSIDE RECORDS SUMMARY | ~2020-01-09 | XMS | Encounter Summary ---
Demographics + + + | Address | [address] | | | [place] [address] | + + + | Home Phone | | + + + | Preferred Language | Unknown | + + + | Marital Status | Single | + + + | Presybeterian Affiliation | 1077 | + + + | Race | White | + + + | Ethnic Group | Not or | + + + Author + + + | Author | [facility] | | | and [place] | + + + | Organization | [facility] | | | [...] [place] | | | | | [address] | | + + + + + | Santo Cervantes | ECON | Unknown | | + + + + + Care Team Providers + +------+ + | Care Property And Supply Officer Name | Role | Phone | + +------+ + | Shubham Maurer MD | PCP | | + +------+ + Encounter Details +--------+ + + + + | Date | Type | Department | Care Team | Description | +--------+ + + + + | 11/08/ | Hospital | [facility] | Julius [place]ak | Pain in both knees, | | 2018 | Encounter | [facility] | MD Liliana [address] [facility] | unspecified | | | | [address] | [place] | chronicity | | | | [place] | [id number] | | | | | [address] | | | | | | [phone] | | | +--------+ + + + [...] | + + + +---------+--------+ + | Black | Take by mouth. | | 0 | | | | Pepper-Turmeric | | | | | 8 | | (TURMERIC | | | | | | | COMPLEX/BLACK | | | | | | | PEPPER) 3-500 MG | | | | | | | CAPS | | | | | | + + + +---------+--------+ + | diclofenac | Take 75 mg by mouth | | 0 | | | | (VOLTAREN) 75 mg EC | 2 times daily. | | | | 8 | | tablet | | | | | | + + + +---------+--------+ + | fish oil 1,000 mg | Take 1,000 mg by | | 0 | | | | capsule | mouth Daily. | | | | 8 | + + + +---------+--------+ + | Misc Natural | Take 1 tablet by | | 0 | | | | Products | mouth Daily. | | | | 8 | | (GLUCOSAMINE CHOND | | | | | | | COMPLEX/MSM PO) | | | | | | + + + +---------+--------+ + | [place]-3 Fatty | Take 2 capsules by | [...] | | | | | | [place] [address] | | | | | | [phone] | | | | | | | | +--------+---------+ + + + documented as of this encounter Procedures + +--------+ + + + | Procedure Name | Priori | Date/Time | Associated Diagnosis | Comments | | | ty | | | | + +--------+ + + + | XR KNEE LEFT 4 + VW | Routin | 11/08/2017 | Pain in both | Results for this | | | e | 2:18 PM | knees, unspecified | procedure are in the | | | | PDT | chronicity | results section. | + +--------+ + + + | XR KNEE RIGHT 1 - 2 | Routin | 11/08/2017 | Pain in both | Results for this | | VW | e | 2:18 PM | knees, unspecified | procedure are in the | | | | PDT | chronicity | results section. | + [...]
--- OUTSIDE RECORDS SUMMARY | ~2020-01-09 | XMS | Encounter Summary ---
Demographics + + + | Address | [address] | | | [place] [address] | + + + | Home Phone [...] + + + | Author | [facility] | | | and [place] | + + + | Organization | [facility] | | | [...] [place] | | | | | [address] | | + + + + + | Santo Cervantes | ECON | Unknown | | + + + + + Care Team Providers + +------+ + | Care E M Assembler Name | Role | Phone | + [...] | | [address] | [place] [address] | | | | | [place] | [phone] | | | | | [address] | | | | | | [phone] | | | +--------+ + + + [...] [place], | | | | | | [place] [address] | | | | | | [phone] | | | | | | | | +--------+---------+ + + + documented as of this encounter Results XR Spine Survey AP and Lateral (11/29/2014 3:04 PM PDT) + + | Specimen | + + | | + + + + + | Narrative | Performed At | + + + | EXAM: XR SPINE SURVEY AP AND LATERAL dated 11/29/2014 1:45 PM | [facility] | | HISTORY:back pain COMPARISON: None. FINDINGS:8 views of the | [facility] | | spine. There is a levoconvex curvature in the upper thoracic | [facility] | | spine. The apex [...] + + | Performing | Address | City/State/[facility] | Phone Number | | Organization | | | | + + + + + | [address] | [address] | [place] | [phone] | | [facility] | | [address] | | | - IMAGING | | | | + + + + + documented in this encounter Visit Diagnoses + + | Diagnosis | + + | Other back pain - Primary | + + documented in this encounter"
--- OUTSIDE RECORDS SUMMARY | ~2020-01-09 | XMS | Encounter Summary ---
Demographics + + + | Address | [address] | | | [place] [address] | + + + | Home Phone | | + + + | Preferred Language | Unknown | + + + | Marital Status | Single | + + + | Confucianist Affiliation | 1077 | + + + | Race | White | + + + | Ethnic Group | Not or | + + + Author + + + | Author | [facility] | | | and [place] | + + + | Organization | [facility] | | | [...] [place] | | | | | [address] | | + + + + + | Santo Cervantes | ECON | Unknown | | + + + + + Care Team Providers + +------+ + | Care Facility Designer Name | Role | Phone | + +------+ + | Shubham Maurer MD | PCP | | + +------+ + Reason for Visit +--------+--------+ + | Reason | Onset | Comments | | | Date | | +--------+--------+ + | Other | 05/08/ | | | | 2018 | | +--------+--------+ + Encounter Details +--------+ + + + + | Date | Type | Department | Care Team | Description | +--------+ + + + + | 05/08/ | Telephone | [facility] | Damian Escobedo | Other | | 2018 | | ORTHOPEDIC SURGERY | [address] | | | | | [address] | [place] | | | | | [place] | [place] [address] | | | | | [address] | [phone] | | | | | [phone] | | | +--------+ + + + [...] this encounter Miscellaneous Notes Telephone Encounter - Karuna Burgos - 05/09/2018 3:00 PM PSTLeft message for kacie swenson to call office. elephone Encounter - Emma Panda RN - 05/09/2018 11:38 AM PSTRx sent to pharmacy. Please call patient and n otify. elephone Encounter - Jacinta Omer CNA - 05/08/2018 11:08 AM PSTPt called in and stated he is needing antibi otics for dental work. Pt states he is having dental work done in the next couple weeks. Ple ase call patient with any further questions. Thank you documented in this encounter Plan of Treatment +--------+---------+ + + + | Date | Type | Specialty | Care Team | Description | +--------+---------+ + + + | 01/24/ | Office | Cardiology | Christiano Frost, | | | 2019 | Visit | | MD [address] | | | | | | [place], | | | | | | [place] [address] | | | | | | [phone] | | | | | | | | +--------+---------+ + + + documented as of this encounter Visit Diagnoses Not on filedocumented in this encounter"
--- OUTSIDE RECORDS SUMMARY | ~2020-01-09 | XMS | Encounter Summary ---
Demographics + + + | Address | [address] | | | [place] [address] | + + + | Home Phone [...] Author | [facility] | | | and [place] | + + + | Organization | [facility] | | | and [place] | + [...] [place] | | | | | [address] | | + + + + + | Santo Cervantes | ECON | Unknown | | + + + + + Care Team Providers + +------+ + | Care Roving Winder Name | Role | Phone | + +------+ + | Shubham Maurer MD | PCP | | + +------+ + Encounter Details +--------+ + + + + | Date | Type | Department | Care Team | Description | +--------+ + + + + | 05/04/ | Orders Only | [facility] [place] | Min Tello MD | Knee pain, acute, | | 2016 | | NEUROSURGERY [address] | [address] | unspecified | | | | [address] | [place] [address] | laterality (Primary | | | | [place] | [phone] | Dx) | | | | [address] | | | | | | [phone] | | | +--------+ + + + [...] | | | | | | [place] [address] | | | | | | [phone] | | | | | | | | +--------+---------+ + + + documented as of this encounter Visit Diagnoses + + | Diagnosis | + + | Knee pain, acute, unspecified laterality - Primary | + + documented in this encounter"
--- OUTSIDE RECORDS SUMMARY | ~2020-01-09 | XMS | Encounter Summary ---
Demographics + + + | Address | [address] | | | [place] [address] | + + + | Home Phone [...] | Author | [facility] | | | and [place] | + + + | Organization | [facility] | | | [...] [place] | | | | | [address] | | + + + + + | Santo Cervantes | ECON | Unknown | | + + + + + Care Team Providers + +------+ + | Care Retort Furnace Helper Name | Role | Phone | [...] | | | | right knee | MD [address] | [address] | | | | | Pain in left | [address] | [place] | | | | | knee | [place], | [place], [place] | | | | | Procedures | [place] [address] | [address] Phone: | | | | | FOLLOW UP | Phone: | [phone] | | | | | | [phone] | Fax: | | | | | | Fax: | [phone] | | | | | | [phone] | | +--------+--------+ + + + + Encounter Details +--------+---------+ + + + | Date | Type | Department | Care Team | Description | +--------+---------+ + + + | 03/08/ | Office | [facility] | NowakJulius allison | Left knee pain, | | 2019 | Visit | ORTHOPEDIC SURGERY | MD Nikole Ford | unspecified | | | | [address] [place] | [place] | chronicity (Primary | | | | [place] | [address] | Dx); Primary | | | | [address] | | osteoarthritis of | | | | [phone] | | left knee | +--------+---------+ + [...] Julius Nowak MD - 03/08/2019 3:15 PM Lindsey turns for follow-up of his left knee. [...] intermittent pain. He therefore plans to con diane to manage his symptoms with vyje-kvi-jrdlago medication and will contact us in the [...] [place], | | | | | | [place] [address] | | | | | | [phone] | | | | | | | [...]
--- OUTSIDE RECORDS SUMMARY | ~2020-01-09 | XMS | Encounter Summary ---
Demographics + + + | Address | [address] | | | [place] [address] | + + + | Home Phone [...] Author | [facility] | | | and [place] | + + + | Organization | [facility] | | | and [...] [place] | | | | | [address] | | + + + + + | Santo Cervantes | ECON | Unknown | | + + + + + Care Team Providers + +------+ + | Care Tube Molder Fiberglass Name | Role | Phone | + +------+ + | Shubham Maurer MD | PCP | | + +------+ + Reason for Visit +---------+--------+ + | Reason | Onset | Comments | | | Date | | +---------+--------+ + | Post Op | 05/14/ | | | | 2015 | | +---------+--------+ + Encounter Details +--------+ + + + + | Date | Type | Department | Care Team | Description | +--------+ + + + + | 05/14/ | Telephone | [facility] [place] | Min Tello MD | Post Op | | 2016 | | NEUROSURGERY [address] | [address] | | | | | [address] | [place] [address] | | | | | [place] | [phone] | | | | | [address] | | | | | | [phone] | | | +--------+ + + + [...] this encounter Miscellaneous Notes Telephone Encounter - Sadia Alba RN - 05/14/2015 1:15 PM PSTProcedure: L3-4, L4-5 Lateral Anterior Interbody Fusion, L5-S1 Transforaminal Lumbar Interbody Fusion, Laminectomy @ L3-4, L4-5, L5-S1 Date of Surgery: 05/05/15 1. How are you feeling (pain type/often)? Patient reports that his right knee is hurting d ue to arthritis. 2. If pain, where (Legs/surgical site)? Constant right knee pain, and intermittent low back and right hip pain. Patient reports the pain is an aching type of pain. 3. Weakness/Numbness (New onset)? Numbness on left pinky and left ring finger present inte rmittently at night. Left leg weakness since surgery. 4.Taking pain meds (Name/Dosage)? Patient is currently talking 1 oxyCODONE-acetaminophen ( PERCOCET) 5-325 mg per tablet Q4H. 5.Loss of Bowel or Bladder (When/Chronic)? No Constipation? Yes, last BM was 05/13/15 6.Ambulating (How often)? Patient reports that he is ambulating Q45min. SURGICAL ISSUES 1.What does the dressing look like? Dry and intact. No apparent issues. 2.Is there drainage from the site? No If yes, What does it look like? No 3.Do you have a fever? No 4.Follow up appointments? 06/04/15 at 1300 with Chuck; 08/05/[address] Tello. 5.What could we have done to make your visit better? Patient reports that [facility] people would try and get a hold of him but had difficulty doing so. 6. Has preoperative pain improved? Patient reports that his pain has improved and that his pain prior to surgery has improved greatly. Patient states that his Diclofenac was stopped 04/27/15 7 days prior to his surgery. This medication is for arthritis on his Right Knee. Patient reports that his right knee pain has been increasing, and is wondering if he can start taking his Diclofenac again or is there so mething else that is to be prescribed. Also, patient reports numbness on left pinky and left ring finger present intermittently at night. Left leg weakness since surgery. Patient infor med that we will give him a call back. Please Advise. documented in this encounter Plan of Treatment +--------+---------+ + + + | Date | Type | Specialty | Care Team | Description | +--------+---------+ + + + | 01/24/ | Office | Cardiology | Christiano Frost, | | | 2019 | Visit | | [address] | | | | | | [place], | | | | | | [place] [address] | | | | | | [phone] | | | | | | | | +--------+---------+ + + + documented as of this encounter Visit Diagnoses Not on filedocumented in this encounter"
--- OUTSIDE RECORDS SUMMARY | ~2020-01-09 | XMS | Encounter Summary ---
Demographics + + + | Address | [address] | | | [place] [address] | + + + | Home Phone | | + + + | Preferred Language | Unknown | + + + | Marital Status | Single | + + + | Jewish Affiliation | 1077 | + + + | Race | White | + + + | Ethnic Group | Not or | + + + Author + + + | Author | [facility] | | | and [place] | + + + | Organization | [facility] | | | [...] [place] | | | | | [address] | | + + + + + | Santo Cervantes | ECON | Unknown | | + + + + + Care Team Providers + +------+ + | Care Lay Out Inspector Name | Role | Phone | + +------+ + | Shubham Maurer MD | PCP | | + +------+ + Reason for Visit + + + | Reason | Comments | + + + | Follow-up | S/P: L3-5 AURA, L5-S1 DREW BARRIOS L3-S1 on 05/05/15 12wk po | + + + Encounter Details +--------+---------+ + + + | Date | Type | Department | Care Team | Description | +--------+---------+ + + + | 08/19/ | Office | [facility] [place] | Min Tello MD | S/P lumbar fusion | | 2016 | Visit | NEUROSURGERY [address] | [address] | (Primary Dx) | | | | [address] | [place] [address] | | | | | [place] | [phone] | | | | | [address] | | | | | | [phone] | | | +--------+---------+ + + + [...] t he original. Min Tello MD [address] [facility], [address] [place], [place] [address] FAX: NEUROSURGERY FOLLOW-UP CHIEF COMPLAINT: Chief Complaint [...] every 6 hours as needed for Pain. [place]-3 Krill Oil 500 MG CAPS Take 1 [...] go home today after being at a correction facility. He did start anti-inflammatories for his [...] hope that they can avoid additional surgery. shelter pain medication does not appear to be [...] [place], | | | | | | [place] [address] | | | | | | [phone] | | | | | | | [...]
--- OUTSIDE RECORDS SUMMARY | ~2020-01-09 | XMS | Encounter Summary ---
Demographics + + + | Address | [address] | | | [place] [address] | + + + | Home Phone [...] Author + + + | Author | [facility] | | | and [place] | + + + | Organization | [facility] | | | and [...] [place] | | | | | [address] | | + + + + + | Santo Cervantes | ECON | Unknown | | + + + + + Care Team Providers + +------+ + | Care President Commercial Bank Name | Role | Phone | + +------+ + | Shubham Maurer MD | PCP | | + +------+ + Reason for Visit +--------+--------+ + | Reason | Onset | Comments | | | Date | | +--------+--------+ + | Other | 05/01/ | | | | 2015 | | +--------+--------+ + Encounter Details +--------+ + + + + | Date | Type | Department | Care Team | Description | +--------+ + + + + | 05/01/ | Telephone | [facility] [place] | Min Tello MD | Other | | 2016 | | NEUROSURGERY [address] | [address] | | | | | [address] | [place] [address] | | | | | [place], [place] | [phone] | | | | | [address] | | | | | | [phone] | | | +--------+ + + + [...] Notes Telephone Encounter - Sarah Mclean - 05/01/2015 3:09 PM PSTAll presurgical check-in instructions given Surgery date: 05/05/15 Check-in Time: 12:20 p.m. No solids or liquids after midnight the night before surgery. Follow the cleansing instructions provided beginning the night before surgery after you julienne wer or bathe. No showering the morning of surgery. Please do not wear jewelry, or contact lenses to surgery check-in. If you have dentures, hearing aids, or glasses please bring the cases with you to check-in. Raúl verbalized understanding. elephone Encounter - Mily Hernandez - 05/01/2015 2:25 PM PSTPatient called about his check in time for kaylar y he would like a call back on his cell phone [phone] signed by Mily Hernandez at 05/01/2015 2:33 PM PSTdocumented in this encounter Plan of [...] | | | | | | [place] [address] | | | | | | [phone] | | | | | | | | +--------+---------+ + + + documented as of this encounter Visit Diagnoses Not on filedocumented in this encounter"
--- OUTSIDE RECORDS SUMMARY | ~2020-01-09 | XMS | Encounter Summary ---
Demographics + + + | Address | [address] | | | [place] [address] | + + + | Home Phone [...] [place] | | | | | [address] | | + + + + + | Santo Cervantes | ECON | Unknown | | + + + + + Care Team Providers + +------+ + | Care Proof Load Mechanic Name | Role | Phone | + +------+ + | Shubham Maurer MD | PCP | | + +------+ + Encounter Details +--------+ + + + + | Date | Type | Department | Care Team | Description | +--------+ + + + + | 06/03/ | Hospital | [facility] | Jovan Alford | Lumbar | | 2016 | Encounter | MED CTR XRAY [address] | [address] | radiculopathy; S/P | | | | [place] | [address] [place] | lumbar fusion | | | | [place] [address] | [id number] | | | | | [phone] | | | +--------+ + + + [...] Units by | | 0 | | 0525/ | | (VITAMIN D-3) 1,000 | mouth [...] + + + +---------+ + + | TZR-GLT-Xxdsepy E | Take 2 capsules by | [...] + + + +---------+ + + | [place]-3 Krill Oil | Take 2 capsules by [...] | | | | | | [place] [address] | | | | | | [phone] | | | | | | | [...] priors FINDINGS: There is stable hardware | [facility] | | for posterior fusion from L3 through S1 with spacer hardware at these [facility] | | levels. Moderate spondylosis is observed. [...] L3 through S1.Dictated and Signed by: Faisal gNuyen MD | | Electronically signed: 06/04/2015 11:41 [...] [address] | [address] | [place] | [phone] | | [facility] | | [address] | | | - IMAGING | | | | + + + + + documented in this encounter Visit Diagnoses + + | Diagnosis | + + | Lumbar radiculopathy Thoracic or lumbosacral neuritis or radiculitis, unspecified | + + | S/P lumbar fusion Arthrodesis status | + + documented in this encounter"
--- OUTSIDE RECORDS SUMMARY | ~2020-01-09 | XMS | Encounter Summary ---
Demographics + + + | Address | [address] | | | [place] [address] | + + + | Home Phone | | + + + | Preferred Language | Unknown | + + + | Marital Status | Single | + + + | Mandaeism Affiliation | 1077 | + + + [...] [place] | | | | | [address] | | + + + + + | Santo Cervantes | ECON | Unknown | | + + + + + Care Team Providers + +------+ + | Care Blocker And Cutter Contact Lens Name | Role | Phone | + [...] + + | 12/15/ | Office | [facility] | Julius Nowak | Pre-op testing | | 2018 | Visit | ORTHOPEDIC SURGERY | MD Liliana [address] | (Primary Dx); | | | | [address] [place] | [place] | Primary | | | | [place] | [address] | osteoarthritis of | | | | [address] | | both knees; Nocturia | | | | [phone] | | | +--------+---------+ + + + [...] + + + documented in this encounter H&P Notes Julius Nowak MD - 12/15/2017 3:00 PM PDTFormatting of this note might be differen t from the original. History of present illness: Raúl is a [...] Laterality Date CATARACT REMOVAL Bilateral 2017 in [place] HERNIA REPAIR Right [address] LUMBAR SPINE SURGERY Bilateral 05/05/2015 Procedure: L3-4, L4-5 Lateral Anterior Interbody Fusion, L5-S1 Transforaminal Lumbar Inter body Fusion, Laminectomy @ L3-4, L4-5, L5-S1; Surgeon: Min Tello MD; Location: [facility] MAIN OR TOE SURGERY Right VASECTOMY [...] inpatient care. documented in th is encounter Plan of Treatment +--------+---------+ + + + | Date | Type | Specialty | Care Team | Description | +--------+---------+ + + + | 01/24/ | Office | Cardiology | Christiano Frost, | | | 2019 | Visit | | MD [address] | | | | | | [place], | | | | | | [place] [address] | | | | | | [phone] | | | | | | | [...] + + + + + + | Clarity, | Clear | Clear | [facility] | | | Urine | [...] - 1.030 | [facility] | | | [place], | | | [facility] | | [...] + | [address] | [address] | [place] | [phone] | | [facility] | | [address] | | | - LABORATORY | | | | + + + + + Culture, MRSA (12/15/2017 4:53 PM PDT) + + + + + + | Component | Value | Ref Range | Performed | Pathologist | | | | | At | Signature | + + + + + + | Culture | Negative for MRSA by | | [facility] | | | | chromogenic agar method [...] ST. | [address] | [place] | [phone] | | [facility] | | [address] | | | - LABORATORY | | [...]
--- OUTSIDE RECORDS SUMMARY | ~2020-01-09 | XMS | Encounter Summary ---
Demographics + + + | Address | [address] | | | [place] [address] | + + + | Home Phone [...] + + + | Author | [facility] | | | and [place] | + + + | Organization | [facility] | | [...] [place] | | | | | [address] | | + + + + + | Santo Cervantes | ECON | Unknown | | + + + + + Care Team Providers + +------+ + | Care Funder Name | Role | Phone | + +------+ + | Atul Adkins MD | PCP | | + +------+ + Encounter Details +--------+ + + + + | Date | Type | Department | Care Team | Description | +--------+ + + + + | 11/11/ | Abstract | [facility] [place] | Min Tello MD | | | 2014 | | NEUROSURGERY [address] | [address] | | | | | [address] | [place] [address] | | | | | [place] | [phone] | | | | | [address] | | | | | | [phone] | | | +--------+ + + + [...] | | | | | | [place] [address] | | | | | | [phone] | | | | | | | | +--------+---------+ + + + documented as of this encounter Visit Diagnoses Not on filedocumented in this encounter"
--- OUTSIDE RECORDS SUMMARY | ~2020-01-09 | XMS | Encounter Summary ---
Demographics + + + | Address | [address] | | | [place] [address] | + + + | Home Phone [...] Author | [facility] | | | and [place] | + + + | Organization | [facility] | | [...] [place] | | | | | [address] | | + + + + + | Santo Cervantes | ECON | Unknown | | + + + + + Care Team Providers + +------+ + | Care Termite Exterminator Name | Role | Phone | + +------+ + | Shubham Maurer MD | PCP | | + +------+ + Reason for Visit + +--------+ + | Reason | Onset | Comments | | | Date | | + +--------+ + | Post-op Question | 07/04/ | | | | 2017 | | [...] | | [address] | [place] [address] | | | | | [place], [place] | [phone] | | | | | [address] | | | | | | [phone] | | | +--------+ + + + [...] Telephone Encounter - Andria Greene RN - 07/04/2017 11:38 AM PDTPost op: Yes 05/05/2015 L3-4, L4-5 Lateral Anterior Interbody Fusion, L5-S1 Transforaminal Lumbar Interbod y Fusion, Laminectomy @ L3-4, L4-5, L5-S1 Last seen 06/15/2016 (Omer) Reviewed chart notes and returned call to patient to discuss further. Patient is not havin g any symptoms of concern; just wanted to check if ok to use rototiller with the vibration a nd physical effort this involves. Patient acknowledged that he used the rototiller last spr ing and tolerated this activity well. Advised patient ok to advance activities as tolerated and recommended going slowly, doing the garden in sections rather than all at once with felicia e to recover between. If symptoms flare, go slower, use ice, medication as directed, and re st to recover. Patient verbalized understanding and reassurance. elephone Encounter - LeonorOfelia - 11/2017 11:14 AM PDTPatient was wondering if he is able to operate a rototiller now? Please advise. docume nted in this encounter Plan of Treatment +--------+---------+ + + + | Date | Type | Specialty | Care Team | Description | +--------+---------+ + + + | 01/24/ | Office | Cardiology | Christiano Frost, | | | 2019 | Visit | | MD [address] | | | | | | [place], | | | | | | [place] [address] | | | | | | [phone] | | | | | | | | +--------+---------+ + + + documented as of this encounter Visit Diagnoses Not on filedocumented in this encounter"
--- OUTSIDE RECORDS SUMMARY | ~2020-01-09 | XMS | Encounter Summary ---
Demographics + + + | Address | [address] | | | [place] [address] | + + + | Home Phone [...] Author + + + | Author | [facility] | | | and [place] | + + + | Organization | [facility] | | | [...] [place] | | | | | [address] | | + + + + + | Santo Cervantes | ECON | Unknown | | + + + + + Care Team Providers + +------+ + | Care Glass Cut Off Supervisor Name | Role | Phone | + +------+ + | Shubham Maurer MD | PCP | | + +------+ + Reason for Visit + +--------+ + | Reason | Onset | Comments | | | Date | | + +--------+ + | Medication Refill | 03/06/ | | | | 2017 | | + +--------+ + Encounter Details +--------+--------+ + + + | Date | Type | Department | Care Team | Description | +--------+--------+ + + + | 03/06/ | Refill | [facility] [place] | Damian Escobedo | Medication Refill | | 2017 | | ORTHOPEDIC SURGERY | [address] | | | | | [address] | [address] [place] | | | | | [place], [place] | [place] [address] | | | | | [address] | [phone] | | | | | [phone] | | | +--------+--------+ + + + [...] this encounter Miscellaneous Notes Telephone Encounter - Samira Guallpa - 03/06/2018 2:25 PM PSTPATIENT CALLED REQUEST PRE MEDICATION FOR A DENTAL PROCEDURE. DENTAL OFFICE NAME: [facility] D[facility] PROCEDURE DATE: next week PATIENT PHONE NUMBER: [id number] [facility] signed by Samira Guallpa at 8 2:28 PM PSTdocumented in this encounter Plan of [...] | | | | | | [place] [address] | | | | | | [phone] | | | | | | | | +--------+---------+ + + + documented as of this encounter Visit Diagnoses Not on filedocumented in this encounter"
--- OUTSIDE RECORDS SUMMARY | ~2020-01-09 | XMS | Encounter Summary ---
Demographics + + + | Address | [address] | | | [place] [address] | + + + | Home Phone [...] | Author | [facility] | | | and [place] | + + + | Organization | [facility] | | | [...] [place] | | | | | [address] | | + + + + + | Santo Cervantes | ECON | Unknown | | + + + + + Care Team Providers + +------+ + | Care Under Water Assistant Name | Role | Phone | + +------+ + | Shubham Muarer MD | PCP | | + +------+ + Reason for Visit + + + | Reason | Comments | + + + | Follow-up | F/U Xray's | + + + Encounter Details +--------+---------+ + + + | Date | Type | Department | Care Team | Description | +--------+---------+ + + + | 06/15/ | Office | [facility] | Min Tello MD | S/P lumbar fusion | | 2017 | Visit | NEUROSURGERY [address] | [address] | (Primary Dx) | | | | [address] | [place] [address] | | | | | [place], [place] | [phone] | | | | | [address] | | | | | | [phone] | | | +--------+---------+ + + + [...] from t he original. Min Tello MD [address] [place] [address], [address] [place], [place] [id number] FAX: NEUROSURGERY FOLLOW-UP CHIEF COMPLAINT: Chief Complaint [...] % cream Apply 1 Application topically Daily. [place]-3 Fatty Acids (OMEGA 3 PO) Take 2 [...] Tello MD, 07/06/2016 10:54 documented in this encou nter Plan of [...] | | | | | | [place] [address] | | | | | | [phone] | | | | | | | | +--------+---------+ + + + documented as of this encounter Visit Diagnoses + + | Diagnosis | + + | S/P lumbar fusion - Primary Arthrodesis status | + + documented in this encounter
--- OUTSIDE RECORDS SUMMARY | ~2020-01-09 | XMS | Encounter Summary ---
Demographics + + + | Address | [address] | | | [place] [address] | + + + | Home Phone | | + + + | Preferred Language | Unknown | + + + | Marital Status | Single | + + + | Anabaptism Affiliation | 1077 | + + + | Race | White | + + + | Ethnic Group | Not or | + + + Author + + + | Author | [facility] | | | and [place] | + + + | Organization | [facility] | | | [...] [place] | | | | | [address] | | + + + + + | Santo Cervantes | ECON | Unknown | | + + + + + Care Team Providers + +------+ + | Care Apprentice Plant Attendant Name | Role | Phone | + +------+ + | Shubham Maurer MD | PCP | | + +------+ + Encounter Details +--------+ + + + + | Date | Type | Department | Care Team | Description | +--------+ + + + + | 11/11/ | Orders Only | [facility] | Julius Nowak | Primary | | 2018 | | ORTHOPEDIC SURGERY | MD Liliana [address] | osteoarthritis of | | | | [address] [place] | [place] | both knees (Primary | | | | [place] | [address] | Dx); Pain in both | | | | [address] | | knees, unspecified | | | | [phone] | | chronicity | +--------+ + + [...] | | | | | | [place] [address] | | | | | | [phone] | | | | | | | [...]
--- OUTSIDE RECORDS SUMMARY | ~2020-01-09 | XMS | Encounter Summary ---
Demographics + + + | Address | [address] | | | [place] [address] | + + + | Home Phone [...] Author | [facility] | | | and [place] | + + + | Organization | [facility] | | [...] [place] | | | | | [address] | | + + + + + | Santo Cervantes | ECON | Unknown | | + + + + + Care Team Providers + +------+ + | Care Journeyman Level Acoustic Analyst Name | Role | Phone | + +------+ + | Shubham Cooper MD | PCP | | + +------+ + Reason for Visit +--------+--------+ + | Reason | Onset | Comments | | | Date | | +--------+--------+ + | Other | 10/07/ | | | | 2015 | | [...] | [address] | [place] [address] | | | | | [place], [place] | [phone] | | | | | [address] | | | | | | [phone] | | | +--------+ + + + [...] Notes Telephone Encounter - Sarah Mclean - 10/09/2015 10:07 AM PDTScheduled to see STEVE Ott tomorrow at 9:00. TTelephone Encounter - Jovan Alford PA - 10/09/2015 6:26 AM PDTI could see him jena orr morning at 0830 or 0900. Thank you elephone Encounter - Sarah Mclean - 10/08/2015 3:45 PM PDTCa ll returned to Dr. Cooper. Symptoms reported: patient reports that on xvx63wf he developed an onset of foot drop, bilaterally, with numbn ess on the dorsum of the right foot. Patient came into the office today flapping and draggi ng his foot down. Normal reflexes on the left side, but has a weak ankle lift on the right side with a weak dorsiflexion, numbness on the dorsum of the right foot. All new symptoms o glenys the past 2 weeks. No injury, no change in medications over the past 2 weeks. No advance d imaging done since the onset of symptoms. Dr. Cooper requests Raúl to be seen in the office this week. Please advise.Carole munguia signed by Sarah Mclean at 10/08/2015 3:50 PM PDTTelephone Huma - Yasmine Caruso - 10/08/2015 2:22 PM Estela Cooper called and wanted to inform the office about some symptoms Raúl is having. Dr cooper would like a call back at telephone number [phone] documented in this en counter Plan of Treatment +--------+---------+ + + + | Date | Type | Specialty | Care Team | Description | +--------+---------+ + + + | 01/24/ | Office | Cardiology | Christiano Frost, | | | 2019 | Visit | | [address] | | | | | | [place], | | | | | | [place] [address] | | | | | | [phone] | | | | | | | | +--------+---------+ + + + documented as of this encounter Visit Diagnoses Not on filedocumented in this encounter"
--- OUTSIDE RECORDS SUMMARY | ~2020-01-09 | XMS | Encounter Summary ---
Demographics + + + | Address | [address] | | | [place] [address] | + + + | Home Phone [...] [place] | | | | | [address] | | + + + + + | Santo Cervantes | ECON | Unknown | | + + + + + Care Team Providers + +------+ + | Care Contact Agent Name | Role | Phone | + +------+ + | Shubham Maurer MD | PCP | | + +------+ + Encounter Details +--------+ + + + + | Date | Type | Department | Care Team | Description | +--------+ + + + + | 06/15/ | Orders Only | [facility] [place] | Min Tello MD | Status post lumbar | | 2017 | | NEUROSURGERY [address] | spinal fusion | | | | [address] | [place] [address] | (Primary Dx) | | | | [place] | [phone] | | | | | [address] | | | | | | [phone] | | | +--------+ + + + [...] | | | | | | [place] [address] | | | | | | [phone] | | | | | | | [...] CT dated December 15, 2015. Radiographs | [facility] | | dated October 20, 2015. FINDINGS: Frontal and lateral views of the | [facility] | | lumbar spine. Posterior and [...] + | [address] | [address] | [place], [place] | [phone] | | [facility] | | [address] | | | - IMAGING | | | | + + + + + documented in this encounter Visit Diagnoses + + | Diagnosis | + + | Status post lumbar spinal fusion - Primary Arthrodesis status | + + documented in this encounter"
--- OUTSIDE RECORDS SUMMARY | ~2020-01-09 | XMS | Encounter Summary ---
Demographics + + + | Address | [address] | | | [place] [address] | + + + | Home Phone [...] | Author | [facility] | | | and [place] | + + + | Organization | [facility] | | [...] [place] | | | | | [address] | | + + + + + | Santo Cervantes | ECON | Unknown | | + + + + + Care Team Providers + +------+ + | Care Electromechanical Assembly Technician Name | Role | Phone | + +------+ + | Atul Adkins MD | PCP | | + +------+ + Reason for Visit +--------+--------+ + | Reason | Onset | Comments | | | Date | | +--------+--------+ + | Other | 12/19/ | Xrays | | | 2014 | | +--------+--------+ + Encounter Details +--------+ + + + + | Date | Type | Department | Care Team | Description | +--------+ + + + + | 12/19/ | Telephone | [facility] [place] | Min Tello MD | Other (Xrays) | | 2015 | | NEUROSURGERY [address] | [address] | | | | | [address] | [place] [address] | | | | | [place] | [phone] | | | | | [address] | | | | | | [phone] | | | +--------+ + + + [...] this encounter Miscellaneous Notes Telephone Encounter - Sonam Willett RN - 12/23/2014 2:53 PM PDTPatient called to resche dule follow up appointment. New appt is 02/28 @ 914. Patient verbalized understanding.Electr onically signed by Sonam Willett RN at 12/23/2014 3:30 PM PDTTelephone Encounter - Esmer Dash - 12/23/2014 9:17 AM PDTPatient left message via MyEdu: "Can you call W 12/25, or after that date?" 9 :17 AM PDTTelephone Encounter - Esmer Mathur - 12/23/2014 8:56 AM PDTPatient left messag e via [employer]: "Returning your call. Please call." elephone Encounter - Sonam Willett RN - 12/20/2014 9: 05 AM PDTLeft voicemail for call return.Electronically signed by Sonam Willett RN at 12/20 9:06 AM PDTTelephone Encounter - Sonam Willett RN - 12/19/2014 2:58 PM PDTLeft vo icemail for call return to relay Dr. Tello's message. Patient has follow up appointment to [facility] surgery 01/16 @ 1230. elephone Encounter - Min Tello MD - 12/19/2014 2:12 PM PDTI reviewed the x-rays. I recommend a L1-S1 surgery. He should be appointed back to discuss his options. Min Tello elephone Encounter - Sonam Lee RN - 12/19/2014 11:23 AM PDTScoliosis series xrays on [facility] from 11/29. Thanks. elephone Encounter - Yadira Hess - 12/19/2014 11:18 AM PDTPatient called in to inquire as to what was happeni ng next. He stated that he thought Dr. Tello wanted to schedule him to come back in after his x-rays but he has not heard from anyone. He would like a call back at his cell number liste d as [phone]. Please advise. documented in this encounter Plan of Treatment [...] | | | | | | [place] [address] | | | | | | [phone] | | | | | | | | +--------+---------+ + + + documented as of this encounter Visit Diagnoses Not on filedocumented in this encounter
--- OUTSIDE RECORDS SUMMARY | ~2020-01-09 | XMS | Encounter Summary ---
Demographics + + + | Address | [address] | | | [place] [address] | + + + | Home Phone [...] [place] | | | | | [address] | | + + + + + | Santo Cervantes | ECON | Unknown | | + + + + + Care Team Providers + +------+ + | Care Training And Development Coordinator Name | Role | Phone | + [...] | | | | Diagnoses | | [place], | | | | | Atrial | | Christiano Glass MD | | | | | flutter, | | [address] | | | | | unspecified | | [address] | | | | | type (HCC) | | [place] [address] | | | | | Procedures | | [place] | | | | | [place] | | [address] Phone: | | | | | CARDIOVERSIO | | [phone] | | | | | N ELECTIVE | | Fax: | | | | | ARRHYTHMIA | | [phone] | | | | | EXTERNAL CV [...] + + | 10/11/ | Anesthesia | [facility] | Roque Gar MD | | | 2020 | Event | CENTER CV INTRA OP | [address] | | | | | [address] | [place] [address] | | | | | [place], [place] | [phone] | | | | | [address] | | | | | | [phone] | | | +--------+ + + + + Anesthesia Record + + + + + | Procedure Name | Responsible | Anesthesia Start | Anesthesia Stop Time | | | Anesthesiologist | Time | | + + + + + | CV Incomplete | | | | | Procedure (N/A ) | | | | + + + + + +----+---+-------+---------+ | Da | T | Event | Comment | | te | i | | | | | m | | | | | e | | | +----+---+-------+---------+ | 07 | 0 | | | | /1 | 7 | | | | 7/ | 1 | | | | 20 | 2 | | | | 20 | | | | +----+---+-------+---------+ +------+ | Meds | +------+ + + + No medications | on file. | + + + + + | No agents on file. | + + + + | No blood administrations on file. | + + + + | No LDAs on file. | + + documented in this encounter Social [...] as of this encounter [place] Notes Anesthesia Preprocedure Evaluation - Roque Gar MD - 10/11/2019 4:40 PM PDT ANESTHESIA PREANESTHESIA EVALUATION Raúl Day 69 y.o. male 1950 [id number] Procedure(s): CV EP CARDIOVERSION (N/A ) Medical,anesthesia, drug, allergy histories reviewed, NPO status verified. (-) perioperative beta-bg/statin not given/taken, reason: not applicable/Not taking Be ta-Bg. Review of Systems / Med History Anesthesia History No anesthesia complications except where noted below. Family Anesthesia History Family Anesthesia Negative except where noted below. Cardiovascular Exercise tolerance >4 METS (+) Dysrhythmias: (+) atrial flutter, (+) PVD: , right carotid stenosis . Pulmonary Negative except where noted below. Gastrointestinal/Hepatic Negative except where noted below. Renal Negative except where noted below. Endocrine Negative except where noted below. Hematology/Other Negative except where noted below. Cancer Negative except where noted below. Neuromuscular (+) arthritis, back pain, CVA, scoliosis, chronic pain. Psychology Negative except where noted below. Physical Exam Airway MP III, TM >3 FB, Mouth opening >2 FB. Neck: full ROM, extends >30 degrees. Jaw protru natalya normal. Facial hair present: No Dental CV cardiovascular normal Rhythm regular. Rate normal. Pulm Clear to auscultation bilaterally. Neuro grossly normal. Anesthesia Plan ASA: 3 Type: MAC. Mod/deep sedtion Induction: Intravenous. Potential problems: None anticipated. Monitors: Standard ASA monitors. Consent statement: Anesthetic plan, alternatives, risks and benefits discussed with patient. Consenting person understands and agrees to proceed. Electronically Signed by: Roque Gar MD ESig date/time: 10/11/2019 4:40 PM PDT documented in this enco unter Plan of Treatment +--------+---------+ + + + | Date | Type | Specialty | Care Team | Description | +--------+---------+ + + + | 01/24/ | Office | Cardiology | Christiano Frost, | | 2019 | Visit | | [address] | | | | | | [place], | | | | | | [place] [address] | | | | | | [phone] | | | | | | | | +--------+---------+ + + + documented as of this encounter Visit Diagnoses Not on filedocumented in this encounter"
--- OUTSIDE RECORDS SUMMARY | ~2020-01-09 | XMS | Encounter Summary ---
Demographics + + + | Address | [address] | | | [place] [address] | + + + | Home Phone [...] + + + | Author | [facility] | | | and [place] | + + + | Organization | [facility] | | | [...] [place] | | | | | [address] | | + + + + + | Santo Cervantes | ECON | Unknown | | + + + + + Care Team Providers + +------+ + | Care Pole Shaver Name | Role | Phone | + [...] Description | +--------+---------+ + + + | 03/06/ | Office | [facility] | Damian Escobedo | Status post right | | 2018 | Visit | ORTHOPEDIC SURGERY | [address] | knee replacement | | | | [address] [place] | [address] [place] | (Primary Dx) | | | | [place], [place] | [place] [address] | | | | | [address] | [phone] | | | | | [phone] | | | +--------+---------+ + + + [...] | 78.8 kg (173 lb 11.6 | 03/06/2018 2:09 PM | | | | oz) | PST | | + + + + + | Height | 171.5 cm (5' 7.5") | 03/06/2018 2:09 PM | | | | | PST | | + + + + + | Body Mass Index | 26.81 | 03/06/2018 2:09 PM | | | | | PST | | + + + + + documented in this encounter Progress Notes Damian Escobedo PA-C - 03/06/2018 2:45 PM PSTFormatting of this note might be differe nt from the original. Name:Raúl Day Today Date: 03/06/2018 Age: 67 y.o. PCP: Shubham Maurer MD Chief Complaint Patient presents with Post Op right total knee arthroplasty DOS 12/19/17 SUBJECTIVE: Postoperative visit for right total knee arthroplasty performed on 12/19/17. This pain over lying the minimal and well-controlled. He is not taking any prescribed zugd-fno-vzpdfhx johanna n medication. He is doing physical therapy in [place] and doing well. Current level pain is 0 OBJECTIVE: Incision site at the anterior aspect of the right knee has healed appropriately and well. No evidence of any complication or infection. Skin is warm and dry. Active range of motion is approximately 0 112 degrees. It did require passive range of motion to get him to ful l extension. Imaging/Studies: No studies to review at this time. Vitals: 03/06/18 1409 Weight: 78.8 kg (173 lb 11.6 oz) Height: 1.715 m (5' 7.5") ASSESSMENT/PLAN: 1.Right total knee arthroplasty, status post op A. Patient has done quite well with right total knee arthroplasty. Range of motion is con tinuing to incrementally improve and he is now resuming his normal activities. Recommended light activities for at least the next 6 months. Careful with the icy conditions. Follow-u p in my office will be when necessary B. Patient is advised that if they have any questions, comments or concerns to contact our office. Electronically signed by: Damian Escobedo PA-C 03/06/2018 14:25 This note was dictated using the [employer] voice recognition system. Minor errors in grammar [...] | | | | | | [place] [address] | | | | | | [phone] | | | | | | | | +--------+---------+ + + + documented as of this encounter Visit Diagnoses + + | Diagnosis | + + | Status post right knee replacement - Primary | + + documented in this encounter
--- OUTSIDE RECORDS SUMMARY | ~2020-01-09 | XMS | Encounter Summary ---
Demographics + + + | Address | [address] | | | [place] [address] | + + + | Home Phone [...] Author + + + | Author | [facility] | | | and [place] | + + + | Organization | [facility] | | | [...] [place] | | | | | [address] | | + + + + + | Santo Cervantes | ECON | Unknown | | + + + + + Care Team Providers + +------+ + | Care Moulder Operator Name | Role | Phone | [...] | | replacement | [address] | | | | | | [address] [place] | | | | | | | [place] | | | | | | | [address] | | | | | | | Phone: | | | | | | | [phone] | | | | | | | Fax: | | | | | | | [phone] | | +--------+ + + + + + Reason for Visit +--------+--------+ + | Reason | Onset | Comments | | | Date | | +--------+--------+ + | Other | 01/04/ | | | | 2018 | | +--------+--------+ + Encounter Details +--------+ + + + + | Date | Type | Department | Care Team | Description | +--------+ + + + + | 01/04/ | Telephone | [facility] [place] | Damian Escobedo | Other | | 2017 | | ORTHOPEDIC SURGERY | [address] | | | | | [address] [place] | [address] | | | | | [place] | [place] [address] | | | | | [address] | [phone] | | | | | [phone] | | | +--------+ + + + [...] this encounter Miscellaneous Notes Telephone Encounter - Emma Hong - 01/09/2018 9:38 AM PDTPatient is scheduled for Tuesday02/11/2018 for physical therapy. Please fax order to [phone] si gned by Emma Hong at 01/09/2018 9:38 AM PDTTelephone Encounter - Samira Guallpa - 01/04/2018 4:05 PM PDTPatient would like an order put in for physical therapy at [facility] in [place] documented in this encounter Plan of Treatment [...] | | | | | | [place] [address] | | | | | | [phone] | | | | | | | [...]
--- OUTSIDE RECORDS SUMMARY | ~2020-01-09 | XMS | Encounter Summary ---
Demographics + + + | Address | [address] | | | [place] [address] | + + + | Home Phone [...] + | Author | [facility] | | | and [place] | + + + | Organization | [facility] | | | and [...] [place] | | | | | [address] | | + + + + + | Santo Cervantes | ECON | Unknown | | + + + + + Care Team Providers + +------+ + | Care Wardrobe Stylist Name | Role | Phone | + +------+ + | Shubham Maurer MD | PCP | | + +------+ + Encounter Details +--------+ + + + + | Date | Type | Department | Care Team | Description | +--------+ + + + + | 06/15/ | Hospital | [facility] | Min Tello MD | Status post lumbar | | 2017 | Encounter | MED CTR XRAY [address] | [address] | spinal fusion | | | | [place] | [place] [address] | | | | | [place] [address] | [phone] | | | | | [phone] | | | +--------+ + + + [...] | + + + +---------+--------+ + | Carbonado-3 Fatty | Take 2 capsules by | [...] [place] | | | | | | [place] [id number] | | | | | | [phone] | | | | | | | [...] dated December 15, 2015. Radiographs | [facility] | | dated October 20, 2015. FINDINGS: Frontal and lateral views of the [facility] | | lumbar spine. Posterior and interbody [...] [address] | [place] | [phone] | | [facility] | | [address] | | | - IMAGING | | | | + + + + + documented in this encounter Visit Diagnoses + + | Diagnosis | + + | Status post lumbar spinal fusion Arthrodesis status | + + documented in this encounter"
--- OUTSIDE RECORDS SUMMARY | ~2020-01-09 | XMS | Encounter Summary ---
Demographics + + + | Address | [address] | | | [place] [address] | + + + | Home Phone [...] [place] | | | | | [address] | | + + + + + | Santo Cervantes | ECON | Unknown | | + + + + + Care Team Providers + +------+ + | Care Sales Support Rep Name | Role | Phone | + +------+ + | Shubham Maurer MD | PCP | | + +------+ + Reason for Visit + +--------+ + | Reason | Onset | Comments | | | Date | | + +--------+ + | Home Health | 04/08/ | Request | | | 2015 | | + [...] [address] | ) | | | | [address] | [place] [address] | | | | | [place] | [phone] | | | | | [address] | | | | | | [phone] | | | +--------+ + + + [...] this encounter Miscellaneous Notes Telephone Encounter - Janice Yanez - 04/08/2015 3:09 PM PSTPatient called back asking t o leave a message for Sarah. 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 It is [facility] [employer], [place] [id number], . elephone Encounter - Sarah Mclean - 04/08/2015 2 :30 PM Jessy has been looking over his preparing for surgery booklet. He is concerned a bout a portion of the book that states that he should not be alone for 24 hours after surger y. He is advised at this time that our Care Management team will evaluate his home care eden partida prior to discharge from the hospital. He verbalized understanding. documented in this encounter Plan of Treatment [...] | | | | | | [place] [address] | | | | | | [phone] | | | | | | | | +--------+---------+ + + + documented as of this encounter Visit Diagnoses Not on filedocumented in this encounter"
--- OUTSIDE RECORDS SUMMARY | ~2020-01-09 | XMS | Encounter Summary ---
Demographics + + + | Address | [address] | | | [place] [address] | + + + | Home Phone [...] + + + | Author | [facility] | | | and [place] | + + + | Organization | [facility] | | | [...] [place] | | | | | [address] | | + + + + + | Santo Cervantes | ECON | Unknown | | + + + + + Care Team Providers + +------+ + | Care Family Day Care Worker Name | Role | Phone | + +------+ + | Shubham Maurer MD | PCP | | + +------+ + Encounter Details +--------+ + + + + | Date | Type | Department | Care Team | Description | +--------+ + + + + | 11/07/ | Orders Only | [facility] [place] | Julius Nowak | Pain in both knees, | | 2018 | | ORTHOPEDIC SURGERY | MD Liliana [address] | unspecified | | | | [address] [place] | [place] | chronicity (Primary | | | | [place] | [address] | Dx) | | | | [address] | | | | | | [phone] | | | +--------+ + + + [...] | | | | | | [place] [address] | | | | | | [phone] | | | | | | | [...]
--- OUTSIDE RECORDS SUMMARY | ~2020-01-09 | XMS | Encounter Summary ---
Demographics + + + | Address | [address] | | | [place] [address] | + + + | Home Phone [...] [place] | | | | | [address] | | + + + + + | Santo Cervantes | ECON | Unknown | | + + + + + Care Team Providers + +------+ + | Care Delivery And Installation Subcontractor Name | Role | Phone | + [...] | MD [address] | [address] | | | | | acute Left | [address] | [place], | | | | | arm pain | [facility] [place] | | | | | Left arm | [place] [address] | [address] | | | | | numbness | Phone: | Phone: | | | | | Other | [phone] | [phone] | | | | | osteoarthrit | Fax: | Fax: | | | | | is of spine, | [phone] | [phone] | | | | | cervical | [...] | MD [address] | [address] | | | | | acute Left | [address] | [place], | | | | | arm pain | [facility] | [place] | | | | | Left arm | [place] [address] | [address] | | | | | numbness | Phone: | Phone: | | | | | Other | [phone] | [phone] | | | | | osteoarthrit | Fax: | Fax: | | | | | is of spine, | [phone] | [phone] | | | | | cervical | [...] + | 02/28/ | Hospital | [facility] | Min Tello MD | Neck pain, acute; | | 2015 | Encounter | MED CTR MRI [address] | [address] | Left arm pain; Left | | | | [address] [place], | [place] [address] | arm numbness; Other | | | | [place] [address] | [phone] | osteoarthritis of | | | | [phone] | | spine, cervical | | | [...] | + + + +---------+--------+ + | XOM-RPW-Iifsxot E | Take 2 capsules by | [...] | + + + +---------+--------+ + | [place]-3 Krill Oil | Take 2 capsules by [...] | | | | | | [place] [address] | | | | | | [phone] | | | | | | | [...] and left arm symptoms COMPARISON: None. | . [facility] | | TECHNIQUE: Multiplanar multisequence MR [...] ST. | [address] | [place], [place] | [phone] | | [facility] | | [address] | | | - IMAGING | | [...]
--- OUTSIDE RECORDS SUMMARY | ~2020-01-09 | XMS | Encounter Summary ---
Demographics + + + | Address | [address] | | | [place] [address] | + + + | Home Phone | | + + + | Preferred Language | Unknown | + + + | Marital Status | Single | + + + | Amish Affiliation | [phone] | + + + [...] Team Providers + +------+ + | Care Frit Maker Name | Role | Phone | [...] | | | | spine, | | [place], [place] | | | | | unspecified | | [address] | | | | | scoliosis | | Phone: | | | | | Scoliosis of | | [phone] | | | | | lumbar | | Fax: | | | | | spine, | | [phone] | | | | | unspecified | | | | | | | scoliosis | | | | | | | [M41.9] | | | | | | | Procedures | | | | | | | AL | | | | | | | [...] + + | 05/05/ | Hospital | [facility] | Min Tello MD | Gait abnormality | | 2016 - | Encounter | [facility] | [address] | (Primary Dx) | | | | [address] | [place] [address] | | | 05/08/ | | [place] [address] | [phone] | | | 2015 | | [phone] | | | +--------+ + + + [...] might be differen t from the original. [facility] NEUROSURGERY DISCHARGE SUMMARY Patient Name: Raúl [...] PO Take 2 capsules by mouth Daily. Wheaton-3 Krill Oil 500 MG Caps Take 1 [...] Units Take 1,000 Units by mouth Daily. LYO-YUY-Ulfarne E (OMEGA-3 COMPLEX PO) 2 capsules Take 2 capsules by mouth Daily. Wheaton-3 Krill Oil 500 MG CAPS 1 capsule [...] + + + +---------+ + + | GYA-PZF-Vtdqwbr E | Take 2 capsules by | [...] + + + +---------+ + + | Wheaton-3 Krill Oil | Take 2 capsules by [...] - 05/08/2015 10:42 AM PSTPt discharge to [facility]. Pt was wheeled out in a stable condition. Report given to Re at [facility]. Electro nically signed by Katie Delgado RN at 05/08/2015 10:44 AM PSTWest, Jaspreet Espino - 05/07/2015 7:42 AM PST [facility] PROGRESS NOTE Pt. Name/Age/: Raúl Day 65 y.o. 1950 Med. Record Number: [id number] Date of admission: 05/05/2015 Subjective: The patient [...] Electronically signed by: Jovan Alford, 05/07/2015 7:42 [facility] Derik Yu, Medical Student - 05/06/2015 [...] t he original. Min Tello MD [address], [address] [place] [address] FAX: NEUROSURGERY FOLLOW-UP CHIEF COMPLAINT: Chief Complaint [...] capsule Take 1,000 Units by mouth Daily. OVT-BYO-Vvkctra E (OMEGA-3 COMPLEX PO) Take 2 capsules by mouth Daily. diclofenac (VOLTAREN) 75 mg EC tablet Take 75 mg by mouth 2 times daily. FERROUS SULFATE PO Take by mouth Daily. Wheaton-3 Krill Oil 500 MG CAPS Take 1 [...] anemia, no fatigue, no recent profound weight alva ges. EYES: + eye problems, + use [...] has no apparent deficits with short or watermelon harvesting supervisor memory. MOTOR EXAM: (5 IS NORMAL) * Indicates pain limited MUSCLE/ MOVEMENT: RIGHT LEFT Deltoids 5 5 Biceps 5 5 Triceps 5 5 Wrist Flexion 5 5 Wrist Extension 5 5 Median Intrinsics 5 5 Ulnar Intrinsics 5 5 Partition Assembler Strength 5 5 Hip Flexion 5 5 [...] 1 PATELLAR 1 1 ACHILLES 1 1 CBARAL'S ABSENT ABSENT PLANTAR DOWNGOING DOWNGOING GAIT: Gait [...] breakfast with no n/v. Pt discharged to [facility]. lan of Vince - Patricia Dawn - 05/08/2015 7:51 AM PSTReferral faxed to [facility]. [place]: [phone] Electronically signed by: Patricia Dawn 05/08/2015 7:52 Received a call from Sola @ [facility]. She can accept this patient today. Faxed orders, PASRR and Discharge Summary over. Received the Communication Result Report. Result OK. SNF packet complete, T/M to [facility], asked for RX for medications. Paged [facility]. Electronically signed by: Patricia Dawn 05/08/2015 9:07 Spoke with Don this morning regarding discharging today. IMM given and explained. 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 Left a message for Chuck regarding the RX for Percocet. Staff notified of scrap picker time. Electronically signed by: Patricia Dawn 05/08/2015 9:50 [facility] Transfer - Eben Alford PA - 05/08/2015 7:17 AM PSTFormatting of this note might be different from the o riginal. HALFWAY FACILITY TRANSFER ORDERS Patient Name: Raúl Day Patient : 1950 Gender: male Date of Admission: 05/05/2015 Date of Discharge: 05/08/2015 Admitting Provider: Min Tello MD Discharging Provider: STEVE Mills Consultants: PT/OT PCP: Shubham Maurer SNF transferring to: [facility] Provider after transfer: CODE STATUS: [x] Attempt CPR [] Do not resuscitate If patient is pulseless and not breathing, RN/COMPETITIVE INTELLIGENCE MANAGER may pronounce . Advanced Directives included: [] [...] for this patient. Diet: [x] As tolerated BRUSH OR BROOM CUTTER may upgrade or downgrade diet as condition Indicates. [] RN may downgrade diet as indicated. Type: [] Continue current diet of: Diet and Supplements Diet DIET GENERAL Number of Occurrences: Until Specified [] Other: Consistency/Precautions: [] Whole [] Thin Liquids [] Cut-up [] [place] Thick [] Advanced Chopped [] Honey Thickened [] Chopped [] Advanced Ground [] 1:1 feedings [] Ground/Pureed [] Other: Tube Feedings: [] PEG [] GT [] JT [] NGT [] Formula type: (Set Painter may change/substitute if indicated). [] Continuous Rate: [...] & Management for: strength and mobility_ [] BRUSH OR BROOM CUTTER Evaluation &Management for: [] Other: Wound/Skin Care: [...] Needed/Frequency Diagnosis/Indication Follow up appointments and consultations: Yam/Chuck West Date/Time: 4 weeks . Date/Time I have advised this patient that [...] PO Take 2 capsules by mouth Daily. Wheaton-3 Krill Oil 500 MG Caps Take 1 capsule by mouth Daily. PLANT STEROLS AND STANOLS PO Take by mouth 2 times daily. Red Yeast Rice 600 MG Caps Take 1 capsule by mouth 2 times daily. Discontinued Medications dexamethasone 2 MG tablet aka: DECADRON diclofenac 75 mg EC tablet aka: VOLTAREN FERROUS SULFATE PO I, STEVE Mills, certify that post hospital nursing home care is medically necess felicia on a continuing basis for any of the conditions for which he/she received care during th is hospitalization. Check one: [x] Skilled [] Intermediate Additional Orders/Instructions: Physician's signature: Chuck alford PA-C 05/08/2015 7:17 [facility] NURSING FACILITY USE ONLY: [] Admitting orders [...] not had a bowel movement yet. [place] l continue to monitor. Dr Tello aware. lan of [facility] - Alma Rosa, Tanya BRIANNE Wills - 05/07/2015 2:35 PM PSTProblem: Patient Care [...] quickly. lan of Care - Keanu Cash, OPTOMETRIC TECHNICIAN - 05/06/2015 11:33 PM PSTProblem: Patient Care [...] clear, IS 1500 lan of Care - Lanie Sandoval, OT - 05/06/2015 3:24 PM PST Problem: [...] L4-5, L5-S1; Surgeon: Min Tello MD; Location: [facility] OR No Known Allergies Precautions/Limitations: spinal, falls, [...] am hoping to go to rehab. at [facility]" OT Visit Summary: OT able to assess [...] headed, so helped Pt. back to chair. DIGITAL CONTENT COORDINATOR arrived and made his bed. Pt. agreed to stay up in chair to wait for PT. Occupational Therapy will follow Raúl Day 3 times/wk until discharge from [facility] or discharged from the hospital. Occupational Therapy Anticipated Discharge Needs: Ongoing occupational therapy required. DC disposition TBD. Post discharge occupational therapy recommendation: home health, pt is motivated participa nt, ongoing low intensity therapy Equipment Recommendations: brace, shower chair, 2 wheeled walker (FWW) Identified Problems Needing Skilled Intervention: OT randee. and treat post-op back surgery , aerobic [...] Underwe ar Leg ADLs LB, Level of Webster: maximum assist (25% patient effort) Assistive Device: none LB Dressing Assess/Train, Position: sitting, standing LB Dressing Assess/Train, Impairments: strength decreased, pain Grooming, Level of Webster: contact guard assist Assistive Device: none Grooming [...] Transfer Training Goal, Activity Type: toilet, tub Webster Level: modified independence Assistive Device: 2 wheeled walker (FWW) Time to Achieve: by discharge Goal Status: new Grooming Goal, Webster Level: modified independence Adaptive Equipment: none Position: standing Time to Achieve: by discharge Goal Status: new Bathing Goal, Webster Level: contact guard assist Adaptive Equpiment: grab bars, shower head, detachable, sponge, long handled, shower c hair Time to Achieve: by discharge Goal Status: new LB Dressing Goal, Webster Level: contact guard assist Adaptive Equipment: flyer maker, dressing stick Time to Achieve: by discharge [...] plan for care. Today's Treatment Start Time: 944 Stop time: 1035 Time Calculation: 50 minutes [...] he is now planning to go to [facility]. Plan for next treatment: 1P. RG. OT to see for ADLs to include a shower once ADY drains pu lled. Electronically signed by: Lanie Kline OT, 05/06/2015 15:18 lan of Care - Be tts, Kameron Ceron, OPTOMETRIC TECHNICIAN - 05/06/2015 1:24 PM PSTProblem: Patient Care [...] L4-5, L5-S1; Surgeon: Min Tello MD; [facility]: [facility] OR No Known Allergies Precautions/Limitations: spinal, falls, [...] be from multiple contributors. Gait Level of Webster : modified independence, supervision required Assistive Device: 2 wheeled walker (FWW) Distance (feet): 125 Stairs NT Transfers Sit-Stand, Level of Webster: modified independence Stand-Sit, Level of Webster: modified independence Znu-Rhdos-Oad, Assistive Device: 2 wheeled walker (FWW) Safety Issues: step length decreased Impairments: coordination impaired, motor control impaired, strength decreased, pain Bed Mobility Assistive Device: bed rails Supine to Sit, Level of Webster: not tested Sit to Supine, Level of Webster: minimum assist (75% patient effort), verbal cues requ ired Safety Issues: decreased use of legs for bridging/pushing Impairments: pain, strength decreased, coordination impaired, motor control impaired STG GOALS Bed Mobility Goal, Activity Type: supine to sit/sit to supine Webster Level: independent Assistive Device: none Time to Achieve: 2 - 3 days Goal Status: new Transfer Training Goal, Activity Type: sit to stand/stand to sit Webster Level: modified independence Assistive Device: 2 wheeled walker (FWW) Time to Achieve: 2 - 3 days Goal Status: new Gait Training Goal, Webster Level: modified independence Assistive Device: 2 wheeled walker (FWW) Distance: 500 Time to Achieve: 2 - 3 days Goal Status: new Stairs Goal, Webster Level: modified independence Assistive Device: (1 rail) [...] Pain has been well controlled alternating with [place] and muscle relaxant. No falls, calling appropriately. He has voided once so far. Still c/o gas pain and bloating. Simethicone, Tums, warm blanket s and walking encouraged. P M PSTPlan Patricia Christianson - 05/06/2015 9:43 AM PSTDischarge Planning: Met [...] option form signed and placed in the ost chart Electronically signed by: Patricia Dawn 05/06/2015 9:[address] [facility] - Surendra Truong RN - 05/06/2015 7:16 AM [...] Note Raúl Day 65 y.o. male 1950 [id number] Proc. Date 05/05/2015 Preop Dx Scoliosis of [...] PEEK spacer was prepared filling it with [place]/BMP and then tamping it into the interspace [...] autograft obtained from t he drilling and Sim/cancellous chips with bone marrow aspirate were packed in the glass sander belt olateral aspect of the spine along the [...] size. The interspace was packed with cancellous chips/[place] a nd also with morselized local autograft. [...] signed by: Min Tello MD 05/05/2015 20:33 [facility] rief Op Note - Jaguar Tello MD - 05/05/2015 8:33 PM PSTFormatting of this note might be different from the origin al. Brief Operative Note Raúl Day 65 y.o. male 1950 [id number] Proc. Date 05/05/2015 Preop Dx Scoliosis of [...] technique with use of operating microscope Anesthesia General, Dr. Reeves Surgeon Min Tello MD - Primary STEVE Ricardo - Assisting EBL 424 Findings L3-S1 kyphosis and scoliosis. Severe facet disease. Good bone. B bracing Complications none Specimens * No specimens in log * Drains Drain/Device Site 05/05/151999 #1 Left lumbar spine (Active) Drain/Device Site 05/05/151999 #2 Right lumbar spine (Active) Electronically signed by: Min Tello MD 05/05/2015 20:33 [facility] signed by Min Tello MD at [...] visit due to patient still insurger y [id number]. Plan: Eval tomorrow. Electronically signed by: Min [...] | | | | | | [place] [address] | | | | | | [phone] | | | | | | | [...] placement of hardware for posterior fusion from [id number] S1 with spacer | | hardware at [...] +-------+------+------+ | bisacodyl (DULCOLAX) | Given | 05/07/19 | 10 mg [...] | | | | | TIMES DAILY MICHAELN, Ari, Starting | | PM PST | [...]
--- OUTSIDE RECORDS SUMMARY | ~2020-01-09 | XMS | Encounter Summary ---
Demographics + + + | Address | [address] | | | [place] [address] | + + + | Home Phone [...] Author | [facility] | | | and [place] | + + + | Organization | [facility] | | [...] [place] | | | | | [address] | | + + + + + | [place] | ECON | Unknown | | + + + + + Care Team Providers + +------+ + | Care Advertising Inserter Name | Role | Phone | + +------+ + | Shubham Maurer MD | PCP | | + +------+ + Reason for Visit + +--------+ + | Reason | Onset | Comments | | | Date | | + +--------+ + | Medication Refill | 09/21/ | | | | 2018 | | + +--------+ + Encounter Details +--------+--------+ + + + | Date | Type | Department | Care Team | Description | +--------+--------+ + + + | 09/21/ | Refill | [facility] [place] | Julius Nowak | Medication Refill | | 2018 | | ORTHOPEDIC SURGERY | MD Liliana [address] | | | | | [address] | [place] | | | | | [place] | [address] | | | | | [address] | | | | | | [phone] | | | +--------+--------+ + + + [...] this encounter Miscellaneous Notes Telephone Encounter - Elsa Delaney Skate Boarder - 09/21/2018 3:49 PM PDTMedication has been escribed. 3 :49 PM PDTTelephone Encounter - Mary Jo Robles - 09/21/2018 2:42 PM PDTPatient called toni vazquezesting refill. Medication:antibiotic (dentist appt) Out in: now Who will pickle cutter: please call into [facility] [place] Patient had a dental appt. Today and had to reschedule to Please call and advise. documented in this encou nter Plan of [...] | | | | | | [place] [address] | | | | | | [phone] | | | | | | | | +--------+---------+ + + + documented as of this encounter Visit Diagnoses Not on filedocumented in this encounter"
--- OUTSIDE RECORDS SUMMARY | ~2020-01-09 | XMS | Encounter Summary ---
Demographics + + + | Address | [address] | | | [place] [address] | + + + | Home Phone [...] Author | [facility] | | | and [place] | + + + | Organization | [facility] | [...] [place] | | | | | [address] | | + + + + + | [place] | ECON | Unknown | | + + + + + Care Team Providers + +------+ + | Care Stamps Or Coins Salesperson Name | Role | Phone | + +------+ + | Shubham Maurer MD | PCP | | + +------+ + Reason for Visit + + + | Reason | Comments | + + + | New Patient | NEW PATIENT | + + + Evaluate & Treat (Routine) +--------+--------+ + + + + | Status | Reason | Specialty | Diagnoses / | Referred By | Referred To | | | | | Procedures | Contact | Contact | +--------+--------+ + + + + | Closed | | Cardiology | Diagnoses | Saúl, | Jaida | | | | | Typical | DO Beny | MD Sea | | | | | atrial | [address] | [address] | | | | | flutter | [address] Pena | [address] | | | | | ([facility]) | [address] | [place] | | | | | Procedures | [place], | [address] Phone: | | | | | Consult | [place] | [phone] | | | | | | [address] | Fax: | | | | | | Phone: | [phone] | | | | | | [phone] | | | | | | | Fax: | | | | | | | [phone] | | +--------+--------+ + + + + Encounter Details +--------+---------+ + + + | Date | Type | Department | Care Team | Description | +--------+---------+ + + + | 09/25/ | Office | [facility] | Aditya Frost, | Atrial flutter, | | 2020 | Visit | CARDIOLOGY [place] | [address] | unspecified type | | | | [address] | [place] | (HCC) (Primary Dx); | | | | [place], [place] | [place] [address] | Stroke due to | | | | [address] | [phone] | stenosis of right | | | | [phone] | | carotid artery | | | | | | (HCC); Carotid | | | | | | stenosis, right | +--------+---------+ + + + Social History [...] + + + | Blood Pressure | 120/74 | 09/26/2019 2:45 PM | | | | | PDT | | + + + + + | Pulse | 70 | 09/26/2019 2:45 PM | | | | | PDT | | + + + + + | Temperature | 36.6 C (97.9 F) | 09/26/2019 2:45 PM | | | | | PDT | | + + + + + | Respiratory Rate | - | - | | + + + + + | Oxygen Saturation | 98% | 09/26/2019 2:45 PM | | | | | PDT | | + + + + + | Inhaled Oxygen | - | - | | | Concentration | | | | + + + + + | Weight | 82.6 kg (182 lb) | 09/26/2019 2:45 PM | | | | | PDT | | + + + + + | Height | 171.5 cm (5' 7.5") | 09/26/2019 2:45 PM | | | | | PDT | | + + + + + | Body Mass Index | 28.08 | 09/26/2019 2:45 PM | | | | | PDT | | + + + + + documented in this encounter Progress Notes Aditya Frost MD - 09/26/2019 2:30 PM PDTFormatting of this note might be different ly m the original. Subjective: Patient ID: Raúl Day is a 69 y.o. male. HPI Patient's medications, allergies, past medical, surgical, social and family histories were obtained and reviewed as appropriate. Mr. Desir came to the office today for a cardiology evaluation. [facility] was [facility] to [facility] in [place] 09/03/2019 for an acute right -sided CVA. He had noted tingling in his left forearm earlier in the day, and developed lef t hand weakness, dropping his cell phone and objects. He was noted to have new onset atrial flutter with a controlled ventricular rate, but because of the acute watershed stroke in th e borderline between the right anterior and middle cerebral arteries, with multiple small in acute acute infarcts noted on a brain MRI, oral anticoagulation was withheld initially. He was treated with Plavix, which he is still taking, although he is now also on Eliquis, whic h was started 09/09/19. The stroke could have been caused by this, or possibly from the 50-7 9% stenosis that was found in the proximal right internal carotid artery, treated with a car otid stent on 09/06/2019. Records were reviewed. He had transient postoperative hypotension that resolved. He was discharged on Plavix and atorvastatin. He was seen in the [facility] ER 09/16/2019 for shortness of breath, [...] I will see him back in the [place] office, after the 30-day monitor. ROS CONSTITUTIONAL: No recent significant weight change, denies recent fever, chills, night sw eats, c/o significant Fatigue since his CVA, but walks 1 mile 6 days per week NEUROLOGIC: Right MCA/CLAYTON watershed CVA 09/03/19, with left forearm tingling and left hand w eakness. No previous history of CVA,, TIA, denies migraines, seizures. He had a Syncopal e vent around 1979. No dizziness, but notes occasional Lightheadedness since starting Metopro lol. No residual weakness, numbness, tingling, paresthesias. -- MRI (09/04/19 - [facility]): Multiple small acute infarcts in the right CLAYTON/MCA border zone moderate atrophy, mild chronic microvascular ischemia -- CTA Head/Neck 09/04/19 - [facility]): Large, irregular plaque wi th possible thrombus in the proximal CHRISTOPHER, 50-79% stenosis EYES: No amaurosis, diplopia, recent visual changes, had cataract surgery, no h/o glaucoma ENT: He has bilateral Hearing Loss, occasional Tinnitus, denies epistaxis, dysphagia ENDOCRINE: No history of diabetes. No history of thyroid disorders (TSH - 4.02, free T4 - 1.16 on 09/04/19) or other endocrine problems. No excessive hunger, thirst. PULMONARY/SLEEP: He c/o Dyspnea, with or without exertion, which started 09/15/19, with a C ough since starting Metoprolol, denies orthopnea, paroxysmal nocturnal dyspnea. No history of asthma, emphysema. No history of pneumonia. Denies apnea, but is aware of loud Snoring an d Bruxism, no significant daytime somnolence. Sleep is refreshing. CARDIOVASCULAR: Denies chest pain, pressure or discomfort. No history of CAD. No history of heart failure. He had new onset Atrial Flutter with his CVA, [id number] VASc 3, on Eliquis. ? Palpitations with emotional stress predating his CVA. ? h/o a heart murmur, rheumatic fev er, ? MVP diagnosed c1979. No history of hypertension, hyperlipidemia. No edema, no zully dication symptoms. No h/o an AAA. He had a 50-79% CHRISTOPHER stenosis treated with a stent . -- Carotid Stent (09/06/19 - [facility]): CHRISTOPHER 10x40 Enroute stent -- Echo (09/04/19 - [facility]): EF 60%, RVE with normal, no signifi cant valvular abnormalities -- Carotid U/S (09/04/19 - [facility]): 50-79% CHRISTOPHER, 1-15% LICA -- Lipid Panel (09/04/19 - no meds): TC-171, LDL-115, HDL-36, TG-101 GASTROINTESTINAL: No recent abdominal pain, nausea, vomiting or diarrhea. Denies PUD, shahida na, hematochezia, hepatitis. RENAL/: No history of kidney disease. No dysuria, hematuria, urinary urgency, hesitancy . HEMATOLOGY/ONCOLOGY: No h/o bleeding disorders, DVT, PE. Denies easy bruisability or ble eding. No history of anemia, transfusions. No history of cancer. MUSCULOSKELETAL: No myalgias, has degenerative lumbar disc disease and Osteoarthritis with hand, right first toe Arthralgias, ? Gout (blood testing was indeterminate). No history of rheumatologic or autoimmune diseases. CUTANEOUS: No rashes, pruritus, lesions. PSYCHIATRIC: No history of depression, admits to mild Anxiety, no other psychiatric proble ms. Past Medical History: Diagnosis Date Arthritis Atrial flutter, unspecified type (HCC) 09/03/2019 Carotid stenosis, right 09/04/2019 50-79% proximal CHRISTOPHER stenosis > 10x40 Enroute Carotid Stent placed 09/06/2019 at [facility] Cataract Degenerative disc disease, lumbar Hard of hearing bilateral hearing aids Stroke due to stenosis of right carotid artery (HCC) 09/03/2019 watershed stroke of right MCA territory, with multiple acute small infarcts in the borderl ine between the CLAYTON and MCA Past Surgical History: Procedure Laterality Date Carotid Stent Right 09/06/2019 10x40 mm Enroute stent placed in the CHRISTOPHER CATARACT REMOVAL Bilateral 2018 in [place] CORONARY ANGIOPLASTY HERNIA REPAIR Right 1979 [address] LUMBAR SPINE SURGERY Bilateral 05/05/2015 Procedure: L3-4, L4-5 Lateral Anterior Interbody Fusion, L5-S1 Transforaminal Lumbar Inter body Fusion, Laminectomy @ L3-4, L4-5, L5-S1; Surgeon: Min eTllo MD; Location: [facility] MAIN OR TOE SURGERY Right TOTAL KNEE ARTHROPLASTY Right 12/19/2017 Procedure: RIGHT ARTHROPLASTY KNEE; Surgeon: Julius Nowak MD; Location: [facility] MAIN OR VASECTOMY 1982 Family History Problem Relation Age of Onset Prostate cancer Father Stroke Mother TIAs, CVA Other (see comment) Mother carotid stenosis Dementia Mother Cancer Paternal Grandfather Diabetes, NIDDM Brother Nephrolithiasis Brother Atrial fibrillation Brother Social History Socioeconomic History Marital status: Single Spouse name: Not on file Number of children: 1 Years of education: 14 Highest education level: Not on file Occupational History 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 [employer] Comment: retired [employer] Social Needs Financial resource strain: Not on file Food insecurity Worry: Not on file Inability: Not on file Transportation needs Medical: Not on file Non-medical: Not on file Tobacco Use Smoking status: Never Smoker Smokeless tobacco: Never Used Substance and Sexual Activity Alcohol use: Not Currently Alcohol/week: 0.0 standard drinks Drug use: No Sexual activity: Never Lifestyle Physical activity Days per week: Not on file Minutes per session: Not on file Stress: Not on file Relationships Social connections Talks on phone: Not on file Gets together: Not on file Attends mormon service: Not on file Active member of club or organization: Not on file Attends meetings of clubs or organizations: Not on file Relationship status: Not on file Intimate partner violence Fear of current or ex partner: Not on file Emotionally abused: Not on file Physically abused: Not on file Forced sexual activity: Not on file Other Topics Concern Not on file Social History Narrative Not on file Allergies No active allergies Intolerance No active intolerances/contraindications Current Outpatient Medications Medication Sig Dispense Refill apixaban (ELIQUIS) 5 mg tablet Take 5 mg by mouth 2 times daily. artificial tears (REFRESH TEARS) ophthalmic solution Place 1 drop into both eyes every hour as needed for Dry Eyes. atorvaSTATin (LIPITOR) 80 MG tablet Take 80 mg by mouth nightly. cefadroxil (DURICEF) 500 mg capsule TAKE ONE TABLET THE MORNING OF DENTAL PROCEDURE AND ONE 12 HOURS LATER 2 capsule 0 clopidogrel (PLAVIX) 75 mg tablet Take 75 mg by mouth Daily. metoprolol succinate (TOPROL-XL) 25 mg 24 hr tablet Take 25 mg by mouth Daily. No current facility-administered medications for this visit. Objective: BP 120/74 | Pulse 70 | Temp 36.6 C (97.9 F) (Temporal) | Ht 1.715 m (5' 7.5") | Wt 82.6 kg (182 lb) | SpO2 98% | BMI 28.08 kg/m PHYSICAL EXAM GENERAL: Well developed, well nourished, in no distress. Appears approximately stated age . HEENT: Normocephalic, atraumatic. He has bilateral hearing aids. EYES: PERRL, sclerae anicteric, no xanthelsasmas MOUTH: Oral mucosae moist, dentition adequate, no lesions noted NECK: No JVD, lymphadenopathy, thyromegaly, bruits. Carotid pulses are 2+ bilaterally LUNGS: Clear bilaterally, with no rales, rhonchi or wheezing noted, respirations unlabored HEART: Nondisplaced PMI, regular rate, irregularly irregular rhythm, S1 is mildly varied i n intensity, S2 normal. No murmurs, rubs or gallops noted. ABDOMEN: Soft, nontender, no organomegaly, masses or bruits. Bowel sounds are normal in a ll 4 quadrants. The abdominal aortic pulsation is not palpable. EXTREMITIES: No edema. Radial pulses 2+ bilaterally. Femoral pulses are 2+ bilaterally wi thout bruits. DP and PT pulses are 2+ bilaterally. SKIN: Warm and dry, capillary refill is normal, no lesions. NEUROLOGIC: Awake, alert and oriented x 3. No focal motor deficits. PSYCHIATRIC: Appropriate, affect appears flat EKG (personally reviewed today): Atrial flutter, 3: 1 AV conduction, possible old inferior RI, no previous tracings available for comparison Assessment: Raúl was seen today for new patient. Diagnoses and all orders for this visit: Atrial flutter, unspecified type (HCC) - ECG 12 lead Stroke due to stenosis of right carotid artery (HCC) Carotid stenosis, right Plan: follow up after the cardioversion and 30-day event monitor. documented in this encounter Plan of Treatment +--------+---------+ + + + | Date | Type | Specialty | Care Team | Description | +--------+---------+ + + + | 01/24/ | Office | Cardiology | Aditya Frost, | | | 2019 | Visit | | MD [address] | | | | | | [place], | | | | | | [place] [address] | | | | | | [phone] | | | | | | | | +--------+---------+ + + + + +------+--------+ + + | Name | Type | Priori | Associated Diagnoses | Order Schedule | | | | ty | | | + +------+--------+ + + | Basic Metabolic | Lab | Routin | Atrial flutter, | 1 Occurrences | | Panel | | e | unspecified type | starting 09/26/2019 | | | | | (HCC) | until 09/25/2020 | + +------+--------+ + + | Holter monitor - 30 | ECG | Routin | Atrial flutter, | Expected: | | days | | e | unspecified type | 10/16/2019, Expires: | | | | | (HCC) | 09/25/2020 | + +------+--------+ + + documented as of this encounter Procedures + +--------+ + + + | Procedure Name | Priori | Date/Time | Associated Diagnosis | Comments | | | ty | | | | + +--------+ + + + | ECG 12 LEAD | Routin | 09/26/2019 | Atrial flutter, | Results for this | | | e | 2:51 PM | unspecified type | procedure are in the | | | | PDT | ([facility]) | results section. | + +--------+ + + + documented in this encounter Results ECG 12 lead (09/26/2019 2:51 PM PDT) + + + + + + | Component | Value | Ref Range | Performed | Pathologist | | | | | At | Signature | + + + + + + | VENTRICULAR | 84 | BPM | [facility] | | | RATE EKG | | | | | + + + + + + | ATRIAL RATE | 252 | BPM | [facility] | | + + + + + + | QRS | 86 | ms | [facility] | | | DURATION | | | | | + + + + + + | Q-T | 340 | ms | [facility] | | | INTERVAL | | | | | + + + + + + | Q-T | 401 | ms | [facility] | | | INTERVAL | | | | | | (CORRECTED) | | | | | + + + + + + | P WAVE AXIS | 80 | degrees | [facility] | | + + + + + + | QRS AXIS | -20 | degrees | [facility] | | + + + + + + | T AXIS | -52 | degrees | [facility] | | + + + + + + | INTERPRETAT | Atrial flutter with 3:1 | | [facility] | | | ION TEXT | A-V conductionPossible | | | | | | Inferior infarct , age | | | | | | undeterminedAbnormal | | | | | | ECGNo previous ECGs | | | | | | availableConfirmed by | | | | | | ADITYA FROST MD ([id number]) | | | | | | on 09/26/2019 4:36:57 PM | | | | + + [...] type (HCC) - Primary | + + | Stroke due to stenosis of right carotid artery (HCC) | + + | Carotid stenosis, right Occlusion and stenosis of carotid artery without mention of | | cerebral infarction | + + documented in this encounter
--- OUTSIDE RECORDS SUMMARY | ~2020-01-09 | XMS | Encounter Summary ---
Demographics + + + | Address | [address] | | | [place] [address] | + + + | Home Phone [...] [place] | | | | | [address] | | + + + + + | [place] | ECON | Unknown | | + + + + + Care Team Providers + +------+ + | Care Refinery Operator [facility] Name | Role | Phone | + [...] | | | | | | | OK TOTAL | | | | | | [...] Description | +--------+---------+ + + + | 12/19/ | Surgery | [facility] | Juluis Nowak | RIGHT ARTHROPLASTY | | 2018 | | [facility] | MD Nikole Ford | KNEE | | | | [address] | [place] | | | | | [place] | [id number] | | | | | [address] | | | | | | [phone] | | | +--------+---------+ + + + [...] + + + | Blood Pressure | 129/75 | 12/19/2017 2:27 PM | | | | | PDT | | + + + + + | Pulse | 62 | 12/19/2017 2:27 PM | | | | | PDT | | + + + + + | Temperature | 36.3 C (97.3 F) | 12/19/2017 1:57 PM | | | | | PDT | | + + + + + | Respiratory Rate | 19 | 12/19/2017 2:27 PM | | | | | PDT | | + + + + + | Oxygen Saturation | 100% | 12/19/2017 2:27 PM | | | | | PDT [...] Physician Discharge Summary Patient ID: Raúl Day [id number] y.o. 1950 Admit date: 12/19/2017 Discharge [...] be ready for transfer to [facility] [place] on 12/22/17. Consults: none Significant Diagnostic Studies: radiology: X-Ray: Right total knee arthroplasty. Treatments: therapies: PT Discharge Exam: Intact, recent right total knee arthroplasty. Disposition: [facility] Patient Instructions: Discharge Medications New Medications Details [...] mg of acetaminophen (Tylenol) per day. Hydrocodone-acetaminophen ([place] ) and Oxycodone-acetaminophen (Percocet) have 325 mg [...] mg by | | 0 | | 10//201 | | (TYLENOL) 500 mg | mouth every 6 hours | | | | 8 | | tablet | as needed for Pain. | | | | | + + + +---------+ + + | aspirin 325 MG EC | Take 1 tablet by | 30 | 0 | 09/28/20 | | | tablet | mouth Daily. [...] no signi ficant hemarthrosis. Plan: Transfer to [facility] for rehab/ PT RTC 01/03 for staple [...] signed by: Julius Nowak MD, 12/19/2017 11:50 [facility] Julius Wang MD - 12/15/2017 3:00 PM [...] Laterality Date CATARACT REMOVAL Bilateral 2017 in [place] HERNIA REPAIR Right [address] LUMBAR SPINE SURGERY Bilateral 05/05/2015 Procedure: L3-4, L4-5 Lateral Anterior Interbody Fusion, L5-S1 Transforaminal Lumbar Inter body Fusion, Laminectomy @ L3-4, L4-5, L5-S1; Surgeon: Jan Tello MD; Location: [facility] MAIN OR TOE SURGERY Right VASECTOMY [...] removed intact. Escorted out with staff from [facility] in wheelchair. Discharged to [facility] for continued Rehab. NF Transfer - Hammad Escobedo PA-C - 12/22/2017 1:24 PM PDTFormatting of this note might be different from t isabel original. [facility] FACILITY TRANSFER ORDERS Patient Name: Raúl Day Patient : [id number] Gender: male Date of Admission: 12/19/2017 Date of Discharge: 12/22/2017 Admitting Provider: Julius Nowak* Discharging Provider: Damian Escobedo PA-C Consultants: PT, OT, Respiratory PCP: Shubham Maurer [facility] transferring to: [facility] Provider after transfer: To Be determined CODE STATUS: [x] Attempt CPR [] Do not resuscitate If patient is pulseless and not breathing, RN/PAPER MACHINE BACKTENDER may pronounce . Advanced Directives included: [x] [...] for this patient. Diet: [] As tolerated RN PALLIATIVE may upgrade or downgrade diet as condition Indicates. [x] RN may downgrade diet as indicated. Type: [x] Continue current diet of: Diet and Supplements Diet Diet general; Effective Now Number of Occurrences: Until Specified Order Questions: Type Diet general [] Other: Consistency/Precautions: [] Whole [] Thin Liquids [] Cut-up [] [employer] Thick [] Advanced Chopped [] Honey Thickened [] Chopped [] Advanced Ground [] 1:1 feedings [] Ground/Pureed [] Other: Tube Feedings: [] PEG [] GT [] JT [] NGT [] Formula type: (Marketing Forecaster may change/substitute if indicated). [] Continuous Rate: [...] Management for: ___Right total knee arthroplasty [] RN PALLIATIVE Evaluation &Management for: [] Other: Wound/Skin Care: [...] Damian Escobedo PA-C, certify that post hospital penitentiary care is medically nece ssary on a continuing basis for any of the conditions for which he/she received care during this hospitalization. Check one: [x] Skilled [] Intermediate Additional Orders/Instructions: Physician's signature: Damian Escobedo PA-C 12/22/2017 13: 24 [facility] NURSING FACILITY USE ONLY: [] Admitting orders verbally reviewed with Admitting Physician, modified where appropriate, and approved. Verbal Order from Date: Time: _ RN name: RN signature: [] Admitting orders reviewed, modified where appropriate, and approved. Physician's signature: Date: Time: lan of [facility] - Kaila Oviedo MSW - 12/22/2017 12:10 [...] I. no assist. UB Dressing, Level of [place]: modified independent Assistive Device: none UB Dressing Assess/Train, Position: sitting increased time and effort but no physcial assist required. LB Dressing, Level of [place]: modified independent Assistive Device: none LB Dressing Assess/Train, Position: sitting, standing LB Dressing Assess/Train, Impairments: impaired balance, decreased flexibility mod I at sink. Grooming, Level of [place]: stand by assist Assistive Device: none Grooming [...] felicia/effort Assistive Device: none Scoot/Bridge, Level of [place]: modified independent Supine to Sit, Level of [place]: modified independent Sit to Supine, Level of [place]: modified independent Safety Issues: decreased use of legs for bridging/pushing Impairments: decreased flexibility, pain, strength decreased, ROM decreased Transfers increased time/effort; no physcial assist. talked with pt pertaining to tub/shower t/f. pt reports feeling comfortable with t/f and has no further questions or concerns. Bed-Chair, Level of [place]: modified independent Chair-Bed, Level of [place]: modified independent Qsp-Wtcjw-Cnr, Assistive Device: 2 wheeled walker (FWW) Sit-Stand, Level of [place]: modified independent Stand-Sit, Level of [place]: modified independent Xho-Zlomz-Lhq, Assistive Device: 2 wheeled walker (FWW) Toilet, Level of [place]: set up required, verbal cues required, stand [...] STG Status met at 12/22/2017 1102 STG [place] Level modified independent at 12/20/2017 1012 STG Adaptive Equipment none at 12/20/2017 1012 Tub/Shower Transfer Goal Most Recent Value Tub/Shower Type tub at 12/20/2017 1012 STG Status discontinued [pt reports feeling comfortable with task, reporting needing no f urther training] at 12/22/2017 1102 STG [place] Level modified independent at 12/20/2017 1012 Electronically signed by: Kenna Christian OT, 12/22/2017 12:09 lan [place] - Patricia Phipps - 12/22/2017 9:00 AM PDTThis CM received a call from Dr. Nowak regarding the disposition. This CM talked with Kvng about his discharge plan. Kvng is ok with going to [facility]. He has been there in the past. Faxed referral to [facility] and messaged Michelle. Michelle will go over the referral and let this CM know. Electronically signed by: Patricia Dawn 12/22/2017 9:02 lan of [facility] - Jenaro Sanchez RN - 12/22/2017 5:29 [...] Mod I in room during day hours. Sanam e board updated to reflect pt's mobility status. Consulted CM regarding assisting pt w/ sche duling OP PT at [facility] prior to d/c in order to get him in to see a therapist at [facility] est possible time. No further acute PT [...] off to normalize gait pattern Level of [place]: modified independent Assistive Device: 2 wheeled walker (FWW) Distance (feet): 150' Gait Deviations: conner decreased, step length decreased, weight-shifting ability decrease d Safety Issues: step length decreased, weight-shifting ability decreased Impairments: decreased flexibility, ROM decreased, strength decreased, pain Transfers Increased time and effort but no additional assist Bed-Chair, Level of [place]: modified independent Chair-Bed, Level of [place]: modified independent Nld-Csgtw-Jum, Assistive Device: 2 wheeled walker (FWW) Sit-Stand, Level of [place]: modified independent Stand-Sit, Level of [place]: modified independent Tid-Pbmrq-Ybv, Assistive Device: 2 wheeled walker (FWW) Safety Issues: weight-shifting ability decreased Impairments: decreased flexibility, ROM decreased, strength decreased, pain Bed Mobility increased time and effort Assistive Device: none Scoot/Bridge, Level of [place]: modified independent Supine to Sit, Level of [place]: modified independent Sit to Supine, Level of [place]: modified independent Safety Issues: decreased use of [...] STG Review Date 12/22/17 at 12/19/2017 1720 Kigfrb-Ajt-Vsjcjo Goal Most Recent Value STG Status met at 12/20/2017 1357 STG [place] Level modified independent at 12/19/2017 1720 STG Assistive Device none at 12/19/2017 1720 Kdq-Jmhdp-Ktw Goal Most Recent Value STG Status met at 12/21/2017 1030 STG [place] Level modified independent at 12/19/2017 1720 STG Assistive Device 2 wheeled walker (FWW) at 12/19/2017 1720 Gait Goal Most Recent Value STG Status met at 12/21/2017 1030 STG [place] Level modified independent at 12/19/2017 1720 STG Assistive Device 2 wheeled walker (FWW) at 12/19/2017 1720 STG Distance (feet) 150 feet at 12/19/2017 1720 Stair Goal Most Recent Value STG Status progressing at 12/21/2017 1030 STG [place] Level modified independent at 12/19/2017 1720 STG Assistive Device 2 rails at 12/19/2017 1720 STG Number of Stairs 2 at 12/19/2017 1720 Additional Goal #1 PT Most Recent Value STG Status met at 12/21/2017 1555 STG Patient will demonstrate good understanding of TKA exercises and receive a printed johns dout at 12/19/2017 1720 Electronically signed by: Kristi Sharma, PT, 12/21/2017 16:07 lan of Care - Lakeshia Alan, BIRD TRAPPER - 12/21/2017 3:21 PM PDT Problem: Patient [...] off to normalize gait pattern Level of [place]: modified independent Assistive Device: 2 wheeled walker (FWW) Distance (feet): 150' Gait Deviations: conner decreased, step length decreased, weight-shifting ability decrease d Safety Issues: step length decreased, weight-shifting ability decreased Impairments: decreased flexibility, ROM decreased, strength decreased, pain Stairs cueing, extra time and effort Number of Stairs: 4 Handrail Location: both sides Level of [place]: supervised, verbal cues required Assistive Device: 2 rails Technique Used: step to step (ascending), step to step (descending) Safety Issues: sequencing ability decreased, weight-shifting ability decreased Impairments: decreased flexibility, ROM decreased, pain, strength decreased Transfers Mod I with FWW Bed-Chair, Level of [place]: modified independent Chair-Bed, Level of [place]: modified independent Fde-Hzyuj-Bjj, Assistive Device: 2 wheeled walker (FWW) Sit-Stand, Level of [place]: modified independent Stand-Sit, Level of [place]: modified independent Rvz-Uyrdc-Fhu, Assistive Device: 2 wheeled walker (FWW) Maintain Weight Bearing Status: able to maintain weight bearing status Safety Issues: weight-shifting ability decreased, step length decreased Impairments: decreased flexibility, ROM decreased, strength decreased, pain Bed Mobility Mod I Assistive Device: bed rails Scoot/Bridge, Level of [place]: modified independent Supine to Sit, Level of [place]: modified independent Sit to Supine, Level of [place]: modified independent Safety Issues: decreased use of [...] STG Review Date 12/22/17 at 12/19/2017 1720 Ebruos-Ibm-Ptelyu Goal Most Recent Value STG Status met at 12/20/2017 1357 STG [place] Level modified independent at 12/19/2017 1720 STG Assistive Device none at 12/19/2017 1720 Kle-Qmybz-Bez Goal Most Recent Value STG Status met at 12/21/2017 1030 STG [place] Level modified independent at 12/19/2017 1720 STG Assistive Device 2 wheeled walker (FWW) at 12/19/2017 1720 Gait Goal Most Recent Value STG Status met at 12/21/2017 1030 STG [place] Level modified independent at 12/19/2017 1720 STG Assistive Device 2 wheeled walker (FWW) at 12/19/2017 1720 STG Distance (feet) 150 feet at 12/19/2017 1720 Stair Goal Most Recent Value STG Status progressing at 12/21/2017 1030 STG [place] Level modified independent at 12/19/2017 1720 STG [...] bed rails Supine to Sit, Level of [place]: modified independent Sit to Supine, Level of [place]: not tested Safety Issues: decreased use of legs for bridging/pushing Impairments: decreased flexibility, pain, strength decreased, ROM decreased Transfers Increased time, but pt. able to safely manage FWW and complete transfers. Pt. has tub bench at home. Demonstrated safe transfer with tub bench after demonstration. Sit-Stand, Level of [place]: modified independent Stand-Sit, Level of [place]: modified independent Sgu-Jvyma-Imk, Assistive Device: 2 wheeled walker (FWW) Tub, Level of [place]: stand by assist, verbal cues required Tub, Assistive Device: 2 wheeled walker (FWW), tub bench Safety Issues: weight-shifting ability decreased Impairments: decreased flexibility, ROM decreased, strength decreased, pain OT Goal Review Date Most Recent Value STG Review Date 12/27/17 at 12/20/2017 1012 LB Dressing Goal Most Recent Value STG Status new at 12/20/2017 1012 STG [place] Level modified independent at 12/20/2017 1012 STG Adaptive Equipment none at 12/20/2017 1012 Tub/Shower Transfer Goal Most Recent Value Tub/Shower Type tub at 12/20/2017 1012 STG Status progressing at 12/21/2017 1518 STG [place] Level modified independent at 12/20/2017 1012 Electronically [...] in both knees, unspecified chronicity (M25.561, M25.562). Grove Worker visit was in response to a nurse's spiritual care consult request. Spiritual Evaluation: The patient was resting in a bed with his Bible and a Bible study guide open on his lap. H e welcomed the presence of a manager visual. 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 He seems to be well-supported by friends/fam milton who were calling. He has a strong heidi in God and he welcomed prayer. Spiritual Interventions: The manager visual attended, offered care, witnessed patient's story, explored meaning and offere d prayer. Spiritual Outcomes: The patient expressed relief for the pain control he was experiencing. He has a strong kimberly th and seemed to be content and hopeful. Spiritual Goals/Follow-up: Follow up as needed or requested. lan of Care - Radha Lechuga RN - 12/21/2017 4:11 [...] Last BM 12/20/17. Passing flatus. lan of [facility] [place] dina, Enedelia Cueva, BILL HIKER - 12/20/2017 6:02 PM PDTProblem: Discharge Planning [...] he has a good support system in [place] and that he should get along with out any problems. PCP: Dr. Maurer Preferred pharmacy: [facility] When asked who his ride would be when discharged, he states that a lady named Ronel ([phone], he thinks) told him who would be picking him up. This CM has been unable to locate who t his ride might be. CM should follow up with patient or try calling Ronel to determine if the re is a ride pending. DISPO: Home when ready for discharge. Plans to go to the [facility] in [place] for rehab. lan of Care - Jitendra Gabriel RN - 12/20/2017 5:30 PM PDTProblem: Patient [...] needs known. lan of Care - Derik Alfredo PTA - 12/20/2017 1:57 PM PDTFormatting of this [...] y with turn navigation, reduced Level of [place]: supervised, verbal cues required Assistive Device: 2 wheeled walker (FWW) Distance (feet): 145' Impairments: impaired balance, decreased flexibility, motor control impaired Stairs extra time/effort d/t RLE weakness/pain, vc for sequencing and hand palcement, good- return demo post visual demo and vc this session Number of Stairs: 4 Handrail Location: both sides Level of [place]: supervised, verbal cues required Assistive Device: 2 rails Technique Used: step to step (ascending), step to step (descending) Safety Issues: sequencing ability decreased, weight-shifting ability decreased Impairments: pain, strength decreased, decreased flexibility, ROM decreased Transfers pt display good- return demo for sequencing and safety this session, no physical assist thi s session, vc for LE positioning, pacing this [facility] Bed-Chair, Level of [place]: supervised, verbal cues required Chair-Bed, Level of [place]: supervised, verbal cues required Fcc-Gzxzo-Fej, Assistive Device: 2 wheeled walker (FWW) Sit-Stand, Level of [place]: verbal cues required, supervised Stand-Sit, Level of [place]: verbal cues required, supervised Oil-Bexyt-Afh, Assistive Device: 2 wheeled walker (FWW) Maintain [...] Assistive Device: bed rails Scoot/Bridge, Level of [place]: modified independent Supine to Sit, Level of [place]: modified independent Sit to Supine, Level of [place]: modified independent Safety Issues: decreased use of [...] STG Review Date 12/22/17 at 12/19/2017 1720 Lctgox-Kgh-Wzlasg Goal Most Recent Value STG Status met at 12/20/2017 1357 STG [place] Level modified independent at 12/19/2017 1720 STG Assistive Device none at 12/19/2017 1720 Oty-Gtufn-Lzm Goal Most Recent Value STG Status progressing at 12/20/2017 1357 STG [place] Level modified independent at 12/19/2017 1720 STG Assistive Device 2 wheeled walker (FWW) at 12/19/2017 1720 Gait Goal Most Recent Value STG Status progressing at 12/20/2017 1357 STG [place] Level modified independent at 12/19/2017 1720 STG Assistive Device 2 wheeled walker (FWW) at 12/19/2017 1720 STG Distance (feet) 150 feet at 12/19/2017 1720 Stair Goal Most Recent Value STG Status progressing at 12/20/2017 1357 STG [place] Level modified independent at 12/19/2017 1720 STG [...] 12/20/2017 16:58 lan of Care - Racquel Alexander, OT - 12/20/2017 10:12 AM PDT Problem: [...] to reach feet. LB Dressing, Level of [place]: stand by assist, verbal cues required, set up required Assistive Device: none LB Dressing Assess/Train, Position: sitting LB Dressing Assess/Train, Impairments: impaired balance, decreased flexibility Pt. stood to brush teeth at sink. Grooming, Level of [place]: stand by assist Assistive Device: none Grooming Assess/Train, Position: standing Grooming Assess/Train, Impairments: impaired balance, pain Bed Mobility No assistance needed. Additional time and effort Assistive Device: bed rails, HOB elevated Supine to Sit, Level of [place]: supervised Sit to Supine, Level of [place]: supervised Safety Issues: decreased use of legs for bridging/pushing Impairments: decreased flexibility, motor control impaired Transfers Pt. walked to bathroom and transferred to toilet with commode frame. Brushed teeth while st anding at sink. Sit-Stand, Level of [place]: stand by assist, verbal cues required Stand-Sit, Level of [place]: stand by assist, verbal cues required Llf-Blgbm-Ibk, Assistive Device: 2 wheeled walker (FWW) Toilet, Level of [place]: set up required, verbal cues required, stand [...] STG Status new at 12/20/2017 1012 STG [place] Level modified independent at 12/20/2017 1012 STG Adaptive Equipment none at 12/20/2017 1012 Tub/Shower Transfer Goal Most Recent Value Tub/Shower Type tub at 12/20/2017 1012 STG Status new at 12/20/2017 1012 STG [place] Level modified independent at 12/20/2017 1012 Electronically signed by: Racquel Mcrae OT, 12/20/2017 11:51 lan of Care - Zandra la Kristi Ken, PT - 12/20/2017 8:58 AM PDT Problem: [...] of smooth swing thru pattern Level of [place]: supervised, verbal cues required Assistive Device: 2 wheeled walker (FWW) Distance (feet): 100 Impairments: impaired balance, decreased flexibility, motor control impaired Stairs Stairs not assessed at this time however pt does have a step to access home therefore stair training is indicated Transfers cuing for sequencing and hand placement, no additional assist needed Sit-Stand, Level of [place]: stand by assist, verbal cues required Stand-Sit, Level of [place]: stand by assist, verbal cues required Bfm-Unpmo-Gre, Assistive Device: 2 wheeled walker (FWW) Maintain Weight Bearing Status: assist to maintain weight bearing status, cues to maintain weight bearing status Safety Issues: balance decreased during turns, weight-shifting ability decreased Impairments: decreased flexibility, motor control impaired, impaired balance Bed Mobility good technique, no assist needed, additional time and effort Assistive Device: bed rails, HOB elevated Scoot/Bridge, Level of [place]: supervised, verbal cues required Supine to Sit, Level of [place]: supervised, verbal cues required Sit to Supine, Level of [place]: supervised, verbal cues required Safety Issues: decreased [...] STG Review Date 12/22/17 at 12/19/2017 1720 Yapmgc-Zgu-Kzlzxm Goal Most Recent Value STG Status progressing at 12/20/2017 0902 STG [place] Level modified independent at 12/19/2017 1720 STG Assistive Device none at 12/19/2017 1720 Vuo-Jegid-Qqb Goal Most Recent Value STG Status progressing at 12/20/2017 0902 STG [place] Level modified independent at 12/19/2017 1720 STG Assistive Device 2 wheeled walker (FWW) at 12/19/2017 1720 Gait Goal Most Recent Value STG Status progressing at 12/20/2017 0902 STG [place] Level modified independent at 12/19/2017 1720 STG Assistive Device 2 wheeled walker (FWW) at 12/19/2017 1720 STG Distance (feet) 150 feet at 12/19/2017 1720 Stair Goal Most Recent Value STG Status new at 12/19/2017 1720 STG [place] Level modified independent at 12/19/2017 1720 STG [...] N/V. Tolerati ng general diet. lan of Vince - Jessica Simmons RN - 12/19/2017 6:50 PM PDTProblem: Patient [...] be from multiple contributors. Gait Level of [place]: not appropriate to assess Transfers Moderate physical assistance at left knee for buckling due to residual effects of nerve blo ck. With instruction patient was able to straighten legs underneath him for support, able t o complete bed to commode transfer with heavy use of arms on front will walker. Sit-Stand, Level of [place]: moderate assist (50% patient effort), set up required, ve rbal cues required, tactile cues required Stand-Sit, Level of [place]: moderate assist (50% patient effort), set up required, ve rbal cues required, tactile cues required Gew-Crstu-Kde, Assistive Device: 2 wheeled walker (FWW) Toilet, Level of [place]: moderate assist (50% patient effort), set up [...] bed rails, HOB elevated Scoot/Bridge, Level of [place]: stand by assist Supine to Sit, Level of [place]: stand by assist Sit to Supine, Level of [place]: stand by assist Safety Issues: decreased use [...] STG Review Date 12/22/17 at 12/19/2017 1720 Yfpdkp-Foa-Twxqbv Goal Most Recent Value STG Status new at 12/19/2017 1720 STG [place] Level modified independent at 12/19/2017 1720 STG Assistive Device none at 12/19/2017 1720 Kak-Xsior-Tlh Goal Most Recent Value STG Status new at 12/19/2017 1720 STG [place] Level modified independent at 12/19/2017 1720 STG Assistive Device 2 wheeled walker (FWW) at 12/19/2017 1720 Gait Goal Most Recent Value STG Status new at 12/19/2017 1720 STG [place] Level modified independent at 12/19/2017 1720 STG Assistive Device 2 wheeled walker (FWW) at 12/19/2017 1720 STG Distance (feet) 150 feet at 12/19/2017 1720 Stair Goal Most Recent Value STG Status new at 12/19/2017 1720 STG [place] Level modified independent at 12/19/2017 1720 STG [...] surgery: 12/19/17 Operating surgeon: Dr. Julius Nowak Ostomy Rn: STEVE Sanchez Anesthesiologist: Dr. Keaton Mnuoz Preoperative diagnosis: Advanced degenerative joint disease of [...] of the knee usi ng the lamina radiology specialist and made sure all debris was removed [...] closed the capsule with closely spaced interrupted qxlwbx-vm-rbsph sutures of #2 Vicryl. We again irrigated [...] | | | | | | [place] [address] | | | | | | [phone] | | | | | | | [...] + | [facility] | [address] | [place] | [phone] | | [facility] | | [id number] | | | - LABORATORY | | [...] | | | | | mg/dL | [facility] | | | | | | [facility] | | | | | | CENTER - | | | | | | LABORATORY | | + + + + + + | eGFR, | >60Comment: GLOMERULAR | >=60 | [facility] | | | non- | FILTRATION | mL/min/1.73m2 | [facility] | | | [place]ian | RATE,ESTIMATED | | MEDICAL | | | | mL/min/1.81n7Zdpx than | | CENTER - | | [...] | | | | | mg/dL | [facility] | | | | | [...] [address] | [place] | [phone] | | [facility] | | [address] | | | - LABORATORY | | [...] | | | + +--------+ +--------+------+------+ | aspirin EC tablet 325 mg 325 [...] | | | | + +--------+ +--------+------+------+ +-------+ +--------+---+---+ | Given | 12/22/19 | [...] +---+---+ | | | +---+---+ + +-------+ +--------+---+ + | bupivacaine (liposomal) | Given | 12/20/19 | 20 mLs | | Surgical | | (EXPAREL) 1.3% injection PRN, | | 18 1:33 | | | Site | | Starting 12/19/17 at 1333, | | PM PDT | | | | | Intra-op | | | | | | + +-------+ +--------+---+ + + +---+ | | | + +---+ | diphenhydrAMINE (BENADRYL) 12.5 | | | mg/5 mL liquid 25 mg 25 mg, | | | Oral, EVERY 4 HOURS PRN, Itching, | | | Starting Tue12/19/17 at 1511, | | | Oral route is preferred., | | | Post-op/Phase II | | + +---+ | | | + +---+ | diphenhydrAMINE (BENADRYL) | | | injection 12.5 mg 12.5 mg, | | | Intravenous, EVERY 4 HOURS PRN, | | | Itching, Starting Tue12/19/17 at | | | 1511, Oral route is preferred., | | | Post-op/Phase II | | + +---+ | | | + +---+ | diphenhydrAMINE (BENADRYL) | | | tablet 25 mg 25 mg, Oral, EVERY | | | 4 HOURS PRN, Itching, Starting | | | Tue12/19/17 at 1511, Oral route | | | is preferred., Post-op/Phase II | | + +---+ | | | + +---+ + + + +---+ +---+ | lactated [...] +---+---+ | | | +---+---+ + +-------+ +--------+---+ + | ropivacaine (NAROPIN) 2 mg/mL | Given | 12/20/19 | 58 mLs | | Surgical | | (0.2%) 58 mL with EPINEPHrine 1 | | 18 1:32 | | | Site | | mg/mL 0.3 mg, ketorolac (TORADOL) | | PM PDT | | | | | 30 mg/mL 30 mg Optesia Mixture | | | | | | | Infiltration, WELL LOGGING CAPTAIN, Starting | | | | | | | 12/18/17 at 1912, For 1 dose, | | | | | | | Pre-op | | | | | | + +-------+ +--------+---+ + +---+---+ | | | +---+---+ + +-------+ +-------+---+ + | tobramycin powder PRN, | Given | 12/20/19 | 2.4 g | | Surgical | | Starting 12/19/17 at 1331, | | 18 1:31 | | | Site | | Intra-op | | PM PDT | | | | + +-------+ +-------+---+ + +---+---+ | | | +---+---+ + +-------+ +-----+---+ + | vancomycin injection PRN, | Given | 12/20/19 | 2 g | | Surgical | | Starting 12/19/17 at 1332, | | 18 1:32 | | | Site | | Intra-op | | PM PDT | | | | + +-------+ +-----+---+ + +---+---+ | | | +---+---+ documented in this encounter
--- OUTSIDE RECORDS SUMMARY | ~2020-01-09 | XMS | Encounter Summary ---
Demographics + + + | Address | [address] | | | [place] [address] | + + + | Home Phone [...] Author + + + | Author | [facility] | | | and [place] | + + + | Organization | [facility] | | [...] [place] | | | | | [address] | | + + + + + | Santo Cervantes | ECON | Unknown | | + + + + + Care Team Providers + +------+ + | Care Correctional Security Officer Name | Role | Phone | [...] Description | +--------+---------+ + + + | 01/03/ | Office | [facility] | Damian Escobedo | Status post knee | | 2018 | Visit | ORTHOPEDIC SURGERY | [address] | replacement, | | | | [address] [place] | [address] | unspecified | | | | [place], | [place] [address] | laterality (Primary | | | | [address] | [phone] | Dx) | | | | [phone] | | | +--------+---------+ + + + [...] be differe nt from the original. [facility] [place] [address] FAX: [phone] Name: Raúl Day : 1950 Age: 67 y.o. Todays Date: 01/03/2018 Primary Care Provider: Shubham Maurer MD Subjective: First postoperative visit for right total knee arthroplasty performed on 12/19/17. He is be en [facility] 4 he was placed [...] thinning therapy for the next 2 weeks. [facility] physical therapy order was placed for the [facility] in [facility]. B. Patient will follow-up in approximately 3-4 weeks' time for reevaluation and x-rays. C. Patient was advised that should they have any questions, comments or concerns to conta ct our office. Damian Escobedo PA-C 01/03/2018 14:59 This note was dictated using the Be[employer] voice recognition system. There may be minor [...] | | | | | | [place] [address] | | | | | | [phone] | | | | | | | | +--------+---------+ + + + documented as of this encounter Visit Diagnoses + + | Diagnosis | + + | Status post knee replacement, unspecified laterality - Primary | + + documented in this encounter
--- OUTSIDE RECORDS SUMMARY | ~2020-01-09 | XMS | Encounter Summary ---
Demographics + + + | Address | [address] | | | [place] [address] | + + + | Home Phone [...] Author | [facility] | | | and [place] | + + + | Organization | [facility] | | | [...] [place] | | | | | [address] | | + + + + + | Santo Cervantes | ECON | Unknown | | + + + + + Care Team Providers + +------+ + | Care Inspecting And Testing Lead Hand Name | Role | Phone | [...] + + | 12/19/ | Anesthesia | [facility] | Abeba Han | | | 2017 | Event | MED [facility] OR INTRA OP | DO [address] | | | | | [address] | [facility] | | | | | [place] | [place] [address] | | | | | [address] | [phone] | | | | | [phone] | | | +--------+ + + + [...] +----+---+ + + | | 1 | [place] | | | | 2 | 43-degrees | | | | 2 | | | | | 6 | | | +----+---+ + + | | 1 | First | | | | 2 | Inc/Proc St | | | | 2 | | | | | 9 | | | +----+---+ + + | | 1 | [place] off | | | | 3 | [...] by | 12/20/17 0425 by | | mayank | [id number] catheter system; | Ying Mcgovern, | Francoise [...] encounter OR Notes Anesthesia Postprocedure Evaluation - Abeba Han DO - 12/19/2017 10:08 PM PDTFor matting of this note might be different from the original. ANESTHESIA POSTANESTHESIA EVALUATION Raúl Day 67 y.o. male 1950 [id number] Procedure(s) RIGHT ARTHROPLASTY KNEE (Right Knee) Cooperates? Yes Mental Status Performs simple tasks. Respiratory Satisfactory - Airway patent (self maintained). Cardiovascular Satisfactory - Blood pressure and heart rate acceptable Temperature Satisfactory Pain Satisfactory N/V Control Satisfactory Hydration Satisfactory - No signs of dehydration Complications None apparent Vitals: 12/19/17 1730 12/19/17 1830 12/19/172000 BP: 138/79 122/59 136/77 Pulse: 64 83 72 Temp: 37.1 C (98.8 F) Resp: SpO2: 99% 94% 97% Electronically signed by Abeba Han DO 12/19/2017 22:08 [facility] nesthesia Procedure Notes - Abeba Han DO - 12/19/2017 1 2:18 PM PDTAssociated Order(s): ANE AIRWAY NOTEAnesthesia Airway Placement 12/19/2017 12:14 Preprocedure check: patient identified, oxygen, airway assessed, patient reassessment prior to induction, airway equipment checked and suction Rapid Sequence Induction: no Mask ventilation: easy Attempts: 1 Airway type: laryngeal mask Size: 5 Tube secured with: adhesive tape Trauma: none Tube placement verification: carbon dioxide detection Performing provider: ABEBA HAN Electronically Signed by: Abeba Han DO ESig date/time: 11/27 12:18 nesthesia Proce dure Notes - Abeba Han DO - 12/19/2017 12:09 PM PDTAssociated Order(s): ANE NERV E BLOCK CATHETER NOTEPerineural Procedure Note 12/19/2017 11:55 LDA Nerve Block Type: IPACK. Laterality: right Continuous block with catheter: No Provider requested procedure: Julius Nowak Indication: postoperative analgesia Preprocedure check: patient identified, procedure and rescue equipment checked, preevaluati on including airway assessment complete, risks/benefits discussed, consent obtained, timeout performed, reassessment prior to procedure and monitors applied Patient position: supine Preparation: chlorhexidine/isopropyl alcohol, 1% lidocaine infiltration Introducer used: no Local anesthetic infiltration volume in ml: 2 mL Technique: ultrasound Radiology image stored in patient's chart: ultrasound Needle: echogenic, stimulating, insulated and short-bevel Needle size: 22 g Needle length: 4 in Medication administered through: needle Negative findings: no blood aspirated and no paresthesia Total volume of local anesthetic solution administered: 20 mL Attempts: 1 Ease of procedure: easy Comments: SpO2, NBP monitored during procedure and recorded in anesthesia record. Patient s upine with hip abducted and knee flexed. Ultrasound probe used to identify popliteal arter y and femoral condyles. Under continuous ultrasound guidance the Stimuplex needle was advan jarret from medial to lateral between the femoral condyles and the popliteal artery with needle tip visualized throughout. 15ml 0.5% Ropivacaine with 5ml 2% lidocaine was injected in 5 ml increments as the needle was withdrawn, with intermittent negative aspiration and no pare sthesias. Ultrasound image placed in chart. Please see anesthesia record or flowsheet for vital sign documentation and see anesthesia r ecord or MAR for all medication documentation. Performing provider: ABEBA HAN Electronically Signed by: Abeba Han DO ESig date/time: 12/19/2017 12:09 nesthesia Proce dure Notes - Abeba Han DO - 12/19/2017 12:09 PM PDTAssociated Order(s): ANE NERV E BLOCK CATHETER NOTEPerineural Procedure Note 12/19/2017 11:52 Nerve block: adductor canal-femoral Laterality: right Continuous block with catheter: No Provider requested procedure: Nowak Julius Indication: postoperative analgesia Preprocedure check: patient identified, procedure and rescue equipment checked, preevaluati on including airway assessment complete, risks/benefits discussed, consent obtained, timeout performed, reassessment prior to procedure and monitors applied Patient position: supine Preparation: chlorhexidine/isopropyl alcohol, 1% lidocaine infiltration Introducer used: no Local anesthetic infiltration volume in ml: 2 mL Technique: ultrasound Radiology image stored in patient's chart: ultrasound Needle: stimulating Needle size: 22 g Needle length: 4 in Medication administered through: needle Negative findings: no blood aspirated and no paresthesia Total volume of local anesthetic solution administered: 20 mL Attempts: 1 Ease of procedure: easy Comments: SpO2, NBP monitored during procedure and recorded in anesthesia record. Ultrasou nd used to identify femoral artery and femoral nerve. Femoral artery traced distally to mid thigh. Under continuous ultrasound guidance the Stimuplex needle was advanced to the adduc tor canal lateral to the femoral artery with needle tip visualized throughout. 15ml 0.5% R opivacaine with 5ml 2% lidocaine was injected in 5 ml increments within the adductor canal w ith intermittent negative aspiration and no paresthesias. Ultrasound image placed in chart. Please see anesthesia record or flowsheet for vital sign documentation and see anesthesia r ecord or MAR for all medication documentation. Performing provider: ABEBA HAN Electronically Signed by: Abeba aHn DO ESig date/time: 12/19/2017 12:09 nesthesia Prepr ocedure Evaluation - Abeba Han DO - 12/16/2017 2:34 PM PDTFormatting of this no te might be different from the original. ANESTHESIA PREANESTHESIA EVALUATION Raúl Day 67 y.o. male 1950 [id number] Procedure(s): RIGHT ARTHROPLASTY KNEE (Right Knee) Medical history, anesthesia, medications, allergy, NPO status verified histories reviewed. ECG reviewed. Labs reviewed. Review of Systems / Med History Anesthesia History (-) PONV, difficult intubation, malignant hyperthermia Cardiovascular (-) CAD, angina , Exercise tolerance >4 METS Pulmonary (-) asthma, COPD(-) sleep apnea: Neurology (+) scoliosis Renal Lab Results Component Value Date CREA 1.08 03/26/2015 BUN 22 (H) 03/26/2015 NA 139 03/26/2015 K 4.2 03/26/2015 CL 101 03/26/2015 CO2 31 03/26/2015 . (-) end-stage renal disease Gastrointestinal/Hepatic (-) reflux/GERD. Endocrine (-) Diabetes. Other Lab Results Component Value Date WBC 6.1 03/26/2015 HGB 15.2 03/26/2015 HCT 47.1 03/26/2015 MCV 87.1 03/26/2015 PLT 273 03/26/2015 . (+) arthritis Physical Exam Airway MP II, TM >3 FB, Mouth opening >2 FB. Neck: full ROM, extends >30 degrees. Jaw protrus ion normal. Dental ; Patient denies loose, chipped or missing teeth (+) Age appropriate dentition. CV Rhythm regular. Rate normal. (-) murmur. Pulm Clear to auscultation bilaterally. Neuro Grossly normal. Anesthesia Plan ASA 2 Type: General. Induction: Intravenous. Potential problems: None anticipated. Monitors: Standard ASA monitors. Consent statement:Anesthetic plan, alternatives, risks and benefits discussed with patient. Risks discussed included (but were not limited to): dental injury, pain, sore throat, perio perative CV events, nausea, respiratory events, failed or inadequate block, bleeding, nerve damage. Consenting person understands and agrees to proceed. PARQ. Multimodal pain control including APAP and gabapentin or pregabalin unless there is an edilberto rgy or contraindication. PARQ for right-sided ipack and adductor canal nerve blocks under ul trasound guidance for post-op pain control as requested by patient and surgeon. Patient agre es with plan and wishes to proceed. . Electronically Signed by: Abeba Han DO ESig date/time: 12/16/2017 14:37 documented in th is encounter Plan of [...] | | | | | | [place] [address] | | | | | | [phone] | | | | | | | [...] | ABEBA HAN Electronically Signed by: Abeba Han, | | | ESig date/time: | | | 12/19/2017 12:18 | [...] dioxide detectionPerforming provider: ABEBA HANElectronically Signed by: Abeba | DO Jenny Jon date/time: 12/19/2017 12:18 | |Airway type: laryngeal [...] Procedure Note | + + | Abeba Han, DO - 12/19/2017 12:09 PM PDT Perineural [...] by: Abeba Mercado | | | DO Guille ESig date/time: 12/19/2017 | | | 12:09 | | + + + + + | Procedure Note | + + | Abeba Han, - 12/19/2017 12:09 PM PDT Perineural Procedure [...] ceFAZolin (ANCEF, KEFZOL) 100 | Given | 12/19/ | 2 g | | | | [...] | | | | injection PRN, Starting Tue | | 18 1:27 | | | | | 12/19/17 at 1327, Anesthesia | | PM PDT | | | | | Intra-op | | | | | | + +-------+ +------+---+---+ +---+---+ | | | +---+---+ + +-------+ +--------+---+---+ | fentaNYL (PF) injection PRN, | Given | 12/20/19 | 50 mcg | | | | Pain, Starting Tue12/19/17 at | | 18 12:30 | | [...] mLs | | | | PRN, Starting Tue12/19/17 at | | 18 11:55 | | [...] mcg/kg/m | mL/hr | | | Starting 12/19/17 at 1214, | | PM PDT | in | | | | Anesthesia Intra-op | | | | | | + +---------+ + +-------+---+ +---+---+ | | | +---+---+ + +-------+ +--------+---+---+ | ropivacaine (NAROPIN) 5 mg/mL | Given | 12/20/19 | 15 mLs | | | | (0.5%) injection PERINEURAL, | | 18 11:55 | | | | | PRN, Starting 12/19/17 at | | AM PDT | | [...] | | | | Starting 12/19/17 at 1217, | | | | | [...]
--- OUTSIDE RECORDS SUMMARY | ~2020-01-09 | XMS | Encounter Summary ---
Demographics + + + | Address | [address] | | | [place] [address] | + + + | Home Phone [...] | [facility] | | | and [place] | + + + | Organization | [facility] | | | and [...] [place] | | | | | [address] | | + + + + + | Santo Cervantes | ECON | Unknown | | + + + + + Care Team Providers + +------+ + | Care Spinal Surgeon Name | Role | Phone | + +------+ + | Shubham Maurer MD | PCP | | + +------+ + Reason for Visit +--------+--------+ + | Reason | Onset | Comments | | | Date | | +--------+--------+ + | LABS | 10/15/ | | | | 2016 | | +--------+--------+ + Encounter Details +--------+ + + + + | Date | Type | Department | Care Team | Description | +--------+ + + + + | 10/15/ | Telephone | [facility] | Jovan Alford | LABS | | 2016 | | NEUROSURGERY [address] | [address] | | | | | [address] [place] [address] [place] | | | | | [place], [place] | [address] | | | | | [address] | | | | | | [phone] | | | +--------+ + + + [...] Notes Telephone Encounter - Sarah Mclean - 10/16/2015 3:04 PM PDTLabs faxed manually to [facility] lab. P DTTelephone Encounter - Jovan Alford PA-C - 10/16/2015 1:06 PM PDTapprovedJoss valles signed by Jovan Alford PA-C at 10/16/2015 1:06 PM PDTTelephone Encounter - Sarah Musa - 10/16/2015 11:15 AM PDTMRI of lumbar spine w/wo scheduled 10/20/15 @ [facility] as requested after his last visit with STEVE Bolanos. [facility] requests for the patient to complete labs tomorrow at [facility]. Order attached for BUN and Creatinine. Please approve/deny. documented in this enc ounter Plan of [...] | | | | | | [place] [address] | | | | | | [phone] | | | | | | | [...]
--- OUTSIDE RECORDS SUMMARY | ~2020-01-09 | XMS | Encounter Summary ---
Demographics + + + | Address | [address] | | | [place] [address] | + + + | Home Phone | | + + + | Preferred Language | Unknown | + + + | Marital Status | Single | + + + | Buddhism Affiliation | 1077 | + + + | Race | White | + + + | Ethnic Group | Not or | + + + Author + + + | Author | [facility] | | | and [place] | + + + | Organization | [facility] | | [...] [place] | | | | | [address] | | + + + + + | Santo Cervantes | ECON | Unknown | | + + + + + Care Team Providers + +------+ + | Care Rope Laying Machine Operator Name | Role | Phone | + +------+ + | Shubham Maurer MD | PCP | | + +------+ + Encounter Details +--------+ + + + + | Date | Type | Department | Care Team | Description | +--------+ + + + + | 02/28/ | Hospital | [facility] | Min Tello MD | Bilateral low back | | 2015 | Encounter | MED CTR XRAY [address] | [address] | pain, with sciatica | | | | [place] | [place] [address] | presence unspecified | | | | [place] [address] | [phone] | | | | | [phone] | | | +--------+ + + + [...] Units by | | 0 | | 25/ | | (VITAMIN D-3) 1,000 | mouth Daily. | | | | 6 | | units capsule | | | | | | + + + +---------+--------+ + | ADD-BHG-Pxskcmx E | Take 2 capsules by | [...] | + + + +---------+--------+ + | [place]-3 Krill Oil | Take 2 capsules by [...] | | | | | | [place], | | | | | | [place] [address] | | | | | | [phone] | | | | | | | [...]
--- OUTSIDE RECORDS SUMMARY | ~2020-01-09 | XMS | Encounter Summary ---
Demographics + + + | Address | [address] | | | [place] [address] | + + + | Home Phone [...] Author | [facility] | | | and [place] | + + + | Organization | [facility] | | [...] [place] | | | | | [address] | | + + + + + | Santo Cervantes | ECON | Unknown | | + + + + + Care Team Providers + +------+ + | Care Box Lining Machine Feeder Name | Role | Phone | + +------+ + | Shubham Maurer MD | PCP | | + +------+ + Reason for Visit + +--------+ + | Reason | Onset | Comments | | | Date | | + +--------+ + | Surgery Appointment | 12/13/ | | | | 2017 | | + +--------+ + Encounter Details +--------+ + + + + | Date | Type | Department | Care Team | Description | +--------+ + + + + | 12/13/ | Telephone | [facility] | Julius Nowak | Surgery Appointment | | 2017 | | ORTHOPEDIC SURGERY | MD [address] | | | | | [address] [place] | [place] | | | | | [place] | [address] | | | | | [address] | | | | | | [phone] | | | +--------+ + + + [...] Miscellaneous Notes Telephone Encounter - Elsa Delaney Trouble Tracer - 12/13/2017 4:03 PM PDTPatient dory led concerning his surgery date options. Patient took 01/16/18. Patient stated that he is sc heduled to give blood to the [facility], and was scheduled to have platelets administered on . Spoke to Ochoa Escoebdo concerning this patients questions. And he advised that patient should avoid donating blood at least three weeks before surgery to avoid any complications. As for the platelets is concerned it should not affect the surgery. elephone Encounter - Ken Hong - 12/13/2017 2:36 PM PDTPatient called wanting to schedule surgery. Please call . documented i n this encounter Plan of [...] [place], | | | | | | [place] [address] | | | | | | [phone] | | | | | | | | +--------+---------+ + + + documented as of this encounter Visit Diagnoses Not on filedocumented in this encounter"
[~2020-01-09 12:13] MED LIST changes: +ARTIFICIAL TEAR15 M6 OU; +ATORVASTATIN CA80 MG PO; +CLOPIDOGREL75 MG PO; +ELIQUIS5 MG PO; +LIPITOR80 MG PO; +METOPROLOL SUCC25 MG PO; +METOPROLOL SUCC50 MG PO; +VERAPAMIL ER120 M1 PO
--- OUTSIDE RECORDS SUMMARY | 2020-01-09 12:16 | XMS ---
PreManage Notification: SONIYA MENESES Security [employer] Dipper Events No recent Security Events currently on file CRITERIA MET - [facility] - Has Care Guidelines - [facility] - 2 Visits in 30 Days CARE PROVIDERS OSWALD TALAVERA Internal Medicine 09/17/2019-Current PHONE: Unknown Radha has no Care Guidelines for this patient. Care History Medical/Surgical 09/18/2019 [facility] - DR TALAVERA- MADE A REFERRAL TO [facility] [address] MERLOS. REQUESTED URGENT TO BE PLACED ON REFERRAL. - PATIENT WAS INSTRUCTED TO TAKE METOPROLOL 25MG AT NIGHT TO LIMIT SIDE EFFECTS. - FOLLOW UP APT SCHEDULED 10/08/[address] TALAVERA -PATIENT ADVISED TO UTILIZE WALK IN CLINIC AND OR CALL TO BE SEEN FOR AN EARLIER APT WITH DR TALAVERA IF SYMPTOMS REOCCUR. 09/17/2019 [facility] Appropriate use of ED for heart related symptoms. Patient stated he is waiting for referral and callback from Dr. Talavera so he can schedule visit with time clock repairer. 09/17/2019 [facility] - Patient is currently established with [facility]. If patient is seen in the ED during business hours. Please contact [facility] at [facility]. Care Recommendation: If this patient has had 5 or more Emergency Department visits in the last 12 months.\T\nbsp; Patient will require education on the scope and purpose of the ED as an acute care provider not a Primary Care Provider and should not be utilized for chronic conditions.\T\nbsp; These are guidelines and the provider should exercise clinical judgment when providing care. EHina VISIT COUNT (12 MO.) 5 [facility] TOTAL 5 NOTE: Visits indicate total known visits. ED/UCC VISIT TRACKING (12 MO.) 01/09/2020 12:13 [facility] [place] TYPE: Emergency COMPLAINT: - L SIDE ARM TINGLING 12/21/2019 21:19 [facility] [place] TYPE: Emergency COMPLAINT: - LT FOREARM NUMBNESS/TINGLING 09/16/2019 23:23 [facility] [place] TYPE: Emergency COMPLAINT: - DIZZINESS/NAUSEA DIAGNOSES: - Unspecified atrial flutter - Other roasterman (current) drug therapy - residential (current) use of anticoagulants - Dizziness and giddiness 09/16/2019 14:58 [facility] [place] TYPE: Emergency COMPLAINT: - SOB DIAGNOSES: - Unspecified atrial flutter - Shortness of breath - residential (current) use of anticoagulants - Other roasterman (current) drug therapy 09/03/2019 12:34 [facility] [place] TYPE: Emergency COMPLAINT: - LEFT ARM NUMBNESS/TINGLING DIAGNOSES: - Cerebral infarction due to unspecified occlusion or stenosis - Anesthesia of skin - Unspecified atrial flutter - Other mcc (current) drug therapy INPATIENT VISIT TRACKING (12 MO.) 12/21/2019 21:20 [facility] [place] TYPE: Observation COMPLAINT: - TIA DIAGNOSES: - Other mcc (current) drug therapy - Atherosclerotic heart disease of [place] coronary artery witho - Hyperlipidemia, unspecified - Contact with and (suspected) exposure to other viral communic - Anesthesia of skin - Unspecified atrial flutter - Presence of coronary angioplasty implant and graft - Paresthesia of skin - 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
[2020-01-09] MEDS ORDERED: LOW DOSE ASPIRI81 MG PO (12:35)
[2020-01-09] MEDS ORDERED: CLOPIDOGREL75 MG PO (12:36)
== END 2020-01-09 15:13 | disposition home or self-care (01) ==
LOC: ED 12:13
DX: M54.12 Radiculopathy, cervical region (principal); Z79.899 Other long term (current) drug therapy; Z79.82 Long term (current) use of aspirin
CPT/HCPCS: 70551; 99284-25

== ENCOUNTER 2021-12-25 09:42 | Emergency (ER) | payer OTHER, MEDICARE ==
[~2021-12-25] VITALS: Ht 172.7 cm; Wt 81.7 kg
[~2021-12-25 09:42] MED LIST changes: +LOW DOSE ASPIRI81 MG PO
[2021-12-25] MEDS ORDERED: PREDNISONE20 MG PO (11:23)
[2021-12-25] MEDS ORDERED: HYDROCODON-ACE1 EA10 PO (11:23)
== END 2021-12-25 11:39 | disposition home or self-care (01) ==
LOC: ED 09:42
DX: S16.1XXA Strain of muscle, fascia and tendon at neck level, initial encounter (principal); X50.0XXA Overexertion from strenuous movement or load, initial encounter
CPT/HCPCS: A9270; J1100

== ENCOUNTER 2022-06-16 22:41 | Emergency (ER) | payer OTHER, MEDICARE ==
[~2022-06-16] VITALS: Ht 172.7 cm; Wt 81.0 kg
[~2022-06-16 22:41] MED LIST changes: +HYDROCODON-ACE1 EA10 PO; +PREDNISONE20 MG PO
[2022-06-17] MEDS ORDERED: FLOMAX0.4 MG PO (00:33)
[2022-06-17] MEDS ORDERED: ONDANSETRON ODT8 MG PO (00:33)
[2022-06-17] MEDS ORDERED: PERCOCET 5-3251 EACH PO (00:33)
== END 2022-06-17 01:27 | disposition home or self-care (01) ==
LOC: ED 22:41
DX: N13.2 Hydronephrosis with renal and ureteral calculous obstruction (principal); R11.2 Nausea with vomiting, unspecified; Z79.899 Other long term (current) drug therapy
CPT/HCPCS: 36415; 74176; 80053; 81001; 85025; 96361; 96374; 96375; 99284-25; A9270; J1885; J2270; J2405; J7030; J7121

== ENCOUNTER 2022-08-04 19:47 | Emergency (ER) | payer MEDICARE, OTHER ==
[~2022-08-04] VITALS: Ht 172.7 cm; Wt 75.8 kg
[~2022-08-04 19:47] MED LIST changes: +FLOMAX0.4 MG PO; +ONDANSETRON ODT8 MG PO; +PERCOCET 5-3251 EACH PO
--- OUTSIDE RECORDS SUMMARY | 2022-08-04 19:50 | XMS ---
PreManage Notification: SONIYA MENESES Security Fiberglass Machine Operator Events No recent Security Events currently on file CRITERIA MET - [facility] - 2 Visits in 30 Days CARE PROVIDERS ILAN CONNELLY Internal Medicine 09/17/2019-Current PHONE: Unknown Radha has no Care Guidelines for this patient. Care History Medical/Surgical 01/11/2020 [facility] Patient seen by PCP Dr. Talavera on 01/09/2020 for possible stroke symptoms.\T\ nbsp; Dr. Talavera made aware of patient\T\#39;s ED visit. 09/18/2019 [facility] - DR TALAVERA- MADE A REFERRAL TO [facility] MERLOS. REQUESTED URGENT TO BE PLACED ON REFERRAL. - PATIENT WAS INSTRUCTED TO TAKE METOPROLOL 25MG AT NIGHT TO LIMIT SIDE EFFECTS. - FOLLOW UP APT SCHEDULED 10/08/[address] TALAVERA -PATIENT ADVISED TO UTILIZE WALK IN CLINIC AND OR CALL TO BE SEEN FOR AN EARLIER APT WITH DR TALAVERA IF SYMPTOMS REOCCUR. 09/17/2019 [facility] Appropriate use of ED for heart related symptoms. Patient stated he is waiting for referral and callback from Dr. Talavera so he can schedule visit with hr manager. E.D. VISIT COUNT (12 MO.) 4 [facility] TOTAL 4 NOTE: Visits indicate total known visits. ED/UCC VISIT TRACKING (12 MO.) 08/04/2022 19:48 [facility] [place] TYPE: Emergency COMPLAINT: - LT KNEE PAIN 07/27/2022 19:09 [facility] [place] TYPE: Emergency COMPLAINT: - CONFUSION DIAGNOSES: - Altered mental status, unspecified - Transient global amnesia 06/16/2022 22:41 [facility] [place] TYPE: Emergency COMPLAINT: - LOW BACK PAIN DIAGNOSES: - Hydronephrosis with renal and ureteral calculous obstruction - Nausea with vomiting, unspecified - Other buttermaker continuous churn (current) drug therapy - Unspecified abdominal pain 12/25/2021 09:43 [facility] [place] TYPE: Emergency COMPLAINT: - NECK PAIN DIAGNOSES: - Cervicalgia - Overexertion from strenuous movement or load, initial encounter - Strain of muscle, fascia and tendon at neck level, initial encounter INPATIENT VISIT TRACKING (12 MO.) No inpatient visits to display in this time frame [email or web address]
[2022-08-04] MEDS ORDERED: CRUTCHES XX (20:57)
[2022-08-04] MEDS ORDERED: HYDROCODON-ACE1 EA10 PO (20:57)
[2022-08-04 21:31] VITALS: BP 112/70
== END 2022-08-04 21:32 | disposition home or self-care (01) ==
LOC: ED 19:47
DX: M25.462 Effusion, left knee (principal)
CPT/HCPCS: 73560; 99283-25; A9270